=== PATIENT | male | born 1970 | race Caucasian/White ===

== ENCOUNTER 2016-05-04 06:59 | Emergency (ER) | payer OTHER ==
[~2016-05-04] VITALS: Ht 170.2 cm; Wt 70.0 kg
[2016-05-04 07:03] VITALS: BP 131/83; PULSE 78; RESP 15; TEMP 98.3; O2SAT 99
[2016-05-04 07:04] VITALS: BP_SYST 113; BP_DIAS 71; BP_DIAS 75; PULSE 76; RESP 16; O2SAT 99
--- NOTE | 2016-05-04 07:11 | PD ---
HPI Chief Complaint: Chest Pain Time Seen by Provider: 07:02 Travel History International Travel<30 days: No Contact w/Intl Traveler<30days: No Traveled to known affect area: No History of Present Illness HPI Patient is a 45-year-old male presents the emergency department with complaint of chest pain. 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 This was not associated with any chest pain, shortness of breath or palpitations. Patient thought that this was just exertional, and it went away quickly and he has been asymptomatic since. This morning he has had now 3 episodes of substernal chest pain. Describes this as pressure and sharp that lasts for approximately 3-5 seconds and resolves. It does not radiate. He does not have any shortness of breath with this, but does feel slightly lightheaded. Patient denies any history of cardiac disease himself or family. He is a pack per day smoker, but does not have any other cardiac risk factors per patient. He has never had any provocative testing. He does note a history of anxiety. Patient called EMS. Twelve-lead unremarkable. Given 162 mg aspirin en route. Patient is pain-free at this time. [facility] Past Medical History Anxiety: Yes Past Surgical History Surgical History: No Previous Surgery Social History Alcohol Use: No Tobacco Use: Yes (one pack per day) Substance Use: No Allergies-Medications (Allergen,Severity, Reaction): Coded Allergies: No Known Allergies (Unverified , 05/04/16) Reported Meds & Prescriptions Reported Meds & Active Scripts Active No Active Prescriptions or Reported Medications Review of Systems Except as stated in HPI: all other systems reviewed are Neg Physical Exam Narrative GENERAL: Well-appearing male in no acute distress SKIN: Warm and dry. HEAD: Normocephalic. EYES: No scleral icterus. No injection or drainage. ENT: Mucous membranes pink and moist. NECK: Supple CARDIOVASCULAR: Regular rate and rhythm. No murmur appreciated. No reproducible tenderness palpation of the chest wall RESPIRATORY: No accessory muscle use. Clear to auscultation. Breath sounds equal bilaterally. GASTROINTESTINAL: Abdomen soft, non-tender, nondistended. MUSCULOSKELETAL: No obvious deformities. No edema. NEUROLOGICAL: Awake and alert. Normal speech. PSYCHIATRIC: Appropriate mood and affect; insight and judgment normal. Data Data Last Documented VS Vital Signs Date Time Temp Pulse Resp B/P Pulse Ox O2 Delivery O2 Flow Rate FiO2 05/04/16 09:00 68 14 116/64 98 05/04/16 07:04 Room Air 05/04/16 07:03 98.3 Orders Electrocardiogram (05/04/16 07:06) Basic Metabolic Panel (Bmp) (05/04/16 07:06) Ckmb (Isoenzyme) Profile (05/04/16 07:06) Complete Blood Count With Diff (05/04/16 07:06) Magnesium (Mg) (05/04/16 07:06) Prothrombin Time / Inr (Pt) (05/04/16 07:06) Act Partial Throm Time (Ptt) (05/04/16 07:06) Troponin I (05/04/16 07:06) Chest, Single Ap (05/04/16 07:06) Ecg Monitoring (05/04/16 07:06) Bilateral Bp Monitoring (05/04/16 07:06) Iv Access Insert/Monitor (05/04/16 07:06) Oximetry (05/04/16 07:06) Sodium Chloride 0.9% Flush (Ns Flush) (05/04/16 07:15) CKMB (05/04/16 07:10) CKMB% (05/04/16 07:10) Troponin I (05/04/16 09:10) Labs Laboratory Tests Test 05/04/16 05/04/16 07:10 09:15 White Blood Count 7.3 TH/MM3 Red Blood Count 4.97 MIL/MM3 Hemoglobin 13.5 GM/DL Hematocrit 39.6 % Mean Corpuscular Volume 79.6 FL Mean Corpuscular Hemoglobin 27.2 PG Mean Corpuscular Hemoglobin 34.2 % Concent Red Cell Distribution Width 13.5 % Platelet Count 151 TH/MM3 Mean Platelet Volume 8.8 FL Neutrophils (%) (Auto) 62.9 % Lymphocytes (%) (Auto) 21.3 % Monocytes (%) (Auto) 10.0 % Eosinophils (%) (Auto) 5.3 % Basophils (%) (Auto) 0.5 % Neutrophils # (Auto) 4.6 TH/MM3 Lymphocytes # (Auto) 1.5 TH/MM3 Monocytes # (Auto) 0.7 TH/MM3 Eosinophils # (Auto) 0.4 TH/MM3 Basophils # (Auto) 0.0 TH/MM3 CBC Comment DIFF FINAL Differential Comment Prothrombin Time 11.1 SEC Prothromb Time International 1.0 RATIO Ratio Activated Partial 27.3 SEC Thromboplast Time Sodium Level 140 MEQ/L Potassium Level 4.0 MEQ/L Chloride Level 106 MEQ/L Carbon Dioxide Level 27.7 MEQ/L Anion Gap 6 MEQ/L Blood Urea Nitrogen 11 MG/DL Creatinine 1.18 MG/DL Estimat Glomerular Filtration 67 ML/MIN Rate Random Glucose 87 MG/DL Calcium Level 8.3 MG/DL Magnesium Level 2.5 MG/DL Total Creatine Kinase 105 U/L Creatine Kinase MB LESS THAN 0.5 NG/ML Troponin I LESS THAN 0.02 LESS THAN 0.02 NG/ML NG/ML MDM Medical Decision Making Medical Screen Exam Complete: Yes Emergency Medical Condition: Yes Medical Record Reviewed: Yes Differential Diagnosis 45-year-old smoker here with complaint of 3 episodes of sharp/pressure chest pain lasting for seconds this morning. Differential includes ACS, atypical chest pain, anxiety, musculoskeletal, GERD, and less likely PE or dissection. Narrative Course Patient placed on monitor, IV established and blood obtained. Aspirin had been administered prior to arrival and patient is pain-free at this time. Twelve- lead EKG showed sinus rhythm without notable ST abnormalities, normal intervals. CBC, BMP, magnesium, CK-MB, troponin, coags unremarkable. A portable chest x-ray obtained and by my read shows no abnormalities. Given his overall low risk and atypical symptoms and the troponin was repeated in 2 hours without any interval change and remains undetectable. Patient was reassured and instructed to follow-up with PCP as an outpatient to establish care. Diagnosis Primary Impression: Atypical chest pain Referrals: Jennifer Valdez MD call for appointment Patient Assistance Program call for appointment Primary Care Physician call for appointment Additional Instructions: Follow-up with primary care provider to establish care as discussed. Call patient assistance program to see if you qualify. Med/Other Pt SpecificInfo: No Change to Meds Scripts No Active Prescriptions or Reported Meds Disposition: 01 DISCHARGE HOME Condition: Stable Krystina Waldron MD May 04, 2016 07:11
[2016-05-04] MEDS ORDERED: SODIUM CHLORIDE 0.9% FLUSH 5 ML FLUSH IVF PRN (07:15)
[2016-05-04 07:27] LABS: AUTOMATED NEUTROPHIL # 4.6 TH/MM3 (1.8-7.7); BASOPHIL % 0.5 % (0.0-2.0); EOSINOPHIL # 0.4 TH/MM3 (0-0.4); EOSINOPHIL % 5.3 % (0.0-4.0); HEMATOCRIT 39.6 % (39.0-51.0); HEMO FLAGS DIFF FINAL; LYMPH % 21.3 % (9.0-44.0); LYMPHOCYTE # 1.5 TH/MM3 (1.0-4.8); MEAN CELL VOLUME 79.6 FL (80.0-100.0); MEAN CORPUSCULAR HEMOGLOBIN 27.2 PG (27.0-34.0); MEAN CORPUSCULAR HGB CONC 34.2 % (32.0-36.0); NEUT % 62.9 % (16.0-70.0); PLATELET COUNT 151 TH/MM3 (150-450); RED BLOOD COUNT 4.97 MIL/MM3 (4.50-5.90); RED CELL DISTRIBUTION WIDTH 13.5 % (11.6-17.2); WHITE BLOOD COUNT 7.3 TH/MM3 (4.0-11.0)
[2016-05-04 07:37] LABS: APTT (PATIENT) 27.3 SEC (24.3-30.1); PROTHROMBIN TIME - PATIENT 11.1 SEC (9.8-11.6)
--- NOTE | 2016-05-04 07:43 | RADRPT ---
EXAM DATE/TIME: 05/04/2016 07:19 [facility] COMPARISON: No previous studies available for comparison. INDICATIONS : Chest pain. MEDICAL HISTORY : None. SURGICAL HISTORY : None. ENCOUNTER: Initial ACUITY: 1 day PAIN SCORE: 8/10 LOCATION: center chest FINDINGS: A single view of the chest demonstrates the lungs to be symmetrically aerated without evidence of mas s, infiltrate or effusion. The cardiomediastinal contours are unremarkable. Osseous structures are intact. CONCLUSION: No acute disease. Alejo Rowell MD on May 04, 2016 at 7:41 Board Certified Radiologist. This report was verified electronically.
[2016-05-04 07:53] LABS: ANION GAP 6 MEQ/L (5-15); BICARBONATE 27.7 MEQ/L (21.0-32.0); BLOOD UREA NITROGEN 11 MG/DL (7-18); CHLORIDE 106 MEQ/L (98-107); GLOMERULAR FILTRATION RATE 67 ML/MIN (>89); SODIUM (NA) 140 MEQ/L (136-145)
[2016-05-04 07:56] LABS: CREATINE KINASE 105 U/L (39-308); MAGNESIUM 2.5 MG/DL (1.5-2.5)
[2016-05-04 08:08] LABS: CKMB LESS THAN 0.5 NG/ML (0.5-3.6)
[2016-05-04 09:00] VITALS: BP 116/64; PULSE 68; RESP 14; O2SAT 98
[2016-05-04 10:50] VITALS: BP 118/72
--- NOTE | 2016-05-05 08:35 | EKG ---
Date Performed: 05/04/2016 Time Performed: 07:08:31 PTAGE: 45 years EKG: Sinus rhythm NORMAL ECG Compared to prior tracing no significant change DOCTOR: Horace Metz Interpretating Date/Time 05/05/2016 08:34:05
== END 2016-05-04 11:10 | disposition home or self-care (01) ==
LOC: NEPE 06:59
DX: R07.89 Other chest pain (principal); R42 Dizziness and giddiness; F17.210 Nicotine dependence, cigarettes, uncomplicated; X58.XXXA Exposure to other specified factors, initial encounter; Y93.89 Activity, other specified; Y99.0 Civilian activity done for income or pay
CPT/HCPCS: 71010; 80048; 82550; 82552; 83735; 84484; 85025; 85610; 85730; 93005

== ENCOUNTER 2016-07-22 15:59 | Observation (INO) | payer OTHER ==
[~2016-07-22] VITALS: Ht 172.7 cm; Wt 67.5 kg
[2016-07-22 16:08] VITALS: BP 130/80; PULSE 105; RESP 18; TEMP 101; O2SAT 98
[2016-07-22 16:42] VITALS: BP 126/77; PULSE 95; RESP 16; O2SAT 98
[2016-07-22 16:44] VITALS: RESP 16; O2SAT 99
--- NOTE | 2016-07-22 17:07 | PD ---
HPI Chief Complaint: GI Complaint Time Seen by Provider: 16:45 Travel History International Travel<30 days: No Contact w/Intl Traveler<30days: No Traveled to known affect area: No History of Present Illness HPI Patient comes in for evaluation of dark stool and bright red blood on toilet paper ongoing intermittently for 2 months. Patient states that he saw Dr. Galvan approximately 2-3 weeks ago and was told he had a mass in his rectum and colonoscopy is recommended. Patient states he's not had this done yet and was told that if he had symptoms again come back to the emergency department. Patient states he had a dark stool and bright red blood again today and came to the emergency department. Denies any nausea, vomiting, shortness of breath, chest pain, weight loss, fevers, being on any blood thinners, or headaches. Patient had associated difficulty urinating intermittently which is new. Patient reports pressure-like pain in the suprapubic and burning sensation in his rectum. Denies anything making it better. Pain is worse with extended length of sitting. Denies any radiation of the pain. Patient does not want anything for pain at this time. [facility] Past Medical History Anxiety: Yes Medical other: Yes (gi bleed) Social History Alcohol Use: No Tobacco Use: Yes (one pack per day) Substance Use: No Allergies-Medications (Allergen,Severity, Reaction): Coded Allergies: No Known Allergies (Unverified , 07/22/16) Reported Meds & Prescriptions Reported Meds & Active Scripts Active No Active Prescriptions or Reported Medications Review of Systems Except as stated in HPI: all other systems reviewed are Neg Physical Exam Narrative GENERAL: Well-developed, well nourished, in no acute distress, and non-ill appearing. SKIN: Focused skin assessment warm and dry. HEAD: Atraumatic. Normocephalic. EYES: Pupils equal and round. EOMI. No scleral icterus. No injection or drainage. ENT: No nasal bleeding or discharge. Mucous membranes pink and moist. NECK: Trachea midline. Supple. No nuclear rigidity. CARDIOVASCULAR: Regular rate and rhythm. No murmur appreciated. RESPIRATORY: No accessory muscle use. No respiratory distress. Clear to auscultation. Breath sounds equal bilaterally. GASTROINTESTINAL: Abdomen soft, non-tender, nondistended. Hepatic and splenic margins not palpable. Normal bowel sounds 4. No pulsatile mass. RECTAL: Patient refused. MUSCULOSKELETAL: No obvious deformities. No clubbing. No cyanosis. No edema. Full range of motion. NEUROLOGICAL: Awake and alert. No obvious cranial nerve deficits. Motor grossly within normal limits. Normal speech. PSYCHIATRIC: Appropriate mood and affect; insight and judgment normal. Data Data Last Documented VS Vital Signs Date Time Temp Pulse Resp B/P Pulse Ox O2 Delivery O2 Flow Rate FiO2 07/22/16 16:44 16 99 Room Air 07/22/16 16:42 95 126/77 07/22/16 16:08 101.0 Orders Complete Blood Count With Diff (07/22/16 16:27) Comprehensive Metabolic Panel (07/22/16 16:27) Lipase (07/22/16 16:27) Lactic Acid (07/22/16 16:27) Prothrombin Time / Inr (Pt) (07/22/16 16:27) Act Partial Throm Time (Ptt) (07/22/16 16:27) Urinalysis - C+S If Indicated (07/22/16 16:27) Iv Access Insert/Monitor (07/22/16 16:27) Ecg Monitoring (07/22/16 16:27) Oximetry (07/22/16 16:27) Type And Screen (07/22/16 16:27) Ct Abd/Pel W Iv Contrast(Rout) (07/22/16 16:58) Electrocardiogram (07/22/16 16:58) Ct Thorax/ Chest W Iv Contrast (07/22/16 ) (Hub Use Only)Inp Phy Cons/Ref (07/22/16 17:37) Sodium Chlorid 0.9% 500 Ml Inj (Ns 500 M (07/22/16 18:00) Sodium Chlor 0.9% 1000 Ml Inj (Ns 1000 M (07/22/16 18:30) Iohexol 350 Inj (Omnipaque 350 Inj) (07/22/16 18:18) Bladder Scan PRN (07/22/16 18:47) Admit Order (Ed Use Only) (07/22/16 18:49) Labs Laboratory Tests Test 07/22/16 16:50 White Blood Count 8.2 TH/MM3 Red Blood Count 5.00 MIL/MM3 Hemoglobin 13.7 GM/DL Hematocrit 39.1 % Mean Corpuscular Volume 78.2 FL Mean Corpuscular Hemoglobin 27.3 PG Mean Corpuscular Hemoglobin 34.9 % Concent Red Cell Distribution Width 14.9 % Platelet Count 187 TH/MM3 Mean Platelet Volume 8.7 FL Neutrophils (%) (Auto) 63.9 % Lymphocytes (%) (Auto) 22.6 % Monocytes (%) (Auto) 8.1 % Eosinophils (%) (Auto) 5.0 % Basophils (%) (Auto) 0.4 % Neutrophils # (Auto) 5.3 TH/MM3 Lymphocytes # (Auto) 1.9 TH/MM3 Monocytes # (Auto) 0.7 TH/MM3 Eosinophils # (Auto) 0.4 TH/MM3 Basophils # (Auto) 0.0 TH/MM3 CBC Comment DIFF FINAL Differential Comment Prothrombin Time 10.7 SEC Prothromb Time International 1.0 RATIO Ratio Activated Partial 25.6 SEC Thromboplast Time Sodium Level 144 MEQ/L Potassium Level 3.7 MEQ/L Chloride Level 109 MEQ/L Carbon Dioxide Level 28.1 MEQ/L Anion Gap 7 MEQ/L Blood Urea Nitrogen 14 MG/DL Creatinine 0.96 MG/DL Estimat Glomerular Filtration 85 ML/MIN Rate Random Glucose 91 MG/DL Lactic Acid Level 1.4 mmol/L Calcium Level 8.6 MG/DL Total Bilirubin 0.3 MG/DL Aspartate Amino Transf 26 U/L (AST/SGOT) Alanine Aminotransferase 33 U/L (ALT/SGPT) Alkaline Phosphatase 59 U/L Total Protein 6.8 GM/DL Albumin 3.3 GM/DL Lipase 170 U/L Blood Type A POSITIVE Antibody Screen NEGATIVE MDM Medical Decision Making Medical Screen Exam Complete: Yes Emergency Medical Condition: Yes Interpretation(s) EKG reviewed by Dr. Morocho shows sinus rhythm ventricular rate of 81. No STEMI. Differential Diagnosis Anemia, GI bleed, rectal cancer, rectal mass, metastatic disease, other Narrative Course Postvoid bladder scan performed by RN showing 138 cc. Patient was seen and examined. Initial laboratory radiologic studies were obtained and reviewed. I believe the initial temperature that was documented was is mechanical or human air as patient receiving no medication and temperature was rechecked 98.3. Discussed patient with Dr. Galvan, who is agreeable to admit patient. Discussed patient with Dr. Morocho, who is in agreement with plan of care and disposition. Discussed all findings and plan of care with patient, who is agreeable for admission. All questions were answered. Patient remained stable throughout ER course. Physician Communication Physician Communication [phone] Galvan recommends placing the patient observation for bowel prep and colonoscopy tomorrow performed by him. Diagnosis Primary Impression: Rectal mass Admitting Information Admitting Physician Requests: Observation Scripts No Active Prescriptions or Reported Meds Condition: Stable Michael Crawford July 22, 2016 17:07
[2016-07-22 17:13] LABS: AUTOMATED NEUTROPHIL # 5.3 TH/MM3 (1.8-7.7); BASOPHIL % 0.4 % (0.0-2.0); EOSINOPHIL # 0.4 TH/MM3 (0-0.4); HEMATOCRIT 39.1 % (39.0-51.0); HEMO FLAGS DIFF FINAL; LYMPH % 22.6 % (9.0-44.0); LYMPHOCYTE # 1.9 TH/MM3 (1.0-4.8); MEAN CELL VOLUME 78.2 FL (80.0-100.0); MEAN CORPUSCULAR HEMOGLOBIN 27.3 PG (27.0-34.0); MEAN CORPUSCULAR HGB CONC 34.9 % (32.0-36.0); MONO % 8.1 % (0.0-8.0); NEUT % 63.9 % (16.0-70.0); PLATELET COUNT 187 TH/MM3 (150-450); RED CELL DISTRIBUTION WIDTH 14.9 % (11.6-17.2); WHITE BLOOD COUNT 8.2 TH/MM3 (4.0-11.0)
[2016-07-22 17:21] LABS: APTT (PATIENT) 25.6 SEC (24.3-30.1); PROTHROMBIN TIME - PATIENT 10.7 SEC (9.8-11.6)
[2016-07-22 17:36] LABS: ALT (GPT) 33 U/L (12-78); ANION GAP 7 MEQ/L (5-15); AST (GOT) 26 U/L (15-37); BICARBONATE 28.1 MEQ/L (21.0-32.0); BLOOD UREA NITROGEN 14 MG/DL (7-18); CHLORIDE 109 MEQ/L (98-107); GLOMERULAR FILTRATION RATE 85 ML/MIN (>89); POTASSIUM 3.7 MEQ/L (3.5-5.1); SODIUM (NA) 144 MEQ/L (136-145)
[2016-07-22 17:39] LABS: ALKALINE PHOSPHATASE 59 U/L (45-117); TOTAL BILIRUBIN ADULT 0.3 MG/DL (0.2-1.0)
[2016-07-22] MEDS ORDERED: SODIUM CHLORID 0.9% 500 ML INJ 500 ML IV ONE (18:00)
[2016-07-22] MEDS ORDERED: IOHEXOL 350 MG/ML 10 ML VIAL (for RAD DIAG) IV ONE (18:18)
--- NOTE | 2016-07-22 18:29 | RADRPT ---
EXAM DATE/TIME: 07/22/2016 18:08 [facility] COMPARISON: CT ABDOMEN & PELVIS W CONTRAST, February 17, 2016, 21:49. INDICATIONS : Abdomen pain with rectal bleeding. IV CONTRAST: 100 cc Omnipaque 350 (iohexol) IV ; Cumulative dose for multiple exams. ORAL CONTRAST: No oral contrast ingested. RADIATION DOSE: 7.68 CTDIvol (mGy) ; Combined studies - Thorax/Abdomen/Pelvis MEDICAL HISTORY : None SURGICAL HISTORY : None. ENCOUNTER: Initial ACUITY: 1 day PAIN SCALE: 5/10 LOCATION: Bilateral abdomen TECHNIQUE: Volumetric scanning of the abdomen and pelvis was performed. Using automated exposure control and ad justment of the mA and/or kV according to patient size, radiation dose was kept as low as reasonably achievable to obtain optimal diagnostic quality images. FINDINGS: LOWER LUNGS: The visualized lower lungs are clear. LIVER: Homogeneous density without lesion. There is no dilation of the biliary tree. No calcified gallston es. There is mild hepatic steatosis. SPLEEN: Normal size without lesion. PANCREAS: Within normal limits. KIDNEYS: Normal in size and shape. There is no mass, stone or hydronephrosis. ADRENAL GLANDS: Within normal limits. VASCULAR: There is no aortic aneurysm. BOWEL/MESENTERY: The stomach, small bowel, and colon demonstrate no acute abnormality. There is no free intraperitone al air or fluid. ABDOMINAL WALL: Within normal limits. RETROPERITONEUM: There is no lymphadenopathy. BLADDER: No wall thickening or mass. REPRODUCTIVE: Within normal limits. INGUINAL: There is no lymphadenopathy or hernia. MUSCULOSKELETAL: Within normal limits for patient age. CONCLUSION: 1. Unremarkable bowel gas pattern. 2. Mild hepatic steatosis. Giuliano Damian MD on July 22, 2016 at 18:24 Board Certified Radiologist. This report was verified electronically.
[2016-07-22] MEDS ORDERED: SODIUM CHLOR 0.9% 1000 ML INJ 1,000 ML IV ONE (18:30)
--- NOTE | 2016-07-22 18:30 | RADRPT ---
EXAM DATE/TIME: 07/22/2016 18:08 [facility] COMPARISON: CHEST SINGLE AP, May 04, 2016, 7:19. INDICATIONS : Chest pain. Abdominal pain and rectal bleeding. IV CONTRAST: 100 cc Omnipaque 350 (iohexol) IV ; Cumulative dose for multiple exams. RADIATION DOSE: 7.68 CTDIvol (mGy) ; Combined studies - Thorax/Abdomen/Pelvis MEDICAL HISTORY : None SURGICAL HISTORY : None. ENCOUNTER: Initial ACUITY: 1 day PAIN SCALE: 5/10 LOCATION: Bilateral cranial TECHNIQUE: Volumetric scanning of the chest was performed. Using automated exposure control and adjustment of t he mA and/or kV according to patient size, radiation dose was kept as low as reasonably achievable to obtain optimal diagnostic quality images. FINDINGS: LUNGS: There is no consolidation or pneumothorax. No concerning pulmonary nodule is visualized. There is mi ld atelectasis in the dependent portions of the lung bases. PLEURA: There is no pleural thickening or pleural effusion. MEDIASTINUM: The heart and great vessels demonstrate no acute abnormality. There is no mediastinal or hilar lymph adenopathy. AXILLAE: Within normal limits. No lymphadenopathy. SKELETAL: Within normal limits for patient age. MISCELLANEOUS: The visualized upper abdominal organs demonstrate no acute abnormality. CONCLUSION: Unremarkable exam. Giuliano Damian MD on July 22, 2016 at 18:27 Board Certified Radiologist. This report was verified electronically.
[2016-07-22 19:26] LABS: BLOOD, URINE NEG (NEG); COMMENT (UR) CULT NOT INDICATED; CULTURE IF INDICATED CULT NOT INDICATED; GLUCOSE,URINE NEG (NEG); KETONE, URINE NEG (NEG); MUCUS URINE FEW /lpf (OCC); NITRITE,URINE NEG (NEG); URINE COLOR YELLOW (YELLW/STRAW)
[2016-07-22] MEDS ORDERED: SODIUM CHLORIDE 0.9% FLUSH 10 ML FLUSH IVF PRN (21:00)
[2016-07-22] MEDS ORDERED: MAGNESIUM CITRATE SOLN 300 ML BTL PO ONE (21:15)
[2016-07-22] MEDS ORDERED: SODIUM CHLOR 0.9% 1000 ML INJ 1,000 ML IV SCH (21:15)
[2016-07-22] MEDS: SODIUM CHLORIDE 0.9% FLUSH 10 ML FLUSH IV FLUSH SCH (22:14)
[2016-07-22] MEDS: NS + KCL 20 MEQ INJ 1,000 ML IV SCH (22:14)
[2016-07-22 22:15] VITALS: BP 122/86; PULSE 81; RESP 14; O2SAT 98
[2016-07-23] VITALS: BP 132/96; PULSE 92; RESP 20; TEMP 97.1; O2SAT 100
[2016-07-23] MEDS ORDERED: POVIDONE IODINE 5% (ANTISEPSIS KIT) 4 APPLICATIONS EACH NARE PRN (05:00)
[2016-07-23] MEDS ORDERED: INSULIN HUMAN REGULAR 1,000 UNITS/10 ML VIAL SQ PRN (05:00)
[2016-07-23] MEDS ORDERED: METOPROLOL TARTRATE 25 MG TAB PO PRN (05:00)
[2016-07-23] MEDS ORDERED: LACTATED RINGER'S 1000 ML IV PRN (05:00)
[2016-07-23] MEDS ORDERED: CHLORHEXIDINE GLUCONATE 2 % 1 PACK (2 CLOTHS) TOPICAL PRN (05:00)
[2016-07-23 08:00] VITALS: BP 124/89; PULSE 109; RESP 17; TEMP 96.6; O2SAT 100
[2016-07-23] MEDS: SODIUM CHLORIDE 0.9% FLUSH 10 ML FLUSH IV FLUSH SCH ×2 (09:00→20:58)
[2016-07-23] MEDS: NS + KCL 20 MEQ INJ 1,000 ML IV SCH ×2 (09:13→20:58)
--- NOTE | 2016-07-23 09:34 | MB ---
cc: ANDRADE ESTRADA M.D. DATE OF 1970 DATE OF SERVICE 07/23/[address] Andrade Estrada CHIEF COMPLAINT [address]. Estrada requests consultation for Mr. West regarding rectal mass. HISTORY OF PRESENT ILLNESS Mr. West is a 45-year-old man with no significant past history. He notes hemorrhoidal bleeding for several months. He has had increasing difficulty with pain in his rectum as well as tenesmus. He was seen by Dr. Estrada in clinic. He was advised to go into the emergency room with worsening symptoms which he had. He presented to the emergency room on 07/22/2016 and was seen by Errol Crawford PA-C. He was discussed with Dr. Estrada and subsequently admitted. He was seen by Dr. Estrada earlier this morning. His rectal mass was confirmed through rectal examination. He is pending colonoscopy today by Dr. Estrada. He declined a rectal exam as he has already had one earlier. He complains of feeling fatigued. 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 He denies any weight loss and reports fluctuating 5 or 10 pounds. Denies any headaches. No urinary complaints. He has no other medical problems. PAST MEDICAL HISTORY Anxiety. Hemorrhoidal bleeding. PAST SURGICAL HISTORY None. SOCIAL HISTORY Drinks alcohol rarely. He smokes a pack a day and tends to quit. Denies any illicit drug use. ALLERGIES No known drug allergies. MEDICATIONS No medications from home. FAMILY HISTORY Mother was diagnosed with breast cancer in her 60s. Father of liver disease in his 40s. PHYSICAL EXAMINATION VITAL SIGNS: Temperature 96.6, heart rate 109, respiratory rate 17, blood pressure 124/89, saturation 100%. GENERAL: Mr. West is a 45-year-old man who looks his stated age. His pupils are round and reactive to light and accommodation. Oropharynx is clear. NECK: Supple with no adenopathy. LUNGS: Clear. CARDIOVASCULAR: Exam reveals a normal rate and rhythm. ABDOMEN: Benign. LOWER EXTREMITIES: With no edema. RECTAL EXAM: Declined by the patient. LABORATORY DATA Hemoglobin of 13.7, MCV 78.2. Chemistry - BUN and creatinine are normal. Albumin is decreased at 3.3. IMAGING STUDIES CT scan of the chest was unremarkable. CT scan abdomen and pelvis shows mild steatohepatosis. ASSESSMENT AND PLAN Ms. West is a 45-year-old man with history of anxiety, hemorrhoidal bleeding. He has evidence of fatty liver by imaging study. He presents with tenesmus, rectal bleeding and pain. He is confirmed to have a rectal mass by Dr. Estrada. He is pending diagnostic biopsy, colonoscopy today. I had a lengthy discussion with Mr. West in general terms for treatment of a presumed rectal cancer. We await obviously the final biopsy confirming the diagnosis. We discussed staging CT scan of the chest, abdomen and pelvis did not show any evidence of metastatic disease. He may benefit from endoscopic ultrasound to determine the extent of the disease in the rectum and for evaluation of any other lymph nodes locally. In general, rectal cancer is treated with concurrent chemotherapy and radiation. The presence of lymph node or more extensive disease would suggest that adjuvant systemic chemotherapy would be necessary. Dr. Estrada is assessing him for the type of surgery that can be offered pending his extent of disease. Given his age of diagnosis and mother's history of breast cancer, he may benefit from genetic counseling. He will be offered consultation with genetic counselor. He will require followup on an outpatient basis as well as radiation oncology when the diagnosis of rectal cancer is confirmed. He has microcytosis suspicious for iron deficiency. He has symptoms consistent with iron deficiency as well as his rectal bleeding. Iron studies are performed. If iron deficiency is confirmed, an upper endoscopy may also be necessary to rule out a higher source of GI bleeding than in the rectum. His questions were answered to his satisfaction. Vielka Harrell MD RAD/SSB /8:56 AM /9:09 AM
--- NOTE | 2016-07-23 09:42 | MB ---
cc: MIKAEL CAICEDO M.D., ANDREW H. M.D. DATE OF CONSULTATION 07/23/2016 DATE OF 1970 CHIEF COMPLAINT Rectal mass, presumed rectal cancer, pathology pending, not yet biopsied. BRIEF HISTORY This is a 45-year-old gentleman who gives a history of having had a changing pattern of bowel function. He has had alternating constipation and diarrhea associated with blood in his stool. This has progressed to the onset of tenesmus, pain when sitting and painful bowel motions. He was apparently seen in the past by Dr. Galvan who recommended biopsies, but this had not been accomplished. He subsequently came to the emergency room last evening because of progressive symptoms associated with pain and was admitted to the hospital for further workup and assessment. He has gone on to have a CT scan of the abdomen and pelvis. This reported unremarkable bowel gas pattern, mild hepatic stenosis and no evidence of disease and specifically no evidence of metastases. Additionally, he has had a CT scan of his chest performed which was considered unremarkable. He has had blood work revealing a white count of 8200, hemoglobin 13.7 and a platelet count of 187. His electrolytes were within normal limits. His CEA was 1.3. PAST MEDICAL HISTORY His past medical history is unremarkable. He denies diabetes or heart disease. He denies previous illnesses and he has had no previous surgery. FAMILY HISTORY AND SOCIAL HISTORY He is with four children. He denies alcohol use, although he does use tobacco. He denies substance abuse. He has had a family member with colorectal cancer. He grew up in the [facility] and went to [employer]. He previously worked in [employer], but in the recent past has been unemployed. ALLERGIES None known. MEDICATIONS On no medications. REVIEW OF SYSTEMS CONSTITUTIONAL: Denies fever, sweats or weight loss. ALLERGIES: None known. HEAD, EYES, EARS, NOSE, AND THROAT: No visual problems. No difficulty hearing. No problem swallowing. No altered taste. NECK: No pain or masses. RESPIRATORY: Denies shortness of breath, cough, sputum or hemoptysis. CARDIOVASCULAR: Denies chest pains, palpitations or ankle swelling. GI: Has erectile dysfunction with symptoms as noted above. Denies nausea or vomiting. : Denies dysuria, hematuria or urgency. MUSCULOSKELETAL: Denies significant musculoskeletal complaints. NEUROLOGIC: Denies seizure, stroke, weakness or memory loss. ENDOCRINE: Denies diabetes or thyroid disease. SKIN: No skin cancers or rashes. HEMATOLOGIC: Rectal bleeding. PHYSICAL EXAM Today on exam, this gentleman is alert and oriented. VITAL SIGNS: His vital signs as documented in the chart reveal that he is afebrile with a pulse of 92 and regular, respiratory rate of 17, a blood pressure of 124/89 and a pulse oximetry on room air of 100%. HEAD, EYES, EARS, NOSE, AND THROAT: There was no jaundice. His conjunctive and eyelids are normal. She had full EOMs. Inspection of his oral cavity and oropharynx was normal. There is no evidence of adenopathy in the head and neck or supraclavicular regions. LUNGS: His lung bases were resonant on percussion clear with auscultation and there is no effusion or bronchial breathing. CARDIAC: He had a normal first and second heart sound without murmurs, rubs or bruits and his rate and rhythm was normal. There was no clubbing or axillary adenopathy. ABDOMEN: There are no abdominal masses, tenderness or splenomegaly. There is no inguinal femoral adenopathy. RECTAL: Exam revealed normal sphincter tone and perineum anteriorly. At this at the level of the prostate apex and extending further into the rectum was an elevated ulcerating mass. It did not appear to be circumferential. It extended for 4-5 cm. This was a painful lesion for him. There were no other findings on my rectal exam. EXTREMITIES: There is no ankle edema. NEUROLOGIC: Power, tone and gait were normal. REVIEW OF DATA Today, I have pulled up this gentleman's imaging and reviewed this on the monitor. I have shared the results with this gentleman and made him aware that there appears to be no evidence of metastases. This would be supported by his normal level CEA although that is not absolute. I agree with Dr. Galvan that this appears to be a rectal cancer. A biopsy course is necessary, but in this setting I would recommend preoperative radiation treatment and chemotherapy when pathology is confirmed followed by surgery in 6-8 weeks as determined by Dr. Galvan. I have reviewed how radiation is delivered, as well as the potential acute side effects. We have discussed principally diarrhea which can be controlled with medications like Imodium, fatigue and urinary bladder sensitivity. This gentleman was in agreement. I told him that while we wait for biopsy and pathology, I would like to coordinate his simulation so that we are ready to start treatment as soon as his diagnosis is confirmed. Thank you again for asking us to see this gentleman. MD TOBIN Sanchez/SHELBY /9:10 AM /9:32 AM
[2016-07-23 11:24] LABS: FERRITIN 12 NG/ML (26-388); TRANSFERRIN IRON PROFILE 221 MG/DL (200-360)
[2016-07-23 12:00] VITALS: BP 121/82; PULSE 89; RESP 16; TEMP 97.5; O2SAT 97
[2016-07-23 16:00] VITALS: BP 110/79; PULSE 75; RESP 16; TEMP 96.9; O2SAT 100
[2016-07-23] MEDS ORDERED: PROPOFOL 200 MG/20 ML AMP IV ONE (17:38)
--- NOTE | 2016-07-23 18:23 | EKG ---
Date Performed: 07/22/2016 Time Performed: 19:02:35 PTAGE: 45 years EKG: Sinus rhythm NORMAL ECG Compared to prior tracing no significant change. PREVIOUS TRACING : 05/04/2016 07.08 DOCTOR: Horace Metz Interpretating Date/Time 07/23/2016 18:21:52
[2016-07-23 20:00] VITALS: BP 152/96; PULSE 91; RESP 20; TEMP 96.7; O2SAT 100
[2016-07-24] VITALS: BP 120/80; PULSE 84; RESP 20; TEMP 97.5; O2SAT 97
--- NOTE | 2016-07-24 06:11 | MR ---
cc: ANDRADE ESTRADA M.D. DATE July 23, 2016 PREOPERATIVE DIAGNOSIS Rectal mass. PROCEDURE Limited colonoscopy with biopsies. POSTOPERATIVE DIAGNOSES 1. Very poor prep. 2. Large rectal mass with ulceration, friability and partial obstruction. SURGEON Dr. Estrada PROCEDURE The patient was placed in the left lateral decubitus position. After anesthesia sedation, rectal exam confirmed a very irregular, hard mass in the rectal vault starting just above the levators and extending mostly anteriorly, but encompassing at least half or more of the circumference of the bowel wall. Olympus colonoscope was then introduced into the rectum and advanced under direct vision through the rectum and rectosigmoid noting a very poor prep with quite a bit of solid and liquid stool present. The power retail pharmacy technician was used to irrigate quite a bit of the intraluminal fecal material but as we progressed proximally the prep became even worse with more solid stool. At point in the transverse colon it appeared that the prep was becoming more unsuitable for visualization and proximal advancement and even with irrigation the procedure was felt best to be terminated. The colonoscope was therefore gradually withdrawn visualizing the mucosal surface throughout the distal colon. No obvious obstructions no luminal inflammation was seen until the rectal vault was reached at which point a very ulcerated, friable mass was noted in the vault extending for quite a few cm. Random biopsies of the mass were obtained in several areas; it was quite hard. The lumen was easily passable but it was definitely compromised. The patient tolerated the procedure quite well and was brought to the recovery room in stable condition. MD LOLA Powell/GARY /11:14 PM /6:01 AM
[2016-07-24 08:00] VITALS: BP 101/58; PULSE 76; RESP 14; TEMP 97.3; O2SAT 97
[2016-07-24] MEDS: SODIUM CHLORIDE 0.9% FLUSH 10 ML FLUSH IV FLUSH SCH (09:00)
--- NOTE | 2016-07-24 09:47 | MH ---
cc: ANDRADE ESTRADA M.D. DATE OF ADMISSION: 07/22/2016 ADMITTING DIAGNOSIS Rectal bleeding, rectal pain, probable rectal cancer. CHIEF COMPLAINT Mr. West is a 45-year-old male who complains of severe rectal pain and bleeding. HISTORY OF PRESENT ILLNESS Mr. West is in relatively good health, seen in the emergency room back in December 2015 for rectal bleeding, presumed to be hemorrhoid in origin. Evaluation at that time made him aware of a mass in the rectum which was suspicious for a growth, possibly a cancer. Unfortunately, the patient has not had follow-up care since that visit, presenting recently to my office complaining of increasing pain, tenesmus and rectal bleeding. He denies any abdominal distension but has had increased frequency of stools, urgency and quite a bit of pelvic pressure, and also some difficulty with voiding. He says his appetite has been fair and he thinks he may have lost about 10 pounds over the last six months. Denies any nausea or vomiting. No melena. Evaluation in the office did confirm a rather significant rectal mass consistent with a carcinoma. The patient was to undergo evaluation by patient assistance for his pending colonoscopy, x-ray studies and oncologic work-up. Today he presented to the emergency room with increasing amounts of bleeding, rectal pain and difficulty urinating. He was seen in the ER and found to have a fever of 101 and was admitted for additional work-up and more rapid evaluation. PAST MEDICAL HISTORY Anxiety disorder. No abdominal surgery. 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 Drinks alcohol socially. Does smoke about a pack a day of cigarettes. ALLERGIES No known allergies. FAMILY HISTORY Mother did have breast cancer. Father of liver disease, probably from alcohol. No history of colon or rectal cancer. PHYSICAL EXAMINATION GENERAL: A very pleasant, anxious young male in no acute distress. HEENT: Remarkable for somewhat pale dry membranes, non-icteric sclera. NECK: Supple without gross adenopathy. CHEST: Relatively clear, symmetrically expanding. HEART: Regular rhythm. ABDOMEN: Soft, slightly rounded but not distended. Some tympany. No rebound or guarding or masses noted. RECTAL: Anal inspection reveals some benign external hemorrhoidal tags, not much prolapse. Digital exam reveals a mass palpable almost circumferential starting in the distal rectal vault extending almost to the dentate line, very friable and bleeding on the finger. EXTREMITIES: No cyanosis or clubbing, and minimal trace pedal edema. IMPRESSION AND PLAN Probable rectal cancer. Lengthy discussion with the patient and his family. The patient will be admitted for gentle bowel prep and colonoscopy with biopsy of the mass. Appears at office visit to be a rectal cancer but potential for a squamous cell cancer is always possible. CT scan of the chest, abdomen and pelvis has been ordered for additional metastatic work-up. Will get an oncologist and radiation therapist to see him in preparation for pre-op treatment unless it is a squamous cell carcinoma. Hopefully, the patient can have pre-op treatment without a diverting colostomy and then will have to reassess the tumor size and location for resectability and possible preservation of the anorectal sphincter with a low pelvic anastomosis versus abdominoperineal resection. Will get a routine CEA level and have him undergo the bowel prep as soon as possible. MD LOLA Powell/ROMELIA /11:23 AM /9:38 AM
[2016-07-24 12:00] VITALS: BP 108/62; PULSE 77; RESP 14; TEMP 97.1; O2SAT 96
[2016-07-24 16:00] VITALS: BP 120/69; PULSE 77; RESP 16; TEMP 97.7; O2SAT 97
--- NOTE | 2016-07-24 16:55 | HHI.PR ---
Subjective Remarks C/R Surg afebrile, VSS UO good isadora PO no BRB Objective - Vital Signs Date Time Temp Pulse Resp B/P Pulse Ox O2 Delivery O2 Flow Rate FiO2 07/24/16 16:00 97.7 77 16 120/69 97 07/23/16 18:21 21 07/22/16 22:15 Room Air Result Diagram: 07/22/16 1650 07/22/16 1650 Objective Remarks PE alert Abd - soft, min tympany, non-tender A/P Assessment and Plan Imp: path pending simulated for RT OK for DC home - RTO 1 week RT/Oncology fu next week Daniel Galvan MD July 24, 2016 16:55
== END 2016-07-24 16:49 | disposition home or self-care (01) ==
LOC: NEPC 15:59 → NEDA 18:50 → N07B 22:54
PROVIDERS: ADMIT Colon & Rectal Surgery; ATTEND Colon & Rectal Surgery
DX: C20 Malignant neoplasm of rectum (principal); F17.210 Nicotine dependence, cigarettes, uncomplicated
CPT/HCPCS: 45380; 71260; 74177; 80053; 81001; 82378; 82728; 83540; 83550; 83605; 83690; 85025; 85610; 85730; 86850; 86900; 86901; 88305; 93005; 96374; 99285; G0378; J3480; J7030; Q9967; 99222

== ENCOUNTER 2016-11-15 07:07 | Inpatient (IN) | payer OTHER ==
[2016-11-15] VITALS (35 sets, daily range): BP systolic 107–154; BP diastolic 60–87; PULSE 125–146; RESP 16–51; TEMP 98–101.4; O2SAT 84–100
[~2016-11-15] VITALS: Ht 172.7 cm; Wt 60.2 kg
[2016-11-15] MEDS ORDERED: [UNRECOGNIZED DRUG - OTHER] (07:19)
[2016-11-15] MEDS ORDERED: PERC5TAB12 PO (07:19)
[2016-11-15] MEDS ORDERED: SODIUM CHLOR 0.9% 1000 ML INJ 100 ML IV ONE (07:24)
[2016-11-15] MEDS ORDERED: SODIUM CHLOR 0.9% 1000 ML INJ 1,000 ML IV ONE ×3 (07:24→13:00)
[2016-11-15] MEDS ORDERED: ONDANSETRON HCL 4 MG/2 ML VIAL IV ONE (07:30)
[2016-11-15] MEDS ORDERED: ACETAMINOPHEN 325 MG TAB PO ONE (07:30)
--- NOTE | 2016-11-15 07:36 | PD ---
HPI Chief Complaint: Respiratory Distress Time Seen by Provider: 07:16 Travel History International Travel<30 days: No Contact w/Intl Traveler<30days: No Traveled to known affect area: No History of Present Illness HPI A 45 year old male presents to the emergency department with shortness of breath and fever. This began about 24 hours ago while at home and it has become worse so he wanted to get evaluated. The patient also developed a productive cough and feels "achy" throughout his body. He is unaware of any alleviating or aggravating factors. He denies any throat pain, congestion, or dysuria. The patient has a hx of rectal cancer which is currently being treated with radiation. The patient's symptoms are moderate, there are no current alleviating or exacerbating factors. The patient's oncologist is, Dr. Harrell and his colorectal surgeon is Dr. Galvan. The patient does not have a primary physician. History Past Medical History Tetanus Vaccination: Unknown Influenza Vaccination: No Past Surgical History Surgical History: No Previous Surgery Social History Alcohol Use: No Tobacco Use: Yes (one pack per day) Allergies-Medications (Allergen,Severity, Reaction): Coded Allergies: No Known Allergies (Unverified , 11/15/16) Reported Meds & Prescriptions Reported Meds & Active Scripts Active Reported [nausea medication] Percocet (Oxycodone-Acetaminophen) 5-325 mg Tab 1 Tab PO Q4H PRN Review of Systems Except as stated in HPI: all other systems reviewed are Neg General / Constitutional: Positive: Fever, No: Chills Respiratory: Positive: Cough, Shortness of Breath, No: Sneezing Gastrointestinal: Positive: Nausea, Vomiting, Abdominal Pain Musculoskeletal: Positive: Myalgias Physical Exam Narrative GENERAL: Well-nourished, well-developed patient who appears in mild respiratory distress. SKIN: Warm and dry. HEAD: Normocephalic. Atraumatic. EYES: No scleral icterus. No injection or drainage. ENT: Dry mucous membranes. NECK: Supple, trachea midline. No JVD or lymphadenopathy. CARDIOVASCULAR: Regular, tachycardic with a heart rate of 130. RESPIRATORY: Diminished breath sounds in the left lung base. No crackles or wheezing. No accessory muscle use. GASTROINTESTINAL: Abdomen soft, vague midline tenderness, nondistended. EXTREMITIES: No cyanosis, or edema. NEUROLOGICAL: Awake, alert, and oriented x 3. Non-focal. Data Data Last Documented VS Vital Signs Date Time Temp Pulse Resp B/P (MAP) Pulse Ox O2 Delivery O2 Flow Rate FiO2 11/15/16 09:00 128 17 132/71 (91) 100 Nasal Cannula 11/15/16 08:45 98.5 2.00 Orders Orders Complete Blood Count With Diff (11/15/16 07:24) Comprehensive Metabolic Panel (11/15/16 07:24) Prothrombin Time / Inr (Pt) (11/15/16 07:24) Act Partial Throm Time (Ptt) (11/15/16 07:24) Lactic Acid Sepsis Protocol (11/15/16 07:24) Magnesium (Mg) (11/15/16 07:24) Lipase (11/15/16 07:24) Ckmb (Isoenzyme) Profile (11/15/16 07:24) Troponin I (11/15/16 07:24) Urinalysis - C+S If Indicated (11/15/16 07:24) Influenzae A/B Antigen (11/15/16 07:24) Blood Culture (11/15/16 07:24) Chest, Single Ap (11/15/16 07:24) Blood Glucose (11/15/16 07:24) Ecg Monitoring (11/15/16 07:24) Iv Access Insert/Monitor (11/15/16 07:24) Oximetry (11/15/16 07:24) Oxygen Administration (11/15/16 07:24) Acetaminophen (Tylenol) (11/15/16 07:30) Ondansetron Inj (Zofran Inj) (11/15/16 07:30) Sodium Chlor 0.9% 1000 Ml Inj (Ns 1000 M (11/15/16 07:24) Sodium Chlor 0.9% 1000 Ml Inj (Ns 1000 M (11/15/16 07:24) Sodium Chlor 0.9% 1000 Ml Inj (Ns 1000 M (11/15/16 07:24) Cefepime Inj (Maxipime Inj) (11/15/16 07:45) Azithromycin Inj (Zithromax Inj) (11/15/16 07:45) Albuterol-Ipratropium Neb (Duoneb Neb) (11/15/16 08:00) Potassium Chloride (Kcl) (11/15/16 08:30) Potassium Chlor 20 Meq Premix (Kcl 20 Me (11/15/16 08:30) Morphine Inj (Morphine Inj) (11/15/16 08:45) Urine Culture (11/15/16 08:20) Ct Thorax/ Chest Wo Iv Contras (11/15/16 ) Admit Order (Ed Use Only) (11/15/16 08:59) Labs Laboratory Tests Test 11/15/16 07:30 11/15/16 08:20 White Blood Count 9.2 TH/MM3 Red Blood Count 3.76 MIL/MM3 Hemoglobin 9.8 GM/DL Hematocrit 28.8 % Mean Corpuscular Volume 76.4 FL Mean Corpuscular Hemoglobin 26.2 PG Mean Corpuscular Hemoglobin Concent 34.2 % Red Cell Distribution Width 15.4 % Platelet Count 55 TH/MM3 Mean Platelet Volume 9.3 FL Neutrophils (%) (Auto) 90.3 % Lymphocytes (%) (Auto) 1.7 % Monocytes (%) (Auto) 7.8 % Eosinophils (%) (Auto) 0.1 % Basophils (%) (Auto) 0.1 % Neutrophils # (Auto) 8.3 TH/MM3 Lymphocytes # (Auto) 0.2 TH/MM3 Monocytes # (Auto) 0.7 TH/MM3 Eosinophils # (Auto) 0.0 TH/MM3 Basophils # (Auto) 0.0 TH/MM3 CBC Comment AUTO DIFF Differential Comment AUTO DIFF CONFIRMED Platelet Estimate LOW Platelet Morphology Comment ENLARGED Prothrombin Time 13.3 SEC Prothromb Time International Ratio 1.2 RATIO Activated Partial Thromboplast Time 32.5 SEC Blood Urea Nitrogen 44 MG/DL Creatinine 2.29 MG/DL Random Glucose 118 MG/DL Total Protein 6.5 GM/DL Albumin 2.0 GM/DL Calcium Level 7.5 MG/DL Magnesium Level 1.8 MG/DL Alkaline Phosphatase 141 U/L Aspartate Amino Transf (AST/SGOT) 31 U/L Alanine Aminotransferase (ALT/SGPT) 26 U/L Total Bilirubin 1.9 MG/DL Sodium Level 130 MEQ/L Potassium Level 2.8 MEQ/L Chloride Level 94 MEQ/L Carbon Dioxide Level 24.6 MEQ/L Anion Gap 11 MEQ/L Estimat Glomerular Filtration Rate 31 ML/MIN Lactic Acid Level 1.2 mmol/L Total Creatine Kinase 20 U/L Troponin I LESS THAN 0.02 NG/ML Lipase 107 U/L Urine Color YELLOW Urine Turbidity CLOUDY Urine pH 6.0 Urine Specific Malcolm 1.015 Urine Protein 30 mg/dL Urine Glucose (UA) NEG mg/dL Urine Ketones NEG mg/dL Urine Occult Blood SMALL Urine Nitrite NEG Urine Bilirubin NEG Urine Urobilinogen 4.0 MG/DL Urine Leukocyte Esterase LARGE Urine RBC 5 /hpf Urine WBC 113 /hpf Urine WBC Clumps FEW Urine Squamous Epithelial Cells <1 /hpf Urine Amorphous Sediment MOD Urine Bacteria FEW /hpf Urine Mucus FEW /lpf Microscopic Urinalysis Comment CATH-CULTURE IND MDM Medical Decision Making Medical Screen Exam Complete: Yes Emergency Medical Condition: Yes Medical Record Reviewed: Yes Interpretation(s) EKG reveals sinus tachycardia with a heart rate of 135. Laboratory Tests Test 11/15/16 07:30 11/15/16 08:20 White Blood Count 9.2 TH/MM3 Red Blood Count 3.76 MIL/MM3 Hemoglobin 9.8 GM/DL Hematocrit 28.8 % Mean Corpuscular Volume 76.4 FL Mean Corpuscular Hemoglobin 26.2 PG Mean Corpuscular Hemoglobin Concent 34.2 % Red Cell Distribution Width 15.4 % Platelet Count 55 TH/MM3 Mean Platelet Volume 9.3 FL Neutrophils (%) (Auto) 90.3 % Lymphocytes (%) (Auto) 1.7 % Monocytes (%) (Auto) 7.8 % Eosinophils (%) (Auto) 0.1 % Basophils (%) (Auto) 0.1 % Neutrophils # (Auto) 8.3 TH/MM3 Lymphocytes # (Auto) 0.2 TH/MM3 Monocytes # (Auto) 0.7 TH/MM3 Eosinophils # (Auto) 0.0 TH/MM3 Basophils # (Auto) 0.0 TH/MM3 CBC Comment AUTO DIFF Differential Comment AUTO DIFF CONFIRMED Platelet Estimate LOW Platelet Morphology Comment ENLARGED Prothrombin Time 13.3 SEC Prothromb Time International Ratio 1.2 RATIO Activated Partial Thromboplast Time 32.5 SEC Blood Urea Nitrogen 44 MG/DL Creatinine 2.29 MG/DL Random Glucose 118 MG/DL Total Protein 6.5 GM/DL Albumin 2.0 GM/DL Calcium Level 7.5 MG/DL Magnesium Level 1.8 MG/DL Alkaline Phosphatase 141 U/L Aspartate Amino Transf (AST/SGOT) 31 U/L Alanine Aminotransferase (ALT/SGPT) 26 U/L Total Bilirubin 1.9 MG/DL Sodium Level 130 MEQ/L Potassium Level 2.8 MEQ/L Chloride Level 94 MEQ/L Carbon Dioxide Level 24.6 MEQ/L Anion Gap 11 MEQ/L Estimat Glomerular Filtration Rate 31 ML/MIN Lactic Acid Level 1.2 mmol/L Total Creatine Kinase 20 U/L Troponin I LESS THAN 0.02 NG/ML Lipase 107 U/L Urine Color YELLOW Urine Turbidity CLOUDY Urine pH 6.0 Urine Specific Malcolm 1.015 Urine Protein 30 mg/dL Urine Glucose (UA) NEG mg/dL Urine Ketones NEG mg/dL Urine Occult Blood SMALL Urine Nitrite NEG Urine Bilirubin NEG Urine Urobilinogen 4.0 MG/DL Urine Leukocyte Esterase LARGE Urine RBC 5 /hpf Urine WBC 113 /hpf Urine WBC Clumps FEW Urine Squamous Epithelial Cells <1 /hpf Urine Amorphous Sediment MOD Urine Bacteria FEW /hpf Urine Mucus FEW /lpf Microscopic Urinalysis Comment CATH-CULTURE IND Last Impressions Chest X-Ray 11/15/16 0724 Signed Impressions: Service Date/Time: Tuesday, November 15, 2016 07:37 - CONCLUSION: New bilateral mild basilar air space opacities which may represent subsegmental atelectasis versus evolving airspace consolidation. Katie Nevarez MD Chest CT 11/15/16 0000 Signed Impressions: Service Date/Time: Tuesday, November 15, 2016 09:10 - CONCLUSION: Multiple new solid and cavitary irregular nodules seen throughout the lungs bilaterally. These may represent foci of metastatic disease, however, given that these are new as compared to the prior exam of July 2016 concern is for possible septic emboli given the cavitary lesions. Small right-sided pleural effusion also favors possible infectious source. Katie Nevarez MD Differential Diagnosis Differential diagnosis includes pneumonia, influenza, pulmonary embolism, pleural effusion, sepsis, immunocompromise. Narrative Course IV was established, blood was drawn and labs were sent. The patient was placed on cardiac telemetry and continuous pulse oximetry monitoring. A chest x-ray was obtained. Chest x-ray reveals bibasilar opacities consistent with pneumonia. The patient has been in the hospital recently for radiation therapy and is currently on oral chemotherapy, is immunocompromised. Therefore, patient was treated with cefepime and Zithromax. The patient was administered 3 L of IV fluids and duo nebs 2. Patient also received Tylenol 650 mg orally for fever. The patient's creatinine is elevated at 2.29, last creatinine was 1.0. Lactic acid is unremarkable. The patient's UA is positive with 113 wbc' s. However, the patient did continue be tachycardic with a heart rate in the 120. He does meet severe sepsis criteria, is immunocompromised, may benefit from ICU admission overnight. Therefore, the on-call optical glass inspector was paged for admission. Critical Care Narrative Aggregate critical care time was 35 minutes. Time to perform other separately billable procedures was not included in the critical care time. My time did not include minutes spent treating any other patients simultaneously or on activities that did not directly contribute to the patient's treatment. The services I provided to this patient were to treat and/or prevent clinically significant deterioration that could result in: Anoxia, hypoxia, septic shock. I provided critical care services requiring my management, as noted below: Chart data review, documentation time, medication orders and management, vital sign assessments/reviewing monitor data, ordering and reviewing lab tests, ordering and interpreting/reviewing x-rays and diagnostic studies, care of the patient and discussion of the patient with the admitting physicians. Sepsis Criteria SIRS Criteria (2 or more): Temp > 100.9 or < 96.8, Heart rate over 90, RR > 20 or PaCO2 < 32 Sepsis Criteria (SIRS+source): Infect source susp/known Severe Sepsis (+one): Acute Oliguria/Renal Failure Criteria Outcome: Meets severe sepsis criteria Physician Communication Physician Communication The on-call optical glass inspector was paged for admission. I discussed the patient with Dr. Mccullough who agrees with admission. Diagnosis Primary Impression: Bilateral pneumonia Qualified Codes: J18.9 - Pneumonia, unspecified organism Additional Impressions: Severe sepsis UTI (urinary tract infection) Qualified Codes: N39.0 - Urinary tract infection, site not specified Admitting Information Admitting Physician Requests: Admit Condition: Stable Gilmer Bay MD Nov 15, 2016 07:36
[2016-11-15] MEDS ORDERED: CEFEPIME INJ 2,000 MG in SODIUM CHLORIDE 0.9% INJ 100 ML IV ONE (07:45)
[2016-11-15] MEDS ORDERED: AZITHROMYCIN INJ 500 MG in SODIUM CHLOR 0.9% 250 ML INJ 250 ML IV ONE (07:45)
--- NOTE | 2016-11-15 07:47 | RADRPT ---
EXAM DATE/TIME: 11/15/2016 07:37 [facility] COMPARISON: CHEST SINGLE AP, May 04, 2016, 7:19. INDICATIONS : Short of breath MEDICAL HISTORY : None. SURGICAL HISTORY : None. ENCOUNTER: Initial ACUITY: 2 days PAIN SCORE: 0/10 LOCATION: chest FINDINGS: Upright portable view of the chest demonstrates mild hypoinflation and subtle bilateral basilar airsp josue opacities which are new as compared to the prior exam. The lungs are otherwise clear. No evidence of pneumothorax. Heart size is normal. Vasculature is normal. CONCLUSION: New bilateral mild basilar air space opacities which may represent subsegmental atelectasis versus ev olving airspace consolidation. Katie Nevarez MD on November 15, 2016 at 7:44 Board Certified Radiologist. This report was verified electronically.
[2016-11-15 07:56] LABS: APTT (PATIENT) 32.5 SEC (24.3-30.1); INTERNATIONAL NORMALIZED RATIO 1.2 RATIO; PROTHROMBIN TIME - PATIENT 13.3 SEC (9.8-11.6)
[2016-11-15] MEDS ORDERED: RESP: ALBUTEROL 2.5 MG/IPRATROPIUM 0.5 MG NEB (SCH) NEB ONE (08:00)
[2016-11-15 08:16] LABS: ALKALINE PHOSPHATASE 141 U/L (45-117); ALT (GPT) 26 U/L (12-78); ANION GAP 11 MEQ/L (5-15); AST (GOT) 31 U/L (15-37); BICARBONATE 24.6 MEQ/L (21.0-32.0); BLOOD UREA NITROGEN 44 MG/DL (7-18); CHLORIDE 94 MEQ/L (98-107); GLOMERULAR FILTRATION RATE 31 ML/MIN (>89); MAGNESIUM 1.8 MG/DL (1.5-2.5); SODIUM (NA) 130 MEQ/L (136-145); TOTAL BILIRUBIN ADULT 1.9 MG/DL (0.2-1.0)
[2016-11-15 08:17] LABS: AUTOMATED NEUTROPHIL # 8.3 TH/MM3 (1.8-7.7); BASOPHIL % 0.1 % (0.0-2.0); EOSINOPHIL % 0.1 % (0.0-4.0); HEMATOCRIT 28.8 % (39.0-51.0); LYMPH % 1.7 % (9.0-44.0); LYMPHOCYTE # 0.2 TH/MM3 (1.0-4.8); MEAN CELL VOLUME 76.4 FL (80.0-100.0); MEAN CORPUSCULAR HEMOGLOBIN 26.2 PG (27.0-34.0); MEAN CORPUSCULAR HGB CONC 34.2 % (32.0-36.0); MONO % 7.8 % (0.0-8.0); NEUT % 90.3 % (16.0-70.0); PLATELET COUNT 55 TH/MM3 (150-450); RED BLOOD COUNT 3.76 MIL/MM3 (4.50-5.90); RED CELL DISTRIBUTION WIDTH 15.4 % (11.6-17.2); WHITE BLOOD COUNT 9.2 TH/MM3 (4.0-11.0)
[2016-11-15 08:18] LABS: CREATINE KINASE 20 U/L (39-308)
[2016-11-15 08:19] LABS: HEMO FLAGS AUTO DIFF; POTASSIUM 2.8 MEQ/L (3.5-5.1)
[2016-11-15] MEDS ORDERED: POTASSIUM CHLORIDE 20 MEQ CONTROLLED RELEASE TAB PO ONE (08:30)
[2016-11-15 08:42] LABS: PLATELET ESTIMATE SMEAR LOW (NORMAL); PLATELET MORPHOLOGY ENLARGED (NORMAL); SCAN/DIFF AUTO DIFF CONFIRMED
[2016-11-15 08:44] LABS: BACTERIA, URINE FEW /hpf; BLOOD, URINE SMALL (NEG); GLUCOSE,URINE NEG (NEG); KETONE, URINE NEG (NEG); MUCUS URINE FEW /lpf (OCC); NITRITE,URINE NEG (NEG); SQUAMOUS EPITHELIAL CELL URINE <1 /hpf (0-5); URINE COLOR YELLOW (YELLW/STRAW)
[2016-11-15] MEDS ORDERED: MORPHINE SULFATE 4 MG/ML INJ IV PUSH ONE (08:45)
[2016-11-15 08:47] LABS: COMMENT (UR) CATH-CULTURE IND; CULTURE IF INDICATED CATH CULTURE IND
[2016-11-15] MEDS: POTASSIUM CHLOR 20 MEQ PREMIX 100 ML IV SCH ×2 (08:52→17:03)
[2016-11-15] MEDS ORDERED: RESP: IPRATROPIUM 0.5 MG/2.5 ML NEB INH PRN (09:00)
[2016-11-15] MEDS ORDERED: MISCELLANEOUS NURSING INFORMATION XX SCH (09:00)
[2016-11-15] MEDS ORDERED: CHLORHEXIDINE GLUCONATE 2 % 1 PACK (2 CLOTHS) TOP PRN (09:00)
[2016-11-15] MEDS ORDERED: SENNOSIDES 8.6 MG TAB PO PRN (09:00)
[2016-11-15] MEDS ORDERED: MAGNESIUM HYDROXIDE SUSP 30 ML CUP PO PRN (09:00)
[2016-11-15] MEDS ORDERED: BISACODYL 10 MG SUPP RECTAL PRN (09:00)
[2016-11-15] MEDS ORDERED: LACTULOSE SYRUP 20 GM/30 ML CUP PO PRN (09:00)
--- NOTE | 2016-11-15 09:27 | RADRPT ---
EXAM DATE/TIME: 11/15/2016 09:10 [facility] COMPARISON: CHEST SINGLE AP, November 15, 2016, 7:37. CT THORAX W CONTRAST, July 22, 2016, 18:08. INDICATIONS : Pneumonia.History colon cancer.Chest pain. Shortness of Breath.Cough. RADIATION DOSE: 3.33 CTDIvol (mGy) MEDICAL HISTORY : Carcinoma, colon. Radiation. SURGICAL HISTORY : None. ENCOUNTER: Initial ACUITY: 2 days PAIN SCALE: 8/10 LOCATION: Bilateral chest TECHNIQUE: Volumetric scanning of the chest was performed. Using automated exposure control and adjustment of t he mA and/or kV according to patient size, radiation dose was kept as low as reasonably achievable to obtain optimal diagnostic quality images. DICOM format image data is available electronically for r eview and comparison. Follow-up recommendations for detected pulmonary nodules are based at a minimum on nodule size and pa tient risk factors according to Fleischner Society Guidelines. FINDINGS: LUNGS: The lungs are significant for multiple rounded solid and cavitary irregular nodules seen throughout t he lungs bilaterally as well as a small right-sided pleural effusion. These findings are new as jeannie red to the prior exam of July 2016. PLEURAE: Small right-sided pleural effusion. MEDIASTINUM: The heart and great vessels demonstrate no acute abnormality. There is no mediastinal or hilar lymph adenopathy. AXILLAE: Within normal limits. No lymphadenopathy. MUSCULOSKELETAL: Within normal limits for patient age. MISCELLANEOUS: The liver and spleen appear mildly enlarged but are incompletely imaged on this exam. CONCLUSION: Multiple new solid and cavitary irregular nodules seen throughout the lungs bilaterally. These may re present foci of metastatic disease, however, given that these are new as compared to the prior exam o f July 2016 concern is for possible septic emboli given the cavitary lesions. Small right-sided pleura l effusion also favors possible infectious source. Katie Nevarez MD on November 15, 2016 at 9:19 Board Certified Radiologist. This report was verified electronically.
[2016-11-15] MEDS ORDERED: DEXTROSE 50% IN WATER 50 ML VIAL(D50) IV PRN (09:45)
[2016-11-15] MEDS ORDERED: GLUCAGON 1 MG/ML VIAL OTHER PRN (09:45)
[2016-11-15] MEDS: RESP: ALBUTEROL 2.5 MG/IPRATROPIUM 0.5 MG NEB (SCH) INH ×3 (09:59→21:04)
[2016-11-15] MEDS ORDERED: VANCOMYCIN INJ 1,000 MG in SODIUM CHLOR 0.9% 250 ML INJ 250 ML IV ONE (10:00)
[2016-11-15] MEDS ORDERED: Vancomycin Consult Pharmacy 1 EA OTHER SCH (10:00)
[2016-11-15] MEDS: PANTOPRAZOLE SODIUM 40 MG VIAL IV SCH (10:27)
[2016-11-15] MEDS: SODIUM CHLOR 0.9% 1000 ML INJ 1,000 ML IV SCH ×3 (10:27→23:59)
--- NOTE | 2016-11-15 10:46 | RADRPT ---
EXAM DATE/TIME: 11/15/2016 10:26 [facility] COMPARISON: No previous studies available for comparison. INDICATIONS : Increased Bun and Creatinine. MEDICAL HISTORY : Carcinoma, colon. SURGICAL HISTORY : None. ENCOUNTER: Initial ACUITY: 1 day PAIN SCORE: 10/10 LOCATION: Bilateral flank MEASUREMENTS: RIGHT KIDNEY: 11.2 x 6.4 x 4.7 cm LEFT KIDNEY: 12.5 x 6.3 x 5.7 cm FINDINGS: RIGHT KIDNEY: Renal cortex is normal in thickness and echotexture. No hydronephrosis, stone, or mass. LEFT KIDNEY: Renal cortex is normal in thickness and echotexture. No hydronephrosis, stone, or mass. BLADDER: Within normal limits given the degree of distension. CONCLUSION: Normal examination. Katie Nevarez MD on November 15, 2016 at 10:44 Board Certified Radiologist. This report was verified electronically.
[2016-11-15] MEDS: INSULIN NovoLIN REGULAR SUPPLEMENTAL SCALE SQ SCH ×3 (11:00→23:00)
[2016-11-15] MEDS: DOCUSATE SODIUM 50 MG/SENNA 8.6 MG TAB PO SCH ×2 (11:00→20:20)
--- NOTE | 2016-11-15 11:00 | PD.ID.CON ---
History of Present Illness Service ID Consult Requested By Reason for Consult Evaluation and Mment of Sepsis in an Immune compromised patient. Primary Care Physician Jennifer Valdez MD Diagnoses: History of Present Illness is a 45 y/o CM with history of Rectal Cancer (Invasive moderately differentiated Adenocarcinoma with no prior lung or distant mets), and has no port or PICC line and has been receiving oral chemotherapy. Patient is followed by Dr. Vielka Harrell. Patient also sees colorectal surgeon and has undergone colonoscopy but no definite surgery. Patient also has been seeing Dr. Santana radiation oncologist and has been undergoing radiation therapy. Reportedly, the patient's last radiation therapy was on Wednesday before admission. PMHx: Patient initially presented with lower abdominal pain in January 2016. Next patient presented in April 2016 with lower abdominal pain brought in by [facility] with rectal bleeding from a [facility]. Patient was referred to Dr. Galvan colorectal surgeon. Patient was again seen in July 2016 for ongoing rectal bleeding for several months and underwent a colonoscopy which showed invasive moderately differentiated adenocarcinoma. Multiple consultants were involved and the determination was made that he did not have any lung or any other distant metastasis. Patient was eventually placed on chemotherapy and radiation therapy. Patient's mother reports that he has not been compliant with his oral chemotherapy regimen. It appears that he does comply with radiation therapy. With this background patient presents to [facility] emergency department accompanied with his mother. Patient's temperature on admission was 100 and later increased to 101.4, heart rate was 142, blood pressure 107/63 63 on presentation and currently is 157/77. Lactic acid normal. His white count on admission was 9.2 H&H 9.8/28, platelets 55, sodium 1:30, potassium 2.8, creatinine 2.29. Sepsis workup was initiated on admission and blood cultures are pending. Urine and other studies are pending. UA appears to be abnormal. Patient underwent chest x-ray which was suggestive of bilateral pneumonia. Given his history of being immune compromised patient underwent a CT of the chest which shows bilateral cavitary lesions which is suggestive of possible septic emboli. In the emergency department patient received 1 dose of cefepime as well as azithromycin and was subsequently switched to Zosyn, azithromycin and vancomycin IV. Infectious disease was consulted for the management of sepsis, pneumonia in an immune compromised patient. Review of Systems ROS Limitations: Poor Historian Constitutional: COMPLAINS OF: Diaphoretic episodes, Fatigue, Fever, Weight loss , Chills, Change in appetite, DENIES: Weight gain, Dizziness, Night Sweats Endocrine: DENIES: Heat/cold intolerance, Polydipsia, Polyuria, Polyphagia Eyes: DENIES: Blurred vision, Diplopia, Eye inflammation, Eye pain, Vision loss , Photosensitivity, Double Vision Ears, nose, mouth, throat: DENIES: Tinnitus, Hearing loss, Vertigo, Nasal discharge, Oral lesions, Throat pain, Hoarseness, Ear Pain, Running Nose, Epistaxis, Sinus Pain, Toothache, Odynophagia Respiratory: COMPLAINS OF: Cough, Sputum production (white small amounts) Cardiovascular: COMPLAINS OF: Chest pain (pleuritic-type.), DENIES: Palpitations, Syncope, Dyspnea on Exertion, PND, Lower Extremity Edema, Orthopnea, Claudication Gastrointestinal: COMPLAINS OF: Abdominal pain, Constipation, Nausea, Vomiting , Anorexia, DENIES: Black stools, Bloody stools, Diarrhea, Difficulty Swallowing Genitourinary: DENIES: Sexual dysfunction, Urinary frequency, Urinary incontinence, Urgency, Hematuria, Dysuria, Nocturia, Penile Discharge, Testicular Pain, Testicular Swelling Musculoskeletal: DENIES: Joint pain, Muscle aches, Stiffness, Joint Swelling, Back pain, Neck pain Integumentary: DENIES: Abnormal pigmentation, Nail changes, Pruritus, Rash Hematologic/lymphatic: DENIES: Bruising, Lymphadenopathy Immunologic/allergic: COMPLAINS OF: Eczema, Urticaria Neurologic: DENIES: Abnormal gait, Headache, Localized weakness, Paresthesias, Seizures, Speech Problems, Tremor, Poor Balance Psychiatric: DENIES: Anxiety, Confusion, Mood changes, Depression, Hallucinations, Agitation, Suicidal Ideation, Homicidal Ideation, Delusions Except as stated in HPI: all other systems reviewed are Neg Past Family Social History Allergies: Coded Allergies: No Known Allergies (Unverified , 11/15/16) Past Medical History Colon Cancer IVDA Past Surgical History None Reported Medications Reported Meds & Active Scripts Active Reported [nausea medication] Percocet (Oxycodone-Acetaminophen) 5-325 mg Tab 1 Tab PO Q4H PRN Active Ordered Medications Current Medications Medications (Trade) Dose Ordered Sig/Osvaldo Route Start Time Stop Time Status Last Admin (Protonix Inj) 40 mg DAILY IV 11/15/16 10:00 11/15/16 10:27 (Duoneb Neb) 1 ampule Q6HR NEB INH 11/15/16 10:00 11/15/16 09:59 (Atrovent Neb) 0.5 mg Q2HR NEB PRN INH 11/15/16 09:00 Miscellaneous Information 1 Q361D XX 11/15/16 09:00 (Chlorhexidine 2% Cloth) 3 pack Taper DAILY@04 TOP 11/16/16 04:00 11/12/17 03:59 (Chlorhexidine 2% Cloth) 3 pack UNSCH PRN TOP 11/15/16 09:00 (Marina-Colace) 1 tab BID PO 11/15/16 11:00 (Milk Of Magnesia Liq) 30 ml Q12H PRN PO 11/15/16 09:00 (Senokot) 17.2 mg Q12H PRN PO 11/15/16 09:00 (Dulcolax Supp) 10 mg DAILY PRN RECTAL 11/15/16 09:00 (Lactulose Liq) 30 ml DAILY PRN PO 11/15/16 09:00 (D50w (Vial) Inj) 50 ml UNSCH PRN IV 11/15/16 09:45 (Glucagon Inj) 1 mg UNSCH PRN OTHER 11/15/16 09:45 (NovoLIN R SUPPLEMENTAL SCALE) 1 Q6H SQ 11/15/16 11:00 Sodium Chloride 1,000 ml @ 125 mls/hr Q8H IV 11/15/16 09:45 11/15/16 10:27 Piperacillin Sod/ Tazobactam Sod 50 ml @ 100 mls/hr Q6H IV 11/15/16 12:00 Azithromycin 500 mg/Sodium Chloride 250 ml @ 250 mls/hr Q24H IV 11/16/16 08:00 Pharmacy Profile Note 0 ml @ 0 mls/hr UNSCH OTHER 11/15/16 10:00 Sodium Chloride 1,000 ml @ 999 mls/hr BOLUS ONCE IV 11/15/16 12:15 11/15/16 13:15 UNV (Percocet 5-325 Mg) 1 tab Q6H PRN PO 11/15/16 12:15 UNV Family History Mother had breast cancer, father had liver disease Multiple family members with colon cancer. Social History Intravenous drug abuse, denies any alcohol or smoking. Lives with his mother. Physical Exam Vital Signs Vital Signs Date Time Temp Pulse Resp B/P (MAP) Pulse Ox O2 Delivery O2 Flow Rate FiO2 11/15/16 10:43 131 19 151/77 (101) 99 Nasal Cannula 2.00 11/15/16 10:00 125 20 154/75 (101) 98 Nasal Cannula 2.00 11/15/16 09:00 128 17 132/71 (91) 100 Nasal Cannula 11/15/16 08:45 98.5 129 18 130/69 (89) 99 Nasal Cannula 2.00 11/15/16 08:15 130 19 127/72 (90) 98 Nasal Cannula 2.00 11/15/16 07:45 138 17 115/60 (78) 99 Nasal Cannula 2.00 11/15/16 07:30 Nasal Cannula 2.00 11/15/16 07:26 101.4 138 20 115/60 (78) 97 Nasal Cannula 2.00 11/15/16 07:20 92 Room Air 11/15/16 07:20 Nasal Cannula 2.00 11/15/16 07:11 100.0 142 36 107/63 (78) 94 Room Air Physical Exam GENERAL: This is a well-nourished, well-developed patient, in no apparent distress. SKIN: No rashes, ecchymoses or lesions. Cool and dry. HEAD: Atraumatic. Normocephalic. No temporal or scalp tenderness. EYES: Pupils equal round and reactive. Extraocular motions intact. No scleral icterus. No injection or drainage. ENT: Nose without bleeding, purulent drainage or septal hematoma. Throat without erythema, tonsillar hypertrophy or exudate. Uvula midline. Airway patent. NECK: Trachea midline. Supple, nontender, no meningeal signs. CARDIOVASCULAR: Regular rate and rhythm without murmurs, gallops, or rubs. RESPIRATORY: Clear to auscultation. Breath sounds equal bilaterally. No wheezes , rales, or rhonchi. GASTROINTESTINAL: Abdomen soft, non-tender, nondistended. MUSCULOSKELETAL: Extremities without clubbing, cyanosis, or edema. No joint tenderness, effusion, or edema noted. No calf tenderness. Negative Homans sign bilaterally. NEUROLOGICAL: Awake and alert. Grossly nonfocal. Rectal deferred. Psych cooperative, flat affect. IV line sites with no evidence of infection. Laboratory Laboratory Tests Test 11/15/16 07:30 11/15/16 08:20 White Blood Count 9.2 Red Blood Count 3.76 Hemoglobin 9.8 Hematocrit 28.8 Mean Corpuscular Volume 76.4 Mean Corpuscular Hemoglobin 26.2 Mean Corpuscular Hemoglobin Concent 34.2 Red Cell Distribution Width 15.4 Platelet Count 55 Mean Platelet Volume 9.3 Neutrophils (%) (Auto) 90.3 Lymphocytes (%) (Auto) 1.7 Monocytes (%) (Auto) 7.8 Eosinophils (%) (Auto) 0.1 Basophils (%) (Auto) 0.1 Neutrophils # (Auto) 8.3 Lymphocytes # (Auto) 0.2 Monocytes # (Auto) 0.7 Eosinophils # (Auto) 0.0 Basophils # (Auto) 0.0 CBC Comment AUTO DIFF Differential Comment AUTO DIFF CONFIRMED Platelet Estimate LOW Platelet Morphology Comment ENLARGED Prothrombin Time 13.3 Prothromb Time International Ratio 1.2 Activated Partial Thromboplast Time 32.5 Blood Urea Nitrogen 44 Creatinine 2.29 Random Glucose 118 Total Protein 6.5 Albumin 2.0 Calcium Level 7.5 Magnesium Level 1.8 Alkaline Phosphatase 141 Aspartate Amino Transf (AST/SGOT) 31 Alanine Aminotransferase (ALT/SGPT) 26 Total Bilirubin 1.9 Sodium Level 130 Potassium Level 2.8 Chloride Level 94 Carbon Dioxide Level 24.6 Anion Gap 11 Estimat Glomerular Filtration Rate 31 Lactic Acid Level 1.2 Total Creatine Kinase 20 Troponin I LESS THAN 0.02 Lipase 107 Urine Color YELLOW Urine Turbidity CLOUDY Urine pH 6.0 Urine Specific [place] 1.015 Urine Protein 30 Urine Glucose (UA) NEG Urine Ketones NEG Urine Occult Blood SMALL Urine Nitrite NEG Urine Bilirubin NEG Urine Urobilinogen 4.0 Urine Leukocyte Esterase LARGE Urine RBC 5 Urine WBC 113 Urine WBC Clumps FEW Urine Squamous Epithelial Cells <1 Urine Amorphous Sediment MOD Urine Bacteria FEW Urine Mucus FEW Microscopic Urinalysis Comment CATH-CULTURE IND Date/Time Source Procedure Growth Status 11/15/16 07:35 Blood Peripheral Aerobic Blood Culture Pending Received 11/15/16 07:35 Blood Peripheral Anaerobic Blood Culture Pending Received 11/15/16 07:30 Nasal Aspirate Influenza Types A,B Antigen (MAHOGANY) - Final NEGATIVE FOR FLU A AND B ANTIGEN.... Complete 11/15/16 08:20 Urine Catheterized Urine Urine Culture Pending Received Result Diagram: 11/15/16 0730 11/15/16 0730 Imaging Last Impressions Chest X-Ray 11/15/16 0724 Signed Impressions: Service Date/Time: Tuesday, November 15, 2016 07:37 - CONCLUSION: New bilateral mild basilar air space opacities which may represent subsegmental atelectasis versus evolving airspace consolidation. Katie Nevarez MD Renal Ultrasound 11/15/16 0000 Signed Impressions: Service Date/Time: Tuesday, November 15, 2016 10:26 - CONCLUSION: Normal examination. Katie Nevarez MD Chest CT 11/15/16 0000 Signed Impressions: Service Date/Time: Tuesday, November 15, 2016 09:10 - CONCLUSION: Multiple new solid and cavitary irregular nodules seen throughout the lungs bilaterally. These may represent foci of metastatic disease, however, given that these are new as compared to the prior exam of July 2016 concern is for possible septic emboli given the cavitary lesions. Small right-sided pleural effusion also favors possible infectious source. Katie Nevarez MD Assessment and Plan Assessment and Plan Severe Sepsis (fever, tachy, low BP, bandemia, source: lung, endocarditis) Probable Endocarditis/bacteremia Lung lesions: septic emboli most likely. Other differentials include cancer related mets. Very less likely to be fungal or TB. Acute renal failure: prerenal, sepsis. Acute metabolic encephalopathy: sepsis, less likely to be meningitis. Hyponatremia: Infection, metabolic, meningitis Recommendations: Continue Zosyn IV Continue Vanco IV (target trough 15-20) DC Azithro IV cannot give tobramycin as in [facility]. Follow cultures Follow clinically. Check 2 D ECHO. Patient admitted to doing drugs multiple times 3-4 weeks back. Check Hepatitis Profile Check HIV Check urine legionella and Pneumo Ag. Will need CT A/P and Brain once Cr improves. Will assess in am Plan d/w Mom and patient. Case d.w , [facility]. Time spent in excess of 80 mins total. Critical thinking, decision making, reviewed MAR. d/w Multiple health care team members. Lucille Lizama MD Nov 15, 2016 10:59
--- NOTE | 2016-11-15 11:21 | MH ---
cc: WILL SPRINGER M.D. DATE OF : 1970 DATE OF ADMISSION: 11/15/2016 ADMITTING DIAGNOSIS: Critical care admission HISTORY OF PRESENT ILLNESS: The patient is a 45-year-old male with past medical history of colon cancer on radiation treatment last session on Wednesday and has been on radiation for the past 2-3 months being followed by Dr. Harrell, his oncologist, and Dr. Galvan. He presented to [facility] emergency department with a couple of days history of shortness of breath, pleuritic chest pain with deep inspiration, dry cough and feeling nauseous. The patient denies any exposure to sick contacts. In addition, he denies any prior history of pneumonia or flu. He was found to have a temperature of 101.4 orally in the ER. In addition he was tachycardiac with heart rate of 120s to 130s. Chest x-ray in the ER showed new bilateral mild air space opacities. The patient subsequently had CT scan of the chest which showed multiple new solid and cavitary irregular nodules seen throughout the lungs bilaterally, and small right-sided pleural effusion. His laboratory data is significant for renal failure with a creatinine level of 2.29 and hypokalemia with a potassium level of 2.8. His lactic acid level measured at 1.2. The patient also is thrombocytopenic with a platelet count of 55, however, his INR is 1.2. In the ED he was given three liters of Crystalloid in addition to cefepime, azithromycin, Tylenol and DuoNeb. When seen in the ER he was on room air oxygen with saturation 96%. However, tachycardiac with heart rate of 123 and blood pressure 154/75. He denies any vomiting, abdominal pain. PAST MEDICAL HISTORY: Significant for colon cancer. PAST SURGICAL HISTORY Unremarkable. ALLERGIES NO KNOWN DRUG ALLERGIES. SOCIAL HISTORY Occasional smoker and drinker. MEDICATIONS AT HOME Percocet p.r.n. FAMILY HISTORY Reviewed and noncontributory. REVIEW OF SYSTEMS As per HPI. The rest of the review of systems is unremarkable. PHYSICAL EXAMINATION: The patient is a 45 year-old male lying in bed in mild distress. VITAL SIGNS: Temperature 101.4, pulse of 123, blood pressure 1545, saturation 96% on room air. HEENT: Atraumatic, normocephalic, pupils equal round reactive to light and accommodation, extraocular muscles intact. Conjunctivae pink. Nonicteric sclerae. Oral mucosa within normal. Neck: Supple. No JVD, adenopathy, thyromegaly. Trachea midline Cardiovascular: Exam tachycardiac, normal S1-S2. No murmurs, rubs or gallops noted. Pulmonary exam: Bilateral equal air entry with a few coarse breath sounds. Abdomen: Soft, nontender, no distension. Positive bowel sounds. Extremities: No cyanosis, clubbing or edema. Neuro: No focal sensory deficit. LABORATORY DATA Sodium of 130, potassium 2.8, chloride 94, CO2 24, BUN 44, creatinine 2.29, glucose 180, lactic acid 1.2. Total bilirubin 1.9, AST 31, ALT 26, ALK phos 141, total CK 20. Troponin less than 0.02. WBC 9.2, hemoglobin 9.8, hematocrit 28, platelet count 55, INR 1.2, PT 13.3, PTT 32. Urinalysis showed large leukocyte esterase 113, WBC 5, RBC few bacteria. RADIOGRAPHY CT chest showed multiple new solid and cavitary irregular nodules. IMPRESSION 1. Respiratory insufficiency. Solid and cavitary nodules bilaterally. Differential diagnosis, Metastatic disease versus septic emboli. 2. Accumulated acquired pneumonia. 3. Urinary tract infection. 4. Acute renal failure. 5. Hypokalemia. 6. Anemia and thrombocytopenia. 7. Colon cancer on radiation treatment. RECOMMENDATIONS 1. Monitor neuro status and avoid any sedatives. 2. Oxygen p.r.n. to maintain sats above 92%. 3. Bronchodilator in the form of DuoNeb q6 plus q2 p.r.n. for shortness of breath. 4. CT scan of the chest reviewed which showed cavitary and irregular nodules throughout the lungs bilaterally. Differential diagnosis septic emboli versus metastatic disease. 5. Monitor heart rate and blood pressure closely and maintain MAP greater than 65 mmHg. 6. Will obtain 2-D echocardiogram to rule out vegetations. 7. He was given 3 liters of Crystalloid in the ED. Will continue with maintenance fluids in the form of NS at 125 mL an hour. 8. Monitor renal function I&O and avoid nephrotoxins. Insert the Ricketts, continue with IV fluids as stated above. The patient is receiving potassium replacement for K of 2.9. Will obtain renal ultrasound to rule out hydronephrosis. 9. Keep n.p.o. for now. Place on Protonix 40 milligrams IV daily for GI prophylaxis. 10. Continue with broad-spectrum antibiotic. Will continue with Zosyn, azithromycin and vancomycin. 11. Nasal aspirate in the ED is negative for influenzae. Follow up on the blood and urine culture. In addition will check strep pneumoniae, Legionella, urinary antigen. 12. Will consult Infectious Disease service. The case discussed with Dr. Miley Lizama. 13. Monitor CBC. Check fibrinogen level. 14. Will consult Dr. Harrell from oncology regarding his colon cancer as the patient is known to her. 15. Place on sliding scale insulin with Accu-Cheks for glycemic control. 16. GI prophylaxis with Protonix 40 milligrams daily and DVT prophylaxis with SCDs. Will hold off on chemical anticoagulation prophylaxis for now given the underlying thrombocytopenia. Further recommendations will be based on the hospital course. MD CHLOE Donaldson/BLAINE /10:09 AM /10:51 AM
[2016-11-15 11:44] LABS: BLOOD GAS BASE EXCESS -5.6 mmol/L (-2-2); BLOOD GAS CARBOXYHEMOGLOBIN 1.7 % (0-4); BLOOD GAS HCO3 18 mmol/L (22-26); BLOOD GAS METHEMOGLOBIN 1.1 % (0-2); BLOOD GAS O2 HGB SATURATION 92 % (90-100); BLOOD GAS OXYGEN CONTENT 12.4 Vol % (12.0-20.0); BLOOD GAS PCO2 26 mmHg (38-42); BLOOD GAS PO2 77 mmHg (61-120); BLOOD GAS TOTAL HGB 9.5 G/DL (12.0-16.0); TEMP CORR TO 98.6
[2016-11-15 11:45] LABS: CRITICAL VALUE YES; FIO2 21 %
[2016-11-15 11:46] LABS: DRAW SITE LT BRACHIAL; NUMBER OF ARTERIAL PUNCTURES 1; STAT NO
[2016-11-15] MEDS ORDERED: oxyCODONE/ACETAMINOPHEN 5 MG/325 MG TAB PO PRN (12:15)
[2016-11-15] MEDS: oxyCODONE/ACETAMINOPHEN 5 MG/325 MG TAB PO PRN ×2 (13:15→21:51)
[2016-11-15 14:13] LABS: BICARBONATE 17.2 MEQ/L (21.0-32.0)
[2016-11-15 14:20] LABS: POTASSIUM 3.9 MEQ/L (3.5-5.1)
[2016-11-15 14:36] LABS: CALCIUM-PROTEIN CORRECTED 7.4 MG/DL (8.5-10.1)
--- NOTE | 2016-11-15 14:49 | MB ---
cc: ISAIAS DAMON DATE OF CONSULTATION: 11/15/2016. REASON FOR CONSULTATION: Patient with a history of rectal cancer admitted to the hospital with multiple cavitary lung lesions. PATIENT PROFILE: The patient is a 55-year-old male. He is single. He lives with his mother. He has no children. 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 He had smoked a pack of cigarettes per day but he is not smoking presently. Alcohol intake has been minimal in the past. HISTORY OF PRESENT ILLNESS: The patient is a 45-year-old male who had a history of rectal bleeding and pain in the rectum. He was seen by Dr. Galvan, who is a colorectal surgeon, and on examination had a mass. He underwent limited colonoscopy with biopsies on July 23, 2016 and he was found to have a large rectal mass with ulceration, friability and partial obstruction. The biopsy revealed invasive moderately differentiated adenocarcinoma. He had imaging studies on 07/22/2016, which included a CT of the thorax which was unremarkable and specifically no evidence of metastatic disease. On 07/22/2016, he had a CT scan of the abdomen and pelvis with contrast and this was unremarkable except for mild hepatic steatosis. The patient received preoperative radiation therapy administered by Dr. Santana completed on 11/10/2016. He took what I believe is Xeloda. He was not able to complete the last two weeks of Xeloda due to the fact that he felt ill. He was not always consistent with follow up. He was having pain in the pelvic area when he was receiving radiation. Between two and three weeks ago, he injected himself on three occasions with IV Dilaudid. During the past week, he has felt increasingly painful. He has had severe pain in the chest when he takes a deep breath. He has recently developed fevers and went to the emergency room. He was found to be febrile. Temperature on 11/15 was 101.4. Imaging studies include on 11/15/[address] scan of the thorax showing multiple cavitary and solid nodules throughout the lungs bilaterally. These are new when compared to the study of Jul, 2016 and most of these are peripheral. A renal ultrasound is unremarkable. CBC and platelet count from 11/15: Hemoglobin 9.8, white count 9200 and platelets are 55,000. Other laboratory tests include: BUN of 44, creatinine of 2.29, potassium 2.8, bilirubin is 1.9, AST 31, ALT is 26, alkaline phosphatase is 141. The most recent CEA is 1.4 on 08/26/2016. PAST SURGICAL HISTORY: Rectal biopsy 07/24/2016 revealing adenocarcinoma. 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 MEDICATIONS PRIOR TO ADMISSION: Oxycodone 5/325 one every four hours PRN pain. ALLERGIES: NO KNOWN ALLERGIES. REVIEW OF SYSTEMS: No change in vision or hearing. He has severe pain in the chest especially when he takes a deep breath. He has mild abdominal pain. He has slight soreness around the rectal area but it is not extreme. He has urinary frequency. He does not have bone pain, although he has back pain which he attributes to the lungs. Neurologic: No focal weakness. PHYSICAL EXAMINATION: GENERAL: The physical exam reveals a gentleman who is in distress. He is in pain. VITAL SIGNS: Blood pressure 150/70, respiratory rate 18, pulse 130, temperature 98. HEAD, EYES, EARS, NOSE, THROAT: Head is normocephalic. The sclerae and conjunctivae are normal. Oropharynx unremarkable. LYMPHATIC: There is no cervical, supraclavicular, axillary or inguinal adenopathy. HEART: Regular rhythm. No murmur. LUNGS: Clear. No wheezes, rales or rhonchi. ABDOMEN: Abdomen soft. Slight diffuse tenderness. EXTREMITIES: No edema. MUSCULOSKELETAL: No bone pain. NEUROLOGIC: No focal weakness. ADDITIONAL INFORMATION: A bladder scan was done and there was no evidence of urinary retention. ASSESSMENT and PLAN The patient is a 45-year-old male who has an adenocarcinoma of the rectum without metastatic disease who completed radiation therapy and limited chemotherapy 1 week ago. He now presents with fever, diffuse peripheral cavitary lung lesions and a hx of injecting himself with IV Dilaudid. The time course and presentation are most consistent with bacterial endocarditis and not metastatic rectal cancer to the lungs. I will order a repeat CEA which has been normal in the past. Hopefully the infection will resolve in 4-6 weeks and he will then be able to go on to surgery. He has significant chest pain. I have adjusted his pain medicines MD CASANDRA Willard/MIGUEL /1:03 PM /2:34 PM KOREY
--- NOTE | 2016-11-15 15:02 | ECHRPT ---
Indication: R/o vegetation CONCLUSIONS The left ventricular systolic function is low normal with an estimated ejection fraction in the rang e of 50- 55%. Normal left ventricular size. Wall thickness is normal. No regional wall motion abnormalities are present. Findings consistent with vegetation on the anterior leaflet of the tricuspid valve. There is severe tricuspid regurgitation. The estimated pulmonary arterial pressure is 45 mmHg. The pulmonary valve is not well visualized. BP: 129 / 66 HR: 87 Rhythm: Other MEASUREMENTS (Male / Female) Normal Values Technical Quality:Good 2D ECHO LV Diastolic Diameter PLAX 3.8 cm 4.2 - 5.9 / 3.9 - 5.3 cm LV Systolic Diameter PLAX 3.1 cm IVS Diastolic Thickness 1.2 cm 0.6 - 1.0 / 0.6 - 0.9 cm LVPW Diastolic Thickness 1.2 cm 0.6 - 1.0 / 0.6 - 0.9 cm LV Relative Wall Thickness 0.6 RV Internal Dim ED PLAX 2.5 cm LVOT Diameter 2.0 cm LA Systolic Diameter LX 3.6 cm 3.0 - 4.0 / 2.7 - 3.8 cm LV Ejection Fraction MOD 4C 54.4 % LV Cardiac Index MOD 4C 2364.7 cm/minm LV Ejection Fraction 4C AL 55.6 % LV Cardiac Index 4C AL 2481.8 cm/minm M-MODE Aortic Root Diameter MM 2.3 cm AV Cusp Separation MM 1.6 cm DOPPLER AV Peak Velocity 133.0 cm/s AV Peak Gradient 7.1 mmHg LVOT Peak Velocity 123.0 cm/s LVOT Peak Gradient 6.1 mmHg AV Area Cont Eq pk 2.9 cm TR Peak Velocity 296.0 cm/s TR Peak Gradient 35.0 mmHg PV Peak Velocity 119.0 cm/s PV Peak Gradient 5.7 mmHg FINDINGS LEFT VENTRICLE The left ventricular systolic function is low normal with an estimated ejection fraction in the rang e of 50- 55%. Normal left ventricular size. Wall thickness is normal. No regional wall motion abnormalities are present. RIGHT VENTRICLE Normal right ventricular size and systolic function. LEFT ATRIUM The left atrial size is normal. RIGHT ATRIUM The right atrial size is normal. ATRIAL SEPTUM Normal atrial septal thickness without atrial level shunting by limited color doppler interrogation. AORTA The aortic root and proximal ascending aorta are normal in size on limited imaging. MITRAL VALVE Structurally normal mitral valve. No mitral valve stenosis or regurgitation. AORTIC VALVE Trileaflet aortic valve. No aortic valve stenosis or regurgitation. TRICUSPID VALVE Findings consistent with vegetation on the anterior leaflet of the tricuspid valve. There is severe tricuspid regurgitation. The estimated pulmonary arterial pressure is 45 mmHg. PULMONARY VALVE The pulmonary valve is not well visualized. VESSELS The inferior vena cava is normal in size. PERICARDIUM No pericardial effusion. Darrell Farnsworth MD (Electronically Signed) Final Date:15 November 2016 15:01
[2016-11-15] MEDS: HYDROmorphone HCL PF 1 MG/ML VIAL IV PUSH PRN ×3 (15:15→23:55)
[2016-11-15] MEDS: PIPERACIL-TAZO 2.25 GM PREMIX 50 ML IV SCH ×3 (17:00→23:58)
[2016-11-15] MEDS: ONDANSETRON HCL 4 MG/2 ML VIAL IV PUSH PRN (20:37)
[2016-11-16] VITALS (49 sets, daily range): BP systolic 97–151; BP diastolic 52–85; PULSE 118–145; RESP 19–45; TEMP 97.7–100; O2SAT 80–100
[2016-11-16] MEDS: oxyCODONE/ACETAMINOPHEN 5 MG/325 MG TAB PO PRN ×5 (01:58→21:40)
[2016-11-16] MEDS: RESP: ALBUTEROL 2.5 MG/IPRATROPIUM 0.5 MG NEB (SCH) INH ×4 (03:33→19:42)
[2016-11-16] MEDS: HYDROmorphone HCL PF 1 MG/ML VIAL IV PUSH PRN ×6 (03:40→21:41)
[2016-11-16] MEDS: CHLORHEXIDINE GLUCONATE 2 % 1 PACK (2 CLOTHS) TOP SCH (04:00)
[2016-11-16 04:15] LABS: AUTOMATED NEUTROPHIL # 7.1 TH/MM3 (1.8-7.7); BASOPHIL % 0.1 % (0.0-2.0); EOSINOPHIL % 0.6 % (0.0-4.0); HEMATOCRIT 25.4 % (39.0-51.0); LYMPH % 1.6 % (9.0-44.0); LYMPHOCYTE # 0.1 TH/MM3 (1.0-4.8); MEAN CELL VOLUME 76.5 FL (80.0-100.0); MEAN CORPUSCULAR HEMOGLOBIN 26.3 PG (27.0-34.0); MEAN CORPUSCULAR HGB CONC 34.4 % (32.0-36.0); NEUT % 90.7 % (16.0-70.0); PLATELET COUNT 37 TH/MM3 (150-450); RED BLOOD COUNT 3.32 MIL/MM3 (4.50-5.90); RED CELL DISTRIBUTION WIDTH 15.8 % (11.6-17.2); WHITE BLOOD COUNT 7.8 TH/MM3 (4.0-11.0)
[2016-11-16 04:20] LABS: HEMO FLAGS AUTO DIFF
[2016-11-16 04:43] LABS: BICARBONATE 20.8 MEQ/L (21.0-32.0); CALCIUM-PROTEIN CORRECTED 8.2 MG/DL (8.5-10.1); POTASSIUM 3.6 MEQ/L (3.5-5.1); TOTAL BILIRUBIN ADULT 2.2 MG/DL (0.2-1.0)
[2016-11-16 04:51] LABS: BANDS 9 % (0-6); NEUTROPHIL # MANUAL DIFF 7.7 TH/MM3 (1.8-7.7); POLYS (SEG NEUTROPHILS) 90 % (16-70); WBC DIFF SAMPLE 100
[2016-11-16 04:52] LABS: OVALOCYTES 1+ (NORMAL); PLATELET ESTIMATE SMEAR LOW (NORMAL); PLATELET MORPHOLOGY NORMAL (NORMAL); SCAN/DIFF FINAL DIFF MANUAL
[2016-11-16] MEDS: INSULIN NovoLIN REGULAR SUPPLEMENTAL SCALE SQ SCH ×4 (05:00→23:00)
[2016-11-16] MEDS: PIPERACIL-TAZO 2.25 GM PREMIX 50 ML IV SCH ×2 (06:43→11:37)
--- NOTE | 2016-11-16 07:46 | HHI.CCPN ---
Subjective Remarks/Hospital Course The patient is a 45-year-old male with past medical history of colon cancer on radiation treatment last session on Wednesday and has been on radiation for the past 2-3 months being followed by Dr. Harrell, his oncologist, and Dr. Galvan. He presented to [facility] emergency department with a couple of days history of shortness of breath, pleuritic chest pain with deep inspiration , dry cough and feeling nauseous. The patient denies any exposure to sick contacts. In addition, he denies any prior history of pneumonia or flu. He was found to have a temperature of 101.4 orally in the ER. In addition hewas tachycardiac with heart rate of 120s to 130s. Chest x-ray in the ER showed new bilateral mild air space opacities. The patient subsequently had CT scan of the chest which showed multiple new solid and cavitary irregular nodules seen throughout the lungs bilaterally, and small right-sided pleural effusion. His laboratory data is significant for renal failure with a creatinine level of 2.29 and hypokalemia with a potassium level of 2.8. His lactic acid level measured at 1.2. The patient also is thrombocytopenic with a platelet count of 55, however, his INR is 1.2. In the ED he was given three liters of Crystalloid in addition to cefepime, azithromycin, Tylenol and DuoNeb. When seen in the ER he was on room air oxygen with saturation 96%. However, tachycardiac with heart rate of 123 and blood pressure 154/75. He denies any vomiting, abdominal pain. 11/16 No events overnight. Patient is lying in bed in NAD. Afebrile. renal function is improving with Cr: 1.54 from 2.0. Echo from yesterday showed vegetation on TV, EF 50-55%. Objective Vital Signs Date Time Temp Pulse Resp B/P (MAP) Pulse Ox O2 Delivery O2 Flow Rate FiO2 11/16/16 06:45 135 38 98 11/16/16 06:00 127/82 (97) 11/16/16 04:00 98.2 11/16/16 00:30 Nasal Cannula 4.00 Intake and Output 11/16/16 11/16/16 11/17/16 08:00 16:00 00:00 Intake Total 1828 ml Output Total 450 ml Balance 1378 ml Result Diagram: 11/16/16 0400 11/16/16 0400 Other Results Laboratory Tests Test 11/15/16 08:20 11/15/16 11:00 11/15/16 11:38 11/15/16 13:00 Urine Color YELLOW Urine Turbidity CLOUDY Urine pH 6.0 Urine Specific [place] 1.015 Urine Protein 30 mg/dL Urine Glucose (UA) NEG mg/dL Urine Ketones NEG mg/dL Urine Occult Blood SMALL Urine Nitrite NEG Urine Bilirubin NEG Urine Urobilinogen 4.0 MG/DL Urine Leukocyte Esterase LARGE Urine RBC 5 /hpf Urine WBC 113 /hpf Urine WBC Clumps FEW Urine Squamous Epithelial Cells <1 /hpf Urine Amorphous Sediment MOD Urine Bacteria FEW /hpf Urine Mucus FEW /lpf Microscopic Urinalysis Comment CATH-CULTURE IND Nasal Screen MRSA (PCR) MRSA DETECTED Blood Gas Puncture Site LT BRACHIAL Blood Gas Patient Temperature 98.6 Blood Gas HCO3 18 mmol/L Blood Gas Base Excess -5.6 mmol/L Blood Gas Oxygen Saturation 92 % Arterial Blood pH 7.44 Arterial Blood Partial Pressure CO2 26 mmHg Arterial Blood Partial Pressure O2 77 mmHg Arterial Blood Oxygen Content 12.4 Vol % Arterial Blood Carboxyhemoglobin 1.7 % Arterial Blood Methemoglobin 1.1 % Blood Gas Hemoglobin 9.5 G/DL Blood Gas Inspired Oxygen 21 % Urine Opiates Screen POS Urine Barbiturates Screen NEG Urine Amphetamines Screen NEG Urine Benzodiazepines Screen NEG Urine Cocaine Screen POS Urine Cannabinoids Screen NEG Test 11/15/16 13:17 11/15/16 19:41 11/16/16 04:00 Blood Urea Nitrogen 40 MG/DL 30 MG/DL Creatinine 2.04 MG/DL 1.54 MG/DL Random Glucose 98 MG/DL 100 MG/DL Total Protein 5.9 GM/DL 5.1 GM/DL Calcium Level 6.8 MG/DL 7.1 MG/DL Sodium Level 133 MEQ/L 140 MEQ/L Potassium Level 3.9 MEQ/L 3.6 MEQ/L Chloride Level 103 MEQ/L 110 MEQ/L Carbon Dioxide Level 17.2 MEQ/L 20.8 MEQ/L Anion Gap 13 MEQ/L 9 MEQ/L Estimat Glomerular Filtration Rate 36 ML/MIN 50 ML/MIN Protein Corrected Calcium 7.4 MG/DL 8.2 MG/DL Fibrinogen 413 mg/dL White Blood Count 7.8 TH/MM3 Red Blood Count 3.32 MIL/MM3 Hemoglobin 8.7 GM/DL Hematocrit 25.4 % Mean Corpuscular Volume 76.5 FL Mean Corpuscular Hemoglobin 26.3 PG Mean Corpuscular Hemoglobin Concent 34.4 % Red Cell Distribution Width 15.8 % Platelet Count 37 TH/MM3 Mean Platelet Volume 9.1 FL Neutrophils (%) (Auto) 90.7 % Lymphocytes (%) (Auto) 1.6 % Monocytes (%) (Auto) 7.0 % Eosinophils (%) (Auto) 0.6 % Basophils (%) (Auto) 0.1 % Neutrophils # (Auto) 7.1 TH/MM3 Lymphocytes # (Auto) 0.1 TH/MM3 Monocytes # (Auto) 0.5 TH/MM3 Eosinophils # (Auto) 0.0 TH/MM3 Basophils # (Auto) 0.0 TH/MM3 CBC Comment AUTO DIFF Differential Total Cells Counted 100 Neutrophils % (Manual) 90 % Band Neutrophils % 9 % Monocytes % 1 % Neutrophils # (Manual) 7.7 TH/MM3 Differential Comment FINAL DIFF MANUAL Platelet Estimate LOW Platelet Morphology Comment NORMAL Ovalocytes 1+ Albumin 1.5 GM/DL Alkaline Phosphatase 97 U/L Aspartate Amino Transf (AST/SGOT) 25 U/L Alanine Aminotransferase (ALT/SGPT) 19 U/L Total Bilirubin 2.2 MG/DL Carcinoembryonic Antigen 1.7 NG/ML Imaging Last Impressions Chest X-Ray 11/15/16 0724 Signed Impressions: Service Date/Time: Tuesday, November 15, 2016 07:37 - CONCLUSION: New bilateral mild basilar air space opacities which may represent subsegmental atelectasis versus evolving airspace consolidation. Katie Nevarez MD Renal Ultrasound 11/15/16 0000 Signed Impressions: Service Date/Time: Tuesday, November 15, 2016 10:26 - CONCLUSION: Normal examination. Katie Nevarez MD Chest CT 11/15/16 0000 Signed Impressions: Service Date/Time: Tuesday, November 15, 2016 09:10 - CONCLUSION: Multiple new solid and cavitary irregular nodules seen throughout the lungs bilaterally. These may represent foci of metastatic disease, however, given that these are new as compared to the prior exam of July 2016 concern is for possible septic emboli given the cavitary lesions. Small right-sided pleural effusion also favors possible infectious source. Katie Nevarez MD Objective Remarks GENERAL: PAtient is lying in bed in NAD SKIN: Warm and dry. HEAD: Normocephalic. EYES: No scleral icterus. No injection or drainage. NECK: Supple, trachea midline. No JVD or lymphadenopathy. CARDIOVASCULAR: Tachycardic without murmurs, gallops, or rubs. RESPIRATORY: Breath sounds equal bilaterally. No accessory muscle use. GASTROINTESTINAL: Abdomen soft, non-tender, nondistended. MUSCULOSKELETAL: No cyanosis, or edema. Neuro: Awake and alert. A/P Assessment and Plan 1. Respiratory insufficiency. Solid and cavitary nodules bilaterally 2nd septic emboli. 2. Infective endocarditis 3. Urinary tract infection. 4. Acute renal failure. 5. Thrombocytopenia likely 2nd sepsis 6. Anemia 7. Colon cancer on radiation treatment. Plan Neuro: Monitor neuro status and avoid any sedatives. UDS: + Cocaine, Opiates Pulm: Oxygen p.r.n. to maintain sats above 92%. Bronchodilator CT brain showed cavitary and irregular nodules throughout the lungs bilaterally. CV: Place on Cardizem 60mg Q6-Monitor HR and BP and maintain MAP >65 mmHg. Echo showed EF 50-55%, +Vegetations on TV : Monitor renal function I&O and avoid nephrotoxins. Renal function Cr: 1.54 from 2.0. IVF NS@75ml/hr GI: On Protonix 40 milligrams IV daily for GI prophylaxis. Start PO diet ID: Continue abx per ID ( Zosyn and vancomycin) monitor for signs of infections( Fever, WBC) Nasal aspirate negative for influenzae. Follow up on blood and urine culture. Strep pneumonia and Legionella urinary Ag pending Echo showed vegetations on TV. Heme: Monitor CBC ,oncology is following- Dr. Santos Endo: SSI with Accu-Cheks for glycemic control. GI prophylaxis with Protonix 40 milligrams daily and DVT prophylaxis with SCDs. Not on chemical anticoagulation prophylaxis due to thrombocytopenia. Level 3 Efrain Ortiz MD Nov 16, 2016 07:46
[2016-11-16] MEDS ORDERED: AZITHROMYCIN INJ 500 MG in SODIUM CHLOR 0.9% 250 ML INJ 250 ML IV SCH (08:00)
[2016-11-16] MEDS: DOCUSATE SODIUM 50 MG/SENNA 8.6 MG TAB PO SCH ×2 (08:23→21:00)
[2016-11-16] MEDS: PANTOPRAZOLE SODIUM 40 MG VIAL IV SCH (08:23)
[2016-11-16] MEDS: DILTIAZEM HCL 60 MG TAB PO SCH ×4 (08:30→23:31)
[2016-11-16] MEDS: SODIUM CHLOR 0.9% 1000 ML INJ 1,000 ML IV SCH (11:37)
[2016-11-16] MEDS: VANCOMYCIN INJ 1,250 MG in SODIUM CHLOR 0.9% 250 ML INJ 250 ML IV SCH (14:50)
--- NOTE | 2016-11-16 15:32 | EKG ---
Date Performed: 11/15/2016 Time Performed: 07:23:29 PTAGE: 45 years EKG: SINUS TACHYCARDIA When compared to previous tracing, sinus rate has increased. ABNORMAL RHY THM ECG PREVIOUS TRACING : 11/13/2016 06.45 DOCTOR: Puma Hooper Interpretating Date/Time 11/16/2016 15:31:23
--- NOTE | 2016-11-16 18:29 | PD.ONC.PN ---
Subjective Subjective Remarks August 31, 2016 was only dose of Injectafer for iron deficiency Last visit September 03, 2016, before completion of Chemo XRT tx for rectal cancer. His fu w/ [employer] in 2 weeks to monitor end of tx toxicity- he missed. [facility] September 23- no show Documented numerous calls made by genetic counselor without pt's call back. Radiation oncology notes that pt completed all treatment but controlled his own schedule and missed many days. 4,500cCy tx and 540cGY 05/22 Admits to doing something he should not. He took his oral Dilaudid and "made it liquid" for intravenous use, "it didn't work" He seems contrite in never doing that again. Would like to keep this event from his mother. Feels like a "million bucks" after the abx. Objective Data Date Time Temp Pulse Resp B/P (MAP) Pulse Ox O2 Delivery O2 Flow Rate FiO2 11/16/16 18:00 124 11/16/16 18:00 123 35 126/64 (84) 96 11/16/16 17:00 118 29 114/67 (83) 96 11/16/16 16:00 124 11/16/16 16:00 99.9 124 19 115/65 (82) 94 11/16/16 15:00 128 34 133/81 (98) 93 11/16/16 14:00 120 33 103/61 (75) 95 11/16/16 14:00 120 11/16/16 13:00 127 38 130/77 (94) 95 11/16/16 12:00 127 11/16/16 12:00 98.6 129 42 151/81 (104) 92 11/16/16 11:16 93 Nasal Cannula 4.00 11/16/16 11:00 125 33 115/70 (85) 90 11/16/16 10:00 129 28 125/66 (85) 93 11/16/16 10:00 129 11/16/16 09:00 130 39 121/71 (88) 94 11/16/16 08:00 100.0 129 39 114/75 (88) 97 11/16/16 08:00 129 11/16/16 07:00 133 28 121/71 (88) 100 11/16/16 06:45 135 38 98 11/16/16 06:30 135 45 98 11/16/16 06:15 130 40 97 11/16/16 06:00 134 29 127/82 (97) 95 11/16/16 06:00 134 11/16/16 05:45 126 11/16/16 05:45 126 35 99 11/16/16 05:30 130 11/16/16 05:30 130 41 98 11/16/16 05:15 138 11/16/16 05:15 138 43 95 11/16/16 05:04 135 11/16/16 05:04 135 43 125/76 (92) 95 11/16/16 05:03 138 39 127/80 (96) 94 11/16/16 05:03 138 11/16/16 05:00 145 11/16/16 05:00 145 41 11/16/16 04:45 145 35 11/16/16 04:45 145 11/16/16 04:30 126 33 96 11/16/16 04:30 126 11/16/16 04:15 129 33 95 11/16/16 04:15 129 11/16/16 04:00 130 11/16/16 04:00 130 27 107/67 (80) 95 11/16/16 04:00 98.2 11/16/16 03:45 128 37 98 11/16/16 03:45 128 11/16/16 03:30 127 35 92 11/16/16 03:30 127 11/16/16 03:15 128 11/16/16 03:15 128 34 93 11/16/16 03:00 125 31 97/52 (67) 93 11/16/16 03:00 125 11/16/16 02:45 127 11/16/16 02:45 127 31 94 11/16/16 02:30 133 35 94 11/16/16 02:15 138 43 94 11/16/16 02:00 140 42 142/84 (103) 89 11/16/16 01:45 128 42 95 11/16/16 01:30 137 44 89 11/16/16 01:30 137 11/16/16 01:15 130 22 93 11/16/16 01:15 130 11/16/16 01:00 129 11/16/16 01:00 129 39 115/61 (79) 95 11/16/16 00:45 131 11/16/16 00:45 131 33 96 8/28/17 00:30 144 11/16/16 00:30 144 45 80 11/16/16 00:30 95 Nasal Cannula 4.00 11/16/16 00:15 140 11/16/16 00:15 140 43 85 11/16/16 00:00 138 45 119/76 (90) 86 11/16/16 00:00 138 11/16/16 00:00 98.4 11/15/16 23:45 146 45 84 11/15/16 23:45 146 11/15/16 23:30 140 45 87 11/15/16 23:30 140 11/15/16 23:15 141 44 89 11/15/16 23:15 141 11/15/16 23:00 135 11/15/16 23:00 135 39 114/63 (80) 91 11/15/16 22:45 135 36 92 11/15/16 22:45 135 11/15/16 22:30 135 40 93 11/15/16 22:30 135 11/15/16 22:15 135 40 96 11/15/16 22:15 135 11/15/16 22:00 144 49 136/79 (98) 94 11/15/16 22:00 144 11/15/16 21:45 137 11/15/16 21:45 137 40 96 11/15/16 21:30 138 36 96 11/15/16 21:30 138 11/15/16 21:15 140 11/15/16 21:15 140 37 96 11/15/16 21:04 97 Nasal Cannula 2.00 11/15/16 21:00 135 50 132/80 (97) 98 11/15/16 21:00 135 11/15/16 20:45 144 43 93 11/15/16 20:30 137 51 94 11/15/16 20:15 138 34 94 11/15/16 20:00 137 11/15/16 20:00 137 48 132/87 (102) 96 11/15/16 20:00 98.6 22 11/15/16 19:45 135 34 96 11/15/16 19:30 138 34 98 11/15/16 19:15 137 48 95 11/15/16 19:00 132 24 127/87 (100) 96 11/16/16 11/16/16 11/16/16 07:00 15:00 23:00 Intake Total 1828 ml 110 ml 3452.5 ml Output Total 450 ml 1100 ml Balance 1378 ml 110 ml 2352.5 ml Result Diagram: 11/16/16 0400 11/16/16 0400 Laboratory Results Laboratory Tests Test 11/15/16 19:41 11/16/16 04:00 11/16/16 11:48 11/16/16 12:00 Fibrinogen 413 mg/dL White Blood Count 7.8 TH/MM3 Red Blood Count 3.32 MIL/MM3 Hemoglobin 8.7 GM/DL Hematocrit 25.4 % Mean Corpuscular Volume 76.5 FL Mean Corpuscular Hemoglobin 26.3 PG Mean Corpuscular Hemoglobin Concent 34.4 % Red Cell Distribution Width 15.8 % Platelet Count 37 TH/MM3 Mean Platelet Volume 9.1 FL Neutrophils (%) (Auto) 90.7 % Lymphocytes (%) (Auto) 1.6 % Monocytes (%) (Auto) 7.0 % Eosinophils (%) (Auto) 0.6 % Basophils (%) (Auto) 0.1 % Neutrophils # (Auto) 7.1 TH/MM3 Lymphocytes # (Auto) 0.1 TH/MM3 Monocytes # (Auto) 0.5 TH/MM3 Eosinophils # (Auto) 0.0 TH/MM3 Basophils # (Auto) 0.0 TH/MM3 CBC Comment AUTO DIFF Differential Total Cells Counted 100 Neutrophils % (Manual) 90 % Band Neutrophils % 9 % Monocytes % 1 % Neutrophils # (Manual) 7.7 TH/MM3 Differential Comment FINAL DIFF MANUAL Platelet Estimate LOW Platelet Morphology Comment NORMAL Ovalocytes 1+ Blood Urea Nitrogen 30 MG/DL Creatinine 1.54 MG/DL Random Glucose 100 MG/DL Total Protein 5.1 GM/DL Albumin 1.5 GM/DL Calcium Level 7.1 MG/DL Alkaline Phosphatase 97 U/L Aspartate Amino Transf (AST/SGOT) 25 U/L Alanine Aminotransferase (ALT/SGPT) 19 U/L Total Bilirubin 2.2 MG/DL Sodium Level 140 MEQ/L Potassium Level 3.6 MEQ/L Chloride Level 110 MEQ/L Carbon Dioxide Level 20.8 MEQ/L Anion Gap 9 MEQ/L Estimat Glomerular Filtration Rate 50 ML/MIN Protein Corrected Calcium 8.2 MG/DL Carcinoembryonic Antigen 1.7 NG/ML Random Vancomycin Level 4.5 COMMENT Hepatitis A IgM Antibody NEGATIVE Hepatitis B Surface Antigen NEGATIVE Hepatitis B Core IgM Antibody NEGATIVE Hepatitis C Antibody REACTIVE HIV (1&2) Antibody NEGATIVE Culture Results Microbiology Date/Time Source Procedure Growth Status 11/16/16 14:35 Blood Peripheral Aerobic Blood Culture Pending Received 11/16/16 14:35 Blood Peripheral Anaerobic Blood Culture Pending Received 11/16/16 14:30 Blood Peripheral Aerobic Blood Culture Pending Received 11/16/16 14:30 Blood Peripheral Anaerobic Blood Culture Pending Received 11/15/16 07:35 Blood Peripheral Aerobic Blood Culture - Preliminary Gram Positive Cocci Resulted 11/15/16 07:35 Anaerobic Blood Culture - Preliminary Gram Positive Cocci Resulted 11/15/16 07:30 Blood Peripheral Aerobic Blood Culture - Preliminary S. Aureus Mrsa Resulted 11/15/16 07:30 Anaerobic Blood Culture - Preliminary Gram Positive Cocci Resulted 11/15/16 07:30 Nasal Aspirate Influenza Types A,B Antigen (MAHOGANY) - Final NEGATIVE FOR FLU A AND B ANTIGEN.... Complete 11/15/16 13:00 Urine Catheterized Urine Legionella Antigen - Final PRESUMPTIVE NEGATIVE FOR LEGIONELLA P... Complete 11/15/16 13:00 Urine Catheterized Urine Streptococcus pneumoniae Antigen (M - Final PRESUMPTIVE NEGATIVE FOR STREPTOCOCCU... Complete 11/15/16 08:20 Urine Catheterized Urine Urine Culture - Preliminary S. Aureus Mrsa Resulted Administered Medications Medications (Trade) Dose Ordered Sig/Osvaldo Route PRN Reason Start Time Stop Time Status Last Admin Dose Admin Pantoprazole Sodium (Protonix Inj) 40 mg DAILY IV 11/15/16 10:00 11/16/16 08:23 Albuterol/ Ipratropium (Duoneb Neb) 1 ampule Q6HR NEB INH 11/15/16 10:00 11/16/16 03:33 Sodium Chloride 1,000 ml @ 75 mls/hr [id number] IV 11/15/16 09:45 11/16/16 11:37 Hydromorphone HCl (Dilaudid Pf Inj) 1 mg Q3H PRN IV PUSH PAIN 1 TO 10 AND/OR AGITATION 11/15/16 13:00 11/16/16 12:49 Oxycodone/ Acetaminophen (Percocet 5-325 Mg) 1 tab Q4H PRN PO PAIN 1-10 11/15/16 13:00 11/16/16 16:22 Ondansetron HCl (Zofran Inj) 4 mg Q8H PRN IV PUSH NAUSEA OR VOMITING 11/15/16 13:15 11/15/16 20:37 Diltiazem HCl (Cardizem) 60 mg Q6HR PO 11/16/16 08:15 11/16/16 18:09 Vancomycin HCl 1250 mg/Sodium Chloride 262.5 ml @ 262.5 mls/ hr Q18H IV 11/16/16 14:00 11/16/16 14:50 Objective Remarks GENERAL: Well-nourished, anxious appearing man, well-developed patient. SKIN: Warm and dry. HEAD: Normocephalic. EYES: No scleral icterus. No injection or drainage. NECK: Supple, trachea midline. No JVD or lymphadenopathy. LYMPHATIC: No adenopathy. CARDIOVASCULAR: Tachycardic. RESPIRATORY: Breath sounds equal bilaterally. Mildly SOB with talking. GASTROINTESTINAL: Abdomen soft, non-tender, nondistended. EXTREMITIES: No cyanosis, or edema. MUSCULOSKELETAL: Adequate muscle tone. NEUROLOGICAL: No obvious focal deficit. Awake, alert, and oriented x3. PSYCHIATRIC: Anxious. Assessment/Plan Problem List: (1) Rectal cancer ICD Codes: C20 - Malignant neoplasm of rectum Status: Acute Plan: Completed XRT in his time, unlikely with Xeloda. Lost to follow up since August. State he had alot of personal problem he could not complete his therapy as scheduled. Treatment less than ideal which is concerning as the efficacy of treatment and cure is greatly diminished. Reports Dr. Galvan happy with his response but sounds like he was residual disease evident. He will need definitive surgery after infection resolved. No nodules present at time of dx, nodules appear with clinical picture of bacterial endocarditis. No additional tx from Oncology now. 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 ID following. Abx continue, pt very optimistic/unrealistic that he will go home on abx in a few days. Advised that he is still critically ill state clearly he does not want to be in hospital. Discussed the importance of detox to never engage in this activity again as important aspect of treatment. Do not want help from mother- he wants to keep his IVDA from her. Assessment 45 y/o man with localized rectal cancer, less than ideal treatment for curative intent due to pt's poor compliance and personal problems. Course complicated by MRSA bacteremia from IVDA. Plan 1. ABx per ID 2. Restaging when DC 3. FU w/Dr. Galvan for definitive resection. Vielka Harrell MD Nov 16, 2016 18:29
[2016-11-16] MEDS: PIPERACIL-TAZO 3.375 GM PREMIX 50 ML IV SCH (21:39)
[2016-11-17] VITALS (28 sets, daily range): BP systolic 100–155; BP diastolic 56–98; PULSE 112–125; RESP 21–44; TEMP 97.9–100; O2SAT 80–99
[2016-11-17] MEDS: HYDROmorphone HCL PF 1 MG/ML VIAL IV PUSH PRN ×6 (01:30→20:51)
[2016-11-17] MEDS: oxyCODONE/ACETAMINOPHEN 5 MG/325 MG TAB PO PRN ×6 (01:30→20:51)
[2016-11-17] MEDS: RESP: ALBUTEROL 2.5 MG/IPRATROPIUM 0.5 MG NEB (SCH) INH ×4 (03:51→20:45)
[2016-11-17] MEDS: CHLORHEXIDINE GLUCONATE 2 % 1 PACK (2 CLOTHS) TOP SCH (04:00)
[2016-11-17] MEDS: INSULIN NovoLIN REGULAR SUPPLEMENTAL SCALE SQ SCH ×4 (05:00→23:00)
[2016-11-17] MEDS: DILTIAZEM HCL 60 MG TAB PO SCH ×4 (05:05→23:39)
[2016-11-17] MEDS: PIPERACIL-TAZO 3.375 GM PREMIX 50 ML IV SCH (05:06)
[2016-11-17 07:39] LABS: BICARBONATE 21.5 MEQ/L (21.0-32.0); POTASSIUM 3.4 MEQ/L (3.5-5.1)
--- NOTE | 2016-11-17 07:39 | HHI.CCPN ---
Subjective Remarks/Hospital Course The patient is a 45-year-old male with past medical history of colon cancer on radiation treatment last session on Wednesday and has been on radiation for the past 2-3 months being followed by Dr. Harrell, his oncologist, and Dr. Galvan. He presented to [facility] emergency department with a couple of days history of shortness of breath, pleuritic chest pain with deep inspiration , dry cough and feeling nauseous. The patient denies any exposure to sick contacts. In addition, he denies any prior history of pneumonia or flu. He was found to have a temperature of 101.4 orally in the ER. In addition hewas tachycardiac with heart rate of 120s to 130s. Chest x-ray in the ER showed new bilateral mild air space opacities. The patient subsequently had CT scan of the chest which showed multiple new solid and cavitary irregular nodules seen throughout the lungs bilaterally, and small right-sided pleural effusion. His laboratory data is significant for renal failure with a creatinine level of 2.29 and hypokalemia with a potassium level of 2.8. His lactic acid level measured at 1.2. The patient also is thrombocytopenic with a platelet count of 55, however, his INR is 1.2. In the ED he was given three liters of Crystalloid in addition to cefepime, azithromycin, Tylenol and DuoNeb. When seen in the ER he was on room air oxygen with saturation 96%. However, tachycardiac with heart rate of 123 and blood pressure 154/75. He denies any vomiting, abdominal pain. 11/16 No events overnight. Patient is lying in bed in NAD. Afebrile. renal function is improving with Cr: 1.54 from 2.0. Echo from yesterday showed vegetation on TV, EF 50-55%. 11/17 Patient is lying in bed in NAD. Afebrile. Objective Vital Signs Date Time Temp Pulse Resp B/P (MAP) Pulse Ox O2 Delivery O2 Flow Rate FiO2 11/17/16 06:00 120 11/17/16 06:00 42 136/79 (98) 92 11/17/16 04:00 97.9 11/17/16 03:57 Nasal Cannula 6.00 Intake and Output 11/17/16 11/17/16 11/18/16 08:00 16:00 00:00 Intake Total 720 ml Output Total 850 ml Balance -130 ml Result Diagram: 11/16/16 0400 11/16/16 0400 Other Results Laboratory Tests Test 11/16/16 11:48 11/16/16 12:00 11/17/16 04:46 Hepatitis A IgM Antibody NEGATIVE Hepatitis B Surface Antigen NEGATIVE Hepatitis B Core IgM Antibody NEGATIVE Hepatitis C Antibody REACTIVE HIV (1&2) Antibody NEGATIVE Imaging Last Impressions Chest X-Ray 11/15/16 0724 Signed Impressions: Service Date/Time: Tuesday, November 15, 2016 07:37 - CONCLUSION: New bilateral mild basilar air space opacities which may represent subsegmental atelectasis versus evolving airspace consolidation. Katie Nevarez MD Renal Ultrasound 11/15/16 0000 Signed Impressions: Service Date/Time: Tuesday, November 15, 2016 10:26 - CONCLUSION: Normal examination. Katie Nevarez MD Chest CT 11/15/16 0000 Signed Impressions: Service Date/Time: Tuesday, November 15, 2016 09:10 - CONCLUSION: Multiple new solid and cavitary irregular nodules seen throughout the lungs bilaterally. These may represent foci of metastatic disease, however, given that these are new as compared to the prior exam of July 2016 concern is for possible septic emboli given the cavitary lesions. Small right-sided pleural effusion also favors possible infectious source. Katie Nevarez MD Objective Remarks GENERAL: PAtient is lying in bed in NAD SKIN: Warm and dry. HEAD: Normocephalic. EYES: No scleral icterus. No injection or drainage. NECK: Supple, trachea midline. No JVD or lymphadenopathy. CARDIOVASCULAR: Tachycardic without murmurs, gallops, or rubs. RESPIRATORY: Breath sounds equal bilaterally. No accessory muscle use. GASTROINTESTINAL: Abdomen soft, non-tender, nondistended. MUSCULOSKELETAL: No cyanosis, or edema. Neuro: Awake and alert. A/P Assessment and Plan 1. Respiratory insufficiency. Solid and cavitary nodules bilaterally 2nd septic emboli. 2. Infective endocarditis 3. Urinary tract infection. 4. Acute renal failure. 5. Thrombocytopenia likely 2nd sepsis 6. Anemia 7. Colon cancer on radiation treatment. 8 Hep C Plan Neuro: Monitor neuro status and avoid any sedatives. UDS: + Cocaine, Opiates Pulm: Continue with Oxygen maintain sats >92%. Bronchodilator, CXR today showed diffuse pulm infiltrates/ consolidation LLL. d/c IVF and diurese with Bumex 1mg x1 11/15 CT chest showed cavitary and irregular nodules throughout the lungs bilaterally. CV: On Cardizem 60mg Q6-Monitor HR and BP and maintain MAP >65 mmHg. Echo showed EF 50-55%, +Vegetations on TV, severe TR Cards eval : Monitor renal function I&O and avoid nephrotoxins. Follow up on BMP, IVF NS@75ml/hr GI: On Protonix 40 milligrams IV daily for GI prophylaxis. On PO diet ID: Continue abx per ID ( Zosyn and vancomycin) monitor for signs of infections( Fever, WBC) Nasal aspirate negative for influenzae. Strep pneumonia and Legionella urinary Ag negative Echo showed vegetations on TV. 11/15 BC: MRSA, GPC, 11/16 BC: NGTD 11/15 Urine cx: MRSA Heme: Monitor CBC ,oncology is following- Dr. Harrell Endo: SSI with Accu-Cheks for glycemic control. GI prophylaxis with Protonix 40 milligrams daily and DVT prophylaxis with SCDs. Not on chemical anticoagulation prophylaxis due to thrombocytopenia. Follow up on labs today Level 3 Efrain Ortiz MD Nov 17, 2016 07:39
[2016-11-17 08:00] LABS: MEAN CELL VOLUME 77.8 FL (80.0-100.0); MEAN CORPUSCULAR HEMOGLOBIN 25.5 PG (27.0-34.0); MEAN CORPUSCULAR HGB CONC 32.7 % (32.0-36.0); PLATELET COUNT 71 TH/MM3 (150-450); RED BLOOD COUNT 3.86 MIL/MM3 (4.50-5.90); RED CELL DISTRIBUTION WIDTH 16.1 % (11.6-17.2); WHITE BLOOD COUNT 11.9 TH/MM3 (4.0-11.0)
[2016-11-17] MEDS: VANCOMYCIN INJ 1,250 MG in SODIUM CHLOR 0.9% 250 ML INJ 250 ML IV SCH (08:01)
[2016-11-17] MEDS: DOCUSATE SODIUM 50 MG/SENNA 8.6 MG TAB PO SCH ×2 (08:01→20:52)
[2016-11-17] MEDS: PANTOPRAZOLE SODIUM 40 MG VIAL IV SCH (08:01)
[2016-11-17 08:04] LABS: HEMO FLAGS AUTO DIFF
[2016-11-17 08:53] LABS: BANDS 16 % (0-6); CORRECTED NUCLEATED RBC 1 /100 WBC (0-0); EOSINOPHILS 1 % (0-4); NEUTROPHIL # MANUAL DIFF 10.9 TH/MM3 (1.8-7.7); POLYS (SEG NEUTROPHILS) 76 % (16-70); WBC DIFF SAMPLE 100
[2016-11-17 08:54] LABS: DOHLE BODIES PRESENT (NONE SEEN); PLATELET ESTIMATE SMEAR LOW (NORMAL); PLATELET MORPHOLOGY NORMAL (NORMAL); TOXIC GRANULATION 1+ (NORMAL)
[2016-11-17 08:55] LABS: OVALOCYTES 1+ (NORMAL); SCAN/DIFF FINAL DIFF MANUAL; TOXIC VACUOLATION PRESENT (NONE SEEN)
[2016-11-17] MEDS ORDERED: POTASSIUM PHOSPHATE INJ 30 MMOL in SODIUM CHLOR 0.9% 250 ML INJ 250 ML IV PRN (10:15)
[2016-11-17] MEDS ORDERED: POTASSIUM CHLOR 20 MEQ PREMIX 100 ML IV PRN (10:15)
[2016-11-17] MEDS ORDERED: MAGNESIUM SULFATE INJ 2 GM in SODIUM CHLORIDE 0.9% INJ 96 ML IV PRN (10:15)
[2016-11-17] MEDS ORDERED: MAGNESIUM SULFATE INJ 4 GM in SODIUM CHLORIDE 0.9% INJ 92 ML IV PRN (10:15)
[2016-11-17] MEDS ORDERED: SODIUM PHOSPHATE INJ 30 MMOL in SODIUM CHLOR 0.9% 250 ML INJ 240 ML IV PRN (10:15)
[2016-11-17] MEDS ORDERED: POTASSIUM CHLOR 40 MEQ PREMIX 100 ML IV PRN ×2 (10:15)
[2016-11-17] MEDS ORDERED: POTASSIUM PHOSPHATE MONOBASIC 500 MG TAB PO/TUBE PRN (10:15)
[2016-11-17] MEDS ORDERED: BUMETANIDE INJ 1 MG/4 ML VIAL IV PUSH ONE (10:15)
[2016-11-17] MEDS ORDERED: POTASSIUM CHLORIDE 25 MEQ EFFERVESCENT TAB PO PRN (10:15)
[2016-11-17] MEDS ORDERED: MAGNESIUM OXIDE 400 MG TAB PO PRN (10:15)
[2016-11-17] MEDS ORDERED: POTASSIUM PHOSPHATE MONOBASIC 500 MG TAB PO PRN (10:15)
--- NOTE | 2016-11-17 11:10 | HHI.IDPN ---
Subjective Subjective Remarks is a 45 y/o CM with history of Rectal Cancer (Invasive moderately differentiated Adenocarcinoma with no prior lung or distant mets), and has no port or PICC line and has been receiving oral chemotherapy. Patient is followed by Dr. Vielka Harrell. Patient also sees colorectal surgeon and has undergone colonoscopy but no definite surgery. Patient also has been seeing Dr. Santana radiation oncologist and has been undergoing radiation therapy. Reportedly, the patient's last radiation therapy was on Wednesday before admission. PMHx: Patient initially presented with lower abdominal pain in January 2016. Next patient presented in April 2016 with lower abdominal pain brought in by [facility] with rectal bleeding from a [facility]. Patient was referred to Dr. Galvan colorectal surgeon. Patient was again seen in July 2016 for ongoing rectal bleeding for several months and underwent a colonoscopy which showed invasive moderately differentiated adenocarcinoma. Multiple consultants were involved and the determination was made that he did not have any lung or any other distant metastasis. Patient was eventually placed on chemotherapy and radiation therapy. Patient's mother reports that he has not been compliant with his oral chemotherapy regimen. It appears that he does comply with radiation therapy. With this background patient presents to [facility] emergency department accompanied with his mother. Patient's temperature on admission was 100 and later increased to 101.4, heart rate was 142, blood pressure 107/63 63 on presentation and currently is 157/77. Lactic acid normal. His white count on admission was 9.2 H&H 9.8/28, platelets 55, sodium 1:30, potassium 2.8, creatinine 2.29. Sepsis workup was initiated on admission and blood cultures are pending. Urine and other studies are pending. UA appears to be abnormal. Patient underwent chest x-ray which was suggestive of bilateral pneumonia. Given his history of being immune compromised patient underwent a CT of the chest which shows bilateral cavitary lesions which is suggestive of possible septic emboli. In the emergency department patient received 1 dose of cefepime as well as azithromycin and was subsequently switched to Zosyn, azithromycin and vancomycin IV. Infectious disease was consulted for the management of sepsis, pneumonia in an immune compromised patient. Overnight events reviewed. Appears more short of breath and increased work of breathing. D.w [employer] . I/O positive several liters in setting of Severe TR. Patient is being diuresed. Patient able to complete sentences and promises to not do drugs. Asked about Hep C treatment and I mentioned that endocarditis is a priority at present time. Next he needs to focus on Cancer treatment once infection clears up. He informs me he was in a relation and has children. he also informs me his Mom is his best friend. UO good. No rash No diarrhea Antibiotics Vanco IV Zosyn IV Lines Line sites with no e.o infection. Past Medical History reviewed. Allergies: Coded Allergies: No Known Allergies (Unverified , 11/15/16) Objective . Vital Signs Date Time Temp Pulse Resp B/P (MAP) Pulse Ox O2 Delivery O2 Flow Rate FiO2 11/17/16 08:30 92 Nasal Cannula 6.00 11/17/16 06:00 120 11/17/16 06:00 120 42 136/79 (98) 92 11/17/16 05:00 115 32 117/72 (87) 96 11/17/16 04:00 112 11/17/16 04:00 97.9 112 36 112/72 (85) 99 11/17/16 03:57 94 Nasal Cannula 6.00 11/17/16 03:00 114 30 109/69 (82) 95 11/17/16 02:00 124 11/17/16 02:00 124 42 131/77 (95) 93 11/17/16 01:15 124 28 134/82 (99) 91 11/17/16 01:15 124 28 134/82 (99) 91 11/17/16 01:00 121 40 129/80 (96) 93 11/17/16 01:00 121 40 129/80 (96) 93 11/17/16 00:00 98.2 122 40 126/73 (90) 93 11/17/16 00:00 122 40 126/73 (90) 93 11/17/16 00:00 122 11/16/16 23:30 125 26 93 11/16/16 23:00 130 43 140/85 (103) 90 11/16/16 22:00 137 11/16/16 22:00 137 38 131/79 (96) 87 11/16/16 21:00 135 11/16/16 21:00 135 44 134/75 (94) 87 11/16/16 20:00 97.7 129 38 129/73 (91) 92 11/16/16 20:00 129 11/16/16 19:00 128 39 141/69 (93) 95 11/16/16 19:00 128 11/16/16 18:00 124 11/16/16 18:00 123 35 126/64 (84) 96 11/16/16 17:00 118 29 114/67 (83) 96 11/16/16 16:00 124 11/16/16 16:00 99.9 124 19 115/65 (82) 94 11/16/16 15:00 128 34 133/81 (98) 93 11/16/16 14:00 120 33 103/61 (75) 95 11/16/16 14:00 120 11/16/16 13:00 127 38 130/77 (94) 95 11/16/16 12:00 127 11/16/16 12:00 98.6 129 42 151/81 (104) 92 11/16/16 11:16 93 Nasal Cannula 4.00 11/17/16 11/17/16 11/18/16 15:00 23:00 07:00 Intake Total 1332.5 ml Balance 1332.5 ml IV Total 1332.5 ml . Laboratory Tests Test 11/16/16 04:00 11/17/16 04:46 White Blood Count 7.8 TH/MM3 11.9 TH/MM3 Red Blood Count 3.32 MIL/MM3 3.86 MIL/MM3 Hemoglobin 8.7 GM/DL 9.8 GM/DL Hematocrit 25.4 % 30.0 % Mean Corpuscular Volume 76.5 FL 77.8 FL Mean Corpuscular Hemoglobin 26.3 PG 25.5 PG Mean Corpuscular Hemoglobin Concent 34.4 % 32.7 % Red Cell Distribution Width 15.8 % 16.1 % Platelet Count 37 TH/MM3 71 TH/MM3 Mean Platelet Volume 9.1 FL 8.9 FL Neutrophils (%) (Auto) 90.7 % Lymphocytes (%) (Auto) 1.6 % Monocytes (%) (Auto) 7.0 % Eosinophils (%) (Auto) 0.6 % Basophils (%) (Auto) 0.1 % Neutrophils # (Auto) 7.1 TH/MM3 Lymphocytes # (Auto) 0.1 TH/MM3 Monocytes # (Auto) 0.5 TH/MM3 Eosinophils # (Auto) 0.0 TH/MM3 Basophils # (Auto) 0.0 TH/MM3 CBC Comment AUTO DIFF AUTO DIFF Differential Total Cells Counted 100 100 Neutrophils % (Manual) 90 % 76 % Band Neutrophils % 9 % 16 % Monocytes % 1 % 4 % Neutrophils # (Manual) 7.7 TH/MM3 10.9 TH/MM3 Differential Comment FINAL DIFF MANUAL FINAL DIFF MANUAL Platelet Estimate LOW LOW Platelet Morphology Comment NORMAL NORMAL Ovalocytes 1+ 1+ Lymphocytes % 3 % Eosinophils % 1 % Nucleated Red Blood Cells 1 /100 WBC Toxic Granulation 1+ Toxic Vacuolation PRESENT Dohle Bodies PRESENT Laboratory Tests Test 11/15/16 13:17 11/16/16 04:00 11/17/16 04:46 Blood Urea Nitrogen 40 MG/DL 30 MG/DL 25 MG/DL Creatinine 2.04 MG/DL 1.54 MG/DL 1.24 MG/DL Random Glucose 98 MG/DL 100 MG/DL 85 MG/DL Total Protein 5.9 GM/DL 5.1 GM/DL Calcium Level 6.8 MG/DL 7.1 MG/DL 7.6 MG/DL Sodium Level 133 MEQ/L 140 MEQ/L 142 MEQ/L Potassium Level 3.9 MEQ/L 3.6 MEQ/L 3.4 MEQ/L Chloride Level 103 MEQ/L 110 MEQ/L 110 MEQ/L Carbon Dioxide Level 17.2 MEQ/L 20.8 MEQ/L 21.5 MEQ/L Anion Gap 13 MEQ/L 9 MEQ/L 11 MEQ/L Estimat Glomerular Filtration Rate 36 ML/MIN 50 ML/MIN 64 ML/MIN Protein Corrected Calcium 7.4 MG/DL 8.2 MG/DL Albumin 1.5 GM/DL Alkaline Phosphatase 97 U/L Aspartate Amino Transf (AST/SGOT) 25 U/L Alanine Aminotransferase (ALT/SGPT) 19 U/L Total Bilirubin 2.2 MG/DL Carcinoembryonic Antigen 1.7 NG/ML Phosphorus Level 2.8 MG/DL Microbiology Date/Time Source Procedure Growth Status 11/16/16 14:35 Blood Peripheral Aerobic Blood Culture - Preliminary Gram Positive Cocci Resulted 11/16/16 14:35 Blood Peripheral Anaerobic Blood Culture Pending Resulted 11/16/16 14:30 Blood Peripheral Aerobic Blood Culture - Preliminary Gram Positive Cocci Resulted 11/16/16 14:30 Blood Peripheral Anaerobic Blood Culture Pending Resulted 11/15/16 07:35 Blood Peripheral Aerobic Blood Culture - Preliminary Gram Positive Cocci Resulted 11/15/16 07:35 Anaerobic Blood Culture - Preliminary Gram Positive Cocci Resulted 11/15/16 07:30 Blood Peripheral Aerobic Blood Culture - Preliminary S. Aureus Mrsa Resulted 11/15/16 07:30 Anaerobic Blood Culture - Preliminary Gram Positive Cocci Resulted 11/15/16 07:30 Nasal Aspirate Influenza Types A,B Antigen (MAHOGANY) - Final NEGATIVE FOR FLU A AND B ANTIGEN.... Complete 11/15/16 13:00 Urine Catheterized Urine Legionella Antigen - Final PRESUMPTIVE NEGATIVE FOR LEGIONELLA P... Complete 11/15/16 13:00 Urine Catheterized Urine Streptococcus pneumoniae Antigen (M - Final PRESUMPTIVE NEGATIVE FOR STREPTOCOCCU... Complete 11/15/16 08:20 Urine Catheterized Urine Urine Culture - Final S. Aureus Mrsa Complete Imaging Last Impressions Chest X-Ray 11/17/16 0000 Signed Impressions: Service Date/Time: Thursday, November 17, 2016 11:07 - CONCLUSION: Development of diffuse pulmonary infiltrates with consolidation additionally in the left lower lobe. Chencho Chaparro MD Renal Ultrasound 11/15/16 0000 Signed Impressions: Service Date/Time: Tuesday, November 15, 2016 10:26 - CONCLUSION: Normal examination. Katie Nevarez MD Chest CT 11/15/16 0000 Signed Impressions: Service Date/Time: Tuesday, November 15, 2016 09:10 - CONCLUSION: Multiple new solid and cavitary irregular nodules seen throughout the lungs bilaterally. These may represent foci of metastatic disease, however, given that these are new as compared to the prior exam of July 2016 concern is for possible septic emboli given the cavitary lesions. Small right-sided pleural effusion also favors possible infectious source. Katie Nevarez MD Physical Exam GENERAL: This is a well-nourished, well-developed patient, in mild resp distress. SKIN: No rashes, ecchymoses or lesions. Cool and dry. HEAD: Atraumatic. Normocephalic. No temporal or scalp tenderness. EYES: Pupils equal round and reactive. Extraocular motions intact. No scleral icterus. No injection or drainage. ENT: Nose without bleeding, purulent drainage or septal hematoma. NECK: Trachea midline. Supple, nontender, no meningeal signs. CARDIOVASCULAR: HS audible.Systolic murmur. RESPIRATORY:Anteriorly Left basilar crackles. Posteriorly bibasilar crackles. GASTROINTESTINAL: Abdomen soft, non-tender, nondistended. MUSCULOSKELETAL: Extremities without clubbing, cyanosis, or edema. No joint tenderness, effusion, or edema noted. No calf tenderness. Negative Homans sign bilaterally. NEUROLOGICAL: Awake and alert. Grossly nonfocal. Psych cooperative, flat affect. IV line sites with no evidence of infection. Assessment & Plan Remarks Severe Sepsis (fever, tachy, low BP, bandemia, source: lung, endocarditis) TV endocarditis with severe TR. Lung lesions: septic emboli most likely. Other differentials include cancer related mets. Very less likely to be fungal or TB. Acute renal failure: prerenal, sepsis. Acute metabolic encephalopathy: sepsis, less likely to be meningitis. Hyponatremia: Infection, metabolic, meningitis Hepatitis C positive. Recommendations: DC Zosyn IV DC Vanco IV Start Daptomycin IV (Re: Worsening clinically, resp distress, back pain, neck pain ? further dissemination) Start Rifampin oral. Repeat blood cultures today. Myra.w CTS consult re: Severe TR. Will get imaging of spine if back pain and neck pain continue. Follow cultures Follow clinically. Will need CT A/P and Brain once Cr improves. Will assess in am Plan d/w patient. Case d.w and . Time in excess of 40 mins. Critical thinking decision making. mary Clinical pharmacist. Lucille Lizama MD Nov 17, 2016 11:10
--- NOTE | 2016-11-17 11:22 | RADRPT ---
EXAM DATE/TIME: 11/17/2016 11:07 [facility] COMPARISON: CHEST SINGLE AP, November 15, 2016, 7:37. INDICATIONS : Pneumonia, short of breath, chest pain MEDICAL HISTORY : Carcinoma, colon. SURGICAL HISTORY : None. ENCOUNTER: Initial ACUITY: 2 days PAIN SCORE: 8/10 LOCATION: Bilateral chest FINDINGS: Marked deterioration of pulmonary status now with a dense consolidated infiltrate in the left lower l obe retrocardiac region and diffuse patchy infiltrates more prominent in the right lung than the left . CONCLUSION: Development of diffuse pulmonary infiltrates with consolidation additionally in the left lower lobe. Chencho Chaparro MD on November 17, 2016 at 11:19 Board Certified Radiologist. This report was verified electronically.
[2016-11-17] MEDS: SODIUM CHLORIDE 0.9% IV SCH (13:02)
[2016-11-17] MEDS: DAPTOMYCIN IV SCH (13:02)
[2016-11-17] MEDS: POTASSIUM CHLOR 20 MEQ PREMIX 100 ML IV PRN ×2 (13:41→17:30)
--- NOTE | 2016-11-17 15:13 | MB ---
cc: BRENDAN BABIN M.D. DATE OF CONSULTATION: 11/17/2016 REASON FOR CONSULTATION: Evaluation of tricuspid valve endocarditis. HISTORY: Sree West is a 45-year-old man admitted to the hospital with sepsis and found to have vegetations on his tricuspid valve and blood cultures growing methicillin-resistant staph aureus. The patient has a prior history of drug use has been using he says for the past couple months. His tox screen was positive for cocaine. He has been febrile and chest x-ray showing cavitary lesions consistent with septic emboli. The 2-D echo Doppler study I reviewed and it shows classic vegetation signs with at least moderate to severe tricuspid regurgitation. The patient is in process of receiving antibiotics. He notices some pain when he takes a deep breath. He denies any previous cardiac history. PAST MEDICAL HISTORY: Notable for colon cancer for which he is followed by oncology he has had radiation therapy before. PAST SURGICAL HISTORY Unremarkable. ALLERGIES None. SOCIAL HISTORY Smoking and alcohol use. MEDICATIONS Charted FAMILY HISTORY: family history is noncontributory. PHYSICAL EXAMINATION: There is a 45-year-old man supine in bed and does not appear to be in acute distress. But he is tachycardiac and intermittently febrile. VITAL SIGNS: Vital signs: Charted. HEAD, EYES, EARS, NOSE, AND THROAT: Exam unremarkable. NECK: Neck I do not see any gross neck vein distension. CHEST: The chest shows a few crepitant rales anteriorly. CARDIAC EXAMINATION: Shows a normal S1, S2 with a loud S4. There may be a 1/6 at most systolic murmur. ABDOMEN: Soft. EXTREMITIES: Reveal no Janeway lesions or Osler's nodes: No clubbing, cyanosis or edema. Peripheral pulses are intact. RADIOLOGIC: EKG shows sinus tachycardia. No other pertinent abnormalities. LABORATORY FINDINGS: The labs are charted. Blood cultures are positive for methicillin-resistant staph aureus. Chest CT shows multiple solid and cavitary regular nodules seen throughout the lungs bilaterally, new compared to CT from July. 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 RECOMMENDATIONS The 2-D echocardiogram I think is fully diagnostic and does not require any more echocardiographic imaging studies at this time he is receiving appropriate antibiotic therapy. I will be available at this point on as-needed basis. If he gets acutely worse he may need a surgical consult but the usual strategy is to try and sterilize the infections with antibiotics. I will be available as needed. Please call if there are any questions. MD LAI Holman/ivone /2:30 PM /2:57 PM
[2016-11-17] MEDS: RIFAMPIN 150 MG CAP PO SCH (20:51)
[2016-11-18] VITALS (35 sets, daily range): BP systolic 90–139; BP diastolic 54–92; PULSE 90–127; RESP 10–42; TEMP 97.3–98.1; O2SAT 82–100
[2016-11-18] MEDS: HYDROmorphone HCL PF 1 MG/ML VIAL IV PUSH PRN (00:54)
[2016-11-18] MEDS: oxyCODONE/ACETAMINOPHEN 5 MG/325 MG TAB PO PRN (00:54)
[2016-11-18] MEDS ORDERED: methylPREDNISolone SOD SUCC 125 MG/2 ML VIAL IM ONE (01:30)
[2016-11-18] MEDS ORDERED: SUCCINYLCHOLINE CHLORIDE 200 MG/10 ML VIAL IV PUSH ONE (01:30)
[2016-11-18] MEDS ORDERED: ETOMIDATE 20 MG/10 ML VIAL ONE (01:30)
[2016-11-18] MEDS ORDERED: BUMETANIDE INJ 1 MG/4 ML VIAL IV PUSH ONE ×2 (01:30→10:00)
[2016-11-18] MEDS ORDERED: ETOMIDATE 20 MG/10 ML VIAL IV PUSH ONE (01:30)
[2016-11-18] MEDS ORDERED: PROPOFOL 1000 MG/100 ML INJ 100 ML ONE (01:32)
[2016-11-18] MEDS: NOREPINEPHRINE INJ 4 MG in SODIUM CHLOR 0.9% 250 ML INJ 246 ML IV PRN ×2 (01:55→03:00)
[2016-11-18] MEDS: PROPOFOL 1000 MG/100 ML INJ 100 ML IV PRN ×3 (01:55→18:18)
[2016-11-18] MEDS: MIDAZOLAM 100 MG/100 ML INJ 100 ML IV PRN ×2 (01:55→05:13)
[2016-11-18] MEDS: fentaNYL DRIP 250 ML IV PRN ×2 (01:57→21:16)
[2016-11-18] MEDS ORDERED: MAGNESIUM OXIDE 400 MG TAB PO PRN ×2 (02:15→06:00)
[2016-11-18] MEDS ORDERED: POTASSIUM CHLORIDE 25 MEQ EFFERVESCENT TAB PO PRN (02:15)
[2016-11-18] MEDS ORDERED: POTASSIUM CHLOR 40 MEQ PREMIX 100 ML IV PRN ×4 (02:15→06:00)
[2016-11-18] MEDS ORDERED: SODIUM PHOSPHATE INJ 30 MMOL in SODIUM CHLOR 0.9% 250 ML INJ 240 ML IV PRN ×2 (02:15→06:00)
[2016-11-18] MEDS ORDERED: POTASSIUM PHOSPHATE INJ 30 MMOL in SODIUM CHLOR 0.9% 250 ML INJ 250 ML IV PRN ×2 (02:15→06:00)
[2016-11-18] MEDS ORDERED: MAGNESIUM SULFATE INJ 2 GM in SODIUM CHLORIDE 0.9% INJ 96 ML IV PRN ×2 (02:15→06:00)
[2016-11-18] MEDS ORDERED: POTASSIUM PHOSPHATE MONOBASIC 500 MG TAB PO/TUBE PRN ×2 (02:15→06:00)
[2016-11-18] MEDS ORDERED: POTASSIUM PHOSPHATE MONOBASIC 500 MG TAB PO PRN ×2 (02:15→06:00)
[2016-11-18] MEDS ORDERED: MAGNESIUM SULFATE INJ 4 GM in SODIUM CHLORIDE 0.9% INJ 92 ML IV PRN ×2 (02:15→06:00)
[2016-11-18] MEDS ORDERED: POTASSIUM CHLOR 20 MEQ PREMIX 100 ML IV PRN ×4 (02:15→06:00)
--- NOTE | 2016-11-18 02:18 | RADRPT ---
EXAM DATE/TIME: 11/18/2016 01:44 [facility] COMPARISON: CT THORAX W/O CONTRAST, November 15, 2016, 9:10. CHEST SINGLE AP, November 17, 2016, 11:07. INDICATIONS : Post intubation. MEDICAL HISTORY : Carcinoma, colon. SURGICAL HISTORY : None. ENCOUNTER: Subsequent ACUITY: 2 days PAIN SCORE: Non-responsive. LOCATION: Bilateral chest FINDINGS: Portable AP view of the chest demonstrates a normal-sized cardiac silhouette. Endotracheal tube dista l tip is at the aortic knob level measuring 3.9 cm from the xavier. NG tube distal tip is just beyond the GE junction was abnormal the distal esophagus. Right subclavian central line tip is in the SVC. There is left lower lobe airspace consolidation with patchy nodular consolidation bilaterally. This h as increased from the study from yesterday. There is blunting of the right costophrenic sulcus. No pn eumothorax is identified. CONCLUSION: 1. Endotracheal tube and right subclavian central line in appropriate position. Nasogastric tube coul d be advanced. 2. Severe bilateral nodular airspace consolidation, increased from yesterday's examination. There is a small right pleural effusion. Manolo Bernal MD on November 18, 2016 at 2:14 Board Certified Radiologist. This report was verified electronically.
[2016-11-18 03:16] LABS: BLOOD GAS BASE EXCESS -7.9 mmol/L (-2-2); BLOOD GAS CARBOXYHEMOGLOBIN 1.2 % (0-4); BLOOD GAS HCO3 18 mmol/L (22-26); BLOOD GAS METHEMOGLOBIN 1.3 % (0-2); BLOOD GAS O2 HGB SATURATION 90 % (90-100); BLOOD GAS OXYGEN CONTENT 11.4 Vol % (12.0-20.0); BLOOD GAS PCO2 40 mmHg (38-42); BLOOD GAS PO2 78 mmHg (61-120); BLOOD GAS TOTAL HGB 8.9 G/DL (12.0-16.0); TEMP CORR TO 98.6
[2016-11-18 03:18] LABS: CRITICAL VALUE YES; DRAW SITE RT RADIAL; FIO2 100 %; NUMBER OF ARTERIAL PUNCTURES 1; OXYGEN DEVICE VENTILATOR; STAT NO; ULNAR PULSE PRESENT
[2016-11-18 03:25] LABS: VENT SETTINGS APRV/BIPHASI
[2016-11-18] MEDS ORDERED: SODIUM BICARBONATE 8.4% INJ 150 MEQ in DEXTROSE 5% IN WATE 1000ML INJ 1,000 ML IV SCH ×2 (03:45)
[2016-11-18] MEDS ORDERED: TERBUTALINE INJ 1 MG/ML AMP SQ PRN (03:45)
[2016-11-18] MEDS ORDERED: SODIUM CHLOR 0.9% 1000 ML INJ 1,000 ML IV ONE (03:45)
[2016-11-18] MEDS: RESP: ALBUTEROL 2.5 MG/IPRATROPIUM 0.5 MG NEB (SCH) INH ×4 (03:49→19:49)
[2016-11-18] MEDS: CHLORHEXIDINE GLUCONATE 2 % 1 PACK (2 CLOTHS) TOP SCH (04:00)
[2016-11-18] MEDS ORDERED: SODIUM CHLOR 0.9% 1000 ML INJ 1,000 ML IV SCH ×2 (04:30→10:00)
[2016-11-18] MEDS: INSULIN NovoLIN REGULAR SUPPLEMENTAL SCALE SQ SCH ×4 (04:31→23:00)
--- NOTE | 2016-11-18 05:22 | PD.PROCEDR ---
Procedure Note Procedure Centerline placement A time-out was completed verifying correct patient, procedure, site, positioning , and special equipment if applicable. The patient was placed in a dependent position appropriate for central line placement based on the vein to be cannulated. The patients right shoulder was prepped and draped in sterile fashion. 1% Lidocaine was used to anesthetize the surrounding skin area. A triple lumen 9-Mauritian Cordis catheter was introduced into the the right subclavian vein using the Seldinger technique. The catheter was threaded smoothly over the guide wire and appropriate blood return was obtained. Each lumen of the catheter was evacuated of air and flushed with sterile saline. The catheter was then sutured in place to the skin and a sterile dressing applied. Perfusion to the extremity distal to the point of catheter insertion was checked and found to be adequate. Estimated Blood Loss: 1ml The patient tolerated the procedure well and there were no complications. Jose Logan MD Nov 18, 2016 05:22
--- NOTE | 2016-11-18 05:23 | PD.PROCEDR ---
Procedure Note Procedure Endotracheal Intubation A time-out was completed verifying correct patient, procedure, site, positioning , and special equipment if applicable. The patient was placed in a flat position. Sedation was obtained using Etomidate 20mg. The patient was easily ventilated using an ambu bag. The [employer]/ MAC 4 BLADE was used and inserted into the oropharynx at which time there was a Grade 1 view of the vocal cords. A 8-irish endotracheal tube was inserted and visualized going through the vocal cords. The stylette was removed. Colorimetric change was visualized on the CO2 meter. Breath sounds were heard in both lung thomas equally. The endotracheal tube was placed at 23 cm, measured at the teeth. A chest x-ray was ordered to assess for pneumothorax and verify endotrachealtube placement. Estimated Blood Loss: 0 The patient tolerated the procedure well and there were no complications. Jose Logan MD Nov 18, 2016 05:23
[2016-11-18] MEDS ORDERED: VASOPRESSIN INJ 40 UNITS in DEXTROSE 5% IN WATER 100ML INJ 98 ML IV SCH ×2 (05:25)
[2016-11-18] MEDS ORDERED: NOREPINEPHRINE INJ 4 MG in SODIUM CHLOR 0.9% 250 ML INJ 246 ML IV PRN (05:30)
--- NOTE | 2016-11-18 05:59 | HHI.CCPN ---
Subjective Remarks/Hospital Course The patient is a 45-year-old male with past medical history of colon cancer on radiation treatment last session on Wednesday and has been on radiation for the past 2-3 months being followed by Dr. Harrell, his oncologist, and Dr. Galvan. He presented to [facility] emergency department with a couple of days history of shortness of breath, pleuritic chest pain with deep inspiration , dry cough and feeling nauseous. The patient denies any exposure to sick contacts. In addition, he denies any prior history of pneumonia or flu. He was found to have a temperature of 101.4 orally in the ER. In addition hewas tachycardiac with heart rate of 120s to 130s. Chest x-ray in the ER showed new bilateral mild air space opacities. The patient subsequently had CT scan of the chest which showed multiple new solid and cavitary irregular nodules seen throughout the lungs bilaterally, and small right-sided pleural effusion. His laboratory data is significant for renal failure with a creatinine level of 2.29 and hypokalemia with a potassium level of 2.8. His lactic acid level measured at 1.2. The patient also is thrombocytopenic with a platelet count of 55, however, his INR is 1.2. In the ED he was given three liters of Crystalloid in addition to cefepime, azithromycin, Tylenol and DuoNeb. When seen in the ER he was on room air oxygen with saturation 96%. However, tachycardiac with heart rate of 123 and blood pressure 154/75. He denies any vomiting, abdominal pain. 11/16 No events overnight. Patient is lying in bed in NAD. Afebrile. renal function is improving with Cr: 1.54 from 2.0. Echo from yesterday showed vegetation on TV, EF 50-55%. 11/17 Patient is lying in bed in NAD. Afebrile. 11/18: decompensated overnight. now intubated, on vasopressors, on 100% fio2 APRV with paO2 72. severe ARDS likely combination of pulmonary septic emboli combined with CHF from severe TR, however also now in septic shock. Objective Vital Signs Date Time Temp Pulse Resp B/P (MAP) Pulse Ox O2 Delivery O2 Flow Rate FiO2 11/18/16 04:09 100 100 11/18/16 04:00 98.1 108 20 90/54 (66) 11/17/16 20:45 Non-Rebreather 15.00 Intake and Output 11/18/16 11/18/16 11/19/16 08:00 16:00 00:00 Intake Total 1820 ml Output Total 50 ml Balance 1770 ml Result Diagram: 11/17/16 0446 11/17/16 0446 Other Results Microbiology Date/Time Source Procedure Growth Status 11/15/16 07:30 Nasal Aspirate Influenza Types A,B Antigen (MAHOGANY) - Final NEGATIVE FOR FLU A AND B ANTIGEN.... Complete 11/15/16 13:00 Urine Catheterized Urine Legionella Antigen - Final PRESUMPTIVE NEGATIVE FOR LEGIONELLA P... Complete 11/15/16 13:00 Urine Catheterized Urine Streptococcus pneumoniae Antigen (M - Final PRESUMPTIVE NEGATIVE FOR STREPTOCOCCU... Complete 11/15/16 08:20 Urine Catheterized Urine Urine Culture - Final S. Aureus Mrsa Complete Laboratory Tests Test 11/18/16 03:00 Blood Gas Puncture Site RT RADIAL Blood Gas Patient Temperature 98.6 Blood Gas HCO3 18 mmol/L (22-26) Blood Gas Base Excess -7.9 mmol/L (-2-2) Blood Gas Oxygen Saturation 90 % (90-100) Arterial Blood pH 7.27 (7.380-7.420) Arterial Blood Partial Pressure CO2 40 mmHg (38-42) Arterial Blood Partial Pressure O2 78 mmHg (61-120) Arterial Blood Oxygen Content 11.4 Vol % (12.0-20.0) Arterial Blood Carboxyhemoglobin 1.2 % (0-4) Arterial Blood Methemoglobin 1.3 % (0-2) Blood Gas Hemoglobin 8.9 G/DL (12.0-16.0) Oxygen Delivery Device VENTILATOR Blood Gas Ventilator Setting APRV/BIPHASI Blood Gas Inspired Oxygen 100 % Imaging Last Impressions Chest X-Ray 11/15/16 0724 Signed Impressions: Service Date/Time: Tuesday, November 15, 2016 07:37 - CONCLUSION: New bilateral mild basilar air space opacities which may represent subsegmental atelectasis versus evolving airspace consolidation. Katie Nevarez MD Renal Ultrasound 11/15/16 0000 Signed Impressions: Service Date/Time: Tuesday, November 15, 2016 10:26 - CONCLUSION: Normal examination. Katie Nevarez MD Chest CT 11/15/16 0000 Signed Impressions: Service Date/Time: Tuesday, November 15, 2016 09:10 - CONCLUSION: Multiple new solid and cavitary irregular nodules seen throughout the lungs bilaterally. These may represent foci of metastatic disease, however, given that these are new as compared to the prior exam of July 2016 concern is for possible septic emboli given the cavitary lesions. Small right-sided pleural effusion also favors possible infectious source. Ktaie Nevarez MD Objective Remarks GENERAL: middle-aged male, lying in bed, intubated, sedated, critically ill. SKIN: cool, poorly perfused HEAD: Normocephalic. EYES: No scleral icterus. No injection or drainage. NECK: trachea midline. +JVD CARDIOVASCULAR: Tachycardic, regular rhythm. sinus by tele. Bedside critical care ultrasound: hyperdynamic LV function, RV dilated, preserved function, flattening of the intraventricular septum throughout the cardiac cycle suggestive of RV volume overload. dilated IVC without respiratory variation. RESPIRATORY: bilateral coarse breath sounds in all lung thomas. intubated. PRVC 100% fio2, 30/0 I:E 5.5:1 GASTROINTESTINAL: Abdomen soft, non-tender, nondistended. MUSCULOSKELETAL: No cyanosis, or edema. Neuro: RASS -3, sedated. w/d x 4. 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 very critically ill today and clinically declining. will be forced to diurese patient given severe TR, but remains in septic shock on vasopressors. poor prognosis. Plan Neuro: Metabolic encephalopathy - propofol, versed, fentanyl for goal RASS -3. will need to keep deeply sedated to improve vent synchrony and prevent worsening hypoxemia. - no sedation vacation today Pulm: Acute hypoxic and hypercarbic respiratory failure Septic pulmonary emboli Pulmonary Edema Severe ARDS - intubated 11/18 for worsening hypoxemia - no sbt today given instability - continue APRV - wean fio2 for spo2 > 90% - nebs - vent bundle - will be forced to diurese despite ongoing shock. - 11/15 CT chest showed cavitary and irregular nodules throughout the lungs bilaterally. CV: Septic Shock Congestive Heart Failure Exacerbation secondary to valvulopathy Severe tricuspid regurgitation Pulmonary Edema - hold cardizem - quad concentrate levo - start vasopressin - diurese despite shock to preserve pulmonary function and optimize cardiac function. - Echo showed EF 50-55%, +Vegetations on TV, severe TR : Oliguric Acute kidney injury Intravascular volume overload - renal injury secondary to shock and CHF - will be forced to diurese despite shock - bumex 1mg iv q6h - strict i/os - stop mivf. FEN/GI: Acute protein calorie malnutrition- moderate Anion-gap metabolic acidosis Intravascular volume overload Colon cancer on radiation treatment Hepatitis C - hold TF and NPO while in shock - ICU electrolyte protocol - diuresis as above. ID: MRSA Tricuspid Valve infective endocarditis Septic Shock - ID on board - continue daptomycin - Echo showed vegetations on TV. - 11/15 BC: MRSA, GPC, 11/16 BC: NGTD - 11/15 Urine cx: MRSA Heme: Anemia secondary to chronic illness Thrombocytopenia secondary to hepatic dysfunction - daily cbc - low probability HIT - no indication for transfusion at this time. Endo: Hyperglycemia of critical illness - SSI with Accu-Cheks for glycemic control. GI prophylaxis with Protonix 40 milligrams daily and DVT prophylaxis with SCDs. Not on chemical anticoagulation prophylaxis due to thrombocytopenia. Dispo: remain in ICU. very critically ill. This patient remains critically ill with one or more organ systems which are or may become a threat to life. I have spent in excess of 77 minutes discontinuously in the care and management of this patient. This time is exclusive of procedures, and includes, but is not limited to, evaluation of the patient, review of the medical record, discussions with family, consultants, nursing staff, or respiratory therapy, and documentation in the medical record. Omer Justin MD Nov 18, 2016 05:59
[2016-11-18] MEDS: BUMETANIDE INJ 1 MG/4 ML VIAL IV PUSH SCH ×3 (06:31→17:18)
[2016-11-18] MEDS ORDERED: NOREPINEPHRINE INJ 16 MG in SODIUM CHLOR 0.9% 250 ML INJ 234 ML IV PRN (06:45)
[2016-11-18 07:39] LABS: AUTOMATED NEUTROPHIL # 16.8 TH/MM3 (1.8-7.7); BASOPHIL % 0.1 % (0.0-2.0); EOSINOPHIL % 0.1 % (0.0-4.0); HEMATOCRIT 25.2 % (39.0-51.0); LYMPH % 1.2 % (9.0-44.0); LYMPHOCYTE # 0.2 TH/MM3 (1.0-4.8); MEAN CELL VOLUME 78.3 FL (80.0-100.0); MEAN CORPUSCULAR HEMOGLOBIN 25.9 PG (27.0-34.0); MONO % 3.1 % (0.0-8.0); NEUT % 95.5 % (16.0-70.0); PLATELET COUNT 58 TH/MM3 (150-450); RED BLOOD COUNT 3.22 MIL/MM3 (4.50-5.90); RED CELL DISTRIBUTION WIDTH 16.1 % (11.6-17.2); WHITE BLOOD COUNT 17.6 TH/MM3 (4.0-11.0)
[2016-11-18 07:43] LABS: HEMO FLAGS AUTO DIFF
[2016-11-18] MEDS: VASOPRESSIN INJ 40 UNITS in DEXTROSE 5% IN WATER 100ML INJ 98 ML IV SCH ×4 (07:45→23:06)
[2016-11-18 07:50] LABS: BICARBONATE 20.3 MEQ/L (21.0-32.0)
[2016-11-18 08:01] LABS: BLOOD GAS HCO3 17 mmol/L (22-26); BLOOD GAS METHEMOGLOBIN 1.3 % (0-2); BLOOD GAS O2 HGB SATURATION 84 % (90-100); BLOOD GAS PCO2 33 mmHg (38-42); BLOOD GAS PO2 57 mmHg (61-120); BLOOD GAS TOTAL HGB 9.3 G/DL (12.0-16.0); TEMP CORR TO 98.6
[2016-11-18 08:02] LABS: CRITICAL VALUE YES; OXYGEN DEVICE VENTILATOR
[2016-11-18 08:03] LABS: DRAW SITE RT RADIAL; FIO2 80 %; NUMBER OF ARTERIAL PUNCTURES 1; STAT NO; ULNAR PULSE PRESENT; VENT SETTINGS APRV
[2016-11-18 08:04] LABS: CALCIUM-PROTEIN CORRECTED 7.9 MG/DL (8.5-10.1)
--- NOTE | 2016-11-18 08:27 | HHI.PYPN ---
Subjective Remarks Attempted to see patient today. Patient intubated unable to do full consult. Chart reviewed. Discussed with staff. At this time unable to do further assessment. Please reconsult psychiatry patient extubated and conversant Review of Systems ROS Limitations: Clinical Condition, Altered Mental Status Objective Alert: No (patient intubated unable to do further mental status exam) [place]: Situation (patient intubated) Mood: Other (patient intubated) Affect: Other (patient intubated) Memory Intact: Comment (patient intubated) Hallucinations: Other (he should intubated) Delusions: No (patient intubated) Delusion Type: Other ( intubated) Suicidal: Ideation (he should intubated) Homicidal: Ideation (patient intubated) Insight/Judgment Patient intubated Labs Test 11/18/16 03:00 11/18/16 06:00 11/18/16 07:47 Blood Gas Puncture Site RT RADIAL RT RADIAL Blood Gas Patient Temperature 98.6 98.6 Blood Gas HCO3 18 mmol/L 17 mmol/L Blood Gas Base Excess -7.9 mmol/L -8.0 mmol/L Blood Gas Oxygen Saturation 90 % 84 % Arterial Blood pH 7.27 7.33 Arterial Blood Partial Pressure CO2 40 mmHg 33 mmHg Arterial Blood Partial Pressure O2 78 mmHg 57 mmHg Arterial Blood Oxygen Content 11.4 Vol % 11.0 Vol % Arterial Blood Carboxyhemoglobin 1.2 % 1.0 % Arterial Blood Methemoglobin 1.3 % 1.3 % Blood Gas Hemoglobin 8.9 G/DL 9.3 G/DL Oxygen Delivery Device VENTILATOR VENTILATOR Blood Gas Ventilator Setting APRV/BIPHASI APRV Blood Gas Inspired Oxygen 100 % 80 % White Blood Count 17.6 TH/MM3 Red Blood Count 3.22 MIL/MM3 Hemoglobin 8.3 GM/DL Hematocrit 25.2 % Mean Corpuscular Volume 78.3 FL Mean Corpuscular Hemoglobin 25.9 PG Mean Corpuscular Hemoglobin Concent 33.0 % Red Cell Distribution Width 16.1 % Platelet Count 58 TH/MM3 Mean Platelet Volume 8.9 FL Neutrophils (%) (Auto) 95.5 % Lymphocytes (%) (Auto) 1.2 % Monocytes (%) (Auto) 3.1 % Eosinophils (%) (Auto) 0.1 % Basophils (%) (Auto) 0.1 % Neutrophils # (Auto) 16.8 TH/MM3 Lymphocytes # (Auto) 0.2 TH/MM3 Monocytes # (Auto) 0.6 TH/MM3 Eosinophils # (Auto) 0.0 TH/MM3 Basophils # (Auto) 0.0 TH/MM3 CBC Comment AUTO DIFF Blood Urea Nitrogen 35 MG/DL Creatinine 1.83 MG/DL Random Glucose 114 MG/DL Total Protein 5.2 GM/DL Calcium Level 6.9 MG/DL Phosphorus Level 4.9 MG/DL Sodium Level 140 MEQ/L Potassium Level 4.0 MEQ/L Chloride Level 108 MEQ/L Carbon Dioxide Level 20.3 MEQ/L Anion Gap 12 MEQ/L Estimat Glomerular Filtration Rate 41 ML/MIN Protein Corrected Calcium 7.9 MG/DL Date/Time Source Procedure Growth Status 11/17/16 12:07 Blood Peripheral Aerobic Blood Culture Pending Received 11/17/16 12:07 Blood Peripheral Anaerobic Blood Culture Pending Received 11/18/16 02:20 Sputum Endotracheal Gram Stain Pending Received 11/18/16 02:20 Sputum Endotracheal Sputum Culture Pending Received 11/15/16 13:00 Urine Catheterized Urine Legionella Antigen - Final PRESUMPTIVE NEGATIVE FOR LEGIONELLA P... Complete 11/15/16 13:00 Urine Catheterized Urine Streptococcus pneumoniae Antigen (M - Final PRESUMPTIVE NEGATIVE FOR STREPTOCOCCU... Complete Vitals/IOs Vital Signs Date Time Temp Pulse Resp B/P (MAP) Pulse Ox O2 Delivery O2 Flow Rate FiO2 11/18/16 07:59 98 90 11/18/16 06:00 107 11/18/16 04:00 98.1 20 90/54 (66) 11/17/16 20:45 Non-Rebreather 15.00 Intake and Output 11/18/16 11/18/16 11/19/16 08:00 16:00 00:00 Intake Total 1820 ml Output Total 50 ml Balance 1770 ml Assessment & Plan Problem List: (1) Severe sepsis ICD Codes: A41.9 - Sepsis, unspecified organism; R65.20 - Severe sepsis without septic shock Status: Acute (2) Bilateral pneumonia ICD Codes: J18.9 - Pneumonia, unspecified organism Status: Acute Assessment & Plan Estimated LOS: days patient intubated unable to assess Justification for Cont. Inpt. Patient intubated Problem Qualifiers (1) Bilateral pneumonia: Qualified Codes: J18.9 - Pneumonia, unspecified organism Manolo Cardoso MD Nov 18, 2016 08:27
[2016-11-18 09:12] LABS: OVALOCYTES 1+ (NORMAL); PLATELET ESTIMATE SMEAR LOW (NORMAL); PLATELET MORPHOLOGY NORMAL (NORMAL); SCAN/DIFF AUTO DIFF CONFIRMED
[2016-11-18] MEDS: PIPERACIL-TAZO 4.5 GM PREMIX 100 ML IV SCH ×3 (09:15→23:12)
[2016-11-18] MEDS: NOREPINEPHRINE INJ 16 MG in SODIUM CHLOR 0.9% 250 ML INJ 234 ML IV PRN ×2 (09:37→09:47)
[2016-11-18] MEDS: PANTOPRAZOLE SODIUM 40 MG VIAL IV SCH (09:57)
[2016-11-18] MEDS: CEFTAROLINE INJ 600 MG in SODIUM CHLORIDE 0.9% INJ 100 ML IV SCH ×3 (09:57→23:10)
[2016-11-18] MEDS: DOCUSATE SODIUM 50 MG/SENNA 8.6 MG TAB PO SCH ×2 (10:06→21:14)
[2016-11-18] MEDS: RIFAMPIN 150 MG CAP PO SCH ×2 (10:06→21:14)
[2016-11-18 10:39] LABS: BLOOD GAS BASE EXCESS -10.5 mmol/L (-2-2); BLOOD GAS CARBOXYHEMOGLOBIN 0.7 % (0-4); BLOOD GAS HCO3 15 mmol/L (22-26); BLOOD GAS METHEMOGLOBIN 1.4 % (0-2); BLOOD GAS O2 HGB SATURATION 97 % (90-100); BLOOD GAS OXYGEN CONTENT 14.4 Vol % (12.0-20.0); BLOOD GAS PCO2 32 mmHg (38-42); BLOOD GAS PO2 322 mmHg (61-120); BLOOD GAS TOTAL HGB 9.9 G/DL (12.0-16.0); TEMP CORR TO 98.6
[2016-11-18 10:40] LABS: CRITICAL VALUE YES; OXYGEN DEVICE VENTILATOR
[2016-11-18 10:43] LABS: DRAW SITE LT RADIAL; NUMBER OF ARTERIAL PUNCTURES 1; STAT NO; ULNAR PULSE PRESENT
[2016-11-18] MEDS: SODIUM CHLORIDE 0.9% IV SCH (11:17)
[2016-11-18] MEDS: DAPTOMYCIN IV SCH (11:17)
--- NOTE | 2016-11-18 12:28 | MB ---
cc: BEAU OCAMPO MD DATE OF CONSULTATION 11/18/2016 DATE OF ADMISSION 11/15/2016 REASON FOR CONSULTATION This is a 45-year-old male with a history of rectal cancer who underwent colonoscopy and biopsies July 2016 and was found to have a large rectal mass, ulceration, friability and partial obstruction revealed invasive moderately differentiated adenocarcinoma. Also had a CT of the chest which showed no evidence of metastatic disease. CT of the abdomen and pelvis showed some mild hepatic steatosis. He has undergone radiation therapy. His last session was Wednesday prior to admission with Oncologist, Dr. Harrell. Apparently presented to the emergency room with a history of shortness of breath, pleuritic chest discomfort, dry cough and nausea. Most of the information was obtained from the chart. He was found to have a temperature of 101 orally, also tachypneic. Chest x-ray showed bilateral air space opacity. CT of the chest showed a new solid cavitary irregular nodules seen throughout the lungs bilaterally and a small right effusion. LABORATORY DATA Lab work showed an initial creatinine of 2.29 with acute renal failure, hypokalemia with a potassium 2.8, acute thrombocytopenia with platelet count of 55 and INR of 1.2. He received 3 liters of crystalloids in the emergency department including IV antibiotics. He was initially on room air, however he remained tachypneic and hypertensive. On the , they did a 2-D echo in the office which showed an EF of 50-55% severe tricuspid regurgitation with vegetation on the anterior leaflet of the tricuspid valve, pulmonary artery pressures of 45 mmHg, normal left atrial, normal right atrial size. No aortic valve stenosis or regurgitation. No mitral valve stenosis or regurgitation. We were consulted because of positive blood cultures and tricuspid valve endocarditis. Per the note from Dr. Santos who evaluated the patient on admission, the patient did admit to injecting himself on three occasions with IV Dilaudid. PAST MEDICAL HISTORY The past medical history notable for rectal cancer which she is followed with by Dr. Harrell for radiation therapy. SURGERIES He has had colon biopsy. ALLERGIES No known allergies MEDICATIONS Home meds include Percocet. SOCIAL HISTORY Apparently he lives with his mother. He has no children. 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 He smoked a pack per day, but not presently, minimal alcohol. Positive IV drug use per the medical chart. REVIEW OF SYSTEMS Unobtainable, the patient is intubated. PHYSICAL EXAM On exam, a somewhat ill-appearing male. VITAL SIGNS: Blood pressure 120/80, heart rate of 92, temperature max 98.1, O2 sat 100% on 90% FIO2. The patient is sedated, orally intubated on multiple IV pressors for blood pressure. HEAD, EYES, EARS, NOSE, AND THROAT: Pupils are approximately 2 mm midline, sluggish. Orally intubated. NECK: Supple. No JVD. HEART: S1-S2 slightly tachycardiac. No rubs, murmurs, gallops. LUNGS: A few coarse breath sounds equal bilaterally. No use of a sensory muscles. ABDOMEN: Slightly distended. Positive bowel sounds. EXTREMITIES: Reveal no cyanosis or clubbing. He has some mild generalized edema, questionable track bliss to the left forearm and he has multiple IV sticks to both antecubital areas. No [place] lesions noted. LABORATORY FINDINGS Shows hemoglobin 8.3, hematocrit 25, white cell count 17, platelet count of 58 down from 71. Sodium 140, potassium 4.0, BUN 35, creatinine 1.83, INR 1.2. Toxicology screen showed positive cocaine, positive opiates. Urinalysis showed large leukoesterase. MRSA screen detected. HIV test negative. Hep-C reactive. Hep-B and A negative. Latest blood gas showed a pH 7.29, CO2 of 32, pO2 of 322 with a base excess of -10 and a bicarb of 15. He is on A PRB mode. Microbiology shows blood cultures staph MRSA positive on the , Staph MRSA in the urine. On the blood cultures remained positive with gram-positive cocci. MEDICATIONS Current medications include: 1. Ceftaroline 2. Zosyn 3. Multiple pressors 4. Daptomycin IMPRESSION This is a 45-year-old male with active drug use, infective tricuspid valve endocarditis, now in septic shock, thrombocytopenia, critically ill. The echo has been evaluated by Dr. Beau Ocampo. The patient is not a candidate for surgery at this time. He needs to complete his full course of antibiotics and he has a recent IV drug use. Continue supportive care at this time. Dictated by Nishi Luciano, HARISH Beau BAHENA/DJL /11:57 AM /2:16 PM
[2016-11-18 14:07] LABS: BACTERIA, URINE OCC /hpf; BLOOD, URINE MOD (NEG); GLUCOSE,URINE NEG (NEG); GRANULAR CAST, URINE 6 /lpf; HYALINE CAST, URINE 4 /lpf (RARE); KETONE, URINE TRACE mg/dL (NEG); MUCUS URINE FEW /lpf (OCC); NITRITE,URINE NEG (NEG); PH, URINE 5.5 (5.0-8.5); SQUAMOUS EPITHELIAL CELL URINE <1 /hpf (0-5)
[2016-11-18 14:08] LABS: URINE COLOR AMBER (YELLW/STRAW)
[2016-11-18 14:09] LABS: COMMENT (UR) CATH-CULTURE IND; CULTURE IF INDICATED CATH CULTURE IND
--- NOTE | 2016-11-18 15:32 | PD.ONC.PN ---
Subjective Subjective Remarks On pressors Pt sedated and intubated Per RN he may be placed on a prone bed, as it appears he has gone into ARDS. Objective Data Date Time Temp Pulse Resp B/P (MAP) Pulse Ox O2 Delivery O2 Flow Rate FiO2 11/18/16 13:04 99 75 11/18/16 12:30 96 104/68 11/18/16 12:00 95 103/67 11/18/16 11:45 93 100/64 11/18/16 11:20 91 110/71 11/18/16 11:16 92 109/76 11/18/16 10:31 92 119/83 11/18/16 10:15 94 118/82 11/18/16 10:00 97 126/85 11/18/16 09:47 94 94/63 11/18/16 08:00 105 90/57 11/18/16 07:59 98 90 11/18/16 07:46 108 89/55 11/18/16 07:45 97 87/55 11/18/16 06:00 107 11/18/16 04:09 100 100 11/18/16 04:00 98.1 108 20 90/54 (66) 97 11/18/16 04:00 108 11/18/16 04:00 98.1 108 20 90/54 (66) 82 11/18/16 02:00 100 11/18/16 02:00 126 11/18/16 01:45 96 100 11/18/16 01:00 127 38 139/86 (103) 85 11/18/16 00:00 123 11/18/16 00:00 97.9 123 42 133/87 (102) 89 11/17/16 23:00 125 43 155/83 (107) 80 11/17/16 22:00 115 11/17/16 22:00 115 44 125/66 (85) 94 11/17/16 21:00 122 40 146/82 (103) 92 11/17/16 21:00 122 11/17/16 20:45 94 Non-Rebreather 15.00 11/17/16 20:00 119 11/17/16 20:00 97.9 119 27 136/85 (102) 93 11/17/16 19:00 121 21 142/83 (102) 94 11/17/16 18:00 124 38 144/82 (102) 95 11/17/16 18:00 124 11/17/16 17:00 118 35 128/81 (97) 87 11/17/16 16:00 121 11/17/16 16:00 99.6 121 37 119/88 (98) 87 11/18/16 11/18/16 11/18/16 07:00 15:00 23:00 Intake Total 1820 ml 234 ml Output Total 50 ml Balance 1770 ml 234 ml Result Diagram: 11/18/16 0600 11/18/16 0600 Laboratory Results Laboratory Tests Test 11/18/16 03:00 11/18/16 06:00 11/18/16 07:47 11/18/16 10:20 Urine Color CYNTHIA Urine Turbidity HAZY Urine pH 5.5 Urine Specific [place] 1.016 Urine Protein 30 mg/dL Urine Glucose (UA) NEG mg/dL Urine Ketones TRACE mg/dL Urine Occult Blood MOD Urine Nitrite NEG Urine Bilirubin SMALL Urine Urobilinogen 2.0 MG/DL Urine Leukocyte Esterase SMALL Urine RBC 50 /hpf Urine WBC 23 /hpf Urine Squamous Epithelial Cells <1 /hpf Urine Amorphous Sediment FEW Urine Bacteria OCC /hpf Urine Hyaline Casts 4 /lpf Urine Granular Casts 6 /lpf Urine Mucus FEW /lpf Microscopic Urinalysis Comment CATH-CULTURE IND Blood Gas Puncture Site RT RADIAL RT RADIAL LT RADIAL Blood Gas Patient Temperature 98.6 98.6 98.6 Blood Gas HCO3 18 mmol/L 17 mmol/L 15 mmol/L Blood Gas Base Excess -7.9 mmol/L -8.0 mmol/L -10.5 mmol/L Blood Gas Oxygen Saturation 90 % 84 % 97 % Arterial Blood pH 7.27 7.33 7.29 Arterial Blood Partial Pressure CO2 40 mmHg 33 mmHg 32 mmHg Arterial Blood Partial Pressure O2 78 mmHg 57 mmHg 322 mmHg Arterial Blood Oxygen Content 11.4 Vol % 11.0 Vol % 14.4 Vol % Arterial Blood Carboxyhemoglobin 1.2 % 1.0 % 0.7 % Arterial Blood Methemoglobin 1.3 % 1.3 % 1.4 % Blood Gas Hemoglobin 8.9 G/DL 9.3 G/DL 9.9 G/DL Oxygen Delivery Device VENTILATOR VENTILATOR VENTILATOR Blood Gas Ventilator Setting APRV/BIPHASI APRV Blood Gas Inspired Oxygen 100 % 80 % White Blood Count 17.6 TH/MM3 Red Blood Count 3.22 MIL/MM3 Hemoglobin 8.3 GM/DL Hematocrit 25.2 % Mean Corpuscular Volume 78.3 FL Mean Corpuscular Hemoglobin 25.9 PG Mean Corpuscular Hemoglobin Concent 33.0 % Red Cell Distribution Width 16.1 % Platelet Count 58 TH/MM3 Mean Platelet Volume 8.9 FL Neutrophils (%) (Auto) 95.5 % Lymphocytes (%) (Auto) 1.2 % Monocytes (%) (Auto) 3.1 % Eosinophils (%) (Auto) 0.1 % Basophils (%) (Auto) 0.1 % Neutrophils # (Auto) 16.8 TH/MM3 Lymphocytes # (Auto) 0.2 TH/MM3 Monocytes # (Auto) 0.6 TH/MM3 Eosinophils # (Auto) 0.0 TH/MM3 Basophils # (Auto) 0.0 TH/MM3 CBC Comment AUTO DIFF Differential Comment AUTO DIFF CONFIRMED Platelet Estimate LOW Platelet Morphology Comment NORMAL Ovalocytes 1+ Blood Urea Nitrogen 35 MG/DL Creatinine 1.83 MG/DL Random Glucose 114 MG/DL Total Protein 5.2 GM/DL Calcium Level 6.9 MG/DL Phosphorus Level 4.9 MG/DL Sodium Level 140 MEQ/L Potassium Level 4.0 MEQ/L Chloride Level 108 MEQ/L Carbon Dioxide Level 20.3 MEQ/L Anion Gap 12 MEQ/L Estimat Glomerular Filtration Rate 41 ML/MIN Protein Corrected Calcium 7.9 MG/DL Culture Results Microbiology Date/Time Source Procedure Growth Status 11/17/16 12:07 Blood Peripheral Aerobic Blood Culture - Preliminary Gram Positive Cocci Resulted 11/17/16 12:07 Blood Peripheral Anaerobic Blood Culture - Preliminary NO GROWTH IN 1 DAY Resulted 11/17/16 12:00 Blood Peripheral Aerobic Blood Culture - Preliminary Gram Positive Cocci Resulted 11/17/16 12:00 Blood Peripheral Anaerobic Blood Culture - Preliminary NO GROWTH IN 1 DAY Resulted 11/16/16 14:35 Blood Peripheral Aerobic Blood Culture - Final S. Aureus Mrsa Complete 11/16/16 14:35 Anaerobic Blood Culture - Final S. Aureus Mrsa Complete 11/16/16 14:30 Blood Peripheral Aerobic Blood Culture - Final S. Aureus Mrsa Complete 11/16/16 14:30 Anaerobic Blood Culture - Final S. Aureus Mrsa Complete 11/18/16 02:20 Sputum Endotracheal Gram Stain - Final Resulted 11/18/16 02:20 Sputum Endotracheal Sputum Culture Pending Resulted 11/18/16 03:00 Urine Catheterized Urine Urine Culture Pending Received Imaging Studies Last 24 hours Impressions Chest X-Ray 11/18/16 0000 Signed Impressions: Service Date/Time: Friday, November 18, 2016 01:44 - CONCLUSION: 1. Endotracheal tube and right subclavian central line in appropriate position. Nasogastric tube could be advanced. 2. Severe bilateral nodular airspace consolidation, increased from yesterday's examination. There is a small right pleural effusion. Manolo Bernal MD Administered Medications Medications (Trade) Dose Ordered Sig/Osvaldo Route PRN Reason Start Time Stop Time Status Last Admin Dose Admin Pantoprazole Sodium (Protonix Inj) 40 mg DAILY IV 11/15/16 10:00 11/18/16 09:57 Albuterol/ Ipratropium (Duoneb Neb) 1 ampule Q6HR NEB INH 11/15/16 10:00 11/18/16 08:11 Ipratropium Warner (Atrovent Neb) 0.5 mg Q2HR NEB PRN INH WHEEZING 11/15/16 09:00 11/18/16 01:12 Chlorhexidine Gluconate (Chlorhexidine 2% Cloth) 3 pack Taper DAILY@04 TOP 11/16/16 04:00 11/12/17 03:59 11/18/16 04:00 Senna/Docusate Sodium (Marina-Colace) 1 tab BID PO 11/15/16 11:00 11/18/16 10:06 Ondansetron HCl (Zofran Inj) 4 mg Q8H PRN IV PUSH NAUSEA OR VOMITING 11/15/16 13:15 11/15/16 20:37 Daptomycin 590 mg/ Sodium Chloride 100 ml @ 200 mls/hr Q24H IV 11/17/16 12:00 11/18/16 11:17 Rifampin (Rifampin) 150 mg Q12HR PO 11/17/16 21:00 11/18/16 10:06 Propofol 100 ml @ 2.193 mls/ hr Q24H PRN IV SEDATION 11/18/16 01:27 11/18/16 11:16 Fentanyl Citrate 250 ml @ 5 mls/hr Q24H PRN IV SEDATION 11/18/16 01:27 11/18/16 01:57 Midazolam HCl 100 ml @ 2 mls/hr Q24H PRN IV SEDATION 11/18/16 01:27 11/18/16 01:55 Bumetanide (Bumex Inj) 1 mg Q6H IV PUSH 11/18/16 06:00 11/18/16 11:17 Vasopressin 40 units/Dextrose 100 ml @ 1.5 mls/hr Q24H IV 11/18/16 05:54 11/18/16 07:45 Norepinephrine Bitartrate 16 mg/ Sodium Chloride 250 ml @ 1.87 mls/hr TITRATE PRN IV Maintain MAP > 65 mmHg 11/18/16 06:45 11/18/16 09:47 Piperacillin Sod/ Tazobactam Sod 100 ml @ 200 mls/hr Q8H IV 11/18/16 08:00 11/18/16 09:15 Ceftaroline Fosamil 600 mg/ Sodium Chloride 100 ml @ 100 mls/hr Q8H IV 11/18/16 09:00 11/18/16 09:57 Sodium Chloride 1,000 ml @ 100 mls/hr Q10H IV 11/18/16 10:00 11/18/16 08:00 Objective Remarks GENERAL: Young male resting in bed mechanically ventilated. SKIN: Warm and dry. HEAD: Normocephalic. EYES: No injection or drainage. NECK: Supple, trachea midline. CARDIOVASCULAR: +S1/S2. CM shows ST. RESPIRATORY: Mechanically ventilated. Clear anteriorly. GASTROINTESTINAL: Abdomen nondistended, mildly firm. EXTREMITIES: No cyanosis, or edema. MUSCULOSKELETAL: Adequate muscle tone. NEUROLOGICAL: No obvious focal deficit. Awake, alert, and oriented x3. Assessment/Plan Problem List: (1) Rectal cancer ICD Codes: C20 - Malignant neoplasm of rectum Status: Acute Plan: Completed XRT in his time, unlikely with Xeloda. Lost to follow up since August. States he had alot of personal problem he could not complete his therapy as scheduled. Treatment less than ideal which is concerning as the efficacy of treatment and cure is greatly diminished. Reports Dr. Galvan happy with his response but sounds like he was residual disease evident. He will need definitive surgery after infection resolved. No nodules present at time of dx, nodules appear with clinical picture of bacterial endocarditis. No additional tx from Oncology now. 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 ID following. Pt sedated and mechanically ventilated; thought going into ARDS. Assessment 45 y/o man with localized rectal cancer, less than ideal treatment for curative intent due to pt's poor compliance and personal problems. Course complicated by MRSA bacteremia from IVDA. Plan 1. No oncologic treatment until infection cleared. 2. IV abx per ID. 3. Infective tricuspid valve endocarditis; cardiothoracics have seen pt and are awaiting infection to clear prior to any intervention. Attending Statement The exam, history, and the medical decision-making described in the above note were completed with the assistance of the mid-level provider. I reviewed and agree with the findings presented. I attest that I had a [id number] encounter with the patient on the same day, and personally performed and documented my assessment and findings in the medical record. Pt seen and examined. Events noted, intubation early AM, MOF. Bacterial endocarditis/heart valve vegetation confirmed. Unlikely metastatic rectal cancer with lung mets, when liver is clear. Follow peripherally. Shameka Grimes Nov 18, 2016 15:32 Vielka Harrell MD Nov 18, 2016 20:38
--- NOTE | 2016-11-18 15:37 | HHI.IDPN ---
Subjective Subjective Remarks is a 45 y/o CM with history of Rectal Cancer (Invasive moderately differentiated Adenocarcinoma with no prior lung or distant mets), and has no port or PICC line and has been receiving oral chemotherapy. Patient is followed by Dr. Vielka Harrell. Patient also sees colorectal surgeon and has undergone colonoscopy but no definite surgery. Patient also has been seeing Dr. Santana radiation oncologist and has been undergoing radiation therapy. Reportedly, the patient's last radiation therapy was on Wednesday before admission. PMHx: Patient initially presented with lower abdominal pain in January 2016. Next patient presented in April 2016 with lower abdominal pain brought in by [facility] with rectal bleeding from a [facility]. Patient was referred to Dr. Galvan colorectal surgeon. Patient was again seen in July 2016 for ongoing rectal bleeding for several months and underwent a colonoscopy which showed invasive moderately differentiated adenocarcinoma. Multiple consultants were involved and the determination was made that he did not have any lung or any other distant metastasis. Patient was eventually placed on chemotherapy and radiation therapy. Patient's mother reports that he has not been compliant with his oral chemotherapy regimen. It appears that he does comply with radiation therapy. With this background patient presents to [facility] emergency department accompanied with his mother. Patient's temperature on admission was 100 and later increased to 101.4, heart rate was 142, blood pressure 107/63 63 on presentation and currently is 157/77. Lactic acid normal. His white count on admission was 9.2 H&H 9.8/28, platelets 55, sodium 1:30, potassium 2.8, creatinine 2.29. Sepsis workup was initiated on admission and blood cultures are pending. Urine and other studies are pending. UA appears to be abnormal. Patient underwent chest x-ray which was suggestive of bilateral pneumonia. Given his history of being immune compromised patient underwent a CT of the chest which shows bilateral cavitary lesions which is suggestive of possible septic emboli. In the emergency department patient received 1 dose of cefepime as well as azithromycin and was subsequently switched to Zosyn, azithromycin and vancomycin IV. Infectious disease was consulted for the management of sepsis, pneumonia in an immune compromised patient. Overnight events reviewed. Intubated overnight. On Levophed and Vasopressin. UO 2000 plus overnight. Secretions small, white to jacobs. No rash No diarrhea Moves all 4 extremities. Antibiotics Dapto IV Rifampin Lines Line sites with no e.o infection. Past Medical History reviewed. Allergies: Coded Allergies: No Known Allergies (Unverified , 11/15/16) Objective . Vital Signs Date Time Temp Pulse Resp B/P (MAP) Pulse Ox O2 Delivery O2 Flow Rate FiO2 11/18/16 13:04 99 75 11/18/16 12:30 96 104/68 11/18/16 12:00 95 103/67 11/18/16 11:45 93 100/64 11/18/16 11:20 91 110/71 11/18/16 11:16 92 109/76 11/18/16 10:31 92 119/83 11/18/16 10:15 94 118/82 11/18/16 10:00 97 126/85 11/18/16 09:47 94 94/63 11/18/16 08:00 105 90/57 11/18/16 07:59 98 90 11/18/16 07:46 108 89/55 11/18/16 07:45 97 87/55 11/18/16 06:00 107 11/18/16 04:09 100 100 11/18/16 04:00 98.1 108 20 90/54 (66) 97 11/18/16 04:00 108 11/18/16 04:00 98.1 108 20 90/54 (66) 82 11/18/16 02:00 100 11/18/16 02:00 126 11/18/16 01:45 96 100 11/18/16 01:00 127 38 139/86 (103) 85 11/18/16 00:00 123 11/18/16 00:00 97.9 123 42 133/87 (102) 89 11/17/16 23:00 125 43 155/83 (107) 80 11/17/16 22:00 115 11/17/16 22:00 115 44 125/66 (85) 94 11/17/16 21:00 122 40 146/82 (103) 92 11/17/16 21:00 122 11/17/16 20:45 94 Non-Rebreather 15.00 11/17/16 20:00 119 11/17/16 20:00 97.9 119 27 136/85 (102) 93 11/17/16 19:00 121 21 142/83 (102) 94 11/17/16 18:00 124 38 144/82 (102) 95 11/17/16 18:00 124 11/17/16 17:00 118 35 128/81 (97) 87 11/17/16 16:00 121 11/17/16 16:00 99.6 121 37 119/88 (98) 87 11/18/16 11/18/16 11/19/16 14:59 22:59 06:59 Intake Total 234 ml Balance 234 ml IV Total 234 ml . Laboratory Tests Test 11/17/16 04:46 11/18/16 06:00 White Blood Count 11.9 TH/MM3 17.6 TH/MM3 Red Blood Count 3.86 MIL/MM3 3.22 MIL/MM3 Hemoglobin 9.8 GM/DL 8.3 GM/DL Hematocrit 30.0 % 25.2 % Mean Corpuscular Volume 77.8 FL 78.3 FL Mean Corpuscular Hemoglobin 25.5 PG 25.9 PG Mean Corpuscular Hemoglobin Concent 32.7 % 33.0 % Red Cell Distribution Width 16.1 % 16.1 % Platelet Count 71 TH/MM3 58 TH/MM3 Mean Platelet Volume 8.9 FL 8.9 FL CBC Comment AUTO DIFF AUTO DIFF Differential Total Cells Counted 100 Neutrophils % (Manual) 76 % Band Neutrophils % 16 % Lymphocytes % 3 % Monocytes % 4 % Eosinophils % 1 % Neutrophils # (Manual) 10.9 TH/MM3 Nucleated Red Blood Cells 1 /100 WBC Differential Comment FINAL DIFF MANUAL AUTO DIFF CONFIRMED Toxic Granulation 1+ Toxic Vacuolation PRESENT Dohle Bodies PRESENT Platelet Estimate LOW LOW Platelet Morphology Comment NORMAL NORMAL Ovalocytes 1+ 1+ Neutrophils (%) (Auto) 95.5 % Lymphocytes (%) (Auto) 1.2 % Monocytes (%) (Auto) 3.1 % Eosinophils (%) (Auto) 0.1 % Basophils (%) (Auto) 0.1 % Neutrophils # (Auto) 16.8 TH/MM3 Lymphocytes # (Auto) 0.2 TH/MM3 Monocytes # (Auto) 0.6 TH/MM3 Eosinophils # (Auto) 0.0 TH/MM3 Basophils # (Auto) 0.0 TH/MM3 Laboratory Tests Test 11/17/16 04:46 11/18/16 06:00 Blood Urea Nitrogen 25 MG/DL 35 MG/DL Creatinine 1.24 MG/DL 1.83 MG/DL Random Glucose 85 MG/DL 114 MG/DL Calcium Level 7.6 MG/DL 6.9 MG/DL Sodium Level 142 MEQ/L 140 MEQ/L Potassium Level 3.4 MEQ/L 4.0 MEQ/L Chloride Level 110 MEQ/L 108 MEQ/L Carbon Dioxide Level 21.5 MEQ/L 20.3 MEQ/L Anion Gap 11 MEQ/L 12 MEQ/L Estimat Glomerular Filtration Rate 64 ML/MIN 41 ML/MIN Phosphorus Level 2.8 MG/DL 4.9 MG/DL Total Protein 5.2 GM/DL Protein Corrected Calcium 7.9 MG/DL Microbiology Date/Time Source Procedure Growth Status 11/17/16 12:07 Blood Peripheral Aerobic Blood Culture - Preliminary Gram Positive Cocci Resulted 11/17/16 12:07 Blood Peripheral Anaerobic Blood Culture - Preliminary NO GROWTH IN 1 DAY Resulted 11/17/16 12:00 Blood Peripheral Aerobic Blood Culture - Preliminary Gram Positive Cocci Resulted 11/17/16 12:00 Blood Peripheral Anaerobic Blood Culture - Preliminary NO GROWTH IN 1 DAY Resulted 11/16/16 14:35 Blood Peripheral Aerobic Blood Culture - Final S. Aureus Mrsa Complete 11/16/16 14:35 Anaerobic Blood Culture - Final S. Aureus Mrsa Complete 11/16/16 14:30 Blood Peripheral Aerobic Blood Culture - Final S. Aureus Mrsa Complete 11/16/16 14:30 Anaerobic Blood Culture - Final S. Aureus Mrsa Complete 11/18/16 02:20 Sputum Endotracheal Gram Stain - Final Resulted 11/18/16 02:20 Sputum Endotracheal Sputum Culture Pending Resulted 11/18/16 03:00 Urine Catheterized Urine Urine Culture Pending Received Imaging Last Impressions Chest X-Ray 11/17/16 0000 Signed Impressions: Service Date/Time: Thursday, November 17, 2016 11:07 - CONCLUSION: Development of diffuse pulmonary infiltrates with consolidation additionally in the left lower lobe. Chencho Chaparro MD Renal Ultrasound 11/15/16 0000 Signed Impressions: Service Date/Time: Tuesday, November 15, 2016 10:26 - CONCLUSION: Normal examination. Katie Nevarez MD Chest CT 11/15/16 0000 Signed Impressions: Service Date/Time: Tuesday, November 15, 2016 09:10 - CONCLUSION: Multiple new solid and cavitary irregular nodules seen throughout the lungs bilaterally. These may represent foci of metastatic disease, however, given that these are new as compared to the prior exam of July 2016 concern is for possible septic emboli given the cavitary lesions. Small right-sided pleural effusion also favors possible infectious source. Katie Nevarez MD Physical Exam GENERAL: This is a well-nourished, well-developed patient, in mild resp distress. SKIN: No rashes, ecchymoses or lesions. Cool and dry. HEAD: Atraumatic. Normocephalic. No temporal or scalp tenderness. EYES: Pupils equal round and reactive. Extraocular motions intact. No scleral icterus. No injection or drainage. ENT: Nose without bleeding, purulent drainage or septal hematoma. NECK: Trachea midline. Supple, nontender, no meningeal signs. CARDIOVASCULAR: HS audible.? Systolic murmur. RESPIRATORY:Decreased AE in bases. GASTROINTESTINAL: Abdomen soft, non-tender, nondistended. MUSCULOSKELETAL: Extremities without clubbing, cyanosis, or edema. No joint tenderness, effusion, or edema noted. No calf tenderness. Negative Homans sign bilaterally. NEUROLOGICAL: Sedated but opens eyes and moves extremities. Psych could not be assessed. IV line sites with no evidence of infection. Assessment & Plan Remarks Septic Shock with MODS (fever, tachy, low BP, bandemia, source: lung, endocarditis) MRSA bacteremia, TV endocarditis with severe TR. Lung lesions: septic emboli most likely. Other differentials include cancer related mets. Very less likely to be fungal or TB. Acute renal failure: prerenal, sepsis. Now on HD. Acute metabolic encephalopathy: sepsis, less likely to be meningitis. Hyponatremia: Infection, metabolic, meningitis Hepatitis C positive. Recommendations: Continue Daptomycin IV (Re: Worsening clinically, resp distress, back pain, neck pain ? further dissemination). Does not cover Pneumonia. Continue Rifampin oral (cannot use Genta due to ARF) Start Teflaro (MRSA bacteremia, Cannot use Nephrotoxins plus Vanco MAHOGANY 2 and clinically failing) Start Zosyn IV (for possible HCAP) Repeat blood cultures today. Repeat sputum cultures Repeat UA with reflex to culture. CTS consult re: Severe TR. Follow cultures Follow clinically. Will need CT A/P and Brain once Cr improves. Will need Spine imaging if sepsis or new neuro deficit. Will assess clinical status. Currently resp status not stable. Plan d/w patient. Case d.w Dr. Evangelista in am, in afternoon. Time in excess of 40 mins. Critical thinking decision making. mary Clinical pharmacist. Lucille Lizama MD Nov 18, 2016 15:37
[2016-11-18] MEDS ORDERED: BUMETANIDE INJ 100 ML IV SCH (18:13)
[2016-11-18] MEDS ORDERED: PHARMACY ORDERED LAB ONE (19:45)
[2016-11-18 19:46] LABS: BICARBONATE 19.9 MEQ/L (21.0-32.0); CALCIUM-PROTEIN CORRECTED 7.7 MG/DL (8.5-10.1); POTASSIUM 4.3 MEQ/L (3.5-5.1)
[2016-11-18] MEDS: BUMETANIDE 25 MG/100 ML CONTINOUS DRIP IV SCH (21:15)
[2016-11-19] VITALS (57 sets, daily range): BP systolic 82–117; BP diastolic 53–77; PULSE 93–102; RESP 7–22; TEMP 97.6–98.8; O2SAT 95–100
[2016-11-19] MEDS: PROPOFOL 1000 MG/100 ML INJ 100 ML IV PRN ×3 (01:47→12:10)
[2016-11-19] MEDS: RESP: ALBUTEROL 2.5 MG/IPRATROPIUM 0.5 MG NEB (SCH) INH ×4 (03:16→20:48)
[2016-11-19 04:00] LABS: HEMATOCRIT 28.2 % (39.0-51.0); MEAN CELL VOLUME 78.1 FL (80.0-100.0); PLATELET COUNT 75 TH/MM3 (150-450); RED BLOOD COUNT 3.61 MIL/MM3 (4.50-5.90); RED CELL DISTRIBUTION WIDTH 16.4 % (11.6-17.2); WHITE BLOOD COUNT 18.8 TH/MM3 (4.0-11.0)
[2016-11-19] MEDS: CHLORHEXIDINE GLUCONATE 2 % 1 PACK (2 CLOTHS) TOP SCH (04:00)
[2016-11-19 04:01] LABS: REVIEW FLAG FINAL
[2016-11-19 04:40] LABS: BICARBONATE 19.5 MEQ/L (21.0-32.0); POTASSIUM 4.4 MEQ/L (3.5-5.1)
[2016-11-19] MEDS: INSULIN NovoLIN REGULAR SUPPLEMENTAL SCALE SQ SCH ×4 (05:00→23:00)
[2016-11-19 05:08] LABS: CALCIUM-PROTEIN CORRECTED 7.4 MG/DL (8.5-10.1)
[2016-11-19] MEDS: BUMETANIDE INJ 1 MG/4 ML VIAL IV PUSH SCH ×5 (06:00→23:17)
[2016-11-19] MEDS: NOREPINEPHRINE INJ 16 MG in SODIUM CHLOR 0.9% 250 ML INJ 234 ML IV PRN (07:52)
[2016-11-19] MEDS: PIPERACIL-TAZO 4.5 GM PREMIX 100 ML IV SCH ×3 (07:52→23:17)
[2016-11-19] MEDS: DOCUSATE SODIUM 50 MG/SENNA 8.6 MG TAB PO SCH ×2 (07:53→20:28)
[2016-11-19] MEDS: PANTOPRAZOLE SODIUM 40 MG VIAL IV SCH (07:53)
[2016-11-19] MEDS: RIFAMPIN 150 MG CAP PO SCH ×2 (07:53→20:28)
--- NOTE | 2016-11-19 08:13 | HHI.CCPN ---
Subjective Remarks/Hospital Course The patient is a 45-year-old male with past medical history of colon cancer on radiation treatment last session on Wednesday and has been on radiation for the past 2-3 months being followed by Dr. Harrell, his oncologist, and Dr. Galvan. He presented to [facility] emergency department with a couple of days history of shortness of breath, pleuritic chest pain with deep inspiration , dry cough and feeling nauseous. The patient denies any exposure to sick contacts. In addition, he denies any prior history of pneumonia or flu. He was found to have a temperature of 101.4 orally in the ER. In addition hewas tachycardiac with heart rate of 120s to 130s. Chest x-ray in the ER showed new bilateral mild air space opacities. The patient subsequently had CT scan of the chest which showed multiple new solid and cavitary irregular nodules seen throughout the lungs bilaterally, and small right-sided pleural effusion. His laboratory data is significant for renal failure with a creatinine level of 2.29 and hypokalemia with a potassium level of 2.8. His lactic acid level measured at 1.2. The patient also is thrombocytopenic with a platelet count of 55, however, his INR is 1.2. In the ED he was given three liters of Crystalloid in addition to cefepime, azithromycin, Tylenol and DuoNeb. When seen in the ER he was on room air oxygen with saturation 96%. However, tachycardiac with heart rate of 123 and blood pressure 154/75. He denies any vomiting, abdominal pain. 11/16 No events overnight. Patient is lying in bed in NAD. Afebrile. renal function is improving with Cr: 1.54 from 2.0. Echo from yesterday showed vegetation on TV, EF 50-55%. 11/17 Patient is lying in bed in NAD. Afebrile. 11/18: decompensated overnight. now intubated, on vasopressors, on 100% fio2 APRV with paO2 72. severe ARDS likely combination of pulmonary septic emboli combined with CHF from severe TR, however also now in septic shock. 11/19: persistently hypoxic on APRV. fio2 weaned but still requiring high Phigh in order to remain oxygenated. Cr continues to rise with minimal uop (~300cc/24h ) despite bumex drip. vasopressors continue and remains in shock. Objective Vital Signs Date Time Temp Pulse Resp B/P (MAP) Pulse Ox O2 Delivery O2 Flow Rate FiO2 11/19/16 07:52 99 108/78 11/19/16 05:15 13 97 11/19/16 04:00 40 11/19/16 04:00 97.7 11/17/16 20:45 Non-Rebreather 15.00 Intake and Output 11/19/16 11/19/16 11/20/16 08:00 16:00 00:00 Intake Total 437.5 ml Output Total 150 ml Balance 287.5 ml Result Diagram: 11/19/16 0338 11/19/16 0338 Other Results Microbiology Date/Time Source Procedure Growth Status 11/16/16 14:35 Blood Peripheral Aerobic Blood Culture - Final S. Aureus Mrsa Complete 11/16/16 14:35 Anaerobic Blood Culture - Final S. Aureus Mrsa Complete 11/16/16 14:30 Blood Peripheral Aerobic Blood Culture - Final S. Aureus Mrsa Complete 11/16/16 14:30 Anaerobic Blood Culture - Final S. Aureus Mrsa Complete Laboratory Tests Test 11/18/16 10:20 Blood Gas Puncture Site LT RADIAL Blood Gas Patient Temperature 98.6 Blood Gas HCO3 15 mmol/L (22-26) Blood Gas Base Excess -10.5 mmol/L (-2-2) Blood Gas Oxygen Saturation 97 % (90-100) Arterial Blood pH 7.29 (7.380-7.420) Arterial Blood Partial Pressure CO2 32 mmHg (38-42) Arterial Blood Partial Pressure O2 322 mmHg (61-120) Arterial Blood Oxygen Content 14.4 Vol % (12.0-20.0) Arterial Blood Carboxyhemoglobin 0.7 % (0-4) Arterial Blood Methemoglobin 1.4 % (0-2) Blood Gas Hemoglobin 9.9 G/DL (12.0-16.0) Oxygen Delivery Device VENTILATOR Blood Gas Ventilator Setting Imaging Last Impressions Chest X-Ray 11/15/16 0724 Signed Impressions: Service Date/Time: Tuesday, November 15, 2016 07:37 - CONCLUSION: New bilateral mild basilar air space opacities which may represent subsegmental atelectasis versus evolving airspace consolidation. Katie Nevarez MD Renal Ultrasound 11/15/16 0000 Signed Impressions: Service Date/Time: Tuesday, November 15, 2016 10:26 - CONCLUSION: Normal examination. Katie Nevarez MD Chest CT 11/15/16 0000 Signed Impressions: Service Date/Time: Tuesday, November 15, 2016 09:10 - CONCLUSION: Multiple new solid and cavitary irregular nodules seen throughout the lungs bilaterally. These may represent foci of metastatic disease, however, given that these are new as compared to the prior exam of July 2016 concern is for possible septic emboli given the cavitary lesions. Small right-sided pleural effusion also favors possible infectious source. Katie Nevarez MD Objective Remarks GENERAL: middle-aged male, lying in bed, intubated, sedated, critically ill. SKIN: cool, poorly perfused HEAD: Normocephalic. EYES: No scleral icterus. No injection or drainage. NECK: trachea midline. +JVD CARDIOVASCULAR: Tachycardic, regular rhythm. sinus by tele. Bedside critical care ultrasound: hyperdynamic LV function, RV dilated, preserved function, flattening of the intraventricular septum throughout the cardiac cycle suggestive of RV volume overload. dilated IVC without respiratory variation. RESPIRATORY: bilateral coarse breath sounds in all lung thomas. intubated. APRV 40% fio2, 28/0 I:E 8:1 GASTROINTESTINAL: Abdomen soft, non-tender, nondistended. MUSCULOSKELETAL: No cyanosis, or edema. Neuro: RASS -2, sedated. follows commands. 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 continues to be critically ill, off pathway. will increase forced diuresis despite ongoing shock, and if no significant uop, may be forced to pursue renal replacement therapy. poor prognosis. Plan Neuro: Metabolic encephalopathy - propofol, fentanyl for goal RASS -2. will need to keep deeply sedated to improve vent synchrony and prevent worsening hypoxemia. - no sedation vacation today Pulm: Acute hypoxic and hypercarbic respiratory failure Septic pulmonary emboli Pulmonary Edema Severe ARDS - intubated 11/18 for worsening hypoxemia - no sbt today given instability - continue APRV, drop and stretch today to 28/0 and 8:1 - wean fio2 for spo2 > 90% - nebs - vent bundle - will be forced to diurese despite ongoing shock. - 11/15 CT chest showed cavitary and irregular nodules throughout the lungs bilaterally. CV: Septic Shock Congestive Heart Failure Exacerbation secondary to valvulopathy Severe tricuspid regurgitation Pulmonary Edema - hold cardizem - quad concentrate levo - continue vasopressin - diurese despite shock to preserve pulmonary function and optimize cardiac function. - Echo showed EF 50-55%, +Vegetations on TV, severe TR : Oliguric Acute kidney injury- worsening Intravascular volume overload - renal injury secondary to shock and CHF - will be forced to diurese despite shock - bumex drip: increase to 2mg/hr - add iv diuril, diamox, spironolactone - strict i/os FEN/GI: Acute protein calorie malnutrition- moderate Anion-gap metabolic acidosis Intravascular volume overload Colon cancer on radiation treatment Hepatitis C - hold TF and NPO while in shock - ICU electrolyte protocol - diuresis as above. ID: MRSA Tricuspid Valve infective endocarditis Septic Shock - ID on board - continue daptomycin - Echo showed vegetations on TV. - 11/15 BC: MRSA, GPC, 11/16 BC: NGTD - 11/15 Urine cx: MRSA Heme: Anemia secondary to chronic illness Thrombocytopenia secondary to hepatic dysfunction - daily cbc - low probability HIT - no indication for transfusion at this time. Endo: Hyperglycemia of critical illness - SSI with Accu-Cheks for glycemic control. GI prophylaxis with Protonix 40 milligrams daily and DVT prophylaxis with SCDs. Not on chemical anticoagulation prophylaxis due to thrombocytopenia. Dispo: remain in ICU. very critically ill. This patient remains critically ill with one or more organ systems which are or may become a threat to life. I have spent in excess of 56 minutes discontinuously in the care and management of this patient. This time is exclusive of procedures, and includes, but is not limited to, evaluation of the patient, review of the medical record, discussions with family, consultants, nursing staff, or respiratory therapy, and documentation in the medical record. Omer Justin MD Nov 19, 2016 08:13
[2016-11-19] MEDS ORDERED: SPIRONOLACTONE 25 MG TAB PO ONE (09:00)
[2016-11-19] MEDS: CEFTAROLINE INJ 600 MG in SODIUM CHLORIDE 0.9% INJ 100 ML IV SCH (09:02)
[2016-11-19] MEDS ORDERED: CHLOROTHIAZIDE SOD 500 MG VIAL IV ONE (09:15)
--- NOTE | 2016-11-19 10:33 | HHI.IDPN ---
Subjective Subjective Remarks is a 45 y/o CM with history of Rectal Cancer (Invasive moderately differentiated Adenocarcinoma with no prior lung or distant mets), and has no port or PICC line and has been receiving oral chemotherapy. Patient is followed by Dr. Vielka Harrell. Patient also sees colorectal surgeon and has undergone colonoscopy but no definite surgery. Patient also has been seeing Dr. Santana radiation oncologist and has been undergoing radiation therapy. Reportedly, the patient's last radiation therapy was on Wednesday before admission. PMHx: Patient initially presented with lower abdominal pain in January 2016. Next patient presented in April 2016 with lower abdominal pain brought in by [facility] with rectal bleeding from a [facility]. Patient was referred to Dr. Galvan colorectal surgeon. Patient was again seen in July 2016 for ongoing rectal bleeding for several months and underwent a colonoscopy which showed invasive moderately differentiated adenocarcinoma. Multiple consultants were involved and the determination was made that he did not have any lung or any other distant metastasis. Patient was eventually placed on chemotherapy and radiation therapy. Patient's mother reports that he has not been compliant with his oral chemotherapy regimen. It appears that he does comply with radiation therapy. With this background patient presents to [facility] emergency department accompanied with his mother. Patient's temperature on admission was 100 and later increased to 101.4, heart rate was 142, blood pressure 107/63 63 on presentation and currently is 157/77. Lactic acid normal. His white count on admission was 9.2 H&H 9.8/28, platelets 55, sodium 1:30, potassium 2.8, creatinine 2.29. Sepsis workup was initiated on admission and blood cultures are pending. Urine and other studies are pending. UA appears to be abnormal. Patient underwent chest x-ray which was suggestive of bilateral pneumonia. Given his history of being immune compromised patient underwent a CT of the chest which shows bilateral cavitary lesions which is suggestive of possible septic emboli. In the emergency department patient received 1 dose of cefepime as well as azithromycin and was subsequently switched to Zosyn, azithromycin and vancomycin IV. Infectious disease was consulted for the management of sepsis, pneumonia in an immune compromised patient. Overnight events reviewed. Intubated overnight. On Levophed and Vasopressin reduced requirements today. FiO2 reduced to 40%, On Biphasic mode. UO not much. On diuretics. Possible need for HD later today if no improvement in urine output. Secretions small, white to jacobs. No rash No diarrhea Moves all 4 extremities. Antibiotics Dapto IV Teflaro IV Zosyn IV Rifampin Lines Line sites with no e.o infection. Past Medical History reviewed. Allergies: Coded Allergies: No Known Allergies (Unverified , 11/15/16) Objective . Vital Signs Date Time Temp Pulse Resp B/P (MAP) Pulse Ox O2 Delivery O2 Flow Rate FiO2 11/19/16 08:14 99 40 11/19/16 08:00 102 11/19/16 07:52 99 108/78 11/19/16 06:00 98 11/19/16 05:15 98 13 104/71 (82) 97 11/19/16 05:00 99 13 103/71 (82) 97 11/19/16 04:45 99 14 100/69 (79) 97 11/19/16 04:31 98 11 100/67 (78) 97 11/19/16 04:15 98 13 94/67 (76) 97 11/19/16 04:02 101 15 92/61 (71) 98 11/19/16 04:00 40 11/19/16 04:00 101 11/19/16 04:00 97.7 101 13 96 11/19/16 03:45 100 11 109/69 (82) 98 11/19/16 03:30 98 10 105/68 (80) 97 11/19/16 03:17 98 50 11/19/16 03:15 97 10 107/71 (83) 98 11/19/16 03:00 97 10 100/67 (78) 98 11/19/16 02:45 97 13 105/72 (83) 98 11/19/16 02:30 98 13 109/71 (84) 98 11/19/16 02:15 98 12 107/70 (82) 98 11/19/16 02:00 97 13 103/66 (78) 98 11/19/16 02:00 97 11/19/16 01:45 98 21 110/67 (81) 100 11/19/16 01:30 98 13 117/77 (90) 100 11/19/16 01:15 95 14 103/76 (85) 100 11/19/16 01:00 96 10 101/76 (84) 100 11/19/16 00:45 93 10 104/76 (85) 99 11/19/16 00:44 99 60 11/19/16 00:30 95 10 97/69 (78) 98 11/19/16 00:15 94 10 102/72 (82) 98 11/19/16 00:00 50 11/19/16 00:00 97.7 94 10 103/72 (82) 99 11/19/16 00:00 94 11/18/16 23:45 94 10 103/68 (80) 98 11/18/16 23:30 95 10 108/65 (79) 98 11/18/16 23:15 96 10 112/74 (87) 98 11/18/16 23:06 97 118/74 11/18/16 23:00 97 10 118/74 (89) 98 11/18/16 22:45 98 10 113/71 (85) 98 11/18/16 22:30 97 10 109/79 (89) 99 11/18/16 22:15 96 22 126/90 (102) 100 11/18/16 22:00 94 11/18/16 22:00 94 21 122/90 (101) 100 11/18/16 21:53 98 60 11/18/16 21:45 93 10 122/82 (95) 99 11/18/16 21:30 92 14 121/85 (97) 100 11/18/16 21:15 95 10 106/80 (89) 98 11/18/16 21:00 96 10 112/78 (89) 98 11/18/16 20:45 99 10 109/75 (86) 98 11/18/16 20:30 98 12 104/75 (85) 98 11/18/16 20:15 100 10 114/75 (88) 98 11/18/16 20:00 97.7 101 14 110/71 (84) 100 11/18/16 20:00 101 11/18/16 20:00 60 11/18/16 19:46 100 60 11/18/16 19:45 96 19 131/92 (105) 100 11/18/16 19:30 93 20 120/90 (100) 100 11/18/16 19:15 94 20 118/83 (95) 100 11/18/16 19:00 90 112/73 11/18/16 19:00 90 10 112/73 (86) 100 11/18/16 18:18 90 109/73 11/18/16 18:00 92 109/73 11/18/16 17:18 101 105/68 11/18/16 17:00 101 105/68 11/18/16 16:00 97.6 98 10 104/71 (82) 99 11/18/16 16:00 98 104/71 11/18/16 16:00 75 11/18/16 15:57 99 75 11/18/16 15:00 100 94/63 11/18/16 14:00 97 97/69 11/18/16 13:04 99 75 11/18/16 13:00 96 92/65 11/18/16 12:30 96 104/68 11/18/16 12:00 90 11/18/16 12:00 95 103/67 11/18/16 12:00 95 103/67 11/18/16 12:00 97.3 95 10 103/67 (79) 99 11/18/16 11:45 93 100/64 11/18/16 11:20 91 110/71 11/18/16 11:16 92 109/76 11/18/16 11:00 92 109/76 11/18/16 10:31 92 119/83 11/19/16 11/19/16 11/20/16 14:59 22:59 06:59 Intake Total 255 ml Output Total 50 ml Balance 205 ml IV Total 255 ml Output Urine Total 50 ml . Laboratory Tests Test 11/18/16 06:00 11/19/16 03:38 White Blood Count 17.6 TH/MM3 18.8 TH/MM3 Red Blood Count 3.22 MIL/MM3 3.61 MIL/MM3 Hemoglobin 8.3 GM/DL 9.0 GM/DL Hematocrit 25.2 % 28.2 % Mean Corpuscular Volume 78.3 FL 78.1 FL Mean Corpuscular Hemoglobin 25.9 PG 25.0 PG Mean Corpuscular Hemoglobin Concent 33.0 % 32.0 % Red Cell Distribution Width 16.1 % 16.4 % Platelet Count 58 TH/MM3 75 TH/MM3 Mean Platelet Volume 8.9 FL 8.9 FL Neutrophils (%) (Auto) 95.5 % Lymphocytes (%) (Auto) 1.2 % Monocytes (%) (Auto) 3.1 % Eosinophils (%) (Auto) 0.1 % Basophils (%) (Auto) 0.1 % Neutrophils # (Auto) 16.8 TH/MM3 Lymphocytes # (Auto) 0.2 TH/MM3 Monocytes # (Auto) 0.6 TH/MM3 Eosinophils # (Auto) 0.0 TH/MM3 Basophils # (Auto) 0.0 TH/MM3 CBC Comment AUTO DIFF Differential Comment AUTO DIFF CONFIRMED Platelet Estimate LOW Platelet Morphology Comment NORMAL Ovalocytes 1+ Laboratory Tests Test 11/18/16 06:00 11/18/16 18:35 11/19/16 03:38 Blood Urea Nitrogen 35 MG/DL 51 MG/DL 62 MG/DL Creatinine 1.83 MG/DL 2.65 MG/DL 3.00 MG/DL Random Glucose 114 MG/DL 184 MG/DL 193 MG/DL Total Protein 5.2 GM/DL 5.9 GM/DL 6.3 GM/DL Calcium Level 6.9 MG/DL 7.1 MG/DL 7.0 MG/DL Phosphorus Level 4.9 MG/DL Sodium Level 140 MEQ/L 139 MEQ/L 139 MEQ/L Potassium Level 4.0 MEQ/L 4.3 MEQ/L 4.4 MEQ/L Chloride Level 108 MEQ/L 107 MEQ/L 106 MEQ/L Carbon Dioxide Level 20.3 MEQ/L 19.9 MEQ/L 19.5 MEQ/L Anion Gap 12 MEQ/L 12 MEQ/L 14 MEQ/L Estimat Glomerular Filtration Rate 41 ML/MIN 26 ML/MIN 23 ML/MIN Protein Corrected Calcium 7.9 MG/DL 7.7 MG/DL 7.4 MG/DL Albumin 1.4 GM/DL Alkaline Phosphatase 133 U/L Aspartate Amino Transf (AST/SGOT) 26 U/L Alanine Aminotransferase (ALT/SGPT) 16 U/L Total Bilirubin 3.0 MG/DL Microbiology Date/Time Source Procedure Growth Status 11/18/16 16:45 Blood Peripheral Aerobic Blood Culture Pending Received 11/18/16 16:45 Blood Peripheral Anaerobic Blood Culture Pending Received 11/18/16 16:30 Blood Peripheral Aerobic Blood Culture Pending Received 11/18/16 16:30 Blood Peripheral Anaerobic Blood Culture Pending Received 11/17/16 12:07 Blood Peripheral Aerobic Blood Culture - Preliminary Gram Positive Cocci Resulted 11/17/16 12:07 Blood Peripheral Anaerobic Blood Culture - Preliminary NO GROWTH IN 1 DAY Resulted 11/17/16 12:00 Blood Peripheral Aerobic Blood Culture - Preliminary Gram Positive Cocci Resulted 11/17/16 12:00 Blood Peripheral Anaerobic Blood Culture - Preliminary NO GROWTH IN 1 DAY Resulted 11/16/16 14:35 Blood Peripheral Aerobic Blood Culture - Final S. Aureus Mrsa Complete 11/16/16 14:35 Anaerobic Blood Culture - Final S. Aureus Mrsa Complete 11/16/16 14:30 Blood Peripheral Aerobic Blood Culture - Final S. Aureus Mrsa Complete 11/16/16 14:30 Anaerobic Blood Culture - Final S. Aureus Mrsa Complete 11/18/16 02:20 Sputum Endotracheal Gram Stain - Final Resulted 11/18/16 02:20 Sputum Endotracheal Sputum Culture Pending Resulted 11/18/16 03:00 Urine Catheterized Urine Urine Culture Pending Received Imaging Last Impressions Chest X-Ray 11/17/16 0000 Signed Impressions: Service Date/Time: Thursday, November 17, 2016 11:07 - CONCLUSION: Development of diffuse pulmonary infiltrates with consolidation additionally in the left lower lobe. Chencho Chaparro MD Renal Ultrasound 11/15/16 0000 Signed Impressions: Service Date/Time: Tuesday, November 15, 2016 10:26 - CONCLUSION: Normal examination. Katie Nevarez MD Chest CT 11/15/16 0000 Signed Impressions: Service Date/Time: Tuesday, November 15, 2016 09:10 - CONCLUSION: Multiple new solid and cavitary irregular nodules seen throughout the lungs bilaterally. These may represent foci of metastatic disease, however, given that these are new as compared to the prior exam of July 2016 concern is for possible septic emboli given the cavitary lesions. Small right-sided pleural effusion also favors possible infectious source. Katie Nevarez MD Physical Exam GENERAL: This is a well-nourished, well-developed patient, in mild resp distress. SKIN: No rashes, ecchymoses or lesions. Cool and dry. HEAD: Atraumatic. Normocephalic. No temporal or scalp tenderness. EYES: Pupils equal round and reactive. Extraocular motions intact. No scleral icterus. No injection or drainage. ENT: Nose without bleeding, purulent drainage or septal hematoma. NECK: Trachea midline. Supple, nontender, no meningeal signs. CARDIOVASCULAR: HS audible.? Systolic murmur. RESPIRATORY: Decreased AE in bases. GASTROINTESTINAL: Abdomen soft, non-tender, nondistended. MUSCULOSKELETAL: Extremities without clubbing, cyanosis, or edema. No joint tenderness, effusion, or edema noted. No calf tenderness. Negative Homans sign bilaterally. NEUROLOGICAL: Sedated but opens eyes and moves extremities. Psych could not be assessed. IV line sites with no evidence of infection. Assessment & Plan Remarks Septic Shock with MODS (fever, tachy, low BP, bandemia, source: lung, endocarditis) MRSA bacteremia, TV endocarditis with severe TR. Lung lesions: septic emboli most likely. Other differentials include cancer related mets. Very less likely to be fungal or TB. Acute renal failure: prerenal, sepsis. Now on HD. Acute metabolic encephalopathy: sepsis, less likely to be meningitis. Hyponatremia: Infection, metabolic, meningitis Hepatitis C positive. Recommendations: Continue Daptomycin IV (Re: Worsening clinically, resp distress, back pain, neck pain ? further dissemination). Does not cover Pneumonia. Continue Rifampin oral (cannot use Genta due to ARF) Continue Teflaro IV (MRSA bacteremia, Cannot use Nephrotoxins plus Vanco MAHOGANY 2 and clinically failing) Continue Zosyn IV (for possible HCAP) Follow cultures Follow clinically. Will need CT A/P and Brain at some point. Will d.w Nephrology if he gets placed on HD. Will hold off on spine imaging for now as no neurological change at present time due to acute renal failure and possible placement on HD. Plan d/w RN Time in excess of 40 mins. Critical thinking decision making. d.w Clinical pharmacist about renal dose adjustment for Teflaro. d/w patients mother about ID issues. She tells me patient indirectly told her about relapse to IVDA. She is aware of diagnosis of endocarditis, septic pulm emboli and Severe TR. Lucille Lizama MD Nov 19, 2016 10:33
[2016-11-19] MEDS: VASOPRESSIN INJ 40 UNITS in DEXTROSE 5% IN WATER 100ML INJ 98 ML IV SCH ×2 (12:03)
[2016-11-19] MEDS: BUMETANIDE 25 MG/100 ML CONTINOUS DRIP IV SCH ×2 (12:03→23:17)
[2016-11-19] MEDS: SODIUM CHLORIDE 0.9% IV SCH (12:04)
[2016-11-19] MEDS: DAPTOMYCIN IV SCH (12:04)
[2016-11-19] MEDS: CEFTAROLINE INJ 400 MG in SODIUM CHLORIDE 0.9% INJ 100 ML IV SCH ×2 (17:34→23:18)
[2016-11-19] MEDS: fentaNYL 2,500 MCG/NS 250 ML IV PRN (19:30)
[2016-11-19] MEDS: PROPOFOL 1000 MG/100 ML IV PRN (21:09)
[2016-11-20] VITALS (35 sets, daily range): BP systolic 79–126; BP diastolic 42–69; PULSE 100–117; RESP 7–29; TEMP 97.9–98.4; O2SAT 91–100
[2016-11-20] MEDS: PROPOFOL 1000 MG/100 ML IV PRN ×5 (02:04→23:22)
[2016-11-20] MEDS: RESP: ALBUTEROL 2.5 MG/IPRATROPIUM 0.5 MG NEB (SCH) INH ×4 (03:48→20:58)
[2016-11-20] MEDS: CHLORHEXIDINE GLUCONATE 2 % 1 PACK (2 CLOTHS) TOP SCH (04:00)
[2016-11-20 04:07] LABS: HEMATOCRIT 28.1 % (39.0-51.0); MEAN CELL VOLUME 79.6 FL (80.0-100.0); MEAN CORPUSCULAR HEMOGLOBIN 25.8 PG (27.0-34.0); MEAN CORPUSCULAR HGB CONC 32.4 % (32.0-36.0); PLATELET COUNT 121 TH/MM3 (150-450); RED BLOOD COUNT 3.53 MIL/MM3 (4.50-5.90); RED CELL DISTRIBUTION WIDTH 16.9 % (11.6-17.2); REVIEW FLAG FINAL; WHITE BLOOD COUNT 21.4 TH/MM3 (4.0-11.0)
[2016-11-20 04:17] LABS: APTT (PATIENT) 33.4 SEC (24.3-30.1); INTERNATIONAL NORMALIZED RATIO 1.1 RATIO; PROTHROMBIN TIME - PATIENT 12.6 SEC (9.8-11.6)
[2016-11-20] MEDS: INSULIN NovoLIN REGULAR SUPPLEMENTAL SCALE SQ SCH ×4 (04:25→23:00)
[2016-11-20] MEDS: BUMETANIDE INJ 1 MG/4 ML VIAL IV PUSH SCH (04:25)
[2016-11-20 04:42] LABS: BICARBONATE 18.7 MEQ/L (21.0-32.0); POTASSIUM 4.9 MEQ/L (3.5-5.1)
[2016-11-20 04:44] LABS: INDIRECT BILIRUBIN 0.4 MG/DL (0.0-0.8); TOTAL BILIRUBIN ADULT 2.6 MG/DL (0.2-1.0)
[2016-11-20 05:08] LABS: CALCIUM-PROTEIN CORRECTED 6.8 MG/DL (8.5-10.1)
[2016-11-20] MEDS ORDERED: CHLOROTHIAZIDE SOD 500 MG VIAL IV ONE (06:30)
[2016-11-20] MEDS ORDERED: ALBUMIN HUMAN 25% 25 GM/100 ML BAGP IV ONE (06:30)
[2016-11-20] MEDS: fentaNYL 2,500 MCG/NS 250 ML IV PRN ×2 (07:18→18:26)
--- NOTE | 2016-11-20 08:22 | HHI.CCPN ---
Subjective Remarks/Hospital Course The patient is a 45-year-old male with past medical history of colon cancer on radiation treatment last session on Wednesday and has been on radiation for the past 2-3 months being followed by Dr. Harrell, his oncologist, and Dr. Galvan. He presented to [facility] emergency department with a couple of days history of shortness of breath, pleuritic chest pain with deep inspiration , dry cough and feeling nauseous. The patient denies any exposure to sick contacts. In addition, he denies any prior history of pneumonia or flu. He was found to have a temperature of 101.4 orally in the ER. In addition hewas tachycardiac with heart rate of 120s to 130s. Chest x-ray in the ER showed new bilateral mild air space opacities. The patient subsequently had CT scan of the chest which showed multiple new solid and cavitary irregular nodules seen throughout the lungs bilaterally, and small right-sided pleural effusion. His laboratory data is significant for renal failure with a creatinine level of 2.29 and hypokalemia with a potassium level of 2.8. His lactic acid level measured at 1.2. The patient also is thrombocytopenic with a platelet count of 55, however, his INR is 1.2. In the ED he was given three liters of Crystalloid in addition to cefepime, azithromycin, Tylenol and DuoNeb. When seen in the ER he was on room air oxygen with saturation 96%. However, tachycardiac with heart rate of 123 and blood pressure 154/75. He denies any vomiting, abdominal pain. 11/16 No events overnight. Patient is lying in bed in NAD. Afebrile. renal function is improving with Cr: 1.54 from 2.0. Echo from yesterday showed vegetation on TV, EF 50-55%. 11/17 Patient is lying in bed in NAD. Afebrile. 11/18: decompensated overnight. now intubated, on vasopressors, on 100% fio2 APRV with paO2 72. severe ARDS likely combination of pulmonary septic emboli combined with CHF from severe TR, however also now in septic shock. 11/19: persistently hypoxic on APRV. fio2 weaned but still requiring high Phigh in order to remain oxygenated. Cr continues to rise with minimal uop (~300cc/24h ) despite bumex drip. vasopressors continue and remains in shock. 11/20 Patient is sedated with Diprivan, Fentanyl and intubated. On Levophed 8 mics and Vasopressin 0.04 mics. Afebrile. On Bumex drip. Objective Vital Signs Date Time Temp Pulse Resp B/P (MAP) Pulse Ox O2 Delivery O2 Flow Rate FiO2 11/20/16 06:00 104 11/20/16 04:16 94 40 11/20/16 04:15 8 96/59 (71) 11/20/16 04:00 98.0 11/17/16 20:45 Non-Rebreather 15.00 Intake and Output 11/20/16 11/20/16 11/21/16 08:00 16:00 00:00 Intake Total 637.4 ml Output Total 351 ml Balance 286.4 ml Result Diagram: 11/20/16 0343 11/20/16 0343 Other Results Laboratory Tests Test 11/20/16 03:43 White Blood Count 21.4 TH/MM3 Red Blood Count 3.53 MIL/MM3 Hemoglobin 9.1 GM/DL Hematocrit 28.1 % Mean Corpuscular Volume 79.6 FL Mean Corpuscular Hemoglobin 25.8 PG Mean Corpuscular Hemoglobin Concent 32.4 % Red Cell Distribution Width 16.9 % Platelet Count 121 TH/MM3 Mean Platelet Volume 9.0 FL Prothrombin Time 12.6 SEC Prothromb Time International Ratio 1.1 RATIO Activated Partial Thromboplast Time 33.4 SEC Blood Urea Nitrogen 83 MG/DL Creatinine 3.81 MG/DL Random Glucose 98 MG/DL Total Protein 6.8 GM/DL Calcium Level 6.6 MG/DL Sodium Level 137 MEQ/L Potassium Level 4.9 MEQ/L Chloride Level 105 MEQ/L Carbon Dioxide Level 18.7 MEQ/L Anion Gap 13 MEQ/L Estimat Glomerular Filtration Rate 17 ML/MIN Protein Corrected Calcium 6.8 MG/DL Total Bilirubin 2.6 MG/DL Direct Bilirubin 2.2 MG/DL Indirect Bilirubin 0.4 MG/DL Aspartate Amino Transf (AST/SGOT) 122 U/L Alanine Aminotransferase (ALT/SGPT) 47 U/L Alkaline Phosphatase 119 U/L Albumin 1.6 GM/DL Imaging Last Impressions Chest X-Ray 11/18/16 0000 Signed Impressions: Service Date/Time: Friday, November 18, 2016 01:44 - CONCLUSION: 1. Endotracheal tube and right subclavian central line in appropriate position. Nasogastric tube could be advanced. 2. Severe bilateral nodular airspace consolidation, increased from yesterday's examination. There is a small right pleural effusion. Manolo Bernal MD Renal Ultrasound 11/15/16 0000 Signed Impressions: Service Date/Time: Tuesday, November 15, 2016 10:26 - CONCLUSION: Normal examination. Katie Nevarez MD Chest CT 11/15/16 0000 Signed Impressions: Service Date/Time: Tuesday, November 15, 2016 09:10 - CONCLUSION: Multiple new solid and cavitary irregular nodules seen throughout the lungs bilaterally. These may represent foci of metastatic disease, however, given that these are new as compared to the prior exam of July 2016 concern is for possible septic emboli given the cavitary lesions. Small right-sided pleural effusion also favors possible infectious source. Katie Nevarez MD Objective Remarks GENERAL: middle-aged male, lying in bed, intubated, sedated, critically ill. SKIN: cool, poorly perfused HEAD: Normocephalic. EYES: No scleral icterus. No injection or drainage. NECK: trachea midline. +JVD CARDIOVASCULAR: Tachycardic, regular rhythm. sinus by tele. Bedside critical care ultrasound: hyperdynamic LV function, RV dilated, preserved function, flattening of the intraventricular septum throughout the cardiac cycle suggestive of RV volume overload. dilated IVC without respiratory variation. RESPIRATORY: bilateral coarse breath sounds in all lung thomas. intubated. APRV 40% fio2, 28/0 I:E 8:1 GASTROINTESTINAL: Abdomen soft, non-tender, nondistended. MUSCULOSKELETAL: No cyanosis, or edema. Neuro: RASS -2, sedated. follows commands. 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 continues to be critically ill, ongoing shock and renal failure. poor prognosis. Plan Neuro: Metabolic encephalopathy - propofol, fentanyl for goal RASS -2. -Sedation vacation when appropriate -UDS: Opiates, Cocaine -Check CT brain Pulm: Acute hypoxic and hypercarbic respiratory failure Septic pulmonary emboli Pulmonary Edema Severe ARDS - intubated 11/18 for worsening hypoxemia - Continue with vent support keep sat >92%. Change vent ACV with RR 14, TV 500, PEEP: 5 and FIO2 40% -Check ABG/CXR -Bronchodilators, ICU vent bundle. - 11/15 CT chest showed cavitary and irregular nodules throughout the lungs bilaterally. CV: Septic Shock Congestive Heart Failure Exacerbation secondary to valvulopathy Severe tricuspid regurgitation Pulmonary Edema - Wean off pressors as isadora ( Levophed, Vasopressin) keep MAP>65mmHg - Echo showed EF 50-55%, +Vegetations on TV, severe TR : RACHEL Intravascular volume overload - Monitor renal function, I/O's, avoid nephrotoxins -Renal function is worsening today with Cr: 3.8 from 3.0, UOP: 1800ml in 24 hrs , decrease Bumex 1mg/hr -Renal eval. Renal US 11/15: Unremarkable. FEN/GI: Acute protein calorie malnutrition- moderate Anion-gap metabolic acidosis Intravascular volume overload Colon cancer on radiation treatment Hepatitis C Start tube feeds- Nepro with goal rate 40ml/hr Protonix 40mg IV daily for GI prophylaxis ID: MRSA Tricuspid Valve infective endocarditis Septic Shock - ID on board - Continue abx per ID ( On daptomycin, Rifampin, Zosyn, Teflaro) check CK. - Echo showed vegetations on TV. - 11/15, 11/16, 09/17 BC: MRSA, 11/18 BC: NGTD - 11/15 Urine cx: MRSA, 11/18 sputum: MRSA: -Will recheck CT chest and get CT abd/pelvis- discussed with ID Heme: Anemia secondary to chronic illness Thrombocytopenia secondary to hepatic dysfunction - Monitor CBC - no indication for transfusion at this time. Endo: Hyperglycemia of critical illness - SSI with Accu-Cheks for glycemic control. GI prophylaxis with Protonix 40 milligrams daily and DVT prophylaxis with SCDs. Not on chemical anticoagulation prophylaxis due to thrombocytopenia. Dispo: remain in ICU. very critically ill. Lines: Right subclavian CVP placed 11/18 CCT 30 mins Efrain Ortiz MD Nov 20, 2016 08:22
--- NOTE | 2016-11-20 08:39 | HHI.IDPN ---
Subjective Subjective Remarks is a 45 y/o CM with history of Rectal Cancer (Invasive moderately differentiated Adenocarcinoma with no prior lung or distant mets), and has no port or PICC line and has been receiving oral chemotherapy. Patient is followed by Dr. Vielka Harrell. Patient also sees colorectal surgeon and has undergone colonoscopy but no definite surgery. Patient also has been seeing Dr. Santana radiation oncologist and has been undergoing radiation therapy. Reportedly, the patient's last radiation therapy was on Wednesday before admission. PMHx: Patient initially presented with lower abdominal pain in January 2016. Next patient presented in April 2016 with lower abdominal pain brought in by [facility] with rectal bleeding from a [facility]. Patient was referred to Dr. Galvan colorectal surgeon. Patient was again seen in July 2016 for ongoing rectal bleeding for several months and underwent a colonoscopy which showed invasive moderately differentiated adenocarcinoma. Multiple consultants were involved and the determination was made that he did not have any lung or any other distant metastasis. Patient was eventually placed on chemotherapy and radiation therapy. Patient's mother reports that he has not been compliant with his oral chemotherapy regimen. It appears that he does comply with radiation therapy. With this background patient presents to [facility] emergency department accompanied with his mother. Patient's temperature on admission was 100 and later increased to 101.4, heart rate was 142, blood pressure 107/63 63 on presentation and currently is 157/77. Lactic acid normal. His white count on admission was 9.2 H&H 9.8/28, platelets 55, sodium 1:30, potassium 2.8, creatinine 2.29. Sepsis workup was initiated on admission and blood cultures are pending. Urine and other studies are pending. UA appears to be abnormal. Patient underwent chest x-ray which was suggestive of bilateral pneumonia. Given his history of being immune compromised patient underwent a CT of the chest which shows bilateral cavitary lesions which is suggestive of possible septic emboli. In the emergency department patient received 1 dose of cefepime as well as azithromycin and was subsequently switched to Zosyn, azithromycin and vancomycin IV. Infectious disease was consulted for the management of sepsis, pneumonia in an immune compromised patient. Overnight events reviewed. On Levophed 8 mics, Vasopressin 0.04. CCM Plan to reduce requirements and taper off today. FiO2 reduced to 40%, PEEP 5. UO not much. On diuretics. Cr increased further. Secretions small, white to jacobs. No rash No diarrhea. Had 1 BM. Sedated. d.w [facility] to try sedation vacation to assess for neuro deficit. Antibiotics Dapto IV Teflaro IV Zosyn IV Rifampin Lines Line sites with no e.o infection. Past Medical History reviewed. Allergies: Coded Allergies: No Known Allergies (Unverified , 11/15/16) Objective . Vital Signs Date Time Temp Pulse Resp B/P (MAP) Pulse Ox O2 Delivery O2 Flow Rate FiO2 11/20/16 08:02 94 40 11/20/16 07:53 91 40 11/20/16 06:00 104 11/20/16 04:16 94 40 11/20/16 04:15 106 8 96/59 (71) 94 11/20/16 04:00 40 11/20/16 04:00 104 11/20/16 04:00 98.0 104 7 96/58 (71) 94 11/20/16 03:45 104 8 93/55 (68) 94 11/20/16 03:30 103 8 92/55 (67) 94 11/20/16 03:15 101 11 88/53 (65) 94 11/20/16 03:00 101 8 92/55 (67) 95 11/20/16 02:45 101 8 93/53 (66) 95 11/20/16 02:30 101 8 87/52 (64) 96 11/20/16 02:15 102 8 86/53 (64) 96 11/20/16 02:00 101 8 92/53 (66) 95 11/20/16 02:00 101 11/20/16 01:45 100 8 89/52 (64) 95 11/20/16 01:30 100 11 89/53 (65) 96 11/20/16 01:19 95 40 11/20/16 01:15 101 8 88/51 (63) 95 11/20/16 01:00 101 8 92/52 (65) 94 11/20/16 00:45 101 8 84/52 (63) 95 11/20/16 00:30 101 8 85/53 (64) 96 11/20/16 00:15 101 8 86/50 (62) 95 11/20/16 00:00 97.9 101 8 84/53 (63) 95 11/20/16 00:00 40 11/20/16 00:00 101 11/19/16 23:46 101 8 88/53 (65) 95 11/19/16 23:45 101 8 82/53 (63) 96 11/19/16 23:30 96 40 11/19/16 23:30 101 8 88/57 (67) 96 11/19/16 23:15 101 8 87/57 (67) 95 11/19/16 23:00 101 8 95/55 (68) 96 11/19/16 22:45 101 8 108/61 (77) 95 11/19/16 22:30 100 9 97/54 (68) 96 11/19/16 22:15 101 7 100/57 (71) 96 11/19/16 22:00 101 9 89/57 (68) 95 11/19/16 22:00 101 11/19/16 21:45 101 8 94/56 (69) 96 11/19/16 21:30 101 8 98/59 (72) 96 11/19/16 21:15 100 8 98/61 (73) 96 11/19/16 21:00 99 8 98/60 (73) 95 11/19/16 20:51 96 40 11/19/16 20:45 99 8 88/54 (65) 96 11/19/16 20:30 99 7 92/60 (71) 96 11/19/16 20:15 100 8 89/57 (68) 95 11/19/16 20:00 100 11/19/16 20:00 97.6 100 9 89/56 (67) 96 11/19/16 20:00 40 11/19/16 19:45 99 9 90/58 (69) 96 11/19/16 19:30 100 8 88/57 (67) 96 11/19/16 19:15 100 8 89/57 (68) 95 11/19/16 19:00 100 8 92/58 (69) 96 11/19/16 18:00 100 11/19/16 17:11 100 92/64 11/19/16 16:00 40 11/19/16 16:00 98 11/19/16 16:00 98.8 98 13 97/60 (72) 96 11/19/16 15:37 96 40 11/19/16 14:00 97 11/19/16 12:03 101 105/62 11/19/16 12:00 40 11/19/16 12:00 101 11/19/16 12:00 98.4 101 20 93/66 (75) 96 11/19/16 10:50 107 136/71 11/19/16 10:46 98 40 11/19/16 10:00 101 11/19/16 09:02 98 128/80 11/20/16 11/20/16 11/21/16 14:59 22:59 06:59 Intake Total 239 ml Balance 239 ml IV Total 239 ml . Laboratory Tests Test 11/19/16 03:38 11/20/16 03:43 White Blood Count 18.8 TH/MM3 21.4 TH/MM3 Red Blood Count 3.61 MIL/MM3 3.53 MIL/MM3 Hemoglobin 9.0 GM/DL 9.1 GM/DL Hematocrit 28.2 % 28.1 % Mean Corpuscular Volume 78.1 FL 79.6 FL Mean Corpuscular Hemoglobin 25.0 PG 25.8 PG Mean Corpuscular Hemoglobin Concent 32.0 % 32.4 % Red Cell Distribution Width 16.4 % 16.9 % Platelet Count 75 TH/MM3 121 TH/MM3 Mean Platelet Volume 8.9 FL 9.0 FL Laboratory Tests Test 11/18/16 18:35 11/19/16 03:38 11/20/16 03:43 Blood Urea Nitrogen 51 MG/DL 62 MG/DL 83 MG/DL Creatinine 2.65 MG/DL 3.00 MG/DL 3.81 MG/DL Random Glucose 184 MG/DL 193 MG/DL 98 MG/DL Total Protein 5.9 GM/DL 6.3 GM/DL 6.8 GM/DL Albumin 1.4 GM/DL 1.6 GM/DL Calcium Level 7.1 MG/DL 7.0 MG/DL 6.6 MG/DL Alkaline Phosphatase 133 U/L 119 U/L Aspartate Amino Transf (AST/SGOT) 26 U/L 122 U/L Alanine Aminotransferase (ALT/SGPT) 16 U/L 47 U/L Total Bilirubin 3.0 MG/DL 2.6 MG/DL Sodium Level 139 MEQ/L 139 MEQ/L 137 MEQ/L Potassium Level 4.3 MEQ/L 4.4 MEQ/L 4.9 MEQ/L Chloride Level 107 MEQ/L 106 MEQ/L 105 MEQ/L Carbon Dioxide Level 19.9 MEQ/L 19.5 MEQ/L 18.7 MEQ/L Anion Gap 12 MEQ/L 14 MEQ/L 13 MEQ/L Estimat Glomerular Filtration Rate 26 ML/MIN 23 ML/MIN 17 ML/MIN Protein Corrected Calcium 7.7 MG/DL 7.4 MG/DL 6.8 MG/DL Direct Bilirubin 2.2 MG/DL Indirect Bilirubin 0.4 MG/DL Microbiology Date/Time Source Procedure Growth Status 11/18/16 16:45 Blood Peripheral Aerobic Blood Culture - Preliminary NO GROWTH IN 1 DAY Resulted 11/18/16 16:45 Blood Peripheral Anaerobic Blood Culture - Preliminary NO GROWTH IN 1 DAY Resulted 11/18/16 16:30 Blood Peripheral Aerobic Blood Culture - Preliminary NO GROWTH IN 1 DAY Resulted 11/18/16 16:30 Blood Peripheral Anaerobic Blood Culture - Preliminary NO GROWTH IN 1 DAY Resulted 11/17/16 12:07 Blood Peripheral Aerobic Blood Culture - Final S. Aureus Mrsa Resulted 11/17/16 12:07 Blood Peripheral Anaerobic Blood Culture - Preliminary NO GROWTH IN 2 DAYS Resulted 11/17/16 12:00 Blood Peripheral Aerobic Blood Culture - Final S. Aureus Mrsa Resulted 11/17/16 12:00 Blood Peripheral Anaerobic Blood Culture - Preliminary NO GROWTH IN 2 DAYS Resulted 11/18/16 02:20 Sputum Endotracheal Gram Stain - Final Resulted 11/18/16 02:20 Sputum Culture - Preliminary S. Aureus Mrsa Resulted 11/18/16 03:00 Urine Catheterized Urine Urine Culture - Preliminary NO GROWTH IN 24 HOURS. Resulted Imaging Last Impressions Chest X-Ray 11/17/16 0000 Signed Impressions: Service Date/Time: Thursday, November 17, 2016 11:07 - CONCLUSION: Development of diffuse pulmonary infiltrates with consolidation additionally in the left lower lobe. Chencho Chaparro MD Renal Ultrasound 11/15/16 0000 Signed Impressions: Service Date/Time: Tuesday, November 15, 2016 10:26 - CONCLUSION: Normal examination. Katie Nevarez MD Chest CT 11/15/16 0000 Signed Impressions: Service Date/Time: Tuesday, November 15, 2016 09:10 - CONCLUSION: Multiple new solid and cavitary irregular nodules seen throughout the lungs bilaterally. These may represent foci of metastatic disease, however, given that these are new as compared to the prior exam of July 2016 concern is for possible septic emboli given the cavitary lesions. Small right-sided pleural effusion also favors possible infectious source. Katie Nevarez MD Physical Exam GENERAL: This is a well-nourished, well-developed patient, in mild resp distress. SKIN: No rashes, ecchymoses or lesions. Cool and dry. HEAD: Atraumatic. Normocephalic. No temporal or scalp tenderness. EYES: Pupils equal round and reactive. Extraocular motions intact. No scleral icterus. No injection or drainage. ENT: Intubated. Nose without bleeding, purulent drainage or septal hematoma. NECK: Trachea midline. Supple, nontender, no meningeal signs. CARDIOVASCULAR: HS audible.? Systolic murmur. RESPIRATORY: Decreased AE in bases. GASTROINTESTINAL: Abdomen soft, non-tender, nondistended. MUSCULOSKELETAL: Extremities without clubbing, cyanosis, or edema. No joint tenderness, effusion, or edema noted. No calf tenderness. Negative Homans sign bilaterally. NEUROLOGICAL: Sedated. Psych could not be assessed. IV line sites with no evidence of infection. Assessment & Plan Remarks Septic Shock with MODS (fever, tachy, low BP, bandemia, source: lung, endocarditis) MRSA bacteremia, TV endocarditis with severe TR. Lung lesions: septic emboli most likely. Other differentials include cancer related mets. Very less likely to be fungal or TB. Acute renal failure: prerenal, sepsis. Acute metabolic encephalopathy: sepsis, less likely to be meningitis. Hyponatremia: Infection, metabolic, meningitis Hepatitis C positive. Recommendations: Continue Daptomycin IV (Re: Worsening clinically, resp distress, back pain, neck pain ? further dissemination). Does not cover Pneumonia. Continue Rifampin oral (cannot use Genta due to ARF). Follow LFTs if increases further consider stopping. If BCX remain negative at 48 hrs ok to stop Rifampin. Continue Teflaro IV (MRSA bacteremia, Cannot use Nephrotoxins plus Vanco MAHOGANY 2 and clinically failing) Continue Zosyn IV (for possible HCAP). follow Sputum if no gram negatives ok to Stop Zosyn IV. Follow cultures Follow clinically. Follow CT C/A/P and Brain non contrast r/o dissemination, drainable abscesses or empyema. Nephrology consult. d/w and : Will get MRI entire spine non contrast to r.o epidural abscess/osteomyelitis. Plan d/w RN Time in excess of 40 mins. Critical thinking decision making. d.w plan for the day. to cover for me this weekend. Lucille Lizama MD Nov 20, 2016 08:39
[2016-11-20] MEDS: VASOPRESSIN INJ 40 UNITS in DEXTROSE 5% IN WATER 100ML INJ 98 ML IV SCH ×2 (08:47)
[2016-11-20] MEDS: PIPERACIL-TAZO 4.5 GM PREMIX 100 ML IV SCH ×3 (08:47→23:23)
[2016-11-20] MEDS: PANTOPRAZOLE SODIUM 40 MG VIAL IV SCH (08:48)
[2016-11-20] MEDS: DOCUSATE SODIUM 50 MG/SENNA 8.6 MG TAB PO SCH ×2 (08:48→20:08)
[2016-11-20] MEDS: RIFAMPIN 150 MG CAP PO SCH ×2 (08:48→20:08)
--- NOTE | 2016-11-20 08:58 | RADRPT ---
EXAM DATE/TIME: 11/20/2016 08:15 [place] COMPARISON: CHEST SINGLE AP, November 18, 2016, 1:44. INDICATIONS : Short of breath. MEDICAL HISTORY : Carcinoma, colon. SURGICAL HISTORY : None. ENCOUNTER: Subsequent ACUITY: 4 - 6 days PAIN SCORE: Non-responsive. LOCATION: Bilateral chest FINDINGS: A single portable frontal view of the chest shows the tip of the endotracheal tube 3 cm proximal to t he xavier. Nasogastric tube courses off the inferior margin of the film. Right subclavian central brian e. No pneumothorax. Bilateral pulmonary infiltrates are shown significant improvement relative to the prior study and heart is normal in size. The effusions are smaller. CONCLUSION: 1. Considerable improvement in the pulmonary infiltrates. 2. Smaller effusions. Luis Antonio Evangelista Jr., MD on November 20, 2016 at 8:55 Board Certified Radiologist. This report was verified electronically.
[2016-11-20] MEDS: CEFTAROLINE INJ 400 MG in SODIUM CHLORIDE 0.9% INJ 100 ML IV SCH ×2 (09:00→16:12)
[2016-11-20] MEDS ORDERED: SODIUM BICARBONATE 8.4% INJ 50 MEQ/50 ML SYR IV PUSH ONE (09:45)
[2016-11-20 09:51] LABS: BLOOD GAS CARBOXYHEMOGLOBIN 0.6 % (0-4); BLOOD GAS HCO3 17 mmol/L (22-26); BLOOD GAS METHEMOGLOBIN 1.7 % (0-2); BLOOD GAS O2 HGB SATURATION 88 % (90-100); BLOOD GAS OXYGEN CONTENT 11.4 Vol % (12.0-20.0); BLOOD GAS PCO2 43 mmHg (38-42); BLOOD GAS PO2 75 mmHg (61-120); BLOOD GAS TOTAL HGB 9.2 G/DL (12.0-16.0); CRITICAL VALUE YES; DRAW SITE RT RADIAL; FIO2 40 %; NUMBER OF ARTERIAL PUNCTURES 1; OXYGEN DEVICE VENTILATOR; TEMP CORR TO 98.6; VENT SETTINGS AC/RR14/VT500/PEEP5
[2016-11-20 09:52] LABS: STAT NO; ULNAR PULSE PRESENT
[2016-11-20 10:49] LABS: CKMB 2.6 NG/ML (0.5-3.6)
--- NOTE | 2016-11-20 11:12 | PD.CONS ---
[facility] Service Nephrology Consult Requested By Patrice Reason for Consult Acute Renal Failure Primary Care Physician Daniel Galvan MD History of Present Illness This is a 45 y/o male admitted on 11/15 for fever and Shortness of breath, Brought in by his mother. His only hx of Hep C, IVDA, and colorectal cancer for which he had radiation therapy last week. He was septic on arrival, hypotensive and febrile. He did require intubation for respiratory failure, continues on ventilator. 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 He is on Teflaro, Zosyn, and daptomycin. ID is followign. His renal function was normal in the past. In August his creatinine was 1.0. On admission it was 2.29, then improved to 1.24, but has increased to 3.8 today. He is demonstrating fluid overload, and was started on Bumex gtt which is at 1 mg/hr. He is making urine. He is unable to give any information. We were consulted for renal management. (Tess Alas) Review of Systems ROS Limitations: Intubated, Unresponsive (Tess Alas) Past Family Social History Allergies: Coded Allergies: No Known Allergies (Unverified , 11/15/16) Past Medical History IVDA Hep C colon cancer Past Surgical History None Reported Medications [nausea medication] Percocet (Oxycodone-Acetaminophen) 5-325 mg Tab 1 Tab PO Q4H PRN Active Ordered Medications Current Medications Medications (Trade) Dose Ordered Sig/Osvaldo Route Start Time Stop Time Status Last Admin (Protonix Inj) 40 mg DAILY IV 11/15/16 10:00 11/20/16 08:48 (Atrovent Neb) 0.5 mg Q2HR NEB PRN INH 11/15/16 09:00 11/18/16 01:12 Miscellaneous Information 1 Q361D XX 11/15/16 09:00 (Chlorhexidine 2% Cloth) 3 pack Taper DAILY@04 TOP 11/16/16 04:00 11/12/17 03:59 11/20/16 04:00 (Chlorhexidine 2% Cloth) 3 pack UNSCH PRN TOP 11/15/16 09:00 (Marina-Colace) 1 tab BID PO 11/15/16 11:00 11/20/16 08:48 (Milk Of Magnesia Liq) 30 ml Q12H PRN PO 11/15/16 09:00 (Senokot) 17.2 mg Q12H PRN PO 11/15/16 09:00 (Dulcolax Supp) 10 mg DAILY PRN RECTAL 11/15/16 09:00 (Lactulose Liq) 30 ml DAILY PRN PO 11/15/16 09:00 (D50w (Vial) Inj) 50 ml UNSCH PRN IV 11/15/16 09:45 (Glucagon Inj) 1 mg UNSCH PRN OTHER 11/15/16 09:45 (NovoLIN R SUPPLEMENTAL SCALE) 1 Q6H SQ 11/15/16 11:00 11/19/16 05:00 (Zofran Inj) 4 mg Q8H PRN IV PUSH 11/15/16 13:15 11/15/16 20:37 Daptomycin 590 mg/ Sodium Chloride 100 ml @ 200 mls/hr Q24H IV 11/17/16 12:00 11/19/16 12:04 (Rifampin) 150 mg Q12HR PO 11/17/16 21:00 11/20/16 08:48 Midazolam HCl 100 ml @ 2 mls/hr Q24H PRN IV 11/18/16 01:27 11/18/16 01:55 (Brethine Inj) 1 mg UNSCH PRN SQ 11/18/16 03:45 Vasopressin 40 units/Dextrose 100 ml @ 1.5 mls/hr Q24H IV 11/18/16 05:54 11/20/16 08:47 Norepinephrine Bitartrate 16 mg/ Sodium Chloride 250 ml @ 1.87 mls/hr TITRATE PRN IV 11/18/16 06:45 11/19/16 07:52 Piperacillin Sod/ Tazobactam Sod 100 ml @ 200 mls/hr Q8H IV 11/18/16 08:00 11/20/16 08:47 Bumetanide 100 ml @ 4 mls/hr Q24H IV 11/18/16 19:00 11/19/16 23:17 (Duoneb Neb) 1 ampule Q6HR NEB INH 11/19/16 10:00 11/20/16 08:01 Ceftaroline Fosamil 400 mg/ Sodium Chloride 100 ml @ 100 mls/hr Q8H IV 11/19/16 17:00 11/20/16 09:00 Fentanyl Citrate 250 ml @ 5 mls/hr TITRATE PRN IV 11/19/16 17:00 11/20/16 07:18 Propofol 100 ml @ 2.427 mls/ hr TITRATE PRN IV 11/19/16 17:00 11/20/16 08:59 Family History unable to obtain Social History information pulled from medical record former smoker tested positive for cocaine and opiates, hx IVDA apparently lives with mother (Tess Alas) Physical Exam Vital Signs Vital Signs Date Time Temp Pulse Resp B/P (MAP) Pulse Ox O2 Delivery O2 Flow Rate FiO2 11/20/16 08:47 116 126/73 11/20/16 08:02 94 40 11/20/16 07:53 91 40 11/20/16 06:00 104 11/20/16 04:16 94 40 11/20/16 04:15 106 8 96/59 (71) 94 11/20/16 04:00 40 11/20/16 04:00 104 11/20/16 04:00 98.0 104 7 96/58 (71) 94 11/20/16 03:45 104 8 93/55 (68) 94 11/20/16 03:30 103 8 92/55 (67) 94 11/20/16 03:15 101 11 88/53 (65) 94 11/20/16 03:00 101 8 92/55 (67) 95 11/20/16 02:45 101 8 93/53 (66) 95 11/20/16 02:30 101 8 87/52 (64) 96 11/20/16 02:15 102 8 86/53 (64) 96 11/20/16 02:00 101 8 92/53 (66) 95 11/20/16 02:00 101 11/20/16 01:45 100 8 89/52 (64) 95 11/20/16 01:30 100 11 89/53 (65) 96 11/20/16 01:19 95 40 11/20/16 01:15 101 8 88/51 (63) 95 11/20/16 01:00 101 8 92/52 (65) 94 11/20/16 00:45 101 8 84/52 (63) 95 11/20/16 00:30 101 8 85/53 (64) 96 11/20/16 00:15 101 8 86/50 (62) 95 11/20/16 00:00 97.9 101 8 84/53 (63) 95 11/20/16 00:00 40 11/20/16 00:00 101 11/19/16 23:46 101 8 88/53 (65) 95 11/19/16 23:45 101 8 82/53 (63) 96 11/19/16 23:30 96 40 11/19/16 23:30 101 8 88/57 (67) 96 11/19/16 23:15 101 8 87/57 (67) 95 11/19/16 23:00 101 8 95/55 (68) 96 11/19/16 22:45 101 8 108/61 (77) 95 11/19/16 22:30 100 9 97/54 (68) 96 11/19/16 22:15 101 7 100/57 (71) 96 11/19/16 22:00 101 9 89/57 (68) 95 11/19/16 22:00 101 11/19/16 21:45 101 8 94/56 (69) 96 11/19/16 21:30 101 8 98/59 (72) 96 11/19/16 21:15 100 8 98/61 (73) 96 11/19/16 21:00 99 8 98/60 (73) 95 11/19/16 20:51 96 40 11/19/16 20:45 99 8 88/54 (65) 96 11/19/16 20:30 99 7 92/60 (71) 96 11/19/16 20:15 100 8 89/57 (68) 95 11/19/16 20:00 100 11/19/16 20:00 97.6 100 9 89/56 (67) 96 11/19/16 20:00 40 11/19/16 19:45 99 9 90/58 (69) 96 11/19/16 19:30 100 8 88/57 (67) 96 11/19/16 19:15 100 8 89/57 (68) 95 11/19/16 19:00 100 8 92/58 (69) 96 11/19/16 18:00 100 11/19/16 17:11 100 92/64 11/19/16 16:00 40 8/31/17 16:00 98 11/19/16 16:00 98.8 98 13 97/60 (72) 96 11/19/16 15:37 96 40 11/19/16 14:00 97 11/19/16 12:03 101 105/62 11/19/16 12:00 40 11/19/16 12:00 101 11/19/16 12:00 98.4 101 20 93/66 (75) 96 Physical Exam Middle aged male intubated, eyes open but does not respond S1/S2, RRR no murmur or rubs lungs with scattered rales, vented lung sounds abdomen soft, non tender ext: 3+ edema SKin: intact Lines: TLC right IJ, fishman, OG tube Gtts: Bumex, propofol, fentanyl, (Levophed and vasopressin on hold) Laboratory Laboratory Tests Test 11/20/16 03:43 11/20/16 09:16 11/20/16 09:48 White Blood Count 21.4 Red Blood Count 3.53 Hemoglobin 9.1 Hematocrit 28.1 Mean Corpuscular Volume 79.6 Mean Corpuscular Hemoglobin 25.8 Mean Corpuscular Hemoglobin Concent 32.4 Red Cell Distribution Width 16.9 Platelet Count 121 Mean Platelet Volume 9.0 Prothrombin Time 12.6 Prothromb Time International Ratio 1.1 Activated Partial Thromboplast Time 33.4 Blood Urea Nitrogen 83 Creatinine 3.81 Random Glucose 98 Total Protein 6.8 Calcium Level 6.6 Sodium Level 137 Potassium Level 4.9 Chloride Level 105 Carbon Dioxide Level 18.7 Anion Gap 13 Estimat Glomerular Filtration Rate 17 Protein Corrected Calcium 6.8 Total Bilirubin 2.6 Direct Bilirubin 2.2 Indirect Bilirubin 0.4 Aspartate Amino Transf (AST/SGOT) 122 Alanine Aminotransferase (ALT/SGPT) 47 Alkaline Phosphatase 119 Albumin 1.6 Blood Gas Puncture Site RT RADIAL Blood Gas Patient Temperature 98.6 Blood Gas HCO3 17 Blood Gas Base Excess -10.0 Blood Gas Oxygen Saturation 88 Arterial Blood pH 7.21 Arterial Blood Partial Pressure CO2 43 Arterial Blood Partial Pressure O2 75 Arterial Blood Oxygen Content 11.4 Arterial Blood Carboxyhemoglobin 0.6 Arterial Blood Methemoglobin 1.7 Blood Gas Hemoglobin 9.2 Oxygen Delivery Device VENTILATOR Blood Gas Ventilator Setting AC/RR14/VT500/PEEP5 Blood Gas Inspired Oxygen 40 Lactic Acid Level 0.9 Total Creatine Kinase 356 Creatine Kinase MB 2.6 Creatine Kinase MB % 0.7 Date/Time Source Procedure Growth Status 11/18/16 16:45 Blood Peripheral Aerobic Blood Culture - Preliminary Gram Positive Cocci Resulted 11/18/16 16:45 Blood Peripheral Anaerobic Blood Culture - Preliminary NO GROWTH IN 1 DAY Resulted 11/18/16 02:20 Sputum Endotracheal Gram Stain - Final Resulted 11/18/16 02:20 Sputum Culture - Preliminary S. Aureus Mrsa Resulted 11/18/16 03:00 Urine Catheterized Urine Urine Culture - Final NO GROWTH IN 48 HOURS. Complete (Tess Alas) Result Diagram: 11/20/16 0343 11/20/16 0343 Imaging Last Impressions Chest X-Ray 11/20/16 0000 Signed Impressions: Service Date/Time: Sunday, November 20, 2016 08:15 - CONCLUSION: 1. Considerable improvement in the pulmonary infiltrates. 2. Smaller effusions. Luis Antonio Evangelista Jr., MD Renal Ultrasound 11/15/16 0000 Signed Impressions: Service Date/Time: Tuesday, November 15, 2016 10:26 - CONCLUSION: Normal examination. Katie Nevarez MD Chest CT 11/15/16 0000 Signed Impressions: Service Date/Time: Tuesday, November 15, 2016 09:10 - CONCLUSION: Multiple new solid and cavitary irregular nodules seen throughout the lungs bilaterally. These may represent foci of metastatic disease, however, given that these are new as compared to the prior exam of July 2016 concern is for possible septic emboli given the cavitary lesions. Small right-sided pleural effusion also favors possible infectious source. Katie Nevarez MD (Tess Alas) Assessment and Plan Problem List: (1) Acute renal failure ICD Codes: N17.9 - Acute kidney failure, unspecified Plan: He has normal renal function at baseline, in August his creatinine was 1 RACHEL likely from sepsis syndrome, hypotension, decreased renal perfusion; possible progression to ATN he has been hypotensive overnight but as of now he is off pressor support ; resume if needed to maintain MAP > 65mmHg also has septic embolic, check complement levels renal US negative for obstruction UA with infection, culture in process he has fluid overload, weight up 12 kg; currently on Bumex gtt at 1 mg/hr, good response; titrate as needed he is non oliguric follow renal function avoid IVF, nephrotoxins, renally dose medications when appropriate daily renal panel (2) Severe sepsis ICD Codes: A41.9 - Sepsis, unspecified organism; R65.20 - Severe sepsis without septic shock Status: Acute Plan: with MRSA bacteremia ID following + TV endocarditis, septic emboli continue antibiotic therapy, he is on Teflaro, Zosyn and daptomycin (3) Rectal cancer ICD Codes: C20 - Malignant neoplasm of rectum Status: Acute Plan: has had radiation as recent as last week (Tess Alas) Assessment and Plan patient was seen and examined. RACHEL could be due to sepsis and ATN or septic emboli, post-infectious GN. Patient is on Bumex drip. Avoid nephrotoxic agents. No immediate need for dialysis. (Leonidas Gillis MD) Tess Alas Nov 20, 2016 11:12 Leonidas Gillis MD Nov 20, 2016 15:17
[2016-11-20] MEDS: SODIUM CHLORIDE 0.9% IV SCH (12:26)
[2016-11-20] MEDS: DAPTOMYCIN IV SCH (12:26)
--- NOTE | 2016-11-20 12:51 | RADRPT ---
EXAM DATE/TIME: 11/20/2016 11:30 [facility] COMPARISON: CT THORAX W/O CONTRAST, November 15, 2016, 9:10. INDICATIONS : Possible pneumonia RADIATION DOSE: 6.03 CTDIvol (mGy) ; Combined studies - Thorax/Abdomen/Pelvis MEDICAL HISTORY : Carcinoma, rectal. SURGICAL HISTORY : None. ENCOUNTER: Initial ACUITY: 1 day PAIN SCALE: Non-responsive LOCATION: chest TECHNIQUE: Volumetric scanning of the chest was performed. Using automated exposure control and adjustment of t he mA and/or kV according to patient size, radiation dose was kept as low as reasonably achievable to obtain optimal diagnostic quality images. DICOM format image data is available electronically for r eview and comparison. Follow-up recommendations for detected pulmonary nodules are based at a minimum on nodule size and pa tient risk factors according to Fleischner Society Guidelines. FINDINGS: LUNGS: Multiple cavitating lung nodules are present in both lungs increasing in both size and distribution. There is increasing bibasilar consolidative changes. PLEURAE: Trace effusion is now noted. MEDIASTINUM: Minimal nonspecific mediastinal adenopathy is evident. AXILLAE: Within normal limits. No lymphadenopathy. MUSCULOSKELETAL: Within normal limits for patient age. MISCELLANEOUS: The visualized upper abdominal organs demonstrate no acute abnormality. CONCLUSION: Deterioration in the appearance of the chest with increasing size of nodules and cons olidation. Worsening of an inflammatory process is suspected. Michael Youssef MD FACR on November 20, 2016 at 12:48 Board Certified Radiologist. This report was verified electronically.
--- NOTE | 2016-11-20 12:53 | RADRPT ---
EXAM DATE/TIME: 11/20/2016 11:30 [facility] COMPARISON: No previous studies available for comparison. INDICATIONS : Possible abscess ORAL CONTRAST: No oral contrast ingested. RADIATION DOSE: 6.03 CTDIvol (mGy) ; Combined studies - Thorax/Abdomen/Pelvis MEDICAL HISTORY : Carcinoma, rectal. SURGICAL HISTORY : None. ENCOUNTER: Initial ACUITY: 3 days PAIN SCALE: Non-responsive LOCATION: Abdomen TECHNIQUE: Volumetric scanning of the abdomen and pelvis was performed. Using automated exposure control and ad justment of the mA and/or kV according to patient size, radiation dose was kept as low as reasonably achievable to obtain optimal diagnostic quality images. DICOM format image data is available electro nically for review and comparison. FINDINGS: Again seen are the cavitating nodules in both lung spaces. The liver, spleen, pancreas and adrenals are unremarkable Nasogastric tube in second portion of the duodenum There is no free air Right and left kidneys are unremarkable There is no ascites Generalized anasarca is evident Pelvic contents appear normal. CONCLUSION: Significant aeration appearance of the lungs. Generalized anasarca, negative for abscess. Adults abdominal abscess. Michael Youssef MD FACR on November 20, 2016 at 12:50 Board Certified Radiologist. This report was verified electronically.
[2016-11-20 14:44] LABS: BLOOD GAS BASE EXCESS -6.3 mmol/L (-2-2); BLOOD GAS CARBOXYHEMOGLOBIN 0.8 % (0-4); BLOOD GAS HCO3 20 mmol/L (22-26); BLOOD GAS METHEMOGLOBIN 1.6 % (0-2); BLOOD GAS O2 HGB SATURATION 93 % (90-100); BLOOD GAS OXYGEN CONTENT 12.3 Vol % (12.0-20.0); BLOOD GAS PCO2 47 mmHg (38-42); BLOOD GAS PO2 99 mmHg (61-120); BLOOD GAS TOTAL HGB 9.3 G/DL (12.0-16.0); TEMP CORR TO 98.6
[2016-11-20 14:46] LABS: CRITICAL VALUE YES; FIO2 100 %; OXYGEN DEVICE VENTILATOR
[2016-11-20 14:47] LABS: DRAW SITE LT RADIAL; NUMBER OF ARTERIAL PUNCTURES 1; STAT NO; ULNAR PULSE PRESENT
[2016-11-20] MEDS: BUMETANIDE INJ 100 ML IV SCH (18:00)
--- NOTE | 2016-11-20 23:17 | RADRPT ---
EXAM DATE/TIME: 11/20/2016 21:36 [place] Corrected on: November 20, 2016; [facility] COMPARISON: No previous studies available for comparison. INDICATIONS : Abscess. MEDICAL HISTORY : Colon Cancer. Endocarditis SURGICAL HISTORY : None. ENCOUNTER: ACUITY: 4-6 days PAIN SCORE: Nonresponsive. LOCATION: Cervical TECHNIQUE: Multiplanar, multisequence MRI examination of the cervical spine was performed. FINDINGS: VERTEBRAE: Normal vertebral body height. Homogeneous marrow signal. There is a focal 0.7 cm lesion at the poste rior superior C7 vertebral body seen as bright signal on the T2-weighted images. This likely represen ts a hemangioma. ALIGNMENT: No evidence of subluxation. CORD: Normal configuration and signal. POST FOSSA: The cerebellar tonsils are normal in position. OTHER: There is a vague area of edema seen in the soft tissues to the left of the C7 and T1 spinous processe s. This measures approximately 2.4 x 1.4 cm on the sagittal scan. The spinous processes demonstrate n ormal signal. There is an ET tube and NG tube in place. Fluid is seen in the nasopharynx, oropharynx and hypopharynx. C2-C3: The thecal sac has a normal configuration. There is no evidence of disc herniation or spinal canal s tenosis. The neural foramina are patent bilaterally. C3-C4: The thecal sac has a normal configuration. There is no evidence of disc herniation or spinal canal s tenosis. The neural foramina are patent bilaterally. C4-C5: The thecal sac has a normal configuration. There is no evidence of disc herniation or spinal canal s tenosis. The neural foramina are patent bilaterally. C5-C6: The thecal sac has a normal configuration. There is no evidence of disc herniation or spinal canal s tenosis. The neural foramina are patent bilaterally. C6-C7: The thecal sac has a normal configuration. There is no evidence of disc herniation or spinal canal s tenosis. The neural foramina are patent bilaterally. C7-T1: The thecal sac has a normal configuration. There is no evidence of disc herniation or spinal canal s tenosis. The neural foramina are patent bilaterally. CONCLUSION: 1. 2.4 cm vague area of edema seen to the left of the spinous processes of C7 and T1 concerning for f ocal inflammatory/infectious change. The spinous processes themselves demonstrate normal signal. 2. Suspected hemangioma at the C7 vertebral body. 3. Fluid in the nasopharynx, oropharynx and hypopharynx. There is an NG tube and ET tube in place. Manolo Anne MD on November 20, 2016 at 23:12 Board Certified Radiologist. This report was verified electronically. Manolo Anne MD on November 20, 2016 at 23:23 Board Certified Radiologist. This report was verified electronically.
--- NOTE | 2016-11-20 23:28 | RADRPT ---
EXAM DATE/TIME: 11/20/2016 21:36 [facility] COMPARISON: CT THORAX W/O CONTRAST, November 20, 2016, 11:30. INDICATIONS : Abscess. MEDICAL HISTORY : Colon Cancer. Endocarditis. SURGICAL HISTORY : None. ENCOUNTER: Subsequent ACUITY: 4-6 days PAIN SCORE: Nonresponsive. LOCATION: Thoracic TECHNIQUE: Multiplanar multisequence MRI of the thoracic spine was performed. FINDINGS: VERTEBRA: Normal vertebral body height. Homogeneous marrow signal. There is some increased signal/edema seen i n the soft tissues the left of the C7 and T1 spinous processes better seen on the cervical spine MRI examination. ALIGNMENT: Normal. CORD: Normal position and configuration. OTHER: Numerous cavitary lesions are seen throughout the lungs. T1-T2: Normal. T2-T3: The thecal sac has a normal diameter. No evidence of disc bulge or protrusion. T3-T4: The thecal sac has a normal diameter. No evidence of disc bulge or protrusion. T4-T5: The thecal sac has a normal diameter. No evidence of disc bulge or protrusion. T5-T6: The thecal sac has a normal diameter. No evidence of disc bulge or protrusion. T6-T7: The thecal sac has a normal diameter. No evidence of disc bulge or protrusion. T7-T8: The thecal sac has a normal diameter. No evidence of disc bulge or protrusion. T8-T9: The thecal sac has a normal diameter. No evidence of disc bulge or protrusion. T9-T10: The thecal sac has a normal diameter. No evidence of disc bulge or protrusion. T10-T11: The thecal sac has a normal diameter. No evidence of disc bulge or protrusion. T11-T12: The thecal sac has a normal diameter. No evidence of disc bulge or protrusion. T12-L1: The thecal sac has a normal diameter. No evidence of disc bulge or protrusion. CONCLUSION: 1. No focal abnormality within the thoracic spine. 2. There is edema/inflammatory change seen in the soft tissues to the left of the C7 and T1 spinous p rocesses better seen on the cervical spine MRI examination. 3. Cavitary lesions in the lungs. Manolo Anne MD on November 20, 2016 at 23:24 Board Certified Radiologist. This report was verified electronically.
--- NOTE | 2016-11-20 23:33 | RADRPT ---
EXAM DATE/TIME: 11/20/2016 21:36 [facility] COMPARISON: No previous studies available for comparison. INDICATIONS : Abscess. MEDICAL HISTORY : Colon Cancer. Endocarditis. SURGICAL HISTORY : None. ENCOUNTER: Subsequent ACUITY: 4-6 days PAIN SCORE: Nonresponsive. LOCATION: Lumbar TECHNIQUE: Multiplanar multisequence MRI of the lumbar spine was performed without contrast. FINDINGS: The most caudal appearing lumbar vertebra is numbered as L5. VERTEBRAE: The lumbar vertebral bodies demonstrate normal signal. They are normally aligned. There is nonspecifi c edema seen in the paraspinous soft tissues adjacent to the spinous processes throughout the lumbar spine.. CONUS: Normal level and configuration. OTHER: There is ascites seen in the pelvis. T12-L1: The thecal sac has a normal diameter. No evidence of disc bulge or protrusion. The neural foramina are patent bilaterally. L1-L2: The thecal sac has a normal diameter. No evidence of disc bulge or protrusion. The neural foramina are patent bilaterally. L2-L3: The thecal sac has a normal diameter. No evidence of disc bulge or protrusion. The neural foramina are patent bilaterally. L3-L4: The thecal sac has a normal diameter. No evidence of disc bulge or protrusion. The neural foramina are patent bilaterally. There is mild facet hypertrophy. L4-L5: The thecal sac has a normal diameter. No evidence of disc bulge or protrusion. The neural foramina are patent bilaterally. There is mild facet hypertrophy. L5-S1: The thecal sac has a normal diameter. No evidence of disc bulge or protrusion. The neural foramina are patent bilaterally. CONCLUSION: 1. No areas of significant stenosis. The disc spaces are preserved. 2. Mild facet hypertrophy at the L3-L4 and L4-L5 old. 3. Nonspecific areas of edema within the soft tissues adjacent to the spinous processes throughout th e lumbar spine. This can be seen secondary to some dependent edema. Inflammatory change cannot be exc luded. It does appear fairly symmetric when comparing right to left. 4. Ascites. Manolo Anne MD on November 20, 2016 at 23:27 Board Certified Radiologist. This report was verified electronically.
--- NOTE | 2016-11-20 23:40 | RADRPT ---
EXAM DATE/TIME: 11/20/2016 21:36 [facility] COMPARISON: No previous studies available for comparison. INDICATIONS : Abscess. MEDICAL HISTORY : Colon Cancer. Endocarditis. SURGICAL HISTORY : None. ENCOUNTER: Subsequent ACUITY: 4-6 days PAIN SCORE: Nonresponsive. LOCATION: cranial TECHNIQUE: Multiplanar, multisequence MRI of the brain was performed without contrast. FINDINGS: One the flair images there is abnormal somewhat linear and gyriform signal abnormality in the left fr ontal and parietal region. There is some minimally associated increased signal on the diffusion weigh frank images. There is no mass effect or midline shift. No hydrocephalus. No abnormal extra-axial fluid collections. CONCLUSION: 1. Abnormal gyriform signal abnormality in the left frontal and parietal regions associated with some minimally increased signal on the diffusion weighted images. Findings are nonspecific. Differential diagnosis includes an area of meningitis or leptomeningeal spread of tumor given history of malignanc y. Infarction less likely. No associated mass effect. Recommend further evaluation with MRI brain wit h contrast to assess for abnormal meningeal enhancement. Bruno Cleaning MD on November 20, 2016 at 23:31 Board Certified Radiologist. This report was verified electronically.
[2016-11-21] VITALS (19 sets, daily range): BP systolic 91–143; BP diastolic 52–81; PULSE 112–126; RESP 20–31; TEMP 97.8–99.4; O2SAT 93–100
[2016-11-21] MEDS: CEFTAROLINE INJ 400 MG in SODIUM CHLORIDE 0.9% INJ 100 ML IV SCH ×3 (00:51→18:13)
[2016-11-21] MEDS: PROPOFOL 1000 MG/100 ML IV PRN ×4 (01:41→22:02)
[2016-11-21] MEDS: RESP: ALBUTEROL 2.5 MG/IPRATROPIUM 0.5 MG NEB (SCH) INH ×4 (03:39→21:05)
[2016-11-21] MEDS: CHLORHEXIDINE GLUCONATE 2 % 1 PACK (2 CLOTHS) TOP SCH (04:00)
[2016-11-21 04:23] LABS: AUTOMATED NEUTROPHIL # 11.2 TH/MM3 (1.8-7.7); BASOPHIL % 0.2 % (0.0-2.0); EOSINOPHIL % 0.1 % (0.0-4.0); HEMATOCRIT 27.4 % (39.0-51.0); LYMPHOCYTE # 0.2 TH/MM3 (1.0-4.8); MEAN CELL VOLUME 76.6 FL (80.0-100.0); MEAN CORPUSCULAR HEMOGLOBIN 24.6 PG (27.0-34.0); MEAN CORPUSCULAR HGB CONC 32.1 % (32.0-36.0); MONO % 1.7 % (0.0-8.0); PLATELET COUNT 88 TH/MM3 (150-450); RED BLOOD COUNT 3.57 MIL/MM3 (4.50-5.90); RED CELL DISTRIBUTION WIDTH 16.2 % (11.6-17.2); WHITE BLOOD COUNT 11.7 TH/MM3 (4.0-11.0)
[2016-11-21 04:24] LABS: HEMO FLAGS AUTO DIFF
[2016-11-21 04:32] LABS: APTT (PATIENT) 30.3 SEC (24.3-30.1); INTERNATIONAL NORMALIZED RATIO 1.1 RATIO
[2016-11-21] MEDS: INSULIN NovoLIN REGULAR SUPPLEMENTAL SCALE SQ SCH ×4 (05:00→22:24)
[2016-11-21 05:07] LABS: BICARBONATE 26.5 MEQ/L (21.0-32.0); POTASSIUM 3.4 MEQ/L (3.5-5.1); TOTAL BILIRUBIN ADULT 2.9 MG/DL (0.2-1.0)
[2016-11-21 05:11] LABS: CALCIUM-PROTEIN CORRECTED 7.3 MG/DL (8.5-10.1)
[2016-11-21 05:34] LABS: PLATELET ESTIMATE SMEAR LOW (NORMAL); PLATELET MORPHOLOGY NORMAL (NORMAL); SCAN/DIFF AUTO DIFF CONFIRMED
[2016-11-21] MEDS: fentaNYL 2,500 MCG/NS 250 ML IV PRN (06:47)
[2016-11-21] MEDS: PIPERACIL-TAZO 4.5 GM PREMIX 100 ML IV SCH (08:50)
[2016-11-21] MEDS: RIFAMPIN 150 MG CAP PO SCH ×2 (08:50→22:03)
[2016-11-21] MEDS: DOCUSATE SODIUM 50 MG/SENNA 8.6 MG TAB PO SCH ×2 (08:50→22:03)
[2016-11-21] MEDS: PANTOPRAZOLE SODIUM 40 MG VIAL IV SCH (08:50)
--- NOTE | 2016-11-21 09:21 | HHI.CCPN ---
Subjective Remarks/Hospital Course The patient is a 45-year-old male with past medical history of colon cancer on radiation treatment last session on Wednesday and has been on radiation for the past 2-3 months being followed by Dr. Harrell, his oncologist, and Dr. Galvan. He presented to [facility] emergency department with a couple of days history of shortness of breath, pleuritic chest pain with deep inspiration , dry cough and feeling nauseous. The patient denies any exposure to sick contacts. In addition, he denies any prior history of pneumonia or flu. He was found to have a temperature of 101.4 orally in the ER. In addition hewas tachycardiac with heart rate of 120s to 130s. Chest x-ray in the ER showed new bilateral mild air space opacities. The patient subsequently had CT scan of the chest which showed multiple new solid and cavitary irregular nodules seen throughout the lungs bilaterally, and small right-sided pleural effusion. His laboratory data is significant for renal failure with a creatinine level of 2.29 and hypokalemia with a potassium level of 2.8. His lactic acid level measured at 1.2. The patient also is thrombocytopenic with a platelet count of 55, however, his INR is 1.2. In the ED he was given three liters of Crystalloid in addition to cefepime, azithromycin, Tylenol and DuoNeb. When seen in the ER he was on room air oxygen with saturation 96%. However, tachycardiac with heart rate of 123 and blood pressure 154/75. He denies any vomiting, abdominal pain. 11/16 No events overnight. Patient is lying in bed in NAD. Afebrile. renal function is improving with Cr: 1.54 from 2.0. Echo from yesterday showed vegetation on TV, EF 50-55%. 11/17 Patient is lying in bed in NAD. Afebrile. 11/18: decompensated overnight. now intubated, on vasopressors, on 100% fio2 APRV with paO2 72. severe ARDS likely combination of pulmonary septic emboli combined with CHF from severe TR, however also now in septic shock. 11/19: persistently hypoxic on APRV. fio2 weaned but still requiring high Phigh in order to remain oxygenated. Cr continues to rise with minimal uop (~300cc/24h ) despite bumex drip. vasopressors continue and remains in shock. 11/20 Patient is sedated with Diprivan, Fentanyl and intubated. On Levophed 8 mics and Vasopressin 0.04 mics. Afebrile. On Bumex drip. 11/21 Patient remains intubated and sedated with Diprivan and Fentanyl. Afebrile. On Bumex drip 0.5mg/hr. Renal function is improving with Cr: 3.21 from 3.81 with UOP: 9424ml in 24 hrs Off all pressors. Objective Vital Signs Date Time Temp Pulse Resp B/P (MAP) Pulse Ox O2 Delivery O2 Flow Rate FiO2 11/21/16 08:16 99 50 11/21/16 06:00 123 11/21/16 04:00 97.8 23 99/56 (70) 11/17/16 20:45 Non-Rebreather 15.00 Intake and Output 11/21/16 11/21/16 11/21/16 07:59 15:59 23:59 Intake Total 1162 ml Output Total 6350 ml Balance -5188 ml Result Diagram: 11/21/16 0400 11/21/16 0400 Other Results Laboratory Tests Test 11/20/16 09:16 11/20/16 09:48 11/20/16 14:26 11/21/16 04:00 Blood Gas Puncture Site RT RADIAL LT RADIAL Blood Gas Patient Temperature 98.6 98.6 Blood Gas HCO3 17 mmol/L 20 mmol/L Blood Gas Base Excess -10.0 mmol/L -6.3 mmol/L Blood Gas Oxygen Saturation 88 % 93 % Arterial Blood pH 7.21 7.25 Arterial Blood Partial Pressure CO2 43 mmHg 47 mmHg Arterial Blood Partial Pressure O2 75 mmHg 99 mmHg Arterial Blood Oxygen Content 11.4 Vol % 12.3 Vol % Arterial Blood Carboxyhemoglobin 0.6 % 0.8 % Arterial Blood Methemoglobin 1.7 % 1.6 % Blood Gas Hemoglobin 9.2 G/DL 9.3 G/DL Oxygen Delivery Device VENTILATOR VENTILATOR Blood Gas Ventilator Setting AC/RR14/VT500/PEEP5 SEE COMMENT Blood Gas Inspired Oxygen 40 % 100 % Lactic Acid Level 0.9 mmol/L Total Creatine Kinase 356 U/L Creatine Kinase MB 2.6 NG/ML Creatine Kinase MB % 0.7 % Complement C3 78 MG/DL Complement C4 19 MG/DL White Blood Count 11.7 TH/MM3 Red Blood Count 3.57 MIL/MM3 Hemoglobin 8.8 GM/DL Hematocrit 27.4 % Mean Corpuscular Volume 76.6 FL Mean Corpuscular Hemoglobin 24.6 PG Mean Corpuscular Hemoglobin Concent 32.1 % Red Cell Distribution Width 16.2 % Platelet Count 88 TH/MM3 Mean Platelet Volume 8.1 FL Neutrophils (%) (Auto) 96.0 % Lymphocytes (%) (Auto) 2.0 % Monocytes (%) (Auto) 1.7 % Eosinophils (%) (Auto) 0.1 % Basophils (%) (Auto) 0.2 % Neutrophils # (Auto) 11.2 TH/MM3 Lymphocytes # (Auto) 0.2 TH/MM3 Monocytes # (Auto) 0.2 TH/MM3 Eosinophils # (Auto) 0.0 TH/MM3 Basophils # (Auto) 0.0 TH/MM3 CBC Comment AUTO DIFF Differential Comment AUTO DIFF CONFIRMED Platelet Estimate LOW Platelet Morphology Comment NORMAL Prothrombin Time 12.0 SEC Prothromb Time International Ratio 1.1 RATIO Activated Partial Thromboplast Time 30.3 SEC Blood Urea Nitrogen 80 MG/DL Creatinine 3.21 MG/DL Random Glucose 147 MG/DL Total Protein 6.7 GM/DL Albumin 1.4 GM/DL Calcium Level 7.1 MG/DL Alkaline Phosphatase 132 U/L Aspartate Amino Transf (AST/SGOT) 64 U/L Alanine Aminotransferase (ALT/SGPT) 38 U/L Total Bilirubin 2.9 MG/DL Sodium Level 145 MEQ/L Potassium Level 3.4 MEQ/L Chloride Level 108 MEQ/L Carbon Dioxide Level 26.5 MEQ/L Anion Gap 11 MEQ/L Estimat Glomerular Filtration Rate 21 ML/MIN Protein Corrected Calcium 7.3 MG/DL Imaging Last Impressions Thoracic Spine MRI 11/20/16 Signed Impressions: Service Date/Time: Sunday, November 20, 2016 21:36 - CONCLUSION: 1. No focal abnormality within the thoracic spine. 2. There is edema/inflammatory change seen in the soft tissues to the left of the C7 and T1 spinous processes better seen on the cervical spine MRI examination. 3. Cavitary lesions in the lungs. Manolo Anne MD Lumbar Spine MRI 11/20/16 Signed Impressions: Service Date/Time: Sunday, November 20, 2016 21:36 - CONCLUSION: 1. No areas of significant stenosis. The disc spaces are preserved. 2. Mild facet hypertrophy at the L3-L4 and L4-L5 old. 3. Nonspecific areas of edema within the soft tissues adjacent to the spinous processes throughout the lumbar spine. This can be seen secondary to some dependent edema. Inflammatory change cannot be excluded. It does appear fairly symmetric when comparing right to left. 4. Ascites. Manolo Anne MD Chest X-Ray 11/20/16 Signed Impressions: Service Date/Time: Sunday, November 20, 2016 08:15 - CONCLUSION: 1. Considerable improvement in the pulmonary infiltrates. 2. Smaller effusions. Luis Antonio Evangelista Jr., MD Chest CT 11/20/16 Signed Impressions: Service Date/Time: Sunday, November 20, 2016 11:30 - CONCLUSION: Deterioration in the appearance of the chest with increasing size of nodules and consolidation. Worsening of an inflammatory process is suspected. Michael Youssef MD FACR Cervical Spine MRI 11/20/16 Signed Impressions: Service Date/Time: Sunday, November 20, 2016 21:36 - CONCLUSION: 1. 2.4 cm vague area of edema seen to the left of the spinous processes of C7 and T1 concerning for focal inflammatory/infectious change. The spinous processes themselves demonstrate normal signal. 2. Suspected hemangioma at the C7 vertebral body. 3. Fluid in the nasopharynx, oropharynx and hypopharynx. There is an NG tube and ET tube in place. Manolo Anne MD Brain MRI 11/20/16 Signed Impressions: Service Date/Time: Sunday, November 20, 2016 21:36 - CONCLUSION: 1. Abnormal gyriform signal abnormality in the left frontal and parietal regions associated with some minimally increased signal on the diffusion weighted images. Findings are nonspecific. Differential diagnosis includes an area of meningitis or leptomeningeal spread of tumor given history of malignancy. Infarction less likely. No associated mass effect. Recommend further evaluation with MRI brain with contrast to assess for abnormal meningeal enhancement. Bruno Cleaning MD Abdomen/Pelvis CT 11/20/16 Signed Impressions: Service Date/Time: Sunday, November 20, 2016 11:30 - CONCLUSION: Significant aeration appearance of the lungs. Generalized anasarca, negative for abscess. Adults abdominal abscess. Michael Youssef MD FACR Renal Ultrasound 11/15/16 Signed Impressions: Service Date/Time: Tuesday, November 15, 2016 10:26 - CONCLUSION: Normal examination. Katie Nevarez MD Objective Remarks GENERAL: middle-aged male, lying in bed, intubated, sedated, critically ill. SKIN: cool, poorly perfused HEAD: Normocephalic. EYES: No scleral icterus. No injection or drainage. NECK: trachea midline. +JVD CARDIOVASCULAR: Tachycardic, regular rhythm. sinus by tele. Bedside critical care ultrasound: hyperdynamic LV function, RV dilated, preserved function, flattening of the intraventricular septum throughout the cardiac cycle suggestive of RV volume overload. dilated IVC without respiratory variation. RESPIRATORY: bilateral coarse breath sounds in all lung thomas. intubated. APRV 40% fio2, 28/0 I:E 8:1 GASTROINTESTINAL: Abdomen soft, non-tender, nondistended. MUSCULOSKELETAL: No cyanosis, or edema. Neuro: RASS -2, sedated. follows commands. 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 continues to be critically ill, ongoing shock and renal failure. poor prognosis. Plan Neuro: Metabolic encephalopathy - propofol, fentanyl for goal RASS -2. -Sedation vacation when appropriate -UDS: Opiates, Cocaine 11/20: MRI brain: Abnormal gyriform signal abnormality in the left frontal and parietal regions associated with some minimally increased signal on the diffusion weighted images.ddx meningitis or leptomeningeal spread of tumor given history of malignancy. Neuro eval. 11/20: Cervical CT: 2.4 cm vague area of edema seen to the left of the spinous processes of C7 and T1 concerning for focal inflammatory/infectious change. The spinous processes themselves demonstrate normal signal.. Suspected hemangioma at the C7 vertebral body Pulm: Acute hypoxic and hypercarbic respiratory failure Septic pulmonary emboli Pulmonary Edema Severe ARDS - intubated 11/18 for worsening hypoxemia - Continue with vent support keep sat >92%. On PC/AC RR 20, IP: 24, IT: 1.0, PEEP:5 and FIO2 50%. Decrease FIO2 40% -Bronchodilators, ICU vent bundle. -repeat CT chest 11/20: increasing size of nodules and consolidation. - 11/15 CT chest showed cavitary and irregular nodules throughout the lungs bilaterally. CV: Septic Shock Congestive Heart Failure Exacerbation secondary to valvulopathy Severe tricuspid regurgitation Pulmonary Edema - Off pressors keep MAP>65mmHg - Echo showed EF 50-55%, +Vegetations on TV, severe TR : RACHEL Intravascular volume overload - Monitor renal function, I/O's, avoid nephrotoxins -Renal function is improving today with Cr: 3.2 from: 3.8, UOP: 9425 ml in 24 hrs, Bumex 0.5mg/hr - Renal US 11/15: Unremarkable. Renal is following- Dr. young FEN/GI: Acute protein calorie malnutrition- moderate Anion-gap metabolic acidosis Intravascular volume overload Colon cancer on radiation treatment Hepatitis C Start tube feeds- Nepro with goal rate 40ml/hr Protonix 40mg IV daily for GI prophylaxis ID: MRSA Tricuspid Valve infective endocarditis Septic Shock - ID on board - Continue abx per ID ( On daptomycin, Rifampin, Zosyn, Teflaro) monitor CK's. - Echo showed vegetations on TV. - 11/15, 11/16, 09/17 BC: MRSA, 11/18 BC: NGTD - 11/15 Urine cx: MRSA, 11/18 sputum: MRSA Heme: Anemia secondary to chronic illness Thrombocytopenia secondary to hepatic dysfunction - Monitor CBC - no indication for transfusion at this time. Endo: Hyperglycemia of critical illness - SSI with Accu-Cheks for glycemic control. GI prophylaxis with Protonix 40 milligrams daily and DVT prophylaxis with SCDs. Not on chemical anticoagulation prophylaxis due to thrombocytopenia. Dispo: remain in ICU. very critically ill. Lines: Right subclavian CVP placed 11/18 CCT 30 mins Efrain Ortiz MD Nov 21, 2016 09:21
[2016-11-21 10:27] LABS: BLOOD GAS BASE EXCESS 1.7 mmol/L (-2-2); BLOOD GAS CARBOXYHEMOGLOBIN 1.1 % (0-4); BLOOD GAS HCO3 26 mmol/L (22-26); BLOOD GAS METHEMOGLOBIN 1.6 % (0-2); BLOOD GAS O2 HGB SATURATION 94 % (90-100); BLOOD GAS OXYGEN CONTENT 11.6 Vol % (12.0-20.0); BLOOD GAS PCO2 38 mmHg (38-42); BLOOD GAS PO2 97 mmHg (61-120); BLOOD GAS TOTAL HGB 8.7 G/DL (12.0-16.0); CRITICAL VALUE NO; DRAW SITE RT RADIAL; FIO2 40 %; NUMBER OF ARTERIAL PUNCTURES 1; OXYGEN DEVICE VENTILATOR; STAT NO; TEMP CORR TO 98.6; ULNAR PULSE PRESENT; VENT SETTINGS PC/AC RATE 20
--- NOTE | 2016-11-21 10:27 | HHI.IDPN ---
Subjective Subjective Remarks ID COVERAGE is a 45 y/o CM with history of Rectal Cancer (Invasive moderately differentiated Adenocarcinoma with no prior lung or distant mets), and has no port or PICC line and has been receiving oral chemotherapy. Patient is followed by Dr. Vielka Harrell. Patient also sees colorectal surgeon and has undergone colonoscopy but no definite surgery. Patient also has been seeing Dr. Santana radiation oncologist and has been undergoing radiation therapy. Reportedly, the patient's last radiation therapy was on Wednesday before admission. Admitted with sepsis. Intubated. BC with MRSA. Sputum with MRSA, TTE with TV vegetatuin and severe TR. CTA with findings of pulmonary septic emboli. MRI cervical abnormal finidngs of inflammatory changes to the left of C7-T1 Infectious disease was consulted for the management of sepsis, pneumonia in an immune compromised patient. Notes reviewed Sedated on the vent Temps ok Off pressors All BC with MRSA, up to 11/18 Creatinine elevated, has high UO WBC lower Antibiotics Dapto IV Teflaro IV Zosyn IV Rifampin Lines Line sites with no e.o infection. Past Medical History reviewed. Allergies: Coded Allergies: No Known Allergies (Unverified , 11/15/16) Objective . Vital Signs Date Time Temp Pulse Resp B/P (MAP) Pulse Ox O2 Delivery O2 Flow Rate FiO2 11/21/16 08:16 99 50 11/21/16 06:00 123 11/21/16 04:00 97.8 115 23 99/56 (70) 100 11/21/16 04:00 115 11/21/16 04:00 60 11/21/16 03:39 100 60 11/21/16 02:00 116 11/21/16 00:27 100 70 11/21/16 00:00 98.3 124 31 143/81 (101) 100 11/21/16 00:00 124 11/21/16 00:00 100 11/20/16 21:05 100 100 11/20/16 20:54 95 100 11/20/16 20:00 98.2 114 28 113/69 (84) 95 11/20/16 20:00 100 11/20/16 20:00 114 11/20/16 18:00 112 11/20/16 18:00 112 24 111/63 (79) 95 11/20/16 17:06 95 100 11/20/16 16:00 109 11/20/16 16:00 98.2 109 21 79/42 (54) 93 11/20/16 16:00 100 11/20/16 14:00 106 11/20/16 12:13 91 100 11/20/16 12:00 40 11/20/16 12:00 117 11/20/16 12:00 98.3 117 29 126/69 (88) 93 11/20/16 11:30 97 100 . Laboratory Tests Test 11/20/16 03:43 11/21/16 04:00 White Blood Count 21.4 TH/MM3 11.7 TH/MM3 Red Blood Count 3.53 MIL/MM3 3.57 MIL/MM3 Hemoglobin 9.1 GM/DL 8.8 GM/DL Hematocrit 28.1 % 27.4 % Mean Corpuscular Volume 79.6 FL 76.6 FL Mean Corpuscular Hemoglobin 25.8 PG 24.6 PG Mean Corpuscular Hemoglobin Concent 32.4 % 32.1 % Red Cell Distribution Width 16.9 % 16.2 % Platelet Count 121 TH/MM3 88 TH/MM3 Mean Platelet Volume 9.0 FL 8.1 FL Neutrophils (%) (Auto) 96.0 % Lymphocytes (%) (Auto) 2.0 % Monocytes (%) (Auto) 1.7 % Eosinophils (%) (Auto) 0.1 % Basophils (%) (Auto) 0.2 % Neutrophils # (Auto) 11.2 TH/MM3 Lymphocytes # (Auto) 0.2 TH/MM3 Monocytes # (Auto) 0.2 TH/MM3 Eosinophils # (Auto) 0.0 TH/MM3 Basophils # (Auto) 0.0 TH/MM3 CBC Comment AUTO DIFF Differential Comment AUTO DIFF CONFIRMED Platelet Estimate LOW Platelet Morphology Comment NORMAL Laboratory Tests Test 11/20/16 03:43 11/20/16 09:48 11/21/16 04:00 Blood Urea Nitrogen 83 MG/DL 80 MG/DL Creatinine 3.81 MG/DL 3.21 MG/DL Random Glucose 98 MG/DL 147 MG/DL Total Protein 6.8 GM/DL 6.7 GM/DL Calcium Level 6.6 MG/DL 7.1 MG/DL Sodium Level 137 MEQ/L 145 MEQ/L Potassium Level 4.9 MEQ/L 3.4 MEQ/L Chloride Level 105 MEQ/L 108 MEQ/L Carbon Dioxide Level 18.7 MEQ/L 26.5 MEQ/L Anion Gap 13 MEQ/L 11 MEQ/L Estimat Glomerular Filtration Rate 17 ML/MIN 21 ML/MIN Protein Corrected Calcium 6.8 MG/DL 7.3 MG/DL Total Bilirubin 2.6 MG/DL 2.9 MG/DL Direct Bilirubin 2.2 MG/DL Indirect Bilirubin 0.4 MG/DL Aspartate Amino Transf (AST/SGOT) 122 U/L 64 U/L Alanine Aminotransferase (ALT/SGPT) 47 U/L 38 U/L Alkaline Phosphatase 119 U/L 132 U/L Albumin 1.6 GM/DL 1.4 GM/DL Lactic Acid Level 0.9 mmol/L Total Creatine Kinase 356 U/L Creatine Kinase MB 2.6 NG/ML Creatine Kinase MB % 0.7 % Microbiology Date/Time Source Procedure Growth Status 11/20/16 13:42 Blood Peripheral Aerobic Blood Culture Pending Received 11/20/16 13:42 Blood Peripheral Anaerobic Blood Culture Pending Received 11/20/16 13:35 Blood Peripheral Aerobic Blood Culture Pending Received 11/20/16 13:35 Blood Peripheral Anaerobic Blood Culture Pending Received 11/18/16 16:45 Blood Peripheral Aerobic Blood Culture - Final S. Aureus Mrsa Resulted 11/18/16 16:45 Blood Peripheral Anaerobic Blood Culture - Preliminary NO GROWTH IN 2 DAYS Resulted 11/18/16 16:30 Blood Peripheral Aerobic Blood Culture - Preliminary NO GROWTH IN 2 DAYS Resulted 11/18/16 16:30 Blood Peripheral Anaerobic Blood Culture - Preliminary NO GROWTH IN 2 DAYS Resulted Imaging Last Impressions Chest X-Ray 11/17/16 0000 Signed Impressions: Service Date/Time: Thursday, November 17, 2016 11:07 - CONCLUSION: Development of diffuse pulmonary infiltrates with consolidation additionally in the left lower lobe. Chencho Chaparro MD Renal Ultrasound 11/15/16 0000 Signed Impressions: Service Date/Time: Tuesday, November 15, 2016 10:26 - CONCLUSION: Normal examination. Katie Nevarez MD Chest CT 11/15/16 0000 Signed Impressions: Service Date/Time: Tuesday, November 15, 2016 09:10 - CONCLUSION: Multiple new solid and cavitary irregular nodules seen throughout the lungs bilaterally. These may represent foci of metastatic disease, however, given that these are new as compared to the prior exam of July 2016 concern is for possible septic emboli given the cavitary lesions. Small right-sided pleural effusion also favors possible infectious source. Katie Nevarez MD Physical Exam GENERAL: Sedated on the vent, looks comfortable SKIN: No rashes, ecchymoses or lesions. Cool and dry. HEAD: Atraumatic. Normocephalic. No temporal or scalp tenderness. EYES: Pupils equal round and reactive. Extraocular motions intact. No scleral icterus. No injection or drainage. ENT: Intubated. Nose without bleeding, purulent drainage or septal hematoma. NECK: Trachea midline. Supple, nontender, no meningeal signs. CARDIOVASCULAR: Tachycardic, no rub RESPIRATORY: Decreased AE in bases. GASTROINTESTINAL: Abdomen soft, non-tender, nondistended. MUSCULOSKELETAL: Extremities without clubbing, cyanosis, or edema. NEUROLOGICAL: Sedated. Psych could not be assessed. IV line sites with no evidence of infection. Assessment & Plan Remarks Septic Shock with MODS (fever, tachy, low BP, bandemia, source: lung, endocarditis) MRSA bacteremia, TV endocarditis with severe TR. Lung lesions: septic emboli most likely. Other differentials include cancer related mets. Very less likely to be fungal or TB. Acute renal failure: prerenal, sepsis. Acute metabolic encephalopathy: sepsis, less likely to be meningitis. Hyponatremia: Infection, metabolic, meningitis Hepatitis C positive. Recommendations: Continue Daptomycin IV (Re: Worsening clinically, resp distress, back pain, neck pain ? further dissemination). Does not cover Pneumonia. Continue Rifampin oral (cannot use Genta due to ARF). Follow LFTs if increases further consider stopping. If BCX remain negative at 48 hrs ok to stop Rifampin. Continue Teflaro IV (MRSA bacteremia, Cannot use Nephrotoxins plus Vanco MAHOGANY 2 and clinically failing) Stop Zosyn Follow cultures Follow clinically. Repeat BC to document clearing Anna Meier MD Nov 21, 2016 10:27
[2016-11-21] MEDS: DAPTOMYCIN IV SCH (12:53)
[2016-11-21] MEDS: SODIUM CHLORIDE 0.9% IV SCH ×3 (12:53→22:03)
--- NOTE | 2016-11-21 13:31 | HHI.NPPN ---
Subjective History of Present Illness 45 y/o male admitted on 11/15 for fever and Shortness of breath, Brought in by his mother. His only hx of Hep C, IVDA, and colorectal cancer for which he had radiation therapy last week. He was septic on arrival, hypotensive and febrile. He did require intubation for respiratory failure, continues on ventilator. 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 Additional Remarks Patient remain intubated and sedated. Objective Data Data 11/21/16 11/22/16 19:00 07:00 Intake Total 200 ml Balance 200 ml IV Total 200 ml Vital Signs Date Time Temp Pulse Resp B/P (MAP) Pulse Ox O2 Delivery O2 Flow Rate FiO2 11/21/16 12:00 40 11/21/16 11:59 99 40 11/21/16 10:00 119 11/21/16 08:16 99 50 11/21/16 08:00 99.4 114 21 91/52 (65) 95 11/21/16 08:00 50 11/21/16 08:00 123 11/21/16 08:00 114 11/21/16 06:00 123 11/21/16 04:00 97.8 115 23 99/56 (70) 100 11/21/16 04:00 115 11/21/16 04:00 60 11/21/16 03:39 100 60 11/21/16 02:00 116 11/21/16 00:27 100 70 11/21/16 00:00 98.3 124 31 143/81 (101) 100 11/21/16 00:00 124 11/21/16 00:00 100 11/20/16 21:05 100 100 11/20/16 20:54 95 100 11/20/16 20:00 98.2 114 28 113/69 (84) 95 11/20/16 20:00 100 11/20/16 20:00 114 11/20/16 18:00 112 11/20/16 18:00 112 24 111/63 (79) 95 11/20/16 17:06 95 100 11/20/16 16:00 109 11/20/16 16:00 98.2 109 21 79/42 (54) 93 11/20/16 16:00 100 11/20/16 14:00 106 -: 11/21/16 0400 11/21/16 0400 Microbiology 11/20/16 Aerobic Blood Culture - Preliminary, Resulted NO GROWTH IN 1 DAY 11/20/16 Anaerobic Blood Culture - Preliminary, Resulted NO GROWTH IN 1 DAY 11/20/16 Aerobic Blood Culture - Preliminary, Resulted NO GROWTH IN 1 DAY 11/20/16 Anaerobic Blood Culture - Preliminary, Resulted NO GROWTH IN 1 DAY Physical Exam General Appearance Remarks Intubated and sedated. Eyes Eye Exam: Pupils Equal Throat Throat Exam: Oral Mucosa Poplar & Moist Neck Neck Exam: Neck Supple Pulmonary Resp Exam: Breath Sounds Equal, Rhonchi, Decreased Bases, Diminished Breath Sounds, Poor Inspiratory Effort Cardiology CV Exam: Regular, Normal Sinus Rhythm Gastrointestinal/Abdomen GI Exam: Soft, Non-Tender, Bowel Sounds Present, Non-Distended Extremeties Extremities Exam: Trace Edema Neurologic Neuro Exam: Sedated Assessment/Plan Problem List: (1) Acute renal failure ICD Codes: N17.9 - Acute kidney failure, unspecified Plan: He has normal renal function at baseline, in August his creatinine was 1 RACHEL likely from sepsis syndrome, hypotension, decreased renal perfusion; possible progression to ATN he has been hypotensive overnight but as of now he is off pressor support ; resume if needed to maintain MAP > 65mmHg also has septic embolic, check complement levels renal US negative for obstruction UA with infection, culture in process he is non oliguric follow renal function avoid IVF, nephrotoxins, renally dose medications when appropriate Continue Bumex, urine out put is good. Creatinine decreased. (2) Severe sepsis ICD Codes: A41.9 - Sepsis, unspecified organism; R65.20 - Severe sepsis without septic shock Status: Acute Plan: with MRSA bacteremia ID following + TV endocarditis, septic emboli continue antibiotic therapy, he is on Teflaro, Zosyn and daptomycin (3) Rectal cancer ICD Codes: C20 - Malignant neoplasm of rectum Status: Acute Plan: has had radiation as recent as last week Laura Hutton MD Nov 21, 2016 13:31
[2016-11-21] MEDS: ACYCLOVIR IV SCH ×2 (14:43→22:03)
[2016-11-21] MEDS ORDERED: MIDAZOLAM HCL 2 MG/2 ML VIAL IV PUSH ONE (16:30)
--- NOTE | 2016-11-21 16:40 | MB ---
cc: DARYL RUSSO MD DATE OF : 74 DATE OF CONSULTATION 11/21/16 REASON FOR CONSULTATION Abnormal MRI and encephalopathy. HISTORY OF PRESENT ILLNESS This is a 44-year-old man with a history of colon cancer on radiation treatment last a week ago for the past couple months followed also by Dr. Harrell, her oncologist, and Dr. Galvan who presented to the hospital with a couple days of shortness of breath, pleuritic chest pain, nausea. He was found with a temperature of 101.4 in the emergency room, heart rate in the 120s to 130s. Chest x-ray showed bilateral mid air space opacities. CT chest showed multiple new solid cavitary irregular nodules in the lungs and right side pleural effusion. Neurology is asked to evaluate him for ongoing encephalopathy and abnormal MRI. PAST MEDICAL HISTORY As stated has colon cancer. ALLERGIES None reported. SOCIAL HISTORY Occasionally smokes and drinks. MEDICATIONS Home medicines, please refer them MAR. FAMILY HISTORY Noncontributory. PHYSICAL EXAMINATION VITAL SIGNS: Temperature 99.4, heart rate 119, respiratory rate 21, satting at 99% FIO2 50%, blood pressure is 91/52. HEENT: Eyes are open. He looks towards examiner but does not track, does not follow commands. His pupils are reactive. Tone is intact. Withdraws to painful stimuli. Gait and cerebellar cannot be assessed. He is still sedated with fentanyl and Diprivan as well as on a Bumex drip. CARDIOLOGY STUDIES He had an echo that showed vegetations on his tricuspid valve and EF of 50-55%. He was intubated on the 18 of November. He developed septic shock. Renal function decompensated. IMAGING STUDIES He has an MRI yesterday of the brain that showed no abnormal gyriform abnormality of the left frontal and parietal regions associated with minimally increased signal on the diffusion weighted imaging, meningitis versus leptomeningeal spread of a tumor is the differential. He had a CT of the cervical spine that showed a 2.4 cm vague area of edema to the left of the spinous process of C7-T1 concerning for inflammatory infectious change. He also was found with besides the vegetations of the tricuspid valve, severe tricuspid regurgitation. His MRI of the brain was done without contrast however. LABORATORY DATA Labs are reviewed. IMPRESSION Abnormal MRI of the brain as described with signal abnormality left frontal parietal region with minimally increased signal and BWI certainly concerning for a meningitic versus leptomeningeal spread of a tumor. He is encephalopathic, most likely from sepsis. RECOMMENDATION I would consult his oncologist, but also would have him undergo a spinal tap for routine studies plus cytology. I will get an EEG as well and, if his renal function has improved to the point where it is feasible, at some point an MRI with contrast of the brain would be indicated. Continue current care. Further recommendations will be made. MD GRZEGORZ Suero/ /11:42 AM /4:28 PM
[2016-11-21] MEDS: BUMETANIDE INJ 100 ML IV SCH (17:46)
--- NOTE | 2016-11-21 20:18 | MG ---
cc: DARYL RUSSO M.D. Lab No: [id number] Date:11/21/16 Age: 45 Sex: M Race: DATE OF 1970 ROOM 504 Intubated with photic done, sedated, Diprivan 50 micrograms, fentanyl at 250 micrograms. Cannot do the study without sedation, too restless. A 45-year-old man with ___, abnormal MRI, history of ___ cancer. Antibiotics medication as well as sedating medicine. DESCRIPTION OF RECORD The patient exhibits 1-2 Hz background rhythm. ____. that he had EKG looks like a sinus tachycardia Photic stimulation does not elicit any significant driving response. IMPRESSION Abnormal EEG due to moderately severe slowing consistent with an encephalopathic process such as a combination of medicine effect. No evidence of any epileptiform features. MD GRZEGORZ Suero/BERT /6:52 PM /8:08 PM
[2016-11-22] VITALS (24 sets, daily range): BP systolic 84–149; BP diastolic 48–81; PULSE 108–213; RESP 19–26; TEMP 99–102.1; O2SAT 90–100
[2016-11-22] MEDS: fentaNYL 2,500 MCG/NS 250 ML IV PRN ×3 (02:16→21:54)
[2016-11-22] MEDS: PROPOFOL 1000 MG/100 ML IV PRN ×5 (02:22→23:12)
[2016-11-22] MEDS: RESP: ALBUTEROL 2.5 MG/IPRATROPIUM 0.5 MG NEB (SCH) INH ×4 (03:38→20:32)
[2016-11-22 05:00] LABS: AUTOMATED NEUTROPHIL # 7.9 TH/MM3 (1.8-7.7); BASOPHIL % 0.1 % (0.0-2.0); EOSINOPHIL % 0.5 % (0.0-4.0); HEMATOCRIT 21.1 % (39.0-51.0); HEMO FLAGS DIFF FINAL; LYMPH % 6.5 % (9.0-44.0); LYMPHOCYTE # 0.6 TH/MM3 (1.0-4.8); MEAN CELL VOLUME 77.3 FL (80.0-100.0); MEAN CORPUSCULAR HEMOGLOBIN 26.8 PG (27.0-34.0); MEAN CORPUSCULAR HGB CONC 34.7 % (32.0-36.0); MONO % 2.4 % (0.0-8.0); NEUT % 90.5 % (16.0-70.0); PLATELET COUNT 105 TH/MM3 (150-450); RED BLOOD COUNT 2.73 MIL/MM3 (4.50-5.90); RED CELL DISTRIBUTION WIDTH 15.9 % (11.6-17.2); WHITE BLOOD COUNT 8.8 TH/MM3 (4.0-11.0)
[2016-11-22] MEDS: INSULIN NovoLIN REGULAR SUPPLEMENTAL SCALE SQ SCH ×4 (05:00→23:00)
[2016-11-22 05:17] LABS: BICARBONATE 31.8 MEQ/L (21.0-32.0); INDIRECT BILIRUBIN 0.3 MG/DL (0.0-0.8)
[2016-11-22 05:19] LABS: POTASSIUM 2.7 MEQ/L (3.5-5.1)
[2016-11-22 05:37] LABS: CKMB 1.1 NG/ML (0.5-3.6)
[2016-11-22 05:46] LABS: APTT (PATIENT) 28.3 SEC (24.3-30.1); INTERNATIONAL NORMALIZED RATIO 1.1 RATIO
[2016-11-22] MEDS: VASOPRESSIN INJ 40 UNITS in DEXTROSE 5% IN WATER 100ML INJ 98 ML IV SCH ×2 (05:54)
[2016-11-22] MEDS: CEFTAROLINE INJ 400 MG in SODIUM CHLORIDE 0.9% INJ 100 ML IV SCH ×3 (05:58→18:02)
[2016-11-22] MEDS: ACYCLOVIR IV SCH ×3 (06:24→21:52)
[2016-11-22] MEDS: SODIUM CHLORIDE 0.9% IV SCH ×4 (06:24→21:52)
--- NOTE | 2016-11-22 07:24 | HHI.CCPN ---
Subjective Remarks/Hospital Course The patient is a 45-year-old male with past medical history of colon cancer on radiation treatment last session on Wednesday and has been on radiation for the past 2-3 months being followed by Dr. Harrell, his oncologist, and Dr. Galvan. He presented to [facility] emergency department with a couple of days history of shortness of breath, pleuritic chest pain with deep inspiration , dry cough and feeling nauseous. The patient denies any exposure to sick contacts. In addition, he denies any prior history of pneumonia or flu. He was found to have a temperature of 101.4 orally in the ER. In addition hewas tachycardiac with heart rate of 120s to 130s. Chest x-ray in the ER showed new bilateral mild air space opacities. The patient subsequently had CT scan of the chest which showed multiple new solid and cavitary irregular nodules seen throughout the lungs bilaterally, and small right-sided pleural effusion. His laboratory data is significant for renal failure with a creatinine level of 2.29 and hypokalemia with a potassium level of 2.8. His lactic acid level measured at 1.2. The patient also is thrombocytopenic with a platelet count of 55, however, his INR is 1.2. In the ED he was given three liters of Crystalloid in addition to cefepime, azithromycin, Tylenol and DuoNeb. When seen in the ER he was on room air oxygen with saturation 96%. However, tachycardiac with heart rate of 123 and blood pressure 154/75. He denies any vomiting, abdominal pain. 11/16 No events overnight. Patient is lying in bed in NAD. Afebrile. renal function is improving with Cr: 1.54 from 2.0. Echo from yesterday showed vegetation on TV, EF 50-55%. 11/17 Patient is lying in bed in NAD. Afebrile. 11/18: decompensated overnight. now intubated, on vasopressors, on 100% fio2 APRV with paO2 72. severe ARDS likely combination of pulmonary septic emboli combined with CHF from severe TR, however also now in septic shock. 11/19: persistently hypoxic on APRV. fio2 weaned but still requiring high Phigh in order to remain oxygenated. Cr continues to rise with minimal uop (~300cc/24h ) despite bumex drip. vasopressors continue and remains in shock. 11/20 Patient is sedated with Diprivan, Fentanyl and intubated. On Levophed 8 mics and Vasopressin 0.04 mics. Afebrile. On Bumex drip. 11/21 Patient remains intubated and sedated with Diprivan and Fentanyl. Afebrile. On Bumex drip 0.5mg/hr. Renal function is improving with Cr: 3.21 from 3.81 with UOP: 9424ml in 24 hrs Off all pressors. 11/22 Patient remains sedated with Diprivan, Fentanyl and intubated. T:100.4 at 4 am. WBC is trending down. Renal function is imprvong with Cr: 2.59 today from 3.21 on Bumex drip 0.5mg/hr. Objective Vital Signs Date Time Temp Pulse Resp B/P (MAP) Pulse Ox O2 Delivery O2 Flow Rate FiO2 11/22/16 06:00 117 11/22/16 04:40 95 50 11/22/16 04:00 100.4 20 100/57 (71) Intake and Output 11/22/16 11/22/16 11/22/16 07:59 15:59 23:59 Intake Total 1723 ml Output Total 2700 ml Balance -977 ml Result Diagram: 11/22/16 04111/22/16 0410 Other Results Laboratory Tests Test 11/21/16 10:20 11/22/16 04:10 Blood Gas Puncture Site RT RADIAL Blood Gas Patient Temperature 98.6 Blood Gas HCO3 26 mmol/L Blood Gas Base Excess 1.7 mmol/L Blood Gas Oxygen Saturation 94 % Arterial Blood pH 7.44 Arterial Blood Partial Pressure CO2 38 mmHg Arterial Blood Partial Pressure O2 97 mmHg Arterial Blood Oxygen Content 11.6 Vol % Arterial Blood Carboxyhemoglobin 1.1 % Arterial Blood Methemoglobin 1.6 % Blood Gas Hemoglobin 8.7 G/DL Oxygen Delivery Device VENTILATOR Blood Gas Ventilator Setting PC/AC RATE 20 Blood Gas Inspired Oxygen 40 % White Blood Count 8.8 TH/MM3 Red Blood Count 2.73 MIL/MM3 Hemoglobin 7.3 GM/DL Hematocrit 21.1 % Mean Corpuscular Volume 77.3 FL Mean Corpuscular Hemoglobin 26.8 PG Mean Corpuscular Hemoglobin Concent 34.7 % Red Cell Distribution Width 15.9 % Platelet Count 105 TH/MM3 Mean Platelet Volume 8.7 FL Neutrophils (%) (Auto) 90.5 % Lymphocytes (%) (Auto) 6.5 % Monocytes (%) (Auto) 2.4 % Eosinophils (%) (Auto) 0.5 % Basophils (%) (Auto) 0.1 % Neutrophils # (Auto) 7.9 TH/MM3 Lymphocytes # (Auto) 0.6 TH/MM3 Monocytes # (Auto) 0.2 TH/MM3 Eosinophils # (Auto) 0.0 TH/MM3 Basophils # (Auto) 0.0 TH/MM3 CBC Comment DIFF FINAL Differential Comment Prothrombin Time 12.0 SEC Prothromb Time International Ratio 1.1 RATIO Activated Partial Thromboplast Time 28.3 SEC Blood Urea Nitrogen 70 MG/DL Creatinine 2.59 MG/DL Random Glucose 135 MG/DL Total Protein 6.9 GM/DL Albumin 1.3 GM/DL Calcium Level 7.6 MG/DL Alkaline Phosphatase 308 U/L Aspartate Amino Transf (AST/SGOT) 60 U/L Alanine Aminotransferase (ALT/SGPT) 34 U/L Total Bilirubin 2.0 MG/DL Direct Bilirubin 1.7 MG/DL Sodium Level 155 MEQ/L Potassium Level 2.7 MEQ/L Chloride Level 114 MEQ/L Carbon Dioxide Level 31.8 MEQ/L Anion Gap 9 MEQ/L Estimat Glomerular Filtration Rate 27 ML/MIN Indirect Bilirubin 0.3 MG/DL Total Creatine Kinase 523 U/L Creatine Kinase MB 1.1 NG/ML Creatine Kinase MB % 0.2 % Imaging Last Impressions Thoracic Spine MRI 11/20/16 Signed Impressions: Service Date/Time: Sunday, November 20, 2016 21:36 - CONCLUSION: 1. No focal abnormality within the thoracic spine. 2. There is edema/inflammatory change seen in the soft tissues to the left of the C7 and T1 spinous processes better seen on the cervical spine MRI examination. 3. Cavitary lesions in the lungs. Manolo Anne MD Lumbar Spine MRI 11/20/16 Signed Impressions: Service Date/Time: Sunday, November 20, 2016 21:36 - CONCLUSION: 1. No areas of significant stenosis. The disc spaces are preserved. 2. Mild facet hypertrophy at the L3-L4 and L4-L5 old. 3. Nonspecific areas of edema within the soft tissues adjacent to the spinous processes throughout the lumbar spine. This can be seen secondary to some dependent edema. Inflammatory change cannot be excluded. It does appear fairly symmetric when comparing right to left. 4. Ascites. Manolo Anne MD Chest X-Ray 11/20/16 Signed Impressions: Service Date/Time: Sunday, November 20, 2016 08:15 - CONCLUSION: 1. Considerable improvement in the pulmonary infiltrates. 2. Smaller effusions. Luis Antonio Evangelista Jr., MD Chest CT 11/20/16 Signed Impressions: Service Date/Time: Sunday, November 20, 2016 11:30 - CONCLUSION: Deterioration in the appearance of the chest with increasing size of nodules and consolidation. Worsening of an inflammatory process is suspected. Michael Youssef MD FACR Cervical Spine MRI 11/20/16 Signed Impressions: Service Date/Time: Sunday, November 20, 2016 21:36 - CONCLUSION: 1. 2.4 cm vague area of edema seen to the left of the spinous processes of C7 and T1 concerning for focal inflammatory/infectious change. The spinous processes themselves demonstrate normal signal. 2. Suspected hemangioma at the C7 vertebral body. 3. Fluid in the nasopharynx, oropharynx and hypopharynx. There is an NG tube and ET tube in place. Manolo Anne MD Brain MRI 11/20/16 Signed Impressions: Service Date/Time: Sunday, November 20, 2016 21:36 - CONCLUSION: 1. Abnormal gyriform signal abnormality in the left frontal and parietal regions associated with some minimally increased signal on the diffusion weighted images. Findings are nonspecific. Differential diagnosis includes an area of meningitis or leptomeningeal spread of tumor given history of malignancy. Infarction less likely. No associated mass effect. Recommend further evaluation with MRI brain with contrast to assess for abnormal meningeal enhancement. Bruno Cleaning MD Abdomen/Pelvis CT 11/20/16 Signed Impressions: Service Date/Time: Sunday, November 20, 2016 11:30 - CONCLUSION: Significant aeration appearance of the lungs. Generalized anasarca, negative for abscess. Adults abdominal abscess. Michael Youssef MD FACR Renal Ultrasound 11/15/16 Signed Impressions: Service Date/Time: Tuesday, November 15, 2016 10:26 - CONCLUSION: Normal examination. Katie Nevarez MD Objective Remarks GENERAL: middle-aged male, lying in bed, intubated, sedated, critically ill. SKIN: cool, poorly perfused HEAD: Normocephalic. EYES: No scleral icterus. No injection or drainage. NECK: trachea midline. +JVD CARDIOVASCULAR: Tachycardic, regular rhythm. sinus by tele. Bedside critical care ultrasound: hyperdynamic LV function, RV dilated, preserved function, flattening of the intraventricular septum throughout the cardiac cycle suggestive of RV volume overload. dilated IVC without respiratory variation. RESPIRATORY: bilateral coarse breath sounds in all lung thomas. intubated. APRV 40% fio2, 28/0 I:E 8:1 GASTROINTESTINAL: Abdomen soft, non-tender, nondistended. MUSCULOSKELETAL: No cyanosis, or edema. Neuro: RASS -2, sedated. follows commands. 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 continues to be critically ill, ongoing shock and renal failure. poor prognosis. Plan Neuro: Metabolic encephalopathy - propofol, fentanyl for goal RASS -2. -Sedation vacation when appropriate -UDS: Opiates, Cocaine 11/20: MRI brain: Abnormal gyriform signal abnormality in the left frontal and parietal regions associated with some minimally increased signal on the diffusion weighted images.ddx meningitis or leptomeningeal spread of tumor given history of malignancy. Neuro is following 11/20: Cervical CT: 2.4 cm vague area of edema seen to the left of the spinous processes of C7 and T1 concerning for focal inflammatory/infectious change. The spinous processes themselves demonstrate normal signal.. Suspected hemangioma at the C7 vertebral body 11/21 EEG: Encephalopathy, no epileptiform features. Pulm: Acute hypoxic and hypercarbic respiratory failure Septic pulmonary emboli Pulmonary Edema Severe ARDS - intubated 11/18 for worsening hypoxemia - Continue with vent support keep sat >92%. On PC/AC RR 20, IP: 24, IT: 1.0, PEEP:5 and FIO2 50%. Decrease FIO2 40% -Bronchodilators, ICU vent bundle. -repeat CT chest 11/20: increasing size of nodules and consolidation. - 11/15 CT chest showed cavitary and irregular nodules throughout the lungs bilaterally. CV: Septic Shock Congestive Heart Failure Exacerbation secondary to valvulopathy Severe tricuspid regurgitation Pulmonary Edema - Off pressors keep MAP>65mmHg - Echo showed EF 50-55%, +Vegetations on TV, severe TR : RACHEL Intravascular volume overload Hypernatremia - Monitor renal function, I/O's, avoid nephrotoxins -Renal function is improving today with Cr: 2.59 today from 3.2 , UOP: 6050 ml in 24 hrs, Place on Free water 300ml Q6 monitor sodium level, d/c Bumex drip. - Renal US 11/15: Unremarkable. Renal is following- Dr. young FEN/GI: Acute protein calorie malnutrition- moderate Anion-gap metabolic acidosis Intravascular volume overload Colon cancer on radiation treatment Hepatitis C On tube feeds- Nepro with goal rate 40ml/hr Protonix 40mg IV daily for GI prophylaxis ID: MRSA Tricuspid Valve infective endocarditis s/p Septic Shock - ID on board - Continue abx per ID ( On daptomycin, Rifampin, Teflaro, Acyclovir) monitor CK' s. -LP ordered by neuro discussed with ID. - Echo showed vegetations on TV. - 11/15, 11/16, 09/17 BC: MRSA, 11/18 BC: MRSA - 11/15 Urine cx: MRSA, 11/18 sputum: MRSA -BC 11/20,11/21,11/22: NGTD Heme: Anemia secondary to chronic illness Thrombocytopenia secondary to hepatic dysfunction - Monitor CBC - no indication for transfusion at this time. Endo: Hyperglycemia of critical illness - SSI with Accu-Cheks for glycemic control. GI prophylaxis with Protonix 40 milligrams daily and DVT prophylaxis with SCDs. Not on chemical anticoagulation prophylaxis due to thrombocytopenia. Dispo: remain in ICU. very critically ill. Lines: Right subclavian CVP placed 11/18 CCT 30 mins Efrain Ortiz MD Nov 22, 2016 07:24
[2016-11-22] MEDS ORDERED: POTASSIUM CHLOR 40 MEQ PREMIX 100 ML IV ONE (08:00)
[2016-11-22] MEDS: FREE WATER G-TUBE SCH ×3 (08:16→17:54)
[2016-11-22] MEDS: DOCUSATE SODIUM 50 MG/SENNA 8.6 MG TAB PO SCH ×2 (08:16→21:52)
[2016-11-22] MEDS: PANTOPRAZOLE SODIUM 40 MG VIAL IV SCH (08:16)
[2016-11-22] MEDS: RIFAMPIN 150 MG CAP PO SCH ×2 (08:16→21:52)
--- NOTE | 2016-11-22 10:01 | HHI.IDPN ---
Subjective Subjective Remarks ID COVERAGE is a 45 y/o CM with history of Rectal Cancer (Invasive moderately differentiated Adenocarcinoma with no prior lung or distant mets), and has no port or PICC line and has been receiving oral chemotherapy. Patient is followed by Dr. Vielka Harrell. Patient also sees colorectal surgeon and has undergone colonoscopy but no definite surgery. Patient also has been seeing Dr. Santana radiation oncologist and has been undergoing radiation therapy. Reportedly, the patient's last radiation therapy was on Wednesday before admission. Admitted with sepsis. Intubated. BC with MRSA. Sputum with MRSA, TTE with TV vegetatuin and severe TR. CTA with findings of pulmonary septic emboli. MRI cervical abnormal finidngs of inflammatory changes to the left of C7-T1 Infectious disease was consulted for the management of sepsis, pneumonia in an immune compromised patient. Notes reviewed Opens eyes when stimulated, did not follow, did not track Temps low grade Not on pressors All BC with MRSA, up to 11/18 Creatinine elevated, decreasing, has good UO WBC lower Antibiotics Dapto IV Teflaro IV Rifampin Lines Line sites with no e.o infection. Past Medical History reviewed. Allergies: Coded Allergies: No Known Allergies (Unverified , 11/15/16) Objective . Vital Signs Date Time Temp Pulse Resp B/P (MAP) Pulse Ox O2 Delivery O2 Flow Rate FiO2 11/22/16 08:06 95 50 11/22/16 08:00 50 11/22/16 06:00 117 11/22/16 04:40 95 50 11/22/16 04:00 50 11/22/16 04:00 100.4 121 20 100/57 (71) 94 11/22/16 04:00 121 11/22/16 02:00 116 11/22/16 01:03 94 50 11/22/16 00:00 99.0 116 20 84/48 (60) 94 11/22/16 00:00 116 11/22/16 00:00 50 11/21/16 22:30 94 50 11/21/16 22:00 119 11/21/16 21:00 94 50 11/21/16 20:00 119 11/21/16 20:00 99.4 119 20 102/58 (73) 93 11/21/16 20:00 50 11/21/16 18:00 126 11/21/16 16:00 99.4 122 24 109/56 (73) 94 11/21/16 16:00 126 11/21/16 16:00 99.1 126 21 100/59 (73) 93 11/21/16 16:00 50 11/21/16 15:57 93 50 11/21/16 14:00 112 11/21/16 12:00 122 11/21/16 12:00 40 11/21/16 12:00 99.4 122 24 109/56 (73) 94 11/21/16 11:59 99 40 11/21/16 10:00 119 11/22/16 11/22/16 11/23/16 15:00 23:00 07:00 Intake Total 155 ml Balance 155 ml IV Total 155 ml . Laboratory Tests Test 11/21/16 04:00 11/22/16 04:10 White Blood Count 11.7 TH/MM3 8.8 TH/MM3 Red Blood Count 3.57 MIL/MM3 2.73 MIL/MM3 Hemoglobin 8.8 GM/DL 7.3 GM/DL Hematocrit 27.4 % 21.1 % Mean Corpuscular Volume 76.6 FL 77.3 FL Mean Corpuscular Hemoglobin 24.6 PG 26.8 PG Mean Corpuscular Hemoglobin Concent 32.1 % 34.7 % Red Cell Distribution Width 16.2 % 15.9 % Platelet Count 88 TH/MM3 105 TH/MM3 Mean Platelet Volume 8.1 FL 8.7 FL Neutrophils (%) (Auto) 96.0 % 90.5 % Lymphocytes (%) (Auto) 2.0 % 6.5 % Monocytes (%) (Auto) 1.7 % 2.4 % Eosinophils (%) (Auto) 0.1 % 0.5 % Basophils (%) (Auto) 0.2 % 0.1 % Neutrophils # (Auto) 11.2 TH/MM3 7.9 TH/MM3 Lymphocytes # (Auto) 0.2 TH/MM3 0.6 TH/MM3 Monocytes # (Auto) 0.2 TH/MM3 0.2 TH/MM3 Eosinophils # (Auto) 0.0 TH/MM3 0.0 TH/MM3 Basophils # (Auto) 0.0 TH/MM3 0.0 TH/MM3 CBC Comment AUTO DIFF DIFF FINAL Differential Comment AUTO DIFF CONFIRMED Platelet Estimate LOW Platelet Morphology Comment NORMAL Laboratory Tests Test 11/21/16 04:00 11/22/16 04:10 Blood Urea Nitrogen 80 MG/DL 70 MG/DL Creatinine 3.21 MG/DL 2.59 MG/DL Random Glucose 147 MG/DL 135 MG/DL Total Protein 6.7 GM/DL 6.9 GM/DL Albumin 1.4 GM/DL 1.3 GM/DL Calcium Level 7.1 MG/DL 7.6 MG/DL Alkaline Phosphatase 132 U/L 308 U/L Aspartate Amino Transf (AST/SGOT) 64 U/L 60 U/L Alanine Aminotransferase (ALT/SGPT) 38 U/L 34 U/L Total Bilirubin 2.9 MG/DL 2.0 MG/DL Sodium Level 145 MEQ/L 155 MEQ/L Potassium Level 3.4 MEQ/L 2.7 MEQ/L Chloride Level 108 MEQ/L 114 MEQ/L Carbon Dioxide Level 26.5 MEQ/L 31.8 MEQ/L Anion Gap 11 MEQ/L 9 MEQ/L Estimat Glomerular Filtration Rate 21 ML/MIN 27 ML/MIN Protein Corrected Calcium 7.3 MG/DL Direct Bilirubin 1.7 MG/DL Indirect Bilirubin 0.3 MG/DL Total Creatine Kinase 523 U/L Creatine Kinase MB 1.1 NG/ML Creatine Kinase MB % 0.2 % Microbiology Date/Time Source Procedure Growth Status 11/22/16 03:58 Blood Peripheral Aerobic Blood Culture Pending Received 11/22/16 03:58 Blood Peripheral Anaerobic Blood Culture Pending Received 11/21/16 14:00 Blood Peripheral Aerobic Blood Culture Pending Received 11/21/16 14:00 Blood Peripheral Anaerobic Blood Culture Pending Received 11/20/16 13:42 Blood Peripheral Aerobic Blood Culture - Preliminary NO GROWTH IN 1 DAY Resulted 11/20/16 13:42 Blood Peripheral Anaerobic Blood Culture - Preliminary NO GROWTH IN 1 DAY Resulted 11/20/16 13:35 Blood Peripheral Aerobic Blood Culture - Preliminary NO GROWTH IN 1 DAY Resulted 11/20/16 13:35 Blood Peripheral Anaerobic Blood Culture - Preliminary NO GROWTH IN 1 DAY Resulted Imaging Last Impressions Chest X-Ray 11/17/16 0000 Signed Impressions: Service Date/Time: Thursday, November 17, 2016 11:07 - CONCLUSION: Development of diffuse pulmonary infiltrates with consolidation additionally in the left lower lobe. Chencho Chaparro MD Renal Ultrasound 11/15/16 0000 Signed Impressions: Service Date/Time: Tuesday, November 15, 2016 10:26 - CONCLUSION: Normal examination. Katie Nevarez MD Chest CT 11/15/16 0000 Signed Impressions: Service Date/Time: Tuesday, November 15, 2016 09:10 - CONCLUSION: Multiple new solid and cavitary irregular nodules seen throughout the lungs bilaterally. These may represent foci of metastatic disease, however, given that these are new as compared to the prior exam of July 2016 concern is for possible septic emboli given the cavitary lesions. Small right-sided pleural effusion also favors possible infectious source. Katie Nevarez MD Physical Exam GENERAL: Opens eyes when stimulated, on the vent, looks comfortable SKIN: No rashes, ecchymoses or lesions. Cool and dry. HEAD: Atraumatic. Normocephalic. No temporal or scalp tenderness. EYES: Pupils equal round and reactive. Extraocular motions intact. No scleral icterus. No injection or drainage. ENT: Intubated. Nose without bleeding, purulent drainage or septal hematoma. NECK: Trachea midline. Supple, nontender, no meningeal signs. CARDIOVASCULAR: Tachycardic, no rub RESPIRATORY: Decreased AE in bases. GASTROINTESTINAL: Abdomen soft, non-tender, nondistended. MUSCULOSKELETAL: Extremities without clubbing, cyanosis, or edema. NEUROLOGICAL: Opens eyes, did not focus, not following Psych could not be assessed. IV line sites with no evidence of infection. Assessment & Plan Remarks Septic Shock with MODS (fever, tachy, low BP, bandemia, source: lung, endocarditis) MRSA bacteremia, TV endocarditis with severe TR. Abnormal MRI brain, ?septic emboli Lung lesions: septic emboli most likely. Other differentials include cancer related mets. Very less likely to be fungal or TB. Acute renal failure: prerenal, sepsis. Acute metabolic encephalopathy: sepsis, less likely to be meningitis. Hyponatremia: Infection, metabolic, meningitis Hepatitis C positive. Recommendations: Continue Daptomycin IV (Re: Worsening clinically, resp distress, back pain, neck pain ? further dissemination). Does not cover Pneumonia. Continue Rifampin oral (cannot use Genta due to ARF). Follow LFTs if increases further consider stopping. If BCX remain negative at 48 hrs ok to stop Rifampin. Continue Teflaro IV (MRSA bacteremia, Cannot use Nephrotoxins plus Vanco MAHOGANY 2 and clinically failing) Follow cultures Follow clinically. Repeat BC to document clearing Dimayuga,Nana G MD Nov 22, 2016 10:01
[2016-11-22] MEDS: DAPTOMYCIN IV SCH (11:07)
--- NOTE | 2016-11-22 11:36 | RADRPT ---
EXAM DATE/TIME: 11/22/2016 11:08 [facility] COMPARISON: CHEST SINGLE AP, November 20, 2016, 8:15. INDICATIONS : Shortness of breath. MEDICAL HISTORY : Carcinoma, colon. SURGICAL HISTORY : None. ENCOUNTER: Initial ACUITY: 1 day PAIN SCORE: Non-responsive. LOCATION: Bilateral chest FINDINGS: Patchy bilateral air space disease. Endotracheal tube tip at the superior margin of the clavicles. NG tube courses beneath the diaphragm. Cardiomegaly. CONCLUSION: No significant change has occurred. Yung Browning MD on November 22, 2016 at 11:34 Board Certified Radiologist. This report was verified electronically.
[2016-11-22] MEDS: ACETAMINOPHEN 325 MG TAB PO PRN (12:41)
[2016-11-22 14:08] LABS: REVIEW FLAG FINAL
[2016-11-22 14:09] LABS: HEMATOCRIT 19.7 % (39.0-51.0)
[2016-11-22] MEDS ORDERED: POTASSIUM CHLOR 20 MEQ PREMIX 100 ML IV ONE (15:00)
--- NOTE | 2016-11-22 15:23 | HHI.NPPN ---
Subjective History of Present Illness 45 y/o male admitted on 11/15 for fever and Shortness of breath, Brought in by his mother. His only hx of Hep C, IVDA, and colorectal cancer for which he had radiation therapy last week. He was septic on arrival, hypotensive and febrile. He did require intubation for respiratory failure, continues on ventilator. 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 Additional Remarks Patient remain intubated and sedated, clinically same, open eyes. Objective Data Data 11/22/16 11/23/16 19:00 07:00 Intake Total 455 ml Balance 455 ml IV Total 455 ml Vital Signs Date Time Temp Pulse Resp B/P (MAP) Pulse Ox O2 Delivery O2 Flow Rate FiO2 11/22/16 14:00 108 11/22/16 13:41 20 11/22/16 12:34 95 50 11/22/16 12:00 123 11/22/16 12:00 55 11/22/16 12:00 101.5 123 20 95/55 (68) 90 11/22/16 10:00 122 11/22/16 08:06 95 50 11/22/16 08:00 116 11/22/16 08:00 50 11/22/16 08:00 100.5 116 20 89/50 (63) 95 11/22/16 06:00 117 11/22/16 04:40 95 50 11/22/16 04:00 50 11/22/16 04:00 100.4 121 20 100/57 (71) 94 11/22/16 04:00 121 11/22/16 02:00 116 11/22/16 01:03 94 50 11/22/16 00:00 99.0 116 20 84/48 (60) 94 11/22/16 00:00 116 11/22/16 00:00 50 11/21/16 22:30 94 50 11/21/16 22:00 119 11/21/16 21:00 94 50 11/21/16 20:00 119 11/21/16 20:00 99.4 119 20 102/58 (73) 93 11/21/16 20:00 50 11/21/16 18:00 126 11/21/16 16:00 99.4 122 24 109/56 (73) 94 11/21/16 16:00 126 11/21/16 16:00 99.1 126 21 100/59 (73) 93 11/21/16 16:00 50 11/21/16 15:57 93 50 -: 11/22/16 1245 11/22/16 1245 Microbiology 11/22/16 Aerobic Blood Culture, Received Pending 11/22/16 Anaerobic Blood Culture, Received Pending Physical Exam General Appearance Remarks Intubated and sedated. Eyes Eye Exam: Pupils Equal Throat Throat Exam: Oral Mucosa [employer] & Moist Neck Neck Exam: Neck Supple Pulmonary Resp Exam: Breath Sounds Equal, Rhonchi, Decreased Bases, Diminished Breath Sounds, Poor Inspiratory Effort Cardiology CV Exam: Regular, Normal Sinus Rhythm Gastrointestinal/Abdomen GI Exam: Soft, Non-Tender, Bowel Sounds Present, Non-Distended Extremeties Extremities Exam: Trace Edema Neurologic Neuro Exam: Sedated Assessment/Plan Problem List: (1) Acute renal failure ICD Codes: N17.9 - Acute kidney failure, unspecified Plan: He has normal renal function at baseline, in August his creatinine was 1 RACHEL likely from sepsis syndrome, hypotension, decreased renal perfusion; possible progression to ATN he has been hypotensive overnight but as of now he is off pressor support ; resume if needed to maintain MAP > 65mmHg also has septic embolic, check complement levels renal US negative for obstruction UA with infection, culture in process he is non oliguric follow renal function avoid IVF, nephrotoxins, renally dose medications when appropriate Bumex was stopped, urine out put is good. Creatinine decreased to 2.5, K was low and replaced. (2) Severe sepsis ICD Codes: A41.9 - Sepsis, unspecified organism; R65.20 - Severe sepsis without septic shock Status: Acute Plan: with MRSA bacteremia ID following + TV endocarditis, septic emboli continue antibiotic therapy, he is on Teflaro, Zosyn and daptomycin (3) Rectal cancer ICD Codes: C20 - Malignant neoplasm of rectum Status: Acute Plan: has had radiation as recent as last week Laura Hutton MD Nov 22, 2016 15:23
[2016-11-22 19:41] LABS: C. DIFF EPI 027 PRESUMPTIVE NEGATIVE (NEGATIVE)
[2016-11-22 22:42] LABS: REVIEW FLAG FINAL
[2016-11-22 22:44] LABS: HEMATOCRIT 20.8 % (39.0-51.0)
[2016-11-22] MEDS ORDERED: SODIUM CHLOR 0.9% 250 ML INJ 250 ML IV ONE (23:15)
[2016-11-22] MEDS: POTASSIUM CHLOR 40 MEQ PREMIX 100 ML IV SCH (23:25)
[2016-11-22 23:37] LABS: RETIC % 1.5 % (0.4-3.0)
[2016-11-22 23:40] LABS: REVIEW FLAG FINAL
[2016-11-22 23:44] LABS: TRANSFERRIN IRON PROFILE 109 MG/DL (200-360)
[2016-11-23] VITALS (28 sets, daily range): BP systolic 101–130; BP diastolic 50–83; PULSE 83–125; RESP 16–29; TEMP 98.7–101.3; O2SAT 92–96
[2016-11-23] MEDS: POTASSIUM CHLOR 40 MEQ PREMIX 100 ML IV SCH (01:36)
[2016-11-23] MEDS: RESP: ALBUTEROL 2.5 MG/IPRATROPIUM 0.5 MG NEB (SCH) INH ×2 (03:12→08:16)
[2016-11-23] MEDS: CEFTAROLINE INJ 400 MG in SODIUM CHLORIDE 0.9% INJ 100 ML IV SCH ×3 (05:13→18:03)
[2016-11-23] MEDS: PROPOFOL 1000 MG/100 ML IV PRN (05:14)
[2016-11-23 06:21] LABS: HEMATOCRIT 28.1 % (39.0-51.0); MEAN CELL VOLUME 79.1 FL (80.0-100.0); MEAN CORPUSCULAR HEMOGLOBIN 26.3 PG (27.0-34.0); MEAN CORPUSCULAR HGB CONC 33.3 % (32.0-36.0); PLATELET COUNT 107 TH/MM3 (150-450); RED BLOOD COUNT 3.55 MIL/MM3 (4.50-5.90); RED CELL DISTRIBUTION WIDTH 15.8 % (11.6-17.2); REVIEW FLAG FINAL; WHITE BLOOD COUNT 7.8 TH/MM3 (4.0-11.0)
[2016-11-23 06:29] LABS: APTT (PATIENT) 27.8 SEC (24.3-30.1); INTERNATIONAL NORMALIZED RATIO 1.1 RATIO
[2016-11-23 06:50] LABS: BICARBONATE 30.4 MEQ/L (21.0-32.0); INDIRECT BILIRUBIN 0.4 MG/DL (0.0-0.8); POTASSIUM 3.8 MEQ/L (3.5-5.1); TOTAL BILIRUBIN ADULT 1.9 MG/DL (0.2-1.0)
--- NOTE | 2016-11-23 07:22 | HHI.CCPN ---
Subjective Remarks/Hospital Course The patient is a 45-year-old male with past medical history of colon cancer on radiation treatment last session on Wednesday and has been on radiation for the past 2-3 months being followed by Dr. Harrell, his oncologist, and Dr. Galvan. He presented to [facility] emergency department with a couple of days history of shortness of breath, pleuritic chest pain with deep inspiration , dry cough and feeling nauseous. The patient denies any exposure to sick contacts. In addition, he denies any prior history of pneumonia or flu. He was found to have a temperature of 101.4 orally in the ER. In addition hewas tachycardiac with heart rate of 120s to 130s. Chest x-ray in the ER showed new bilateral mild air space opacities. The patient subsequently had CT scan of the chest which showed multiple new solid and cavitary irregular nodules seen throughout the lungs bilaterally, and small right-sided pleural effusion. His laboratory data is significant for renal failure with a creatinine level of 2.29 and hypokalemia with a potassium level of 2.8. His lactic acid level measured at 1.2. The patient also is thrombocytopenic with a platelet count of 55, however, his INR is 1.2. In the ED he was given three liters of Crystalloid in addition to cefepime, azithromycin, Tylenol and DuoNeb. When seen in the ER he was on room air oxygen with saturation 96%. However, tachycardiac with heart rate of 123 and blood pressure 154/75. He denies any vomiting, abdominal pain. 11/16 No events overnight. Patient is lying in bed in NAD. Afebrile. renal function is improving with Cr: 1.54 from 2.0. Echo from yesterday showed vegetation on TV, EF 50-55%. 11/17 Patient is lying in bed in NAD. Afebrile. 11/18: decompensated overnight. now intubated, on vasopressors, on 100% fio2 APRV with paO2 72. severe ARDS likely combination of pulmonary septic emboli combined with CHF from severe TR, however also now in septic shock. 11/19: persistently hypoxic on APRV. fio2 weaned but still requiring high Phigh in order to remain oxygenated. Cr continues to rise with minimal uop (~300cc/24h ) despite bumex drip. vasopressors continue and remains in shock. 11/20 Patient is sedated with Diprivan, Fentanyl and intubated. On Levophed 8 mics and Vasopressin 0.04 mics. Afebrile. On Bumex drip. 11/21 Patient remains intubated and sedated with Diprivan and Fentanyl. Afebrile. On Bumex drip 0.5mg/hr. Renal function is improving with Cr: 3.21 from 3.81 with UOP: 9424ml in 24 hrs Off all pressors. 11/22 Patient remains sedated with Diprivan, Fentanyl and intubated. T:100.4 at 4 am. WBC is trending down. Renal function is improving with Cr: 2.59 today from 3.21 on Bumex drip 0.5mg/hr. 11/23 Patient is off Diprivan was on Feminal drip overnight however he is awake and follows simple commands. T:100.7. Off Bumex drip. Patient was given additional 2units PRBC ( 3 total) overnight Hgb 9.3 from 6.9. Objective Vital Signs Date Time Temp Pulse Resp B/P (MAP) Pulse Ox O2 Delivery O2 Flow Rate FiO2 11/23/16 04:10 92 45 11/23/16 02:43 100.6 109 17 110/67 Intake and Output 11/23/16 11/23/16 11/24/16 08:00 16:00 00:00 Intake Total 850 ml Balance 850 ml Result Diagram: 11/23/16 0550 11/22/16 7215 Other Results Laboratory Tests Test 11/22/16 12:45 11/22/16 18:00 11/22/16 19:15 11/22/16 21:30 Hemoglobin 6.6 GM/DL 6.9 GM/DL Hematocrit 19.7 % 20.8 % Potassium Level 3.0 MEQ/L 3.0 MEQ/L Stool C. difficile Toxin (PCR) NEGATIVE Stl C. difficile Toxin Epiderm 027 PRESUMPTIVE NEGATIVE Haptoglobin 300 MG/DL Iron Level 16 MCG/DL Total Iron Binding Capacity 153 MCG/DL Percent Iron Saturation 10.5 % Reticulocyte Count 1.5 % Absolute Reticulocyte Count 39.3 MIL/L Test 11/23/16 05:50 White Blood Count 7.8 TH/MM3 Red Blood Count 3.55 MIL/MM3 Hemoglobin 9.3 GM/DL Hematocrit 28.1 % Mean Corpuscular Volume 79.1 FL Mean Corpuscular Hemoglobin 26.3 PG Mean Corpuscular Hemoglobin Concent 33.3 % Red Cell Distribution Width 15.8 % Platelet Count 107 TH/MM3 Mean Platelet Volume 8.1 FL Prothrombin Time 12.0 SEC Prothromb Time International Ratio 1.1 RATIO Activated Partial Thromboplast Time 27.8 SEC Imaging Last Impressions Chest X-Ray 11/22/16 Signed Impressions: Service Date/Time: Tuesday, November 22, 2016 11:08 - CONCLUSION: No significant change has occurred. Yung Browning MD Thoracic Spine MRI 11/20/16 Signed Impressions: Service Date/Time: Sunday, November 20, 2016 21:36 - CONCLUSION: 1. No focal abnormality within the thoracic spine. 2. There is edema/inflammatory change seen in the soft tissues to the left of the C7 and T1 spinous processes better seen on the cervical spine MRI examination. 3. Cavitary lesions in the lungs. Manolo Anne MD Lumbar Spine MRI 11/20/16 Signed Impressions: Service Date/Time: Sunday, November 20, 2016 21:36 - CONCLUSION: 1. No areas of significant stenosis. The disc spaces are preserved. 2. Mild facet hypertrophy at the L3-L4 and L4-L5 old. 3. Nonspecific areas of edema within the soft tissues adjacent to the spinous processes throughout the lumbar spine. This can be seen secondary to some dependent edema. Inflammatory change cannot be excluded. It does appear fairly symmetric when comparing right to left. 4. Ascites. Manolo Anne MD Chest CT 11/20/16 Signed Impressions: Service Date/Time: Sunday, November 20, 2016 11:30 - CONCLUSION: Deterioration in the appearance of the chest with increasing size of nodules and consolidation. Worsening of an inflammatory process is suspected. Michael Youssef MD FACR Cervical Spine MRI 11/20/16 Signed Impressions: Service Date/Time: Sunday, November 20, 2016 21:36 - CONCLUSION: 1. 2.4 cm vague area of edema seen to the left of the spinous processes of C7 and T1 concerning for focal inflammatory/infectious change. The spinous processes themselves demonstrate normal signal. 2. Suspected hemangioma at the C7 vertebral body. 3. Fluid in the nasopharynx, oropharynx and hypopharynx. There is an NG tube and ET tube in place. Manolo Anne MD Brain MRI 11/20/16 0000 Signed Impressions: Service Date/Time: Sunday, November 20, 2016 21:36 - CONCLUSION: 1. Abnormal gyriform signal abnormality in the left frontal and parietal regions associated with some minimally increased signal on the diffusion weighted images. Findings are nonspecific. Differential diagnosis includes an area of meningitis or leptomeningeal spread of tumor given history of malignancy. Infarction less likely. No associated mass effect. Recommend further evaluation with MRI brain with contrast to assess for abnormal meningeal enhancement. Bruno Cleaning MD Abdomen/Pelvis CT 11/20/16 0000 Signed Impressions: Service Date/Time: Sunday, November 20, 2016 11:30 - CONCLUSION: Significant aeration appearance of the lungs. Generalized anasarca, negative for abscess. Adults abdominal abscess. Michael Youssef MD FACR Renal Ultrasound 11/15/16 0000 Signed Impressions: Service Date/Time: Tuesday, November 15, 2016 10:26 - CONCLUSION: Normal examination. Katie Nevarez MD Objective Remarks GENERAL: middle-aged male, lying in bed, intubated, sedated, critically ill. SKIN: cool, poorly perfused HEAD: Normocephalic. EYES: No scleral icterus. No injection or drainage. NECK: trachea midline. +JVD CARDIOVASCULAR: Tachycardic, regular rhythm. sinus by tele. Bedside critical care ultrasound: hyperdynamic LV function, RV dilated, preserved function, flattening of the intraventricular septum throughout the cardiac cycle suggestive of RV volume overload. dilated IVC without respiratory variation. RESPIRATORY: bilateral coarse breath sounds in all lung thomas. intubated. APRV 40% fio2, 28/0 I:E 8:1 GASTROINTESTINAL: Abdomen soft, non-tender, nondistended. MUSCULOSKELETAL: No cyanosis, or edema. Neuro: RASS -2, sedated. follows commands. 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 continues to be critically ill, ongoing shock and renal failure. poor prognosis. Plan Neuro: Metabolic encephalopathy - On Fentanyl infusion for sedation. Daily sedation vacation. -UDS: Opiates, Cocaine 11/20: MRI brain: Abnormal gyriform signal abnormality in the left frontal and parietal regions associated with some minimally increased signal on the diffusion weighted images.ddx meningitis or leptomeningeal spread of tumor given history of malignancy. Neuro is following 11/20: Cervical CT: 2.4 cm vague area of edema seen to the left of the spinous processes of C7 and T1 concerning for focal inflammatory/infectious change. The spinous processes themselves demonstrate normal signal.. Suspected hemangioma at the C7 vertebral body 11/21 EEG: Encephalopathy, no epileptiform features. Pulm: Acute hypoxic and hypercarbic respiratory failure Septic pulmonary emboli Pulmonary Edema Severe ARDS - intubated 11/18 for worsening hypoxemia - Continue with vent support keep sat >92%. OnPRVC RR 16, TV 550, IT;1.0, PEEP:5, FIO2 45% -Bronchodilators, ICU vent bundle. -CXR yesterday patchy b/l airspace disease ( unchanged) -repeat CT chest 11/20: increasing size of nodules and consolidation. - 11/15 CT chest showed cavitary and irregular nodules throughout the lungs bilaterally. CV: Septic Shock Congestive Heart Failure Exacerbation secondary to valvulopathy Severe tricuspid regurgitation Pulmonary Edema -Monitor HR and BP keep MAP>65mmHg - Echo showed EF 50-55%, +Vegetations on TV, severe TR : RACHEL Intravascular volume overload Hypernatremia - Monitor renal function, I/O's, avoid nephrotoxins -Change Free water 300ml Q4, add D5W@84ml/hr, monitor sodium level, UOP: 1650ml in 24 hrs, Cr: 1.69 today from 2.59 - Renal US 11/15: Unremarkable. Renal is following- Dr. young FEN/GI: Acute protein calorie malnutrition- moderate Anion-gap metabolic acidosis Intravascular volume overload Colon cancer on radiation treatment Hepatitis C On tube feeds- Nepro with goal rate 40ml/hr Protonix 40mg IV daily for GI prophylaxis ID: MRSA Tricuspid Valve infective endocarditis s/p Septic Shock - ID on board - Continue abx per ID ( On daptomycin, Rifampin, Teflaro, Acyclovir) monitor CK' s. -LP ordered by neuro discussed with ID. - Echo showed vegetations on TV. - 11/15, 11/16, 09/17 BC: MRSA, 11/18 BC: MRSA - 11/15 Urine cx: MRSA, 11/18 sputum: MRSA -BC 11/20,11/21,11/22: NGTD Heme: Anemia secondary to chronic illness Thrombocytopenia secondary to hepatic dysfunction - Monitor CBC - no indication for transfusion at this time. Endo: Hyperglycemia of critical illness - SSI with Accu-Cheks for glycemic control. GI prophylaxis with Protonix 40 milligrams daily and DVT prophylaxis with SCDs. Not on chemical anticoagulation prophylaxis due to thrombocytopenia. Dispo: remain in ICU. very critically ill. Lines: Right subclavian CVP placed 11/18 CCT 30 mins Efrain Ortiz MD Nov 23, 2016 07:22
[2016-11-23] MEDS: FREE WATER G-TUBE SCH ×6 (08:00→22:51)
[2016-11-23] MEDS: PANTOPRAZOLE SODIUM 40 MG VIAL IV SCH (08:26)
[2016-11-23] MEDS: RIFAMPIN 150 MG CAP PO SCH ×2 (08:26→20:17)
[2016-11-23] MEDS: DOCUSATE SODIUM 50 MG/SENNA 8.6 MG TAB PO SCH (08:28)
[2016-11-23] MEDS: DEXTROSE 5% IN WATE 1000ML INJ 1,000 ML IV SCH ×2 (08:28→19:55)
[2016-11-23] MEDS: INSULIN NovoLIN REGULAR SUPPLEMENTAL SCALE SQ SCH ×3 (11:00→22:51)
--- NOTE | 2016-11-23 11:07 | HHI.NPPN ---
Subjective Interval History patient is sedated on the ventilator. He has excellent urine output. Bumex drip stopped yesterday. Frequent bowel movements. Renal function is better. Objective Data Data Vital Signs Date Time Temp Pulse Resp B/P (MAP) Pulse Ox O2 Delivery O2 Flow Rate FiO2 11/23/16 10:34 95 45 11/23/16 08:09 94 Ventilator 45 11/23/16 08:09 94 45 11/23/16 08:00 99.8 111 27 130/83 (99) 94 11/23/16 07:00 45 11/23/16 06:00 107 11/23/16 04:10 92 45 11/23/16 04:00 109 11/23/16 04:00 45 11/23/16 04:00 110 11/23/16 04:00 100.7 109 19 119/75 (90) 96 11/23/16 02:43 100.6 109 17 110/67 94 11/23/16 02:21 100.7 106 16 105/50 96 11/23/16 02:00 125 11/23/16 01:50 98.8 105 17 106/61 94 11/23/16 01:00 99.1 107 17 106/65 94 11/23/16 00:26 98.8 110 18 101/61 94 11/23/16 00:05 98.8 110 20 106/62 94 11/23/16 00:02 92 45 11/23/16 00:00 98.8 110 18 108/62 (77) 96 11/23/16 00:00 45 11/23/16 00:00 125 11/22/16 22:00 125 11/22/16 20:27 94 45 11/22/16 20:00 45 11/22/16 20:00 100.8 109 19 101/56 (71) 95 11/22/16 20:00 125 11/22/16 20:00 100.8 125 26 149/70 (96) 98 11/22/16 19:30 100.8 125 26 149/81 (103) 98 11/22/16 18:02 101.2 124 25 136/78 99 11/22/16 18:00 125 11/22/16 17:48 102.1 122 23 136/76 99 11/22/16 17:28 101.7 124 21 126/74 100 11/22/16 17:12 101.7 120 22 126/74 100 11/22/16 17:00 98 45 11/22/16 16:00 101.7 121 22 126/74 (91) 99 11/22/16 16:00 45 11/22/16 16:00 117 11/22/16 15:40 98 55 11/22/16 14:00 108 11/22/16 13:41 20 11/22/16 12:34 95 50 11/22/16 12:00 123 11/22/16 12:00 55 11/22/16 12:00 101.5 123 20 95/55 (68) 90 -: 11/23/16 0550 11/23/16 0550 Microbiology 11/22/16 Stool Occult Blood (MAHOGANY) - Final, Complete HEMOCCULT NEGATIVE Physical Exam General Appearance: Malnourished Eyes Eye Exam: Pupils Equal Throat Throat Exam: Oral Mucosa [employer] & Moist Neck Neck Exam: Neck Supple Pulmonary Resp Exam: Clear Bilaterally, Breath Sounds Equal, Decreased Bases Cardiology CV Exam: Regular, Normal Sinus Rhythm Gastrointestinal/Abdomen GI Exam: Soft, Non-Tender, Bowel Sounds Present, Non-Distended Extremeties Extremities Exam: No Edema Neurologic Neuro Exam: Sedated Assessment/Plan Problem List: (1) Acute renal failure ICD Codes: N17.9 - Acute kidney failure, unspecified Plan: Renal function has improved. Continue supportive care. Avoid nephrotoxins. He is on Acyclovir IV: consider stopping it if not necessary. (2) Hyperosmolality and hypernatremia ICD Codes: E87.0 - Hyperosmolality and hypernatremia Plan: Bumex drip stopped. On D5W and free water with TF (300 ml Q4 hours.) (3) Severe sepsis ICD Codes: A41.9 - Sepsis, unspecified organism; R65.20 - Severe sepsis without septic shock Status: Acute Plan: with MRSA bacteremia ID following + TV endocarditis, septic emboli He is currently on Rifampin, Ceftaroline, and Daptomycin. (4) Rectal cancer ICD Codes: C20 - Malignant neoplasm of rectum Status: Acute Plan: has had radiation as recent as last week patient was seen by his oncologist. Leonidas Gillis MD Nov 23, 2016 11:07
--- NOTE | 2016-11-23 11:48 | HHI.PR ---
Subjective Remarks LP today follows per staff had lge BM nursing with pt Objective Vital Signs Date Time Temp Pulse Resp B/P (MAP) Pulse Ox O2 Delivery O2 Flow Rate FiO2 11/23/16 10:34 95 45 11/23/16 08:09 94 Ventilator 45 11/23/16 08:09 94 45 11/23/16 08:00 99.8 111 27 130/83 (99) 94 11/23/16 07:00 45 11/23/16 06:00 107 11/23/16 04:10 92 45 11/23/16 04:00 109 11/23/16 04:00 45 11/23/16 04:00 110 11/23/16 04:00 100.7 109 19 119/75 (90) 96 11/23/16 02:43 100.6 109 17 110/67 94 11/23/16 02:21 100.7 106 16 105/50 96 11/23/16 02:00 125 11/23/16 01:50 98.8 105 17 106/61 94 11/23/16 01:00 99.1 107 17 106/65 94 11/23/16 00:26 98.8 110 18 101/61 94 11/23/16 00:05 98.8 110 20 106/62 94 11/23/16 00:02 92 45 11/23/16 00:00 98.8 110 18 108/62 (77) 96 11/23/16 00:00 45 11/23/16 00:00 125 11/22/16 22:00 125 11/22/16 20:27 94 45 11/22/16 20:00 45 11/22/16 20:00 100.8 109 19 101/56 (71) 95 11/22/16 20:00 125 11/22/16 20:00 100.8 125 26 149/70 (96) 98 11/22/16 19:30 100.8 125 26 149/81 (103) 98 11/22/16 18:02 101.2 124 25 136/78 99 11/22/16 18:00 125 11/22/16 17:48 102.1 122 23 136/76 99 11/22/16 17:28 101.7 124 21 126/74 100 11/22/16 17:12 101.7 120 22 126/74 100 11/22/16 17:00 98 45 11/22/16 16:00 101.7 121 22 126/74 (91) 99 11/22/16 16:00 45 11/22/16 16:00 117 11/22/16 15:40 98 55 11/22/16 14:00 108 11/22/16 13:41 20 11/22/16 12:34 95 50 11/22/16 12:00 123 11/22/16 12:00 55 11/22/16 12:00 101.5 123 20 95/55 (68) 90 I/O 11/22/16 11/22/16 11/22/16 11/23/16 11/23/16 11/23/16 07:00 15:00 23:00 07:00 15:00 23:00 Intake Total 1973 ml 455 ml 2327 ml 2958 ml Output Total 2700 ml 1650 ml 1650 ml Balance -727 ml 455 ml 677 ml 1308 ml IV Total 1540 ml 455 ml 758 ml 1089 ml Tube Feeding 433 ml 409 ml 400 ml Packed Cells 315 ml 1219 ml Blood Product IV Normal Saline Flush 125 ml 250 ml Other 720 ml Output Urine Total 2700 ml 1650 ml 1650 ml # Bowel Movements 1 3 3 Result Diagram: 11/23/16 0550 11/23/16 0550 Objective Remarks awake eyes open extubated moves all 4 extremities. Assessment and Plan Assessment and Plan encephalopathy abnl mri r/o infection vs tumor -lp today w/cytology -abx per ID.eeg neg for sz's. Iadlia Lama MD Nov 23, 2016 11:48
[2016-11-23] MEDS: RESP: ALBUTEROL 2.5 MG/IPRATROPIUM 0.5 MG NEB (SCH) NEB ×3 (12:00→21:58)
[2016-11-23] MEDS: DAPTOMYCIN IV SCH (12:02)
[2016-11-23] MEDS: SODIUM CHLORIDE 0.9% IV SCH ×3 (12:02→22:50)
[2016-11-23] MEDS: ONDANSETRON HCL 4 MG/2 ML VIAL IV PUSH PRN (12:09)
[2016-11-23] MEDS: ACETAMINOPHEN 325 MG TAB PO PRN (12:09)
--- NOTE | 2016-11-23 15:32 | PD.RAD ---
Post Procedure Progress Note Pre Procedure Diagnosis: (1) Severe sepsis Post Procedure Diagnosis: (1) Severe sepsis Procedure Date: Nov 23, 2016 Supervising Radiologist: Horace Kirkland Proceduralist/Assist: Ozzie Zamarripa, RT(R), Angela Gates RT(R)() Anesthesia: Local Plan of Activity Patient to Unit: Critical Care Patient Condition: Critical See PACS Report for procedural detail/treatment Spinal Procedure Lumbar Puncture L3-L4 Fluid Removal (CCs): 10 (opening pressure 22) Fluid Description: Horace Duggan MD Nov 23, 2016 15:31
[2016-11-23] MEDS: ACYCLOVIR IV SCH ×2 (17:14→22:50)
--- NOTE | 2016-11-23 17:18 | HHI.IDPN ---
Subjective Subjective Remarks ID COVERAGE is a 45 y/o CM with history of Rectal Cancer (Invasive moderately differentiated Adenocarcinoma with no prior lung or distant mets), and has no port or PICC line and has been receiving oral chemotherapy. Patient is followed by Dr. Vielka Harrell. Patient also sees colorectal surgeon and has undergone colonoscopy but no definite surgery. Patient also has been seeing Dr. Santana radiation oncologist and has been undergoing radiation therapy. Reportedly, the patient's last radiation therapy was on Wednesday before admission. Admitted with sepsis. Intubated. BC with MRSA. Sputum with MRSA, TTE with TV vegetatuin and severe TR. CTA with findings of pulmonary septic emboli. MRI cervical abnormal finidngs of inflammatory changes to the left of C7-T1 Infectious disease was consulted for the management of sepsis, pneumonia in an immune compromised patient. Notes reviewed Opens eyes when stimulated, did not follow, did not track Tmax 101.2 F Not on pressors All BC with MRSA, up to 11/18 Creatinine elevated but decreasing, has good UO No rash No diarrhea Antibiotics Dapto IV Teflaro IV Rifampin Lines Line sites with no e.o infection. Past Medical History reviewed. Allergies: Coded Allergies: No Known Allergies (Unverified , 11/15/16) Objective . Vital Signs Date Time Temp Pulse Resp B/P (MAP) Pulse Ox O2 Delivery O2 Flow Rate FiO2 11/23/16 16:05 92 45 11/23/16 16:00 101.2 89 23 114/73 (87) 92 11/23/16 16:00 45 11/23/16 13:40 95 45 11/23/16 12:00 45 11/23/16 12:00 101.3 97 29 125/73 (90) 94 11/23/16 10:34 95 45 11/23/16 08:09 94 Ventilator 45 11/23/16 08:09 94 45 11/23/16 08:00 45 11/23/16 08:00 99.8 111 27 130/83 (99) 94 11/23/16 07:00 45 11/23/16 06:00 107 11/23/16 04:10 92 45 11/23/16 04:00 109 11/23/16 04:00 45 11/23/16 04:00 110 11/23/16 04:00 100.7 109 19 119/75 (90) 96 11/23/16 02:43 100.6 109 17 110/67 94 11/23/16 02:21 100.7 106 16 105/50 96 11/23/16 02:00 125 11/23/16 01:50 98.8 105 17 106/61 94 11/23/16 01:00 99.1 107 17 106/65 94 11/23/16 00:26 98.8 110 18 101/61 94 11/23/16 00:05 98.8 110 20 106/62 94 11/23/16 00:02 92 45 11/23/16 00:00 98.8 110 18 108/62 (77) 96 11/23/16 00:00 45 11/23/16 00:00 125 11/22/16 22:00 125 11/22/16 20:27 94 45 11/22/16 20:00 45 11/22/16 20:00 100.8 109 19 101/56 (71) 95 11/22/16 20:00 125 11/22/16 20:00 100.8 125 26 149/70 (96) 98 11/22/16 19:30 100.8 125 26 149/81 (103) 98 11/22/16 18:02 101.2 124 25 136/78 99 11/22/16 18:00 125 11/22/16 17:48 102.1 122 23 136/76 99 11/22/16 17:28 101.7 124 21 126/74 100 11/23/16 11/23/16 11/24/16 15:00 23:00 07:00 Intake Total 200 ml Balance 200 ml IV Total 200 ml . Laboratory Tests Test 11/22/16 04:10 11/22/16 12:45 11/22/16 19:15 11/22/16 21:30 White Blood Count 8.8 TH/MM3 Red Blood Count 2.73 MIL/MM3 Hemoglobin 7.3 GM/DL 6.6 GM/DL 6.9 GM/DL Hematocrit 21.1 % 19.7 % 20.8 % Mean Corpuscular Volume 77.3 FL Mean Corpuscular Hemoglobin 26.8 PG Mean Corpuscular Hemoglobin Concent 34.7 % Red Cell Distribution Width 15.9 % Platelet Count 105 TH/MM3 Mean Platelet Volume 8.7 FL Neutrophils (%) (Auto) 90.5 % Lymphocytes (%) (Auto) 6.5 % Monocytes (%) (Auto) 2.4 % Eosinophils (%) (Auto) 0.5 % Basophils (%) (Auto) 0.1 % Neutrophils # (Auto) 7.9 TH/MM3 Lymphocytes # (Auto) 0.6 TH/MM3 Monocytes # (Auto) 0.2 TH/MM3 Eosinophils # (Auto) 0.0 TH/MM3 Basophils # (Auto) 0.0 TH/MM3 CBC Comment DIFF FINAL Differential Comment Haptoglobin 300 MG/DL Reticulocyte Count 1.5 % Absolute Reticulocyte Count 39.3 MIL/L Test 11/23/16 05:50 White Blood Count 7.8 TH/MM3 Red Blood Count 3.55 MIL/MM3 Hemoglobin 9.3 GM/DL Hematocrit 28.1 % Mean Corpuscular Volume 79.1 FL Mean Corpuscular Hemoglobin 26.3 PG Mean Corpuscular Hemoglobin Concent 33.3 % Red Cell Distribution Width 15.8 % Platelet Count 107 TH/MM3 Mean Platelet Volume 8.1 FL Laboratory Tests Test 11/22/16 04:10 11/22/16 12:45 11/22/16 19:15 11/23/16 05:50 Blood Urea Nitrogen 70 MG/DL 51 MG/DL Creatinine 2.59 MG/DL 1.69 MG/DL Random Glucose 135 MG/DL 119 MG/DL Total Protein 6.9 GM/DL 6.9 GM/DL Albumin 1.3 GM/DL 1.4 GM/DL Calcium Level 7.6 MG/DL 7.7 MG/DL Alkaline Phosphatase 308 U/L 265 U/L Aspartate Amino Transf (AST/SGOT) 60 U/L 65 U/L Alanine Aminotransferase (ALT/SGPT) 34 U/L 34 U/L Total Bilirubin 2.0 MG/DL 1.9 MG/DL Direct Bilirubin 1.7 MG/DL 1.5 MG/DL Sodium Level 155 MEQ/L 158 MEQ/L Potassium Level 2.7 MEQ/L 3.0 MEQ/L 3.0 MEQ/L 3.8 MEQ/L Chloride Level 114 MEQ/L 122 MEQ/L Carbon Dioxide Level 31.8 MEQ/L 30.4 MEQ/L Anion Gap 9 MEQ/L 6 MEQ/L Estimat Glomerular Filtration Rate 27 ML/MIN 45 ML/MIN Indirect Bilirubin 0.3 MG/DL 0.4 MG/DL Total Creatine Kinase 523 U/L Creatine Kinase MB 1.1 NG/ML Creatine Kinase MB % 0.2 % Iron Level 16 MCG/DL Total Iron Binding Capacity 153 MCG/DL Percent Iron Saturation 10.5 % Microbiology Date/Time Source Procedure Growth Status 11/22/16 03:58 Blood Peripheral Aerobic Blood Culture - Preliminary NO GROWTH IN 1 DAY Resulted 11/22/16 03:58 Blood Peripheral Anaerobic Blood Culture - Preliminary NO GROWTH IN 1 DAY Resulted 11/21/16 14:00 Blood Peripheral Aerobic Blood Culture - Preliminary NO GROWTH IN 2 DAYS Resulted 11/21/16 14:00 Blood Peripheral Anaerobic Blood Culture - Preliminary NO GROWTH IN 2 DAYS Resulted 11/23/16 15:18 Cerebral Spinal Fluid Lumbar Puncture Acid Fast Stain Pending Received 11/23/16 15:18 Cerebral Spinal Fluid Lumbar Puncture Mycobacterial Culture Pending Received 11/23/16 15:18 Cerebral Spinal Fluid Lumbar Puncture Gram Stain - Final Resulted 11/23/16 15:18 Cerebral Spinal Fluid Lumbar Puncture CSF Culture Pending Resulted 11/22/16 18:00 Stool Stool Stool Occult Blood (MAHOGANY) - Final HEMOCCULT NEGATIVE Complete Imaging Last Impressions Chest X-Ray 11/17/16 0000 Signed Impressions: Service Date/Time: Thursday, November 17, 2016 11:07 - CONCLUSION: Development of diffuse pulmonary infiltrates with consolidation additionally in the left lower lobe. Chencho Chaparro MD Renal Ultrasound 11/15/16 0000 Signed Impressions: Service Date/Time: Tuesday, November 15, 2016 10:26 - CONCLUSION: Normal examination. Katie Nevarez MD Chest CT 11/15/16 0000 Signed Impressions: Service Date/Time: Tuesday, November 15, 2016 09:10 - CONCLUSION: Multiple new solid and cavitary irregular nodules seen throughout the lungs bilaterally. These may represent foci of metastatic disease, however, given that these are new as compared to the prior exam of July 2016 concern is for possible septic emboli given the cavitary lesions. Small right-sided pleural effusion also favors possible infectious source. Katie Nevarez MD Physical Exam GENERAL: Opens eyes when stimulated, on the vent, looks comfortable SKIN: No rashes, ecchymoses or lesions. Cool and dry. HEAD: Atraumatic. Normocephalic. No temporal or scalp tenderness. EYES: Pupils equal round and reactive. Extraocular motions intact. No scleral icterus. No injection or drainage. ENT: Intubated. Nose without bleeding, purulent drainage or septal hematoma. NECK: Trachea midline. Supple, nontender, no meningeal signs. CARDIOVASCULAR: Tachycardic, no rub RESPIRATORY: Decreased AE in bases. GASTROINTESTINAL: Abdomen soft, non-tender, nondistended. MUSCULOSKELETAL: Extremities without clubbing, cyanosis, or edema. NEUROLOGICAL: Sedated Psych could not be assessed. IV line sites with no evidence of infection. Assessment & Plan Remarks Septic Shock with MODS (fever, tachy, low BP, bandemia, source: lung, endocarditis) MRSA bacteremia, TV endocarditis with severe TR. Possible CL infection new vs ongoing seeding due to line being placed in middle of bacteremia. Abnormal MRI brain, ?septic emboli likely meningitis (partially treated at this point) Lung lesions: septic emboli most likely. Other differentials include cancer related mets. Very less likely to be fungal or TB. Acute renal failure: prerenal, sepsis. Acute metabolic encephalopathy: sepsis, less likely to be meningitis. Hyponatremia: Infection, metabolic, meningitis Hepatitis C positive. Recommendations: Continue Daptomycin IV (Re: Worsening clinically, resp distress, back pain, neck pain ? further dissemination). Does not cover Pneumonia. Continue Rifampin oral (cannot use Genta due to ARF). Follow LFTs if increases further consider stopping. If BCX remain negative at 48 hrs ok to stop Rifampin. Continue Teflaro IV (MRSA bacteremia, Cannot use Nephrotoxins plus Vanco MAHOGANY 2 and clinically failing) If overnight any change in clinical condition start Micafungin IV. At risk for fungemia. CSF studies from LP today negative. Follow cultures Follow clinically. BCX 1 from line and 1 from periphery. Possible CL infection. Lucille Lizama MD Nov 23, 2016 17:18
[2016-11-23 17:22] LABS: GROSS BLOOD TUBE #1 TRACE (0); SUPERNATE COLOR TUBE #1 CLEAR (CLEAR); VOLUME TUBE # 1 2.9 ML
[2016-11-23 17:23] LABS: CSF LYMPHOCYTES 37 %; CSF MONOCYTES 27 %; CSF NEUTROPHILS 36 %; GROSS BLOOD TUBE #2 TRACE (0); GROSS BLOOD TUBE #3 TRACE (0); SUPERNATE COLOR TUBE #2 CLEAR (CLEAR); SUPERNATE COLOR TUBE #3 CLEAR (CLEAR); SUPERNATE COLOR TUBE #4 CLEAR (CLEAR); VOLUME TUBE # 3 2.1 ML; WBC TUBE #4 10 /MM3 (0-10)
[2016-11-23] MEDS: fentaNYL 2,500 MCG/NS 250 ML IV PRN (18:03)
[2016-11-24] VITALS (21 sets, daily range): BP systolic 112–138; BP diastolic 68–87; PULSE 77–101; RESP 14–30; TEMP 98.7–99.8; O2SAT 93–95
[2016-11-24] MEDS: PROPOFOL 1000 MG/100 ML IV PRN ×2 (02:39→04:33)
[2016-11-24] MEDS: CEFTAROLINE INJ 400 MG in SODIUM CHLORIDE 0.9% INJ 100 ML IV SCH ×3 (03:51→21:03)
[2016-11-24] MEDS: FREE WATER G-TUBE SCH ×3 (03:51→21:08)
[2016-11-24] MEDS: CHLORHEXIDINE GLUCONATE 2 % 1 PACK (2 CLOTHS) TOP SCH (03:52)
[2016-11-24] MEDS: RESP: ALBUTEROL 2.5 MG/IPRATROPIUM 0.5 MG NEB (SCH) NEB ×5 (04:10→23:35)
[2016-11-24] MEDS: ACYCLOVIR IV SCH (04:50)
[2016-11-24] MEDS: SODIUM CHLORIDE 0.9% IV SCH ×2 (04:50→14:18)
[2016-11-24] MEDS: INSULIN NovoLIN REGULAR SUPPLEMENTAL SCALE SQ SCH ×2 (05:00→22:22)
[2016-11-24 05:53] LABS: AUTOMATED NEUTROPHIL # 6.7 TH/MM3 (1.8-7.7); BASOPHIL % 0.2 % (0.0-2.0); EOSINOPHIL # 0.1 TH/MM3 (0-0.4); EOSINOPHIL % 1.1 % (0.0-4.0); LYMPH % 6.2 % (9.0-44.0); LYMPHOCYTE # 0.5 TH/MM3 (1.0-4.8); MEAN CELL VOLUME 80.4 FL (80.0-100.0); MEAN CORPUSCULAR HEMOGLOBIN 26.6 PG (27.0-34.0); MEAN CORPUSCULAR HGB CONC 33.1 % (32.0-36.0); MONO % 3.6 % (0.0-8.0); NEUT % 88.9 % (16.0-70.0); PLATELET COUNT 98 TH/MM3 (150-450); RED BLOOD COUNT 3.36 MIL/MM3 (4.50-5.90); RED CELL DISTRIBUTION WIDTH 15.8 % (11.6-17.2); WHITE BLOOD COUNT 7.6 TH/MM3 (4.0-11.0)
[2016-11-24 05:57] LABS: HEMO FLAGS AUTO DIFF
[2016-11-24 06:03] LABS: APTT (PATIENT) 27.6 SEC (24.3-30.1); PROTHROMBIN TIME - PATIENT 11.6 SEC (9.8-11.6)
[2016-11-24 06:19] LABS: BICARBONATE 28.6 MEQ/L (21.0-32.0); INDIRECT BILIRUBIN 0.2 MG/DL (0.0-0.8); MAGNESIUM 2.5 MG/DL (1.5-2.5)
[2016-11-24 06:24] LABS: CALCIUM-PROTEIN CORRECTED 7.5 MG/DL (8.5-10.1)
[2016-11-24] MEDS: fentaNYL 2,500 MCG/NS 250 ML IV PRN (06:41)
[2016-11-24] MEDS: DEXTROSE 5% IN WATE 1000ML INJ 1,000 ML IV SCH (06:42)
[2016-11-24 07:13] LABS: BANDS 22 % (0-6); EOSINOPHILS 2 % (0-4); MYELOCYTES 1 % (0-0); POLYS (SEG NEUTROPHILS) 69 % (16-70); WBC DIFF SAMPLE 100
[2016-11-24 07:14] LABS: PLATELET ESTIMATE SMEAR LOW (NORMAL); PLATELET MORPHOLOGY NORMAL (NORMAL); SCAN/DIFF FINAL DIFF MANUAL
[2016-11-24] MEDS ORDERED: MAGNESIUM OXIDE 400 MG TAB PO PRN (07:30)
[2016-11-24] MEDS ORDERED: MAGNESIUM SULFATE INJ 2 GM in SODIUM CHLORIDE 0.9% INJ 96 ML IV PRN (07:30)
[2016-11-24] MEDS ORDERED: POTASSIUM CHLORIDE 25 MEQ EFFERVESCENT TAB PO PRN (07:30)
[2016-11-24] MEDS ORDERED: SODIUM PHOSPHATE INJ 30 MMOL in SODIUM CHLOR 0.9% 250 ML INJ 240 ML IV PRN (07:30)
[2016-11-24] MEDS ORDERED: MAGNESIUM SULFATE INJ 4 GM in SODIUM CHLORIDE 0.9% INJ 92 ML IV PRN (07:30)
[2016-11-24] MEDS ORDERED: POTASSIUM CHLOR 20 MEQ PREMIX 100 ML IV PRN (07:30)
[2016-11-24] MEDS ORDERED: POTASSIUM CHLOR 40 MEQ PREMIX 100 ML IV PRN (07:30)
[2016-11-24] MEDS ORDERED: POTASSIUM PHOSPHATE MONOBASIC 500 MG TAB PO PRN (07:30)
[2016-11-24] MEDS ORDERED: POTASSIUM PHOSPHATE INJ 30 MMOL in SODIUM CHLOR 0.9% 250 ML INJ 250 ML IV PRN (07:30)
[2016-11-24] MEDS ORDERED: POTASSIUM PHOSPHATE MONOBASIC 500 MG TAB PO/TUBE PRN (07:30)
--- NOTE | 2016-11-24 07:33 | HHI.CCPN ---
Subjective Remarks/Hospital Course The patient is a 45-year-old male with past medical history of colon cancer on radiation treatment last session on Wednesday and has been on radiation for the past 2-3 months being followed by Dr. Harrell, his oncologist, and Dr. Galvan. He presented to [facility] emergency department with a couple of days history of shortness of breath, pleuritic chest pain with deep inspiration , dry cough and feeling nauseous. The patient denies any exposure to sick contacts. In addition, he denies any prior history of pneumonia or flu. He was found to have a temperature of 101.4 orally in the ER. In addition hewas tachycardiac with heart rate of 120s to 130s. Chest x-ray in the ER showed new bilateral mild air space opacities. The patient subsequently had CT scan of the chest which showed multiple new solid and cavitary irregular nodules seen throughout the lungs bilaterally, and small right-sided pleural effusion. His laboratory data is significant for renal failure with a creatinine level of 2.29 and hypokalemia with a potassium level of 2.8. His lactic acid level measured at 1.2. The patient also is thrombocytopenic with a platelet count of 55, however, his INR is 1.2. In the ED he was given three liters of Crystalloid in addition to cefepime, azithromycin, Tylenol and DuoNeb. When seen in the ER he was on room air oxygen with saturation 96%. However, tachycardiac with heart rate of 123 and blood pressure 154/75. He denies any vomiting, abdominal pain. 11/16 No events overnight. Patient is lying in bed in NAD. Afebrile. renal function is improving with Cr: 1.54 from 2.0. Echo from yesterday showed vegetation on TV, EF 50-55%. 11/17 Patient is lying in bed in NAD. Afebrile. 11/18: decompensated overnight. now intubated, on vasopressors, on 100% fio2 APRV with paO2 72. severe ARDS likely combination of pulmonary septic emboli combined with CHF from severe TR, however also now in septic shock. 11/19: persistently hypoxic on APRV. fio2 weaned but still requiring high Phigh in order to remain oxygenated. Cr continues to rise with minimal uop (~300cc/24h ) despite bumex drip. vasopressors continue and remains in shock. 11/20 Patient is sedated with Diprivan, Fentanyl and intubated. On Levophed 8 mics and Vasopressin 0.04 mics. Afebrile. On Bumex drip. 11/21 Patient remains intubated and sedated with Diprivan and Fentanyl. Afebrile. On Bumex drip 0.5mg/hr. Renal function is improving with Cr: 3.21 from 3.81 with UOP: 9424ml in 24 hrs Off all pressors. 11/22 Patient remains sedated with Diprivan, Fentanyl and intubated. T:100.4 at 4 am. WBC is trending down. Renal function is improving with Cr: 2.59 today from 3.21 on Bumex drip 0.5mg/hr. 11/23 Patient is off Diprivan was on Feminal drip overnight however he is awake and follows simple commands. T:100.7. Off Bumex drip. Patient was given additional 2units PRBC ( 3 total) overnight Hgb 9.3 from 6.9. 11/24 No events overnight. Tolerated CPAP for several hrs yesterday now sedated with Diprivan and Fentanyl drips. s/p LP yesterday clear CSF normal protein and glc.. Renal function continue to improve with Cr: 1.29 today from 1.69. Tmax 101.3 Objective Vital Signs Date Time Temp Pulse Resp B/P (MAP) Pulse Ox O2 Delivery O2 Flow Rate FiO2 11/24/16 05:00 91 17 116/70 (85) 93 11/24/16 04:00 45 11/24/16 04:00 99.8 11/23/16 08:09 Ventilator Intake and Output 11/24/16 11/24/16 11/25/16 08:00 16:00 00:00 Intake Total 3219.9 ml Output Total 900 ml Balance 2319.9 ml Result Diagram: 11/24/16 04311/24/16 043 Other Results Laboratory Tests Test 11/23/16 15:18 11/24/16 04:30 CSF Volume (Tube 1) 2.9 ML CSF Supernatant Color (tube 1) CLEAR CSF Gross Blood (Tube 1) TRACE CSF Volume (Tube 2) 3.0 ML CSF Supernatant Color (tube 2) CLEAR CSF Gross Blood (Tube 2) TRACE CSF Volume (Tube 3) 2.1 ML CSF Supernatant Color (tube 3) CLEAR CSF Gross Blood (Tube 3) TRACE CSF Volume (Tube 4) 2.0 ML CSF Supernatant Color (tube 4) CLEAR CSF WBC (Tube 4) 10 /MM3 CSF RBC (Tube 4) 297 /MM3 CSF Neutrophils 36 % CSF Lymphocytes 37 % CSF Monocytes 27 % CSF Glucose 77 MG/DL CSF Total Protein 22.5 MG/DL White Blood Count 7.6 TH/MM3 Red Blood Count 3.36 MIL/MM3 Hemoglobin 9.0 GM/DL Hematocrit 27.0 % Mean Corpuscular Volume 80.4 FL Mean Corpuscular Hemoglobin 26.6 PG Mean Corpuscular Hemoglobin Concent 33.1 % Red Cell Distribution Width 15.8 % Platelet Count 98 TH/MM3 Mean Platelet Volume 7.9 FL Neutrophils (%) (Auto) 88.9 % Lymphocytes (%) (Auto) 6.2 % Monocytes (%) (Auto) 3.6 % Eosinophils (%) (Auto) 1.1 % Basophils (%) (Auto) 0.2 % Neutrophils # (Auto) 6.7 TH/MM3 Lymphocytes # (Auto) 0.5 TH/MM3 Monocytes # (Auto) 0.3 TH/MM3 Eosinophils # (Auto) 0.1 TH/MM3 Basophils # (Auto) 0.0 TH/MM3 CBC Comment AUTO DIFF Differential Total Cells Counted 100 Neutrophils % (Manual) 69 % Band Neutrophils % 22 % Lymphocytes % 3 % Monocytes % 3 % Eosinophils % 2 % Neutrophils # (Manual) 7.0 TH/MM3 Myelocytes 1 % Differential Comment FINAL DIFF MANUAL Platelet Estimate LOW Platelet Morphology Comment NORMAL Prothrombin Time 11.6 SEC Prothromb Time International Ratio 1.0 RATIO Activated Partial Thromboplast Time 27.6 SEC Blood Urea Nitrogen 42 MG/DL Creatinine 1.29 MG/DL Random Glucose 125 MG/DL Total Protein 6.7 GM/DL Albumin 1.4 GM/DL Calcium Level 7.3 MG/DL Phosphorus Level 2.6 MG/DL Magnesium Level 2.5 MG/DL Alkaline Phosphatase 215 U/L Aspartate Amino Transf (AST/SGOT) 45 U/L Alanine Aminotransferase (ALT/SGPT) 37 U/L Total Bilirubin 1.0 MG/DL Direct Bilirubin 0.8 MG/DL Sodium Level 151 MEQ/L Potassium Level 3.0 MEQ/L Chloride Level 118 MEQ/L Carbon Dioxide Level 28.6 MEQ/L Anion Gap 4 MEQ/L Estimat Glomerular Filtration Rate 61 ML/MIN Protein Corrected Calcium 7.5 MG/DL Indirect Bilirubin 0.2 MG/DL Imaging Last Impressions Chest X-Ray 11/22/16 Signed Impressions: Service Date/Time: Tuesday, November 22, 2016 11:08 - CONCLUSION: No significant change has occurred. Yung Browning MD Thoracic Spine MRI 11/20/16 Signed Impressions: Service Date/Time: Sunday, November 20, 2016 21:36 - CONCLUSION: 1. No focal abnormality within the thoracic spine. 2. There is edema/inflammatory change seen in the soft tissues to the left of the C7 and T1 spinous processes better seen on the cervical spine MRI examination. 3. Cavitary lesions in the lungs. Manolo Anne MD Lumbar Spine MRI 11/20/16 Signed Impressions: Service Date/Time: Sunday, November 20, 2016 21:36 - CONCLUSION: 1. No areas of significant stenosis. The disc spaces are preserved. 2. Mild facet hypertrophy at the L3-L4 and L4-L5 old. 3. Nonspecific areas of edema within the soft tissues adjacent to the spinous processes throughout the lumbar spine. This can be seen secondary to some dependent edema. Inflammatory change cannot be excluded. It does appear fairly symmetric when comparing right to left. 4. Ascites. Manolo Anne MD Chest CT 11/20/16 Signed Impressions: Service Date/Time: Sunday, November 20, 2016 11:30 - CONCLUSION: Deterioration in the appearance of the chest with increasing size of nodules and consolidation. Worsening of an inflammatory process is suspected. Michael Youssef MD FACR Cervical Spine MRI 11/20/16 Signed Impressions: Service Date/Time: Sunday, November 20, 2016 21:36 - CONCLUSION: 1. 2.4 cm vague area of edema seen to the left of the spinous processes of C7 and T1 concerning for focal inflammatory/infectious change. The spinous processes themselves demonstrate normal signal. 2. Suspected hemangioma at the C7 vertebral body. 3. Fluid in the nasopharynx, oropharynx and hypopharynx. There is an NG tube and ET tube in place. Manolo Anne MD Brain MRI 11/20/16 Signed Impressions: Service Date/Time: Sunday, November 20, 2016 21:36 - CONCLUSION: 1. Abnormal gyriform signal abnormality in the left frontal and parietal regions associated with some minimally increased signal on the diffusion weighted images. Findings are nonspecific. Differential diagnosis includes an area of meningitis or leptomeningeal spread of tumor given history of malignancy. Infarction less likely. No associated mass effect. Recommend further evaluation with MRI brain with contrast to assess for abnormal meningeal enhancement. Bruno Cleaning MD Abdomen/Pelvis CT 11/20/16 0000 Signed Impressions: Service Date/Time: Sunday, November 20, 2016 11:30 - CONCLUSION: Significant aeration appearance of the lungs. Generalized anasarca, negative for abscess. Adults abdominal abscess. Michael Youssef MD FACR Renal Ultrasound 11/15/16 0000 Signed Impressions: Service Date/Time: Tuesday, November 15, 2016 10:26 - CONCLUSION: Normal examination. Katie Nevarez MD Objective Remarks GENERAL: Patient is 45 yo critically ill intubated and sedated SKIN: Warm and dry. HEAD: Normocephalic. EYES: No scleral icterus. No injection or drainage. NECK: Supple, trachea midline. No JVD or lymphadenopathy. CARDIOVASCULAR: Tachycardic without murmurs, gallops, or rubs. RESPIRATORY: Breath sounds equal bilaterally. No accessory muscle use. GASTROINTESTINAL: Abdomen soft, non-tender, nondistended. MUSCULOSKELETAL: No cyanosis, or edema. Neuro: Sedated, intubated A/P Assessment and Plan Assessment: 45yM with 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 continues to be critically ill, ongoing shock and renal failure. poor prognosis. Plan Neuro: Metabolic encephalopathy - On Fentanyl/Diprivan infusion for sedation. Daily sedation vacation. -UDS: Opiates, Cocaine 11/23 s/p LP showed clear CSF, normal protein and glc, 10 WBC. Follow up on CSF cx and Cytology. 11/20: MRI brain: Abnormal gyriform signal abnormality in the left frontal and parietal regions associated with some minimally increased signal on the diffusion weighted images.ddx meningitis or leptomeningeal spread of tumor given history of malignancy. Neuro is following 11/20: Cervical CT: 2.4 cm vague area of edema seen to the left of the spinous processes of C7 and T1 concerning for focal inflammatory/infectious change. The spinous processes themselves demonstrate normal signal.. Suspected hemangioma at the C7 vertebral body 11/21 EEG: Encephalopathy, no epileptiform features. Pulm: Acute hypoxic and hypercarbic respiratory failure Septic pulmonary emboli Pulmonary Edema Severe ARDS - intubated 11/18 for worsening hypoxemia - Continue with vent support keep sat >92%. On PRVC RR 16, TV 550, IT;1.0, PEEP:5, FIO2 45% -Bronchodilators, ICU vent bundle. -CXR 11/22: patchy b/l airspace disease ( unchanged) repeat CXR today -repeat CT chest 11/20: increasing size of nodules and consolidation. - 11/15 CT chest showed cavitary and irregular nodules throughout the lungs bilaterally. CV: Septic Shock Congestive Heart Failure Exacerbation secondary to valvulopathy Severe tricuspid regurgitation Pulmonary Edema -Monitor HR and BP keep MAP>65mmHg - Echo showed EF 50-55%, +Vegetations on TV, severe TR : RACHEL Intravascular volume overload Hypernatremia..improving - Monitor renal function, I/O's, avoid nephrotoxins, place on electrolytes replacement protocol. Will need K replacement today. -Change Free water 250ml Q8,, d/c IVF monitor sodium level, Renal function improving with Cr: 1.29 today from 1.69 - Renal US 11/15: Unremarkable. Renal is following- Dr. young FEN/GI: Acute protein calorie malnutrition- moderate Anion-gap metabolic acidosis Intravascular volume overload Colon cancer on radiation treatment Hepatitis C On tube feeds-change to Glucerna 1.5 with goal rate 45ml/hr Protonix 40mg IV daily for GI prophylaxis ID: MRSA Tricuspid Valve infective endocarditis s/p Septic Shock - ID on board - Continue abx per ID ( On daptomycin, Rifampin, Teflaro, Acyclovir) monitor CK' s. -s/p LP 11/23: Clear CSF, 10 WBC, normal protein and glc. Follow up on CSF cx and Cytology - Echo showed vegetations on TV. - 11/15, 11/16, 09/17 BC: MRSA, 11/18 BC: MRSA - 11/15 Urine cx: MRSA, 11/18 sputum: MRSA -BC 11/20,11/21,11/22, 11/23: NGTD Heme: Anemia secondary to chronic illness Thrombocytopenia secondary to hepatic dysfunction - Monitor CBC - Patient s/p transfusion 3units PRBC total on 11/22, stool Hemoccult negative Endo: Hyperglycemia of critical illness - SSI with Accu-Cheks for glycemic control. GI prophylaxis with Protonix 40 milligrams daily and DVT prophylaxis with SCDs. Not on chemical anticoagulation prophylaxis due to thrombocytopenia. Lines: Right subclavian CVP placed 11/18, will d/c CVP line and place peripheral IV's. Level 3 Efrain Ortiz MD Nov 24, 2016 07:33
[2016-11-24 08:21] LABS: CKMB 0.6 NG/ML (0.5-3.6)
[2016-11-24] MEDS: RIFAMPIN 150 MG CAP PO SCH ×2 (09:08→21:03)
[2016-11-24] MEDS: POTASSIUM CHLOR 40 MEQ PREMIX 100 ML IV PRN ×2 (09:08→12:17)
[2016-11-24] MEDS: PANTOPRAZOLE SODIUM 40 MG VIAL IV SCH (09:09)
--- NOTE | 2016-11-24 09:09 | RADRPT ---
EXAM DATE/TIME: 11/23/2016 15:08 [facility] COMPARISON: No previous studies available for comparison. INDICATIONS : Patient is in need of a lumbar puncture due to altered mental status. MEDICAL HISTORY : History of colorectal cancer, acute renal failure, anemia, thrombocytopenia, right sided pleural effu brandon, pneumonia, SURGICAL HISTORY : N/A ENCOUNTER: Initial ACUITY: 1 week PAIN SCORE: 0/10 LOCATION: Patient is vented. LUMBAR PUNCTURE TIME: 1518 hours FLUORO TIME: 1.2 minutes 0 CONTRAST: ACCESS LEVEL: L2-3 OPENING PRESSURE: 22 cm of water CLOSING PRESSURE: Not requested. FLUID: 10 cc of clear CSF was collected and sent to the laboratory for analysis. PROCEDURE : 1. Fluoroscopic guided lumbar puncture. 2. Recording of opening pressure. The risks, benefits and alternatives to the procedure were explained and verbal and written consent w as obtained. The site was prepped in sterile fashion. Full sterile technique was used, including ca p, mask, sterile gloves and gown and a large sterile sheet. Hand hygiene and 2% chlorhexidine and/or betadine/alcohol prep was utilized per protocol for cutaneous antisepsis. The skin and subcutaneous tissues were infiltrated with local anesthetic solution. With fluoroscopic guidance the lumbar thecal sac was punctured at the above level described above and the opening pressure was recorded. The above described fluid was removed without difficulty. The patient tolerated the procedure well and there were no complications. CONCLUSION: Uncomplicated fluoroscopically guided lumbar puncture with pressures as above. Horace Kirkland MD on November 24, 2016 at 9:08 Board Certified Radiologist. This report was verified electronically.
--- NOTE | 2016-11-24 09:10 | RADRPT ---
EXAM DATE/TIME: 11/24/2016 07:41 [facility] COMPARISON: CHEST SINGLE AP, November 22, 2016, 11:08. INDICATIONS : Short of breath. MEDICAL HISTORY : Carcinoma, colon. SURGICAL HISTORY : None. ENCOUNTER: Subsequent ACUITY: 2 weeks PAIN SCORE: 0/10 LOCATION: Bilateral chest FINDINGS: The cardiac silhouette is normal in transverse diameter. Support lines and tubes are in satisfactory position. There is patchy alveolar disease bilaterally compatible with edema or pneumonia. The findin gs are improved when compared with the prior exam. A small right sided effusion is present. CONCLUSION: 1. Patchy alveolar disease characteristic of edema or pneumonia. The findings are improved when comp ared with the prior exam. Horace Kirkland MD on November 24, 2016 at 9:08 Board Certified Radiologist. This report was verified electronically.
--- NOTE | 2016-11-24 09:14 | HHI.NPPN ---
Subjective Interval History awake, alert, possible extubation today. Renal function and hypernatremia have improved. Objective Data Data Vital Signs Date Time Temp Pulse Resp B/P (MAP) Pulse Ox O2 Delivery O2 Flow Rate FiO2 11/24/16 08:15 93 45 11/24/16 06:00 101 11/24/16 05:00 91 17 116/70 (85) 93 11/24/16 04:00 45 11/24/16 04:00 93 45 11/24/16 04:00 93 11/24/16 04:00 99.8 93 18 119/72 (88) 93 11/24/16 03:00 100 27 123/83 (96) 94 11/24/16 02:00 100 22 118/74 (89) 93 11/24/16 02:00 100 11/24/16 01:20 93 45 11/24/16 01:00 88 17 112/68 (83) 93 11/24/16 00:00 99.1 94 18 122/74 (90) 93 11/24/16 00:00 94 11/24/16 00:00 45 11/23/16 23:00 94 20 118/77 (91) 93 11/23/16 22:00 87 11/23/16 22:00 87 17 117/72 (87) 94 11/23/16 21:58 94 45 11/23/16 21:00 84 18 118/75 (89) 94 11/23/16 20:00 98.7 86 17 113/70 (84) 94 11/23/16 20:00 45 11/23/16 20:00 86 11/23/16 19:00 87 17 116/72 (87) 93 11/23/16 18:00 86 11/23/16 16:05 92 45 11/23/16 16:00 89 11/23/16 16:00 101.2 89 23 114/73 (87) 92 11/23/16 16:00 45 11/23/16 14:00 83 11/23/16 13:40 95 45 11/23/16 12:00 45 11/23/16 12:00 101.3 97 29 125/73 (90) 94 11/23/16 12:00 97 11/23/16 10:34 95 45 11/23/16 10:00 101 -: 11/24/16 0430 11/24/16 0430 Microbiology 11/23/16 Aerobic Blood Culture, Received Pending 11/23/16 Anaerobic Blood Culture, Received Pending 11/23/16 Aerobic Blood Culture, Received Pending 11/23/16 Anaerobic Blood Culture, Received Pending 11/23/16 Acid Fast Stain, Received Pending 11/23/16 Mycobacterial Culture, Received Pending 11/23/16 Gram Stain - Final, Resulted 11/23/16 CSF Culture - Preliminary, Resulted NO GROWTH IN 24 HOURS. Physical Exam General Appearance: Malnourished Eyes Eye Exam: Pupils Equal Throat Throat Exam: Oral Mucosa [place] & Moist Neck Neck Exam: Neck Supple Pulmonary Resp Exam: Clear Bilaterally, Breath Sounds Equal, Decreased Bases Cardiology CV Exam: Regular, Normal Sinus Rhythm Gastrointestinal/Abdomen GI Exam: Soft, Non-Tender, Bowel Sounds Present, Non-Distended Extremeties Extremities Exam: No Edema Neurologic Neuro Exam: Alert, Awake, Moving All Extremities Assessment/Plan Problem List: (1) Acute renal failure ICD Codes: N17.9 - Acute kidney failure, unspecified Plan: Renal function has improved. Continue supportive care. Avoid nephrotoxins. He is on Acyclovir IV: consider stopping it if not necessary. (2) Hypokalemia ICD Codes: E87.6 - Hypokalemia Plan: replacement ordered. (3) Hyperosmolality and hypernatremia ICD Codes: E87.0 - Hyperosmolality and hypernatremia Plan: Bumex drip stopped. Improved, D5W stopped by Dr. Rose. Continue free water. (4) Severe sepsis ICD Codes: A41.9 - Sepsis, unspecified organism; R65.20 - Severe sepsis without septic shock Status: Acute Plan: with MRSA bacteremia ID following + TV endocarditis, septic emboli He is currently on Rifampin, Ceftaroline, and Daptomycin. (5) Rectal cancer ICD Codes: C20 - Malignant neoplasm of rectum Status: Acute Plan: has had radiation as recent as last week patient was seen by his oncologist. Leonidas Gillis MD Nov 24, 2016 09:14
--- NOTE | 2016-11-24 10:03 | PD.ONC.PN ---
Subjective Subjective Remarks Tmax 101.2 yesterday afternoon. Patient intubated, but per nurse plans to extubate this afternoon. No overnight events. Underwent LP yesterday. Objective Data Date Time Temp Pulse Resp B/P (MAP) Pulse Ox O2 Delivery O2 Flow Rate FiO2 11/24/16 09:42 95 45 11/24/16 08:15 93 45 11/24/16 06:00 101 11/24/16 05:00 91 17 116/70 (85) 93 11/24/16 04:00 45 11/24/16 04:00 93 45 11/24/16 04:00 93 11/24/16 04:00 99.8 93 18 119/72 (88) 93 11/24/16 03:00 100 27 123/83 (96) 94 11/24/16 02:00 100 22 118/74 (89) 93 11/24/16 02:00 100 11/24/16 01:20 93 45 11/24/16 01:00 88 17 112/68 (83) 93 11/24/16 00:00 99.1 94 18 122/74 (90) 93 11/24/16 00:00 94 11/24/16 00:00 45 11/23/16 23:00 94 20 118/77 (91) 93 11/23/16 22:00 87 11/23/16 22:00 87 17 117/72 (87) 94 11/23/16 21:58 94 45 11/23/16 21:00 84 18 118/75 (89) 94 11/23/16 20:00 98.7 86 17 113/70 (84) 94 11/23/16 20:00 45 11/23/16 20:00 86 11/23/16 19:00 87 17 116/72 (87) 93 11/23/16 18:00 86 11/23/16 16:05 92 45 11/23/16 16:00 89 11/23/16 16:00 101.2 89 23 114/73 (87) 92 11/23/16 16:00 45 11/23/16 14:00 83 11/23/16 13:40 95 45 11/23/16 12:00 45 11/23/16 12:00 101.3 97 29 125/73 (90) 94 11/23/16 12:00 97 11/23/16 10:34 95 45 11/23/16 10:00 101 11/24/16 11/24/16 11/24/16 07:00 15:00 23:00 Intake Total 3219.9 ml Output Total 900 ml Balance 2319.9 ml Result Diagram: 11/24/16 0430 11/24/16 0430 Laboratory Results Laboratory Tests Test 11/23/16 15:18 11/24/16 04:30 CSF Volume (Tube 1) 2.9 ML CSF Supernatant Color (tube 1) CLEAR CSF Gross Blood (Tube 1) TRACE CSF Volume (Tube 2) 3.0 ML CSF Supernatant Color (tube 2) CLEAR CSF Gross Blood (Tube 2) TRACE CSF Volume (Tube 3) 2.1 ML CSF Supernatant Color (tube 3) CLEAR CSF Gross Blood (Tube 3) TRACE CSF Volume (Tube 4) 2.0 ML CSF Supernatant Color (tube 4) CLEAR CSF WBC (Tube 4) 10 /MM3 CSF RBC (Tube 4) 297 /MM3 CSF Neutrophils 36 % CSF Lymphocytes 37 % CSF Monocytes 27 % CSF Glucose 77 MG/DL CSF Total Protein 22.5 MG/DL White Blood Count 7.6 TH/MM3 Red Blood Count 3.36 MIL/MM3 Hemoglobin 9.0 GM/DL Hematocrit 27.0 % Mean Corpuscular Volume 80.4 FL Mean Corpuscular Hemoglobin 26.6 PG Mean Corpuscular Hemoglobin Concent 33.1 % Red Cell Distribution Width 15.8 % Platelet Count 98 TH/MM3 Mean Platelet Volume 7.9 FL Neutrophils (%) (Auto) 88.9 % Lymphocytes (%) (Auto) 6.2 % Monocytes (%) (Auto) 3.6 % Eosinophils (%) (Auto) 1.1 % Basophils (%) (Auto) 0.2 % Neutrophils # (Auto) 6.7 TH/MM3 Lymphocytes # (Auto) 0.5 TH/MM3 Monocytes # (Auto) 0.3 TH/MM3 Eosinophils # (Auto) 0.1 TH/MM3 Basophils # (Auto) 0.0 TH/MM3 CBC Comment AUTO DIFF Differential Total Cells Counted 100 Neutrophils % (Manual) 69 % Band Neutrophils % 22 % Lymphocytes % 3 % Monocytes % 3 % Eosinophils % 2 % Neutrophils # (Manual) 7.0 TH/MM3 Myelocytes 1 % Differential Comment FINAL DIFF MANUAL Platelet Estimate LOW Platelet Morphology Comment NORMAL Prothrombin Time 11.6 SEC Prothromb Time International Ratio 1.0 RATIO Activated Partial Thromboplast Time 27.6 SEC Blood Urea Nitrogen 42 MG/DL Creatinine 1.29 MG/DL Random Glucose 125 MG/DL Total Protein 6.7 GM/DL Albumin 1.4 GM/DL Calcium Level 7.3 MG/DL Phosphorus Level 2.6 MG/DL Magnesium Level 2.5 MG/DL Alkaline Phosphatase 215 U/L Aspartate Amino Transf (AST/SGOT) 45 U/L Alanine Aminotransferase (ALT/SGPT) 37 U/L Total Bilirubin 1.0 MG/DL Direct Bilirubin 0.8 MG/DL Sodium Level 151 MEQ/L Potassium Level 3.0 MEQ/L Chloride Level 118 MEQ/L Carbon Dioxide Level 28.6 MEQ/L Anion Gap 4 MEQ/L Estimat Glomerular Filtration Rate 61 ML/MIN Protein Corrected Calcium 7.5 MG/DL Indirect Bilirubin 0.2 MG/DL Total Creatine Kinase 325 U/L Creatine Kinase MB 0.6 NG/ML Creatine Kinase MB % 0.2 % Culture Results Microbiology Date/Time Source Procedure Growth Status 11/23/16 20:42 Blood Peripheral Aerobic Blood Culture Pending Received 11/23/16 20:42 Blood Peripheral Anaerobic Blood Culture Pending Received 11/23/16 17:30 Blood Line Aerobic Blood Culture Pending Received 11/23/16 17:30 Blood Line Anaerobic Blood Culture Pending Received 11/22/16 03:58 Blood Peripheral Aerobic Blood Culture - Preliminary NO GROWTH IN 1 DAY Resulted 11/22/16 03:58 Blood Peripheral Anaerobic Blood Culture - Preliminary NO GROWTH IN 1 DAY Resulted 11/21/16 14:00 Blood Peripheral Aerobic Blood Culture - Preliminary NO GROWTH IN 2 DAYS Resulted 11/21/16 14:00 Blood Peripheral Anaerobic Blood Culture - Preliminary NO GROWTH IN 2 DAYS Resulted 11/23/16 15:18 Cerebral Spinal Fluid Lumbar Puncture Acid Fast Stain Pending Received 11/23/16 15:18 Cerebral Spinal Fluid Lumbar Puncture Mycobacterial Culture Pending Received 11/23/16 15:18 Cerebral Spinal Fluid Lumbar Puncture Gram Stain - Final Resulted 11/23/16 15:18 Cerebral Spinal Fluid Lumbar Puncture CSF Culture - Preliminary NO GROWTH IN 24 HOURS. Resulted 11/22/16 18:00 Stool Stool Stool Occult Blood (MAHOGANY) - Final HEMOCCULT NEGATIVE Complete Imaging Studies Last 24 hours Impressions Chest X-Ray 11/24/16 0000 Signed Impressions: Service Date/Time: Thursday, November 24, 2016 07:41 - CONCLUSION: 1. Patchy alveolar disease characteristic of edema or pneumonia. The findings are improved when compared with the prior exam. Horace Kirkland MD Administered Medications Medications (Trade) Dose Ordered Sig/Osvaldo Route PRN Reason Start Time Stop Time Status Last Admin Dose Admin Pantoprazole Sodium (Protonix Inj) 40 mg DAILY IV 11/15/16 10:00 11/24/16 09:09 Ipratropium [place] (Atrovent Neb) 0.5 mg Q2HR NEB PRN INH WHEEZING 11/15/16 09:00 11/18/16 01:12 Chlorhexidine Gluconate (Chlorhexidine 2% Cloth) Taper DAILY@04 TOP 11/16/16 04:00 11/12/17 03:59 11/21/16 04:00 Insulin Human Regular (NovoLIN R SUPPLEMENTAL SCALE) 1 Q6H SQ 11/15/16 11:00 11/21/16 22:24 Ondansetron HCl (Zofran Inj) 4 mg Q8H PRN IV PUSH NAUSEA OR VOMITING 11/15/16 13:15 11/23/16 12:09 Daptomycin 590 mg/ Sodium Chloride 100 ml @ 200 mls/hr Q24H IV 11/17/16 12:00 11/23/16 12:02 Rifampin (Rifampin) 150 mg Q12HR PO 11/17/16 21:00 11/24/16 09:08 Norepinephrine Bitartrate 16 mg/ Sodium Chloride 250 ml @ 1.87 mls/hr TITRATE PRN IV Maintain MAP > 65 mmHg 11/18/16 06:45 11/19/16 07:52 Fentanyl Citrate 250 ml @ 5 mls/hr TITRATE PRN IV Sedation 11/19/16 17:00 11/24/16 06:41 Ceftaroline Fosamil 400 mg/ Sodium Chloride 100 ml @ 100 mls/hr Q8H IV 11/21/16 11:00 11/24/16 03:51 Propofol 100 ml @ 2.19 mls/hr TITRATE PRN IV SEDATION 11/21/16 12:15 11/24/16 04:33 Acyclovir Sodium 730 mg/Sodium Chloride 150 ml @ 150 mls/hr Q8H IV 11/21/16 14:00 11/24/16 04:50 Acetaminophen (Tylenol) 650 mg Q6H PRN PO fever 11/22/16 11:45 11/23/16 12:09 Water (Free Water) 300 ml Q4HR G-TUBE 11/23/16 08:00 11/24/16 03:51 Dextrose 1,000 ml @ 84 mls/hr [id number] IV 11/23/16 08:00 11/24/16 06:42 Albuterol/ Ipratropium (Duoneb Neb) 1 ampule Q6HR NEB NEB 11/23/16 12:00 11/24/16 08:09 Potassium Chloride 100 ml @ 50 mls/hr Q2H PRN IV For Potassium 2.8 - 3.2 mEq/L 11/24/16 07:30 11/24/16 09:08 Objective Remarks GENERAL: Intubated male upright in bed SKIN: Warm and dry. HEAD: Normocephalic. EYES: No injection or drainage. NECK: Supple, trachea midline. CARDIOVASCULAR: +S1/S2, tachy RESPIRATORY: anterior thomas clear. on mechanical ventilation GASTROINTESTINAL: Abdomen soft, non-tender, nondistended. EXTREMITIES: No cyanosis NEUROLOGICAL: awake and alert. follows commands. Assessment/Plan Problem List: (1) Rectal cancer ICD Codes: C20 - Malignant neoplasm of rectum Status: Acute Plan: Completed XRT in his time, unlikely with Xeloda. Lost to follow up since August. States he had alot of personal problem he could not complete his therapy as scheduled. Treatment less than ideal which is concerning as the efficacy of treatment and cure is greatly diminished. Reports Dr. Galvan happy with his response but sounds like he was residual disease evident. He will need definitive surgery after infection resolved. No nodules present at time of dx, nodules appear with clinical picture of bacterial endocarditis. 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 ID following. 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 Course complicated by MRSA bacteremia from IVDA. Plan 1. will await cytology from LP 2. continue antibiotics per infectious disease 3. supportive care. Attending Statement The exam, history, and the medical decision-making described in the above note were completed with the assistance of the mid-level provider. I reviewed and agree with the findings presented. I attest that I had a [id number] encounter with the patient on the same day, and personally performed and documented my assessment and findings in the medical record. Pt tolerated extubation, denies SKINNER or vision changes. Noted MRI findings, rectal cancer do not typically present with meningeal carcinomatosis, consider that pt was immunosuppressed vs second primary. Await cytology. No neurologic symptoms attributed to meningeal carcinomatosis. Need to follow pt clinical course, if true finding pt's prognosis is extremely poor from days to several weeks with neurologic decline. So far pt appear to recall events during his sedation vacation, cooperated with weaning, moves all 4 extremities. We will follow. Sherrill Caba Nov 24, 2016 10:03 Vielka Harrell MD Nov 24, 2016 19:05
--- NOTE | 2016-11-24 10:52 | HHI.IDPN ---
Subjective Subjective Remarks is a 45 y/o CM with history of Rectal Cancer (Invasive moderately differentiated Adenocarcinoma with no prior lung or distant mets), and has no port or PICC line and has been receiving oral chemotherapy. Patient is followed by Dr. Vielka Harrell. Patient also sees colorectal surgeon and has undergone colonoscopy but no definite surgery. Patient also has been seeing Dr. Santana radiation oncologist and has been undergoing radiation therapy. Reportedly, the patient's last radiation therapy was on Wednesday before admission. Admitted with sepsis. Intubated. BC with MRSA. Sputum with MRSA, TTE with TV vegetatuin and severe TR. CTA with findings of pulmonary septic emboli. MRI cervical abnormal finidngs of inflammatory changes to the left of C7-T1 Infectious disease was consulted for the management of sepsis, pneumonia in an immune compromised patient. Notes reviewed Opens eyes spontaneously. Moves all 4 extremities on command. Smiles. Nodes yes to questions appropriately. Tmax 101.2 F Not on pressors All BC with MRSA, up to 11/18 Creatinine elevated but decreasing, has good UO No rash No diarrhea CL and peripheral placed in midst of bacteremia. Likely source of ongoing bacteremia. Antibiotics Dapto IV Teflaro IV Rifampin Lines Line sites with no e.o infection. Past Medical History reviewed. Allergies: Coded Allergies: No Known Allergies (Unverified , 11/15/16) Objective . Vital Signs Date Time Temp Pulse Resp B/P (MAP) Pulse Ox O2 Delivery O2 Flow Rate FiO2 11/24/16 09:42 95 45 11/24/16 08:15 93 45 11/24/16 06:00 101 11/24/16 05:00 91 17 116/70 (85) 93 11/24/16 04:00 45 11/24/16 04:00 93 45 11/24/16 04:00 93 11/24/16 04:00 99.8 93 18 119/72 (88) 93 11/24/16 03:00 100 27 123/83 (96) 94 11/24/16 02:00 100 22 118/74 (89) 93 11/24/16 02:00 100 11/24/16 01:20 93 45 11/24/16 01:00 88 17 112/68 (83) 93 11/24/16 00:00 99.1 94 18 122/74 (90) 93 11/24/16 00:00 94 11/24/16 00:00 45 11/23/16 23:00 94 20 118/77 (91) 93 11/23/16 22:00 87 11/23/16 22:00 87 17 117/72 (87) 94 11/23/16 21:58 94 45 11/23/16 21:00 84 18 118/75 (89) 94 11/23/16 20:00 98.7 86 17 113/70 (84) 94 11/23/16 20:00 45 11/23/16 20:00 86 11/23/16 19:00 87 17 116/72 (87) 93 11/23/16 18:00 86 11/23/16 16:05 92 45 11/23/16 16:00 89 11/23/16 16:00 101.2 89 23 114/73 (87) 92 11/23/16 16:00 45 11/23/16 14:00 83 11/23/16 13:40 95 45 11/23/16 12:00 45 11/23/16 12:00 101.3 97 29 125/73 (90) 94 11/23/16 12:00 97 . Laboratory Tests Test 11/22/16 12:45 11/22/16 19:15 11/22/16 21:30 11/23/16 05:50 Hemoglobin 6.6 GM/DL 6.9 GM/DL 9.3 GM/DL Hematocrit 19.7 % 20.8 % 28.1 % Haptoglobin 300 MG/DL Reticulocyte Count 1.5 % Absolute Reticulocyte Count 39.3 MIL/L White Blood Count 7.8 TH/MM3 Red Blood Count 3.55 MIL/MM3 Mean Corpuscular Volume 79.1 FL Mean Corpuscular Hemoglobin 26.3 PG Mean Corpuscular Hemoglobin Concent 33.3 % Red Cell Distribution Width 15.8 % Platelet Count 107 TH/MM3 Mean Platelet Volume 8.1 FL Test 11/24/16 04:30 White Blood Count 7.6 TH/MM3 Red Blood Count 3.36 MIL/MM3 Hemoglobin 9.0 GM/DL Hematocrit 27.0 % Mean Corpuscular Volume 80.4 FL Mean Corpuscular Hemoglobin 26.6 PG Mean Corpuscular Hemoglobin Concent 33.1 % Red Cell Distribution Width 15.8 % Platelet Count 98 TH/MM3 Mean Platelet Volume 7.9 FL Neutrophils (%) (Auto) 88.9 % Lymphocytes (%) (Auto) 6.2 % Monocytes (%) (Auto) 3.6 % Eosinophils (%) (Auto) 1.1 % Basophils (%) (Auto) 0.2 % Neutrophils # (Auto) 6.7 TH/MM3 Lymphocytes # (Auto) 0.5 TH/MM3 Monocytes # (Auto) 0.3 TH/MM3 Eosinophils # (Auto) 0.1 TH/MM3 Basophils # (Auto) 0.0 TH/MM3 CBC Comment AUTO DIFF Differential Total Cells Counted 100 Neutrophils % (Manual) 69 % Band Neutrophils % 22 % Lymphocytes % 3 % Monocytes % 3 % Eosinophils % 2 % Neutrophils # (Manual) 7.0 TH/MM3 Myelocytes 1 % Differential Comment FINAL DIFF MANUAL Platelet Estimate LOW Platelet Morphology Comment NORMAL Laboratory Tests Test 11/22/16 12:45 11/22/16 19:15 11/23/16 05:50 11/24/16 04:30 Potassium Level 3.0 MEQ/L 3.0 MEQ/L 3.8 MEQ/L 3.0 MEQ/L Iron Level 16 MCG/DL Total Iron Binding Capacity 153 MCG/DL Percent Iron Saturation 10.5 % Blood Urea Nitrogen 51 MG/DL 42 MG/DL Creatinine 1.69 MG/DL 1.29 MG/DL Random Glucose 119 MG/DL 125 MG/DL Total Protein 6.9 GM/DL 6.7 GM/DL Albumin 1.4 GM/DL 1.4 GM/DL Calcium Level 7.7 MG/DL 7.3 MG/DL Alkaline Phosphatase 265 U/L 215 U/L Aspartate Amino Transf (AST/SGOT) 65 U/L 45 U/L Alanine Aminotransferase (ALT/SGPT) 34 U/L 37 U/L Total Bilirubin 1.9 MG/DL 1.0 MG/DL Direct Bilirubin 1.5 MG/DL 0.8 MG/DL Sodium Level 158 MEQ/L 151 MEQ/L Chloride Level 122 MEQ/L 118 MEQ/L Carbon Dioxide Level 30.4 MEQ/L 28.6 MEQ/L Anion Gap 6 MEQ/L 4 MEQ/L Estimat Glomerular Filtration Rate 45 ML/MIN 61 ML/MIN Indirect Bilirubin 0.4 MG/DL 0.2 MG/DL Phosphorus Level 2.6 MG/DL Magnesium Level 2.5 MG/DL Protein Corrected Calcium 7.5 MG/DL Total Creatine Kinase 325 U/L Creatine Kinase MB 0.6 NG/ML Creatine Kinase MB % 0.2 % Microbiology Date/Time Source Procedure Growth Status 11/23/16 20:42 Blood Peripheral Aerobic Blood Culture Pending Received 11/23/16 20:42 Blood Peripheral Anaerobic Blood Culture Pending Received 11/23/16 17:30 Blood Line Aerobic Blood Culture Pending Received 11/23/16 17:30 Blood Line Anaerobic Blood Culture Pending Received 11/22/16 03:58 Blood Peripheral Aerobic Blood Culture - Preliminary NO GROWTH IN 1 DAY Resulted 11/22/16 03:58 Blood Peripheral Anaerobic Blood Culture - Preliminary NO GROWTH IN 1 DAY Resulted 11/21/16 14:00 Blood Peripheral Aerobic Blood Culture - Preliminary NO GROWTH IN 2 DAYS Resulted 11/21/16 14:00 Blood Peripheral Anaerobic Blood Culture - Preliminary NO GROWTH IN 2 DAYS Resulted 11/23/16 15:18 Cerebral Spinal Fluid Lumbar Puncture Acid Fast Stain Pending Received 11/23/16 15:18 Cerebral Spinal Fluid Lumbar Puncture Mycobacterial Culture Pending Received 11/23/16 15:18 Cerebral Spinal Fluid Lumbar Puncture Gram Stain - Final Resulted 11/23/16 15:18 Cerebral Spinal Fluid Lumbar Puncture CSF Culture - Preliminary NO GROWTH IN 24 HOURS. Resulted 11/22/16 18:00 Stool Stool Stool Occult Blood (MAHOGANY) - Final HEMOCCULT NEGATIVE Complete Imaging Last Impressions Chest X-Ray 11/17/16 0000 Signed Impressions: Service Date/Time: Thursday, November 17, 2016 11:07 - CONCLUSION: Development of diffuse pulmonary infiltrates with consolidation additionally in the left lower lobe. Chencho Chaparro MD Renal Ultrasound 11/15/16 0000 Signed Impressions: Service Date/Time: Tuesday, November 15, 2016 10:26 - CONCLUSION: Normal examination. Katie Nevarez MD Chest CT 11/15/16 0000 Signed Impressions: Service Date/Time: Tuesday, November 15, 2016 09:10 - CONCLUSION: Multiple new solid and cavitary irregular nodules seen throughout the lungs bilaterally. These may represent foci of metastatic disease, however, given that these are new as compared to the prior exam of July 2016 concern is for possible septic emboli given the cavitary lesions. Small right-sided pleural effusion also favors possible infectious source. Katie Nevarez MD Physical Exam GENERAL: Opens eyes spontaneously, on the vent, looks comfortable SKIN: No rashes, ecchymoses or lesions. Cool and dry. HEAD: Atraumatic. Normocephalic. No temporal or scalp tenderness. EYES: Pupils equal round and reactive. Extraocular motions intact. No scleral icterus. No injection or drainage. ENT: Intubated. Nose without bleeding, purulent drainage or septal hematoma. NECK: Trachea midline. Supple, nontender, no meningeal signs. CARDIOVASCULAR: Tachycardic, no rub RESPIRATORY: Decreased AE in bases. GASTROINTESTINAL: Abdomen soft, non-tender, nondistended. MUSCULOSKELETAL: Extremities without clubbing, cyanosis, or edema. NEUROLOGICAL: Sedated Psych could not be assessed. IV line sites with no evidence of infection. Assessment & Plan Remarks Septic Shock with MODS (fever, tachy, low BP, bandemia, source: lung, endocarditis) MRSA bacteremia, TV endocarditis with severe TR. Possible CL infection new vs ongoing seeding due to line being placed in middle of bacteremia. Abnormal MRI brain, ?septic emboli likely meningitis (partially treated at this point) Lung lesions: septic emboli most likely. Other differentials include cancer related mets. Very less likely to be fungal or TB. Acute renal failure: prerenal, sepsis. Acute metabolic encephalopathy: sepsis, less likely to be meningitis. Hyponatremia: Infection, metabolic, meningitis Hepatitis C positive. Recommendations: Continue Daptomycin IV (Re: Worsening clinically, resp distress, back pain, neck pain ? further dissemination). Does not cover Pneumonia. Continue Rifampin oral (cannot use Genta due to ARF). Follow LFTs if increases further consider stopping. If BCX remain negative at 48 hrs ok to stop Rifampin. Continue Teflaro IV (MRSA bacteremia, Cannot use Nephrotoxins plus Vanco MAHOGANY 2 and clinically failing) If overnight any change in clinical condition start Micafungin IV. At risk for fungemia. CSF studies from LP today not suggestive of bacterial infection but MRI concerning for possible cerebritis. Follow cultures Follow clinically. CL removal today. Peripheral IV lines to be swapped as well. Follow repeat blood cultures from line and periphery. Lucille Lizama MD Nov 24, 2016 10:52
[2016-11-24 11:45] LABS: BLOOD GAS BASE EXCESS 1.4 mmol/L (-2-2); BLOOD GAS CARBOXYHEMOGLOBIN 1.2 % (0-4); BLOOD GAS HCO3 25 mmol/L (22-26); BLOOD GAS O2 HGB SATURATION 97 % (90-100); BLOOD GAS OXYGEN CONTENT 14.1 Vol % (12.0-20.0); BLOOD GAS PCO2 33 mmHg (38-42); BLOOD GAS PO2 145 mmHg (61-120); BLOOD GAS TOTAL HGB 10.2 G/DL (12.0-16.0); CRITICAL VALUE NO; DRAW SITE RT RADIAL; NUMBER OF ARTERIAL PUNCTURES 1; OXYGEN DEVICE VENTILATOR; STAT NO; TEMP CORR TO 98.6; VENT SETTINGS CPAPPEEP5/PS10
[2016-11-24 11:47] LABS: FIO2 45 %
[2016-11-24] MEDS ORDERED: RESP: ALBUTEROL 2.5 MG/IPRATROPIUM 0.5 MG NEB (PRN) NEB (12:00)
[2016-11-24] MEDS: ONDANSETRON HCL 4 MG/2 ML VIAL IV PUSH PRN (13:07)
[2016-11-24] MEDS: DAPTOMYCIN IV SCH (14:18)
[2016-11-25] VITALS (16 sets, daily range): BP systolic 126–143; BP diastolic 74–81; PULSE 79–101; RESP 20–35; TEMP 98.9–99.8; O2SAT 91–95
[2016-11-25] MEDS: CEFTAROLINE INJ 400 MG in SODIUM CHLORIDE 0.9% INJ 100 ML IV SCH ×3 (01:14→20:21)
[2016-11-25] MEDS: CHLORHEXIDINE GLUCONATE 2 % 1 PACK (2 CLOTHS) TOP SCH (01:14)
[2016-11-25] MEDS: FREE WATER G-TUBE SCH (01:14)
[2016-11-25] MEDS: ZOLPIDEM TARTRATE 10 MG TAB PO PRN ×2 (02:54→22:59)
[2016-11-25 03:28] LABS: AUTOMATED NEUTROPHIL # 8.2 TH/MM3 (1.8-7.7); BASOPHIL % 0.2 % (0.0-2.0); EOSINOPHIL % 0.5 % (0.0-4.0); HEMATOCRIT 27.8 % (39.0-51.0); LYMPH % 3.5 % (9.0-44.0); LYMPHOCYTE # 0.3 TH/MM3 (1.0-4.8); MEAN CORPUSCULAR HEMOGLOBIN 26.2 PG (27.0-34.0); MEAN CORPUSCULAR HGB CONC 32.8 % (32.0-36.0); MONO % 3.4 % (0.0-8.0); NEUT % 92.4 % (16.0-70.0); PLATELET COUNT 101 TH/MM3 (150-450); RED BLOOD COUNT 3.48 MIL/MM3 (4.50-5.90); WHITE BLOOD COUNT 8.8 TH/MM3 (4.0-11.0)
[2016-11-25 03:29] LABS: HEMO FLAGS AUTO DIFF
[2016-11-25 03:50] LABS: INDIRECT BILIRUBIN 0.4 MG/DL (0.0-0.8); POTASSIUM 3.3 MEQ/L (3.5-5.1); TOTAL BILIRUBIN ADULT 1.3 MG/DL (0.2-1.0)
[2016-11-25] MEDS: POTASSIUM CHLOR 20 MEQ PREMIX 100 ML IV PRN ×2 (03:59→07:00)
[2016-11-25] MEDS: INSULIN NovoLIN REGULAR SUPPLEMENTAL SCALE SQ SCH ×4 (04:00→23:00)
[2016-11-25] MEDS: RESP: ALBUTEROL 2.5 MG/IPRATROPIUM 0.5 MG NEB (SCH) NEB ×6 (04:14→23:30)
[2016-11-25 04:50] LABS: BANDS 2 % (0-6); CORRECTED NUCLEATED RBC 1 /100 WBC (0-0); NEUTROPHIL # MANUAL DIFF 8.4 TH/MM3 (1.8-7.7); POLYS (SEG NEUTROPHILS) 93 % (16-70); PROMYELOCYTES 1 % (0-0); SCAN/DIFF FINAL DIFF MANUAL; WBC DIFF SAMPLE 100
[2016-11-25 04:51] LABS: PLATELET ESTIMATE SMEAR LOW (NORMAL); PLATELET MORPHOLOGY NORMAL (NORMAL)
--- NOTE | 2016-11-25 05:31 | RADRPT ---
EXAM DATE/TIME: 11/25/2016 02:53 [facility] COMPARISON: CHEST SINGLE AP, November 24, 2016, 7:41. INDICATIONS : Short of breath. MEDICAL HISTORY : Carcinoma, colon. SURGICAL HISTORY : None. ENCOUNTER: Subsequent ACUITY: 1 week PAIN SCORE: 0/10 LOCATION: Bilateral chest FINDINGS: Patient has been extubated with NG tube removed. Right subclavian central line has also been removed. There is stable bilateral patchy airspace disease and slight interstitial prominence. Mild blunting of the right costophrenic angle consistent with small effusion. Cardiomedial contours are stable. Rem ainder of the exam is unchanged. CONCLUSION: 1. Stable patchy airspace disease and slight interstitial prominence consistent with atypical infecti on or edema pattern. 2. Stable small right pleural effusion. 1. Checo Leon MD on November 25, 2016 at 5:28 Board Certified Radiologist. This report was verified electronically.
[2016-11-25 06:29] LABS: CALCIUM-PROTEIN CORRECTED 7.5 MG/DL (8.5-10.1)
[2016-11-25] MEDS: PANTOPRAZOLE SODIUM 40 MG VIAL IV SCH (09:00)
[2016-11-25 09:47] LABS: HSV 1,PCR Negative (Negative)
--- NOTE | 2016-11-25 10:01 | HHI.CCPN ---
Subjective Remarks/Hospital Course The patient is a 45-year-old male with past medical history of colon cancer on radiation treatment last session on Wednesday and has been on radiation for the past 2-3 months being followed by Dr. Harrell, his oncologist, and Dr. Galvan. He presented to [facility] emergency department with a couple of days history of shortness of breath, pleuritic chest pain with deep inspiration , dry cough and feeling nauseous. The patient denies any exposure to sick contacts. In addition, he denies any prior history of pneumonia or flu. He was found to have a temperature of 101.4 orally in the ER. In addition hewas tachycardiac with heart rate of 120s to 130s. Chest x-ray in the ER showed new bilateral mild air space opacities. The patient subsequently had CT scan of the chest which showed multiple new solid and cavitary irregular nodules seen throughout the lungs bilaterally, and small right-sided pleural effusion. His laboratory data is significant for renal failure with a creatinine level of 2.29 and hypokalemia with a potassium level of 2.8. His lactic acid level measured at 1.2. The patient also is thrombocytopenic with a platelet count of 55, however, his INR is 1.2. In the ED he was given three liters of Crystalloid in addition to cefepime, azithromycin, Tylenol and DuoNeb. When seen in the ER he was on room air oxygen with saturation 96%. However, tachycardiac with heart rate of 123 and blood pressure 154/75. He denies any vomiting, abdominal pain. 11/16 No events overnight. Patient is lying in bed in NAD. Afebrile. renal function is improving with Cr: 1.54 from 2.0. Echo from yesterday showed vegetation on TV, EF 50-55%. 11/17 Patient is lying in bed in NAD. Afebrile. 11/18: decompensated overnight. now intubated, on vasopressors, on 100% fio2 APRV with paO2 72. severe ARDS likely combination of pulmonary septic emboli combined with CHF from severe TR, however also now in septic shock. 11/19: persistently hypoxic on APRV. fio2 weaned but still requiring high Phigh in order to remain oxygenated. Cr continues to rise with minimal uop (~300cc/24h ) despite bumex drip. vasopressors continue and remains in shock. 11/20 Patient is sedated with Diprivan, Fentanyl and intubated. On Levophed 8 mics and Vasopressin 0.04 mics. Afebrile. On Bumex drip. 11/21 Patient remains intubated and sedated with Diprivan and Fentanyl. Afebrile. On Bumex drip 0.5mg/hr. Renal function is improving with Cr: 3.21 from 3.81 with UOP: 9424ml in 24 hrs Off all pressors. 11/22 Patient remains sedated with Diprivan, Fentanyl and intubated. T:100.4 at 4 am. WBC is trending down. Renal function is improving with Cr: 2.59 today from 3.21 on Bumex drip 0.5mg/hr. 11/23 Patient is off Diprivan was on Feminal drip overnight however he is awake and follows simple commands. T:100.7. Off Bumex drip. Patient was given additional 2units PRBC ( 3 total) overnight Hgb 9.3 from 6.9. 11/24 No events overnight. Tolerated CPAP for several hrs yesterday now sedated with Diprivan and Fentanyl drips. s/p LP yesterday clear CSF normal protein and glc.. Renal function continue to improve with Cr: 1.29 today from 1.69. Tmax 101.3 11/25: TMax 99.8. Patient has been extubated alert and oriented, conversant appropriately. No acute events overnight. Patient is maintaining O2 saturation via nasal cannula 5 L/m Sodium level improving, renal function also improving. Objective Vital Signs Date Time Temp Pulse Resp B/P (MAP) Pulse Ox O2 Delivery O2 Flow Rate FiO2 11/25/16 07:43 92 Nasal Cannula 5.00 11/25/16 06:00 90 35 143/77 (99) 11/25/16 04:00 99.8 11/24/16 09:42 45 Intake and Output 11/25/16 11/25/16 11/26/16 08:00 16:00 00:00 Intake Total 1300 ml Output Total 775 ml Balance 525 ml Result Diagram: 11/25/16 0321 11/25/16 0321 Other Results Microbiology Date/Time Source Procedure Growth Status 11/22/16 18:00 Stool Stool Stool Occult Blood (MAHOGANY) - Final HEMOCCULT NEGATIVE Complete Laboratory Tests Test 11/24/16 11:34 Blood Gas Puncture Site RT RADIAL Blood Gas Patient Temperature 98.6 Blood Gas HCO3 25 mmol/L (22-26) Blood Gas Base Excess 1.4 mmol/L (-2-2) Blood Gas Oxygen Saturation 97 % (90-100) Arterial Blood pH 7.49 (7.380-7.420) Arterial Blood Partial Pressure CO2 33 mmHg (38-42) Arterial Blood Partial Pressure O2 145 mmHg (61-120) Arterial Blood Oxygen Content 14.1 Vol % (12.0-20.0) Arterial Blood Carboxyhemoglobin 1.2 % (0-4) Arterial Blood Methemoglobin 1.0 % (0-2) Blood Gas Hemoglobin 10.2 G/DL (12.0-16.0) Oxygen Delivery Device VENTILATOR Blood Gas Ventilator Setting [id number]/PS10 Blood Gas Inspired Oxygen 45 % Imaging Last Impressions Chest X-Ray 11/25/16 0600 Signed Impressions: Service Date/Time: Friday, November 25, 2016 02:53 - CONCLUSION: 1. Stable patchy airspace disease and slight interstitial prominence consistent with atypical infection or edema pattern. 2. Stable small right pleural effusion. 1. Checo Leon MD Lumbar Puncture Fluoroscopy 11/21/16 0000 Signed Impressions: Service Date/Time: Wednesday, November 23, 2016 15:08 - CONCLUSION: Uncomplicated fluoroscopically guided lumbar puncture with pressures as above. Horace Kirkland MD Thoracic Spine MRI 11/20/16 0000 Signed Impressions: Service Date/Time: Sunday, November 20, 2016 21:36 - CONCLUSION: 1. No focal abnormality within the thoracic spine. 2. There is edema/inflammatory change seen in the soft tissues to the left of the C7 and T1 spinous processes better seen on the cervical spine MRI examination. 3. Cavitary lesions in the lungs. Manolo Anne MD Lumbar Spine MRI 11/20/16 0000 Signed Impressions: Service Date/Time: Sunday, November 20, 2016 21:36 - CONCLUSION: 1. No areas of significant stenosis. The disc spaces are preserved. 2. Mild facet hypertrophy at the L3-L4 and L4-L5 old. 3. Nonspecific areas of edema within the soft tissues adjacent to the spinous processes throughout the lumbar spine. This can be seen secondary to some dependent edema. Inflammatory change cannot be excluded. It does appear fairly symmetric when comparing right to left. 4. Ascites. Manolo Anne MD Chest CT 11/20/16 Signed Impressions: Service Date/Time: Sunday, November 20, 2016 11:30 - CONCLUSION: Deterioration in the appearance of the chest with increasing size of nodules and consolidation. Worsening of an inflammatory process is suspected. Michael Youssef MD FACR Cervical Spine MRI 11/20/16 Signed Impressions: Service Date/Time: Sunday, November 20, 2016 21:36 - CONCLUSION: 1. 2.4 cm vague area of edema seen to the left of the spinous processes of C7 and T1 concerning for focal inflammatory/infectious change. The spinous processes themselves demonstrate normal signal. 2. Suspected hemangioma at the C7 vertebral body. 3. Fluid in the nasopharynx, oropharynx and hypopharynx. There is an NG tube and ET tube in place. Manolo Anne MD Brain MRI 11/20/16 Signed Impressions: Service Date/Time: Sunday, November 20, 2016 21:36 - CONCLUSION: 1. Abnormal gyriform signal abnormality in the left frontal and parietal regions associated with some minimally increased signal on the diffusion weighted images. Findings are nonspecific. Differential diagnosis includes an area of meningitis or leptomeningeal spread of tumor given history of malignancy. Infarction less likely. No associated mass effect. Recommend further evaluation with MRI brain with contrast to assess for abnormal meningeal enhancement. Bruno Cleaning MD Abdomen/Pelvis CT 11/20/16 Signed Impressions: Service Date/Time: Sunday, November 20, 2016 11:30 - CONCLUSION: Significant aeration appearance of the lungs. Generalized anasarca, negative for abscess. Adults abdominal abscess. Michael Youssef MD FACR Renal Ultrasound 11/15/16 0000 Signed Impressions: Service Date/Time: Tuesday, November 15, 2016 10:26 - CONCLUSION: Normal examination. Katie Nevarez MD Last Impressions Chest X-Ray 11/22/16 Signed Impressions: Service Date/Time: Tuesday, November 22, 2016 11:08 - CONCLUSION: No significant change has occurred. Yung Browning MD Thoracic Spine MRI 11/20/16 Signed Impressions: Service Date/Time: Sunday, November 20, 2016 21:36 - CONCLUSION: 1. No focal abnormality within the thoracic spine. 2. There is edema/inflammatory change seen in the soft tissues to the left of the C7 and T1 spinous processes better seen on the cervical spine MRI examination. 3. Cavitary lesions in the lungs. Manolo Anne MD Lumbar Spine MRI 11/20/16 Signed Impressions: Service Date/Time: Sunday, November 20, 2016 21:36 - CONCLUSION: 1. No areas of significant stenosis. The disc spaces are preserved. 2. Mild facet hypertrophy at the L3-L4 and L4-L5 old. 3. Nonspecific areas of edema within the soft tissues adjacent to the spinous processes throughout the lumbar spine. This can be seen secondary to some dependent edema. Inflammatory change cannot be excluded. It does appear fairly symmetric when comparing right to left. 4. Ascites. Manolo Anne MD Chest CT 11/20/16 Signed Impressions: Service Date/Time: Sunday, November 20, 2016 11:30 - CONCLUSION: Deterioration in the appearance of the chest with increasing size of nodules and consolidation. Worsening of an inflammatory process is suspected. Michael Youssef MD FACR Cervical Spine MRI 11/20/16 Signed Impressions: Service Date/Time: Sunday, November 20, 2016 21:36 - CONCLUSION: 1. 2.4 cm vague area of edema seen to the left of the spinous processes of C7 and T1 concerning for focal inflammatory/infectious change. The spinous processes themselves demonstrate normal signal. 2. Suspected hemangioma at the C7 vertebral body. 3. Fluid in the nasopharynx, oropharynx and hypopharynx. There is an NG tube and ET tube in place. Manolo Anne MD Brain MRI 11/20/16 Signed Impressions: Service Date/Time: Sunday, November 20, 2016 21:36 - CONCLUSION: 1. Abnormal gyriform signal abnormality in the left frontal and parietal regions associated with some minimally increased signal on the diffusion weighted images. Findings are nonspecific. Differential diagnosis includes an area of meningitis or leptomeningeal spread of tumor given history of malignancy. Infarction less likely. No associated mass effect. Recommend further evaluation with MRI brain with contrast to assess for abnormal meningeal enhancement. Bruno Cleaning MD Abdomen/Pelvis CT 11/20/16 Signed Impressions: Service Date/Time: Sunday, November 20, 2016 11:30 - CONCLUSION: Significant aeration appearance of the lungs. Generalized anasarca, negative for abscess. Adults abdominal abscess. Michael Youssef MD FACR Renal Ultrasound 11/15/16 0000 Signed Impressions: Service Date/Time: Tuesday, November 15, 2016 10:26 - CONCLUSION: Normal examination. Katie Nevarez MD Objective Remarks GENERAL: Well-developed well-nourished male sitting semi-recumbent in bed on nasal cannula in no acute distress SKIN: Warm and dry. HEAD: Normocephalic. EYES: No scleral icterus. No injection or drainage. NECK: Supple, trachea midline. No JVD or lymphadenopathy. CARDIOVASCULAR: Regular rate , normal rhythm . No murmurs, gallops, or rubs. RESPIRATORY: Breath sounds equal bilaterally. No accessory muscle use. Nasal cannula 5 L/m GASTROINTESTINAL: Abdomen soft, non-tender, nondistended. MUSCULOSKELETAL: No cyanosis, or edema. Neuro: GCS 15. Movement of extremities 4. 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 continues to be critically ill, ongoing shock and renal failure. Recently extubated 11/24. Pending evaluation cerebritis versus meningeal carcinomatosis. Prognosis guarded Plan Neuro: Metabolic encephalopathy-resolved - GCS 15 -UDS: Opiates, Cocaine 11/23 s/p LP showed clear CSF, normal protein and glc, 10 WBC. Follow up on CSF cx and Cytology. 11/20: MRI brain: Abnormal gyriform signal abnormality in the left frontal and parietal regions associated with some minimally increased signal on the diffusion weighted images.ddx meningitis or leptomeningeal spread of tumor given history of malignancy. Neuro is following 11/20: Cervical CT: 2.4 cm vague area of edema seen to the left of the spinous processes of C7 and T1 concerning for focal inflammatory/infectious change. The spinous processes themselves demonstrate normal signal.. Suspected hemangioma at the C7 vertebral body 11/21 EEG: Encephalopathy, no epileptiform features. Pulm: Acute hypoxic and hypercarbic respiratory failure Septic pulmonary emboli Pulmonary Edema Severe ARDS - intubated 11/18 for worsening hypoxemia. Extubated 11/24 - Continue with vent support keep sat >92%. On PRVC RR 16, TV 550, IT;1.0, PEEP:5, FIO2 45% -Bronchodilators every 4 hours when necessary -CXR 11/25: Improving, small right bilateral pleural effusion -repeat CT chest 11/20: increasing size of nodules and consolidation. - 11/15 CT chest showed cavitary and irregular nodules throughout the lungs bilaterally. CV: Septic Shock Congestive Heart Failure Exacerbation secondary to valvulopathy Severe tricuspid regurgitation Pulmonary Edema -Monitor HR and BP keep MAP>65mmHg - Echo showed EF 50-55%, +Vegetations on TV, severe TR : RACHEL Intravascular volume overload Hypernatremia..improving - Monitor renal function, I/O's, avoid nephrotoxins, place on electrolytes replacement protocol. Will need K replacement today. -Monitor sodium level, encourage free water intake Renal function improving with Cr: 0.9 today from 04.19 - Renal US 11/15: Unremarkable. Renal signed off 11/24- Dr. Gillis FEN/GI: Acute protein calorie malnutrition- moderate Anion-gap metabolic acidosis Intravascular volume overload Colon cancer on radiation treatment Hepatitis C Speech evaluation- Mechanical soft with thin liquids Protonix 40mg IV daily for GI prophylaxis ID: MRSA Tricuspid Valve infective endocarditis s/p Septic Shock - ID on board - Continue abx per ID ( On daptomycin, Rifampin, Teflaro, Acyclovir) monitor CK' s. -s/p LP 11/23: Clear CSF, 10 WBC, normal protein and glc. Follow up on CSF cx and Cytology - Echo showed vegetations on TV. - 11/15, 11/16, 09/17 BC: MRSA, 11/18 BC: MRSA - 11/15 Urine cx: MRSA, 11/18 sputum: MRSA -BC 11/20,11/21,11/22, 11/23: NGTD Heme: Anemia secondary to chronic illness Thrombocytopenia secondary to hepatic dysfunction - Monitor CBC - Patient s/p transfusion 3 units PRBC total on 11/22, stool Hemoccult negative -Continue to monitor LFTs Endo: Hyperglycemia of critical illness - SSI with Accu-Cheks for glycemic control. GI prophylaxis with Protonix 40 milligrams daily and DVT prophylaxis with SCDs. Not on chemical anticoagulation prophylaxis due to thrombocytopenia. Lines: Right subclavian CVP placed 11/18- 11/24, peripheral IV's. Level 2 Physician Allegra Atkins MD Nov 25, 2016 10:01
--- NOTE | 2016-11-25 11:10 | HHI.IDPN ---
Subjective Subjective Remarks is a 45 y/o CM with history of Rectal Cancer (Invasive moderately differentiated Adenocarcinoma with no prior lung or distant mets), and has no port or PICC line and has been receiving oral chemotherapy. Patient is followed by Dr. Vielka Harrell. Patient also sees colorectal surgeon and has undergone colonoscopy but no definite surgery. Patient also has been seeing Dr. Santana radiation oncologist and has been undergoing radiation therapy. Reportedly, the patient's last radiation therapy was on Wednesday before admission. Admitted with sepsis. Intubated. BC with MRSA. Sputum with MRSA, TTE with TV vegetatuin and severe TR. CTA with findings of pulmonary septic emboli. MRI cervical abnormal finidngs of inflammatory changes to the left of C7-T1 Infectious disease was consulted for the management of sepsis, pneumonia in an immune compromised patient. Notes reviewed Extubated and following commands. Low grade temps 99.8 F All BC with MRSA, up to 11/18 Creatinine elevated but decreasing, has good UO No rash No diarrhea CL DCed yday Ricketts DCed yday Antibiotics Dapto IV Teflaro IV Rifampin Lines Line sites with no e.o infection. Past Medical History reviewed. Allergies: Coded Allergies: No Known Allergies (Unverified , 11/15/16) Objective . Vital Signs Date Time Temp Pulse Resp B/P (MAP) Pulse Ox O2 Delivery O2 Flow Rate FiO2 11/25/16 07:43 92 Nasal Cannula 5.00 11/25/16 06:00 90 35 143/77 (99) 92 11/25/16 06:00 90 11/25/16 05:00 93 24 128/75 (92) 91 11/25/16 04:00 99.8 85 27 131/76 (94) 91 11/25/16 04:00 85 11/25/16 03:00 79 28 126/74 (91) 93 11/25/16 02:00 80 35 128/77 (94) 92 11/25/16 02:00 80 11/25/16 01:00 83 21 138/77 (97) 94 11/25/16 00:00 99.0 87 25 133/80 (97) 93 11/25/16 00:00 87 11/24/16 23:00 77 16 126/77 (93) 93 11/24/16 22:00 77 11/24/16 22:00 77 30 121/75 (90) 94 11/24/16 21:00 84 14 137/86 (103) 93 11/24/16 20:00 98.7 81 26 130/75 (93) 93 11/24/16 20:00 81 11/24/16 19:37 94 Nasal Cannula 5.00 11/24/16 19:00 95 21 138/73 (94) 93 11/24/16 16:00 79 18 122/78 (93) 93 11/24/16 12:00 93 14 133/87 (102) 93 11/24/16 11:59 93 Nasal Cannula 5 . Laboratory Tests Test 11/24/16 04:30 11/25/16 03:21 White Blood Count 7.6 TH/MM3 8.8 TH/MM3 Red Blood Count 3.36 MIL/MM3 3.48 MIL/MM3 Hemoglobin 9.0 GM/DL 9.1 GM/DL Hematocrit 27.0 % 27.8 % Mean Corpuscular Volume 80.4 FL 80.0 FL Mean Corpuscular Hemoglobin 26.6 PG 26.2 PG Mean Corpuscular Hemoglobin Concent 33.1 % 32.8 % Red Cell Distribution Width 15.8 % 16.0 % Platelet Count 98 TH/MM3 101 TH/MM3 Mean Platelet Volume 7.9 FL 8.2 FL Neutrophils (%) (Auto) 88.9 % 92.4 % Lymphocytes (%) (Auto) 6.2 % 3.5 % Monocytes (%) (Auto) 3.6 % 3.4 % Eosinophils (%) (Auto) 1.1 % 0.5 % Basophils (%) (Auto) 0.2 % 0.2 % Neutrophils # (Auto) 6.7 TH/MM3 8.2 TH/MM3 Lymphocytes # (Auto) 0.5 TH/MM3 0.3 TH/MM3 Monocytes # (Auto) 0.3 TH/MM3 0.3 TH/MM3 Eosinophils # (Auto) 0.1 TH/MM3 0.0 TH/MM3 Basophils # (Auto) 0.0 TH/MM3 0.0 TH/MM3 CBC Comment AUTO DIFF AUTO DIFF Differential Total Cells Counted 100 100 Neutrophils % (Manual) 69 % 93 % Band Neutrophils % 22 % 2 % Lymphocytes % 3 % 4 % Monocytes % 3 % Eosinophils % 2 % Neutrophils # (Manual) 7.0 TH/MM3 8.4 TH/MM3 Myelocytes 1 % Differential Comment FINAL DIFF MANUAL FINAL DIFF MANUAL Platelet Estimate LOW LOW Platelet Morphology Comment NORMAL NORMAL Promyelocytes 1 % Nucleated Red Blood Cells 1 /100 WBC Red Cell Morphology Comment NORMAL Laboratory Tests Test 11/24/16 04:30 11/24/16 17:55 11/25/16 03:21 Blood Urea Nitrogen 42 MG/DL 30 MG/DL Creatinine 1.29 MG/DL 0.93 MG/DL Random Glucose 125 MG/DL 90 MG/DL Total Protein 6.7 GM/DL 6.4 GM/DL Albumin 1.4 GM/DL 1.4 GM/DL Calcium Level 7.3 MG/DL 7.1 MG/DL Phosphorus Level 2.6 MG/DL Magnesium Level 2.5 MG/DL Alkaline Phosphatase 215 U/L 176 U/L Aspartate Amino Transf (AST/SGOT) 45 U/L 37 U/L Alanine Aminotransferase (ALT/SGPT) 37 U/L 33 U/L Total Bilirubin 1.0 MG/DL 1.3 MG/DL Direct Bilirubin 0.8 MG/DL 0.9 MG/DL Sodium Level 151 MEQ/L 148 MEQ/L Potassium Level 3.0 MEQ/L 3.5 MEQ/L 3.3 MEQ/L Chloride Level 118 MEQ/L 117 MEQ/L Carbon Dioxide Level 28.6 MEQ/L 24.0 MEQ/L Anion Gap 4 MEQ/L 7 MEQ/L Estimat Glomerular Filtration Rate 61 ML/MIN 89 ML/MIN Protein Corrected Calcium 7.5 MG/DL 7.5 MG/DL Indirect Bilirubin 0.2 MG/DL 0.4 MG/DL Total Creatine Kinase 325 U/L Creatine Kinase MB 0.6 NG/ML Creatine Kinase MB % 0.2 % Microbiology Date/Time Source Procedure Growth Status 11/23/16 20:42 Blood Peripheral Aerobic Blood Culture - Preliminary NO GROWTH IN 1 DAY Resulted 11/23/16 20:42 Blood Peripheral Anaerobic Blood Culture - Preliminary NO GROWTH IN 1 DAY Resulted 11/23/16 17:30 Blood Line Aerobic Blood Culture - Preliminary NO GROWTH IN 1 DAY Resulted 11/23/16 17:30 Blood Line Anaerobic Blood Culture - Preliminary NO GROWTH IN 1 DAY Resulted 11/23/16 15:18 Cerebral Spinal Fluid Lumbar Puncture Acid Fast Stain - Final NO ACID FAST BACILLI SEEN Resulted 11/23/16 15:18 Cerebral Spinal Fluid Lumbar Puncture Mycobacterial Culture Pending Resulted 11/23/16 15:18 Cerebral Spinal Fluid Lumbar Puncture Gram Stain - Final Resulted 11/23/16 15:18 Cerebral Spinal Fluid Lumbar Puncture CSF Culture - Preliminary NO GROWTH IN 48 HOURS. Resulted 11/22/16 18:00 Stool Stool Stool Occult Blood (MAHOGANY) - Final HEMOCCULT NEGATIVE Complete Imaging Last Impressions Chest X-Ray 11/17/16 0000 Signed Impressions: Service Date/Time: Thursday, November 17, 2016 11:07 - CONCLUSION: Development of diffuse pulmonary infiltrates with consolidation additionally in the left lower lobe. Chencho Chaparro MD Renal Ultrasound 11/15/16 0000 Signed Impressions: Service Date/Time: Tuesday, November 15, 2016 10:26 - CONCLUSION: Normal examination. Katie Nevarez MD Chest CT 11/15/16 0000 Signed Impressions: Service Date/Time: Tuesday, November 15, 2016 09:10 - CONCLUSION: Multiple new solid and cavitary irregular nodules seen throughout the lungs bilaterally. These may represent foci of metastatic disease, however, given that these are new as compared to the prior exam of July 2016 concern is for possible septic emboli given the cavitary lesions. Small right-sided pleural effusion also favors possible infectious source. Katie Nevarez MD Physical Exam GENERAL: Opens eyes spontaneously, on the vent, looks comfortable SKIN: No rashes, ecchymoses or lesions. Cool and dry. HEAD: Atraumatic. Normocephalic. No temporal or scalp tenderness. EYES: Pupils equal round and reactive. Extraocular motions intact. No scleral icterus. No injection or drainage. ENT: Intubated. Nose without bleeding, purulent drainage or septal hematoma. NECK: Trachea midline. Supple, nontender, no meningeal signs. CARDIOVASCULAR: Tachycardic, no rub RESPIRATORY: Decreased AE in bases. GASTROINTESTINAL: Abdomen soft, non-tender, nondistended. MUSCULOSKELETAL: Extremities without clubbing, cyanosis, or edema. NEUROLOGICAL: Sedated Psych could not be assessed. IV line sites with no evidence of infection. Assessment & Plan Remarks Septic Shock with MODS (fever, tachy, low BP, bandemia, source: lung, endocarditis) MRSA bacteremia, TV endocarditis with severe TR. Possible CL infection new vs ongoing seeding due to line being placed in middle of bacteremia. Abnormal MRI brain, ?septic emboli likely meningitis (partially treated at this point) Lung lesions: septic emboli most likely. Other differentials include cancer related mets. Very less likely to be fungal or TB. Acute renal failure: prerenal, sepsis. Acute metabolic encephalopathy: sepsis, less likely to be meningitis. Hyponatremia: Infection, metabolic, meningitis Hepatitis C positive. Recommendations: Continue Daptomycin IV (Re: Worsening clinically, resp distress, back pain, neck pain ? further dissemination). Does not cover Pneumonia. DC Rifampin oral Continue Teflaro IV (MRSA bacteremia, Cannot use Nephrotoxins plus Vanco MAHOGANY 2 and clinically failing) If overnight any change in clinical condition start Micafungin IV. At risk for fungemia. CSF studies from LP today not suggestive of bacterial infection but MRI concerning for possible cerebritis. Follow cultures Follow clinically. CL removal y. Cdiff sent by [facility]. fevers defervesced likely line as ongoing source of infection , WBC normal. Diarrhea present. Follow repeat blood cultures from line and periphery. Lucille Lizama MD Nov 25, 2016 11:10
[2016-11-25] MEDS: DAPTOMYCIN IV SCH (12:00)
[2016-11-25] MEDS: SODIUM CHLORIDE 0.9% IV SCH (12:00)
--- NOTE | 2016-11-25 13:09 | HHI.NPPN ---
Subjective Renal Failure: Acute Interval History He has been extubated. Is awake, tolerating po fluids. Renal function is better. (Tess Alas) Objective Data Data Vital Signs Date Time Temp Pulse Resp B/P (MAP) Pulse Ox O2 Delivery O2 Flow Rate FiO2 11/25/16 07:43 92 Nasal Cannula 5.00 11/25/16 06:00 90 35 143/77 (99) 92 11/25/16 06:00 90 11/25/16 05:00 93 24 128/75 (92) 91 11/25/16 04:00 99.8 85 27 131/76 (94) 91 11/25/16 04:00 85 11/25/16 03:00 79 28 126/74 (91) 93 11/25/16 02:00 80 35 128/77 (94) 92 11/25/16 02:00 80 11/25/16 01:00 83 21 138/77 (97) 94 11/25/16 00:00 99.0 87 25 133/80 (97) 93 11/25/16 00:00 87 11/24/16 23:00 77 16 126/77 (93) 93 11/24/16 22:00 77 11/24/16 22:00 77 30 121/75 (90) 94 11/24/16 21:00 84 14 137/86 (103) 93 11/24/16 20:00 98.7 81 26 130/75 (93) 93 11/24/16 20:00 81 11/24/16 19:37 94 Nasal Cannula 5.00 11/24/16 19:00 95 21 138/73 (94) 93 11/24/16 16:00 79 18 122/78 (93) 93 (Tess Alas) -: 11/25/16 0321 11/25/16 0321 Imaging Last 72 hours Impressions Chest X-Ray 11/25/16 0600 Signed Impressions: Service Date/Time: Friday, November 25, 2016 02:53 - CONCLUSION: 1. Stable patchy airspace disease and slight interstitial prominence consistent with atypical infection or edema pattern. 2. Stable small right pleural effusion. 1. Checo Leon MD Chest X-Ray 11/24/16 0000 Signed Impressions: Service Date/Time: Thursday, November 24, 2016 07:41 - CONCLUSION: 1. Patchy alveolar disease characteristic of edema or pneumonia. The findings are improved when compared with the prior exam. Horace Kirkland MD Tubes & Lines: Ricketts (Bishop,Tess B. TANK WAGON OPERATOR) Physical Exam General Appearance: Well Developed, No Acute Distress, Comfortable, Malnourished (Bishop,Tess B. TANK WAGON OPERATOR) Eyes Eye Exam: Pupils Equal (Bishop,Tess B. TANK WAGON OPERATOR) Throat Throat Exam: Oral Mucosa [place] & Moist (Bishop,Tess B. TANK WAGON OPERATOR) Neck Neck Exam: Neck Supple (Bishop,Tess B. TANK WAGON OPERATOR) Pulmonary Resp Exam: Clear Bilaterally, Breath Sounds Equal, No Distress, Decreased Bases (Bishop,Tess B. TANK WAGON OPERATOR) Cardiology CV Exam: Regular, Normal Sinus Rhythm, Good Perfusion (Bishop,Tess B. TANK WAGON OPERATOR) Gastrointestinal/Abdomen GI Exam: Soft, Non-Tender, Bowel Sounds Present, Non-Distended (Bishop,Tess B. TANK WAGON OPERATOR) Musculoskeletal MS Exam: Joints Intact, Normal Tone (Bishop,Tess B. TANK WAGON OPERATOR) Integumentary Skin Exam: Warm, Dry, Intact (Bishop,Tess B. T[employer] WAGON OPERATOR) Extremeties Extremities Exam: No Edema, Pedal Pulses Palpable (Bishop,Tess B. TANK WAGON OPERATOR) Neurologic Neuro Exam: Alert, Awake, Oriented, Speech Clear, Moving All Extremities (Bishop,Tess B. T[employer] WAG[employer] OPERATOR) Assessment/Plan Discussed Condition With: Patient Assessment Summary: RACHEL/Acute Renal Failure Problem List: (1) Acute renal failure ICD Codes: N17.9 - Acute kidney failure, unspecified Plan: RACHEL due to sepsis, hypotension. Renal function has improved. He is non oliguric.Ricketts was removed Potassium is being replaced. tolerating oral fluids, sodium should improve Continue supportive care. Avoid nephrotoxins. IV Acyclovir IV was stopped. (2) Hypokalemia ICD Codes: E87.6 - Hypokalemia Plan: replacement ordered. (3) Hyperosmolality and hypernatremia ICD Codes: E87.0 - Hyperosmolality and hypernatremia Plan: Continue oral water intake (4) Severe sepsis ICD Codes: A41.9 - Sepsis, unspecified organism; R65.20 - Severe sepsis without septic shock Status: Acute Plan: with MRSA bacteremia ID following + TV endocarditis, septic emboli He is currently on Daptomycin. Rifampin, Ceftaroline, were stopped (5) Rectal cancer ICD Codes: C20 - Malignant neoplasm of rectum Status: Acute Plan: has had radiation the week prior to admission patient was seen by his oncologist. Plan we will sign off at this time. Please call us if needed (Tess Alas) Plan patient was seen and examined. Renal function has improved. Patient was advised to drink plenty of fluids. I will sign off at this time. (Leonidas Gillis MD) Tess Alas Nov 25, 2016 13:09 Leonidas Gillis MD Nov 25, 2016 22:18
--- NOTE | 2016-11-25 13:26 | PD.ONC.PN ---
Subjective Subjective Remarks Tmax 99.8 overnight. Patient extubated yesterday. Resting comfortably in room. Objective Data Date Time Temp Pulse Resp B/P (MAP) Pulse Ox O2 Delivery O2 Flow Rate FiO2 11/25/16 07:43 92 Nasal Cannula 5.00 11/25/16 06:00 90 35 143/77 (99) 92 11/25/16 06:00 90 11/25/16 05:00 93 24 128/75 (92) 91 11/25/16 04:00 99.8 85 27 131/76 (94) 91 11/25/16 04:00 85 11/25/16 03:00 79 28 126/74 (91) 93 11/25/16 02:00 80 35 128/77 (94) 92 11/25/16 02:00 80 11/25/16 01:00 83 21 138/77 (97) 94 11/25/16 00:00 99.0 87 25 133/80 (97) 93 11/25/16 00:00 87 11/24/16 23:00 77 16 126/77 (93) 93 11/24/16 22:00 77 11/24/16 22:00 77 30 121/75 (90) 94 11/24/16 21:00 84 14 137/86 (103) 93 11/24/16 20:00 98.7 81 26 130/75 (93) 93 11/24/16 20:00 81 11/24/16 19:37 94 Nasal Cannula 5.00 11/24/16 19:00 95 21 138/73 (94) 93 11/24/16 16:00 79 18 122/78 (93) 93 11/25/16 11/25/16 11/25/16 07:00 15:00 23:00 Intake Total 1300 ml Output Total 775 ml Balance 525 ml Result Diagram: 11/25/16 0321 11/25/16 0321 Laboratory Results Laboratory Tests Test 11/24/16 17:55 11/25/16 03:21 Potassium Level 3.5 MEQ/L 3.3 MEQ/L White Blood Count 8.8 TH/MM3 Red Blood Count 3.48 MIL/MM3 Hemoglobin 9.1 GM/DL Hematocrit 27.8 % Mean Corpuscular Volume 80.0 FL Mean Corpuscular Hemoglobin 26.2 PG Mean Corpuscular Hemoglobin Concent 32.8 % Red Cell Distribution Width 16.0 % Platelet Count 101 TH/MM3 Mean Platelet Volume 8.2 FL Neutrophils (%) (Auto) 92.4 % Lymphocytes (%) (Auto) 3.5 % Monocytes (%) (Auto) 3.4 % Eosinophils (%) (Auto) 0.5 % Basophils (%) (Auto) 0.2 % Neutrophils # (Auto) 8.2 TH/MM3 Lymphocytes # (Auto) 0.3 TH/MM3 Monocytes # (Auto) 0.3 TH/MM3 Eosinophils # (Auto) 0.0 TH/MM3 Basophils # (Auto) 0.0 TH/MM3 CBC Comment AUTO DIFF Differential Total Cells Counted 100 Neutrophils % (Manual) 93 % Band Neutrophils % 2 % Lymphocytes % 4 % Neutrophils # (Manual) 8.4 TH/MM3 Promyelocytes 1 % Nucleated Red Blood Cells 1 /100 WBC Differential Comment FINAL DIFF MANUAL Platelet Estimate LOW Platelet Morphology Comment NORMAL Red Cell Morphology Comment NORMAL Blood Urea Nitrogen 30 MG/DL Creatinine 0.93 MG/DL Random Glucose 90 MG/DL Total Protein 6.4 GM/DL Albumin 1.4 GM/DL Calcium Level 7.1 MG/DL Alkaline Phosphatase 176 U/L Aspartate Amino Transf (AST/SGOT) 37 U/L Alanine Aminotransferase (ALT/SGPT) 33 U/L Total Bilirubin 1.3 MG/DL Direct Bilirubin 0.9 MG/DL Sodium Level 148 MEQ/L Chloride Level 117 MEQ/L Carbon Dioxide Level 24.0 MEQ/L Anion Gap 7 MEQ/L Estimat Glomerular Filtration Rate 89 ML/MIN Protein Corrected Calcium 7.5 MG/DL Indirect Bilirubin 0.4 MG/DL Culture Results Microbiology Date/Time Source Procedure Growth Status 11/23/16 20:42 Blood Peripheral Aerobic Blood Culture - Preliminary NO GROWTH IN 2 DAYS Resulted 11/23/16 20:42 Blood Peripheral Anaerobic Blood Culture - Preliminary NO GROWTH IN 2 DAYS Resulted 11/23/16 17:30 Blood Line Aerobic Blood Culture - Preliminary NO GROWTH IN 2 DAYS Resulted 11/23/16 17:30 Blood Line Anaerobic Blood Culture - Preliminary NO GROWTH IN 2 DAYS Resulted 11/23/16 15:18 Cerebral Spinal Fluid Lumbar Puncture Acid Fast Stain - Final NO ACID FAST BACILLI SEEN Resulted 11/23/16 15:18 Cerebral Spinal Fluid Lumbar Puncture Mycobacterial Culture Pending Resulted 11/23/16 15:18 Cerebral Spinal Fluid Lumbar Puncture Gram Stain - Final Resulted 11/23/16 15:18 Cerebral Spinal Fluid Lumbar Puncture CSF Culture - Preliminary NO GROWTH IN 48 HOURS. Resulted 11/22/16 18:00 Stool Stool Stool Occult Blood (MAHOGANY) - Final HEMOCCULT NEGATIVE Complete Imaging Studies Last 24 hours Impressions Chest X-Ray 11/25/16 0600 Signed Impressions: Service Date/Time: Friday, November 25, 2016 02:53 - CONCLUSION: 1. Stable patchy airspace disease and slight interstitial prominence consistent with atypical infection or edema pattern. 2. Stable small right pleural effusion. 1. Checo Leon MD Administered Medications Medications (Trade) Dose Ordered Sig/Osvaldo Route PRN Reason Start Time Stop Time Status Last Admin Dose Admin Pantoprazole Sodium (Protonix Inj) 40 mg DAILY IV 11/15/16 10:00 11/24/16 09:09 Chlorhexidine Gluconate (Chlorhexidine 2% Cloth) Taper DAILY@04 TOP 11/16/16 04:00 11/12/17 03:59 11/25/16 01:14 Insulin Human Regular (NovoLIN R SUPPLEMENTAL SCALE) 1 Q6H SQ 11/15/16 11:00 11/21/16 22:24 Ondansetron HCl (Zofran Inj) 4 mg Q8H PRN IV PUSH NAUSEA OR VOMITING 11/15/16 13:15 11/24/16 13:07 Daptomycin 590 mg/ Sodium Chloride 100 ml @ 200 mls/hr Q24H IV 11/17/16 12:00 11/24/16 14:18 Ceftaroline Fosamil 400 mg/ Sodium Chloride 100 ml @ 100 mls/hr Q8H IV 11/21/16 11:00 11/25/16 01:14 Acetaminophen (Tylenol) 650 mg Q6H PRN PO fever 11/22/16 11:45 11/23/16 12:09 Potassium Chloride 100 ml @ 50 mls/hr Q2H PRN IV For Potassium 2.8 - 3.2 mEq/L 11/24/16 07:30 11/24/16 12:17 Potassium Chloride 100 ml @ 50 mls/hr Q2H PRN IV For Potassium 3.3 - 3.5 mEq/L 11/24/16 07:30 11/25/16 03:59 Albuterol/ Ipratropium (Duoneb Neb) 1 ampule Q4HR NEB NEB 11/24/16 12:00 11/25/16 12:38 Zolpidem Tartrate (Ambien) 10 mg HS PRN PO insomnia 11/25/16 02:45 11/25/16 02:54 Objective Remarks GENERAL: chronically ill appearing male supine in bed in nad SKIN: Warm and dry. HEAD: Normocephalic. EYES: No injection or drainage. NECK: Supple, trachea midline. CARDIOVASCULAR: +S1/S2 RESPIRATORY: anterior thomas with occasional rhonchi. on 5L O2 via NC GASTROINTESTINAL: Abdomen soft, non-tender, nondistended. EXTREMITIES: No cyanosis NEUROLOGICAL: awake and alert, normal speech. Assessment/Plan Problem List: (1) Rectal cancer ICD Codes: C20 - Malignant neoplasm of rectum Status: Acute Plan: Completed XRT in his time, unlikely with Xeloda. Lost to follow up since August. States he had alot of personal problem he could not complete his therapy as scheduled. Treatment less than ideal which is concerning as the efficacy of treatment and cure is greatly diminished. Reports Dr. Galvan happy with his response but sounds like he was residual disease evident. He will need definitive surgery after infection resolved. No nodules present at time of dx, nodules appear with clinical picture of bacterial endocarditis. 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 ID following. 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 Course complicated by MRSA bacteremia from IVDA. Plan 1. cytology remains pending 2. supportive care 3. antibiotics per ID Attending Statement The exam, history, and the medical decision-making described in the above note were completed with the assistance of the mid-level provider. I reviewed and agree with the findings presented. I attest that I had a [id number] encounter with the patient on the same day, and personally performed and documented my assessment and findings in the medical record. PT seen and examined, mother at bedside with a young girl. Appt for oncology follow up was today. Discussed MRI finding, clinically doing well, moves all 4 extremities, no headaches, no confusion. 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 leptomeningeal disease, not typical pattern of spread specially after just completing local therapy. Discussed with ID attribute findings to infection. Sherrill Caba Nov 25, 2016 13:26 Vielka Harrell MD Nov 25, 2016 19:28
[2016-11-25 15:20] LABS: C. DIFF EPI 027 PRESUMPTIVE NEGATIVE (NEGATIVE)
--- NOTE | 2016-11-25 20:37 | MB ---
cc: JOSE L BAIN DATE OF CONSULTATION 11/25/[address] Allegra Basilio REASON FOR CONSULTATION Pulmonary management. HISTORY OF THE PRESENT ILLNESS Mr. West is a 45-year-old male with history of rectosigmoid cancer. He received radiation therapy by Dr. Santana and chemotherapy with Xeloda. He has a history of pelvic pain. He was taking pain medication and he also has IV drug abuse. He said his last use was a few weeks ago. He uses Dilaudid. The patient came to the hospital with pleuritic type of chest pain. He was found to have multiple cavitary lesions in the lung. He became septic and was on ventilator, successfully extubated. 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 Currently he is on antibiotic. He is weaned down to nasal cannula. No fever or chills now. PAST MEDICAL HISTORY 1. Rectosigmoid cancer. 2. History of IV drug abuse. MEDICATIONS He is currently takin. Hydrocodone for pain. 2. Ambien 10 mg at nighttime. 3. Albuterol/Atrovent nebulizer treatment. 4. Ceftaroline 400 mg q. 8-hour. 5. Daptomycin 590 mg q. 24-hour. ALLERGIES NO KNOWN DRUG ALLERGIES. SOCIAL HISTORY He is single. He has history of IV drug abuse. History of smoking one pack a day. Drinks socially. 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 FAMILY HISTORY He has a total of four children and the patient lives with these . REVIEW OF SYSTEMS Normally he is up, around and active. No seizure, stroke or epilepsy. No DVT or pulmonary embolism. PHYSICAL EXAMINATION GENERAL: Well built, well-nourished male, mild short of breath. VITAL SIGNS: Blood pressure 142/77, heart rate 90, respirations 20. Temperature 99. HEENT: Pupils are equal and reactive to light. Oral mucosa, nasal mucosa normal. NECK: Supple. JVP not raised. CHEST: Air entry equal bilaterally. He has basilar rales. CARDIOVASCULAR: S1-S2 normal. ABDOMEN: Benign. EXTREMITIES: No edema. LABORATORY DATA His WBC count is 8.8, hemoglobin 9.1, hematocrit 27.8, MCV 80, platelet count 101. sodium 140, potassium 3.3, chloride 117, BUN 30, creatinine 0.93. His blood cultures positive for MRSA. IMPRESSION 1. MRSA pneumonia. 2. Tricuspid valve endocarditis. 3. Multiple lung lesions, likely septic emboli. 4. History of rectosigmoid cancer. 5. History of nicotine use. 6. History of IV drug abuse. PLAN Will continue antibiotics ceftaroline and daptomycin per ID recommendation. He is on supplement his oxygen. Continue aerosol treatment. Monitor his cultures. Further treatment will depend on the course in the hospital. Thank you Dr. Basilio for this consultation. MD ABIMAEL Siddiqui/DESTINY /5:01 PM /8:12 PM KOREY
[2016-11-26] VITALS (9 sets, daily range): BP systolic 122–147; BP diastolic 76–83; PULSE 82–102; RESP 20–37; TEMP 98.1–98.9; O2SAT 92–99
[2016-11-26] MEDS: RESP: ALBUTEROL 2.5 MG/IPRATROPIUM 0.5 MG NEB (SCH) NEB ×5 (03:11→19:09)
[2016-11-26] MEDS: CEFTAROLINE INJ 400 MG in SODIUM CHLORIDE 0.9% INJ 100 ML IV SCH ×2 (03:13→11:59)
[2016-11-26] MEDS: CHLORHEXIDINE GLUCONATE 2 % 1 PACK (2 CLOTHS) TOP SCH (03:13)
[2016-11-26] MEDS: INSULIN NovoLIN REGULAR SUPPLEMENTAL SCALE SQ SCH ×4 (05:00→23:00)
[2016-11-26 05:19] LABS: MEAN CELL VOLUME 80.8 FL (80.0-100.0); MEAN CORPUSCULAR HEMOGLOBIN 26.9 PG (27.0-34.0); MEAN CORPUSCULAR HGB CONC 33.3 % (32.0-36.0); PLATELET COUNT 109 TH/MM3 (150-450); RED BLOOD COUNT 3.34 MIL/MM3 (4.50-5.90); RED CELL DISTRIBUTION WIDTH 15.9 % (11.6-17.2); REVIEW FLAG FINAL; WHITE BLOOD COUNT 9.1 TH/MM3 (4.0-11.0)
[2016-11-26 05:49] LABS: INDIRECT BILIRUBIN 0.4 MG/DL (0.0-0.8); MAGNESIUM 2.2 MG/DL (1.5-2.5); POTASSIUM 3.5 MEQ/L (3.5-5.1); TOTAL BILIRUBIN ADULT 1.2 MG/DL (0.2-1.0)
[2016-11-26 06:46] LABS: CALCIUM-PROTEIN CORRECTED 7.4 MG/DL (8.5-10.1)
[2016-11-26] MEDS: PANTOPRAZOLE SODIUM 40 MG VIAL IV SCH (08:30)
--- NOTE | 2016-11-26 08:35 | HHI.PR ---
Subjective Remarks The patient is a 45-year-old male with past medical history of colon cancer on radiation treatment last session on Wednesday and has been on radiation for the past 2-3 months being followed by Dr. Harrell, his oncologist, and Dr. Galvan. He presented to [facility] emergency department with a couple of days history of shortness of breath, pleuritic chest pain with deep inspiration , dry cough and feeling nauseous. The patient denies any exposure to sick contacts. In addition, he denies any prior history of pneumonia or flu. He was found to have a temperature of 101.4 orally in the ER. In addition hewas tachycardiac with heart rate of 120s to 130s. Chest x-ray in the ER showed new bilateral mild air space opacities. The patient subsequently had CT scan of the chest which showed multiple new solid and cavitary irregular nodules seen throughout the lungs bilaterally, and small right-sided pleural effusion. His laboratory data is significant for renal failure with a creatinine level of 2.29 and hypokalemia with a potassium level of 2.8. His lactic acid level measured at 1.2. The patient also is thrombocytopenic with a platelet count of 55, however, his INR is 1.2. In the ED he was given three liters of Crystalloid in addition to cefepime, azithromycin, Tylenol and DuoNeb. When seen in the ER he was on room air oxygen with saturation 96%. However, tachycardiac with heart rate of 123 and blood pressure 154/75. He denies any vomiting, abdominal pain. 11/16 No events overnight. Patient is lying in bed in NAD. Afebrile. renal function is improving with Cr: 1.54 from 2.0. Echo from yesterday showed vegetation on TV, EF 50-55%. 11/17 Patient is lying in bed in NAD. Afebrile. 11/18: decompensated overnight. now intubated, on vasopressors, on 100% fio2 APRV with paO2 72. severe ARDS likely combination of pulmonary septic emboli combined with CHF from severe TR, however also now in septic shock. 11/19: persistently hypoxic on APRV. fio2 weaned but still requiring high Phigh in order to remain oxygenated. Cr continues to rise with minimal uop (~300cc/24h ) despite bumex drip. vasopressors continue and remains in shock. 11/20 Patient is sedated with Diprivan, Fentanyl and intubated. On Levophed 8 mics and Vasopressin 0.04 mics. Afebrile. On Bumex drip. 11/21 Patient remains intubated and sedated with Diprivan and Fentanyl. Afebrile. On Bumex drip 0.5mg/hr. Renal function is improving with Cr: 3.21 from 3.81 with UOP: 9424ml in 24 hrs Off all pressors. 11/22 Patient remains sedated with Diprivan, Fentanyl and intubated. T:100.4 at 4 am. WBC is trending down. Renal function is improving with Cr: 2.59 today from 3.21 on Bumex drip 0.5mg/hr. 11/23 Patient is off Diprivan was on Feminal drip overnight however he is awake and follows simple commands. T:100.7. Off Bumex drip. Patient was given additional 2units PRBC ( 3 total) overnight Hgb 9.3 from 6.9. 11/24 No events overnight. Tolerated CPAP for several hrs yesterday now sedated with Diprivan and Fentanyl drips. s/p LP yesterday clear CSF normal protein and glc.. Renal function continue to improve with Cr: 1.29 today from 1.69. Tmax 101.3 11/25: TMax 99.8. Patient has been extubated alert and oriented, conversant appropriately. No acute events overnight. Patient is maintaining O2 saturation via nasal cannula 5 L/m Sodium level improving, renal function also improving. 11/26 PATIENT REMAINS IN ISOLATION COMPLAINS OF DIARRHEA REMAINS AFEBRILE TRANSFER OUT OF ICU CAN MORE TO FLOOR Objective Vitals Vital Signs Date Time Temp Pulse Resp B/P (MAP) Pulse Ox O2 Delivery O2 Flow Rate FiO2 11/26/16 06:00 92 11/26/16 04:00 85 11/26/16 04:00 98.9 83 20 147/83 (104) 92 11/26/16 02:00 90 11/26/16 00:00 96 11/26/16 00:00 98.9 89 20 140/76 (97) 93 11/25/16 20:11 95 Nasal Cannula 4.00 11/25/16 20:00 98.9 84 20 136/81 (99) 93 11/25/16 20:00 90 11/25/16 18:00 89 11/25/16 16:00 82 11/25/16 16:00 99.1 82 20 136/80 (98) 92 11/25/16 14:00 101 11/25/16 12:00 84 11/25/16 12:00 99.0 84 20 139/78 (98) 92 11/25/16 10:00 98 I/O 11/25/16 11/25/16 11/25/16 11/26/16 11/26/16 11/26/16 07:00 15:00 23:00 07:00 15:00 23:00 Intake Total 1300 ml 300 ml 800 ml 1540 ml Output Total 775 ml 1500 ml 800 ml Balance 525 ml 300 ml -700 ml 740 ml Intake Oral 1200 ml 800 ml 1200 ml IV Total 100 ml 300 ml 340 ml Output Urine Total 775 ml 1000 ml 800 ml Stool Total 500 ml # Bowel Movements 5 8 8 Result Diagram: 11/26/16 0412 11/26/16 0412 Other Results Laboratory Tests Test 11/23/16 15:18 11/24/16 04:30 11/24/16 11:34 11/24/16 17:55 CSF Volume (Tube 1) 2.9 ML CSF Supernatant Color (tube 1) CLEAR CSF Gross Blood (Tube 1) TRACE CSF Volume (Tube 2) 3.0 ML CSF Supernatant Color (tube 2) CLEAR CSF Gross Blood (Tube 2) TRACE CSF Volume (Tube 3) 2.1 ML CSF Supernatant Color (tube 3) CLEAR CSF Gross Blood (Tube 3) TRACE CSF Volume (Tube 4) 2.0 ML CSF Supernatant Color (tube 4) CLEAR CSF WBC (Tube 4) 10 /MM3 CSF RBC (Tube 4) 297 /MM3 CSF Neutrophils 36 % CSF Lymphocytes 37 % CSF Monocytes 27 % CSF Glucose 77 MG/DL CSF Total Protein 22.5 MG/DL Herpes Simplex Virus I DNA (PCR) Negative Herpes Simplex Virus II DNA (PCR) Negative White Blood Count 7.6 TH/MM3 Red Blood Count 3.36 MIL/MM3 Hemoglobin 9.0 GM/DL Hematocrit 27.0 % Mean Corpuscular Volume 80.4 FL Mean Corpuscular Hemoglobin 26.6 PG Mean Corpuscular Hemoglobin Concent 33.1 % Red Cell Distribution Width 15.8 % Platelet Count 98 TH/MM3 Mean Platelet Volume 7.9 FL Neutrophils (%) (Auto) 88.9 % Lymphocytes (%) (Auto) 6.2 % Monocytes (%) (Auto) 3.6 % Eosinophils (%) (Auto) 1.1 % Basophils (%) (Auto) 0.2 % Neutrophils # (Auto) 6.7 TH/MM3 Lymphocytes # (Auto) 0.5 TH/MM3 Monocytes # (Auto) 0.3 TH/MM3 Eosinophils # (Auto) 0.1 TH/MM3 Basophils # (Auto) 0.0 TH/MM3 CBC Comment AUTO DIFF Differential Total Cells Counted 100 Neutrophils % (Manual) 69 % Band Neutrophils % 22 % Lymphocytes % 3 % Monocytes % 3 % Eosinophils % 2 % Neutrophils # (Manual) 7.0 TH/MM3 Myelocytes 1 % Differential Comment FINAL DIFF MANUAL Platelet Estimate LOW Platelet Morphology Comment NORMAL Prothrombin Time 11.6 SEC Prothromb Time International Ratio 1.0 RATIO Activated Partial Thromboplast Time 27.6 SEC Blood Urea Nitrogen 42 MG/DL Creatinine 1.29 MG/DL Random Glucose 125 MG/DL Total Protein 6.7 GM/DL Albumin 1.4 GM/DL Calcium Level 7.3 MG/DL Phosphorus Level 2.6 MG/DL Magnesium Level 2.5 MG/DL Alkaline Phosphatase 215 U/L Aspartate Amino Transf (AST/SGOT) 45 U/L Alanine Aminotransferase (ALT/SGPT) 37 U/L Total Bilirubin 1.0 MG/DL Direct Bilirubin 0.8 MG/DL Sodium Level 151 MEQ/L Potassium Level 3.0 MEQ/L 3.5 MEQ/L Chloride Level 118 MEQ/L Carbon Dioxide Level 28.6 MEQ/L Anion Gap 4 MEQ/L Estimat Glomerular Filtration Rate 61 ML/MIN Protein Corrected Calcium 7.5 MG/DL Indirect Bilirubin 0.2 MG/DL Total Creatine Kinase 325 U/L Creatine Kinase MB 0.6 NG/ML Creatine Kinase MB % 0.2 % Blood Gas Puncture Site RT RADIAL Blood Gas Patient Temperature 98.6 Blood Gas HCO3 25 mmol/L Blood Gas Base Excess 1.4 mmol/L Blood Gas Oxygen Saturation 97 % Arterial Blood pH 7.49 Arterial Blood Partial Pressure CO2 33 mmHg Arterial Blood Partial Pressure O2 145 mmHg Arterial Blood Oxygen Content 14.1 Vol % Arterial Blood Carboxyhemoglobin 1.2 % Arterial Blood Methemoglobin 1.0 % Blood Gas Hemoglobin 10.2 G/DL Oxygen Delivery Device VENTILATOR Blood Gas Ventilator Setting [id number] Blood Gas Inspired Oxygen 45 % Test 11/25/16 03:21 11/25/16 09:05 11/26/16 04:12 White Blood Count 8.8 TH/MM3 9.1 TH/MM3 Red Blood Count 3.48 MIL/MM3 3.34 MIL/MM3 Hemoglobin 9.1 GM/DL 9.0 GM/DL Hematocrit 27.8 % 27.0 % Mean Corpuscular Volume 80.0 FL 80.8 FL Mean Corpuscular Hemoglobin 26.2 PG 26.9 PG Mean Corpuscular Hemoglobin Concent 32.8 % 33.3 % Red Cell Distribution Width 16.0 % 15.9 % Platelet Count 101 TH/MM3 109 TH/MM3 Mean Platelet Volume 8.2 FL 8.4 FL Neutrophils (%) (Auto) 92.4 % Lymphocytes (%) (Auto) 3.5 % Monocytes (%) (Auto) 3.4 % Eosinophils (%) (Auto) 0.5 % Basophils (%) (Auto) 0.2 % Neutrophils # (Auto) 8.2 TH/MM3 Lymphocytes # (Auto) 0.3 TH/MM3 Monocytes # (Auto) 0.3 TH/MM3 Eosinophils # (Auto) 0.0 TH/MM3 Basophils # (Auto) 0.0 TH/MM3 CBC Comment AUTO DIFF Differential Total Cells Counted 100 Neutrophils % (Manual) 93 % Band Neutrophils % 2 % Lymphocytes % 4 % Neutrophils # (Manual) 8.4 TH/MM3 Promyelocytes 1 % Nucleated Red Blood Cells 1 /100 WBC Differential Comment FINAL DIFF MANUAL Platelet Estimate LOW Platelet Morphology Comment NORMAL Red Cell Morphology Comment NORMAL Blood Urea Nitrogen 30 MG/DL 24 MG/DL Creatinine 0.93 MG/DL 0.94 MG/DL Random Glucose 90 MG/DL 87 MG/DL Total Protein 6.4 GM/DL 6.4 GM/DL Albumin 1.4 GM/DL 1.5 GM/DL Calcium Level 7.1 MG/DL 7.0 MG/DL Alkaline Phosphatase 176 U/L 150 U/L Aspartate Amino Transf (AST/SGOT) 37 U/L 26 U/L Alanine Aminotransferase (ALT/SGPT) 33 U/L 32 U/L Total Bilirubin 1.3 MG/DL 1.2 MG/DL Direct Bilirubin 0.9 MG/DL 0.8 MG/DL Sodium Level 148 MEQ/L 144 MEQ/L Potassium Level 3.3 MEQ/L 3.5 MEQ/L Chloride Level 117 MEQ/L 117 MEQ/L Carbon Dioxide Level 24.0 MEQ/L 19.0 MEQ/L Anion Gap 7 MEQ/L 8 MEQ/L Estimat Glomerular Filtration Rate 89 ML/MIN 88 ML/MIN Protein Corrected Calcium 7.5 MG/DL 7.4 MG/DL Indirect Bilirubin 0.4 MG/DL 0.4 MG/DL Stool C. difficile Toxin (PCR) NEGATIVE Stl C. difficile Toxin Epiderm 027 PRESUMPTIVE NEGATIVE Phosphorus Level 2.1 MG/DL Magnesium Level 2.2 MG/DL Imaging Last Impressions Chest X-Ray 11/25/16 0600 Signed Impressions: Service Date/Time: Friday, November 25, 2016 02:53 - CONCLUSION: 1. Stable patchy airspace disease and slight interstitial prominence consistent with atypical infection or edema pattern. 2. Stable small right pleural effusion. 1. Checo Leon MD Lumbar Puncture Fluoroscopy 11/21/16 0000 Signed Impressions: Service Date/Time: Wednesday, November 23, 2016 15:08 - CONCLUSION: Uncomplicated fluoroscopically guided lumbar puncture with pressures as above. Horace Kirkland MD Thoracic Spine MRI 11/20/16 0000 Signed Impressions: Service Date/Time: Sunday, November 20, 2016 21:36 - CONCLUSION: 1. No focal abnormality within the thoracic spine. 2. There is edema/inflammatory change seen in the soft tissues to the left of the C7 and T1 spinous processes better seen on the cervical spine MRI examination. 3. Cavitary lesions in the lungs. Manolo nAne MD Lumbar Spine MRI 11/20/16 0000 Signed Impressions: Service Date/Time: Sunday, November 20, 2016 21:36 - CONCLUSION: 1. No areas of significant stenosis. The disc spaces are preserved. 2. Mild facet hypertrophy at the L3-L4 and L4-L5 old. 3. Nonspecific areas of edema within the soft tissues adjacent to the spinous processes throughout the lumbar spine. This can be seen secondary to some dependent edema. Inflammatory change cannot be excluded. It does appear fairly symmetric when comparing right to left. 4. Ascites. Manolo Anne MD Chest CT 11/20/16 0000 Signed Impressions: Service Date/Time: Sunday, November 20, 2016 11:30 - CONCLUSION: Deterioration in the appearance of the chest with increasing size of nodules and consolidation. Worsening of an inflammatory process is suspected. Michael Youssef MD FACR Cervical Spine MRI 11/20/16 0000 Signed Impressions: Service Date/Time: Sunday, November 20, 2016 21:36 - CONCLUSION: 1. 2.4 cm vague area of edema seen to the left of the spinous processes of C7 and T1 concerning for focal inflammatory/infectious change. The spinous processes themselves demonstrate normal signal. 2. Suspected hemangioma at the C7 vertebral body. 3. Fluid in the nasopharynx, oropharynx and hypopharynx. There is an NG tube and ET tube in place. Manolo Anne MD Brain MRI 11/20/16 Signed Impressions: Service Date/Time: Sunday, November 20, 2016 21:36 - CONCLUSION: 1. Abnormal gyriform signal abnormality in the left frontal and parietal regions associated with some minimally increased signal on the diffusion weighted images. Findings are nonspecific. Differential diagnosis includes an area of meningitis or leptomeningeal spread of tumor given history of malignancy. Infarction less likely. No associated mass effect. Recommend further evaluation with MRI brain with contrast to assess for abnormal meningeal enhancement. Bruno Cleaning MD Abdomen/Pelvis CT 11/20/16 Signed Impressions: Service Date/Time: Sunday, November 20, 2016 11:30 - CONCLUSION: Significant aeration appearance of the lungs. Generalized anasarca, negative for abscess. Adults abdominal abscess. Michael Youssef MD FACR Renal Ultrasound 11/15/16 0000 Signed Impressions: Service Date/Time: Tuesday, November 15, 2016 10:26 - CONCLUSION: Normal examination. Katie Nevarez MD Objective Remarks GENERAL: AWAKE ALERT AND ORIENTED X3 SKIN: Warm and dry.TATTOOS HEAD: Atraumatic. Normocephalic. EYES: Pupils equal and round. No scleral icterus. No injection or drainage. EOMI ENT: No nasal bleeding or discharge. Mucous membranes pink and moist. TONGUE IS MIDLINE NECK: Trachea midline. No JVD. SUPPLE CARDIOVASCULAR: Regular rate and rhythm. S1, S2 NO S3 OR S4 POSITIVE MURMUR RESPIRATORY: No accessory muscle use. COARSE BREATH SOUNDS BL. Breath sounds equal bilaterally. GASTROINTESTINAL: Abdomen soft, non-tender, nondistended. Hepatic and splenic margins not palpable. MUSCULOSKELETAL: Extremities without clubbing, cyanosis, or edema. No obvious deformities. NEUROLOGICAL: Awake and alert. No obvious cranial nerve deficits. Motor grossly within normal limits. Five out of 5 muscle strength in the arms and legs. Normal speech. PSYCHIATRIC: SLIGHTLY INAppropriate mood and affect; insight and judgment ABnormal. Procedures SP VDRF SP LP Medications and IVs Current Medications Acetaminophen (Tylenol) 650 mg ONCE ONCE PO Last administered on 11/15/16 07: 40; Start 11/15/16 at 07:30; Stop 11/15/16 at 07:31; Status DC Ondansetron HCl (Zofran Inj) 4 mg ONCE ONCE IV Last administered on 11/15/16 07:40; Start 11/15/16 at 07:30; Stop 11/15/16 at 07:31; Status DC Sodium Chloride 1,000 ml @ 1,000 mls/hr Q1H ONCE IV Last administered on 07:40; Start 11/15/16 at 07:24; Stop 11/15/16 at 08:23; Status DC Sodium Chloride 1,000 ml @ 1,000 mls/hr Q1H ONCE IV Last administered on 07:40; Start 11/15/16 at 07:24; Stop 11/15/16 at 08:23; Status DC Sodium Chloride 100 ml @ 1,000 mls/hr Q6M ONCE IV Last administered on 07:40; Start 11/15/16 at 07:24; Stop 11/15/16 at 07:29; Status DC Cefepime HCl 2000 mg/Sodium Chloride 100 ml @ 200 mls/hr ONCE ONCE IV Last administered on 11/15/16 08:53; Start 11/15/16 at 07:45; Stop 11/15/16 at 08:14 ; Status DC Azithromycin 500 mg/Sodium Chloride 250 ml @ 250 mls/hr ONCE ONCE IV Last administered on 11/15/16 07:48; Start 11/15/16 at 07:45; Stop 11/15/16 at 08:44 ; Status DC Albuterol/ Ipratropium (Duoneb Neb) 2 ampule ONCE ONCE NEB Last administered on 11/15/16 07:58; Start 11/15/16 at 08:00; Stop 11/15/16 at 08:01; Status DC Potassium Chloride (KCl) 20 meq ONCE ONCE PO ; Start 11/15/16 at 08:30; Stop at 08:31; Status DC Potassium Chloride 100 ml @ 50 mls/hr Q2H IV Last administered on 11/15/16 17 :03; Start 11/15/16 at 08:30; Stop 11/15/16 at 12:29; Status DC Morphine Sulfate (Morphine Inj) 2 mg ONCE ONCE IV PUSH Last administered on 08:53; Start 11/15/16 at 08:45; Stop 11/15/16 at 08:46; Status DC Pantoprazole Sodium (Protonix Inj) 40 mg DAILY IV Last administered on 09:00; Start 11/15/16 at 10:00 Albuterol/ Ipratropium (Duoneb Neb) 1 ampule Q6HR NEB INH Last administered on 11/19/16 03:16; Start 11/15/16 at 10:00; Stop 11/19/16 at 07:58; Status DC Ipratropium Athena (Atrovent Neb) 0.5 mg Q2HR NEB PRN INH WHEEZING Last administered on 11/18/16 01:12; Start 11/15/16 at 09:00; Stop 11/24/16 at 14:44 ; Status DC Miscellaneous Information 1 [id number] ; Start 11/15/16 at 09:00 Chlorhexidine Gluconate (Chlorhexidine 2% Cloth) Taper DAILY@04 TOP Last administered on 11/26/16 03:13; Start 11/16/16 at 04:00; Stop 11/12/17 at 03:59 Chlorhexidine Gluconate (Chlorhexidine 2% Cloth) 3 pack UNSCH PRN TOP HYGIENIC CARE; Start 11/15/16 at 09:00 Senna/Docusate Sodium (Marina-Colace) 1 tab BID PO Last administered on 11/22/16 21:52; Start 11/15/16 at 11:00; Stop 11/23/16 at 11:41; Status DC Magnesium Hydroxide (Milk Of Magnesia Liq) 30 ml Q12H PRN PO MILD - MODERATE CONSTIPATION; Start 11/15/16 at 09:00 Sennosides (Senokot) 17.2 mg Q12H PRN PO MODERATE - SEVERE CONSTIPATION; Start 11/15/16 at 09:00 Bisacodyl (Dulcolax Supp) 10 mg DAILY PRN RECTAL SEVERE CONSITIPATION; Start at 09:00 Lactulose (Lactulose Liq) 30 ml DAILY PRN PO SEVERE CONSITIPATION; Start at 09:00 Dextrose (D50w (Vial) Inj) 50 ml UNSCH PRN IV HYPOGLYCEMIA-SEE COMMENTS; Start 11/15/16 at 09:45 Glucagon (Glucagon Inj) 1 mg UNSCH PRN OTHER HYPOGLYCEMIA-SEE COMMENTS; Start 11/15/16 at 09:45 Insulin Human Regular (NovoLIN R SUPPLEMENTAL SCALE) 1 Q6H SQ Last administered on 11/21/16 22:24; Start 11/15/16 at 11:00 Sodium Chloride 1,000 ml @ 75 mls/hr [id number] IV Last administered on 11:37; Start 11/15/16 at 09:45; Stop 11/17/16 at 10:14; Status DC Vancomycin HCl 1000 mg/Sodium Chloride 250 ml @ 250 mls/hr ONCE ONCE IV Last administered on 11/15/16 10:27; Start 11/15/16 at 10:00; Stop 11/15/16 at 10:59 ; Status DC Piperacillin Sod/ Tazobactam Sod 50 ml @ 100 mls/hr Q6H IV Last administered on 11/16/16 11:37; Start 11/15/16 at 12:00; Stop 11/16/16 at 13:33; Status DC Azithromycin 500 mg/Sodium Chloride 250 ml @ 250 mls/hr Q24H IV ; Start at 08:00; Stop 11/16/16 at 08:00; Status DC Pharmacy Profile Note 0 ml @ 0 mls/hr UNSCH OTHER ; Start 11/15/16 at 10:00; Stop 11/17/16 at 11:03; Status DC Sodium Chloride 1,000 ml @ 999 mls/hr BOLUS ONCE IV Last administered on 11/15 15:16; Start 11/15/16 at 13:00; Stop 11/15/16 at 14:00; Status DC Oxycodone/ Acetaminophen (Percocet 5-325 Mg) 1 tab Q6H PRN PO pain; Start at 12:15; Stop 11/15/16 at 13:02; Status DC Hydromorphone HCl (Dilaudid Pf Inj) 1 mg Q3H PRN IV PUSH PAIN 1 TO 10 AND/OR AGITATION Last administered on 11/18/16 00:54; Start 11/15/16 at 13:00; Stop at 05:48; Status DC Oxycodone/ Acetaminophen (Percocet 5-325 Mg) 1 tab Q4H PRN PO PAIN 1-10 Last administered on 11/18/16 00:54; Start 11/15/16 at 13:00; Stop 11/18/16 at 05:48 ; Status DC Ondansetron HCl (Zofran Inj) 4 mg Q8H PRN IV PUSH NAUSEA OR VOMITING Last administered on 11/24/16 13:07; Start 11/15/16 at 13:15 Diltiazem HCl (Cardizem) 60 mg Q6HR PO Last administered on 11/17/16 23:39; Start 11/16/16 at 08:15; Stop 11/18/16 at 05:48; Status DC Vancomycin HCl 1250 mg/Sodium Chloride 262.5 ml @ 262.5 mls/ hr Q18H IV Last administered on 11/17/16 08:01; Start 11/16/16 at 14:00; Stop 11/17/16 at 11:03 ; Status DC Miscellaneous Information SPECIFIC LAB TO BE CONSTANTINO... ONCE ONCE .XX ; Start 11/18 at 19:45; Stop 11/18/16 at 19:46; Status Cancel Piperacillin Sod/ Tazobactam Sod 50 ml @ 100 mls/hr Q8H IV Last administered on 11/17/16 05:06; Start 11/16/16 at 20:00; Stop 11/17/16 at 07:33; Status DC Potassium Chloride 100 ml @ 50 mls/hr Q2H PRN IV For Potassium 2.8 - 3.2 mEq/L ; Start 11/17/16 at 10:15; Stop 11/18/16 at 06:12; Status DC Potassium Chloride 100 ml @ 50 mls/hr Q2H PRN IV For Potassium 2.8 - 3.2 mEq/ L Last administered on 11/17/16t 15:13; Start 11/17/16 at 10:15; Stop 11/18/16 at 06:12; Status DC Potassium Bicarb/ Potassium Chloride (K-Lyte Cl Eff) 50 meq UNSCH PRN PO For Potassium 3.3 - 3.5 mEq/L; Start 11/17/16 at 10:15; Stop 11/18/16 at 06:12; Status DC Potassium Chloride 100 ml @ 25 mls/hr UNSCH PRN IV For Potassium 3.3 - 3.5 mEq /L; Start 11/17/16 at 10:15; Stop 11/18/16 at 06:12; Status DC Potassium Chloride 100 ml @ 50 mls/hr Q2H PRN IV For Potassium 3.3 - 3.5 mEq/ L Last administered on 11/17/16t 17:30; Start 11/17/16 at 10:15; Stop 11/18/16 at 06:12; Status DC Magnesium Sulfate 4 gm/Sodium Chloride 100 ml @ 50 mls/hr UNSCH PRN IV For Magnesium 0.9 - 1.1 mg/dL; Start 11/17/16 at 10:15; Stop 11/18/16 at 06:12; Status DC Magnesium Oxide (Mag-Ox) 800 mg UNSCH PRN PO For Magnesium 1.2 - 1.6 mg/dL; Start 11/17/16 at 10:15; Stop 11/18/16 at 06:12; Status DC Magnesium Sulfate 2 gm/Sodium Chloride 100 ml @ 50 mls/hr UNSCH PRN IV For Magnesium 1.2 - 1.6 mg/dL; Start 11/17/16 at 10:15; Stop 11/18/16 at 06:12; Status DC Potassium Phosphate (K-Phos) 2,000 mg Q4H PRN PO For Phosphorus < 2.5 mg/dL; Start 11/17/16 at 10:15; Stop 11/18/16 at 06:12; Status DC Sodium Phosphate 30 mmol/Sodium Chloride 250 ml @ 42 mls/hr UNSCH PRN IV For Phosphorus < 2.5 mg/dL; Start 11/17/16 at 10:15; Stop 11/18/16 at 06:12; Status DC Potassium Phosphate (K-Phos) 2,000 mg UNSCH PRN PO/TUBE SEE LABEL COMMENTS; Start 11/17/16 at 10:15; Stop 11/18/16 at 06:12; Status DC Potassium Phosphate 30 mmol/ Sodium Chloride 260 ml @ 42 mls/hr UNSCH PRN IV SEE LABEL COMMENTS; Start 11/17/16 at 10:15; Stop 11/18/16 at 06:12; Status DC Bumetanide (Bumex Inj) 1 mg ONCE ONCE IV PUSH Last administered on 11/17/16 11:13; Start 11/17/16 at 10:15; Stop 11/18/16 at 01:32; Status DC Daptomycin 590 mg/ Sodium Chloride 100 ml @ 200 mls/hr Q24H IV Last administered on 11/25/16 12:00; Start 11/17/16 at 12:00 Rifampin (Rifampin) 150 mg Q12HR PO Last administered on 11/24/16 21:03; Start 11/17/16 at 21:00; Stop 11/25/16 at 11:11; Status DC Bumetanide (Bumex Inj) 1 mg ONCE ONCE IV PUSH ; Start 11/18/16 at 01:30; Stop 11/18/16 at 01:32; Status DC Methylprednisolone Sodium Succinate (SoluMEDROL INJ) 80 mg ONCE ONCE IM Last administered on 11/18/16 04:17; Start 11/18/16 at 01:30; Stop 11/18/16 at 01:31 ; Status DC Etomidate (Amidate Inj) 20 mg ONCE ONCE IV PUSH Last administered on 01:54; Start 11/18/16 at 01:30; Stop 11/18/16 at 01:31; Status DC Succinylcholine Chloride (Quelicin Inj) 100 mg ONCE ONCE IV PUSH Last administered on 11/18/16 01:54; Start 11/18/16 at 01:30; Stop 11/18/16 at 01:32 ; Status DC Propofol 100 ml @ 2.193 mls/ hr Q24H PRN IV SEDATION Last administered on 12:10; Start 11/18/16 at 01:27; Stop 11/19/16 at 16:48; Status DC Fentanyl Citrate 250 ml @ 5 mls/hr Q24H PRN IV SEDATION Last administered on 8/ 30/17at 21:16; Start 11/18/16 at 01:27; Stop 11/19/16 at 16:41; Status DC Midazolam HCl 100 ml @ 2 mls/hr Q24H PRN IV SEDATION Last administered on 01:55; Start 11/18/16 at 01:27; Stop 11/23/16 at 11:41; Status DC Etomidate (Amidate Inj) 20 mg STK-MED ONCE .ROUTE ; Start 11/18/16 at 01:30; Stop 11/18/16 at 01:31; Status DC Propofol 100 ml @ As Directed STK-MED ONCE .ROUTE ; Start 11/18/16 at 01:32; Stop 11/18/16 at 01:33; Status DC Potassium Chloride 100 ml @ 50 mls/hr Q2H PRN IV For Potassium 2.8 - 3.2 mEq/L ; Start 11/18/16 at 02:15; Stop 11/18/16 at 06:12; Status DC Potassium Chloride 100 ml @ 50 mls/hr Q2H PRN IV For Potassium 2.8 - 3.2 mEq/L ; Start 11/18/16 at 02:15; Stop 11/18/16 at 06:12; Status DC Potassium Bicarb/ Potassium Chloride (K-Lyte Cl Eff) 50 meq UNSCH PRN PO For Potassium 3.3 - 3.5 mEq/L; Start 11/18/16 at 02:15; Stop 11/18/16 at 06:12; Status DC Potassium Chloride 100 ml @ 25 mls/hr UNSCH PRN IV For Potassium 3.3 - 3.5 mEq /L; Start 11/18/16 at 02:15; Stop 11/18/16 at 06:12; Status DC Potassium Chloride 100 ml @ 50 mls/hr Q2H PRN IV For Potassium 3.3 - 3.5 mEq/L ; Start 11/18/16 at 02:15; Stop 11/18/16 at 06:12; Status DC Magnesium Sulfate 4 gm/Sodium Chloride 100 ml @ 50 mls/hr UNSCH PRN IV For Magnesium 0.9 - 1.1 mg/dL; Start 11/18/16 at 02:15; Stop 11/18/16 at 06:12; Status DC Magnesium Oxide (Mag-Ox) 800 mg UNSCH PRN PO For Magnesium 1.2 - 1.6 mg/dL; Start 11/18/16 at 02:15; Stop 11/18/16 at 06:12; Status DC Magnesium Sulfate 2 gm/Sodium Chloride 100 ml @ 50 mls/hr UNSCH PRN IV For Magnesium 1.2 - 1.6 mg/dL; Start 11/18/16 at 02:15; Stop 11/18/16 at 06:12; Status DC Potassium Phosphate (K-Phos) 2,000 mg Q4H PRN PO For Phosphorus < 2.5 mg/dL; Start 11/18/16 at 02:15; Stop 11/18/16 at 06:12; Status DC Sodium Phosphate 30 mmol/Sodium Chloride 250 ml @ 42 mls/hr UNSCH PRN IV For Phosphorus < 2.5 mg/dL; Start 11/18/16 at 02:15; Stop 11/18/16 at 06:12; Status DC Potassium Phosphate (K-Phos) 2,000 mg UNSCH PRN PO/TUBE SEE LABEL COMMENTS; Start 11/18/16 at 02:15; Stop 11/18/16 at 06:12; Status DC Potassium Phosphate 30 mmol/ Sodium Chloride 260 ml @ 42 mls/hr UNSCH PRN IV SEE LABEL COMMENTS; Start 11/18/16 at 02:15; Stop 11/18/16 at 06:12; Status DC Sodium Bicarbonate 150 meq/Dextrose 1,150 ml @ 75 mls/hr [id number] IV Last administered on 11/18/16 04:17; Start 11/18/16 at 03:45; Stop 11/18/16 at 05:48 ; Status DC Sodium Chloride 1,000 ml @ 999 mls/hr BOLUS ONCE IV Last administered on 11/18 04:18; Start 11/18/16 at 03:45; Stop 11/18/16 at 04:45; Status DC Norepinephrine Bitartrate 4 mg/ Sodium Chloride 250 ml @ 7.5 mls/hr TITRATE PRN IV Blood pressure management Last administered on 11/18/16 01:55; Start at 03:45; Stop 11/18/16 at 07:51; Status DC Terbutaline Sulfate (Brethine Inj) 1 mg UNSCH PRN SQ For Extravasation; Start 11/18/16 at 03:45 Sodium Chloride 1,000 ml @ 100 mls/hr Q10H IV Last administered on 11/18/16 04:31; Start 11/18/16 at 04:30; Stop 11/18/16 at 05:48; Status DC Norepinephrine Bitartrate 4 mg/ Sodium Chloride 250 ml @ 7.5 mls/hr TITRATE PRN IV Blood pressure management; Start 11/18/16 at 05:30; Stop 11/18/16 at 06: 30; Status DC Vasopressin 40 units/Dextrose 100 ml @ 6 mls/hr [id number] IV ; Start 11/18/16 at 05:25; Stop 11/18/16 at 06:14; Status DC Bumetanide (Bumex Inj) 1 mg Q6H IV PUSH Last administered on 11/18/16 17:18; Start 11/18/16 at 06:00; Stop 11/20/16 at 08:02; Status DC Magnesium Oxide (Mag-Ox) 800 mg UNSCH PRN PO For Magnesium 1.2 - 1.6 mg/dL; Start 11/18/16 at 06:00; Stop 11/19/16 at 14:59; Status DC Magnesium Sulfate 4 gm/Sodium Chloride 100 ml @ 50 mls/hr UNSCH PRN IV For Magnesium 0.9 - 1.1 mg/dL; Start 11/18/16 at 06:00; Stop 11/19/16 at 14:59; Status DC Magnesium Sulfate 2 gm/Sodium Chloride 100 ml @ 50 mls/hr UNSCH PRN IV For Magnesium 1.2 - 1.6 mg/dL; Start 11/18/16 at 06:00; Stop 11/19/16 at 14:59; Status DC Potassium Chloride 100 ml @ 50 mls/hr Q2H PRN IV For Potassium 2.8 - 3.2 mEq/L ; Start 11/18/16 at 06:00; Stop 11/19/16 at 14:59; Status DC Potassium Chloride 100 ml @ 50 mls/hr Q2H PRN IV For Potassium 3.3 - 3.5 mEq/L ; Start 11/18/16 at 06:00; Stop 11/19/16 at 14:59; Status DC Potassium Chloride 100 ml @ 50 mls/hr Q2H PRN IV For Potassium 2.8 - 3.2 mEq/L ; Start 11/18/16 at 06:00; Stop 11/19/16 at 14:59; Status DC Potassium Chloride 100 ml @ 25 mls/hr UNSCH PRN IV For Potassium 3.3 - 3.5 mEq /L; Start 11/18/16 at 06:00; Stop 11/19/16 at 14:59; Status DC Potassium Phosphate (K-Phos) 2,000 mg Q4H PRN PO For Phosphorus < 2.5 mg/dL; Start 11/18/16 at 06:00; Stop 11/19/16 at 14:59; Status DC Potassium Phosphate (K-Phos) 2,000 mg UNSCH PRN PO/TUBE SEE LABEL COMMENTS; Start 11/18/16 at 06:00; Stop 11/19/16 at 14:59; Status DC Potassium Phosphate 30 mmol/ Sodium Chloride 260 ml @ 42 mls/hr UNSCH PRN IV SEE LABEL COMMENTS; Start 11/18/16 at 06:00; Stop 11/19/16 at 14:59; Status DC Sodium Phosphate 30 mmol/Sodium Chloride 250 ml @ 42 mls/hr UNSCH PRN IV For Phosphorus < 2.5 mg/dL; Start 11/18/16 at 06:00; Stop 11/19/16 at 14:59; Status DC Vasopressin 40 units/Dextrose 100 ml @ 1.5 mls/hr Q24H IV Last administered on 11/20/16 08:47; Start 11/18/16 at 05:54; Stop 11/23/16 at 11:41; Status DC Norepinephrine Bitartrate 16 mg/ Sodium Chloride 250 ml @ 7.5 mls/hr TITRATE PRN IV Blood pressure management; Start 11/18/16 at 06:45; Status Cancel Norepinephrine Bitartrate 16 mg/ Sodium Chloride 250 ml @ 1.87 mls/hr TITRATE PRN IV Maintain MAP > 65 mmHg Last administered on 11/19/16 07:52; Start at 06:45; Stop 11/25/16 at 09:52; Status DC Piperacillin Sod/ Tazobactam Sod 100 ml @ 200 mls/hr Q8H IV Last administered on 11/21/16 08:50; Start 11/18/16 at 08:00; Stop 11/21/16 at 10:28; Status DC Ceftaroline Fosamil 600 mg/ Sodium Chloride 100 ml @ 100 mls/hr Q8H IV Last administered on 11/19/16 09:02; Start 11/18/16 at 09:00; Stop 11/19/16 at 11:03 ; Status DC Bumetanide (Bumex Inj) 1 mg ONCE ONCE IV PUSH Last administered on 11/18/16 10:06; Start 11/18/16 at 10:00; Stop 11/18/16 at 10:01; Status DC Sodium Chloride 1,000 ml @ 100 mls/hr Q10H IV Last administered on 11/18/16 08:00; Start 11/18/16 at 10:00; Stop 11/18/16 at 19:31; Status DC Bumetanide 100 ml @ 4 mls/hr Q24H IV ; Start 11/18/16 at 18:13; Status Cancel Bumetanide 100 ml @ 4 mls/hr Q24H IV Last administered on 11/19/16 23:17; Start 11/18/16 at 19:00; Stop 11/20/16 at 17:02; Status DC Albuterol/ Ipratropium (Duoneb Neb) 1 ampule Q6HR NEB INH Last administered on 11/23/16 08:16; Start 11/19/16 at 10:00; Stop 11/23/16 at 09:59; Status DC Chlorothiazide Sodium (Diuril Inj) 500 mg ONCE ONCE IV Last administered on 10:03; Start 11/19/16 at 09:15; Stop 11/19/16 at 09:16; Status DC Acetazolamide Sodium (Diamox Inj) 500 mg ONCE ONCE IV PUSH Last administered on 11/19/16 10:03; Start 11/19/16 at 09:15; Stop 11/19/16 at 09:16; Status DC Spironolactone (Aldactone) 25 mg ONCE ONCE PO Last administered on 11/19/16 10:03; Start 11/19/16 at 09:00; Stop 11/19/16 at 09:02; Status DC Ceftaroline Fosamil 400 mg/ Sodium Chloride 100 ml @ 100 mls/hr Q8H IV Last administered on 11/21/16 00:51; Start 11/19/16 at 17:00; Stop 11/21/16 at 10:53; Status DC Fentanyl Citrate 250 ml @ 5 mls/hr TITRATE PRN IV Sedation Last administered on 11/24/16 06:41; Start 11/19/16 at 17:00; Stop 11/24/16 at 11:53; Status DC Propofol 100 ml @ 2.427 mls/ hr TITRATE PRN IV SEDATION Last administered on 08:50; Start 11/19/16 at 17:00; Stop 11/21/16 at 12:09; Status DC Chlorothiazide Sodium (Diuril Inj) 500 mg ONCE ONCE IV ; Start 11/20/16 at 06:30 ; Stop 11/20/16 at 08:23; Status DC Albumin Human (Albumin 25% Inj) 25 gm ONCE ONCE IV ; Start 11/20/16 at 06:30; Stop 11/20/16 at 06:31; Status DC Sodium Bicarbonate (Sodium Bicarbonate 8.4% Inj) 100 meq ONCE ONCE IV PUSH Last administered on 11/20/16 09:46; Start 11/20/16 at 09:45; Stop 11/20/16 at 09: 46; Status DC Bumetanide 100 ml @ 2 mls/hr Q24H IV Last administered on 11/20/16 18:00; Start 11/20/16 at 18:00; Stop 11/22/16 at 07:24; Status DC Ceftaroline Fosamil 400 mg/ Sodium Chloride 100 ml @ 100 mls/hr Q8H IV Last administered on 11/26/16 03:13; Start 11/21/16 at 11:00 Propofol 100 ml @ 2.19 mls/hr TITRATE PRN IV SEDATION Last administered on 11/24 04:33; Start 11/21/16 at 12:15; Stop 11/24/16 at 11:53; Status DC Acyclovir Sodium 730 mg/Sodium Chloride 150 ml @ 150 mls/hr Q8H IV Last administered on 11/24/16 04:50; Start 11/21/16 at 14:00; Stop 11/24/16 at 11:32; Status DC Midazolam HCl (Versed Inj) 2 mg ONCE ONCE IV PUSH Last administered on 16:39; Start 11/21/16 at 16:30; Stop 11/21/16 at 16:31; Status DC Water (Free Water) 300 ml Q6HR G-TUBE Last administered on 11/23/16 00:00; Start 11/22/16 at 07:30; Stop 11/23/16 at 07:23; Status DC Potassium Chloride 100 ml @ 25 mls/hr BOLUS ONCE IV Last administered on 08:16; Start 11/22/16 at 08:00; Stop 11/22/16 at 11:59; Status DC Acetaminophen (Tylenol) 650 mg Q6H PRN PO fever Last administered on 11/23/16 12:09; Start 11/22/16 at 11:45 Potassium Chloride 100 ml @ 50 mls/hr BOLUS ONCE IV Last administered on 14:40; Start 11/22/16 at 15:00; Stop 11/22/16 at 16:59; Status DC Potassium Chloride 100 ml @ 25 mls/hr Q4H IV Last administered on 11/23/16 01: 36; Start 11/22/16 at 23:15; Stop 11/23/16 at 07:14; Status DC Sodium Chloride 250 ml @ 15 mls/hr ONCE ONCE IV ; Start 11/22/16 at 23:15; Stop 11/23/16 at 15:54; Status DC Water (Free Water) 300 ml Q4HR G-TUBE Last administered on 11/24/16 03:51; Start 11/23/16 at 08:00; Stop 11/25/16 at 09:52; Status DC Dextrose 1,000 ml @ 84 mls/hr [id number] IV Last administered on 11/24/16 06:42; Start 11/23/16 at 08:00; Stop 11/24/16 at 11:53; Status DC Albuterol/ Ipratropium (Duoneb Neb) 1 ampule Q6HR NEB NEB Last administered on 11/24/16 08:09; Start 11/23/16 at 12:00; Stop 11/24/16 at 14:44; Status DC Potassium Chloride 100 ml @ 50 mls/hr Q2H PRN IV For Potassium 2.8 - 3.2 mEq/ L Last administered on 11/24/16 12:17; Start 11/24/16 at 07:30 Potassium Chloride 100 ml @ 50 mls/hr Q2H PRN IV For Potassium 2.8 - 3.2 mEq/L ; Start 11/24/16 at 07:30 Potassium Bicarb/ Potassium Chloride (K-Lyte Cl Eff) 50 meq UNSCH PRN PO For Potassium 3.3 - 3.5 mEq/L; Start 11/24/16 at 07:30 Potassium Chloride 100 ml @ 25 mls/hr UNSCH PRN IV For Potassium 3.3 - 3.5 mEq /L; Start 11/24/16 at 07:30 Potassium Chloride 100 ml @ 50 mls/hr Q2H PRN IV For Potassium 3.3 - 3.5 mEq/ L Last administered on 11/25/16 07:00; Start 11/24/16 at 07:30 Magnesium Sulfate 4 gm/Sodium Chloride 100 ml @ 50 mls/hr UNSCH PRN IV For Magnesium 0.9 - 1.1 mg/dL; Start 11/24/16 at 07:30 Magnesium Oxide (Mag-Ox) 800 mg UNSCH PRN PO For Magnesium 1.2 - 1.6 mg/dL; Start 11/24/16 at 07:30 Magnesium Sulfate 2 gm/Sodium Chloride 100 ml @ 50 mls/hr UNSCH PRN IV For Magnesium 1.2 - 1.6 mg/dL; Start 11/24/16 at 07:30 Potassium Phosphate (K-Phos) 2,000 mg Q4H PRN PO For Phosphorus < 2.5 mg/dL; Start 11/24/16 at 07:30 Sodium Phosphate 30 mmol/Sodium Chloride 250 ml @ 42 mls/hr UNSCH PRN IV For Phosphorus < 2.5 mg/dL; Start 11/24/16 at 07:30 Potassium Phosphate (K-Phos) 2,000 mg UNSCH PRN PO/TUBE SEE LABEL COMMENTS; Start 11/24/16 at 07:30 Potassium Phosphate 30 mmol/ Sodium Chloride 260 ml @ 42 mls/hr UNSCH PRN IV SEE LABEL COMMENTS; Start 11/24/16 at 07:30 Albuterol/ Ipratropium (Duoneb Neb) 1 ampule Q4HR NEB NEB Last administered on 11/25/16 20:11; Start 11/24/16 at 12:00 Albuterol/ Ipratropium (Duoneb Neb) 1 ampule Q2HR NEB PRN NEB SHORTNESS OF BREATH; Start 11/24/16 at 12:00 Acetaminophen/ Hydrocodone Bitart ([place] 10-325 Mg) 1 tab Q4H PRN PO PAIN SCALE 4 TO 10; Start 11/25/16 at 02:45 Zolpidem Tartrate (Ambien) 10 mg HS PRN PO insomnia Last administered on t 22:59; Start 11/25/16 at 02:45 A/P Assessment and Plan Assessment and Plan Assessment: 45yM with 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 continues to be critically ill, ongoing shock and renal failure. Recently extubated 11/24. Pending evaluation cerebritis versus meningeal carcinomatosis. Prognosis guarded NO LONGER IN SHOCK Plan Neuro: Metabolic encephalopathy-resolved - GCS 15 -UDS: Opiates, Cocaine 11/23 s/p LP showed clear CSF, normal protein and glc, 10 WBC. Follow up on CSF cx and Cytology. 11/20: MRI brain: Abnormal gyriform signal abnormality in the left frontal and parietal regions associated with some minimally increased signal on the diffusion weighted images.ddx meningitis or leptomeningeal spread of tumor given history of malignancy. Neuro is following 11/20: Cervical CT: 2.4 cm vague area of edema seen to the left of the spinous processes of C7 and T1 concerning for focal inflammatory/infectious change. The spinous processes themselves demonstrate normal signal.. Suspected hemangioma at the C7 vertebral body 11/21 EEG: Encephalopathy, no epileptiform features. Pulm: Acute hypoxic and hypercarbic respiratory failure Septic pulmonary emboli Pulmonary Edema Severe ARDS - intubated 11/18 for worsening hypoxemia. Extubated 11/24 - Continue with vent support keep sat >92%. On PRVC RR 16, TV 550, IT;1.0, PEEP:5, FIO2 45% -Bronchodilators every 4 hours when necessary -CXR 11/25: Improving, small right bilateral pleural effusion -repeat CT chest 11/20: increasing size of nodules and consolidation. - 11/15 CT chest showed cavitary and irregular nodules throughout the lungs bilaterally. CV: Septic Shock Congestive Heart Failure Exacerbation secondary to valvulopathy Severe tricuspid regurgitation Pulmonary Edema -Monitor HR and BP keep MAP>65mmHg - Echo showed EF 50-55%, +Vegetations on TV, severe TR : RACHEL Intravascular volume overload Hypernatremia..improving - Monitor renal function, I/O's, avoid nephrotoxins, place on electrolytes replacement protocol. Will need K replacement today. -Monitor sodium level, encourage free water intake Renal function improving with Cr: 0.9 today from 1.29 - Renal US 11/15: Unremarkable. Renal signed off 11/24- Dr. Gillis FEN/GI: Acute protein calorie malnutrition- moderate Anion-gap metabolic acidosis Intravascular volume overload Colon cancer on radiation treatment Hepatitis C THROMBOCYTOPENIA CHRONIC Speech evaluation- Mechanical soft with thin liquids Protonix 40mg IV daily for GI prophylaxis ID: MRSA Tricuspid Valve infective endocarditis s/p Septic Shock - ID on board - Continue abx per ID ( On daptomycin, Rifampin, Teflaro) monitor CK's. -s/p LP 11/23: Clear CSF, 10 WBC, normal protein and glc. Follow up on CSF cx and Cytology - Echo showed vegetations on TV. - 11/15, 11/16, 09/17 BC: MRSA, 11/18 BC: MRSA - 11/15 Urine cx: MRSA, 11/18 sputum: MRSA -BC 11/20,11/21,11/22, 11/23: NGTD Heme: Anemia secondary to chronic illness Thrombocytopenia secondary to hepatic dysfunction THROMBOCYTOPENIA - Monitor CBC - Patient s/p transfusion 3 units PRBC total on 11/22, stool Hemoccult negative -Continue to monitor LFTs Endo: Hyperglycemia of critical illness - SSI with Accu-Cheks for glycemic control. GI prophylaxis with Protonix 40 milligrams daily and DVT prophylaxis with SCDs. Not on chemical anticoagulation prophylaxis due to thrombocytopenia. Lines: Right subclavian CVP placed 11/18- 11/24, peripheral IV's. AM LABS TRANSFER OUT OF ICU PT AND OT CASE MANAGEMENT FOR DC PLANNING Michael Hayden DO Nov 26, 2016 08:35
[2016-11-26] MEDS: guaiFENesin E.R. 600 MG TAB PO SCH ×2 (09:36→23:12)
[2016-11-26] MEDS ORDERED: CALCIUM CHLORIDE INJ 1 GM in SODIUM CHLORIDE 0.9% INJ 90 ML IV ONE (10:45)
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
[2016-11-26] MEDS: DAPTOMYCIN IV SCH (14:57)
[2016-11-26] MEDS: SODIUM CHLORIDE 0.9% IV SCH (14:57)
[2016-11-26] MEDS: CALCIUM CARBONATE 1.25 GM (CA 500 MG) TAB PO SCH ×2 (14:57→23:13)
[2016-11-26 16:01] LABS: CSF CRYPTOCOCCUS AG CONF ND (NOT DETECTD)
--- NOTE | 2016-11-26 16:47 | HHI.PR ---
Subjective Remarks 45 YOWM with TV Endocarditis,Lung cavities likly septic emboli has diarrhoea No Fever no Abd pain Mother at BS Objective Vital Signs Vital Signs Date Time Temp Pulse Resp B/P (MAP) Pulse Ox O2 Delivery O2 Flow Rate FiO2 11/26/16 15:52 93 Nasal Cannula 4.00 11/26/16 12:20 98.1 92 22 139/82 (101) 93 11/26/16 08:00 82 11/26/16 08:00 98.8 82 37 133/77 (95) 94 11/26/16 06:00 92 11/26/16 04:00 85 11/26/16 04:00 98.9 83 20 147/83 (104) 92 11/26/16 02:00 90 11/26/16 00:00 96 11/26/16 00:00 98.9 89 20 140/76 (97) 93 11/25/16 20:11 95 Nasal Cannula 4.00 11/25/16 20:00 98.9 84 20 136/81 (99) 93 11/25/16 20:00 90 11/25/16 18:00 89 I/O 11/25/16 11/25/16 11/25/16 11/26/16 11/26/16 11/26/16 06:59 14:59 22:59 06:59 14:59 22:59 Intake Total 1300 ml 300 ml 800 ml 1540 ml 200 ml Output Total 775 ml 1500 ml 800 ml 250 ml Balance 525 ml 300 ml -700 ml 740 ml -250 ml 200 ml Intake Oral 1200 ml 800 ml 1200 ml IV Total 100 ml 300 ml 340 ml 200 ml Output Urine Total 775 ml 1000 ml 800 ml 250 ml Stool Total 500 ml # Bowel Movements 5 8 8 3 Result Diagram: 11/26/1641111/26/16411 Objective Remarks GENERAL: MBMN WM, NAD SKIN: Warm and dry. HEAD: Normocephalic. EYES: No scleral icterus. No injection or drainage. NECK: Supple, trachea midline. No JVD or lymphadenopathy. CARDIOVASCULAR: Regular rate and rhythm without murmurs, gallops, or rubs. RESPIRATORY: Breath sounds equal bilaterally. No accessory muscle use. GASTROINTESTINAL: Abdomen soft, non-tender, nondistended. MUSCULOSKELETAL: No cyanosis, or edema. BACK: Nontender without obvious deformity. No CVA tenderness. A/P Assessment and Plan Pneumonia Septic emboli TV Endocarditis IV drug use Diarrhoea PLAN Cont Abx per ID Aerosol nebs Stool for C.diff Dw pt and his mother Agustin Marc MD Nov 26, 2016 16:47
[2016-11-26 17:28] LABS: CMV PCR SPECIMEN SOURCE csf; LYME IGG IMMUNOBLOT CSF None Detected bands (None Detected); LYME IGM IMMUNOBLOT CSF None Detected bands (None Detected)
[2016-11-26 19:54] LABS: VDRL CSF NON-REACTIVE (NON-REACTVE)
[2016-11-26] MEDS: ACETAMINOPHEN/HYDROcodone 325 MG/10 MG TAB PO PRN (23:14)
[2016-11-26] MEDS: ZOLPIDEM TARTRATE 10 MG TAB PO PRN (23:14)
[2016-11-27] VITALS (10 sets, daily range): BP systolic 123–142; BP diastolic 75–83; PULSE 78–91; RESP 16–20; TEMP 97.5–98.6; O2SAT 93–97
[2016-11-27] MEDS: RESP: ALBUTEROL 2.5 MG/IPRATROPIUM 0.5 MG NEB (SCH) NEB ×6 (03:58→20:00)
[2016-11-27] MEDS: CHLORHEXIDINE GLUCONATE 2 % 1 PACK (2 CLOTHS) TOP SCH (04:00)
[2016-11-27] MEDS: INSULIN NovoLIN REGULAR SUPPLEMENTAL SCALE SQ SCH ×4 (05:00→23:00)
[2016-11-27 07:49] LABS: AUTOMATED NEUTROPHIL # 8.1 TH/MM3 (1.8-7.7); BASOPHIL % 0.3 % (0.0-2.0); EOSINOPHIL # 0.1 TH/MM3 (0-0.4); EOSINOPHIL % 0.7 % (0.0-4.0); HEMATOCRIT 26.6 % (39.0-51.0); HEMO FLAGS DIFF FINAL; LYMPH % 4.9 % (9.0-44.0); LYMPHOCYTE # 0.4 TH/MM3 (1.0-4.8); MEAN CELL VOLUME 80.6 FL (80.0-100.0); MEAN CORPUSCULAR HEMOGLOBIN 27.3 PG (27.0-34.0); MEAN CORPUSCULAR HGB CONC 33.8 % (32.0-36.0); MONO % 4.5 % (0.0-8.0); NEUT % 89.6 % (16.0-70.0); PLATELET COUNT 115 TH/MM3 (150-450); RED CELL DISTRIBUTION WIDTH 15.9 % (11.6-17.2)
[2016-11-27 08:28] LABS: ALKALINE PHOSPHATASE 134 U/L (45-117); ALT (GPT) 36 U/L (12-78); ANION GAP 10 MEQ/L (5-15); AST (GOT) 34 U/L (15-37); BICARBONATE 17.6 MEQ/L (21.0-32.0); BLOOD UREA NITROGEN 22 MG/DL (7-18); CALCIUM-PROTEIN CORRECTED 7.8 MG/DL (8.5-10.1); CHLORIDE 116 MEQ/L (98-107); FREE T4 0.97 NG/DL (0.76-1.46); GLOMERULAR FILTRATION RATE 84 ML/MIN (>89); MAGNESIUM 2.2 MG/DL (1.5-2.5); POTASSIUM 3.2 MEQ/L (3.5-5.1); SODIUM (NA) 144 MEQ/L (136-145); TOTAL BILIRUBIN ADULT 1.3 MG/DL (0.2-1.0)
[2016-11-27] MEDS: PANTOPRAZOLE SODIUM 40 MG VIAL IV SCH (09:12)
[2016-11-27] MEDS: ACETAMINOPHEN/HYDROcodone 325 MG/10 MG TAB PO PRN ×3 (09:12→20:47)
[2016-11-27] MEDS: CALCIUM CARBONATE 1.25 GM (CA 500 MG) TAB PO SCH ×2 (09:12→20:45)
[2016-11-27] MEDS: guaiFENesin E.R. 600 MG TAB PO SCH ×2 (09:12→20:45)
--- NOTE | 2016-11-27 10:31 | HHI.PR ---
Subjective Remarks 45 YOWM with TV Endocarditis,Lung cavities likly septic emboli No diarrhoea No Fever no Abd pain Feels better Objective Vital Signs Vital Signs Date Time Temp Pulse Resp B/P (MAP) Pulse Ox O2 Delivery O2 Flow Rate FiO2 11/27/16 09:46 94 21 11/27/16 09:24 98.6 89 20 129/82 (98) 93 11/27/16 04:00 98.1 90 20 142/83 (102) 93 11/27/16 00:38 96 Nasal Cannula 4.00 11/27/16 00:00 98.2 88 20 136/75 (95) 96 11/26/16 20:00 Nasal Cannula 4.00 11/26/16 20:00 95 11/26/16 20:00 98.7 95 20 141/81 (101) 99 11/26/16 16:10 98.2 102 21 122/81 (95) 95 11/26/16 15:52 93 Nasal Cannula 4.00 11/26/16 12:20 98.1 92 22 139/82 (101) 93 I/O 11/26/16 11/26/16 11/26/16 11/27/16 11/27/16 11/27/16 07:00 15:00 23:00 07:00 15:00 23:00 Intake Total 1540 ml 560 ml 580 ml Output Total 800 ml 250 ml 550 ml Balance 740 ml -250 ml 560 ml 30 ml Intake Oral 1200 ml 360 ml 580 ml IV Total 340 ml 200 ml Output Urine Total 800 ml 250 ml 550 ml # Voids 6 # Bowel Movements 8 3 6 Result Diagram: 11/27/1648 11/27/16 0648 Objective Remarks GENERAL: MBMN WM, NAD SKIN: Warm and dry. HEAD: Normocephalic. EYES: No scleral icterus. No injection or drainage. NECK: Supple, trachea midline. No JVD or lymphadenopathy. CARDIOVASCULAR: Regular rate and rhythm without murmurs, gallops, or rubs. RESPIRATORY: Breath sounds equal bilaterally. No accessory muscle use. GASTROINTESTINAL: Abdomen soft, non-tender, nondistended. MUSCULOSKELETAL: No cyanosis, or edema. BACK: Nontender without obvious deformity. No CVA tenderness. A/P Assessment and Plan Pneumonia Septic emboli TV Endocarditis IV drug use Diarrhoea PLAN Cont Abx per ID Aerosol nebs Stable from pulm standpoint Coverage Available prn Agustin Marc MD Nov 27, 2016 10:31
--- NOTE | 2016-11-27 12:14 | HHI.PR ---
Subjective Remarks The patient is a 45-year-old male with past medical history of colon cancer on radiation treatment last session on Wednesday and has been on radiation for the past 2-3 months being followed by Dr. Harrell, his oncologist, and Dr. Galvan. He presented to [facility] emergency department with a couple of days history of shortness of breath, pleuritic chest pain with deep inspiration , dry cough and feeling nauseous. The patient denies any exposure to sick contacts. In addition, he denies any prior history of pneumonia or flu. He was found to have a temperature of 101.4 orally in the ER. In addition hewas tachycardiac with heart rate of 120s to 130s. Chest x-ray in the ER showed new bilateral mild air space opacities. The patient subsequently had CT scan of the chest which showed multiple new solid and cavitary irregular nodules seen throughout the lungs bilaterally, and small right-sided pleural effusion. His laboratory data is significant for renal failure with a creatinine level of 2.29 and hypokalemia with a potassium level of 2.8. His lactic acid level measured at 1.2. The patient also is thrombocytopenic with a platelet count of 55, however, his INR is 1.2. In the ED he was given three liters of Crystalloid in addition to cefepime, azithromycin, Tylenol and DuoNeb. When seen in the ER he was on room air oxygen with saturation 96%. However, tachycardiac with heart rate of 123 and blood pressure 154/75. He denies any vomiting, abdominal pain. 11/16 No events overnight. Patient is lying in bed in NAD. Afebrile. renal function is improving with Cr: 1.54 from 2.0. Echo from yesterday showed vegetation on TV, EF 50-55%. 11/17 Patient is lying in bed in NAD. Afebrile. 11/18: decompensated overnight. now intubated, on vasopressors, on 100% fio2 APRV with paO2 72. severe ARDS likely combination of pulmonary septic emboli combined with CHF from severe TR, however also now in septic shock. 11/19: persistently hypoxic on APRV. fio2 weaned but still requiring high Phigh in order to remain oxygenated. Cr continues to rise with minimal uop (~300cc/24h ) despite bumex drip. vasopressors continue and remains in shock. 11/20 Patient is sedated with Diprivan, Fentanyl and intubated. On Levophed 8 mics and Vasopressin 0.04 mics. Afebrile. On Bumex drip. 11/21 Patient remains intubated and sedated with Diprivan and Fentanyl. Afebrile. On Bumex drip 0.5mg/hr. Renal function is improving with Cr: 3.21 from 3.81 with UOP: 9424ml in 24 hrs Off all pressors. 11/22 Patient remains sedated with Diprivan, Fentanyl and intubated. T:100.4 at 4 am. WBC is trending down. Renal function is improving with Cr: 2.59 today from 3.21 on Bumex drip 0.5mg/hr. 11/23 Patient is off Diprivan was on Feminal drip overnight however he is awake and follows simple commands. T:100.7. Off Bumex drip. Patient was given additional 2units PRBC ( 3 total) overnight Hgb 9.3 from 6.9. 11/24 No events overnight. Tolerated CPAP for several hrs yesterday now sedated with Diprivan and Fentanyl drips. s/p LP yesterday clear CSF normal protein and glc.. Renal function continue to improve with Cr: 1.29 today from 1.69. Tmax 101.3 11/25: TMax 99.8. Patient has been extubated alert and oriented, conversant appropriately. No acute events overnight. Patient is maintaining O2 saturation via nasal cannula 5 L/m Sodium level improving, renal function also improving. 11/26 PATIENT REMAINS IN ISOLATION COMPLAINS OF DIARRHEA REMAINS AFEBRILE TRANSFER OUT OF ICU CAN MORE TO FLOOR - OUT OF ICU -ON THE FLOOR NOW NEEDS PT AND OT DW RN AND PT CONTINUE RETIREMENT ANTIBIOTICS VERY WEAK STILL Objective Vitals Vital Signs Date Time Temp Pulse Resp B/P (MAP) Pulse Ox O2 Delivery O2 Flow Rate FiO2 11/27/16 09:46 94 21 11/27/16 09:24 98.6 89 20 129/82 (98) 93 11/27/16 08:30 Nasal Cannula 2.00 11/27/16 08:30 84 11/27/16 04:00 98.1 90 20 142/83 (102) 93 11/27/16 00:38 96 Nasal Cannula 4.00 11/27/16 00:00 98.2 88 20 136/75 (95) 96 11/26/16 20:00 Nasal Cannula 4.00 11/26/16 20:00 95 11/26/16 20:00 98.7 95 20 141/81 (101) 99 11/26/16 16:10 98.2 102 21 122/81 (95) 95 11/26/16 15:52 93 Nasal Cannula 4.00 11/26/16 12:20 98.1 92 22 139/82 (101) 93 I/O 11/26/16 11/26/16 11/26/16 11/27/16 11/27/16 11/27/16 07:00 15:00 23:00 07:00 15:00 23:00 Intake Total 1540 ml 560 ml 580 ml Output Total 800 ml 250 ml 550 ml Balance 740 ml -250 ml 560 ml 30 ml Intake Oral 1200 ml 360 ml 580 ml IV Total 340 ml 200 ml Output Urine Total 800 ml 250 ml 550 ml # Voids 6 # Bowel Movements 8 3 6 Result Diagram: 11/27/16 0648 11/27/16 0648 Other Results Laboratory Tests Test 11/24/16 17:55 11/25/16 03:21 11/25/16 09:05 11/26/16 04:12 Potassium Level 3.5 MEQ/L 3.3 MEQ/L 3.5 MEQ/L White Blood Count 8.8 TH/MM3 9.1 TH/MM3 Red Blood Count 3.48 MIL/MM3 3.34 MIL/MM3 Hemoglobin 9.1 GM/DL 9.0 GM/DL Hematocrit 27.8 % 27.0 % Mean Corpuscular Volume 80.0 FL 80.8 FL Mean Corpuscular Hemoglobin 26.2 PG 26.9 PG Mean Corpuscular Hemoglobin Concent 32.8 % 33.3 % Red Cell Distribution Width 16.0 % 15.9 % Platelet Count 101 TH/MM3 109 TH/MM3 Mean Platelet Volume 8.2 FL 8.4 FL Neutrophils (%) (Auto) 92.4 % Lymphocytes (%) (Auto) 3.5 % Monocytes (%) (Auto) 3.4 % Eosinophils (%) (Auto) 0.5 % Basophils (%) (Auto) 0.2 % Neutrophils # (Auto) 8.2 TH/MM3 Lymphocytes # (Auto) 0.3 TH/MM3 Monocytes # (Auto) 0.3 TH/MM3 Eosinophils # (Auto) 0.0 TH/MM3 Basophils # (Auto) 0.0 TH/MM3 CBC Comment AUTO DIFF Differential Total Cells Counted 100 Neutrophils % (Manual) 93 % Band Neutrophils % 2 % Lymphocytes % 4 % Neutrophils # (Manual) 8.4 TH/MM3 Promyelocytes 1 % Nucleated Red Blood Cells 1 /100 WBC Differential Comment FINAL DIFF MANUAL Platelet Estimate LOW Platelet Morphology Comment NORMAL Red Cell Morphology Comment NORMAL Blood Urea Nitrogen 30 MG/DL 24 MG/DL Creatinine 0.93 MG/DL 0.94 MG/DL Random Glucose 90 MG/DL 87 MG/DL Total Protein 6.4 GM/DL 6.4 GM/DL Albumin 1.4 GM/DL 1.5 GM/DL Calcium Level 7.1 MG/DL 7.0 MG/DL Alkaline Phosphatase 176 U/L 150 U/L Aspartate Amino Transf (AST/SGOT) 37 U/L 26 U/L Alanine Aminotransferase (ALT/SGPT) 33 U/L 32 U/L Total Bilirubin 1.3 MG/DL 1.2 MG/DL Direct Bilirubin 0.9 MG/DL 0.8 MG/DL Sodium Level 148 MEQ/L 144 MEQ/L Chloride Level 117 MEQ/L 117 MEQ/L Carbon Dioxide Level 24.0 MEQ/L 19.0 MEQ/L Anion Gap 7 MEQ/L 8 MEQ/L Estimat Glomerular Filtration Rate 89 ML/MIN 88 ML/MIN Protein Corrected Calcium 7.5 MG/DL 7.4 MG/DL Indirect Bilirubin 0.4 MG/DL 0.4 MG/DL Stool C. difficile Toxin (PCR) NEGATIVE Stl C. difficile Toxin Epiderm 027 PRESUMPTIVE NEGATIVE Phosphorus Level 2.1 MG/DL Magnesium Level 2.2 MG/DL Test 11/27/16 06:48 White Blood Count 9.0 TH/MM3 Red Blood Count 3.30 MIL/MM3 Hemoglobin 9.0 GM/DL Hematocrit 26.6 % Mean Corpuscular Volume 80.6 FL Mean Corpuscular Hemoglobin 27.3 PG Mean Corpuscular Hemoglobin Concent 33.8 % Red Cell Distribution Width 15.9 % Platelet Count 115 TH/MM3 Mean Platelet Volume 8.8 FL Neutrophils (%) (Auto) 89.6 % Lymphocytes (%) (Auto) 4.9 % Monocytes (%) (Auto) 4.5 % Eosinophils (%) (Auto) 0.7 % Basophils (%) (Auto) 0.3 % Neutrophils # (Auto) 8.1 TH/MM3 Lymphocytes # (Auto) 0.4 TH/MM3 Monocytes # (Auto) 0.4 TH/MM3 Eosinophils # (Auto) 0.1 TH/MM3 Basophils # (Auto) 0.0 TH/MM3 CBC Comment DIFF FINAL Differential Comment Blood Urea Nitrogen 22 MG/DL Creatinine 0.97 MG/DL Random Glucose 86 MG/DL Total Protein 6.1 GM/DL Albumin 1.4 GM/DL Calcium Level 7.3 MG/DL Phosphorus Level 3.5 MG/DL Magnesium Level 2.2 MG/DL Alkaline Phosphatase 134 U/L Aspartate Amino Transf (AST/SGOT) 34 U/L Alanine Aminotransferase (ALT/SGPT) 36 U/L Total Bilirubin 1.3 MG/DL Sodium Level 144 MEQ/L Potassium Level 3.2 MEQ/L Chloride Level 116 MEQ/L Carbon Dioxide Level 17.6 MEQ/L Anion Gap 10 MEQ/L Estimat Glomerular Filtration Rate 84 ML/MIN Protein Corrected Calcium 7.8 MG/DL Free Thyroxine 0.97 NG/DL Thyroid Stimulating Hormone 3rd Gen 2.010 uIU/ML Imaging Last Impressions Chest X-Ray 11/25/16 0600 Signed Impressions: Service Date/Time: Friday, November 25, 2016 02:53 - CONCLUSION: 1. Stable patchy airspace disease and slight interstitial prominence consistent with atypical infection or edema pattern. 2. Stable small right pleural effusion. 1. Checo Leon MD Lumbar Puncture Fluoroscopy 11/21/16 0000 Signed Impressions: Service Date/Time: Wednesday, November 23, 2016 15:08 - CONCLUSION: Uncomplicated fluoroscopically guided lumbar puncture with pressures as above. Horace Kirkland MD Thoracic Spine MRI 11/20/16 0000 Signed Impressions: Service Date/Time: Sunday, November 20, 2016 21:36 - CONCLUSION: 1. No focal abnormality within the thoracic spine. 2. There is edema/inflammatory change seen in the soft tissues to the left of the C7 and T1 spinous processes better seen on the cervical spine MRI examination. 3. Cavitary lesions in the lungs. Manolo Anne MD Lumbar Spine MRI 11/20/16 0000 Signed Impressions: Service Date/Time: Sunday, November 20, 2016 21:36 - CONCLUSION: 1. No areas of significant stenosis. The disc spaces are preserved. 2. Mild facet hypertrophy at the L3-L4 and L4-L5 old. 3. Nonspecific areas of edema within the soft tissues adjacent to the spinous processes throughout the lumbar spine. This can be seen secondary to some dependent edema. Inflammatory change cannot be excluded. It does appear fairly symmetric when comparing right to left. 4. Ascites. Manolo Anne MD Chest CT 11/20/16 Signed Impressions: Service Date/Time: Sunday, November 20, 2016 11:30 - CONCLUSION: Deterioration in the appearance of the chest with increasing size of nodules and consolidation. Worsening of an inflammatory process is suspected. Michael Youssef MD FACR Cervical Spine MRI 11/20/16 Signed Impressions: Service Date/Time: Sunday, November 20, 2016 21:36 - CONCLUSION: 1. 2.4 cm vague area of edema seen to the left of the spinous processes of C7 and T1 concerning for focal inflammatory/infectious change. The spinous processes themselves demonstrate normal signal. 2. Suspected hemangioma at the C7 vertebral body. 3. Fluid in the nasopharynx, oropharynx and hypopharynx. There is an NG tube and ET tube in place. Manolo Anne MD Brain MRI 11/20/16 Signed Impressions: Service Date/Time: Sunday, November 20, 2016 21:36 - CONCLUSION: 1. Abnormal gyriform signal abnormality in the left frontal and parietal regions associated with some minimally increased signal on the diffusion weighted images. Findings are nonspecific. Differential diagnosis includes an area of meningitis or leptomeningeal spread of tumor given history of malignancy. Infarction less likely. No associated mass effect. Recommend further evaluation with MRI brain with contrast to assess for abnormal meningeal enhancement. Bruno Cleaning MD Abdomen/Pelvis CT 11/20/16 Signed Impressions: Service Date/Time: Sunday, November 20, 2016 11:30 - CONCLUSION: Significant aeration appearance of the lungs. Generalized anasarca, negative for abscess. Adults abdominal abscess. Michael Youssef MD FACR Renal Ultrasound 11/15/16 0000 Signed Impressions: Service Date/Time: Tuesday, November 15, 2016 10:26 - CONCLUSION: Normal examination. Katie Nevarez MD Objective Remarks GENERAL: AWAKE ALERT AND ORIENTED X3 SKIN: Warm and dry.TATTOOS HEAD: Atraumatic. Normocephalic. EYES: Pupils equal and round. No scleral icterus. No injection or drainage. EOMI ENT: No nasal bleeding or discharge. Mucous membranes pink and moist. TONGUE IS MIDLINE NECK: Trachea midline. No JVD. SUPPLE CARDIOVASCULAR: Regular rate and rhythm. S1, S2 NO S3 OR S4 POSITIVE MURMUR RESPIRATORY: No accessory muscle use. COARSE BREATH SOUNDS BL. Breath sounds equal bilaterally. GASTROINTESTINAL: Abdomen soft, non-tender, nondistended. Hepatic and splenic margins not palpable. MUSCULOSKELETAL: Extremities without clubbing, cyanosis, or edema. No obvious deformities. NEUROLOGICAL: Awake and alert. No obvious cranial nerve deficits. Motor grossly within normal limits. 4 out of 5 muscle strength in the arms and legs. Normal speech. PSYCHIATRIC: SLIGHTLY INAppropriate mood and affect; insight and judgment ABnormal. Procedures SP VDRF SP LP Medications and IVs Current Medications Acetaminophen (Tylenol) 650 mg ONCE ONCE PO Last administered on 11/15/16 07: 40; Start 11/15/16 at 07:30; Stop 11/15/16 at 07:31; Status DC Ondansetron HCl (Zofran Inj) 4 mg ONCE ONCE IV Last administered on 11/15/16 07:40; Start 11/15/16 at 07:30; Stop 11/15/16 at 07:31; Status DC Sodium Chloride 1,000 ml @ 1,000 mls/hr Q1H ONCE IV Last administered on 07:40; Start 11/15/16 at 07:24; Stop 11/15/16 at 08:23; Status DC Sodium Chloride 1,000 ml @ 1,000 mls/hr Q1H ONCE IV Last administered on 07:40; Start 11/15/16 at 07:24; Stop 11/15/16 at 08:23; Status DC Sodium Chloride 100 ml @ 1,000 mls/hr Q6M ONCE IV Last administered on 07:40; Start 11/15/16 at 07:24; Stop 11/15/16 at 07:29; Status DC Cefepime HCl 2000 mg/Sodium Chloride 100 ml @ 200 mls/hr ONCE ONCE IV Last administered on 11/15/16 08:53; Start 11/15/16 at 07:45; Stop 11/15/16 at 08:14 ; Status DC Azithromycin 500 mg/Sodium Chloride 250 ml @ 250 mls/hr ONCE ONCE IV Last administered on 11/15/16 07:48; Start 11/15/16 at 07:45; Stop 11/15/16 at 08:44 ; Status DC Albuterol/ Ipratropium (Duoneb Neb) 2 ampule ONCE ONCE NEB Last administered on 11/15/16 07:58; Start 11/15/16 at 08:00; Stop 11/15/16 at 08:01; Status DC Potassium Chloride (KCl) 20 meq ONCE ONCE PO ; Start 11/15/16 at 08:30; Stop at 08:31; Status DC Potassium Chloride 100 ml @ 50 mls/hr Q2H IV Last administered on 11/15/16 17 :03; Start 11/15/16 at 08:30; Stop 11/15/16 at 12:29; Status DC Morphine Sulfate (Morphine Inj) 2 mg ONCE ONCE IV PUSH Last administered on 08:53; Start 11/15/16 at 08:45; Stop 11/15/16 at 08:46; Status DC Pantoprazole Sodium (Protonix Inj) 40 mg DAILY IV Last administered on 09:12; Start 11/15/16 at 10:00 Albuterol/ Ipratropium (Duoneb Neb) 1 ampule Q6HR NEB INH Last administered on 11/19/16 03:16; Start 11/15/16 at 10:00; Stop 11/19/16 at 07:58; Status DC Ipratropium [place] (Atrovent Neb) 0.5 mg Q2HR NEB PRN INH WHEEZING Last administered on 11/18/16 01:12; Start 11/15/16 at 09:00; Stop 11/24/16 at 14:44 ; Status DC Miscellaneous Information 1 [id number] ; Start 11/15/16 at 09:00 Chlorhexidine Gluconate (Chlorhexidine 2% Cloth) Taper DAILY@04 TOP Last administered on 11/26/16 03:13; Start 11/16/16 at 04:00; Stop 11/12/17 at 03:59 Chlorhexidine Gluconate (Chlorhexidine 2% Cloth) 3 pack UNSCH PRN TOP HYGIENIC CARE; Start 11/15/16 at 09:00 Senna/Docusate Sodium (Marina-Colace) 1 tab BID PO Last administered on 11/22/16 21:52; Start 11/15/16 at 11:00; Stop 11/23/16 at 11:41; Status DC Magnesium Hydroxide (Milk Of Magnesia Liq) 30 ml Q12H PRN PO MILD - MODERATE CONSTIPATION; Start 11/15/16 at 09:00 Sennosides (Senokot) 17.2 mg Q12H PRN PO MODERATE - SEVERE CONSTIPATION; Start 11/15/16 at 09:00 Bisacodyl (Dulcolax Supp) 10 mg DAILY PRN RECTAL SEVERE CONSITIPATION; Start at 09:00 Lactulose (Lactulose Liq) 30 ml DAILY PRN PO SEVERE CONSITIPATION; Start at 09:00 Dextrose (D50w (Vial) Inj) 50 ml UNSCH PRN IV HYPOGLYCEMIA-SEE COMMENTS; Start 11/15/16 at 09:45 Glucagon (Glucagon Inj) 1 mg UNSCH PRN OTHER HYPOGLYCEMIA-SEE COMMENTS; Start 11/15/16 at 09:45 Insulin Human Regular (NovoLIN R SUPPLEMENTAL SCALE) 1 Q6H SQ Last administered on 11/21/16 22:24; Start 11/15/16 at 11:00 Sodium Chloride 1,000 ml @ 75 mls/hr [id number] IV Last administered on 11:37; Start 11/15/16 at 09:45; Stop 11/17/16 at 10:14; Status DC Vancomycin HCl 1000 mg/Sodium Chloride 250 ml @ 250 mls/hr ONCE ONCE IV Last administered on 11/15/16 10:27; Start 11/15/16 at 10:00; Stop 11/15/16 at 10:59 ; Status DC Piperacillin Sod/ Tazobactam Sod 50 ml @ 100 mls/hr Q6H IV Last administered on 11/16/16 11:37; Start 11/15/16 at 12:00; Stop 11/16/16 at 13:33; Status DC Azithromycin 500 mg/Sodium Chloride 250 ml @ 250 mls/hr Q24H IV ; Start at 08:00; Stop 11/16/16 at 08:00; Status DC Pharmacy Profile Note 0 ml @ 0 mls/hr UNSCH OTHER ; Start 11/15/16 at 10:00; Stop 11/17/16 at 11:03; Status DC Sodium Chloride 1,000 ml @ 999 mls/hr BOLUS ONCE IV Last administered on 11/15 15:16; Start 11/15/16 at 13:00; Stop 11/15/16 at 14:00; Status DC Oxycodone/ Acetaminophen (Percocet 5-325 Mg) 1 tab Q6H PRN PO pain; Start at 12:15; Stop 11/15/16 at 13:02; Status DC Hydromorphone HCl (Dilaudid Pf Inj) 1 mg Q3H PRN IV PUSH PAIN 1 TO 10 AND/OR AGITATION Last administered on 11/18/16 00:54; Start 11/15/16 at 13:00; Stop at 05:48; Status DC Oxycodone/ Acetaminophen (Percocet 5-325 Mg) 1 tab Q4H PRN PO PAIN 1-10 Last administered on 11/18/16 00:54; Start 11/15/16 at 13:00; Stop 11/18/16 at 05:48 ; Status DC Ondansetron HCl (Zofran Inj) 4 mg Q8H PRN IV PUSH NAUSEA OR VOMITING Last administered on 11/24/16 13:07; Start 11/15/16 at 13:15 Diltiazem HCl (Cardizem) 60 mg Q6HR PO Last administered on 11/17/16 23:39; Start 11/16/16 at 08:15; Stop 11/18/16 at 05:48; Status DC Vancomycin HCl 1250 mg/Sodium Chloride 262.5 ml @ 262.5 mls/ hr Q18H IV Last administered on 11/17/16 08:01; Start 11/16/16 at 14:00; Stop 11/17/16 at 11:03 ; Status DC Miscellaneous Information SPECIFIC LAB TO BE CONSTANTINO... ONCE ONCE .XX ; Start 11/18 at 19:45; Stop 11/18/16 at 19:46; Status Cancel Piperacillin Sod/ Tazobactam Sod 50 ml @ 100 mls/hr Q8H IV Last administered on 11/17/16 05:06; Start 11/16/16 at 20:00; Stop 11/17/16 at 07:33; Status DC Potassium Chloride 100 ml @ 50 mls/hr Q2H PRN IV For Potassium 2.8 - 3.2 mEq/L ; Start 11/17/16 at 10:15; Stop 11/18/16 at 06:12; Status DC Potassium Chloride 100 ml @ 50 mls/hr Q2H PRN IV For Potassium 2.8 - 3.2 mEq/ L Last administered on 11/17/16 15:13; Start 11/17/16 at 10:15; Stop 11/18/16 at 06:12; Status DC Potassium Bicarb/ Potassium Chloride (K-Lyte Cl Eff) 50 meq UNSCH PRN PO For Potassium 3.3 - 3.5 mEq/L; Start 11/17/16 at 10:15; Stop 11/18/16 at 06:12; Status DC Potassium Chloride 100 ml @ 25 mls/hr UNSCH PRN IV For Potassium 3.3 - 3.5 mEq /L; Start 11/17/16 at 10:15; Stop 11/18/16 at 06:12; Status DC Potassium Chloride 100 ml @ 50 mls/hr Q2H PRN IV For Potassium 3.3 - 3.5 mEq/ L Last administered on 11/17/16 17:30; Start 11/17/16 at 10:15; Stop 11/18/16 at 06:12; Status DC Magnesium Sulfate 4 gm/Sodium Chloride 100 ml @ 50 mls/hr UNSCH PRN IV For Magnesium 0.9 - 1.1 mg/dL; Start 11/17/16 at 10:15; Stop 11/18/16 at 06:12; Status DC Magnesium Oxide (Mag-Ox) 800 mg UNSCH PRN PO For Magnesium 1.2 - 1.6 mg/dL; Start 11/17/16 at 10:15; Stop 11/18/16 at 06:12; Status DC Magnesium Sulfate 2 gm/Sodium Chloride 100 ml @ 50 mls/hr UNSCH PRN IV For Magnesium 1.2 - 1.6 mg/dL; Start 11/17/16 at 10:15; Stop 11/18/16 at 06:12; Status DC Potassium Phosphate (K-Phos) 2,000 mg Q4H PRN PO For Phosphorus < 2.5 mg/dL; Start 11/17/16 at 10:15; Stop 11/18/16 at 06:12; Status DC Sodium Phosphate 30 mmol/Sodium Chloride 250 ml @ 42 mls/hr UNSCH PRN IV For Phosphorus < 2.5 mg/dL; Start 11/17/16 at 10:15; Stop 11/18/16 at 06:12; Status DC Potassium Phosphate (K-Phos) 2,000 mg UNSCH PRN PO/TUBE SEE LABEL COMMENTS; Start 11/17/16 at 10:15; Stop 11/18/16 at 06:12; Status DC Potassium Phosphate 30 mmol/ Sodium Chloride 260 ml @ 42 mls/hr UNSCH PRN IV SEE LABEL COMMENTS; Start 11/17/16 at 10:15; Stop 11/18/16 at 06:12; Status DC Bumetanide (Bumex Inj) 1 mg ONCE ONCE IV PUSH Last administered on 11/17/16 11:13; Start 11/17/16 at 10:15; Stop 11/18/16 at 01:32; Status DC Daptomycin 590 mg/ Sodium Chloride 100 ml @ 200 mls/hr Q24H IV Last administered on 11/26/16 14:57; Start 11/17/16 at 12:00 Rifampin (Rifampin) 150 mg Q12HR PO Last administered on 11/24/16 21:03; Start 11/17/16 at 21:00; Stop 11/25/16 at 11:11; Status DC Bumetanide (Bumex Inj) 1 mg ONCE ONCE IV PUSH ; Start 11/18/16 at 01:30; Stop 11/18/16 at 01:32; Status DC Methylprednisolone Sodium Succinate (SoluMEDROL INJ) 80 mg ONCE ONCE IM Last administered on 11/18/16 04:17; Start 11/18/16 at 01:30; Stop 11/18/16 at 01:31 ; Status DC Etomidate (Amidate Inj) 20 mg ONCE ONCE IV PUSH Last administered on 01:54; Start 11/18/16 at 01:30; Stop 11/18/16 at 01:31; Status DC Succinylcholine Chloride (Quelicin Inj) 100 mg ONCE ONCE IV PUSH Last administered on 11/18/16 01:54; Start 11/18/16 at 01:30; Stop 11/18/16 at 01:32 ; Status DC Propofol 100 ml @ 2.193 mls/ hr Q24H PRN IV SEDATION Last administered on 12:10; Start 11/18/16 at 01:27; Stop 11/19/16 at 16:48; Status DC Fentanyl Citrate 250 ml @ 5 mls/hr Q24H PRN IV SEDATION Last administered on 21:16; Start 11/18/16 at 01:27; Stop 11/19/16 at 16:41; Status DC Midazolam HCl 100 ml @ 2 mls/hr Q24H PRN IV SEDATION Last administered on 01:55; Start 11/18/16 at 01:27; Stop 11/23/16 at 11:41; Status DC Etomidate (Amidate Inj) 20 mg STK-MED ONCE .ROUTE ; Start 11/18/16 at 01:30; Stop 11/18/16 at 01:31; Status DC Propofol 100 ml @ As Directed STK-MED ONCE .ROUTE ; Start 11/18/16 at 01:32; Stop 11/18/16 at 01:33; Status DC Potassium Chloride 100 ml @ 50 mls/hr Q2H PRN IV For Potassium 2.8 - 3.2 mEq/L ; Start 11/18/16 at 02:15; Stop 11/18/16 at 06:12; Status DC Potassium Chloride 100 ml @ 50 mls/hr Q2H PRN IV For Potassium 2.8 - 3.2 mEq/L ; Start 11/18/16 at 02:15; Stop 11/18/16 at 06:12; Status DC Potassium Bicarb/ Potassium Chloride (K-Lyte Cl Eff) 50 meq UNSCH PRN PO For Potassium 3.3 - 3.5 mEq/L; Start 11/18/16 at 02:15; Stop 11/18/16 at 06:12; Status DC Potassium Chloride 100 ml @ 25 mls/hr UNSCH PRN IV For Potassium 3.3 - 3.5 mEq /L; Start 11/18/16 at 02:15; Stop 11/18/16 at 06:12; Status DC Potassium Chloride 100 ml @ 50 mls/hr Q2H PRN IV For Potassium 3.3 - 3.5 mEq/L ; Start 11/18/16 at 02:15; Stop 11/18/16 at 06:12; Status DC Magnesium Sulfate 4 gm/Sodium Chloride 100 ml @ 50 mls/hr UNSCH PRN IV For Magnesium 0.9 - 1.1 mg/dL; Start 11/18/16 at 02:15; Stop 11/18/16 at 06:12; Status DC Magnesium Oxide (Mag-Ox) 800 mg UNSCH PRN PO For Magnesium 1.2 - 1.6 mg/dL; Start 11/18/16 at 02:15; Stop 11/18/16 at 06:12; Status DC Magnesium Sulfate 2 gm/Sodium Chloride 100 ml @ 50 mls/hr UNSCH PRN IV For Magnesium 1.2 - 1.6 mg/dL; Start 11/18/16 at 02:15; Stop 11/18/16 at 06:12; Status DC Potassium Phosphate (K-Phos) 2,000 mg Q4H PRN PO For Phosphorus < 2.5 mg/dL; Start 11/18/16 at 02:15; Stop 11/18/16 at 06:12; Status DC Sodium Phosphate 30 mmol/Sodium Chloride 250 ml @ 42 mls/hr UNSCH PRN IV For Phosphorus < 2.5 mg/dL; Start 11/18/16 at 02:15; Stop 11/18/16 at 06:12; Status DC Potassium Phosphate (K-Phos) 2,000 mg UNSCH PRN PO/TUBE SEE LABEL COMMENTS; Start 11/18/16 at 02:15; Stop 11/18/16 at 06:12; Status DC Potassium Phosphate 30 mmol/ Sodium Chloride 260 ml @ 42 mls/hr UNSCH PRN IV SEE LABEL COMMENTS; Start 11/18/16 at 02:15; Stop 11/18/16 at 06:12; Status DC Sodium Bicarbonate 150 meq/Dextrose 1,150 ml @ 75 mls/hr [id number] IV Last administered on 11/18/16t 04:17; Start 11/18/16 at 03:45; Stop 11/18/16 at 05:48 ; Status DC Sodium Chloride 1,000 ml @ 999 mls/hr BOLUS ONCE IV Last administered on 11/18 04:18; Start 11/18/16 at 03:45; Stop 11/18/16 at 04:45; Status DC Norepinephrine Bitartrate 4 mg/ Sodium Chloride 250 ml @ 7.5 mls/hr TITRATE PRN IV Blood pressure management Last administered on 11/18/16 01:55; Start at 03:45; Stop 11/18/16 at 07:51; Status DC Terbutaline Sulfate (Brethine Inj) 1 mg UNSCH PRN SQ For Extravasation; Start 11/18/16 at 03:45 Sodium Chloride 1,000 ml @ 100 mls/hr Q10H IV Last administered on 11/18/16 04:31; Start 11/18/16 at 04:30; Stop 11/18/16 at 05:48; Status DC Norepinephrine Bitartrate 4 mg/ Sodium Chloride 250 ml @ 7.5 mls/hr TITRATE PRN IV Blood pressure management; Start 11/18/16 at 05:30; Stop 11/18/16 at 06: 30; Status DC Vasopressin 40 units/Dextrose 100 ml @ 6 mls/hr [id number] IV ; Start 11/18/16 at 05:25; Stop 11/18/16 at 06:14; Status DC Bumetanide (Bumex Inj) 1 mg Q6H IV PUSH Last administered on 11/18/16 17:18; Start 11/18/16 at 06:00; Stop 11/20/16 at 08:02; Status DC Magnesium Oxide (Mag-Ox) 800 mg UNSCH PRN PO For Magnesium 1.2 - 1.6 mg/dL; Start 11/18/16 at 06:00; Stop 11/19/16 at 14:59; Status DC Magnesium Sulfate 4 gm/Sodium Chloride 100 ml @ 50 mls/hr UNSCH PRN IV For Magnesium 0.9 - 1.1 mg/dL; Start 11/18/16 at 06:00; Stop 11/19/16 at 14:59; Status DC Magnesium Sulfate 2 gm/Sodium Chloride 100 ml @ 50 mls/hr UNSCH PRN IV For Magnesium 1.2 - 1.6 mg/dL; Start 11/18/16 at 06:00; Stop 11/19/16 at 14:59; Status DC Potassium Chloride 100 ml @ 50 mls/hr Q2H PRN IV For Potassium 2.8 - 3.2 mEq/L ; Start 11/18/16 at 06:00; Stop 11/19/16 at 14:59; Status DC Potassium Chloride 100 ml @ 50 mls/hr Q2H PRN IV For Potassium 3.3 - 3.5 mEq/L ; Start 11/18/16 at 06:00; Stop 11/19/16 at 14:59; Status DC Potassium Chloride 100 ml @ 50 mls/hr Q2H PRN IV For Potassium 2.8 - 3.2 mEq/L ; Start 11/18/16 at 06:00; Stop 11/19/16 at 14:59; Status DC Potassium Chloride 100 ml @ 25 mls/hr UNSCH PRN IV For Potassium 3.3 - 3.5 mEq /L; Start 11/18/16 at 06:00; Stop 11/19/16 at 14:59; Status DC Potassium Phosphate (K-Phos) 2,000 mg Q4H PRN PO For Phosphorus < 2.5 mg/dL; Start 11/18/16 at 06:00; Stop 11/19/16 at 14:59; Status DC Potassium Phosphate (K-Phos) 2,000 mg UNSCH PRN PO/TUBE SEE LABEL COMMENTS; Start 11/18/16 at 06:00; Stop 11/19/16 at 14:59; Status DC Potassium Phosphate 30 mmol/ Sodium Chloride 260 ml @ 42 mls/hr UNSCH PRN IV SEE LABEL COMMENTS; Start 11/18/16 at 06:00; Stop 11/19/16 at 14:59; Status DC Sodium Phosphate 30 mmol/Sodium Chloride 250 ml @ 42 mls/hr UNSCH PRN IV For Phosphorus < 2.5 mg/dL; Start 11/18/16 at 06:00; Stop 11/19/16 at 14:59; Status DC Vasopressin 40 units/Dextrose 100 ml @ 1.5 mls/hr Q24H IV Last administered on 11/20/16t 08:47; Start 11/18/16 at 05:54; Stop 11/23/16 at 11:41; Status DC Norepinephrine Bitartrate 16 mg/ Sodium Chloride 250 ml @ 7.5 mls/hr TITRATE PRN IV Blood pressure management; Start 11/18/16 at 06:45; Status Cancel Norepinephrine Bitartrate 16 mg/ Sodium Chloride 250 ml @ 1.87 mls/hr TITRATE PRN IV Maintain MAP > 65 mmHg Last administered on 11/19/16 07:52; Start at 06:45; Stop 11/25/16 at 09:52; Status DC Piperacillin Sod/ Tazobactam Sod 100 ml @ 200 mls/hr Q8H IV Last administered on 11/21/16 08:50; Start 11/18/16 at 08:00; Stop 11/21/16 at 10:28; Status DC Ceftaroline Fosamil 600 mg/ Sodium Chloride 100 ml @ 100 mls/hr Q8H IV Last administered on 11/19/16 09:02; Start 11/18/16 at 09:00; Stop 11/19/16 at 11:03 ; Status DC Bumetanide (Bumex Inj) 1 mg ONCE ONCE IV PUSH Last administered on 11/18/16 10:06; Start 11/18/16 at 10:00; Stop 11/18/16 at 10:01; Status DC Sodium Chloride 1,000 ml @ 100 mls/hr Q10H IV Last administered on 11/18/16 08:00; Start 11/18/16 at 10:00; Stop 11/18/16 at 19:31; Status DC Bumetanide 100 ml @ 4 mls/hr Q24H IV ; Start 11/18/16 at 18:13; Status Cancel Bumetanide 100 ml @ 4 mls/hr Q24H IV Last administered on 11/19/16 23:17; Start 11/18/16 at 19:00; Stop 11/20/16 at 17:02; Status DC Albuterol/ Ipratropium (Duoneb Neb) 1 ampule Q6HR NEB INH Last administered on 11/23/16 08:16; Start 11/19/16 at 10:00; Stop 11/23/16 at 09:59; Status DC Chlorothiazide Sodium (Diuril Inj) 500 mg ONCE ONCE IV Last administered on 10:03; Start 11/19/16 at 09:15; Stop 11/19/16 at 09:16; Status DC Acetazolamide Sodium (Diamox Inj) 500 mg ONCE ONCE IV PUSH Last administered on 11/19/16 10:03; Start 11/19/16 at 09:15; Stop 11/19/16 at 09:16; Status DC Spironolactone (Aldactone) 25 mg ONCE ONCE PO Last administered on 11/19/16 10:03; Start 11/19/16 at 09:00; Stop 11/19/16 at 09:02; Status DC Ceftaroline Fosamil 400 mg/ Sodium Chloride 100 ml @ 100 mls/hr Q8H IV Last administered on 11/21/16 00:51; Start 11/19/16 at 17:00; Stop 11/21/16 at 10:53; Status DC Fentanyl Citrate 250 ml @ 5 mls/hr TITRATE PRN IV Sedation Last administered on 11/24/16 06:41; Start 11/19/16 at 17:00; Stop 11/24/16 at 11:53; Status DC Propofol 100 ml @ 2.427 mls/ hr TITRATE PRN IV SEDATION Last administered on 08:50; Start 11/19/16 at 17:00; Stop 11/21/16 at 12:09; Status DC Chlorothiazide Sodium (Diuril Inj) 500 mg ONCE ONCE IV ; Start 11/20/16 at 06:30 ; Stop 11/20/16 at 08:23; Status DC Albumin Human (Albumin 25% Inj) 25 gm ONCE ONCE IV ; Start 11/20/16 at 06:30; Stop 11/20/16 at 06:31; Status DC Sodium Bicarbonate (Sodium Bicarbonate 8.4% Inj) 100 meq ONCE ONCE IV PUSH Last administered on 11/20/16 09:46; Start 11/20/16 at 09:45; Stop 11/20/16 at 09: 46; Status DC Bumetanide 100 ml @ 2 mls/hr Q24H IV Last administered on 11/20/16 18:00; Start 11/20/16 at 18:00; Stop 11/22/16 at 07:24; Status DC Ceftaroline Fosamil 400 mg/ Sodium Chloride 100 ml @ 100 mls/hr Q8H IV Last administered on 11/26/16 11:59; Start 11/21/16 at 11:00; Stop 11/26/16 at 13:53; Status DC Propofol 100 ml @ 2.19 mls/hr TITRATE PRN IV SEDATION Last administered on 11/24 04:33; Start 11/21/16 at 12:15; Stop 11/24/16 at 11:53; Status DC Acyclovir Sodium 730 mg/Sodium Chloride 150 ml @ 150 mls/hr Q8H IV Last administered on 11/24/16 04:50; Start 11/21/16 at 14:00; Stop 11/24/16 at 11:32; Status DC Midazolam HCl (Versed Inj) 2 mg ONCE ONCE IV PUSH Last administered on 16:39; Start 11/21/16 at 16:30; Stop 11/21/16 at 16:31; Status DC Water (Free Water) 300 ml Q6HR G-TUBE Last administered on 11/23/16 00:00; Start 11/22/16 at 07:30; Stop 11/23/16 at 07:23; Status DC Potassium Chloride 100 ml @ 25 mls/hr BOLUS ONCE IV Last administered on 08:16; Start 11/22/16 at 08:00; Stop 11/22/16 at 11:59; Status DC Acetaminophen (Tylenol) 650 mg Q6H PRN PO fever Last administered on 11/23/16 12:09; Start 11/22/16 at 11:45 Potassium Chloride 100 ml @ 50 mls/hr BOLUS ONCE IV Last administered on 14:40; Start 11/22/16 at 15:00; Stop 11/22/16 at 16:59; Status DC Potassium Chloride 100 ml @ 25 mls/hr Q4H IV Last administered on 11/23/16 01: 36; Start 11/22/16 at 23:15; Stop 11/23/16 at 07:14; Status DC Sodium Chloride 250 ml @ 15 mls/hr ONCE ONCE IV ; Start 11/22/16 at 23:15; Stop 11/23/16 at 15:54; Status DC Water (Free Water) 300 ml Q4HR G-TUBE Last administered on 11/24/16 03:51; Start 11/23/16 at 08:00; Stop 11/25/16 at 09:52; Status DC Dextrose 1,000 ml @ 84 mls/hr [id number] IV Last administered on 11/24/16 06:42; Start 11/23/16 at 08:00; Stop 11/24/16 at 11:53; Status DC Albuterol/ Ipratropium (Duoneb Neb) 1 ampule Q6HR NEB NEB Last administered on 11/24/16 08:09; Start 11/23/16 at 12:00; Stop 11/24/16 at 14:44; Status DC Potassium Chloride 100 ml @ 50 mls/hr Q2H PRN IV For Potassium 2.8 - 3.2 mEq/ L Last administered on 11/24/16 12:17; Start 11/24/16 at 07:30; Stop 11/26/16 at 10:46; Status DC Potassium Chloride 100 ml @ 50 mls/hr Q2H PRN IV For Potassium 2.8 - 3.2 mEq/L ; Start 11/24/16 at 07:30; Stop 11/26/16 at 10:46; Status DC Potassium Bicarb/ Potassium Chloride (K-Lyte Cl Eff) 50 meq UNSCH PRN PO For Potassium 3.3 - 3.5 mEq/L; Start 11/24/16 at 07:30; Stop 11/26/16 at 10:46; Status DC Potassium Chloride 100 ml @ 25 mls/hr UNSCH PRN IV For Potassium 3.3 - 3.5 mEq /L; Start 11/24/16 at 07:30; Stop 11/26/16 at 10:46; Status DC Potassium Chloride 100 ml @ 50 mls/hr Q2H PRN IV For Potassium 3.3 - 3.5 mEq/ L Last administered on 11/25/16 07:00; Start 11/24/16 at 07:30; Stop 11/26/16 at 10:46; Status DC Magnesium Sulfate 4 gm/Sodium Chloride 100 ml @ 50 mls/hr UNSCH PRN IV For Magnesium 0.9 - 1.1 mg/dL; Start 11/24/16 at 07:30; Stop 11/26/16 at 10:46; Status DC Magnesium Oxide (Mag-Ox) 800 mg UNSCH PRN PO For Magnesium 1.2 - 1.6 mg/dL; Start 11/24/16 at 07:30; Stop 11/26/16 at 10:46; Status DC Magnesium Sulfate 2 gm/Sodium Chloride 100 ml @ 50 mls/hr UNSCH PRN IV For Magnesium 1.2 - 1.6 mg/dL; Start 11/24/16 at 07:30; Stop 11/26/16 at 10:46; Status DC Potassium Phosphate (K-Phos) 2,000 mg Q4H PRN PO For Phosphorus < 2.5 mg/dL Last administered on 11/26/16 09:36; Start 11/24/16 at 07:30; Stop 11/26/16 at 10: 46; Status DC Sodium Phosphate 30 mmol/Sodium Chloride 250 ml @ 42 mls/hr UNSCH PRN IV For Phosphorus < 2.5 mg/dL; Start 11/24/16 at 07:30; Stop 11/26/16 at 10:46; Status DC Potassium Phosphate (K-Phos) 2,000 mg UNSCH PRN PO/TUBE SEE LABEL COMMENTS; Start 11/24/16 at 07:30; Stop 11/26/16 at 10:46; Status DC Potassium Phosphate 30 mmol/ Sodium Chloride 260 ml @ 42 mls/hr UNSCH PRN IV SEE LABEL COMMENTS; Start 11/24/16 at 07:30; Stop 11/26/16 at 10:46; Status DC Albuterol/ Ipratropium (Duoneb Neb) 1 ampule Q4HR NEB NEB Last administered on 11/26/16 19:09; Start 11/24/16 at 12:00 Albuterol/ Ipratropium (Duoneb Neb) 1 ampule Q2HR NEB PRN NEB SHORTNESS OF BREATH; Start 11/24/16 at 12:00 Acetaminophen/ Hydrocodone Bitart ([place] 10-325 Mg) 1 tab Q4H PRN PO PAIN SCALE 4 TO 10 Last administered on 11/27/16 09:12; Start 11/25/16 at 02:45 Zolpidem Tartrate (Ambien) 10 mg HS PRN PO insomnia Last administered on 23:14; Start 11/25/16 at 02:45 Guaifenesin (Mucinex Er) 600 mg BID PO Last administered on 11/27/16 09:12; Start 11/26/16 at 09:00 Calcium Chloride 1 gm/Sodium Chloride 100 ml @ 100 mls/hr ONCE ONCE IV Last administered on 11/26/16 11:59; Start 11/26/16 at 10:45; Stop 11/26/16 at 11:44; Status DC Calcium Carbonate (Oscal) 1,000 mg BID PO Last administered on 11/27/16 09:12; Start 11/26/16 at 11:00 Urinary Catheter: No Vascular Central Line Catheter: Yes A/P Assessment and Plan Assessment and Plan Assessment: 45yM with 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 continues to be critically ill, ongoing shock and renal failure. Recently extubated 11/24. Pending evaluation cerebritis versus meningeal carcinomatosis. Prognosis guarded NO LONGER IN SHOCK Plan Neuro: Metabolic encephalopathy-resolved - GCS 15 -UDS: Opiates, Cocaine 11/23 s/p LP showed clear CSF, normal protein and glc, 10 WBC. Follow up on CSF cx and Cytology. 11/20: MRI brain: Abnormal gyriform signal abnormality in the left frontal and parietal regions associated with some minimally increased signal on the diffusion weighted images.ddx meningitis or leptomeningeal spread of tumor given history of malignancy. Neuro is following 11/20: Cervical CT: 2.4 cm vague area of edema seen to the left of the spinous processes of C7 and T1 concerning for focal inflammatory/infectious change. The spinous processes themselves demonstrate normal signal.. Suspected hemangioma at the C7 vertebral body 11/21 EEG: Encephalopathy, no epileptiform features. Pulm: Acute hypoxic and hypercarbic respiratory failure Septic pulmonary emboli Pulmonary Edema Severe ARDS - intubated 11/18 for worsening hypoxemia. Extubated 11/24 - Continue with vent support keep sat >92%. On PRVC RR 16, TV 550, IT;1.0, PEEP:5, FIO2 45% -Bronchodilators every 4 hours when necessary -CXR 11/25: Improving, small right bilateral pleural effusion -repeat CT chest 11/20: increasing size of nodules and consolidation. - 11/15 CT chest showed cavitary and irregular nodules throughout the lungs bilaterally. CV: Septic Shock Congestive Heart Failure Exacerbation secondary to valvulopathy Severe tricuspid regurgitation Pulmonary Edema -Monitor HR and BP keep MAP>65mmHg - Echo showed EF 50-55%, +Vegetations on TV, severe TR : RACHEL Intravascular volume overload Hypernatremia..improving - Monitor renal function, I/O's, avoid nephrotoxins, place on electrolytes replacement protocol. Will need K replacement today. -Monitor sodium level, encourage free water intake Renal function improving with Cr: 0.9 today from 1. - Renal US 11/15: Unremarkable. Renal signed off 11/24- Dr. Gillis FEN/GI: Acute protein calorie malnutrition- moderate Anion-gap metabolic acidosis Intravascular volume overload Colon cancer on radiation treatment Hepatitis C THROMBOCYTOPENIA CHRONIC Speech evaluation- Mechanical soft with thin liquids Protonix 40mg IV daily for GI prophylaxis ID: MRSA Tricuspid Valve infective endocarditis s/p Septic Shock - ID on board - Continue abx per ID ( On daptomycin, Rifampin, Teflaro) monitor CK's. -s/p LP 11/23: Clear CSF, 10 WBC, normal protein and glc. Follow up on CSF cx and Cytology - Echo showed vegetations on TV. - 11/15, 11/16, 09/17 BC: MRSA, 11/18 BC: MRSA - 11/15 Urine cx: MRSA, 11/18 sputum: MRSA -BC 11/20,11/21,11/22, 11/23: NGTD Heme: Anemia secondary to chronic illness Thrombocytopenia secondary to hepatic dysfunction THROMBOCYTOPENIA - Monitor CBC - Patient s/p transfusion 3 units PRBC total on 11/22, stool Hemoccult negative -Continue to monitor LFTs Endo: Hyperglycemia of critical illness - SSI with Accu-Cheks for glycemic control. GI prophylaxis with Protonix 40 milligrams daily and DVT prophylaxis with SCDs. Not on chemical anticoagulation prophylaxis due to thrombocytopenia. Lines: Right subclavian CVP placed 11/18- 11/24, peripheral IV's. AM LABS TRANSFER OUT OF ICU PT AND OT CASE MANAGEMENT FOR DC PLANNING HYPOKALEMIA REPLACE Discharge Planning WILL NEED IV ANTIBIOTICS AT DC Michael Hayden DO Nov 27, 2016 12:14
[2016-11-27] MEDS: SODIUM CHLORIDE 0.9% IV SCH (12:36)
[2016-11-27] MEDS: DAPTOMYCIN IV SCH (12:36)
[2016-11-27] MEDS: POTASSIUM CHLORIDE 10 MEQ CONTROLLED RELEASE TAB PO SCH ×2 (14:43→20:47)
[2016-11-27 16:00] LABS: HEMOGLOBIN A1a 1.1 %; HEMOGLOBIN A1b 1.6 %; HEMOGLOBIN Ao 85.6 %; HEMOGLOBIN LA1C 1.8 %
[2016-11-28] VITALS (7 sets, daily range): BP systolic 106–152; BP diastolic 80–89; PULSE 84–97; RESP 16–20; TEMP 97.4–99.5; O2SAT 93–100
[2016-11-28] MEDS: ACETAMINOPHEN/HYDROcodone 325 MG/10 MG TAB PO PRN ×5 (01:31→22:19)
[2016-11-28] MEDS: RESP: ALBUTEROL 2.5 MG/IPRATROPIUM 0.5 MG NEB (SCH) NEB ×3 (03:12→08:16)
[2016-11-28] MEDS: CHLORHEXIDINE GLUCONATE 2 % 1 PACK (2 CLOTHS) TOP SCH (04:00)
[2016-11-28] MEDS: INSULIN NovoLIN REGULAR SUPPLEMENTAL SCALE SQ SCH ×2 (05:00→11:00)
[2016-11-28 07:53] LABS: AUTOMATED NEUTROPHIL # 10.7 TH/MM3 (1.8-7.7); BASOPHIL % 0.3 % (0.0-2.0); EOSINOPHIL # 0.1 TH/MM3 (0-0.4); EOSINOPHIL % 0.9 % (0.0-4.0); HEMO FLAGS DIFF FINAL; LYMPH % 3.8 % (9.0-44.0); LYMPHOCYTE # 0.5 TH/MM3 (1.0-4.8); MEAN CELL VOLUME 81.5 FL (80.0-100.0); MEAN CORPUSCULAR HEMOGLOBIN 26.7 PG (27.0-34.0); MEAN CORPUSCULAR HGB CONC 32.8 % (32.0-36.0); MONO % 4.2 % (0.0-8.0); NEUT % 90.8 % (16.0-70.0); PLATELET COUNT 146 TH/MM3 (150-450); RED BLOOD COUNT 3.69 MIL/MM3 (4.50-5.90); WHITE BLOOD COUNT 11.7 TH/MM3 (4.0-11.0)
[2016-11-28 08:22] LABS: CALCIUM-PROTEIN CORRECTED 7.5 MG/DL (8.5-10.1); MAGNESIUM 2.2 MG/DL (1.5-2.5); POTASSIUM 3.9 MEQ/L (3.5-5.1)
[2016-11-28] MEDS: guaiFENesin E.R. 600 MG TAB PO SCH ×2 (08:59→21:00)
[2016-11-28] MEDS: CALCIUM CARBONATE 1.25 GM (CA 500 MG) TAB PO SCH ×2 (09:00→21:00)
[2016-11-28] MEDS: PANTOPRAZOLE SODIUM 40 MG VIAL IV SCH (09:00)
[2016-11-28] MEDS: POTASSIUM CHLORIDE 10 MEQ CONTROLLED RELEASE TAB PO SCH ×2 (11:05→21:00)
--- NOTE | 2016-11-28 11:50 | HHI.PR ---
Subjective Remarks The patient is a 45-year-old male with past medical history of colon cancer on radiation treatment last session on Wednesday and has been on radiation for the past 2-3 months being followed by Dr. Harrell, his oncologist, and Dr. Galvan. He presented to [facility] emergency department with a couple of days history of shortness of breath, pleuritic chest pain with deep inspiration , dry cough and feeling nauseous. The patient denies any exposure to sick contacts. In addition, he denies any prior history of pneumonia or flu. He was found to have a temperature of 101.4 orally in the ER. In addition hewas tachycardiac with heart rate of 120s to 130s. Chest x-ray in the ER showed new bilateral mild air space opacities. The patient subsequently had CT scan of the chest which showed multiple new solid and cavitary irregular nodules seen throughout the lungs bilaterally, and small right-sided pleural effusion. His laboratory data is significant for renal failure with a creatinine level of 2.29 and hypokalemia with a potassium level of 2.8. His lactic acid level measured at 1.2. The patient also is thrombocytopenic with a platelet count of 55, however, his INR is 1.2. In the ED he was given three liters of Crystalloid in addition to cefepime, azithromycin, Tylenol and DuoNeb. When seen in the ER he was on room air oxygen with saturation 96%. However, tachycardiac with heart rate of 123 and blood pressure 154/75. He denies any vomiting, abdominal pain. 11/16 No events overnight. Patient is lying in bed in NAD. Afebrile. renal function is improving with Cr: 1.54 from 2.0. Echo from yesterday showed vegetation on TV, EF 50-55%. 11/17 Patient is lying in bed in NAD. Afebrile. 11/18: decompensated overnight. now intubated, on vasopressors, on 100% fio2 APRV with paO2 72. severe ARDS likely combination of pulmonary septic emboli combined with CHF from severe TR, however also now in septic shock. 11/19: persistently hypoxic on APRV. fio2 weaned but still requiring high Phigh in order to remain oxygenated. Cr continues to rise with minimal uop (~300cc/24h ) despite bumex drip. vasopressors continue and remains in shock. 11/20 Patient is sedated with Diprivan, Fentanyl and intubated. On Levophed 8 mics and Vasopressin 0.04 mics. Afebrile. On Bumex drip. 11/21 Patient remains intubated and sedated with Diprivan and Fentanyl. Afebrile. On Bumex drip 0.5mg/hr. Renal function is improving with Cr: 3.21 from 3.81 with UOP: 9424ml in 24 hrs Off all pressors. 11/22 Patient remains sedated with Diprivan, Fentanyl and intubated. T:100.4 at 4 am. WBC is trending down. Renal function is improving with Cr: 2.59 today from 3.21 on Bumex drip 0.5mg/hr. 11/23 Patient is off Diprivan was on Feminal drip overnight however he is awake and follows simple commands. T:100.7. Off Bumex drip. Patient was given additional 2units PRBC ( 3 total) overnight Hgb 9.3 from 6.9. 11/24 No events overnight. Tolerated CPAP for several hrs yesterday now sedated with Diprivan and Fentanyl drips. s/p LP yesterday clear CSF normal protein and glc.. Renal function continue to improve with Cr: 1.29 today from 1.69. Tmax 101.3 11/25: TMax 99.8. Patient has been extubated alert and oriented, conversant appropriately. No acute events overnight. Patient is maintaining O2 saturation via nasal cannula 5 L/m Sodium level improving, renal function also improving. 11/26 PATIENT REMAINS IN ISOLATION COMPLAINS OF DIARRHEA REMAINS AFEBRILE TRANSFER OUT OF ICU CAN MORE TO FLOOR - OUT OF ICU -ON THE FLOOR NOW NEEDS PT AND OT DW RN AND PT CONTINUE ASSISTED ANTIBIOTICS VERY WEAK STILL 11-28 WANTS BLOOD GLUCOSE TESTING STOPPED ON 3 LITERS OXYGEN NOW NEEDS TO BE MORE ACTIVE Objective Vitals Vital Signs Date Time Temp Pulse Resp B/P (MAP) Pulse Ox O2 Delivery O2 Flow Rate FiO2 11/28/16 04:00 98.6 86 16 143/87 (105) 97 11/28/16 00:00 97.4 86 16 128/80 (96) 98 11/27/16 20:00 Nasal Cannula 4.00 Humidified 11/27/16 20:00 97.9 80 16 133/83 (100) 96 11/27/16 20:00 91 11/27/16 16:52 95 Nasal Cannula 2.00 11/27/16 16:14 98.2 78 20 137/82 (100) 95 11/27/16 12:55 97.5 81 20 123/80 (94) 97 I/O 11/27/16 11/27/16 11/27/16 11/28/16 11/28/16 11/28/16 07:00 15:00 23:00 07:00 15:00 23:00 Intake Total 580 ml 100 ml 120 ml Output Total 550 ml 550 ml 700 ml Balance 30 ml 100 ml -550 ml -580 ml Intake Oral 580 ml 120 ml IV Total 100 ml Output Urine Total 550 ml 550 ml 700 ml # Voids 2 Result Diagram: 11/28/1672111/28/16721 Other Results Laboratory Tests Test 11/26/16 04:12 11/27/16 06:48 11/28/16 07:22 White Blood Count 9.1 TH/MM3 9.0 TH/MM3 11.7 TH/MM3 Red Blood Count 3.34 MIL/MM3 3.30 MIL/MM3 3.69 MIL/MM3 Hemoglobin 9.0 GM/DL 9.0 GM/DL 9.8 GM/DL Hematocrit 27.0 % 26.6 % 30.0 % Mean Corpuscular Volume 80.8 FL 80.6 FL 81.5 FL Mean Corpuscular Hemoglobin 26.9 PG 27.3 PG 26.7 PG Mean Corpuscular Hemoglobin Concent 33.3 % 33.8 % 32.8 % Red Cell Distribution Width 15.9 % 15.9 % 16.0 % Platelet Count 109 TH/MM3 115 TH/MM3 146 TH/MM3 Mean Platelet Volume 8.4 FL 8.8 FL 8.6 FL Blood Urea Nitrogen 24 MG/DL 22 MG/DL 17 MG/DL Creatinine 0.94 MG/DL 0.97 MG/DL 0.97 MG/DL Random Glucose 87 MG/DL 86 MG/DL 86 MG/DL Total Protein 6.4 GM/DL 6.1 GM/DL 6.0 GM/DL Albumin 1.5 GM/DL 1.4 GM/DL 1.5 GM/DL Calcium Level 7.0 MG/DL 7.3 MG/DL 6.9 MG/DL Phosphorus Level 2.1 MG/DL 3.5 MG/DL 3.0 MG/DL Magnesium Level 2.2 MG/DL 2.2 MG/DL 2.2 MG/DL Alkaline Phosphatase 150 U/L 134 U/L 138 U/L Aspartate Amino Transf (AST/SGOT) 26 U/L 34 U/L 21 U/L Alanine Aminotransferase (ALT/SGPT) 32 U/L 36 U/L 33 U/L Total Bilirubin 1.2 MG/DL 1.3 MG/DL 1.0 MG/DL Direct Bilirubin 0.8 MG/DL Sodium Level 144 MEQ/L 144 MEQ/L 141 MEQ/L Potassium Level 3.5 MEQ/L 3.2 MEQ/L 3.9 MEQ/L Chloride Level 117 MEQ/L 116 MEQ/L 113 MEQ/L Carbon Dioxide Level 19.0 MEQ/L 17.6 MEQ/L 19.0 MEQ/L Anion Gap 8 MEQ/L 10 MEQ/L 9 MEQ/L Estimat Glomerular Filtration Rate 88 ML/MIN 84 ML/MIN 84 ML/MIN Protein Corrected Calcium 7.4 MG/DL 7.8 MG/DL 7.5 MG/DL Indirect Bilirubin 0.4 MG/DL Neutrophils (%) (Auto) 89.6 % 90.8 % Lymphocytes (%) (Auto) 4.9 % 3.8 % Monocytes (%) (Auto) 4.5 % 4.2 % Eosinophils (%) (Auto) 0.7 % 0.9 % Basophils (%) (Auto) 0.3 % 0.3 % Neutrophils # (Auto) 8.1 TH/MM3 10.7 TH/MM3 Lymphocytes # (Auto) 0.4 TH/MM3 0.5 TH/MM3 Monocytes # (Auto) 0.4 TH/MM3 0.5 TH/MM3 Eosinophils # (Auto) 0.1 TH/MM3 0.1 TH/MM3 Basophils # (Auto) 0.0 TH/MM3 0.0 TH/MM3 CBC Comment DIFF FINAL DIFF FINAL Differential Comment Hemoglobin A1c 5.5 % Free Thyroxine 0.97 NG/DL Thyroid Stimulating Hormone 3rd Gen 2.010 uIU/ML Imaging Last Impressions Chest X-Ray 11/25/16 0600 Signed Impressions: Service Date/Time: Friday, November 25, 2016 02:53 - CONCLUSION: 1. Stable patchy airspace disease and slight interstitial prominence consistent with atypical infection or edema pattern. 2. Stable small right pleural effusion. 1. Checo Leon MD Lumbar Puncture Fluoroscopy 11/21/16 Signed Impressions: Service Date/Time: Wednesday, November 23, 2016 15:08 - CONCLUSION: Uncomplicated fluoroscopically guided lumbar puncture with pressures as above. Horace Kirkland MD Thoracic Spine MRI 11/20/16 Signed Impressions: Service Date/Time: Sunday, November 20, 2016 21:36 - CONCLUSION: 1. No focal abnormality within the thoracic spine. 2. There is edema/inflammatory change seen in the soft tissues to the left of the C7 and T1 spinous processes better seen on the cervical spine MRI examination. 3. Cavitary lesions in the lungs. Manolo Anne MD Lumbar Spine MRI 11/20/16 Signed Impressions: Service Date/Time: Sunday, November 20, 2016 21:36 - CONCLUSION: 1. No areas of significant stenosis. The disc spaces are preserved. 2. Mild facet hypertrophy at the L3-L4 and L4-L5 old. 3. Nonspecific areas of edema within the soft tissues adjacent to the spinous processes throughout the lumbar spine. This can be seen secondary to some dependent edema. Inflammatory change cannot be excluded. It does appear fairly symmetric when comparing right to left. 4. Ascites. Manolo Anne MD Chest CT 11/20/16 Signed Impressions: Service Date/Time: Sunday, November 20, 2016 11:30 - CONCLUSION: Deterioration in the appearance of the chest with increasing size of nodules and consolidation. Worsening of an inflammatory process is suspected. Michael Youssef MD FACR Cervical Spine MRI 11/20/16 Signed Impressions: Service Date/Time: Sunday, November 20, 2016 21:36 - CONCLUSION: 1. 2.4 cm vague area of edema seen to the left of the spinous processes of C7 and T1 concerning for focal inflammatory/infectious change. The spinous processes themselves demonstrate normal signal. 2. Suspected hemangioma at the C7 vertebral body. 3. Fluid in the nasopharynx, oropharynx and hypopharynx. There is an NG tube and ET tube in place. Manolo Anne MD Brain MRI 11/20/16 Signed Impressions: Service Date/Time: Sunday, November 20, 2016 21:36 - CONCLUSION: 1. Abnormal gyriform signal abnormality in the left frontal and parietal regions associated with some minimally increased signal on the diffusion weighted images. Findings are nonspecific. Differential diagnosis includes an area of meningitis or leptomeningeal spread of tumor given history of malignancy. Infarction less likely. No associated mass effect. Recommend further evaluation with MRI brain with contrast to assess for abnormal meningeal enhancement. Bruno Cleaning MD Abdomen/Pelvis CT 11/20/16 0000 Signed Impressions: Service Date/Time: Sunday, November 20, 2016 11:30 - CONCLUSION: Significant aeration appearance of the lungs. Generalized anasarca, negative for abscess. Adults abdominal abscess. Michael Youssef MD FACR Renal Ultrasound 11/15/16 0000 Signed Impressions: Service Date/Time: Tuesday, November 15, 2016 10:26 - CONCLUSION: Normal examination. Katie Nevarez MD Objective Remarks GENERAL: AWAKE ALERT AND ORIENTED X3 SKIN: Warm and dry.TATTOOS HEAD: Atraumatic. Normocephalic. EYES: Pupils equal and round. No scleral icterus. No injection or drainage. EOMI ENT: No nasal bleeding or discharge. Mucous membranes pink and moist. TONGUE IS MIDLINE NECK: Trachea midline. No JVD. SUPPLE CARDIOVASCULAR: Regular rate and rhythm. S1, S2 NO S3 OR S4 POSITIVE MURMUR RESPIRATORY: No accessory muscle use. COARSE BREATH SOUNDS BL. Breath sounds equal bilaterally. GASTROINTESTINAL: Abdomen soft, non-tender, nondistended. Hepatic and splenic margins not palpable. MUSCULOSKELETAL: Extremities without clubbing, cyanosis, or edema. No obvious deformities. NEUROLOGICAL: Awake and alert. No obvious cranial nerve deficits. Motor grossly within normal limits. 4 out of 5 muscle strength in the arms and legs. Normal speech. PSYCHIATRIC: SLIGHTLY INAppropriate mood and affect; insight and judgment ABnormal. Procedures SP VDRF SP LP Medications and IVs Current Medications Acetaminophen (Tylenol) 650 mg ONCE ONCE PO Last administered on 11/15/16 07: 40; Start 11/15/16 at 07:30; Stop 11/15/16 at 07:31; Status DC Ondansetron HCl (Zofran Inj) 4 mg ONCE ONCE IV Last administered on 11/15/16 07:40; Start 11/15/16 at 07:30; Stop 11/15/16 at 07:31; Status DC Sodium Chloride 1,000 ml @ 1,000 mls/hr Q1H ONCE IV Last administered on 07:40; Start 11/15/16 at 07:24; Stop 11/15/16 at 08:23; Status DC Sodium Chloride 1,000 ml @ 1,000 mls/hr Q1H ONCE IV Last administered on 07:40; Start 11/15/16 at 07:24; Stop 11/15/16 at 08:23; Status DC Sodium Chloride 100 ml @ 1,000 mls/hr Q6M ONCE IV Last administered on 07:40; Start 11/15/16 at 07:24; Stop 11/15/16 at 07:29; Status DC Cefepime HCl 2000 mg/Sodium Chloride 100 ml @ 200 mls/hr ONCE ONCE IV Last administered on 11/15/16 08:53; Start 11/15/16 at 07:45; Stop 11/15/16 at 08:14 ; Status DC Azithromycin 500 mg/Sodium Chloride 250 ml @ 250 mls/hr ONCE ONCE IV Last administered on 11/15/16 07:48; Start 11/15/16 at 07:45; Stop 11/15/16 at 08:44 ; Status DC Albuterol/ Ipratropium (Duoneb Neb) 2 ampule ONCE ONCE NEB Last administered on 11/15/16 07:58; Start 11/15/16 at 08:00; Stop 11/15/16 at 08:01; Status DC Potassium Chloride (KCl) 20 meq ONCE ONCE PO ; Start 11/15/16 at 08:30; Stop at 08:31; Status DC Potassium Chloride 100 ml @ 50 mls/hr Q2H IV Last administered on 11/15/16 17 :03; Start 11/15/16 at 08:30; Stop 11/15/16 at 12:29; Status DC Morphine Sulfate (Morphine Inj) 2 mg ONCE ONCE IV PUSH Last administered on 08:53; Start 11/15/16 at 08:45; Stop 11/15/16 at 08:46; Status DC Pantoprazole Sodium (Protonix Inj) 40 mg DAILY IV Last administered on 09:00; Start 11/15/16 at 10:00 Albuterol/ Ipratropium (Duoneb Neb) 1 ampule Q6HR NEB INH Last administered on 11/19/16 03:16; Start 11/15/16 at 10:00; Stop 11/19/16 at 07:58; Status DC Ipratropium [place] (Atrovent Neb) 0.5 mg Q2HR NEB PRN INH WHEEZING Last administered on 11/18/16 01:12; Start 11/15/16 at 09:00; Stop 11/24/16 at 14:44 ; Status DC Miscellaneous Information 1 [id number] XX ; Start 11/15/16 at 09:00 Chlorhexidine Gluconate (Chlorhexidine 2% Cloth) Taper DAILY@04 TOP Last administered on 11/26/16 03:13; Start 11/16/16 at 04:00; Stop 11/12/17 at 03:59 Chlorhexidine Gluconate (Chlorhexidine 2% Cloth) 3 pack UNSCH PRN TOP HYGIENIC CARE; Start 11/15/16 at 09:00 Senna/Docusate Sodium (Marina-Colace) 1 tab BID PO Last administered on 11/22/16 21:52; Start 11/15/16 at 11:00; Stop 11/23/16 at 11:41; Status DC Magnesium Hydroxide (Milk Of Magnesia Liq) 30 ml Q12H PRN PO MILD - MODERATE CONSTIPATION; Start 11/15/16 at 09:00 Sennosides (Senokot) 17.2 mg Q12H PRN PO MODERATE - SEVERE CONSTIPATION; Start 11/15/16 at 09:00 Bisacodyl (Dulcolax Supp) 10 mg DAILY PRN RECTAL SEVERE CONSITIPATION; Start at 09:00 Lactulose (Lactulose Liq) 30 ml DAILY PRN PO SEVERE CONSITIPATION; Start at 09:00 Dextrose (D50w (Vial) Inj) 50 ml UNSCH PRN IV HYPOGLYCEMIA-SEE COMMENTS; Start 11/15/16 at 09:45 Glucagon (Glucagon Inj) 1 mg UNSCH PRN OTHER HYPOGLYCEMIA-SEE COMMENTS; Start 11/15/16 at 09:45 Insulin Human Regular (NovoLIN R SUPPLEMENTAL SCALE) 1 Q6H SQ Last administered on 11/21/16 22:24; Start 11/15/16 at 11:00 Sodium Chloride 1,000 ml @ 75 mls/hr [id number] IV Last administered on 11:37; Start 11/15/16 at 09:45; Stop 11/17/16 at 10:14; Status DC Vancomycin HCl 1000 mg/Sodium Chloride 250 ml @ 250 mls/hr ONCE ONCE IV Last administered on 11/15/16 10:27; Start 11/15/16 at 10:00; Stop 11/15/16 at 10:59 ; Status DC Piperacillin Sod/ Tazobactam Sod 50 ml @ 100 mls/hr Q6H IV Last administered on 11/16/16 11:37; Start 11/15/16 at 12:00; Stop 11/16/16 at 13:33; Status DC Azithromycin 500 mg/Sodium Chloride 250 ml @ 250 mls/hr Q24H IV ; Start at 08:00; Stop 11/16/16 at 08:00; Status DC Pharmacy Profile Note 0 ml @ 0 mls/hr UNSCH OTHER ; Start 11/15/16 at 10:00; Stop 11/17/16 at 11:03; Status DC Sodium Chloride 1,000 ml @ 999 mls/hr BOLUS ONCE IV Last administered on 11/15 15:16; Start 11/15/16 at 13:00; Stop 11/15/16 at 14:00; Status DC Oxycodone/ Acetaminophen (Percocet 5-325 Mg) 1 tab Q6H PRN PO pain; Start at 12:15; Stop 11/15/16 at 13:02; Status DC Hydromorphone HCl (Dilaudid Pf Inj) 1 mg Q3H PRN IV PUSH PAIN 1 TO 10 AND/OR AGITATION Last administered on 11/18/16 00:54; Start 11/15/16 at 13:00; Stop at 05:48; Status DC Oxycodone/ Acetaminophen (Percocet 5-325 Mg) 1 tab Q4H PRN PO PAIN 1-10 Last administered on 11/18/16 00:54; Start 11/15/16 at 13:00; Stop 11/18/16 at 05:48 ; Status DC Ondansetron HCl (Zofran Inj) 4 mg Q8H PRN IV PUSH NAUSEA OR VOMITING Last administered on 11/24/16 13:07; Start 11/15/16 at 13:15 Diltiazem HCl (Cardizem) 60 mg Q6HR PO Last administered on 11/17/16 23:39; Start 11/16/16 at 08:15; Stop 11/18/16 at 05:48; Status DC Vancomycin HCl 1250 mg/Sodium Chloride 262.5 ml @ 262.5 mls/ hr Q18H IV Last administered on 11/17/16 08:01; Start 11/16/16 at 14:00; Stop 11/17/16 at 11:03 ; Status DC Miscellaneous Information SPECIFIC LAB TO BE CONSTANTINO... ONCE ONCE .XX ; Start 11/18 at 19:45; Stop 11/18/16 at 19:46; Status Cancel Piperacillin Sod/ Tazobactam Sod 50 ml @ 100 mls/hr Q8H IV Last administered on 11/17/16 05:06; Start 11/16/16 at 20:00; Stop 11/17/16 at 07:33; Status DC Potassium Chloride 100 ml @ 50 mls/hr Q2H PRN IV For Potassium 2.8 - 3.2 mEq/L ; Start 11/17/16 at 10:15; Stop 11/18/16 at 06:12; Status DC Potassium Chloride 100 ml @ 50 mls/hr Q2H PRN IV For Potassium 2.8 - 3.2 mEq/ L Last administered on 11/17/16 15:13; Start 11/17/16 at 10:15; Stop 11/18/16 at 06:12; Status DC Potassium Bicarb/ Potassium Chloride (K-Lyte Cl Eff) 50 meq UNSCH PRN PO For Potassium 3.3 - 3.5 mEq/L; Start 11/17/16 at 10:15; Stop 11/18/16 at 06:12; Status DC Potassium Chloride 100 ml @ 25 mls/hr UNSCH PRN IV For Potassium 3.3 - 3.5 mEq /L; Start 11/17/16 at 10:15; Stop 11/18/16 at 06:12; Status DC Potassium Chloride 100 ml @ 50 mls/hr Q2H PRN IV For Potassium 3.3 - 3.5 mEq/ L Last administered on 11/17/16 17:30; Start 11/17/16 at 10:15; Stop 11/18/16 at 06:12; Status DC Magnesium Sulfate 4 gm/Sodium Chloride 100 ml @ 50 mls/hr UNSCH PRN IV For Magnesium 0.9 - 1.1 mg/dL; Start 11/17/16 at 10:15; Stop 11/18/16 at 06:12; Status DC Magnesium Oxide (Mag-Ox) 800 mg UNSCH PRN PO For Magnesium 1.2 - 1.6 mg/dL; Start 11/17/16 at 10:15; Stop 11/18/16 at 06:12; Status DC Magnesium Sulfate 2 gm/Sodium Chloride 100 ml @ 50 mls/hr UNSCH PRN IV For Magnesium 1.2 - 1.6 mg/dL; Start 11/17/16 at 10:15; Stop 11/18/16 at 06:12; Status DC Potassium Phosphate (K-Phos) 2,000 mg Q4H PRN PO For Phosphorus < 2.5 mg/dL; Start 11/17/16 at 10:15; Stop 11/18/16 at 06:12; Status DC Sodium Phosphate 30 mmol/Sodium Chloride 250 ml @ 42 mls/hr UNSCH PRN IV For Phosphorus < 2.5 mg/dL; Start 11/17/16 at 10:15; Stop 11/18/16 at 06:12; Status DC Potassium Phosphate (K-Phos) 2,000 mg UNSCH PRN PO/TUBE SEE LABEL COMMENTS; Start 11/17/16 at 10:15; Stop 11/18/16 at 06:12; Status DC Potassium Phosphate 30 mmol/ Sodium Chloride 260 ml @ 42 mls/hr UNSCH PRN IV SEE LABEL COMMENTS; Start 11/17/16 at 10:15; Stop 11/18/16 at 06:12; Status DC Bumetanide (Bumex Inj) 1 mg ONCE ONCE IV PUSH Last administered on 11/17/16 11:13; Start 11/17/16 at 10:15; Stop 11/18/16 at 01:32; Status DC Daptomycin 590 mg/ Sodium Chloride 100 ml @ 200 mls/hr Q24H IV Last administered on 11/27/16 12:36; Start 11/17/16 at 12:00 Rifampin (Rifampin) 150 mg Q12HR PO Last administered on 11/24/16 21:03; Start 11/17/16 at 21:00; Stop 11/25/16 at 11:11; Status DC Bumetanide (Bumex Inj) 1 mg ONCE ONCE IV PUSH ; Start 11/18/16 at 01:30; Stop 11/18/16 at 01:32; Status DC Methylprednisolone Sodium Succinate (SoluMEDROL INJ) 80 mg ONCE ONCE IM Last administered on 11/18/16 04:17; Start 11/18/16 at 01:30; Stop 11/18/16 at 01:31 ; Status DC Etomidate (Amidate Inj) 20 mg ONCE ONCE IV PUSH Last administered on 01:54; Start 11/18/16 at 01:30; Stop 11/18/16 at 01:31; Status DC Succinylcholine Chloride (Quelicin Inj) 100 mg ONCE ONCE IV PUSH Last administered on 11/18/16 01:54; Start 11/18/16 at 01:30; Stop 11/18/16 at 01:32 ; Status DC Propofol 100 ml @ 2.193 mls/ hr Q24H PRN IV SEDATION Last administered on 12:10; Start 11/18/16 at 01:27; Stop 11/19/16 at 16:48; Status DC Fentanyl Citrate 250 ml @ 5 mls/hr Q24H PRN IV SEDATION Last administered on 21:16; Start 11/18/16 at 01:27; Stop 11/19/16 at 16:41; Status DC Midazolam HCl 100 ml @ 2 mls/hr Q24H PRN IV SEDATION Last administered on 01:55; Start 11/18/16 at 01:27; Stop 11/23/16 at 11:41; Status DC Etomidate (Amidate Inj) 20 mg STK-MED ONCE .ROUTE ; Start 11/18/16 at 01:30; Stop 11/18/16 at 01:31; Status DC Propofol 100 ml @ As Directed STK-MED ONCE .ROUTE ; Start 11/18/16 at 01:32; Stop 11/18/16 at 01:33; Status DC Potassium Chloride 100 ml @ 50 mls/hr Q2H PRN IV For Potassium 2.8 - 3.2 mEq/L ; Start 11/18/16 at 02:15; Stop 11/18/16 at 06:12; Status DC Potassium Chloride 100 ml @ 50 mls/hr Q2H PRN IV For Potassium 2.8 - 3.2 mEq/L ; Start 11/18/16 at 02:15; Stop 11/18/16 at 06:12; Status DC Potassium Bicarb/ Potassium Chloride (K-Lyte Cl Eff) 50 meq UNSCH PRN PO For Potassium 3.3 - 3.5 mEq/L; Start 11/18/16 at 02:15; Stop 11/18/16 at 06:12; Status DC Potassium Chloride 100 ml @ 25 mls/hr UNSCH PRN IV For Potassium 3.3 - 3.5 mEq /L; Start 11/18/16 at 02:15; Stop 11/18/16 at 06:12; Status DC Potassium Chloride 100 ml @ 50 mls/hr Q2H PRN IV For Potassium 3.3 - 3.5 mEq/L ; Start 11/18/16 at 02:15; Stop 11/18/16 at 06:12; Status DC Magnesium Sulfate 4 gm/Sodium Chloride 100 ml @ 50 mls/hr UNSCH PRN IV For Magnesium 0.9 - 1.1 mg/dL; Start 11/18/16 at 02:15; Stop 11/18/16 at 06:12; Status DC Magnesium Oxide (Mag-Ox) 800 mg UNSCH PRN PO For Magnesium 1.2 - 1.6 mg/dL; Start 11/18/16 at 02:15; Stop 11/18/16 at 06:12; Status DC Magnesium Sulfate 2 gm/Sodium Chloride 100 ml @ 50 mls/hr UNSCH PRN IV For Magnesium 1.2 - 1.6 mg/dL; Start 11/18/16 at 02:15; Stop 11/18/16 at 06:12; Status DC Potassium Phosphate (K-Phos) 2,000 mg Q4H PRN PO For Phosphorus < 2.5 mg/dL; Start 11/18/16 at 02:15; Stop 11/18/16 at 06:12; Status DC Sodium Phosphate 30 mmol/Sodium Chloride 250 ml @ 42 mls/hr UNSCH PRN IV For Phosphorus < 2.5 mg/dL; Start 11/18/16 at 02:15; Stop 11/18/16 at 06:12; Status DC Potassium Phosphate (K-Phos) 2,000 mg UNSCH PRN PO/TUBE SEE LABEL COMMENTS; Start 11/18/16 at 02:15; Stop 11/18/16 at 06:12; Status DC Potassium Phosphate 30 mmol/ Sodium Chloride 260 ml @ 42 mls/hr UNSCH PRN IV SEE LABEL COMMENTS; Start 11/18/16 at 02:15; Stop 11/18/16 at 06:12; Status DC Sodium Bicarbonate 150 meq/Dextrose 1,150 ml @ 75 mls/hr [id number] IV Last administered on 11/18/16 04:17; Start 11/18/16 at 03:45; Stop 11/18/16 at 05:48 ; Status DC Sodium Chloride 1,000 ml @ 999 mls/hr BOLUS ONCE IV Last administered on 11/18 04:18; Start 11/18/16 at 03:45; Stop 11/18/16 at 04:45; Status DC Norepinephrine Bitartrate 4 mg/ Sodium Chloride 250 ml @ 7.5 mls/hr TITRATE PRN IV Blood pressure management Last administered on 11/18/16 01:55; Start at 03:45; Stop 11/18/16 at 07:51; Status DC Terbutaline Sulfate (Brethine Inj) 1 mg UNSCH PRN SQ For Extravasation; Start 11/18/16 at 03:45 Sodium Chloride 1,000 ml @ 100 mls/hr Q10H IV Last administered on 11/18/16 04:31; Start 11/18/16 at 04:30; Stop 11/18/16 at 05:48; Status DC Norepinephrine Bitartrate 4 mg/ Sodium Chloride 250 ml @ 7.5 mls/hr TITRATE PRN IV Blood pressure management; Start 11/18/16 at 05:30; Stop 11/18/16 at 06: 30; Status DC Vasopressin 40 units/Dextrose 100 ml @ 6 mls/hr [id number] IV ; Start 11/18/16 at 05:25; Stop 11/18/16 at 06:14; Status DC Bumetanide (Bumex Inj) 1 mg Q6H IV PUSH Last administered on 8/30/17at 17:18; Start 11/18/16 at 06:00; Stop 11/20/16 at 08:02; Status DC Magnesium Oxide (Mag-Ox) 800 mg UNSCH PRN PO For Magnesium 1.2 - 1.6 mg/dL; Start 11/18/16 at 06:00; Stop 11/19/16 at 14:59; Status DC Magnesium Sulfate 4 gm/Sodium Chloride 100 ml @ 50 mls/hr UNSCH PRN IV For Magnesium 0.9 - 1.1 mg/dL; Start 11/18/16 at 06:00; Stop 11/19/16 at 14:59; Status DC Magnesium Sulfate 2 gm/Sodium Chloride 100 ml @ 50 mls/hr UNSCH PRN IV For Magnesium 1.2 - 1.6 mg/dL; Start 11/18/16 at 06:00; Stop 11/19/16 at 14:59; Status DC Potassium Chloride 100 ml @ 50 mls/hr Q2H PRN IV For Potassium 2.8 - 3.2 mEq/L ; Start 11/18/16 at 06:00; Stop 11/19/16 at 14:59; Status DC Potassium Chloride 100 ml @ 50 mls/hr Q2H PRN IV For Potassium 3.3 - 3.5 mEq/L ; Start 11/18/16 at 06:00; Stop 11/19/16 at 14:59; Status DC Potassium Chloride 100 ml @ 50 mls/hr Q2H PRN IV For Potassium 2.8 - 3.2 mEq/L ; Start 11/18/16 at 06:00; Stop 11/19/16 at 14:59; Status DC Potassium Chloride 100 ml @ 25 mls/hr UNSCH PRN IV For Potassium 3.3 - 3.5 mEq /L; Start 11/18/16 at 06:00; Stop 11/19/16 at 14:59; Status DC Potassium Phosphate (K-Phos) 2,000 mg Q4H PRN PO For Phosphorus < 2.5 mg/dL; Start 11/18/16 at 06:00; Stop 11/19/16 at 14:59; Status DC Potassium Phosphate (K-Phos) 2,000 mg UNSCH PRN PO/TUBE SEE LABEL COMMENTS; Start 11/18/16 at 06:00; Stop 11/19/16 at 14:59; Status DC Potassium Phosphate 30 mmol/ Sodium Chloride 260 ml @ 42 mls/hr UNSCH PRN IV SEE LABEL COMMENTS; Start 11/18/16 at 06:00; Stop 11/19/16 at 14:59; Status DC Sodium Phosphate 30 mmol/Sodium Chloride 250 ml @ 42 mls/hr UNSCH PRN IV For Phosphorus < 2.5 mg/dL; Start 11/18/16 at 06:00; Stop 11/19/16 at 14:59; Status DC Vasopressin 40 units/Dextrose 100 ml @ 1.5 mls/hr Q24H IV Last administered on 11/20/16 08:47; Start 11/18/16 at 05:54; Stop 11/23/16 at 11:41; Status DC Norepinephrine Bitartrate 16 mg/ Sodium Chloride 250 ml @ 7.5 mls/hr TITRATE PRN IV Blood pressure management; Start 11/18/16 at 06:45; Status Cancel Norepinephrine Bitartrate 16 mg/ Sodium Chloride 250 ml @ 1.87 mls/hr TITRATE PRN IV Maintain MAP > 65 mmHg Last administered on 11/19/16 07:52; Start at 06:45; Stop 11/25/16 at 09:52; Status DC Piperacillin Sod/ Tazobactam Sod 100 ml @ 200 mls/hr Q8H IV Last administered on 11/21/16 08:50; Start 11/18/16 at 08:00; Stop 11/21/16 at 10:28; Status DC Ceftaroline Fosamil 600 mg/ Sodium Chloride 100 ml @ 100 mls/hr Q8H IV Last administered on 11/19/16 09:02; Start 11/18/16 at 09:00; Stop 11/19/16 at 11:03 ; Status DC Bumetanide (Bumex Inj) 1 mg ONCE ONCE IV PUSH Last administered on 11/18/16 10:06; Start 11/18/16 at 10:00; Stop 11/18/16 at 10:01; Status DC Sodium Chloride 1,000 ml @ 100 mls/hr Q10H IV Last administered on 11/18/16 08:00; Start 11/18/16 at 10:00; Stop 11/18/16 at 19:31; Status DC Bumetanide 100 ml @ 4 mls/hr Q24H IV ; Start 11/18/16 at 18:13; Status Cancel Bumetanide 100 ml @ 4 mls/hr Q24H IV Last administered on 11/19/16 23:17; Start 11/18/16 at 19:00; Stop 11/20/16 at 17:02; Status DC Albuterol/ Ipratropium (Duoneb Neb) 1 ampule Q6HR NEB INH Last administered on 11/23/16 08:16; Start 11/19/16 at 10:00; Stop 11/23/16 at 09:59; Status DC Chlorothiazide Sodium (Diuril Inj) 500 mg ONCE ONCE IV Last administered on 10:03; Start 11/19/16 at 09:15; Stop 11/19/16 at 09:16; Status DC Acetazolamide Sodium (Diamox Inj) 500 mg ONCE ONCE IV PUSH Last administered on 11/19/16 10:03; Start 11/19/16 at 09:15; Stop 11/19/16 at 09:16; Status DC Spironolactone (Aldactone) 25 mg ONCE ONCE PO Last administered on 11/19/16 10:03; Start 11/19/16 at 09:00; Stop 11/19/16 at 09:02; Status DC Ceftaroline Fosamil 400 mg/ Sodium Chloride 100 ml @ 100 mls/hr Q8H IV Last administered on 11/21/16 00:51; Start 11/19/16 at 17:00; Stop 11/21/16 at 10:53; Status DC Fentanyl Citrate 250 ml @ 5 mls/hr TITRATE PRN IV Sedation Last administered on 11/24/16 06:41; Start 11/19/16 at 17:00; Stop 11/24/16 at 11:53; Status DC Propofol 100 ml @ 2.427 mls/ hr TITRATE PRN IV SEDATION Last administered on 08:50; Start 11/19/16 at 17:00; Stop 11/21/16 at 12:09; Status DC Chlorothiazide Sodium (Diuril Inj) 500 mg ONCE ONCE IV ; Start 11/20/16 at 06:30 ; Stop 11/20/16 at 08:23; Status DC Albumin Human (Albumin 25% Inj) 25 gm ONCE ONCE IV ; Start 11/20/16 at 06:30; Stop 11/20/16 at 06:31; Status DC Sodium Bicarbonate (Sodium Bicarbonate 8.4% Inj) 100 meq ONCE ONCE IV PUSH Last administered on 11/20/16 09:46; Start 11/20/16 at 09:45; Stop 11/20/16 at 09: 46; Status DC Bumetanide 100 ml @ 2 mls/hr Q24H IV Last administered on 11/20/16 18:00; Start 11/20/16 at 18:00; Stop 11/22/16 at 07:24; Status DC Ceftaroline Fosamil 400 mg/ Sodium Chloride 100 ml @ 100 mls/hr Q8H IV Last administered on 11/26/16 11:59; Start 11/21/16 at 11:00; Stop 11/26/16 at 13:53; Status DC Propofol 100 ml @ 2.19 mls/hr TITRATE PRN IV SEDATION Last administered on 11/24 04:33; Start 11/21/16 at 12:15; Stop 11/24/16 at 11:53; Status DC Acyclovir Sodium 730 mg/Sodium Chloride 150 ml @ 150 mls/hr Q8H IV Last administered on 11/24/16 04:50; Start 11/21/16 at 14:00; Stop 11/24/16 at 11:32; Status DC Midazolam HCl (Versed Inj) 2 mg ONCE ONCE IV PUSH Last administered on 16:39; Start 11/21/16 at 16:30; Stop 11/21/16 at 16:31; Status DC Water (Free Water) 300 ml Q6HR G-TUBE Last administered on 11/23/16 00:00; Start 11/22/16 at 07:30; Stop 11/23/16 at 07:23; Status DC Potassium Chloride 100 ml @ 25 mls/hr BOLUS ONCE IV Last administered on 08:16; Start 11/22/16 at 08:00; Stop 11/22/16 at 11:59; Status DC Acetaminophen (Tylenol) 650 mg Q6H PRN PO fever Last administered on 11/23/16 12:09; Start 11/22/16 at 11:45 Potassium Chloride 100 ml @ 50 mls/hr BOLUS ONCE IV Last administered on 14:40; Start 11/22/16 at 15:00; Stop 11/22/16 at 16:59; Status DC Potassium Chloride 100 ml @ 25 mls/hr Q4H IV Last administered on 11/23/16 01: 36; Start 11/22/16 at 23:15; Stop 11/23/16 at 07:14; Status DC Sodium Chloride 250 ml @ 15 mls/hr ONCE ONCE IV ; Start 11/22/16 at 23:15; Stop 11/23/16 at 15:54; Status DC Water (Free Water) 300 ml Q4HR G-TUBE Last administered on 11/24/16 03:51; Start 11/23/16 at 08:00; Stop 11/25/16 at 09:52; Status DC Dextrose 1,000 ml @ 84 mls/hr [id number] IV Last administered on 11/24/16 06:42; Start 11/23/16 at 08:00; Stop 11/24/16 at 11:53; Status DC Albuterol/ Ipratropium (Duoneb Neb) 1 ampule Q6HR NEB NEB Last administered on 11/24/16 08:09; Start 11/23/16 at 12:00; Stop 11/24/16 at 14:44; Status DC Potassium Chloride 100 ml @ 50 mls/hr Q2H PRN IV For Potassium 2.8 - 3.2 mEq/ L Last administered on 11/24/16 12:17; Start 11/24/16 at 07:30; Stop 11/26/16 at 10:46; Status DC Potassium Chloride 100 ml @ 50 mls/hr Q2H PRN IV For Potassium 2.8 - 3.2 mEq/L ; Start 11/24/16 at 07:30; Stop 11/26/16 at 10:46; Status DC Potassium Bicarb/ Potassium Chloride (K-Lyte Cl Eff) 50 meq UNSCH PRN PO For Potassium 3.3 - 3.5 mEq/L; Start 11/24/16 at 07:30; Stop 11/26/16 at 10:46; Status DC Potassium Chloride 100 ml @ 25 mls/hr UNSCH PRN IV For Potassium 3.3 - 3.5 mEq /L; Start 11/24/16 at 07:30; Stop 11/26/16 at 10:46; Status DC Potassium Chloride 100 ml @ 50 mls/hr Q2H PRN IV For Potassium 3.3 - 3.5 mEq/ L Last administered on 11/25/16 07:00; Start 11/24/16 at 07:30; Stop 11/26/16 at 10:46; Status DC Magnesium Sulfate 4 gm/Sodium Chloride 100 ml @ 50 mls/hr UNSCH PRN IV For Magnesium 0.9 - 1.1 mg/dL; Start 11/24/16 at 07:30; Stop 11/26/16 at 10:46; Status DC Magnesium Oxide (Mag-Ox) 800 mg UNSCH PRN PO For Magnesium 1.2 - 1.6 mg/dL; Start 11/24/16 at 07:30; Stop 11/26/16 at 10:46; Status DC Magnesium Sulfate 2 gm/Sodium Chloride 100 ml @ 50 mls/hr UNSCH PRN IV For Magnesium 1.2 - 1.6 mg/dL; Start 11/24/16 at 07:30; Stop 11/26/16 at 10:46; Status DC Potassium Phosphate (K-Phos) 2,000 mg Q4H PRN PO For Phosphorus < 2.5 mg/dL Last administered on 11/26/16 09:36; Start 11/24/16 at 07:30; Stop 11/26/16 at 10: 46; Status DC Sodium Phosphate 30 mmol/Sodium Chloride 250 ml @ 42 mls/hr UNSCH PRN IV For Phosphorus < 2.5 mg/dL; Start 11/24/16 at 07:30; Stop 11/26/16 at 10:46; Status DC Potassium Phosphate (K-Phos) 2,000 mg UNSCH PRN PO/TUBE SEE LABEL COMMENTS; Start 11/24/16 at 07:30; Stop 11/26/16 at 10:46; Status DC Potassium Phosphate 30 mmol/ Sodium Chloride 260 ml @ 42 mls/hr UNSCH PRN IV SEE LABEL COMMENTS; Start 11/24/16 at 07:30; Stop 11/26/16 at 10:46; Status DC Albuterol/ Ipratropium (Duoneb Neb) 1 ampule Q4HR NEB NEB Last administered on 11/28/16 08:16; Start 11/24/16 at 12:00 Albuterol/ Ipratropium (Duoneb Neb) 1 ampule Q2HR NEB PRN NEB SHORTNESS OF BREATH; Start 11/24/16 at 12:00 Acetaminophen/ Hydrocodone Bitart ([place] 10-325 Mg) 1 tab Q4H PRN PO PAIN SCALE 4 TO 10 Last administered on 11/28/16 08:58; Start 11/25/16 at 02:45 Zolpidem Tartrate (Ambien) 10 mg HS PRN PO insomnia Last administered on 23:14; Start 11/25/16 at 02:45 Guaifenesin (Mucinex Er) 600 mg BID PO Last administered on 11/28/16 08:59; Start 11/26/16 at 09:00 Calcium Chloride 1 gm/Sodium Chloride 100 ml @ 100 mls/hr ONCE ONCE IV Last administered on 11/26/16 11:59; Start 11/26/16 at 10:45; Stop 11/26/16 at 11:44; Status DC Calcium Carbonate (Oscal) 1,000 mg BID PO Last administered on 11/27/16 20:45; Start 11/26/16 at 11:00 Potassium Chloride (KCl) 40 meq Q12HR PO Last administered on 11/28/16 11:05; Start 11/27/16 at 12:15 Urinary Catheter: No A/P Assessment and Plan Assessment and Plan Assessment: 45yM with 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 continues to be critically ill, ongoing shock and renal failure. Recently extubated 11/24. Pending evaluation cerebritis versus meningeal carcinomatosis. Prognosis guarded NO LONGER IN SHOCK Plan Neuro: Metabolic encephalopathy-resolved - GCS 15 -UDS: Opiates, Cocaine 11/23 s/p LP showed clear CSF, normal protein and glc, 10 WBC. Follow up on CSF cx and Cytology. 11/20: MRI brain: Abnormal gyriform signal abnormality in the left frontal and parietal regions associated with some minimally increased signal on the diffusion weighted images.ddx meningitis or leptomeningeal spread of tumor given history of malignancy. Neuro is following 11/20: Cervical CT: 2.4 cm vague area of edema seen to the left of the spinous processes of C7 and T1 concerning for focal inflammatory/infectious change. The spinous processes themselves demonstrate normal signal.. Suspected hemangioma at the C7 vertebral body 11/21 EEG: Encephalopathy, no epileptiform features. Pulm: Acute hypoxic and hypercarbic respiratory failure Septic pulmonary emboli Pulmonary Edema Severe ARDS - intubated 11/18 for worsening hypoxemia. Extubated 11/24 - Continue with vent support keep sat >92%. On PRVC RR 16, TV 550, IT;1.0, PEEP:5, FIO2 45% -Bronchodilators every 4 hours when necessary -CXR 11/25: Improving, small right bilateral pleural effusion -repeat CT chest 11/20: increasing size of nodules and consolidation. - 11/15 CT chest showed cavitary and irregular nodules throughout the lungs bilaterally. CV: Septic Shock Congestive Heart Failure Exacerbation secondary to valvulopathy Severe tricuspid regurgitation Pulmonary Edema -Monitor HR and BP keep MAP>65mmHg - Echo showed EF 50-55%, +Vegetations on TV, severe TR : RACHEL Intravascular volume overload Hypernatremia..improving - Monitor renal function, I/O's, avoid nephrotoxins, place on electrolytes replacement protocol. Will need K replacement today. -Monitor sodium level, encourage free water intake Renal function improving with Cr: 0.9 today from 1.29 - Renal US 11/15: Unremarkable. Renal signed off 11/24- Dr. Gillis FEN/GI: Acute protein calorie malnutrition- moderate Anion-gap metabolic acidosis Intravascular volume overload Colon cancer on radiation treatment Hepatitis C THROMBOCYTOPENIA CHRONIC Speech evaluation- Mechanical soft with thin liquids Protonix 40mg IV daily for GI prophylaxis ID: MRSA Tricuspid Valve infective endocarditis s/p Septic Shock - ID on board - Continue abx per ID ( On daptomycin, Rifampin, Teflaro) monitor CK's. -s/p LP 11/23: Clear CSF, 10 WBC, normal protein and glc. Follow up on CSF cx and Cytology - Echo showed vegetations on TV. - 11/15, 11/16, 09/17 BC: MRSA, 11/18 BC: MRSA - 11/15 Urine cx: MRSA, 11/18 sputum: MRSA -BC 11/20,11/21,11/22, 11/23: NGTD Heme: Anemia secondary to chronic illness Thrombocytopenia secondary to hepatic dysfunction THROMBOCYTOPENIA - Monitor CBC - Patient s/p transfusion 3 units PRBC total on 11/22, stool Hemoccult negative -Continue to monitor LFTs Endo: Hyperglycemia of critical illness - SSI with Accu-Cheks for glycemic control.- STOP ACCUCHECKS GI prophylaxis with Protonix 40 milligrams daily and DVT prophylaxis with SCDs. Not on chemical anticoagulation prophylaxis due to thrombocytopenia. Lines: Right subclavian CVP placed 11/18- 11/24, peripheral IV's. AM LABS TRANSFER OUT OF ICU PT AND OT CASE MANAGEMENT FOR DC PLANNING HYPOKALEMIA REPLACE Discharge Planning WILL NEED IV ANTIBIOTICS AT DC Michael Hayden DO Nov 28, 2016 11:50
[2016-11-28] MEDS: DAPTOMYCIN IV SCH (12:36)
[2016-11-28] MEDS: SODIUM CHLORIDE 0.9% IV SCH (12:36)
[2016-11-28] MEDS ORDERED: CALCIUM CHLORIDE INJ 1 GM in SODIUM CHLORIDE 0.9% INJ 90 ML IV ONE (14:00)
[2016-11-29] VITALS (9 sets, daily range): BP systolic 128–144; BP diastolic 81–93; PULSE 88–104; RESP 16–20; TEMP 98.3–98.6; O2SAT 94–98
[2016-11-29] MEDS: CHLORHEXIDINE GLUCONATE 2 % 1 PACK (2 CLOTHS) TOP SCH (03:56)
[2016-11-29] MEDS: ACETAMINOPHEN/HYDROcodone 325 MG/10 MG TAB PO PRN ×4 (05:33→21:37)
[2016-11-29] MEDS: PANTOPRAZOLE SODIUM 40 MG VIAL IV SCH (08:16)
[2016-11-29] MEDS: CALCIUM CARBONATE 1.25 GM (CA 500 MG) TAB PO SCH ×2 (08:16→20:41)
[2016-11-29] MEDS: guaiFENesin E.R. 600 MG TAB PO SCH ×2 (08:17→20:42)
[2016-11-29] MEDS: POTASSIUM CHLORIDE 10 MEQ CONTROLLED RELEASE TAB PO SCH ×2 (08:17→20:42)
[2016-11-29 09:32] LABS: BASOPHIL # 0.1 TH/MM3 (0-0.2); BASOPHIL % 0.5 % (0.0-2.0); EOSINOPHIL # 0.1 TH/MM3 (0-0.4); EOSINOPHIL % 0.9 % (0.0-4.0); HEMATOCRIT 30.4 % (39.0-51.0); HEMO FLAGS DIFF FINAL; LYMPH % 4.8 % (9.0-44.0); LYMPHOCYTE # 0.5 TH/MM3 (1.0-4.8); MEAN CELL VOLUME 81.2 FL (80.0-100.0); MEAN CORPUSCULAR HEMOGLOBIN 26.3 PG (27.0-34.0); MEAN CORPUSCULAR HGB CONC 32.4 % (32.0-36.0); MONO % 4.7 % (0.0-8.0); NEUT % 89.1 % (16.0-70.0); PLATELET COUNT 134 TH/MM3 (150-450); RED BLOOD COUNT 3.75 MIL/MM3 (4.50-5.90); RED CELL DISTRIBUTION WIDTH 16.4 % (11.6-17.2); WHITE BLOOD COUNT 10.1 TH/MM3 (4.0-11.0)
[2016-11-29 10:24] LABS: ALKALINE PHOSPHATASE 155 U/L (45-117); ALT (GPT) 39 U/L (12-78); ANION GAP 9 MEQ/L (5-15); AST (GOT) 26 U/L (15-37); BICARBONATE 18.2 MEQ/L (21.0-32.0); BLOOD UREA NITROGEN 14 MG/DL (7-18); CHLORIDE 113 MEQ/L (98-107); GLOMERULAR FILTRATION RATE 100 ML/MIN (>89); MAGNESIUM 1.8 MG/DL (1.5-2.5); SODIUM (NA) 140 MEQ/L (136-145); TOTAL BILIRUBIN ADULT 0.8 MG/DL (0.2-1.0)
[2016-11-29] MEDS: SODIUM CHLORIDE 0.9% IV SCH (11:34)
[2016-11-29] MEDS: DAPTOMYCIN IV SCH (11:34)
--- NOTE | 2016-11-29 13:02 | HHI.PR ---
Subjective Remarks The patient is a 45-year-old male with past medical history of colon cancer on radiation treatment last session on Wednesday and has been on radiation for the past 2-3 months being followed by Dr. Harrell, his oncologist, and Dr. Galvan. He presented to [facility] emergency department with a couple of days history of shortness of breath, pleuritic chest pain with deep inspiration , dry cough and feeling nauseous. The patient denies any exposure to sick contacts. In addition, he denies any prior history of pneumonia or flu. He was found to have a temperature of 101.4 orally in the ER. In addition hewas tachycardiac with heart rate of 120s to 130s. Chest x-ray in the ER showed new bilateral mild air space opacities. The patient subsequently had CT scan of the chest which showed multiple new solid and cavitary irregular nodules seen throughout the lungs bilaterally, and small right-sided pleural effusion. His laboratory data is significant for renal failure with a creatinine level of 2.29 and hypokalemia with a potassium level of 2.8. His lactic acid level measured at 1.2. The patient also is thrombocytopenic with a platelet count of 55, however, his INR is 1.2. In the ED he was given three liters of Crystalloid in addition to cefepime, azithromycin, Tylenol and DuoNeb. When seen in the ER he was on room air oxygen with saturation 96%. However, tachycardiac with heart rate of 123 and blood pressure 154/75. He denies any vomiting, abdominal pain. 11/16 No events overnight. Patient is lying in bed in NAD. Afebrile. renal function is improving with Cr: 1.54 from 2.0. Echo from yesterday showed vegetation on TV, EF 50-55%. 11/17 Patient is lying in bed in NAD. Afebrile. 11/18: decompensated overnight. now intubated, on vasopressors, on 100% fio2 APRV with paO2 72. severe ARDS likely combination of pulmonary septic emboli combined with CHF from severe TR, however also now in septic shock. 11/19: persistently hypoxic on APRV. fio2 weaned but still requiring high Phigh in order to remain oxygenated. Cr continues to rise with minimal uop (~300cc/24h ) despite bumex drip. vasopressors continue and remains in shock. 11/20 Patient is sedated with Diprivan, Fentanyl and intubated. On Levophed 8 mics and Vasopressin 0.04 mics. Afebrile. On Bumex drip. 11/21 Patient remains intubated and sedated with Diprivan and Fentanyl. Afebrile. On Bumex drip 0.5mg/hr. Renal function is improving with Cr: 3.21 from 3.81 with UOP: 9424ml in 24 hrs Off all pressors. 11/22 Patient remains sedated with Diprivan, Fentanyl and intubated. T:100.4 at 4 am. WBC is trending down. Renal function is improving with Cr: 2.59 today from 3.21 on Bumex drip 0.5mg/hr. 11/23 Patient is off Diprivan was on Feminal drip overnight however he is awake and follows simple commands. T:100.7. Off Bumex drip. Patient was given additional 2units PRBC ( 3 total) overnight Hgb 9.3 from 6.9. 11/24 No events overnight. Tolerated CPAP for several hrs yesterday now sedated with Diprivan and Fentanyl drips. s/p LP yesterday clear CSF normal protein and glc.. Renal function continue to improve with Cr: 1.29 today from 1.69. Tmax 101.3 11/25: TMax 99.8. Patient has been extubated alert and oriented, conversant appropriately. No acute events overnight. Patient is maintaining O2 saturation via nasal cannula 5 L/m Sodium level improving, renal function also improving. 11/26 PATIENT REMAINS IN ISOLATION COMPLAINS OF DIARRHEA REMAINS AFEBRILE TRANSFER OUT OF ICU CAN MORE TO FLOOR 9-8 OUT OF ICU -ON THE FLOOR NOW NEEDS PT AND OT DW RN AND PT CONTINUE SHELTER ANTIBIOTICS VERY WEAK STILL 11-28 WANT BLOOD GLUCOSE TESTING STOPPED ON 3 LITERS OXYGEN NOW NEEDS TO BE MORE ACTIVE - DW RN AND PT STILL ON 3 LITERS BY AR Objective Vitals Vital Signs Date Time Temp Pulse Resp B/P (MAP) Pulse Ox O2 Delivery O2 Flow Rate FiO2 11/29/16 08:10 Nasal Cannula 4.00 11/29/16 08:00 98.3 99 16 139/86 (103) 96 11/29/16 00:00 98.4 88 20 144/88 (106) 94 11/28/16 20:56 Nasal Cannula 4.00 11/28/16 20:00 93 11/28/16 20:00 98.1 84 20 135/89 (104) 94 11/28/16 16:00 98.2 88 20 152/82 (105) 95 I/O 11/28/16 11/28/16 11/28/16 11/29/16 11/29/16 11/29/16 06:59 14:59 22:59 06:59 14:59 22:59 Intake Total 120 ml 950 ml 100 ml Output Total 700 ml 425 ml Balance -580 ml 525 ml 100 ml Intake Oral 120 ml 950 ml IV Total 100 ml Output Urine Total 700 ml 425 ml # Bowel Movements 1 Result Diagram: 11/29/16 0811 11/29/16 0811 Other Results Laboratory Tests Test 11/27/16 06:48 11/28/16 07:22 11/29/16 08:11 White Blood Count 9.0 TH/MM3 11.7 TH/MM3 10.1 TH/MM3 Red Blood Count 3.30 MIL/MM3 3.69 MIL/MM3 3.75 MIL/MM3 Hemoglobin 9.0 GM/DL 9.8 GM/DL 9.9 GM/DL Hematocrit 26.6 % 30.0 % 30.4 % Mean Corpuscular Volume 80.6 FL 81.5 FL 81.2 FL Mean Corpuscular Hemoglobin 27.3 PG 26.7 PG 26.3 PG Mean Corpuscular Hemoglobin Concent 33.8 % 32.8 % 32.4 % Red Cell Distribution Width 15.9 % 16.0 % 16.4 % Platelet Count 115 TH/MM3 146 TH/MM3 134 TH/MM3 Mean Platelet Volume 8.8 FL 8.6 FL 8.2 FL Neutrophils (%) (Auto) 89.6 % 90.8 % 89.1 % Lymphocytes (%) (Auto) 4.9 % 3.8 % 4.8 % Monocytes (%) (Auto) 4.5 % 4.2 % 4.7 % Eosinophils (%) (Auto) 0.7 % 0.9 % 0.9 % Basophils (%) (Auto) 0.3 % 0.3 % 0.5 % Neutrophils # (Auto) 8.1 TH/MM3 10.7 TH/MM3 9.0 TH/MM3 Lymphocytes # (Auto) 0.4 TH/MM3 0.5 TH/MM3 0.5 TH/MM3 Monocytes # (Auto) 0.4 TH/MM3 0.5 TH/MM3 0.5 TH/MM3 Eosinophils # (Auto) 0.1 TH/MM3 0.1 TH/MM3 0.1 TH/MM3 Basophils # (Auto) 0.0 TH/MM3 0.0 TH/MM3 0.1 TH/MM3 CBC Comment DIFF FINAL DIFF FINAL DIFF FINAL Differential Comment Blood Urea Nitrogen 22 MG/DL 17 MG/DL 14 MG/DL Creatinine 0.97 MG/DL 0.97 MG/DL 0.84 MG/DL Random Glucose 86 MG/DL 86 MG/DL 76 MG/DL Total Protein 6.1 GM/DL 6.0 GM/DL 5.8 GM/DL Albumin 1.4 GM/DL 1.5 GM/DL 1.6 GM/DL Calcium Level 7.3 MG/DL 6.9 MG/DL 8.0 MG/DL Phosphorus Level 3.5 MG/DL 3.0 MG/DL 2.5 MG/DL Magnesium Level 2.2 MG/DL 2.2 MG/DL 1.8 MG/DL Alkaline Phosphatase 134 U/L 138 U/L 155 U/L Aspartate Amino Transf (AST/SGOT) 34 U/L 21 U/L 26 U/L Alanine Aminotransferase (ALT/SGPT) 36 U/L 33 U/L 39 U/L Total Bilirubin 1.3 MG/DL 1.0 MG/DL 0.8 MG/DL Sodium Level 144 MEQ/L 141 MEQ/L 140 MEQ/L Potassium Level 3.2 MEQ/L 3.9 MEQ/L 4.0 MEQ/L Chloride Level 116 MEQ/L 113 MEQ/L 113 MEQ/L Carbon Dioxide Level 17.6 MEQ/L 19.0 MEQ/L 18.2 MEQ/L Anion Gap 10 MEQ/L 9 MEQ/L 9 MEQ/L Estimat Glomerular Filtration Rate 84 ML/MIN 84 ML/MIN 100 ML/MIN Hemoglobin A1c 5.5 % Protein Corrected Calcium 7.8 MG/DL 7.5 MG/DL Free Thyroxine 0.97 NG/DL Thyroid Stimulating Hormone 3rd Gen 2.010 uIU/ML Imaging Last Impressions Chest X-Ray 11/25/16 0600 Signed Impressions: Service Date/Time: Friday, November 25, 2016 02:53 - CONCLUSION: 1. Stable patchy airspace disease and slight interstitial prominence consistent with atypical infection or edema pattern. 2. Stable small right pleural effusion. 1. Checo Leon MD Lumbar Puncture Fluoroscopy 11/21/16 Signed Impressions: Service Date/Time: Wednesday, November 23, 2016 15:08 - CONCLUSION: Uncomplicated fluoroscopically guided lumbar puncture with pressures as above. Horace Kirkland MD Thoracic Spine MRI 11/20/16 Signed Impressions: Service Date/Time: Sunday, November 20, 2016 21:36 - CONCLUSION: 1. No focal abnormality within the thoracic spine. 2. There is edema/inflammatory change seen in the soft tissues to the left of the C7 and T1 spinous processes better seen on the cervical spine MRI examination. 3. Cavitary lesions in the lungs. Manolo Anne MD Lumbar Spine MRI 11/20/16 Signed Impressions: Service Date/Time: Sunday, November 20, 2016 21:36 - CONCLUSION: 1. No areas of significant stenosis. The disc spaces are preserved. 2. Mild facet hypertrophy at the L3-L4 and L4-L5 old. 3. Nonspecific areas of edema within the soft tissues adjacent to the spinous processes throughout the lumbar spine. This can be seen secondary to some dependent edema. Inflammatory change cannot be excluded. It does appear fairly symmetric when comparing right to left. 4. Ascites. Manolo Anne MD Chest CT 11/20/16 Signed Impressions: Service Date/Time: Sunday, November 20, 2016 11:30 - CONCLUSION: Deterioration in the appearance of the chest with increasing size of nodules and consolidation. Worsening of an inflammatory process is suspected. Michael Youssef MD FACR Cervical Spine MRI 11/20/16 Signed Impressions: Service Date/Time: Sunday, November 20, 2016 21:36 - CONCLUSION: 1. 2.4 cm vague area of edema seen to the left of the spinous processes of C7 and T1 concerning for focal inflammatory/infectious change. The spinous processes themselves demonstrate normal signal. 2. Suspected hemangioma at the C7 vertebral body. 3. Fluid in the nasopharynx, oropharynx and hypopharynx. There is an NG tube and ET tube in place. Manolo Anne MD Brain MRI 11/20/16 Signed Impressions: Service Date/Time: Sunday, November 20, 2016 21:36 - CONCLUSION: 1. Abnormal gyriform signal abnormality in the left frontal and parietal regions associated with some minimally increased signal on the diffusion weighted images. Findings are nonspecific. Differential diagnosis includes an area of meningitis or leptomeningeal spread of tumor given history of malignancy. Infarction less likely. No associated mass effect. Recommend further evaluation with MRI brain with contrast to assess for abnormal meningeal enhancement. Bruno Cleaning MD Abdomen/Pelvis CT 11/20/16 0000 Signed Impressions: Service Date/Time: Sunday, November 20, 2016 11:30 - CONCLUSION: Significant aeration appearance of the lungs. Generalized anasarca, negative for abscess. Adults abdominal abscess. Michael Youssef MD FACR Renal Ultrasound 11/15/16 0000 Signed Impressions: Service Date/Time: Tuesday, November 15, 2016 10:26 - CONCLUSION: Normal examination. Katie Nevarez MD Objective Remarks GENERAL: AWAKE ALERT AND ORIENTED X3 SKIN: Warm and dry.TATTOOS HEAD: Atraumatic. Normocephalic. EYES: Pupils equal and round. No scleral icterus. No injection or drainage. EOMI ENT: No nasal bleeding or discharge. Mucous membranes pink and moist. TONGUE IS MIDLINE NECK: Trachea midline. No JVD. SUPPLE CARDIOVASCULAR: Regular rate and rhythm. S1, S2 NO S3 OR S4 POSITIVE MURMUR RESPIRATORY: No accessory muscle use. COARSE BREATH SOUNDS BL. Breath sounds equal bilaterally. GASTROINTESTINAL: Abdomen soft, non-tender, nondistended. Hepatic and splenic margins not palpable. MUSCULOSKELETAL: Extremities without clubbing, cyanosis, or edema. No obvious deformities. NEUROLOGICAL: Awake and alert. No obvious cranial nerve deficits. Motor grossly within normal limits. 4 out of 5 muscle strength in the arms and legs. Normal speech. PSYCHIATRIC: SLIGHTLY INAppropriate mood and affect; insight and judgment ABnormal. Procedures SP VDRF SP LP Medications and IVs Current Medications Acetaminophen (Tylenol) 650 mg ONCE ONCE PO Last administered on 11/15/16 07: 40; Start 11/15/16 at 07:30; Stop 11/15/16 at 07:31; Status DC Ondansetron HCl (Zofran Inj) 4 mg ONCE ONCE IV Last administered on 11/15/16 07:40; Start 11/15/16 at 07:30; Stop 11/15/16 at 07:31; Status DC Sodium Chloride 1,000 ml @ 1,000 mls/hr Q1H ONCE IV Last administered on 07:40; Start 11/15/16 at 07:24; Stop 11/15/16 at 08:23; Status DC Sodium Chloride 1,000 ml @ 1,000 mls/hr Q1H ONCE IV Last administered on 07:40; Start 11/15/16 at 07:24; Stop 11/15/16 at 08:23; Status DC Sodium Chloride 100 ml @ 1,000 mls/hr Q6M ONCE IV Last administered on 07:40; Start 11/15/16 at 07:24; Stop 11/15/16 at 07:29; Status DC Cefepime HCl 2000 mg/Sodium Chloride 100 ml @ 200 mls/hr ONCE ONCE IV Last administered on 11/15/16 08:53; Start 11/15/16 at 07:45; Stop 11/15/16 at 08:14 ; Status DC Azithromycin 500 mg/Sodium Chloride 250 ml @ 250 mls/hr ONCE ONCE IV Last administered on 11/15/16 07:48; Start 11/15/16 at 07:45; Stop 11/15/16 at 08:44 ; Status DC Albuterol/ Ipratropium (Duoneb Neb) 2 ampule ONCE ONCE NEB Last administered on 11/15/16 07:58; Start 11/15/16 at 08:00; Stop 11/15/16 at 08:01; Status DC Potassium Chloride (KCl) 20 meq ONCE ONCE PO ; Start 11/15/16 at 08:30; Stop at 08:31; Status DC Potassium Chloride 100 ml @ 50 mls/hr Q2H IV Last administered on 11/15/16 17 :03; Start 11/15/16 at 08:30; Stop 11/15/16 at 12:29; Status DC Morphine Sulfate (Morphine Inj) 2 mg ONCE ONCE IV PUSH Last administered on 08:53; Start 11/15/16 at 08:45; Stop 11/15/16 at 08:46; Status DC Pantoprazole Sodium (Protonix Inj) 40 mg DAILY IV Last administered on 08:16; Start 11/15/16 at 10:00 Albuterol/ Ipratropium (Duoneb Neb) 1 ampule Q6HR NEB INH Last administered on 11/19/16 03:16; Start 11/15/16 at 10:00; Stop 11/19/16 at 07:58; Status DC Ipratropium [place] (Atrovent Neb) 0.5 mg Q2HR NEB PRN INH WHEEZING Last administered on 11/18/16 01:12; Start 11/15/16 at 09:00; Stop 11/24/16 at 14:44 ; Status DC Miscellaneous Information 1 [id number] ; Start 11/15/16 at 09:00 Chlorhexidine Gluconate (Chlorhexidine 2% Cloth) Taper DAILY@04 TOP Last administered on 11/26/16 03:13; Start 11/16/16 at 04:00; Stop 11/12/17 at 03:59 Chlorhexidine Gluconate (Chlorhexidine 2% Cloth) 3 pack UNSCH PRN TOP HYGIENIC CARE; Start 11/15/16 at 09:00 Senna/Docusate Sodium (Marina-Colace) 1 tab BID PO Last administered on 11/22/16 21:52; Start 11/15/16 at 11:00; Stop 11/23/16 at 11:41; Status DC Magnesium Hydroxide (Milk Of Magnesia Liq) 30 ml Q12H PRN PO MILD - MODERATE CONSTIPATION; Start 11/15/16 at 09:00 Sennosides (Senokot) 17.2 mg Q12H PRN PO MODERATE - SEVERE CONSTIPATION; Start 11/15/16 at 09:00 Bisacodyl (Dulcolax Supp) 10 mg DAILY PRN RECTAL SEVERE CONSITIPATION; Start at 09:00 Lactulose (Lactulose Liq) 30 ml DAILY PRN PO SEVERE CONSITIPATION; Start at 09:00 Dextrose (D50w (Vial) Inj) 50 ml UNSCH PRN IV HYPOGLYCEMIA-SEE COMMENTS; Start 11/15/16 at 09:45 Glucagon (Glucagon Inj) 1 mg UNSCH PRN OTHER HYPOGLYCEMIA-SEE COMMENTS; Start 11/15/16 at 09:45 Insulin Human Regular (NovoLIN R SUPPLEMENTAL SCALE) 1 Q6H SQ Last administered on 11/21/16 22:24; Start 11/15/16 at 11:00; Stop 11/28/16 at 11:46; Status DC Sodium Chloride 1,000 ml @ 75 mls/hr [id number] IV Last administered on 11:37; Start 11/15/16 at 09:45; Stop 11/17/16 at 10:14; Status DC Vancomycin HCl 1000 mg/Sodium Chloride 250 ml @ 250 mls/hr ONCE ONCE IV Last administered on 11/15/16 10:27; Start 11/15/16 at 10:00; Stop 11/15/16 at 10:59 ; Status DC Piperacillin Sod/ Tazobactam Sod 50 ml @ 100 mls/hr Q6H IV Last administered on 11/16/16 11:37; Start 11/15/16 at 12:00; Stop 11/16/16 at 13:33; Status DC Azithromycin 500 mg/Sodium Chloride 250 ml @ 250 mls/hr Q24H IV ; Start at 08:00; Stop 11/16/16 at 08:00; Status DC Pharmacy Profile Note 0 ml @ 0 mls/hr UNSCH OTHER ; Start 11/15/16 at 10:00; Stop 11/17/16 at 11:03; Status DC Sodium Chloride 1,000 ml @ 999 mls/hr BOLUS ONCE IV Last administered on 11/15 15:16; Start 11/15/16 at 13:00; Stop 11/15/16 at 14:00; Status DC Oxycodone/ Acetaminophen (Percocet 5-325 Mg) 1 tab Q6H PRN PO pain; Start at 12:15; Stop 11/15/16 at 13:02; Status DC Hydromorphone HCl (Dilaudid Pf Inj) 1 mg Q3H PRN IV PUSH PAIN 1 TO 10 AND/OR AGITATION Last administered on 11/18/16 00:54; Start 11/15/16 at 13:00; Stop at 05:48; Status DC Oxycodone/ Acetaminophen (Percocet 5-325 Mg) 1 tab Q4H PRN PO PAIN 1-10 Last administered on 11/18/16 00:54; Start 11/15/16 at 13:00; Stop 11/18/16 at 05:48 ; Status DC Ondansetron HCl (Zofran Inj) 4 mg Q8H PRN IV PUSH NAUSEA OR VOMITING Last administered on 11/24/16 13:07; Start 11/15/16 at 13:15 Diltiazem HCl (Cardizem) 60 mg Q6HR PO Last administered on 11/17/16 23:39; Start 11/16/16 at 08:15; Stop 11/18/16 at 05:48; Status DC Vancomycin HCl 1250 mg/Sodium Chloride 262.5 ml @ 262.5 mls/ hr Q18H IV Last administered on 11/17/16 08:01; Start 11/16/16 at 14:00; Stop 11/17/16 at 11:03 ; Status DC Miscellaneous Information SPECIFIC LAB TO BE CONSTANTINO... ONCE ONCE .XX ; Start 11/18 at 19:45; Stop 11/18/16 at 19:46; Status Cancel Piperacillin Sod/ Tazobactam Sod 50 ml @ 100 mls/hr Q8H IV Last administered on 11/17/16 05:06; Start 11/16/16 at 20:00; Stop 11/17/16 at 07:33; Status DC Potassium Chloride 100 ml @ 50 mls/hr Q2H PRN IV For Potassium 2.8 - 3.2 mEq/L ; Start 11/17/16 at 10:15; Stop 11/18/16 at 06:12; Status DC Potassium Chloride 100 ml @ 50 mls/hr Q2H PRN IV For Potassium 2.8 - 3.2 mEq/ L Last administered on 11/17/16 15:13; Start 11/17/16 at 10:15; Stop 11/18/16 at 06:12; Status DC Potassium Bicarb/ Potassium Chloride (K-Lyte Cl Eff) 50 meq UNSCH PRN PO For Potassium 3.3 - 3.5 mEq/L; Start 11/17/16 at 10:15; Stop 11/18/16 at 06:12; Status DC Potassium Chloride 100 ml @ 25 mls/hr UNSCH PRN IV For Potassium 3.3 - 3.5 mEq /L; Start 11/17/16 at 10:15; Stop 11/18/16 at 06:12; Status DC Potassium Chloride 100 ml @ 50 mls/hr Q2H PRN IV For Potassium 3.3 - 3.5 mEq/ L Last administered on 11/17/16t 17:30; Start 11/17/16 at 10:15; Stop 11/18/16 at 06:12; Status DC Magnesium Sulfate 4 gm/Sodium Chloride 100 ml @ 50 mls/hr UNSCH PRN IV For Magnesium 0.9 - 1.1 mg/dL; Start 11/17/16 at 10:15; Stop 11/18/16 at 06:12; Status DC Magnesium Oxide (Mag-Ox) 800 mg UNSCH PRN PO For Magnesium 1.2 - 1.6 mg/dL; Start 11/17/16 at 10:15; Stop 11/18/16 at 06:12; Status DC Magnesium Sulfate 2 gm/Sodium Chloride 100 ml @ 50 mls/hr UNSCH PRN IV For Magnesium 1.2 - 1.6 mg/dL; Start 11/17/16 at 10:15; Stop 11/18/16 at 06:12; Status DC Potassium Phosphate (K-Phos) 2,000 mg Q4H PRN PO For Phosphorus < 2.5 mg/dL; Start 11/17/16 at 10:15; Stop 11/18/16 at 06:12; Status DC Sodium Phosphate 30 mmol/Sodium Chloride 250 ml @ 42 mls/hr UNSCH PRN IV For Phosphorus < 2.5 mg/dL; Start 11/17/16 at 10:15; Stop 11/18/16 at 06:12; Status DC Potassium Phosphate (K-Phos) 2,000 mg UNSCH PRN PO/TUBE SEE LABEL COMMENTS; Start 11/17/16 at 10:15; Stop 11/18/16 at 06:12; Status DC Potassium Phosphate 30 mmol/ Sodium Chloride 260 ml @ 42 mls/hr UNSCH PRN IV SEE LABEL COMMENTS; Start 11/17/16 at 10:15; Stop 11/18/16 at 06:12; Status DC Bumetanide (Bumex Inj) 1 mg ONCE ONCE IV PUSH Last administered on 11/17/16t 11:13; Start 11/17/16 at 10:15; Stop 11/18/16 at 01:32; Status DC Daptomycin 590 mg/ Sodium Chloride 100 ml @ 200 mls/hr Q24H IV Last administered on 11/29/16 11:34; Start 11/17/16 at 12:00 Rifampin (Rifampin) 150 mg Q12HR PO Last administered on 11/24/16 21:03; Start 11/17/16 at 21:00; Stop 11/25/16 at 11:11; Status DC Bumetanide (Bumex Inj) 1 mg ONCE ONCE IV PUSH ; Start 11/18/16 at 01:30; Stop 11/18/16 at 01:32; Status DC Methylprednisolone Sodium Succinate (SoluMEDROL INJ) 80 mg ONCE ONCE IM Last administered on 11/18/16 04:17; Start 11/18/16 at 01:30; Stop 11/18/16 at 01:31 ; Status DC Etomidate (Amidate Inj) 20 mg ONCE ONCE IV PUSH Last administered on 01:54; Start 11/18/16 at 01:30; Stop 11/18/16 at 01:31; Status DC Succinylcholine Chloride (Quelicin Inj) 100 mg ONCE ONCE IV PUSH Last administered on 11/18/16 01:54; Start 11/18/16 at 01:30; Stop 11/18/16 at 01:32 ; Status DC Propofol 100 ml @ 2.193 mls/ hr Q24H PRN IV SEDATION Last administered on 12:10; Start 11/18/16 at 01:27; Stop 11/19/16 at 16:48; Status DC Fentanyl Citrate 250 ml @ 5 mls/hr Q24H PRN IV SEDATION Last administered on 21:16; Start 11/18/16 at 01:27; Stop 11/19/16 at 16:41; Status DC Midazolam HCl 100 ml @ 2 mls/hr Q24H PRN IV SEDATION Last administered on 01:55; Start 11/18/16 at 01:27; Stop 11/23/16 at 11:41; Status DC Etomidate (Amidate Inj) 20 mg STK-MED ONCE .ROUTE ; Start 11/18/16 at 01:30; Stop 11/18/16 at 01:31; Status DC Propofol 100 ml @ As Directed STK-MED ONCE .ROUTE ; Start 11/18/16 at 01:32; Stop 11/18/16 at 01:33; Status DC Potassium Chloride 100 ml @ 50 mls/hr Q2H PRN IV For Potassium 2.8 - 3.2 mEq/L ; Start 11/18/16 at 02:15; Stop 11/18/16 at 06:12; Status DC Potassium Chloride 100 ml @ 50 mls/hr Q2H PRN IV For Potassium 2.8 - 3.2 mEq/L ; Start 11/18/16 at 02:15; Stop 11/18/16 at 06:12; Status DC Potassium Bicarb/ Potassium Chloride (K-Lyte Cl Eff) 50 meq UNSCH PRN PO For Potassium 3.3 - 3.5 mEq/L; Start 11/18/16 at 02:15; Stop 11/18/16 at 06:12; Status DC Potassium Chloride 100 ml @ 25 mls/hr UNSCH PRN IV For Potassium 3.3 - 3.5 mEq /L; Start 11/18/16 at 02:15; Stop 11/18/16 at 06:12; Status DC Potassium Chloride 100 ml @ 50 mls/hr Q2H PRN IV For Potassium 3.3 - 3.5 mEq/L ; Start 11/18/16 at 02:15; Stop 11/18/16 at 06:12; Status DC Magnesium Sulfate 4 gm/Sodium Chloride 100 ml @ 50 mls/hr UNSCH PRN IV For Magnesium 0.9 - 1.1 mg/dL; Start 11/18/16 at 02:15; Stop 11/18/16 at 06:12; Status DC Magnesium Oxide (Mag-Ox) 800 mg UNSCH PRN PO For Magnesium 1.2 - 1.6 mg/dL; Start 11/18/16 at 02:15; Stop 11/18/16 at 06:12; Status DC Magnesium Sulfate 2 gm/Sodium Chloride 100 ml @ 50 mls/hr UNSCH PRN IV For Magnesium 1.2 - 1.6 mg/dL; Start 11/18/16 at 02:15; Stop 11/18/16 at 06:12; Status DC Potassium Phosphate (K-Phos) 2,000 mg Q4H PRN PO For Phosphorus < 2.5 mg/dL; Start 11/18/16 at 02:15; Stop 11/18/16 at 06:12; Status DC Sodium Phosphate 30 mmol/Sodium Chloride 250 ml @ 42 mls/hr UNSCH PRN IV For Phosphorus < 2.5 mg/dL; Start 11/18/16 at 02:15; Stop 11/18/16 at 06:12; Status DC Potassium Phosphate (K-Phos) 2,000 mg UNSCH PRN PO/TUBE SEE LABEL COMMENTS; Start 11/18/16 at 02:15; Stop 11/18/16 at 06:12; Status DC Potassium Phosphate 30 mmol/ Sodium Chloride 260 ml @ 42 mls/hr UNSCH PRN IV SEE LABEL COMMENTS; Start 11/18/16 at 02:15; Stop 11/18/16 at 06:12; Status DC Sodium Bicarbonate 150 meq/Dextrose 1,150 ml @ 75 mls/hr [id number] IV Last administered on 11/18/16 04:17; Start 11/18/16 at 03:45; Stop 11/18/16 at 05:48 ; Status DC Sodium Chloride 1,000 ml @ 999 mls/hr BOLUS ONCE IV Last administered on 11/18 04:18; Start 11/18/16 at 03:45; Stop 11/18/16 at 04:45; Status DC Norepinephrine Bitartrate 4 mg/ Sodium Chloride 250 ml @ 7.5 mls/hr TITRATE PRN IV Blood pressure management Last administered on 11/18/16 01:55; Start at 03:45; Stop 11/18/16 at 07:51; Status DC Terbutaline Sulfate (Brethine Inj) 1 mg UNSCH PRN SQ For Extravasation; Start 11/18/16 at 03:45 Sodium Chloride 1,000 ml @ 100 mls/hr Q10H IV Last administered on 11/18/16 04:31; Start 11/18/16 at 04:30; Stop 11/18/16 at 05:48; Status DC Norepinephrine Bitartrate 4 mg/ Sodium Chloride 250 ml @ 7.5 mls/hr TITRATE PRN IV Blood pressure management; Start 11/18/16 at 05:30; Stop 11/18/16 at 06: 30; Status DC Vasopressin 40 units/Dextrose 100 ml @ 6 mls/hr [id number] IV ; Start 11/18/16 at 05:25; Stop 11/18/16 at 06:14; Status DC Bumetanide (Bumex Inj) 1 mg Q6H IV PUSH Last administered on 11/18/16t 17:18; Start 11/18/16 at 06:00; Stop 11/20/16 at 08:02; Status DC Magnesium Oxide (Mag-Ox) 800 mg UNSCH PRN PO For Magnesium 1.2 - 1.6 mg/dL; Start 11/18/16 at 06:00; Stop 11/19/16 at 14:59; Status DC Magnesium Sulfate 4 gm/Sodium Chloride 100 ml @ 50 mls/hr UNSCH PRN IV For Magnesium 0.9 - 1.1 mg/dL; Start 11/18/16 at 06:00; Stop 11/19/16 at 14:59; Status DC Magnesium Sulfate 2 gm/Sodium Chloride 100 ml @ 50 mls/hr UNSCH PRN IV For Magnesium 1.2 - 1.6 mg/dL; Start 11/18/16 at 06:00; Stop 11/19/16 at 14:59; Status DC Potassium Chloride 100 ml @ 50 mls/hr Q2H PRN IV For Potassium 2.8 - 3.2 mEq/L ; Start 11/18/16 at 06:00; Stop 11/19/16 at 14:59; Status DC Potassium Chloride 100 ml @ 50 mls/hr Q2H PRN IV For Potassium 3.3 - 3.5 mEq/L ; Start 11/18/16 at 06:00; Stop 11/19/16 at 14:59; Status DC Potassium Chloride 100 ml @ 50 mls/hr Q2H PRN IV For Potassium 2.8 - 3.2 mEq/L ; Start 11/18/16 at 06:00; Stop 11/19/16 at 14:59; Status DC Potassium Chloride 100 ml @ 25 mls/hr UNSCH PRN IV For Potassium 3.3 - 3.5 mEq /L; Start 11/18/16 at 06:00; Stop 11/19/16 at 14:59; Status DC Potassium Phosphate (K-Phos) 2,000 mg Q4H PRN PO For Phosphorus < 2.5 mg/dL; Start 11/18/16 at 06:00; Stop 11/19/16 at 14:59; Status DC Potassium Phosphate (K-Phos) 2,000 mg UNSCH PRN PO/TUBE SEE LABEL COMMENTS; Start 11/18/16 at 06:00; Stop 11/19/16 at 14:59; Status DC Potassium Phosphate 30 mmol/ Sodium Chloride 260 ml @ 42 mls/hr UNSCH PRN IV SEE LABEL COMMENTS; Start 11/18/16 at 06:00; Stop 11/19/16 at 14:59; Status DC Sodium Phosphate 30 mmol/Sodium Chloride 250 ml @ 42 mls/hr UNSCH PRN IV For Phosphorus < 2.5 mg/dL; Start 11/18/16 at 06:00; Stop 11/19/16 at 14:59; Status DC Vasopressin 40 units/Dextrose 100 ml @ 1.5 mls/hr Q24H IV Last administered on 11/20/16 08:47; Start 11/18/16 at 05:54; Stop 11/23/16 at 11:41; Status DC Norepinephrine Bitartrate 16 mg/ Sodium Chloride 250 ml @ 7.5 mls/hr TITRATE PRN IV Blood pressure management; Start 11/18/16 at 06:45; Status Cancel Norepinephrine Bitartrate 16 mg/ Sodium Chloride 250 ml @ 1.87 mls/hr TITRATE PRN IV Maintain MAP > 65 mmHg Last administered on 11/19/16 07:52; Start at 06:45; Stop 11/25/16 at 09:52; Status DC Piperacillin Sod/ Tazobactam Sod 100 ml @ 200 mls/hr Q8H IV Last administered on 11/21/16 08:50; Start 11/18/16 at 08:00; Stop 11/21/16 at 10:28; Status DC Ceftaroline Fosamil 600 mg/ Sodium Chloride 100 ml @ 100 mls/hr Q8H IV Last administered on 11/19/16 09:02; Start 11/18/16 at 09:00; Stop 11/19/16 at 11:03 ; Status DC Bumetanide (Bumex Inj) 1 mg ONCE ONCE IV PUSH Last administered on 11/18/16 10:06; Start 11/18/16 at 10:00; Stop 11/18/16 at 10:01; Status DC Sodium Chloride 1,000 ml @ 100 mls/hr Q10H IV Last administered on 11/18/16 08:00; Start 11/18/16 at 10:00; Stop 11/18/16 at 19:31; Status DC Bumetanide 100 ml @ 4 mls/hr Q24H IV ; Start 11/18/16 at 18:13; Status Cancel Bumetanide 100 ml @ 4 mls/hr Q24H IV Last administered on 11/19/16 23:17; Start 11/18/16 at 19:00; Stop 11/20/16 at 17:02; Status DC Albuterol/ Ipratropium (Duoneb Neb) 1 ampule Q6HR NEB INH Last administered on 11/23/16 08:16; Start 11/19/16 at 10:00; Stop 11/23/16 at 09:59; Status DC Chlorothiazide Sodium (Diuril Inj) 500 mg ONCE ONCE IV Last administered on 10:03; Start 11/19/16 at 09:15; Stop 11/19/16 at 09:16; Status DC Acetazolamide Sodium (Diamox Inj) 500 mg ONCE ONCE IV PUSH Last administered on 11/19/16 10:03; Start 11/19/16 at 09:15; Stop 11/19/16 at 09:16; Status DC Spironolactone (Aldactone) 25 mg ONCE ONCE PO Last administered on 11/19/16 10:03; Start 11/19/16 at 09:00; Stop 11/19/16 at 09:02; Status DC Ceftaroline Fosamil 400 mg/ Sodium Chloride 100 ml @ 100 mls/hr Q8H IV Last administered on 11/21/16 00:51; Start 11/19/16 at 17:00; Stop 11/21/16 at 10:53; Status DC Fentanyl Citrate 250 ml @ 5 mls/hr TITRATE PRN IV Sedation Last administered on 11/24/16 06:41; Start 11/19/16 at 17:00; Stop 11/24/16 at 11:53; Status DC Propofol 100 ml @ 2.427 mls/ hr TITRATE PRN IV SEDATION Last administered on 08:50; Start 11/19/16 at 17:00; Stop 11/21/16 at 12:09; Status DC Chlorothiazide Sodium (Diuril Inj) 500 mg ONCE ONCE IV ; Start 11/20/16 at 06:30 ; Stop 11/20/16 at 08:23; Status DC Albumin Human (Albumin 25% Inj) 25 gm ONCE ONCE IV ; Start 11/20/16 at 06:30; Stop 11/20/16 at 06:31; Status DC Sodium Bicarbonate (Sodium Bicarbonate 8.4% Inj) 100 meq ONCE ONCE IV PUSH Last administered on 11/20/16 09:46; Start 11/20/16 at 09:45; Stop 11/20/16 at 09: 46; Status DC Bumetanide 100 ml @ 2 mls/hr Q24H IV Last administered on 11/20/16 18:00; Start 11/20/16 at 18:00; Stop 11/22/16 at 07:24; Status DC Ceftaroline Fosamil 400 mg/ Sodium Chloride 100 ml @ 100 mls/hr Q8H IV Last administered on 11/26/16 11:59; Start 11/21/16 at 11:00; Stop 11/26/16 at 13:53; Status DC Propofol 100 ml @ 2.19 mls/hr TITRATE PRN IV SEDATION Last administered on 11/24 04:33; Start 11/21/16 at 12:15; Stop 11/24/16 at 11:53; Status DC Acyclovir Sodium 730 mg/Sodium Chloride 150 ml @ 150 mls/hr Q8H IV Last administered on 11/24/16 04:50; Start 11/21/16 at 14:00; Stop 11/24/16 at 11:32; Status DC Midazolam HCl (Versed Inj) 2 mg ONCE ONCE IV PUSH Last administered on 16:39; Start 11/21/16 at 16:30; Stop 11/21/16 at 16:31; Status DC Water (Free Water) 300 ml Q6HR G-TUBE Last administered on 11/23/16 00:00; Start 11/22/16 at 07:30; Stop 11/23/16 at 07:23; Status DC Potassium Chloride 100 ml @ 25 mls/hr BOLUS ONCE IV Last administered on 08:16; Start 11/22/16 at 08:00; Stop 11/22/16 at 11:59; Status DC Acetaminophen (Tylenol) 650 mg Q6H PRN PO fever Last administered on 11/23/16 12:09; Start 11/22/16 at 11:45 Potassium Chloride 100 ml @ 50 mls/hr BOLUS ONCE IV Last administered on 14:40; Start 11/22/16 at 15:00; Stop 11/22/16 at 16:59; Status DC Potassium Chloride 100 ml @ 25 mls/hr Q4H IV Last administered on 11/23/16 01: 36; Start 11/22/16 at 23:15; Stop 11/23/16 at 07:14; Status DC Sodium Chloride 250 ml @ 15 mls/hr ONCE ONCE IV ; Start 11/22/16 at 23:15; Stop 11/23/16 at 15:54; Status DC Water (Free Water) 300 ml Q4HR G-TUBE Last administered on 11/24/16 03:51; Start 11/23/16 at 08:00; Stop 11/25/16 at 09:52; Status DC Dextrose 1,000 ml @ 84 mls/hr [id number] IV Last administered on 11/24/16 06:42; Start 11/23/16 at 08:00; Stop 11/24/16 at 11:53; Status DC Albuterol/ Ipratropium (Duoneb Neb) 1 ampule Q6HR NEB NEB Last administered on 11/24/16 08:09; Start 11/23/16 at 12:00; Stop 11/24/16 at 14:44; Status DC Potassium Chloride 100 ml @ 50 mls/hr Q2H PRN IV For Potassium 2.8 - 3.2 mEq/ L Last administered on 11/24/16 12:17; Start 11/24/16 at 07:30; Stop 11/26/16 at 10:46; Status DC Potassium Chloride 100 ml @ 50 mls/hr Q2H PRN IV For Potassium 2.8 - 3.2 mEq/L ; Start 11/24/16 at 07:30; Stop 11/26/16 at 10:46; Status DC Potassium Bicarb/ Potassium Chloride (K-Lyte Cl Eff) 50 meq UNSCH PRN PO For Potassium 3.3 - 3.5 mEq/L; Start 11/24/16 at 07:30; Stop 11/26/16 at 10:46; Status DC Potassium Chloride 100 ml @ 25 mls/hr UNSCH PRN IV For Potassium 3.3 - 3.5 mEq /L; Start 11/24/16 at 07:30; Stop 11/26/16 at 10:46; Status DC Potassium Chloride 100 ml @ 50 mls/hr Q2H PRN IV For Potassium 3.3 - 3.5 mEq/ L Last administered on 11/25/16 07:00; Start 11/24/16 at 07:30; Stop 11/26/16 at 10:46; Status DC Magnesium Sulfate 4 gm/Sodium Chloride 100 ml @ 50 mls/hr UNSCH PRN IV For Magnesium 0.9 - 1.1 mg/dL; Start 11/24/16 at 07:30; Stop 11/26/16 at 10:46; Status DC Magnesium Oxide (Mag-Ox) 800 mg UNSCH PRN PO For Magnesium 1.2 - 1.6 mg/dL; Start 11/24/16 at 07:30; Stop 11/26/16 at 10:46; Status DC Magnesium Sulfate 2 gm/Sodium Chloride 100 ml @ 50 mls/hr UNSCH PRN IV For Magnesium 1.2 - 1.6 mg/dL; Start 11/24/16 at 07:30; Stop 11/26/16 at 10:46; Status DC Potassium Phosphate (K-Phos) 2,000 mg Q4H PRN PO For Phosphorus < 2.5 mg/dL Last administered on 11/26/16 09:36; Start 11/24/16 at 07:30; Stop 11/26/16 at 10: 46; Status DC Sodium Phosphate 30 mmol/Sodium Chloride 250 ml @ 42 mls/hr UNSCH PRN IV For Phosphorus < 2.5 mg/dL; Start 11/24/16 at 07:30; Stop 11/26/16 at 10:46; Status DC Potassium Phosphate (K-Phos) 2,000 mg UNSCH PRN PO/TUBE SEE LABEL COMMENTS; Start 11/24/16 at 07:30; Stop 11/26/16 at 10:46; Status DC Potassium Phosphate 30 mmol/ Sodium Chloride 260 ml @ 42 mls/hr UNSCH PRN IV SEE LABEL COMMENTS; Start 11/24/16 at 07:30; Stop 11/26/16 at 10:46; Status DC Albuterol/ Ipratropium (Duoneb Neb) 1 ampule Q4HR NEB NEB Last administered on 11/28/16 08:16; Start 11/24/16 at 12:00; Stop 11/28/16 at 11:59; Status DC Albuterol/ Ipratropium (Duoneb Neb) 1 ampule Q2HR NEB PRN NEB SHORTNESS OF BREATH; Start 11/24/16 at 12:00 Acetaminophen/ Hydrocodone Bitart ([place] 10-325 Mg) 1 tab Q4H PRN PO PAIN SCALE 4 TO 10 Last administered on 11/29/16 11:34; Start 11/25/16 at 02:45 Zolpidem Tartrate (Ambien) 10 mg HS PRN PO insomnia Last administered on 23:14; Start 11/25/16 at 02:45 Guaifenesin (Mucinex Er) 600 mg BID PO Last administered on 11/29/16 08:17; Start 11/26/16 at 09:00 Calcium Chloride 1 gm/Sodium Chloride 100 ml @ 100 mls/hr ONCE ONCE IV Last administered on 11/26/16 11:59; Start 11/26/16 at 10:45; Stop 11/26/16 at 11:44; Status DC Calcium Carbonate (Oscal) 1,000 mg BID PO Last administered on 11/29/16 08:16 ; Start 11/26/16 at 11:00 Potassium Chloride (KCl) 40 meq Q12HR PO Last administered on 11/29/16 08:17; Start 11/27/16 at 12:15 Calcium Chloride 1 gm/Sodium Chloride 100 ml @ 100 mls/hr ONCE ONCE IV Last administered on 11/28/16 15:13; Start 11/28/16 at 14:00; Stop 11/28/16 at 14:59; Status DC Urinary Catheter: No Vascular Central Line Catheter: No A/P Assessment and Plan Assessment and Plan Assessment: 45yM with 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 continues to be critically ill, ongoing shock and renal failure. Recently extubated 11/24. Pending evaluation cerebritis versus meningeal carcinomatosis. Prognosis guarded NO LONGER IN SHOCK Plan Neuro: Metabolic encephalopathy-resolved - GCS 15 -UDS: Opiates, Cocaine 11/23 s/p LP showed clear CSF, normal protein and glc, 10 WBC. Follow up on CSF cx and Cytology. 11/20: MRI brain: Abnormal gyriform signal abnormality in the left frontal and parietal regions associated with some minimally increased signal on the diffusion weighted images.ddx meningitis or leptomeningeal spread of tumor given history of malignancy. Neuro is following 11/20: Cervical CT: 2.4 cm vague area of edema seen to the left of the spinous processes of C7 and T1 concerning for focal inflammatory/infectious change. The spinous processes themselves demonstrate normal signal.. Suspected hemangioma at the C7 vertebral body 11/21 EEG: Encephalopathy, no epileptiform features. Pulm: Acute hypoxic and hypercarbic respiratory failure Septic pulmonary emboli Pulmonary Edema Severe ARDS BETTER - intubated 11/18 for worsening hypoxemia. Extubated 11/24 - Continue with vent support keep sat >92%. On PRVC RR 16, TV 550, IT;1.0, PEEP:5, FIO2 45% -Bronchodilators every 4 hours when necessary -CXR 11/25: Improving, small right bilateral pleural effusion -repeat CT chest 11/20: increasing size of nodules and consolidation. - 11/15 CT chest showed cavitary and irregular nodules throughout the lungs bilaterally. CV: Septic Shock Congestive Heart Failure Exacerbation secondary to valvulopathy Severe tricuspid regurgitation Pulmonary Edema -Monitor HR and BP keep MAP>65mmHg - Echo showed EF 50-55%, +Vegetations on TV, severe TR : RACHEL Intravascular volume overload Hypernatremia..improving - Monitor renal function, I/O's, avoid nephrotoxins, place on electrolytes replacement protocol. Will need K replacement today. -Monitor sodium level, encourage free water intake Renal function improving with Cr: 0.9 today from 1.29 - Renal US 11/15: Unremarkable. Renal signed off 11/24- Dr. Gillis FEN/GI: Acute protein calorie malnutrition- moderate Anion-gap metabolic acidosis Intravascular volume overload Colon cancer on radiation treatment Hepatitis C THROMBOCYTOPENIA CHRONIC Speech evaluation- Mechanical soft with thin liquids Protonix 40mg IV daily for GI prophylaxis ID: MRSA Tricuspid Valve infective endocarditis s/p Septic Shock - ID on board - Continue abx per ID ( On daptomycin, Rifampin, Teflaro) monitor CK's. -s/p LP 11/23: Clear CSF, 10 WBC, normal protein and glc. Follow up on CSF cx and Cytology - Echo showed vegetations on TV. - 11/15, 11/16, 09/17 BC: MRSA, 11/18 BC: MRSA - 11/15 Urine cx: MRSA, 11/18 sputum: MRSA -BC 11/20,11/21,11/22, 11/23: NGTD Heme: Anemia secondary to chronic illness Thrombocytopenia secondary to hepatic dysfunction THROMBOCYTOPENIA - Monitor CBC - Patient s/p transfusion 3 units PRBC total on 11/22, stool Hemoccult negative -Continue to monitor LFTs Endo: Hyperglycemia of critical illness - SSI with Accu-Cheks for glycemic control.- STOP ACCUCHECKS GI prophylaxis with Protonix 40 milligrams daily and DVT prophylaxis with SCDs. Not on chemical anticoagulation prophylaxis due to thrombocytopenia. Lines: Right subclavian CVP placed 11/18- 11/24, peripheral IV's. AM LABS TRANSFER OUT OF ICU PT AND OT CASE MANAGEMENT FOR DC PLANNING HYPOKALEMIA REPLACE Discharge Planning WILL NEED IV ANTIBIOTICS AT DC Michael Hayden DO Nov 29, 2016 13:02
[2016-11-30] VITALS (8 sets, daily range): BP systolic 127–146; BP diastolic 75–84; PULSE 93–116; RESP 16–20; TEMP 98.4–100.1; O2SAT 95–99
[2016-11-30] MEDS: ACETAMINOPHEN/HYDROcodone 325 MG/10 MG TAB PO PRN ×4 (02:30→18:25)
[2016-11-30] MEDS: CHLORHEXIDINE GLUCONATE 2 % 1 PACK (2 CLOTHS) TOP SCH (03:44)
[2016-11-30] MEDS: CALCIUM CARBONATE 1.25 GM (CA 500 MG) TAB PO SCH ×2 (08:15→19:59)
[2016-11-30] MEDS: guaiFENesin E.R. 600 MG TAB PO SCH ×2 (08:15→19:58)
[2016-11-30] MEDS: POTASSIUM CHLORIDE 10 MEQ CONTROLLED RELEASE TAB PO SCH ×2 (08:15→19:58)
[2016-11-30] MEDS: PANTOPRAZOLE SODIUM 40 MG VIAL IV SCH (08:15)
--- NOTE | 2016-11-30 12:28 | HHI.PR ---
Subjective Remarks The patient is a 45-year-old male with past medical history of colon cancer on radiation treatment last session on Wednesday and has been on radiation for the past 2-3 months being followed by Dr. Harrell, his oncologist, and Dr. Galvan. He presented to [facility] emergency department with a couple of days history of shortness of breath, pleuritic chest pain with deep inspiration , dry cough and feeling nauseous. The patient denies any exposure to sick contacts. In addition, he denies any prior history of pneumonia or flu. He was found to have a temperature of 101.4 orally in the ER. In addition hewas tachycardiac with heart rate of 120s to 130s. Chest x-ray in the ER showed new bilateral mild air space opacities. The patient subsequently had CT scan of the chest which showed multiple new solid and cavitary irregular nodules seen throughout the lungs bilaterally, and small right-sided pleural effusion. His laboratory data is significant for renal failure with a creatinine level of 2.29 and hypokalemia with a potassium level of 2.8. His lactic acid level measured at 1.2. The patient also is thrombocytopenic with a platelet count of 55, however, his INR is 1.2. In the ED he was given three liters of Crystalloid in addition to cefepime, azithromycin, Tylenol and DuoNeb. When seen in the ER he was on room air oxygen with saturation 96%. However, tachycardiac with heart rate of 123 and blood pressure 154/75. He denies any vomiting, abdominal pain. 11/16 No events overnight. Patient is lying in bed in NAD. Afebrile. renal function is improving with Cr: 1.54 from 2.0. Echo from yesterday showed vegetation on TV, EF 50-55%. 11/17 Patient is lying in bed in NAD. Afebrile. 11/18: decompensated overnight. now intubated, on vasopressors, on 100% fio2 APRV with paO2 72. severe ARDS likely combination of pulmonary septic emboli combined with CHF from severe TR, however also now in septic shock. 11/19: persistently hypoxic on APRV. fio2 weaned but still requiring high Phigh in order to remain oxygenated. Cr continues to rise with minimal uop (~300cc/24h ) despite bumex drip. vasopressors continue and remains in shock. 11/20 Patient is sedated with Diprivan, Fentanyl and intubated. On Levophed 8 mics and Vasopressin 0.04 mics. Afebrile. On Bumex drip. 11/21 Patient remains intubated and sedated with Diprivan and Fentanyl. Afebrile. On Bumex drip 0.5mg/hr. Renal function is improving with Cr: 3.21 from 3.81 with UOP: 9424ml in 24 hrs Off all pressors. 11/22 Patient remains sedated with Diprivan, Fentanyl and intubated. T:100.4 at 4 am. WBC is trending down. Renal function is improving with Cr: 2.59 today from 3.21 on Bumex drip 0.5mg/hr. 11/23 Patient is off Diprivan was on Feminal drip overnight however he is awake and follows simple commands. T:100.7. Off Bumex drip. Patient was given additional 2units PRBC ( 3 total) overnight Hgb 9.3 from 6.9. 11/24 No events overnight. Tolerated CPAP for several hrs yesterday now sedated with Diprivan and Fentanyl drips. s/p LP yesterday clear CSF normal protein and glc.. Renal function continue to improve with Cr: 1.29 today from 1.69. Tmax 101.3 11/25: TMax 99.8. Patient has been extubated alert and oriented, conversant appropriately. No acute events overnight. Patient is maintaining O2 saturation via nasal cannula 5 L/m Sodium level improving, renal function also improving. 11/26 PATIENT REMAINS IN ISOLATION COMPLAINS OF DIARRHEA REMAINS AFEBRILE TRANSFER OUT OF ICU CAN MORE TO FLOOR 9-8 OUT OF ICU -ON THE FLOOR NOW NEEDS PT AND OT REHANA RN AND PT CONTINUE JAIL ANTIBIOTICS VERY WEAK STILL 11-28 WANTS BLOOD GLUCOSE TESTING STOPPED ON 3 LITERS OXYGEN NOW NEEDS TO BE MORE ACTIVE 9- REHANA RN AND PT STILL ON 3 LITERS BY TX 11-30 not safe for dc yet will need antibiotics snf at dc no new complaints worked with PHYSICAL THERAPY REHANA RN AND PT Objective Vitals Vital Signs Date Time Temp Pulse Resp B/P (MAP) Pulse Ox O2 Delivery O2 Flow Rate FiO2 11/30/16 08:30 93 11/30/16 08:30 Nasal Cannula 4.00 11/30/16 04:00 100.1 93 18 139/75 (96) 96 11/30/16 03:44 18 11/30/16 00:47 98.6 96 18 127/79 (95) 97 11/29/16 21:30 98 Nasal Cannula 3.00 11/29/16 20:45 Nasal Cannula 4.00 11/29/16 20:26 98.3 104 20 128/81 (97) 98 11/29/16 20:20 98.3 104 18 128/81 (97) 98 11/29/16 20:00 103 11/29/16 17:25 97 Nasal Cannula 3.00 11/29/16 16:00 98.6 98 16 143/93 (110) 97 I/O 11/29/16 11/29/16 11/29/16 11/30/16 11/30/16 11/30/16 07:00 15:00 23:00 07:00 15:00 23:00 Intake Total 100 ml 840 ml Output Total 400 ml 350 ml Balance 100 ml 440 ml -350 ml Intake Oral 840 ml IV Total 100 ml Output Urine Total 400 ml 350 ml # Bowel Movements 0 Result Diagram: 11/29/16 0811 11/29/16 0811 Other Results Laboratory Tests Test 11/28/16 07:22 11/29/16 08:11 White Blood Count 11.7 TH/MM3 10.1 TH/MM3 Red Blood Count 3.69 MIL/MM3 3.75 MIL/MM3 Hemoglobin 9.8 GM/DL 9.9 GM/DL Hematocrit 30.0 % 30.4 % Mean Corpuscular Volume 81.5 FL 81.2 FL Mean Corpuscular Hemoglobin 26.7 PG 26.3 PG Mean Corpuscular Hemoglobin Concent 32.8 % 32.4 % Red Cell Distribution Width 16.0 % 16.4 % Platelet Count 146 TH/MM3 134 TH/MM3 Mean Platelet Volume 8.6 FL 8.2 FL Neutrophils (%) (Auto) 90.8 % 89.1 % Lymphocytes (%) (Auto) 3.8 % 4.8 % Monocytes (%) (Auto) 4.2 % 4.7 % Eosinophils (%) (Auto) 0.9 % 0.9 % Basophils (%) (Auto) 0.3 % 0.5 % Neutrophils # (Auto) 10.7 TH/MM3 9.0 TH/MM3 Lymphocytes # (Auto) 0.5 TH/MM3 0.5 TH/MM3 Monocytes # (Auto) 0.5 TH/MM3 0.5 TH/MM3 Eosinophils # (Auto) 0.1 TH/MM3 0.1 TH/MM3 Basophils # (Auto) 0.0 TH/MM3 0.1 TH/MM3 CBC Comment DIFF FINAL DIFF FINAL Differential Comment Blood Urea Nitrogen 17 MG/DL 14 MG/DL Creatinine 0.97 MG/DL 0.84 MG/DL Random Glucose 86 MG/DL 76 MG/DL Total Protein 6.0 GM/DL 5.8 GM/DL Albumin 1.5 GM/DL 1.6 GM/DL Calcium Level 6.9 MG/DL 8.0 MG/DL Phosphorus Level 3.0 MG/DL 2.5 MG/DL Magnesium Level 2.2 MG/DL 1.8 MG/DL Alkaline Phosphatase 138 U/L 155 U/L Aspartate Amino Transf (AST/SGOT) 21 U/L 26 U/L Alanine Aminotransferase (ALT/SGPT) 33 U/L 39 U/L Total Bilirubin 1.0 MG/DL 0.8 MG/DL Sodium Level 141 MEQ/L 140 MEQ/L Potassium Level 3.9 MEQ/L 4.0 MEQ/L Chloride Level 113 MEQ/L 113 MEQ/L Carbon Dioxide Level 19.0 MEQ/L 18.2 MEQ/L Anion Gap 9 MEQ/L 9 MEQ/L Estimat Glomerular Filtration Rate 84 ML/MIN 100 ML/MIN Protein Corrected Calcium 7.5 MG/DL Imaging Last Impressions Chest X-Ray 11/25/16 0600 Signed Impressions: Service Date/Time: Friday, November 25, 2016 02:53 - CONCLUSION: 1. Stable patchy airspace disease and slight interstitial prominence consistent with atypical infection or edema pattern. 2. Stable small right pleural effusion. 1. Checo Leon MD Lumbar Puncture Fluoroscopy 11/21/16 0000 Signed Impressions: Service Date/Time: Wednesday, November 23, 2016 15:08 - CONCLUSION: Uncomplicated fluoroscopically guided lumbar puncture with pressures as above. Horace Kirkland MD Thoracic Spine MRI 11/20/16 0000 Signed Impressions: Service Date/Time: Sunday, November 20, 2016 21:36 - CONCLUSION: 1. No focal abnormality within the thoracic spine. 2. There is edema/inflammatory change seen in the soft tissues to the left of the C7 and T1 spinous processes better seen on the cervical spine MRI examination. 3. Cavitary lesions in the lungs. Manolo Anne MD Lumbar Spine MRI 11/20/16 Signed Impressions: Service Date/Time: Sunday, November 20, 2016 21:36 - CONCLUSION: 1. No areas of significant stenosis. The disc spaces are preserved. 2. Mild facet hypertrophy at the L3-L4 and L4-L5 old. 3. Nonspecific areas of edema within the soft tissues adjacent to the spinous processes throughout the lumbar spine. This can be seen secondary to some dependent edema. Inflammatory change cannot be excluded. It does appear fairly symmetric when comparing right to left. 4. Ascites. Manolo Anne MD Chest CT 11/20/16 Signed Impressions: Service Date/Time: Sunday, November 20, 2016 11:30 - CONCLUSION: Deterioration in the appearance of the chest with increasing size of nodules and consolidation. Worsening of an inflammatory process is suspected. Michael Youssef MD FACR Cervical Spine MRI 11/20/16 Signed Impressions: Service Date/Time: Sunday, November 20, 2016 21:36 - CONCLUSION: 1. 2.4 cm vague area of edema seen to the left of the spinous processes of C7 and T1 concerning for focal inflammatory/infectious change. The spinous processes themselves demonstrate normal signal. 2. Suspected hemangioma at the C7 vertebral body. 3. Fluid in the nasopharynx, oropharynx and hypopharynx. There is an NG tube and ET tube in place. Manolo Anne MD Brain MRI 11/20/16 Signed Impressions: Service Date/Time: Sunday, November 20, 2016 21:36 - CONCLUSION: 1. Abnormal gyriform signal abnormality in the left frontal and parietal regions associated with some minimally increased signal on the diffusion weighted images. Findings are nonspecific. Differential diagnosis includes an area of meningitis or leptomeningeal spread of tumor given history of malignancy. Infarction less likely. No associated mass effect. Recommend further evaluation with MRI brain with contrast to assess for abnormal meningeal enhancement. Bruno Cleaning MD Abdomen/Pelvis CT 11/20/16 Signed Impressions: Service Date/Time: Sunday, November 20, 2016 11:30 - CONCLUSION: Significant aeration appearance of the lungs. Generalized anasarca, negative for abscess. Adults abdominal abscess. Michael Youssef MD FACR Renal Ultrasound 11/15/16 0000 Signed Impressions: Service Date/Time: Tuesday, November 15, 2016 10:26 - CONCLUSION: Normal examination. Katie Nevarez MD Objective Remarks GENERAL: AWAKE ALERT AND ORIENTED X3 SKIN: Warm and dry.TATTOOS HEAD: Atraumatic. Normocephalic. EYES: Pupils equal and round. No scleral icterus. No injection or drainage. EOMI ENT: No nasal bleeding or discharge. Mucous membranes pink and moist. TONGUE IS MIDLINE NECK: Trachea midline. No JVD. SUPPLE CARDIOVASCULAR: Regular rate and rhythm. S1, S2 NO S3 OR S4 POSITIVE MURMUR RESPIRATORY: No accessory muscle use. COARSE BREATH SOUNDS BL. Breath sounds equal bilaterally. GASTROINTESTINAL: Abdomen soft, non-tender, nondistended. Hepatic and splenic margins not palpable. MUSCULOSKELETAL: Extremities without clubbing, cyanosis, or edema. No obvious deformities. NEUROLOGICAL: Awake and alert. No obvious cranial nerve deficits. Motor grossly within normal limits. 4 out of 5 muscle strength in the arms and legs. Normal speech. PSYCHIATRIC: SLIGHTLY INAppropriate mood and affect; insight and judgment ABnormal. Procedures SP VDRF SP LP Medications and IVs Current Medications Acetaminophen (Tylenol) 650 mg ONCE ONCE PO Last administered on 11/15/16 07: 40; Start 11/15/16 at 07:30; Stop 11/15/16 at 07:31; Status DC Ondansetron HCl (Zofran Inj) 4 mg ONCE ONCE IV Last administered on 11/15/16 07:40; Start 11/15/16 at 07:30; Stop 11/15/16 at 07:31; Status DC Sodium Chloride 1,000 ml @ 1,000 mls/hr Q1H ONCE IV Last administered on 07:40; Start 11/15/16 at 07:24; Stop 11/15/16 at 08:23; Status DC Sodium Chloride 1,000 ml @ 1,000 mls/hr Q1H ONCE IV Last administered on 07:40; Start 11/15/16 at 07:24; Stop 11/15/16 at 08:23; Status DC Sodium Chloride 100 ml @ 1,000 mls/hr Q6M ONCE IV Last administered on 07:40; Start 11/15/16 at 07:24; Stop 11/15/16 at 07:29; Status DC Cefepime HCl 2000 mg/Sodium Chloride 100 ml @ 200 mls/hr ONCE ONCE IV Last administered on 11/15/16 08:53; Start 11/15/16 at 07:45; Stop 11/15/16 at 08:14 ; Status DC Azithromycin 500 mg/Sodium Chloride 250 ml @ 250 mls/hr ONCE ONCE IV Last administered on 11/15/16 07:48; Start 11/15/16 at 07:45; Stop 11/15/16 at 08:44 ; Status DC Albuterol/ Ipratropium (Duoneb Neb) 2 ampule ONCE ONCE NEB Last administered on 11/15/16 07:58; Start 11/15/16 at 08:00; Stop 11/15/16 at 08:01; Status DC Potassium Chloride (KCl) 20 meq ONCE ONCE PO ; Start 11/15/16 at 08:30; Stop at 08:31; Status DC Potassium Chloride 100 ml @ 50 mls/hr Q2H IV Last administered on 11/15/16 17 :03; Start 11/15/16 at 08:30; Stop 11/15/16 at 12:29; Status DC Morphine Sulfate (Morphine Inj) 2 mg ONCE ONCE IV PUSH Last administered on 08:53; Start 11/15/16 at 08:45; Stop 11/15/16 at 08:46; Status DC Pantoprazole Sodium (Protonix Inj) 40 mg DAILY IV Last administered on 08:15; Start 11/15/16 at 10:00 Albuterol/ Ipratropium (Duoneb Neb) 1 ampule Q6HR NEB INH Last administered on 11/19/16 03:16; Start 11/15/16 at 10:00; Stop 11/19/16 at 07:58; Status DC Ipratropium [place] (Atrovent Neb) 0.5 mg Q2HR NEB PRN INH WHEEZING Last administered on 11/18/16 01:12; Start 11/15/16 at 09:00; Stop 11/24/16 at 14:44 ; Status DC Miscellaneous Information 1 [id number] ; Start 11/15/16 at 09:00 Chlorhexidine Gluconate (Chlorhexidine 2% Cloth) Taper DAILY@04 TOP Last administered on 11/26/16 03:13; Start 11/16/16 at 04:00; Stop 11/12/17 at 03:59 Chlorhexidine Gluconate (Chlorhexidine 2% Cloth) 3 pack UNSCH PRN TOP HYGIENIC CARE; Start 11/15/16 at 09:00 Senna/Docusate Sodium (Marina-Colace) 1 tab BID PO Last administered on 11/22/16 21:52; Start 11/15/16 at 11:00; Stop 11/23/16 at 11:41; Status DC Magnesium Hydroxide (Milk Of Magnesia Liq) 30 ml Q12H PRN PO MILD - MODERATE CONSTIPATION; Start 11/15/16 at 09:00 Sennosides (Senokot) 17.2 mg Q12H PRN PO MODERATE - SEVERE CONSTIPATION; Start 11/15/16 at 09:00 Bisacodyl (Dulcolax Supp) 10 mg DAILY PRN RECTAL SEVERE CONSITIPATION; Start at 09:00 Lactulose (Lactulose Liq) 30 ml DAILY PRN PO SEVERE CONSITIPATION; Start at 09:00 Dextrose (D50w (Vial) Inj) 50 ml UNSCH PRN IV HYPOGLYCEMIA-SEE COMMENTS; Start 11/15/16 at 09:45 Glucagon (Glucagon Inj) 1 mg UNSCH PRN OTHER HYPOGLYCEMIA-SEE COMMENTS; Start 11/15/16 at 09:45 Insulin Human Regular (NovoLIN R SUPPLEMENTAL SCALE) 1 Q6H SQ Last administered on 11/21/16 22:24; Start 11/15/16 at 11:00; Stop 11/28/16 at 11:46; Status DC Sodium Chloride 1,000 ml @ 75 mls/hr [id number] IV Last administered on 11:37; Start 11/15/16 at 09:45; Stop 11/17/16 at 10:14; Status DC Vancomycin HCl 1000 mg/Sodium Chloride 250 ml @ 250 mls/hr ONCE ONCE IV Last administered on 11/15/16 10:27; Start 11/15/16 at 10:00; Stop 11/15/16 at 10:59 ; Status DC Piperacillin Sod/ Tazobactam Sod 50 ml @ 100 mls/hr Q6H IV Last administered on 11/16/16 11:37; Start 11/15/16 at 12:00; Stop 11/16/16 at 13:33; Status DC Azithromycin 500 mg/Sodium Chloride 250 ml @ 250 mls/hr Q24H IV ; Start at 08:00; Stop 11/16/16 at 08:00; Status DC Pharmacy Profile Note 0 ml @ 0 mls/hr UNSCH OTHER ; Start 11/15/16 at 10:00; Stop 11/17/16 at 11:03; Status DC Sodium Chloride 1,000 ml @ 999 mls/hr BOLUS ONCE IV Last administered on 11/15 15:16; Start 11/15/16 at 13:00; Stop 11/15/16 at 14:00; Status DC Oxycodone/ Acetaminophen (Percocet 5-325 Mg) 1 tab Q6H PRN PO pain; Start at 12:15; Stop 11/15/16 at 13:02; Status DC Hydromorphone HCl (Dilaudid Pf Inj) 1 mg Q3H PRN IV PUSH PAIN 1 TO 10 AND/OR AGITATION Last administered on 11/18/16 00:54; Start 11/15/16 at 13:00; Stop at 05:48; Status DC Oxycodone/ Acetaminophen (Percocet 5-325 Mg) 1 tab Q4H PRN PO PAIN 1-10 Last administered on 11/18/16 00:54; Start 11/15/16 at 13:00; Stop 11/18/16 at 05:48 ; Status DC Ondansetron HCl (Zofran Inj) 4 mg Q8H PRN IV PUSH NAUSEA OR VOMITING Last administered on 11/24/16 13:07; Start 11/15/16 at 13:15 Diltiazem HCl (Cardizem) 60 mg Q6HR PO Last administered on 11/17/16 23:39; Start 11/16/16 at 08:15; Stop 11/18/16 at 05:48; Status DC Vancomycin HCl 1250 mg/Sodium Chloride 262.5 ml @ 262.5 mls/ hr Q18H IV Last administered on 11/17/16 08:01; Start 11/16/16 at 14:00; Stop 11/17/16 at 11:03 ; Status DC Miscellaneous Information SPECIFIC LAB TO BE CONSTANTINO... ONCE ONCE .XX ; Start 11/18 at 19:45; Stop 11/18/16 at 19:46; Status Cancel Piperacillin Sod/ Tazobactam Sod 50 ml @ 100 mls/hr Q8H IV Last administered on 11/17/16 05:06; Start 11/16/16 at 20:00; Stop 11/17/16 at 07:33; Status DC Potassium Chloride 100 ml @ 50 mls/hr Q2H PRN IV For Potassium 2.8 - 3.2 mEq/L ; Start 11/17/16 at 10:15; Stop 11/18/16 at 06:12; Status DC Potassium Chloride 100 ml @ 50 mls/hr Q2H PRN IV For Potassium 2.8 - 3.2 mEq/ L Last administered on 11/17/16 15:13; Start 11/17/16 at 10:15; Stop 11/18/16 at 06:12; Status DC Potassium Bicarb/ Potassium Chloride (K-Lyte Cl Eff) 50 meq UNSCH PRN PO For Potassium 3.3 - 3.5 mEq/L; Start 11/17/16 at 10:15; Stop 11/18/16 at 06:12; Status DC Potassium Chloride 100 ml @ 25 mls/hr UNSCH PRN IV For Potassium 3.3 - 3.5 mEq /L; Start 11/17/16 at 10:15; Stop 11/18/16 at 06:12; Status DC Potassium Chloride 100 ml @ 50 mls/hr Q2H PRN IV For Potassium 3.3 - 3.5 mEq/ L Last administered on 11/17/16 17:30; Start 11/17/16 at 10:15; Stop 11/18/16 at 06:12; Status DC Magnesium Sulfate 4 gm/Sodium Chloride 100 ml @ 50 mls/hr UNSCH PRN IV For Magnesium 0.9 - 1.1 mg/dL; Start 11/17/16 at 10:15; Stop 11/18/16 at 06:12; Status DC Magnesium Oxide (Mag-Ox) 800 mg UNSCH PRN PO For Magnesium 1.2 - 1.6 mg/dL; Start 11/17/16 at 10:15; Stop 11/18/16 at 06:12; Status DC Magnesium Sulfate 2 gm/Sodium Chloride 100 ml @ 50 mls/hr UNSCH PRN IV For Magnesium 1.2 - 1.6 mg/dL; Start 11/17/16 at 10:15; Stop 11/18/16 at 06:12; Status DC Potassium Phosphate (K-Phos) 2,000 mg Q4H PRN PO For Phosphorus < 2.5 mg/dL; Start 11/17/16 at 10:15; Stop 11/18/16 at 06:12; Status DC Sodium Phosphate 30 mmol/Sodium Chloride 250 ml @ 42 mls/hr UNSCH PRN IV For Phosphorus < 2.5 mg/dL; Start 11/17/16 at 10:15; Stop 11/18/16 at 06:12; Status DC Potassium Phosphate (K-Phos) 2,000 mg UNSCH PRN PO/TUBE SEE LABEL COMMENTS; Start 11/17/16 at 10:15; Stop 11/18/16 at 06:12; Status DC Potassium Phosphate 30 mmol/ Sodium Chloride 260 ml @ 42 mls/hr UNSCH PRN IV SEE LABEL COMMENTS; Start 11/17/16 at 10:15; Stop 11/18/16 at 06:12; Status DC Bumetanide (Bumex Inj) 1 mg ONCE ONCE IV PUSH Last administered on 11/17/16 11:13; Start 11/17/16 at 10:15; Stop 11/18/16 at 01:32; Status DC Daptomycin 590 mg/ Sodium Chloride 100 ml @ 200 mls/hr Q24H IV Last administered on 11/29/16 11:34; Start 11/17/16 at 12:00 Rifampin (Rifampin) 150 mg Q12HR PO Last administered on 11/24/16 21:03; Start 11/17/16 at 21:00; Stop 11/25/16 at 11:11; Status DC Bumetanide (Bumex Inj) 1 mg ONCE ONCE IV PUSH ; Start 11/18/16 at 01:30; Stop 11/18/16 at 01:32; Status DC Methylprednisolone Sodium Succinate (SoluMEDROL INJ) 80 mg ONCE ONCE IM Last administered on 11/18/16 04:17; Start 11/18/16 at 01:30; Stop 11/18/16 at 01:31 ; Status DC Etomidate (Amidate Inj) 20 mg ONCE ONCE IV PUSH Last administered on 01:54; Start 11/18/16 at 01:30; Stop 11/18/16 at 01:31; Status DC Succinylcholine Chloride (Quelicin Inj) 100 mg ONCE ONCE IV PUSH Last administered on 11/18/16 01:54; Start 11/18/16 at 01:30; Stop 11/18/16 at 01:32 ; Status DC Propofol 100 ml @ 2.193 mls/ hr Q24H PRN IV SEDATION Last administered on 12:10; Start 11/18/16 at 01:27; Stop 11/19/16 at 16:48; Status DC Fentanyl Citrate 250 ml @ 5 mls/hr Q24H PRN IV SEDATION Last administered on 21:16; Start 11/18/16 at 01:27; Stop 11/19/16 at 16:41; Status DC Midazolam HCl 100 ml @ 2 mls/hr Q24H PRN IV SEDATION Last administered on 01:55; Start 11/18/16 at 01:27; Stop 11/23/16 at 11:41; Status DC Etomidate (Amidate Inj) 20 mg STK-MED ONCE .ROUTE ; Start 11/18/16 at 01:30; Stop 11/18/16 at 01:31; Status DC Propofol 100 ml @ As Directed STK-MED ONCE .ROUTE ; Start 11/18/16 at 01:32; Stop 11/18/16 at 01:33; Status DC Potassium Chloride 100 ml @ 50 mls/hr Q2H PRN IV For Potassium 2.8 - 3.2 mEq/L ; Start 11/18/16 at 02:15; Stop 11/18/16 at 06:12; Status DC Potassium Chloride 100 ml @ 50 mls/hr Q2H PRN IV For Potassium 2.8 - 3.2 mEq/L ; Start 11/18/16 at 02:15; Stop 11/18/16 at 06:12; Status DC Potassium Bicarb/ Potassium Chloride (K-Lyte Cl Eff) 50 meq UNSCH PRN PO For Potassium 3.3 - 3.5 mEq/L; Start 11/18/16 at 02:15; Stop 11/18/16 at 06:12; Status DC Potassium Chloride 100 ml @ 25 mls/hr UNSCH PRN IV For Potassium 3.3 - 3.5 mEq /L; Start 11/18/16 at 02:15; Stop 11/18/16 at 06:12; Status DC Potassium Chloride 100 ml @ 50 mls/hr Q2H PRN IV For Potassium 3.3 - 3.5 mEq/L ; Start 11/18/16 at 02:15; Stop 11/18/16 at 06:12; Status DC Magnesium Sulfate 4 gm/Sodium Chloride 100 ml @ 50 mls/hr UNSCH PRN IV For Magnesium 0.9 - 1.1 mg/dL; Start 11/18/16 at 02:15; Stop 11/18/16 at 06:12; Status DC Magnesium Oxide (Mag-Ox) 800 mg UNSCH PRN PO For Magnesium 1.2 - 1.6 mg/dL; Start 11/18/16 at 02:15; Stop 11/18/16 at 06:12; Status DC Magnesium Sulfate 2 gm/Sodium Chloride 100 ml @ 50 mls/hr UNSCH PRN IV For Magnesium 1.2 - 1.6 mg/dL; Start 11/18/16 at 02:15; Stop 11/18/16 at 06:12; Status DC Potassium Phosphate (K-Phos) 2,000 mg Q4H PRN PO For Phosphorus < 2.5 mg/dL; Start 11/18/16 at 02:15; Stop 11/18/16 at 06:12; Status DC Sodium Phosphate 30 mmol/Sodium Chloride 250 ml @ 42 mls/hr UNSCH PRN IV For Phosphorus < 2.5 mg/dL; Start 11/18/16 at 02:15; Stop 11/18/16 at 06:12; Status DC Potassium Phosphate (K-Phos) 2,000 mg UNSCH PRN PO/TUBE SEE LABEL COMMENTS; Start 11/18/16 at 02:15; Stop 11/18/16 at 06:12; Status DC Potassium Phosphate 30 mmol/ Sodium Chloride 260 ml @ 42 mls/hr UNSCH PRN IV SEE LABEL COMMENTS; Start 11/18/16 at 02:15; Stop 11/18/16 at 06:12; Status DC Sodium Bicarbonate 150 meq/Dextrose 1,150 ml @ 75 mls/hr [id number] IV Last administered on 11/18/16 04:17; Start 11/18/16 at 03:45; Stop 11/18/16 at 05:48 ; Status DC Sodium Chloride 1,000 ml @ 999 mls/hr BOLUS ONCE IV Last administered on 11/18 04:18; Start 11/18/16 at 03:45; Stop 11/18/16 at 04:45; Status DC Norepinephrine Bitartrate 4 mg/ Sodium Chloride 250 ml @ 7.5 mls/hr TITRATE PRN IV Blood pressure management Last administered on 11/18/16 01:55; Start at 03:45; Stop 11/18/16 at 07:51; Status DC Terbutaline Sulfate (Brethine Inj) 1 mg UNSCH PRN SQ For Extravasation; Start 11/18/16 at 03:45 Sodium Chloride 1,000 ml @ 100 mls/hr Q10H IV Last administered on 11/18/16 04:31; Start 11/18/16 at 04:30; Stop 11/18/16 at 05:48; Status DC Norepinephrine Bitartrate 4 mg/ Sodium Chloride 250 ml @ 7.5 mls/hr TITRATE PRN IV Blood pressure management; Start 11/18/16 at 05:30; Stop 11/18/16 at 06: 30; Status DC Vasopressin 40 units/Dextrose 100 ml @ 6 mls/hr [id number] IV ; Start 11/18/16 at 05:25; Stop 11/18/16 at 06:14; Status DC Bumetanide (Bumex Inj) 1 mg Q6H IV PUSH Last administered on 11/18/16 17:18; Start 11/18/16 at 06:00; Stop 11/20/16 at 08:02; Status DC Magnesium Oxide (Mag-Ox) 800 mg UNSCH PRN PO For Magnesium 1.2 - 1.6 mg/dL; Start 11/18/16 at 06:00; Stop 11/19/16 at 14:59; Status DC Magnesium Sulfate 4 gm/Sodium Chloride 100 ml @ 50 mls/hr UNSCH PRN IV For Magnesium 0.9 - 1.1 mg/dL; Start 11/18/16 at 06:00; Stop 11/19/16 at 14:59; Status DC Magnesium Sulfate 2 gm/Sodium Chloride 100 ml @ 50 mls/hr UNSCH PRN IV For Magnesium 1.2 - 1.6 mg/dL; Start 11/18/16 at 06:00; Stop 11/19/16 at 14:59; Status DC Potassium Chloride 100 ml @ 50 mls/hr Q2H PRN IV For Potassium 2.8 - 3.2 mEq/L ; Start 11/18/16 at 06:00; Stop 11/19/16 at 14:59; Status DC Potassium Chloride 100 ml @ 50 mls/hr Q2H PRN IV For Potassium 3.3 - 3.5 mEq/L ; Start 11/18/16 at 06:00; Stop 11/19/16 at 14:59; Status DC Potassium Chloride 100 ml @ 50 mls/hr Q2H PRN IV For Potassium 2.8 - 3.2 mEq/L ; Start 11/18/16 at 06:00; Stop 11/19/16 at 14:59; Status DC Potassium Chloride 100 ml @ 25 mls/hr UNSCH PRN IV For Potassium 3.3 - 3.5 mEq /L; Start 11/18/16 at 06:00; Stop 11/19/16 at 14:59; Status DC Potassium Phosphate (K-Phos) 2,000 mg Q4H PRN PO For Phosphorus < 2.5 mg/dL; Start 11/18/16 at 06:00; Stop 11/19/16 at 14:59; Status DC Potassium Phosphate (K-Phos) 2,000 mg UNSCH PRN PO/TUBE SEE LABEL COMMENTS; Start 11/18/16 at 06:00; Stop 11/19/16 at 14:59; Status DC Potassium Phosphate 30 mmol/ Sodium Chloride 260 ml @ 42 mls/hr UNSCH PRN IV SEE LABEL COMMENTS; Start 11/18/16 at 06:00; Stop 11/19/16 at 14:59; Status DC Sodium Phosphate 30 mmol/Sodium Chloride 250 ml @ 42 mls/hr UNSCH PRN IV For Phosphorus < 2.5 mg/dL; Start 11/18/16 at 06:00; Stop 11/19/16 at 14:59; Status DC Vasopressin 40 units/Dextrose 100 ml @ 1.5 mls/hr Q24H IV Last administered on 11/20/16 08:47; Start 11/18/16 at 05:54; Stop 11/23/16 at 11:41; Status DC Norepinephrine Bitartrate 16 mg/ Sodium Chloride 250 ml @ 7.5 mls/hr TITRATE PRN IV Blood pressure management; Start 11/18/16 at 06:45; Status Cancel Norepinephrine Bitartrate 16 mg/ Sodium Chloride 250 ml @ 1.87 mls/hr TITRATE PRN IV Maintain MAP > 65 mmHg Last administered on 11/19/16 07:52; Start at 06:45; Stop 11/25/16 at 09:52; Status DC Piperacillin Sod/ Tazobactam Sod 100 ml @ 200 mls/hr Q8H IV Last administered on 11/21/16 08:50; Start 11/18/16 at 08:00; Stop 11/21/16 at 10:28; Status DC Ceftaroline Fosamil 600 mg/ Sodium Chloride 100 ml @ 100 mls/hr Q8H IV Last administered on 11/19/16 09:02; Start 11/18/16 at 09:00; Stop 11/19/16 at 11:03 ; Status DC Bumetanide (Bumex Inj) 1 mg ONCE ONCE IV PUSH Last administered on 11/18/16 10:06; Start 11/18/16 at 10:00; Stop 11/18/16 at 10:01; Status DC Sodium Chloride 1,000 ml @ 100 mls/hr Q10H IV Last administered on 11/18/16 08:00; Start 11/18/16 at 10:00; Stop 11/18/16 at 19:31; Status DC Bumetanide 100 ml @ 4 mls/hr Q24H IV ; Start 11/18/16 at 18:13; Status Cancel Bumetanide 100 ml @ 4 mls/hr Q24H IV Last administered on 11/19/16 23:17; Start 11/18/16 at 19:00; Stop 11/20/16 at 17:02; Status DC Albuterol/ Ipratropium (Duoneb Neb) 1 ampule Q6HR NEB INH Last administered on 11/23/16 08:16; Start 11/19/16 at 10:00; Stop 11/23/16 at 09:59; Status DC Chlorothiazide Sodium (Diuril Inj) 500 mg ONCE ONCE IV Last administered on 10:03; Start 11/19/16 at 09:15; Stop 11/19/16 at 09:16; Status DC Acetazolamide Sodium (Diamox Inj) 500 mg ONCE ONCE IV PUSH Last administered on 11/19/16 10:03; Start 11/19/16 at 09:15; Stop 11/19/16 at 09:16; Status DC Spironolactone (Aldactone) 25 mg ONCE ONCE PO Last administered on 11/19/16 10:03; Start 11/19/16 at 09:00; Stop 11/19/16 at 09:02; Status DC Ceftaroline Fosamil 400 mg/ Sodium Chloride 100 ml @ 100 mls/hr Q8H IV Last administered on 11/21/16 00:51; Start 11/19/16 at 17:00; Stop 11/21/16 at 10:53; Status DC Fentanyl Citrate 250 ml @ 5 mls/hr TITRATE PRN IV Sedation Last administered on 11/24/16 06:41; Start 11/19/16 at 17:00; Stop 11/24/16 at 11:53; Status DC Propofol 100 ml @ 2.427 mls/ hr TITRATE PRN IV SEDATION Last administered on 08:50; Start 11/19/16 at 17:00; Stop 11/21/16 at 12:09; Status DC Chlorothiazide Sodium (Diuril Inj) 500 mg ONCE ONCE IV ; Start 11/20/16 at 06:30 ; Stop 11/20/16 at 08:23; Status DC Albumin Human (Albumin 25% Inj) 25 gm ONCE ONCE IV ; Start 11/20/16 at 06:30; Stop 11/20/16 at 06:31; Status DC Sodium Bicarbonate (Sodium Bicarbonate 8.4% Inj) 100 meq ONCE ONCE IV PUSH Last administered on 11/20/16 09:46; Start 11/20/16 at 09:45; Stop 11/20/16 at 09: 46; Status DC Bumetanide 100 ml @ 2 mls/hr Q24H IV Last administered on 11/20/16 18:00; Start 11/20/16 at 18:00; Stop 11/22/16 at 07:24; Status DC Ceftaroline Fosamil 400 mg/ Sodium Chloride 100 ml @ 100 mls/hr Q8H IV Last administered on 11/26/16 11:59; Start 11/21/16 at 11:00; Stop 11/26/16 at 13:53; Status DC Propofol 100 ml @ 2.19 mls/hr TITRATE PRN IV SEDATION Last administered on 11/24 04:33; Start 11/21/16 at 12:15; Stop 11/24/16 at 11:53; Status DC Acyclovir Sodium 730 mg/Sodium Chloride 150 ml @ 150 mls/hr Q8H IV Last administered on 11/24/16 04:50; Start 11/21/16 at 14:00; Stop 11/24/16 at 11:32; Status DC Midazolam HCl (Versed Inj) 2 mg ONCE ONCE IV PUSH Last administered on 16:39; Start 11/21/16 at 16:30; Stop 11/21/16 at 16:31; Status DC Water (Free Water) 300 ml Q6HR G-TUBE Last administered on 11/23/16 00:00; Start 11/22/16 at 07:30; Stop 11/23/16 at 07:23; Status DC Potassium Chloride 100 ml @ 25 mls/hr BOLUS ONCE IV Last administered on 08:16; Start 11/22/16 at 08:00; Stop 11/22/16 at 11:59; Status DC Acetaminophen (Tylenol) 650 mg Q6H PRN PO fever Last administered on 11/23/16 12:09; Start 11/22/16 at 11:45 Potassium Chloride 100 ml @ 50 mls/hr BOLUS ONCE IV Last administered on 14:40; Start 11/22/16 at 15:00; Stop 11/22/16 at 16:59; Status DC Potassium Chloride 100 ml @ 25 mls/hr Q4H IV Last administered on 11/23/16 01: 36; Start 11/22/16 at 23:15; Stop 11/23/16 at 07:14; Status DC Sodium Chloride 250 ml @ 15 mls/hr ONCE ONCE IV ; Start 11/22/16 at 23:15; Stop 11/23/16 at 15:54; Status DC Water (Free Water) 300 ml Q4HR G-TUBE Last administered on 11/24/16 03:51; Start 11/23/16 at 08:00; Stop 11/25/16 at 09:52; Status DC Dextrose 1,000 ml @ 84 mls/hr [id number] IV Last administered on 11/24/16 06:42; Start 11/23/16 at 08:00; Stop 11/24/16 at 11:53; Status DC Albuterol/ Ipratropium (Duoneb Neb) 1 ampule Q6HR NEB NEB Last administered on 11/24/16 08:09; Start 11/23/16 at 12:00; Stop 11/24/16 at 14:44; Status DC Potassium Chloride 100 ml @ 50 mls/hr Q2H PRN IV For Potassium 2.8 - 3.2 mEq/ L Last administered on 11/24/16 12:17; Start 11/24/16 at 07:30; Stop 11/26/16 at 10:46; Status DC Potassium Chloride 100 ml @ 50 mls/hr Q2H PRN IV For Potassium 2.8 - 3.2 mEq/L ; Start 11/24/16 at 07:30; Stop 11/26/16 at 10:46; Status DC Potassium Bicarb/ Potassium Chloride (K-Lyte Cl Eff) 50 meq UNSCH PRN PO For Potassium 3.3 - 3.5 mEq/L; Start 11/24/16 at 07:30; Stop 11/26/16 at 10:46; Status DC Potassium Chloride 100 ml @ 25 mls/hr UNSCH PRN IV For Potassium 3.3 - 3.5 mEq /L; Start 11/24/16 at 07:30; Stop 11/26/16 at 10:46; Status DC Potassium Chloride 100 ml @ 50 mls/hr Q2H PRN IV For Potassium 3.3 - 3.5 mEq/ L Last administered on 11/25/16 07:00; Start 11/24/16 at 07:30; Stop 11/26/16 at 10:46; Status DC Magnesium Sulfate 4 gm/Sodium Chloride 100 ml @ 50 mls/hr UNSCH PRN IV For Magnesium 0.9 - 1.1 mg/dL; Start 11/24/16 at 07:30; Stop 11/26/16 at 10:46; Status DC Magnesium Oxide (Mag-Ox) 800 mg UNSCH PRN PO For Magnesium 1.2 - 1.6 mg/dL; Start 11/24/16 at 07:30; Stop 11/26/16 at 10:46; Status DC Magnesium Sulfate 2 gm/Sodium Chloride 100 ml @ 50 mls/hr UNSCH PRN IV For Magnesium 1.2 - 1.6 mg/dL; Start 11/24/16 at 07:30; Stop 11/26/16 at 10:46; Status DC Potassium Phosphate (K-Phos) 2,000 mg Q4H PRN PO For Phosphorus < 2.5 mg/dL Last administered on 11/26/16 09:36; Start 11/24/16 at 07:30; Stop 11/26/16 at 10: 46; Status DC Sodium Phosphate 30 mmol/Sodium Chloride 250 ml @ 42 mls/hr UNSCH PRN IV For Phosphorus < 2.5 mg/dL; Start 11/24/16 at 07:30; Stop 11/26/16 at 10:46; Status DC Potassium Phosphate (K-Phos) 2,000 mg UNSCH PRN PO/TUBE SEE LABEL COMMENTS; Start 11/24/16 at 07:30; Stop 11/26/16 at 10:46; Status DC Potassium Phosphate 30 mmol/ Sodium Chloride 260 ml @ 42 mls/hr UNSCH PRN IV SEE LABEL COMMENTS; Start 11/24/16 at 07:30; Stop 11/26/16 at 10:46; Status DC Albuterol/ Ipratropium (Duoneb Neb) 1 ampule Q4HR NEB NEB Last administered on 11/28/16 08:16; Start 11/24/16 at 12:00; Stop 11/28/16 at 11:59; Status DC Albuterol/ Ipratropium (Duoneb Neb) 1 ampule Q2HR NEB PRN NEB SHORTNESS OF BREATH; Start 11/24/16 at 12:00 Acetaminophen/ Hydrocodone Bitart ([place] 10-325 Mg) 1 tab Q4H PRN PO PAIN SCALE 4 TO 10 Last administered on 11/30/16 06:59; Start 11/25/16 at 02:45 Zolpidem Tartrate (Ambien) 10 mg HS PRN PO insomnia Last administered on 23:14; Start 11/25/16 at 02:45 Guaifenesin (Mucinex Er) 600 mg BID PO Last administered on 11/30/16 08:15; Start 11/26/16 at 09:00 Calcium Chloride 1 gm/Sodium Chloride 100 ml @ 100 mls/hr ONCE ONCE IV Last administered on 11/26/16 11:59; Start 11/26/16 at 10:45; Stop 11/26/16 at 11:44; Status DC Calcium Carbonate (Oscal) 1,000 mg BID PO Last administered on 11/30/16 08:15 ; Start 11/26/16 at 11:00 Potassium Chloride (KCl) 40 meq Q12HR PO Last administered on 11/30/16 08:15; Start 11/27/16 at 12:15 Calcium Chloride 1 gm/Sodium Chloride 100 ml @ 100 mls/hr ONCE ONCE IV Last administered on 11/28/16 15:13; Start 11/28/16 at 14:00; Stop 11/28/16 at 14:59; Status DC A/P Assessment and Plan Assessment and Plan Assessment: 45yM with 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 continues to be critically ill, ongoing shock and renal failure. Recently extubated 11/24. Pending evaluation cerebritis versus meningeal carcinomatosis. Prognosis guarded NO LONGER IN SHOCK Plan Neuro: Metabolic encephalopathy-resolved - GCS 15 -UDS: Opiates, Cocaine 11/23 s/p LP showed clear CSF, normal protein and glc, 10 WBC. Follow up on CSF cx and Cytology. 11/20: MRI brain: Abnormal gyriform signal abnormality in the left frontal and parietal regions associated with some minimally increased signal on the diffusion weighted images.ddx meningitis or leptomeningeal spread of tumor given history of malignancy. Neuro is following 11/20: Cervical CT: 2.4 cm vague area of edema seen to the left of the spinous processes of C7 and T1 concerning for focal inflammatory/infectious change. The spinous processes themselves demonstrate normal signal.. Suspected hemangioma at the C7 vertebral body 11/21 EEG: Encephalopathy, no epileptiform features. RESOLVED Pulm: Acute hypoxic and hypercarbic respiratory failure Septic pulmonary emboli Pulmonary Edema Severe ARDS BETTER-RESOLVED - intubated 11/18 for worsening hypoxemia. Extubated 11/24 - Continue with vent support keep sat >92%. On PRVC RR 16, TV 550, IT;1.0, PEEP:5, FIO2 45% -Bronchodilators every 4 hours when necessary -CXR 11/25: Improving, small right bilateral pleural effusion -repeat CT chest 11/20: increasing size of nodules and consolidation. - 11/15 CT chest showed cavitary and irregular nodules throughout the lungs bilaterally. CV: Septic Shock Congestive Heart Failure Exacerbation secondary to valvulopathy Severe tricuspid regurgitation Pulmonary Edema -Monitor HR and BP keep MAP>65mmHg - Echo showed EF 50-55%, +Vegetations on TV, severe TR ENDOCARDITIS ON TV AND SEVERE TR : RACHEL Intravascular volume overload Hypernatremia..improving - Monitor renal function, I/O's, avoid nephrotoxins, place on electrolytes replacement protocol. Will need K replacement today. -Monitor sodium level, encourage free water intake Renal function improving with Cr: 0.9 today from 1. - Renal US 11/15: Unremarkable. Renal signed off 11/24- Dr. Gillis FEN/GI: Acute protein calorie malnutrition- moderate Anion-gap metabolic acidosis Intravascular volume overload Colon cancer on radiation treatment Hepatitis C THROMBOCYTOPENIA CHRONIC Speech evaluation- Mechanical soft with thin liquids Protonix 40mg IV daily for GI prophylaxis ID: MRSA Tricuspid Valve infective endocarditis s/p Septic Shock - ID on board - Continue abx per ID ( On daptomycin, Rifampin, Teflaro) monitor CK's. -s/p LP 11/23: Clear CSF, 10 WBC, normal protein and glc. Follow up on CSF cx and Cytology - Echo showed vegetations on TV. - 11/15, 11/16, 09/17 BC: MRSA, 11/18 BC: MRSA - 11/15 Urine cx: MRSA, 11/18 sputum: MRSA -BC 11/20,11/21,11/22, 11/23: NGTD Heme: Anemia secondary to chronic illness Thrombocytopenia secondary to hepatic dysfunction THROMBOCYTOPENIA - Monitor CBC - Patient s/p transfusion 3 units PRBC total on 11/22, stool Hemoccult negative -Continue to monitor LFTs Endo: Hyperglycemia of critical illness - SSI with Accu-Cheks for glycemic control.- STOP ACCUCHECKS GI prophylaxis with Protonix 40 milligrams daily and DVT prophylaxis with SCDs. Not on chemical anticoagulation prophylaxis due to thrombocytopenia. Lines: Right subclavian CVP placed 11/18- 11/24, peripheral IV's. AM LABS TRANSFER OUT OF ICU PT AND OT CASE MANAGEMENT FOR DC PLANNING HYPOKALEMIA REPLACE Discharge Planning WILL NEED IV ANTIBIOTICS AT DC Michael Hayden DO Nov 30, 2016 12:28
[2016-11-30] MEDS: SODIUM CHLORIDE 0.9% IV SCH (13:03)
[2016-11-30] MEDS: DAPTOMYCIN IV SCH (13:03)
--- NOTE | 2016-11-30 17:34 | HHI.IDPN ---
Subjective Subjective Remarks is a 45 y/o CM with history of Rectal Cancer (Invasive moderately differentiated Adenocarcinoma with no prior lung or distant mets), and has no port or PICC line and has been receiving oral chemotherapy. Patient is followed by Dr. Vielka Harrell. Patient also sees colorectal surgeon and has undergone colonoscopy but no definite surgery. Patient also has been seeing Dr. Santana radiation oncologist and has been undergoing radiation therapy. Reportedly, the patient's last radiation therapy was on Wednesday before admission. Admitted with sepsis. Intubated. BC with MRSA. Sputum with MRSA, TTE with TV vegetatuin and severe TR. CTA with findings of pulmonary septic emboli. MRI cervical abnormal finidngs of inflammatory changes to the left of C7-T1 Infectious disease was consulted for the management of sepsis, pneumonia in an immune compromised patient. Low grade fever in the last 24 hrs diarrhea better co back pain, ambulates with walker, denies incontinence Antibiotics Dapto IV Teflaro IV Rifampin Lines Line sites with no e.o infection. Past Medical History reviewed. Allergies: Coded Allergies: No Known Allergies (Unverified , 11/15/16) Objective . Vital Signs Date Time Temp Pulse Resp B/P (MAP) Pulse Ox O2 Delivery O2 Flow Rate FiO2 11/30/16 12:00 99.4 103 16 146/84 (104) 98 11/30/16 08:30 93 11/30/16 08:30 Nasal Cannula 4.00 11/30/16 08:00 98.4 94 16 134/76 (95) 95 11/30/16 04:00 100.1 93 18 139/75 (96) 96 11/30/16 03:44 18 11/30/16 00:47 98.6 96 18 127/79 (95) 97 11/29/16 21:30 98 Nasal Cannula 3.00 11/29/16 20:45 Nasal Cannula 4.00 11/29/16 20:26 98.3 104 20 128/81 (97) 98 11/29/16 20:20 98.3 104 18 128/81 (97) 98 11/29/16 20:00 103 . Laboratory Tests Test 11/29/16 08:11 White Blood Count 10.1 TH/MM3 Red Blood Count 3.75 MIL/MM3 Hemoglobin 9.9 GM/DL Hematocrit 30.4 % Mean Corpuscular Volume 81.2 FL Mean Corpuscular Hemoglobin 26.3 PG Mean Corpuscular Hemoglobin Concent 32.4 % Red Cell Distribution Width 16.4 % Platelet Count 134 TH/MM3 Mean Platelet Volume 8.2 FL Neutrophils (%) (Auto) 89.1 % Lymphocytes (%) (Auto) 4.8 % Monocytes (%) (Auto) 4.7 % Eosinophils (%) (Auto) 0.9 % Basophils (%) (Auto) 0.5 % Neutrophils # (Auto) 9.0 TH/MM3 Lymphocytes # (Auto) 0.5 TH/MM3 Monocytes # (Auto) 0.5 TH/MM3 Eosinophils # (Auto) 0.1 TH/MM3 Basophils # (Auto) 0.1 TH/MM3 CBC Comment DIFF FINAL Differential Comment Laboratory Tests Test 11/29/16 08:11 Blood Urea Nitrogen 14 MG/DL Creatinine 0.84 MG/DL Random Glucose 76 MG/DL Total Protein 5.8 GM/DL Albumin 1.6 GM/DL Calcium Level 8.0 MG/DL Phosphorus Level 2.5 MG/DL Magnesium Level 1.8 MG/DL Alkaline Phosphatase 155 U/L Aspartate Amino Transf (AST/SGOT) 26 U/L Alanine Aminotransferase (ALT/SGPT) 39 U/L Total Bilirubin 0.8 MG/DL Sodium Level 140 MEQ/L Potassium Level 4.0 MEQ/L Chloride Level 113 MEQ/L Carbon Dioxide Level 18.2 MEQ/L Anion Gap 9 MEQ/L Estimat Glomerular Filtration Rate 100 ML/MIN Imaging Last Impressions Chest X-Ray 11/25/16 0600 Signed Impressions: Service Date/Time: Friday, November 25, 2016 02:53 - CONCLUSION: 1. Stable patchy airspace disease and slight interstitial prominence consistent with atypical infection or edema pattern. 2. Stable small right pleural effusion. 1. Checo Leon MD Lumbar Puncture Fluoroscopy 11/21/16 0000 Signed Impressions: Service Date/Time: Wednesday, November 23, 2016 15:08 - CONCLUSION: Uncomplicated fluoroscopically guided lumbar puncture with pressures as above. Horace Kirkland MD Thoracic Spine MRI 11/20/16 0000 Signed Impressions: Service Date/Time: Sunday, November 20, 2016 21:36 - CONCLUSION: 1. No focal abnormality within the thoracic spine. 2. There is edema/inflammatory change seen in the soft tissues to the left of the C7 and T1 spinous processes better seen on the cervical spine MRI examination. 3. Cavitary lesions in the lungs. Manolo Anne MD Lumbar Spine MRI 11/20/16 Signed Impressions: Service Date/Time: Sunday, November 20, 2016 21:36 - CONCLUSION: 1. No areas of significant stenosis. The disc spaces are preserved. 2. Mild facet hypertrophy at the L3-L4 and L4-L5 old. 3. Nonspecific areas of edema within the soft tissues adjacent to the spinous processes throughout the lumbar spine. This can be seen secondary to some dependent edema. Inflammatory change cannot be excluded. It does appear fairly symmetric when comparing right to left. 4. Ascites. Manolo Anne MD Chest CT 11/20/16 Signed Impressions: Service Date/Time: Sunday, November 20, 2016 11:30 - CONCLUSION: Deterioration in the appearance of the chest with increasing size of nodules and consolidation. Worsening of an inflammatory process is suspected. Michael Youssef MD FACR Cervical Spine MRI 11/20/16 Signed Impressions: Service Date/Time: Sunday, November 20, 2016 21:36 - CONCLUSION: 1. 2.4 cm vague area of edema seen to the left of the spinous processes of C7 and T1 concerning for focal inflammatory/infectious change. The spinous processes themselves demonstrate normal signal. 2. Suspected hemangioma at the C7 vertebral body. 3. Fluid in the nasopharynx, oropharynx and hypopharynx. There is an NG tube and ET tube in place. Manolo Anne MD Brain MRI 11/20/16 Signed Impressions: Service Date/Time: Sunday, November 20, 2016 21:36 - CONCLUSION: 1. Abnormal gyriform signal abnormality in the left frontal and parietal regions associated with some minimally increased signal on the diffusion weighted images. Findings are nonspecific. Differential diagnosis includes an area of meningitis or leptomeningeal spread of tumor given history of malignancy. Infarction less likely. No associated mass effect. Recommend further evaluation with MRI brain with contrast to assess for abnormal meningeal enhancement. Bruno Cleaning MD Abdomen/Pelvis CT 11/20/16 Signed Impressions: Service Date/Time: Sunday, November 20, 2016 11:30 - CONCLUSION: Significant aeration appearance of the lungs. Generalized anasarca, negative for abscess. Adults abdominal abscess. Michael Youssef MD FACR Renal Ultrasound 11/15/16 0000 Signed Impressions: Service Date/Time: Tuesday, November 15, 2016 10:26 - CONCLUSION: Normal examination. Katie Nevarez MD Physical Exam GENERAL: awake, alert comfortable comfortable SKIN: No rashes, ecchymoses or lesions. HEAD: Atraumatic. Normocephalic. No temporal or scalp tenderness. EYES: Pupils equal round and reactive. Extraocular motions intact. No scleral icterus. No injection or drainage. ENT: Nose without bleeding, purulent drainage or septal hematoma. NECK: Trachea midline. Supple, nontender, no meningeal signs. CARDIOVASCULAR: Tachycardic, no rub RESPIRATORY:clear to auscultation GASTROINTESTINAL: Abdomen soft, non-tender, nondistended. MUSCULOSKELETAL: Extremities without clubbing, cyanosis, or edema. NEUROLOGICAL: awake alert non focal Psych could not be assessed. IV line sites with no evidence of infection. Assessment & Plan Remarks Septic Shock with MODS (fever, tachy, low BP, bandemia, source: lung, endocarditis) MRSA bacteremia, TV endocarditis with severe TR. Possible CL infection new vs ongoing seeding due to line being placed in middle of bacteremia. Abnormal MRI brain, ?septic emboli likely meningitis/cerebritis (partially treated at this point) Lung lesions: septic emboli most likely. Other differentials include cancer related mets. Very less likely to be fungal or TB. Acute renal failure: prerenal, sepsis. Acute metabolic encephalopathy: sepsis, less likely to be meningitis. Hyponatremia: Infection, metabolic, meningitis Hepatitis C positive. Rectal ca sp neoadjuvant XRT, chemo New fever, low grade x 1 Recommendations: Continue Daptomycin IV (Re: Worsening clinically, resp distress, back pain, neck pain ? further dissemination). Does not cover Pneumonia. CSF studies from LP today not suggestive of bacterial infection but MRI concerning for possible cerebritis (likely partially treated when imaging obtained). will re chk blood clx (fever) Sandra Daugherty MD Nov 30, 2016 17:34
[2016-11-30] MEDS: ACETAMINOPHEN 325 MG TAB PO PRN (20:08)
[2016-12-01] VITALS (7 sets, daily range): BP systolic 127–169; BP diastolic 81–104; PULSE 96–115; RESP 18–20; TEMP 98–100.8; O2SAT 93–96
[2016-12-01] MEDS: CHLORHEXIDINE GLUCONATE 2 % 1 PACK (2 CLOTHS) TOP SCH (03:01)
[2016-12-01] MEDS: ACETAMINOPHEN/HYDROcodone 325 MG/10 MG TAB PO PRN ×4 (03:34→19:37)
[2016-12-01] MEDS: CALCIUM CARBONATE 1.25 GM (CA 500 MG) TAB PO SCH ×2 (08:45→21:18)
[2016-12-01] MEDS: guaiFENesin E.R. 600 MG TAB PO SCH ×2 (08:45→21:18)
[2016-12-01] MEDS: POTASSIUM CHLORIDE 10 MEQ CONTROLLED RELEASE TAB PO SCH ×2 (08:46→21:18)
[2016-12-01] MEDS: PANTOPRAZOLE SODIUM 40 MG VIAL IV SCH (08:47)
[2016-12-01] MEDS: DAPTOMYCIN IV SCH (13:07)
[2016-12-01] MEDS: SODIUM CHLORIDE 0.9% IV SCH (13:07)
--- NOTE | 2016-12-01 13:44 | HHI.PR ---
Subjective Remarks 45 YOWM with TV Endocarditis,Lung cavities likly septic emboli No diarrhoea No Fever no Abd pain Feels better Weaned off 02 Objective Vital Signs Vital Signs Date Time Temp Pulse Resp B/P (MAP) Pulse Ox O2 Delivery O2 Flow Rate FiO2 12/01/16 12:00 98.8 108 20 129/81 (97) 94 12/01/16 09:00 93 21 12/01/16 08:00 99.1 99 18 142/87 (105) 93 12/01/16 08:00 97 12/01/16 07:15 Room Air 12/01/16 04:00 98.4 109 18 138/81 (100) 96 12/01/16 00:00 Nasal Cannula 4.00 12/01/16 00:00 98.0 96 18 127/81 (96) 95 11/30/16 21:00 98.7 11/30/16 20:03 Nasal Cannula 3.00 11/30/16 20:00 116 11/30/16 20:00 99.3 116 20 131/77 (95) 97 11/30/16 20:00 Nasal Cannula 4.00 11/30/16 16:00 98.8 98 18 140/81 (100) 99 I/O 11/30/16 11/30/16 11/30/16 12/01/16 12/01/16 12/01/16 07:00 15:00 23:00 07:00 15:00 23:00 Intake Total 840 ml Output Total 350 ml 600 ml 400 ml Balance -350 ml 240 ml -400 ml Intake Oral 840 ml Output Urine Total 350 ml 600 ml 400 ml # Bowel Movements 0 Result Diagram: 11/29/1611 11/29/16 0811 Objective Remarks GENERAL: MBMN WM, NAD SKIN: Warm and dry. HEAD: Normocephalic. EYES: No scleral icterus. No injection or drainage. NECK: Supple, trachea midline. No JVD or lymphadenopathy. CARDIOVASCULAR: Regular rate and rhythm without murmurs, gallops, or rubs. RESPIRATORY: Breath sounds equal bilaterally. No accessory muscle use. GASTROINTESTINAL: Abdomen soft, non-tender, nondistended. MUSCULOSKELETAL: No cyanosis, or edema. BACK: Nontender without obvious deformity. No CVA tenderness. A/P Assessment and Plan Pneumonia Septic emboli TV Endocarditis IV drug use Diarrhoea PLAN Cont Abx per ID Aerosol nebs Stable from pulm standpoint Check RA Agustin Dillard MD Dec 01, 2016 13:44
--- NOTE | 2016-12-01 15:18 | HHI.PR ---
Subjective Remarks The patient is a 45-year-old male with past medical history of colon cancer on radiation treatment last session on Wednesday and has been on radiation for the past 2-3 months being followed by Dr. Harrell, his oncologist, and Dr. Galvan. He presented to [facility] emergency department with a couple of days history of shortness of breath, pleuritic chest pain with deep inspiration , dry cough and feeling nauseous. The patient denies any exposure to sick contacts. In addition, he denies any prior history of pneumonia or flu. He was found to have a temperature of 101.4 orally in the ER. In addition hewas tachycardiac with heart rate of 120s to 130s. Chest x-ray in the ER showed new bilateral mild air space opacities. The patient subsequently had CT scan of the chest which showed multiple new solid and cavitary irregular nodules seen throughout the lungs bilaterally, and small right-sided pleural effusion. His laboratory data is significant for renal failure with a creatinine level of 2.29 and hypokalemia with a potassium level of 2.8. His lactic acid level measured at 1.2. The patient also is thrombocytopenic with a platelet count of 55, however, his INR is 1.2. In the ED he was given three liters of Crystalloid in addition to cefepime, azithromycin, Tylenol and DuoNeb. When seen in the ER he was on room air oxygen with saturation 96%. However, tachycardiac with heart rate of 123 and blood pressure 154/75. He denies any vomiting, abdominal pain. 11/16 No events overnight. Patient is lying in bed in NAD. Afebrile. renal function is improving with Cr: 1.54 from 2.0. Echo from yesterday showed vegetation on TV, EF 50-55%. 11/17 Patient is lying in bed in NAD. Afebrile. 11/18: decompensated overnight. now intubated, on vasopressors, on 100% fio2 APRV with paO2 72. severe ARDS likely combination of pulmonary septic emboli combined with CHF from severe TR, however also now in septic shock. 11/19: persistently hypoxic on APRV. fio2 weaned but still requiring high Phigh in order to remain oxygenated. Cr continues to rise with minimal uop (~300cc/24h ) despite bumex drip. vasopressors continue and remains in shock. 11/20 Patient is sedated with Diprivan, Fentanyl and intubated. On Levophed 8 mics and Vasopressin 0.04 mics. Afebrile. On Bumex drip. 11/21 Patient remains intubated and sedated with Diprivan and Fentanyl. Afebrile. On Bumex drip 0.5mg/hr. Renal function is improving with Cr: 3.21 from 3.81 with UOP: 9424ml in 24 hrs Off all pressors. 11/22 Patient remains sedated with Diprivan, Fentanyl and intubated. T:100.4 at 4 am. WBC is trending down. Renal function is improving with Cr: 2.59 today from 3.21 on Bumex drip 0.5mg/hr. 11/23 Patient is off Diprivan was on Feminal drip overnight however he is awake and follows simple commands. T:100.7. Off Bumex drip. Patient was given additional 2units PRBC ( 3 total) overnight Hgb 9.3 from 6.9. 11/24 No events overnight. Tolerated CPAP for several hrs yesterday now sedated with Diprivan and Fentanyl drips. s/p LP yesterday clear CSF normal protein and glc.. Renal function continue to improve with Cr: 1.29 today from 1.69. Tmax 101.3 11/25: TMax 99.8. Patient has been extubated alert and oriented, conversant appropriately. No acute events overnight. Patient is maintaining O2 saturation via nasal cannula 5 L/m Sodium level improving, renal function also improving. 11/26 PATIENT REMAINS IN ISOLATION COMPLAINS OF DIARRHEA REMAINS AFEBRILE TRANSFER OUT OF ICU CAN MORE TO FLOOR 9-8 OUT OF ICU -ON THE FLOOR NOW NEEDS PT AND OT DW RN AND PT CONTINUE SENIOR CARE ANTIBIOTICS VERY WEAK STILL 11-28 WANTS BLOOD GLUCOSE TESTING STOPPED ON 3 LITERS OXYGEN NOW NEEDS TO BE MORE ACTIVE 9- DW RN AND PT STILL ON 3 LITERS BY SD 11-30 not safe for dc yet will need antibiotics half-way at dc no new complaints worked with PHYSICAL THERAPY DW RN AND PT 9- OFF OF OXYGEN NOW CONTINUE CURRENT ANTIBIOTICS PER ID DW PATIENT AND RN AND FAMILY USING WALKER TO MOVE MORE CONTINUE MONITOR DUE TO TV ENDOCARDITIS Objective Vitals Vital Signs Date Time Temp Pulse Resp B/P (MAP) Pulse Ox O2 Delivery O2 Flow Rate FiO2 12/01/16 12:00 98.8 108 20 129/81 (97) 94 12/01/16 09:00 93 21 12/01/16 08:00 99.1 99 18 142/87 (105) 93 12/01/16 08:00 97 12/01/16 07:15 Room Air 12/01/16 04:00 98.4 109 18 138/81 (100) 96 12/01/16 00:00 Nasal Cannula 4.00 12/01/16 00:00 98.0 96 18 127/81 (96) 95 11/30/16 21:00 98.7 11/30/16 20:03 Nasal Cannula 3.00 11/30/16 20:00 116 11/30/16 20:00 99.3 116 20 131/77 (95) 97 11/30/16 20:00 Nasal Cannula 4.00 11/30/16 16:00 98.8 98 18 140/81 (100) 99 I/O 11/30/16 11/30/16 11/30/16 12/01/16 12/01/16 12/01/16 07:00 15:00 23:00 07:00 15:00 23:00 Intake Total 840 ml Output Total 350 ml 600 ml 400 ml Balance -350 ml 240 ml -400 ml Intake Oral 840 ml Output Urine Total 350 ml 600 ml 400 ml # Bowel Movements 0 Result Diagram: 11/29/16 0811 11/29/16 0811 Other Results Laboratory Tests Test 11/29/16 08:11 White Blood Count 10.1 TH/MM3 Red Blood Count 3.75 MIL/MM3 Hemoglobin 9.9 GM/DL Hematocrit 30.4 % Mean Corpuscular Volume 81.2 FL Mean Corpuscular Hemoglobin 26.3 PG Mean Corpuscular Hemoglobin Concent 32.4 % Red Cell Distribution Width 16.4 % Platelet Count 134 TH/MM3 Mean Platelet Volume 8.2 FL Neutrophils (%) (Auto) 89.1 % Lymphocytes (%) (Auto) 4.8 % Monocytes (%) (Auto) 4.7 % Eosinophils (%) (Auto) 0.9 % Basophils (%) (Auto) 0.5 % Neutrophils # (Auto) 9.0 TH/MM3 Lymphocytes # (Auto) 0.5 TH/MM3 Monocytes # (Auto) 0.5 TH/MM3 Eosinophils # (Auto) 0.1 TH/MM3 Basophils # (Auto) 0.1 TH/MM3 CBC Comment DIFF FINAL Differential Comment Blood Urea Nitrogen 14 MG/DL Creatinine 0.84 MG/DL Random Glucose 76 MG/DL Total Protein 5.8 GM/DL Albumin 1.6 GM/DL Calcium Level 8.0 MG/DL Phosphorus Level 2.5 MG/DL Magnesium Level 1.8 MG/DL Alkaline Phosphatase 155 U/L Aspartate Amino Transf (AST/SGOT) 26 U/L Alanine Aminotransferase (ALT/SGPT) 39 U/L Total Bilirubin 0.8 MG/DL Sodium Level 140 MEQ/L Potassium Level 4.0 MEQ/L Chloride Level 113 MEQ/L Carbon Dioxide Level 18.2 MEQ/L Anion Gap 9 MEQ/L Estimat Glomerular Filtration Rate 100 ML/MIN Imaging Last Impressions Chest X-Ray 11/25/16 0600 Signed Impressions: Service Date/Time: Friday, November 25, 2016 02:53 - CONCLUSION: 1. Stable patchy airspace disease and slight interstitial prominence consistent with atypical infection or edema pattern. 2. Stable small right pleural effusion. 1. Checo Leon MD Lumbar Puncture Fluoroscopy 11/21/16 0000 Signed Impressions: Service Date/Time: Wednesday, November 23, 2016 15:08 - CONCLUSION: Uncomplicated fluoroscopically guided lumbar puncture with pressures as above. Horace Kirkland MD Thoracic Spine MRI 11/20/16 0000 Signed Impressions: Service Date/Time: Sunday, November 20, 2016 21:36 - CONCLUSION: 1. No focal abnormality within the thoracic spine. 2. There is edema/inflammatory change seen in the soft tissues to the left of the C7 and T1 spinous processes better seen on the cervical spine MRI examination. 3. Cavitary lesions in the lungs. Manolo Anne MD Lumbar Spine MRI 11/20/16 0000 Signed Impressions: Service Date/Time: Sunday, November 20, 2016 21:36 - CONCLUSION: 1. No areas of significant stenosis. The disc spaces are preserved. 2. Mild facet hypertrophy at the L3-L4 and L4-L5 old. 3. Nonspecific areas of edema within the soft tissues adjacent to the spinous processes throughout the lumbar spine. This can be seen secondary to some dependent edema. Inflammatory change cannot be excluded. It does appear fairly symmetric when comparing right to left. 4. Ascites. Manolo Anne MD Chest CT 11/20/16 Signed Impressions: Service Date/Time: Sunday, November 20, 2016 11:30 - CONCLUSION: Deterioration in the appearance of the chest with increasing size of nodules and consolidation. Worsening of an inflammatory process is suspected. Michael Youssef MD FACR Cervical Spine MRI 11/20/16 Signed Impressions: Service Date/Time: Sunday, November 20, 2016 21:36 - CONCLUSION: 1. 2.4 cm vague area of edema seen to the left of the spinous processes of C7 and T1 concerning for focal inflammatory/infectious change. The spinous processes themselves demonstrate normal signal. 2. Suspected hemangioma at the C7 vertebral body. 3. Fluid in the nasopharynx, oropharynx and hypopharynx. There is an NG tube and ET tube in place. Manolo Anne MD Brain MRI 11/20/16 Signed Impressions: Service Date/Time: Sunday, November 20, 2016 21:36 - CONCLUSION: 1. Abnormal gyriform signal abnormality in the left frontal and parietal regions associated with some minimally increased signal on the diffusion weighted images. Findings are nonspecific. Differential diagnosis includes an area of meningitis or leptomeningeal spread of tumor given history of malignancy. Infarction less likely. No associated mass effect. Recommend further evaluation with MRI brain with contrast to assess for abnormal meningeal enhancement. Bruno Cleaning MD Abdomen/Pelvis CT 11/20/16 Signed Impressions: Service Date/Time: Sunday, November 20, 2016 11:30 - CONCLUSION: Significant aeration appearance of the lungs. Generalized anasarca, negative for abscess. Adults abdominal abscess. Michael Youssef MD FACR Renal Ultrasound 11/15/16 Signed Impressions: Service Date/Time: Tuesday, November 15, 2016 10:26 - CONCLUSION: Normal examination. Katie Nevarez MD Objective Remarks GENERAL: AWAKE ALERT AND ORIENTED X3 SKIN: Warm and dry.TATTOOS HEAD: Atraumatic. Normocephalic. EYES: Pupils equal and round. No scleral icterus. No injection or drainage. EOMI ENT: No nasal bleeding or discharge. Mucous membranes pink and moist. TONGUE IS MIDLINE NECK: Trachea midline. No JVD. SUPPLE CARDIOVASCULAR: Regular rate and rhythm. S1, S2 NO S3 OR S4 POSITIVE MURMUR RESPIRATORY: No accessory muscle use. COARSE BREATH SOUNDS BL. Breath sounds equal bilaterally. GASTROINTESTINAL: Abdomen soft, non-tender, nondistended. Hepatic and splenic margins not palpable. MUSCULOSKELETAL: Extremities without clubbing, cyanosis, or edema. No obvious deformities. NEUROLOGICAL: Awake and alert. No obvious cranial nerve deficits. Motor grossly within normal limits. 4 out of 5 muscle strength in the arms and legs. Normal speech. PSYCHIATRIC: SLIGHTLY INAppropriate mood and affect; insight and judgment ABnormal. Procedures SP VDRF SP LP Medications and IVs Current Medications Acetaminophen (Tylenol) 650 mg ONCE ONCE PO Last administered on 11/15/16 07: 40; Start 11/15/16 at 07:30; Stop 11/15/16 at 07:31; Status DC Ondansetron HCl (Zofran Inj) 4 mg ONCE ONCE IV Last administered on 11/15/16 07:40; Start 11/15/16 at 07:30; Stop 11/15/16 at 07:31; Status DC Sodium Chloride 1,000 ml @ 1,000 mls/hr Q1H ONCE IV Last administered on 07:40; Start 11/15/16 at 07:24; Stop 11/15/16 at 08:23; Status DC Sodium Chloride 1,000 ml @ 1,000 mls/hr Q1H ONCE IV Last administered on 07:40; Start 11/15/16 at 07:24; Stop 11/15/16 at 08:23; Status DC Sodium Chloride 100 ml @ 1,000 mls/hr Q6M ONCE IV Last administered on 07:40; Start 11/15/16 at 07:24; Stop 11/15/16 at 07:29; Status DC Cefepime HCl 2000 mg/Sodium Chloride 100 ml @ 200 mls/hr ONCE ONCE IV Last administered on 11/15/16 08:53; Start 11/15/16 at 07:45; Stop 11/15/16 at 08:14 ; Status DC Azithromycin 500 mg/Sodium Chloride 250 ml @ 250 mls/hr ONCE ONCE IV Last administered on 11/15/16 07:48; Start 11/15/16 at 07:45; Stop 11/15/16 at 08:44 ; Status DC Albuterol/ Ipratropium (Duoneb Neb) 2 ampule ONCE ONCE NEB Last administered on 11/15/16 07:58; Start 11/15/16 at 08:00; Stop 11/15/16 at 08:01; Status DC Potassium Chloride (KCl) 20 meq ONCE ONCE PO ; Start 11/15/16 at 08:30; Stop at 08:31; Status DC Potassium Chloride 100 ml @ 50 mls/hr Q2H IV Last administered on 11/15/16 17 :03; Start 11/15/16 at 08:30; Stop 11/15/16 at 12:29; Status DC Morphine Sulfate (Morphine Inj) 2 mg ONCE ONCE IV PUSH Last administered on 08:53; Start 11/15/16 at 08:45; Stop 11/15/16 at 08:46; Status DC Pantoprazole Sodium (Protonix Inj) 40 mg DAILY IV Last administered on 08:47; Start 11/15/16 at 10:00 Albuterol/ Ipratropium (Duoneb Neb) 1 ampule Q6HR NEB INH Last administered on 11/19/16 03:16; Start 11/15/16 at 10:00; Stop 11/19/16 at 07:58; Status DC Ipratropium [place] (Atrovent Neb) 0.5 mg Q2HR NEB PRN INH WHEEZING Last administered on 11/18/16 01:12; Start 11/15/16 at 09:00; Stop 11/24/16 at 14:44 ; Status DC Miscellaneous Information 1 [id number] ; Start 11/15/16 at 09:00 Chlorhexidine Gluconate (Chlorhexidine 2% Cloth) Taper DAILY@04 TOP Last administered on 11/26/16 03:13; Start 11/16/16 at 04:00; Stop 11/12/17 at 03:59 Chlorhexidine Gluconate (Chlorhexidine 2% Cloth) 3 pack UNSCH PRN TOP HYGIENIC CARE; Start 11/15/16 at 09:00 Senna/Docusate Sodium (Marina-Colace) 1 tab BID PO Last administered on 11/22/16 21:52; Start 11/15/16 at 11:00; Stop 11/23/16 at 11:41; Status DC Magnesium Hydroxide (Milk Of Magnesia Liq) 30 ml Q12H PRN PO MILD - MODERATE CONSTIPATION; Start 11/15/16 at 09:00 Sennosides (Senokot) 17.2 mg Q12H PRN PO MODERATE - SEVERE CONSTIPATION; Start 11/15/16 at 09:00 Bisacodyl (Dulcolax Supp) 10 mg DAILY PRN RECTAL SEVERE CONSITIPATION; Start at 09:00 Lactulose (Lactulose Liq) 30 ml DAILY PRN PO SEVERE CONSITIPATION; Start at 09:00 Dextrose (D50w (Vial) Inj) 50 ml UNSCH PRN IV HYPOGLYCEMIA-SEE COMMENTS; Start 11/15/16 at 09:45 Glucagon (Glucagon Inj) 1 mg UNSCH PRN OTHER HYPOGLYCEMIA-SEE COMMENTS; Start 11/15/16 at 09:45 Insulin Human Regular (NovoLIN R SUPPLEMENTAL SCALE) 1 Q6H SQ Last administered on 11/21/16 22:24; Start 11/15/16 at 11:00; Stop 11/28/16 at 11:46; Status DC Sodium Chloride 1,000 ml @ 75 mls/hr [id number] IV Last administered on 11:37; Start 11/15/16 at 09:45; Stop 11/17/16 at 10:14; Status DC Vancomycin HCl 1000 mg/Sodium Chloride 250 ml @ 250 mls/hr ONCE ONCE IV Last administered on 11/15/16 10:27; Start 11/15/16 at 10:00; Stop 11/15/16 at 10:59 ; Status DC Piperacillin Sod/ Tazobactam Sod 50 ml @ 100 mls/hr Q6H IV Last administered on 11/16/16 11:37; Start 11/15/16 at 12:00; Stop 11/16/16 at 13:33; Status DC Azithromycin 500 mg/Sodium Chloride 250 ml @ 250 mls/hr Q24H IV ; Start at 08:00; Stop 11/16/16 at 08:00; Status DC Pharmacy Profile Note 0 ml @ 0 mls/hr UNSCH OTHER ; Start 11/15/16 at 10:00; Stop 11/17/16 at 11:03; Status DC Sodium Chloride 1,000 ml @ 999 mls/hr BOLUS ONCE IV Last administered on 11/15 15:16; Start 11/15/16 at 13:00; Stop 11/15/16 at 14:00; Status DC Oxycodone/ Acetaminophen (Percocet 5-325 Mg) 1 tab Q6H PRN PO pain; Start at 12:15; Stop 11/15/16 at 13:02; Status DC Hydromorphone HCl (Dilaudid Pf Inj) 1 mg Q3H PRN IV PUSH PAIN 1 TO 10 AND/OR AGITATION Last administered on 11/18/16 00:54; Start 11/15/16 at 13:00; Stop at 05:48; Status DC Oxycodone/ Acetaminophen (Percocet 5-325 Mg) 1 tab Q4H PRN PO PAIN 1-10 Last administered on 11/18/16 00:54; Start 11/15/16 at 13:00; Stop 11/18/16 at 05:48 ; Status DC Ondansetron HCl (Zofran Inj) 4 mg Q8H PRN IV PUSH NAUSEA OR VOMITING Last administered on 11/24/16 13:07; Start 11/15/16 at 13:15 Diltiazem HCl (Cardizem) 60 mg Q6HR PO Last administered on 11/17/16 23:39; Start 11/16/16 at 08:15; Stop 11/18/16 at 05:48; Status DC Vancomycin HCl 1250 mg/Sodium Chloride 262.5 ml @ 262.5 mls/ hr Q18H IV Last administered on 11/17/16 08:01; Start 11/16/16 at 14:00; Stop 11/17/16 at 11:03 ; Status DC Miscellaneous Information SPECIFIC LAB TO BE CONSTANTINO... ONCE ONCE .XX ; Start 11/18 at 19:45; Stop 11/18/16 at 19:46; Status Cancel Piperacillin Sod/ Tazobactam Sod 50 ml @ 100 mls/hr Q8H IV Last administered on 11/17/16 05:06; Start 11/16/16 at 20:00; Stop 11/17/16 at 07:33; Status DC Potassium Chloride 100 ml @ 50 mls/hr Q2H PRN IV For Potassium 2.8 - 3.2 mEq/L ; Start 11/17/16 at 10:15; Stop 11/18/16 at 06:12; Status DC Potassium Chloride 100 ml @ 50 mls/hr Q2H PRN IV For Potassium 2.8 - 3.2 mEq/ L Last administered on 11/17/16t 15:13; Start 11/17/16 at 10:15; Stop 11/18/16 at 06:12; Status DC Potassium Bicarb/ Potassium Chloride (K-Lyte Cl Eff) 50 meq UNSCH PRN PO For Potassium 3.3 - 3.5 mEq/L; Start 11/17/16 at 10:15; Stop 11/18/16 at 06:12; Status DC Potassium Chloride 100 ml @ 25 mls/hr UNSCH PRN IV For Potassium 3.3 - 3.5 mEq /L; Start 11/17/16 at 10:15; Stop 11/18/16 at 06:12; Status DC Potassium Chloride 100 ml @ 50 mls/hr Q2H PRN IV For Potassium 3.3 - 3.5 mEq/ L Last administered on 11/17/16t 17:30; Start 11/17/16 at 10:15; Stop 11/18/16 at 06:12; Status DC Magnesium Sulfate 4 gm/Sodium Chloride 100 ml @ 50 mls/hr UNSCH PRN IV For Magnesium 0.9 - 1.1 mg/dL; Start 11/17/16 at 10:15; Stop 11/18/16 at 06:12; Status DC Magnesium Oxide (Mag-Ox) 800 mg UNSCH PRN PO For Magnesium 1.2 - 1.6 mg/dL; Start 11/17/16 at 10:15; Stop 11/18/16 at 06:12; Status DC Magnesium Sulfate 2 gm/Sodium Chloride 100 ml @ 50 mls/hr UNSCH PRN IV For Magnesium 1.2 - 1.6 mg/dL; Start 11/17/16 at 10:15; Stop 11/18/16 at 06:12; Status DC Potassium Phosphate (K-Phos) 2,000 mg Q4H PRN PO For Phosphorus < 2.5 mg/dL; Start 11/17/16 at 10:15; Stop 11/18/16 at 06:12; Status DC Sodium Phosphate 30 mmol/Sodium Chloride 250 ml @ 42 mls/hr UNSCH PRN IV For Phosphorus < 2.5 mg/dL; Start 11/17/16 at 10:15; Stop 11/18/16 at 06:12; Status DC Potassium Phosphate (K-Phos) 2,000 mg UNSCH PRN PO/TUBE SEE LABEL COMMENTS; Start 11/17/16 at 10:15; Stop 11/18/16 at 06:12; Status DC Potassium Phosphate 30 mmol/ Sodium Chloride 260 ml @ 42 mls/hr UNSCH PRN IV SEE LABEL COMMENTS; Start 11/17/16 at 10:15; Stop 11/18/16 at 06:12; Status DC Bumetanide (Bumex Inj) 1 mg ONCE ONCE IV PUSH Last administered on 11/17/16 11:13; Start 11/17/16 at 10:15; Stop 11/18/16 at 01:32; Status DC Daptomycin 590 mg/ Sodium Chloride 100 ml @ 200 mls/hr Q24H IV Last administered on 12/01/16 13:07; Start 11/17/16 at 12:00 Rifampin (Rifampin) 150 mg Q12HR PO Last administered on 11/24/16 21:03; Start 11/17/16 at 21:00; Stop 11/25/16 at 11:11; Status DC Bumetanide (Bumex Inj) 1 mg ONCE ONCE IV PUSH ; Start 11/18/16 at 01:30; Stop 11/18/16 at 01:32; Status DC Methylprednisolone Sodium Succinate (SoluMEDROL INJ) 80 mg ONCE ONCE IM Last administered on 11/18/16 04:17; Start 11/18/16 at 01:30; Stop 11/18/16 at 01:31 ; Status DC Etomidate (Amidate Inj) 20 mg ONCE ONCE IV PUSH Last administered on 01:54; Start 11/18/16 at 01:30; Stop 11/18/16 at 01:31; Status DC Succinylcholine Chloride (Quelicin Inj) 100 mg ONCE ONCE IV PUSH Last administered on 11/18/16 01:54; Start 11/18/16 at 01:30; Stop 11/18/16 at 01:32 ; Status DC Propofol 100 ml @ 2.193 mls/ hr Q24H PRN IV SEDATION Last administered on 12:10; Start 11/18/16 at 01:27; Stop 11/19/16 at 16:48; Status DC Fentanyl Citrate 250 ml @ 5 mls/hr Q24H PRN IV SEDATION Last administered on 21:16; Start 11/18/16 at 01:27; Stop 11/19/16 at 16:41; Status DC Midazolam HCl 100 ml @ 2 mls/hr Q24H PRN IV SEDATION Last administered on 01:55; Start 11/18/16 at 01:27; Stop 11/23/16 at 11:41; Status DC Etomidate (Amidate Inj) 20 mg STK-MED ONCE .ROUTE ; Start 11/18/16 at 01:30; Stop 11/18/16 at 01:31; Status DC Propofol 100 ml @ As Directed STK-MED ONCE .ROUTE ; Start 11/18/16 at 01:32; Stop 11/18/16 at 01:33; Status DC Potassium Chloride 100 ml @ 50 mls/hr Q2H PRN IV For Potassium 2.8 - 3.2 mEq/L ; Start 11/18/16 at 02:15; Stop 11/18/16 at 06:12; Status DC Potassium Chloride 100 ml @ 50 mls/hr Q2H PRN IV For Potassium 2.8 - 3.2 mEq/L ; Start 11/18/16 at 02:15; Stop 11/18/16 at 06:12; Status DC Potassium Bicarb/ Potassium Chloride (K-Lyte Cl Eff) 50 meq UNSCH PRN PO For Potassium 3.3 - 3.5 mEq/L; Start 11/18/16 at 02:15; Stop 11/18/16 at 06:12; Status DC Potassium Chloride 100 ml @ 25 mls/hr UNSCH PRN IV For Potassium 3.3 - 3.5 mEq /L; Start 11/18/16 at 02:15; Stop 11/18/16 at 06:12; Status DC Potassium Chloride 100 ml @ 50 mls/hr Q2H PRN IV For Potassium 3.3 - 3.5 mEq/L ; Start 11/18/16 at 02:15; Stop 11/18/16 at 06:12; Status DC Magnesium Sulfate 4 gm/Sodium Chloride 100 ml @ 50 mls/hr UNSCH PRN IV For Magnesium 0.9 - 1.1 mg/dL; Start 11/18/16 at 02:15; Stop 11/18/16 at 06:12; Status DC Magnesium Oxide (Mag-Ox) 800 mg UNSCH PRN PO For Magnesium 1.2 - 1.6 mg/dL; Start 11/18/16 at 02:15; Stop 11/18/16 at 06:12; Status DC Magnesium Sulfate 2 gm/Sodium Chloride 100 ml @ 50 mls/hr UNSCH PRN IV For Magnesium 1.2 - 1.6 mg/dL; Start 11/18/16 at 02:15; Stop 11/18/16 at 06:12; Status DC Potassium Phosphate (K-Phos) 2,000 mg Q4H PRN PO For Phosphorus < 2.5 mg/dL; Start 11/18/16 at 02:15; Stop 11/18/16 at 06:12; Status DC Sodium Phosphate 30 mmol/Sodium Chloride 250 ml @ 42 mls/hr UNSCH PRN IV For Phosphorus < 2.5 mg/dL; Start 11/18/16 at 02:15; Stop 11/18/16 at 06:12; Status DC Potassium Phosphate (K-Phos) 2,000 mg UNSCH PRN PO/TUBE SEE LABEL COMMENTS; Start 11/18/16 at 02:15; Stop 11/18/16 at 06:12; Status DC Potassium Phosphate 30 mmol/ Sodium Chloride 260 ml @ 42 mls/hr UNSCH PRN IV SEE LABEL COMMENTS; Start 11/18/16 at 02:15; Stop 11/18/16 at 06:12; Status DC Sodium Bicarbonate 150 meq/Dextrose 1,150 ml @ 75 mls/hr [id number] IV Last administered on 11/18/16 04:17; Start 11/18/16 at 03:45; Stop 11/18/16 at 05:48 ; Status DC Sodium Chloride 1,000 ml @ 999 mls/hr BOLUS ONCE IV Last administered on 11/18 04:18; Start 11/18/16 at 03:45; Stop 11/18/16 at 04:45; Status DC Norepinephrine Bitartrate 4 mg/ Sodium Chloride 250 ml @ 7.5 mls/hr TITRATE PRN IV Blood pressure management Last administered on 11/18/16 01:55; Start at 03:45; Stop 11/18/16 at 07:51; Status DC Terbutaline Sulfate (Brethine Inj) 1 mg UNSCH PRN SQ For Extravasation; Start 11/18/16 at 03:45 Sodium Chloride 1,000 ml @ 100 mls/hr Q10H IV Last administered on 11/18/16 04:31; Start 11/18/16 at 04:30; Stop 11/18/16 at 05:48; Status DC Norepinephrine Bitartrate 4 mg/ Sodium Chloride 250 ml @ 7.5 mls/hr TITRATE PRN IV Blood pressure management; Start 11/18/16 at 05:30; Stop 11/18/16 at 06: 30; Status DC Vasopressin 40 units/Dextrose 100 ml @ 6 mls/hr [id number] IV ; Start 11/18/16 at 05:25; Stop 11/18/16 at 06:14; Status DC Bumetanide (Bumex Inj) 1 mg Q6H IV PUSH Last administered on 11/18/16 17:18; Start 11/18/16 at 06:00; Stop 11/20/16 at 08:02; Status DC Magnesium Oxide (Mag-Ox) 800 mg UNSCH PRN PO For Magnesium 1.2 - 1.6 mg/dL; Start 11/18/16 at 06:00; Stop 11/19/16 at 14:59; Status DC Magnesium Sulfate 4 gm/Sodium Chloride 100 ml @ 50 mls/hr UNSCH PRN IV For Magnesium 0.9 - 1.1 mg/dL; Start 11/18/16 at 06:00; Stop 11/19/16 at 14:59; Status DC Magnesium Sulfate 2 gm/Sodium Chloride 100 ml @ 50 mls/hr UNSCH PRN IV For Magnesium 1.2 - 1.6 mg/dL; Start 11/18/16 at 06:00; Stop 11/19/16 at 14:59; Status DC Potassium Chloride 100 ml @ 50 mls/hr Q2H PRN IV For Potassium 2.8 - 3.2 mEq/L ; Start 11/18/16 at 06:00; Stop 11/19/16 at 14:59; Status DC Potassium Chloride 100 ml @ 50 mls/hr Q2H PRN IV For Potassium 3.3 - 3.5 mEq/L ; Start 11/18/16 at 06:00; Stop 11/19/16 at 14:59; Status DC Potassium Chloride 100 ml @ 50 mls/hr Q2H PRN IV For Potassium 2.8 - 3.2 mEq/L ; Start 11/18/16 at 06:00; Stop 11/19/16 at 14:59; Status DC Potassium Chloride 100 ml @ 25 mls/hr UNSCH PRN IV For Potassium 3.3 - 3.5 mEq /L; Start 11/18/16 at 06:00; Stop 11/19/16 at 14:59; Status DC Potassium Phosphate (K-Phos) 2,000 mg Q4H PRN PO For Phosphorus < 2.5 mg/dL; Start 11/18/16 at 06:00; Stop 11/19/16 at 14:59; Status DC Potassium Phosphate (K-Phos) 2,000 mg UNSCH PRN PO/TUBE SEE LABEL COMMENTS; Start 11/18/16 at 06:00; Stop 11/19/16 at 14:59; Status DC Potassium Phosphate 30 mmol/ Sodium Chloride 260 ml @ 42 mls/hr UNSCH PRN IV SEE LABEL COMMENTS; Start 11/18/16 at 06:00; Stop 11/19/16 at 14:59; Status DC Sodium Phosphate 30 mmol/Sodium Chloride 250 ml @ 42 mls/hr UNSCH PRN IV For Phosphorus < 2.5 mg/dL; Start 11/18/16 at 06:00; Stop 11/19/16 at 14:59; Status DC Vasopressin 40 units/Dextrose 100 ml @ 1.5 mls/hr Q24H IV Last administered on 11/20/16 08:47; Start 11/18/16 at 05:54; Stop 11/23/16 at 11:41; Status DC Norepinephrine Bitartrate 16 mg/ Sodium Chloride 250 ml @ 7.5 mls/hr TITRATE PRN IV Blood pressure management; Start 11/18/16 at 06:45; Status Cancel Norepinephrine Bitartrate 16 mg/ Sodium Chloride 250 ml @ 1.87 mls/hr TITRATE PRN IV Maintain MAP > 65 mmHg Last administered on 11/19/16 07:52; Start at 06:45; Stop 11/25/16 at 09:52; Status DC Piperacillin Sod/ Tazobactam Sod 100 ml @ 200 mls/hr Q8H IV Last administered on 11/21/16 08:50; Start 11/18/16 at 08:00; Stop 11/21/16 at 10:28; Status DC Ceftaroline Fosamil 600 mg/ Sodium Chloride 100 ml @ 100 mls/hr Q8H IV Last administered on 11/19/16 09:02; Start 11/18/16 at 09:00; Stop 11/19/16 at 11:03 ; Status DC Bumetanide (Bumex Inj) 1 mg ONCE ONCE IV PUSH Last administered on 11/18/16 10:06; Start 11/18/16 at 10:00; Stop 11/18/16 at 10:01; Status DC Sodium Chloride 1,000 ml @ 100 mls/hr Q10H IV Last administered on 11/18/16 08:00; Start 11/18/16 at 10:00; Stop 11/18/16 at 19:31; Status DC Bumetanide 100 ml @ 4 mls/hr Q24H IV ; Start 11/18/16 at 18:13; Status Cancel Bumetanide 100 ml @ 4 mls/hr Q24H IV Last administered on 11/19/16 23:17; Start 11/18/16 at 19:00; Stop 11/20/16 at 17:02; Status DC Albuterol/ Ipratropium (Duoneb Neb) 1 ampule Q6HR NEB INH Last administered on 11/23/16 08:16; Start 11/19/16 at 10:00; Stop 11/23/16 at 09:59; Status DC Chlorothiazide Sodium (Diuril Inj) 500 mg ONCE ONCE IV Last administered on 10:03; Start 11/19/16 at 09:15; Stop 11/19/16 at 09:16; Status DC Acetazolamide Sodium (Diamox Inj) 500 mg ONCE ONCE IV PUSH Last administered on 11/19/16 10:03; Start 11/19/16 at 09:15; Stop 11/19/16 at 09:16; Status DC Spironolactone (Aldactone) 25 mg ONCE ONCE PO Last administered on 11/19/16 10:03; Start 11/19/16 at 09:00; Stop 11/19/16 at 09:02; Status DC Ceftaroline Fosamil 400 mg/ Sodium Chloride 100 ml @ 100 mls/hr Q8H IV Last administered on 11/21/16 00:51; Start 11/19/16 at 17:00; Stop 11/21/16 at 10:53; Status DC Fentanyl Citrate 250 ml @ 5 mls/hr TITRATE PRN IV Sedation Last administered on 11/24/16 06:41; Start 11/19/16 at 17:00; Stop 11/24/16 at 11:53; Status DC Propofol 100 ml @ 2.427 mls/ hr TITRATE PRN IV SEDATION Last administered on 08:50; Start 11/19/16 at 17:00; Stop 11/21/16 at 12:09; Status DC Chlorothiazide Sodium (Diuril Inj) 500 mg ONCE ONCE IV ; Start 11/20/16 at 06:30 ; Stop 11/20/16 at 08:23; Status DC Albumin Human (Albumin 25% Inj) 25 gm ONCE ONCE IV ; Start 11/20/16 at 06:30; Stop 11/20/16 at 06:31; Status DC Sodium Bicarbonate (Sodium Bicarbonate 8.4% Inj) 100 meq ONCE ONCE IV PUSH Last administered on 11/20/16 09:46; Start 11/20/16 at 09:45; Stop 11/20/16 at 09: 46; Status DC Bumetanide 100 ml @ 2 mls/hr Q24H IV Last administered on 11/20/16 18:00; Start 11/20/16 at 18:00; Stop 11/22/16 at 07:24; Status DC Ceftaroline Fosamil 400 mg/ Sodium Chloride 100 ml @ 100 mls/hr Q8H IV Last administered on 11/26/16 11:59; Start 11/21/16 at 11:00; Stop 11/26/16 at 13:53; Status DC Propofol 100 ml @ 2.19 mls/hr TITRATE PRN IV SEDATION Last administered on 11/24 04:33; Start 11/21/16 at 12:15; Stop 11/24/16 at 11:53; Status DC Acyclovir Sodium 730 mg/Sodium Chloride 150 ml @ 150 mls/hr Q8H IV Last administered on 11/24/16 04:50; Start 11/21/16 at 14:00; Stop 11/24/16 at 11:32; Status DC Midazolam HCl (Versed Inj) 2 mg ONCE ONCE IV PUSH Last administered on 16:39; Start 11/21/16 at 16:30; Stop 11/21/16 at 16:31; Status DC Water (Free Water) 300 ml Q6HR G-TUBE Last administered on 11/23/16 00:00; Start 11/22/16 at 07:30; Stop 11/23/16 at 07:23; Status DC Potassium Chloride 100 ml @ 25 mls/hr BOLUS ONCE IV Last administered on 08:16; Start 11/22/16 at 08:00; Stop 11/22/16 at 11:59; Status DC Acetaminophen (Tylenol) 650 mg Q6H PRN PO fever Last administered on 11/30/16 20:08; Start 11/22/16 at 11:45 Potassium Chloride 100 ml @ 50 mls/hr BOLUS ONCE IV Last administered on 14:40; Start 11/22/16 at 15:00; Stop 11/22/16 at 16:59; Status DC Potassium Chloride 100 ml @ 25 mls/hr Q4H IV Last administered on 11/23/16 01: 36; Start 11/22/16 at 23:15; Stop 11/23/16 at 07:14; Status DC Sodium Chloride 250 ml @ 15 mls/hr ONCE ONCE IV ; Start 11/22/16 at 23:15; Stop 11/23/16 at 15:54; Status DC Water (Free Water) 300 ml Q4HR G-TUBE Last administered on 11/24/16 03:51; Start 11/23/16 at 08:00; Stop 11/25/16 at 09:52; Status DC Dextrose 1,000 ml @ 84 mls/hr [id number] IV Last administered on 11/24/16 06:42; Start 11/23/16 at 08:00; Stop 11/24/16 at 11:53; Status DC Albuterol/ Ipratropium (Duoneb Neb) 1 ampule Q6HR NEB NEB Last administered on 11/24/16 08:09; Start 11/23/16 at 12:00; Stop 11/24/16 at 14:44; Status DC Potassium Chloride 100 ml @ 50 mls/hr Q2H PRN IV For Potassium 2.8 - 3.2 mEq/ L Last administered on 11/24/16 12:17; Start 11/24/16 at 07:30; Stop 11/26/16 at 10:46; Status DC Potassium Chloride 100 ml @ 50 mls/hr Q2H PRN IV For Potassium 2.8 - 3.2 mEq/L ; Start 11/24/16 at 07:30; Stop 11/26/16 at 10:46; Status DC Potassium Bicarb/ Potassium Chloride (K-Lyte Cl Eff) 50 meq UNSCH PRN PO For Potassium 3.3 - 3.5 mEq/L; Start 11/24/16 at 07:30; Stop 11/26/16 at 10:46; Status DC Potassium Chloride 100 ml @ 25 mls/hr UNSCH PRN IV For Potassium 3.3 - 3.5 mEq /L; Start 11/24/16 at 07:30; Stop 11/26/16 at 10:46; Status DC Potassium Chloride 100 ml @ 50 mls/hr Q2H PRN IV For Potassium 3.3 - 3.5 mEq/ L Last administered on 11/25/16 07:00; Start 11/24/16 at 07:30; Stop 11/26/16 at 10:46; Status DC Magnesium Sulfate 4 gm/Sodium Chloride 100 ml @ 50 mls/hr UNSCH PRN IV For Magnesium 0.9 - 1.1 mg/dL; Start 11/24/16 at 07:30; Stop 11/26/16 at 10:46; Status DC Magnesium Oxide (Mag-Ox) 800 mg UNSCH PRN PO For Magnesium 1.2 - 1.6 mg/dL; Start 11/24/16 at 07:30; Stop 11/26/16 at 10:46; Status DC Magnesium Sulfate 2 gm/Sodium Chloride 100 ml @ 50 mls/hr UNSCH PRN IV For Magnesium 1.2 - 1.6 mg/dL; Start 11/24/16 at 07:30; Stop 11/26/16 at 10:46; Status DC Potassium Phosphate (K-Phos) 2,000 mg Q4H PRN PO For Phosphorus < 2.5 mg/dL Last administered on 11/26/16 09:36; Start 11/24/16 at 07:30; Stop 11/26/16 at 10: 46; Status DC Sodium Phosphate 30 mmol/Sodium Chloride 250 ml @ 42 mls/hr UNSCH PRN IV For Phosphorus < 2.5 mg/dL; Start 11/24/16 at 07:30; Stop 11/26/16 at 10:46; Status DC Potassium Phosphate (K-Phos) 2,000 mg UNSCH PRN PO/TUBE SEE LABEL COMMENTS; Start 11/24/16 at 07:30; Stop 11/26/16 at 10:46; Status DC Potassium Phosphate 30 mmol/ Sodium Chloride 260 ml @ 42 mls/hr UNSCH PRN IV SEE LABEL COMMENTS; Start 11/24/16 at 07:30; Stop 11/26/16 at 10:46; Status DC Albuterol/ Ipratropium (Duoneb Neb) 1 ampule Q4HR NEB NEB Last administered on 11/28/16 08:16; Start 11/24/16 at 12:00; Stop 11/28/16 at 11:59; Status DC Albuterol/ Ipratropium (Duoneb Neb) 1 ampule Q2HR NEB PRN NEB SHORTNESS OF BREATH; Start 11/24/16 at 12:00 Acetaminophen/ Hydrocodone Bitart ([place] 10-325 Mg) 1 tab Q4H PRN PO PAIN SCALE 4 TO 10 Last administered on 12/01/16 12:57; Start 11/25/16 at 02:45 Zolpidem Tartrate (Ambien) 10 mg HS PRN PO insomnia Last administered on 23:14; Start 11/25/16 at 02:45 Guaifenesin (Mucinex Er) 600 mg BID PO Last administered on 12/01/16 08:45; Start 11/26/16 at 09:00 Calcium Chloride 1 gm/Sodium Chloride 100 ml @ 100 mls/hr ONCE ONCE IV Last administered on 11/26/16 11:59; Start 11/26/16 at 10:45; Stop 11/26/16 at 11:44; Status DC Calcium Carbonate (Oscal) 1,000 mg BID PO Last administered on 12/01/16 08:45 ; Start 11/26/16 at 11:00 Potassium Chloride (KCl) 40 meq Q12HR PO Last administered on 12/01/16 08:46; Start 11/27/16 at 12:15 Calcium Chloride 1 gm/Sodium Chloride 100 ml @ 100 mls/hr ONCE ONCE IV Last administered on 11/28/16 15:13; Start 11/28/16 at 14:00; Stop 11/28/16 at 14:59; Status DC Urinary Catheter: No A/P Assessment and Plan Assessment and Plan Assessment: 45yM with 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 continues to be critically ill, ongoing shock and renal failure. Recently extubated 11/24. Pending evaluation cerebritis versus meningeal carcinomatosis. Prognosis guarded NO LONGER IN SHOCK Plan Neuro: Metabolic encephalopathy-resolved - GCS 15 -UDS: Opiates, Cocaine 11/23 s/p LP showed clear CSF, normal protein and glc, 10 WBC. Follow up on CSF cx and Cytology. 11/20: MRI brain: Abnormal gyriform signal abnormality in the left frontal and parietal regions associated with some minimally increased signal on the diffusion weighted images.ddx meningitis or leptomeningeal spread of tumor given history of malignancy. Neuro is following 11/20: Cervical CT: 2.4 cm vague area of edema seen to the left of the spinous processes of C7 and T1 concerning for focal inflammatory/infectious change. The spinous processes themselves demonstrate normal signal.. Suspected hemangioma at the C7 vertebral body 11/21 EEG: Encephalopathy, no epileptiform features. RESOLVED Pulm: Acute hypoxic and hypercarbic respiratory failure Septic pulmonary emboli Pulmonary Edema Severe ARDS BETTER-RESOLVED - intubated 11/18 for worsening hypoxemia. Extubated 11/24 - Continue with vent support keep sat >92%. On PRVC RR 16, TV 550, IT;1.0, PEEP:5, FIO2 45% -Bronchodilators every 4 hours when necessary -CXR 11/25: Improving, small right bilateral pleural effusion -repeat CT chest 11/20: increasing size of nodules and consolidation. - 11/15 CT chest showed cavitary and irregular nodules throughout the lungs bilaterally. OFF OXYGEN NOW CV: Septic Shock Congestive Heart Failure Exacerbation secondary to valvulopathy Severe tricuspid regurgitation Pulmonary Edema -Monitor HR and BP keep MAP>65mmHg - Echo showed EF 50-55%, +Vegetations on TV, severe TR ENDOCARDITIS ON TV AND SEVERE TR : RACHEL Intravascular volume overload Hypernatremia..improving - Monitor renal function, I/O's, avoid nephrotoxins, place on electrolytes replacement protocol. Will need K replacement today. -Monitor sodium level, encourage free water intake Renal function improving with Cr: 0.9 today from 1.29 - Renal US 11/15: Unremarkable. Renal signed off 11/24- Dr. Gillis FEN/GI: Acute protein calorie malnutrition- moderate Anion-gap metabolic acidosis Intravascular volume overload Colon cancer on radiation treatment Hepatitis C THROMBOCYTOPENIA CHRONIC Speech evaluation- Mechanical soft with thin liquids Protonix 40mg IV daily for GI prophylaxis ID: MRSA Tricuspid Valve infective endocarditis s/p Septic Shock - ID on board - Continue abx per ID ( On daptomycin, Rifampin, Teflaro) monitor CK's. -s/p LP 11/23: Clear CSF, 10 WBC, normal protein and glc. Follow up on CSF cx and Cytology - Echo showed vegetations on TV. - 11/15, 11/16, 09/17 BC: MRSA, 11/18 BC: MRSA - 11/15 Urine cx: MRSA, 11/18 sputum: MRSA -BC 11/20,11/21,11/22, 11/23: NGTD Heme: Anemia secondary to chronic illness Thrombocytopenia secondary to hepatic dysfunction THROMBOCYTOPENIA - Monitor CBC - Patient s/p transfusion 3 units PRBC total on 11/22, stool Hemoccult negative -Continue to monitor LFTs Endo: Hyperglycemia of critical illness - SSI with Accu-Cheks for glycemic control.- STOP ACCUCHECKS GI prophylaxis with Protonix 40 milligrams daily and DVT prophylaxis with SCDs. Not on chemical anticoagulation prophylaxis due to thrombocytopenia. Lines: Right subclavian CVP placed 11/18- 11/24, peripheral IV's. AM LABS TRANSFER OUT OF ICU PT AND OT CASE MANAGEMENT FOR DC PLANNING HYPOKALEMIA REPLACE Discharge Planning WILL NEED IV ANTIBIOTICS AT DC Michael Hayden DO Dec 01, 2016 15:18
--- NOTE | 2016-12-01 15:33 | HHI.IDPN ---
Subjective Subjective Remarks is a 45 y/o CM with history of Rectal Cancer (Invasive moderately differentiated Adenocarcinoma with no prior lung or distant mets), and has no port or PICC line and has been receiving oral chemotherapy. Patient is followed by Dr. Vielka Harrell. Patient also sees colorectal surgeon and has undergone colonoscopy but no definite surgery. Patient also has been seeing Dr. Santana radiation oncologist and has been undergoing radiation therapy. Reportedly, the patient's last radiation therapy was on Wednesday before admission. Admitted with sepsis. Intubated. BC with MRSA. Sputum with MRSA, TTE with TV vegetatuin and severe TR. CTA with findings of pulmonary septic emboli. MRI cervical abnormal finidngs of inflammatory changes to the left of C7-T1 Infectious disease was consulted for the management of sepsis, pneumonia in an immune compromised patient. 100.1 F in last 48 hrs. diarrhea better co back pain, ambulates with walker, denies incontinence. No SOB or CP. No rash Antibiotics Dapto IV Lines Line sites with no e.o infection. Past Medical History reviewed. Allergies: Coded Allergies: No Known Allergies (Unverified , 11/15/16) Objective . Vital Signs Date Time Temp Pulse Resp B/P (MAP) Pulse Ox O2 Delivery O2 Flow Rate FiO2 12/01/16 12:00 98.8 108 20 129/81 (97) 94 12/01/16 09:00 93 21 12/01/16 08:00 99.1 99 18 142/87 (105) 93 12/01/16 08:00 97 12/01/16 07:15 Room Air 12/01/16 04:00 98.4 109 18 138/81 (100) 96 12/01/16 00:00 Nasal Cannula 4.00 12/01/16 00:00 98.0 96 18 127/81 (96) 95 11/30/16 21:00 98.7 11/30/16 20:03 Nasal Cannula 3.00 11/30/16 20:00 116 11/30/16 20:00 99.3 116 20 131/77 (95) 97 11/30/16 20:00 Nasal Cannula 4.00 11/30/16 16:00 98.8 98 18 140/81 (100) 99 . Microbiology Date/Time Source Procedure Growth Status 11/30/16 21:30 Blood Peripheral Aerobic Blood Culture - Preliminary NO GROWTH IN 1 DAY Resulted 11/30/16 21:30 Blood Peripheral Anaerobic Blood Culture - Preliminary NO GROWTH IN 1 DAY Resulted 11/30/16 21:25 Blood Peripheral Aerobic Blood Culture - Preliminary NO GROWTH IN 1 DAY Resulted 11/30/16 21:25 Blood Peripheral Anaerobic Blood Culture - Preliminary NO GROWTH IN 1 DAY Resulted Imaging Last Impressions Chest X-Ray 11/25/16 0600 Signed Impressions: Service Date/Time: Friday, November 25, 2016 02:53 - CONCLUSION: 1. Stable patchy airspace disease and slight interstitial prominence consistent with atypical infection or edema pattern. 2. Stable small right pleural effusion. 1. Checo Leon MD Lumbar Puncture Fluoroscopy 11/21/16 0000 Signed Impressions: Service Date/Time: Wednesday, November 23, 2016 15:08 - CONCLUSION: Uncomplicated fluoroscopically guided lumbar puncture with pressures as above. Horace Kirkland MD Thoracic Spine MRI 11/20/16 Signed Impressions: Service Date/Time: Sunday, November 20, 2016 21:36 - CONCLUSION: 1. No focal abnormality within the thoracic spine. 2. There is edema/inflammatory change seen in the soft tissues to the left of the C7 and T1 spinous processes better seen on the cervical spine MRI examination. 3. Cavitary lesions in the lungs. Manolo Anne MD Lumbar Spine MRI 11/20/16 0000 Signed Impressions: Service Date/Time: Sunday, November 20, 2016 21:36 - CONCLUSION: 1. No areas of significant stenosis. The disc spaces are preserved. 2. Mild facet hypertrophy at the L3-L4 and L4-L5 old. 3. Nonspecific areas of edema within the soft tissues adjacent to the spinous processes throughout the lumbar spine. This can be seen secondary to some dependent edema. Inflammatory change cannot be excluded. It does appear fairly symmetric when comparing right to left. 4. Ascites. Manolo Anne MD Chest CT 11/20/16 0000 Signed Impressions: Service Date/Time: Sunday, November 20, 2016 11:30 - CONCLUSION: Deterioration in the appearance of the chest with increasing size of nodules and consolidation. Worsening of an inflammatory process is suspected. Michael Youssef MD FACR Cervical Spine MRI 11/20/16 0000 Signed Impressions: Service Date/Time: Sunday, November 20, 2016 21:36 - CONCLUSION: 1. 2.4 cm vague area of edema seen to the left of the spinous processes of C7 and T1 concerning for focal inflammatory/infectious change. The spinous processes themselves demonstrate normal signal. 2. Suspected hemangioma at the C7 vertebral body. 3. Fluid in the nasopharynx, oropharynx and hypopharynx. There is an NG tube and ET tube in place. Manolo Anne MD Brain MRI 11/20/16 0000 Signed Impressions: Service Date/Time: Sunday, November 20, 2016 21:36 - CONCLUSION: 1. Abnormal gyriform signal abnormality in the left frontal and parietal regions associated with some minimally increased signal on the diffusion weighted images. Findings are nonspecific. Differential diagnosis includes an area of meningitis or leptomeningeal spread of tumor given history of malignancy. Infarction less likely. No associated mass effect. Recommend further evaluation with MRI brain with contrast to assess for abnormal meningeal enhancement. Bruno Cleaning MD Abdomen/Pelvis CT 11/20/16 0000 Signed Impressions: Service Date/Time: Sunday, November 20, 2016 11:30 - CONCLUSION: Significant aeration appearance of the lungs. Generalized anasarca, negative for abscess. Adults abdominal abscess. Michael Youssef MD FACR Renal Ultrasound 11/15/16 0000 Signed Impressions: Service Date/Time: Tuesday, November 15, 2016 10:26 - CONCLUSION: Normal examination. Katie Nevarez MD Physical Exam GENERAL: awake, alert comfortable comfortable SKIN: No rashes, ecchymoses or lesions. HEAD: Atraumatic. Normocephalic. No temporal or scalp tenderness. EYES: Pupils equal round and reactive. Extraocular motions intact. No scleral icterus. No injection or drainage. ENT: Nose without bleeding, purulent drainage or septal hematoma. NECK: Trachea midline. Supple, nontender, no meningeal signs. CARDIOVASCULAR: Tachycardic, no rub RESPIRATORY:clear to auscultation GASTROINTESTINAL: Abdomen soft, non-tender, nondistended. MUSCULOSKELETAL: Extremities without clubbing, cyanosis, or edema. NEUROLOGICAL: awake alert non focal Psych could not be assessed. IV line sites with no evidence of infection. Assessment & Plan Remarks Septic Shock with MODS (fever, tachy, low BP, bandemia, source: lung, endocarditis) on admission. Ongoing sepsis. MRSA bacteremia, TV endocarditis with severe TR. Possible CL infection new vs ongoing seeding due to line being placed in middle of bacteremia. Abnormal MRI brain, ?septic emboli likely meningitis/cerebritis (partially treated at this point) Lung lesions: septic emboli most likely. Other differentials include cancer related mets. Very less likely to be fungal or TB. Acute renal failure: prerenal, sepsis. Acute metabolic encephalopathy: sepsis, less likely to be meningitis. Hyponatremia: Infection, metabolic, meningitis Hepatitis C positive. Rectal ca sp neoadjuvant XRT, chemo New fever, low grade x 1 Recommendations: Continue Daptomycin IV (Re: Worsening clinically, resp distress, back pain, neck pain ? further dissemination). Does not cover Pneumonia. MRI concerning for possible cerebritis (likely partially treated when imaging obtained). CXR today: decreased AE on right side ? pleural effusion vs new consolidation. 2D ECHO: follow up. Plan on repeat MRI brain, MRI L spine and CT chest next week. Patient's Mom will help supervise treatment. Pt admitted to IV drugs in front on Mom and promises to not use drugs. He is aware that doing so can lead to new infections, worsening infections, new sepsis and or morbidity including paralysis. Follow cultures. follow clinically. Hopefully home next week. Mom reports no power at her place to refrigerate medications. Pt undergoing PT/OT. Needs oxygen on discharge possibly. Lucille Lizama MD Dec 01, 2016 15:33
--- NOTE | 2016-12-01 16:13 | RADRPT ---
EXAM DATE/TIME: 12/01/2016 15:29 [facility] COMPARISON: CHEST SINGLE AP, November 20, 2016, 8:15. CHEST SINGLE AP, November 22, 2016, 11:08. CHEST SINGLE AP, November 25, 2016, 2:53. INDICATIONS : Shortness of breath. MEDICAL HISTORY : Carcinoma, colon. SURGICAL HISTORY : None. ENCOUNTER: Subsequent ACUITY: 2 weeks PAIN SCORE: 0/10 LOCATION: Bilateral chest FINDINGS: A single AP portable semierect view of the chest was obtained and again demonstrates patchy airspace disease greatest along the periphery of both lungs. The study is more Midinspiratory. There is blunti ng of the right costophrenic angle. The heart size is at the upper limits of normal. The bony thorax remains intact. CONCLUSION: Patchy airspace disease again noted greatest along the lung periphery. The right cost ophrenic angle is blunted consistent with a small effusion. Giuliano Damian MD on December 01, 2016 at 16:10 Board Certified Radiologist. This report was verified electronically.
[2016-12-01] MEDS: ACETAMINOPHEN 325 MG TAB PO PRN (21:19)
[2016-12-02] VITALS (8 sets, daily range): BP systolic 130–135; BP diastolic 80–92; PULSE 104–120; RESP 16–20; TEMP 98.4–100.8; O2SAT 92–97
[2016-12-02] MEDS: ACETAMINOPHEN/HYDROcodone 325 MG/10 MG TAB PO PRN ×5 (01:32→21:07)
[2016-12-02] MEDS: CHLORHEXIDINE GLUCONATE 2 % 1 PACK (2 CLOTHS) TOP SCH (03:57)
[2016-12-02 04:24] LABS: AUTOMATED NEUTROPHIL # 5.7 TH/MM3 (1.8-7.7); BASOPHIL % 0.7 % (0.0-2.0); EOSINOPHIL # 0.1 TH/MM3 (0-0.4); EOSINOPHIL % 1.6 % (0.0-4.0); HEMO FLAGS DIFF FINAL; LYMPH % 7.4 % (9.0-44.0); LYMPHOCYTE # 0.5 TH/MM3 (1.0-4.8); MEAN CORPUSCULAR HEMOGLOBIN 26.5 PG (27.0-34.0); MEAN CORPUSCULAR HGB CONC 32.7 % (32.0-36.0); MONO % 6.3 % (0.0-8.0); PLATELET COUNT 133 TH/MM3 (150-450); RED BLOOD COUNT 3.83 MIL/MM3 (4.50-5.90); WHITE BLOOD COUNT 6.8 TH/MM3 (4.0-11.0)
[2016-12-02 04:46] LABS: BICARBONATE 22.9 MEQ/L (21.0-32.0); MAGNESIUM 1.9 MG/DL (1.5-2.5); POTASSIUM 3.7 MEQ/L (3.5-5.1); TOTAL BILIRUBIN ADULT 0.7 MG/DL (0.2-1.0)
[2016-12-02 04:51] LABS: CALCIUM-PROTEIN CORRECTED 7.4 MG/DL (8.5-10.1)
[2016-12-02] MEDS ORDERED: CALCIUM GLUCONATE 10% 1 GM/10 ML VIAL IV PUSH ONE (05:15)
[2016-12-02] MEDS ORDERED: CALCIUM GLUCONATE INJ 2 GM in SODIUM CHLORIDE 0.9% INJ 100 ML IV ONE (06:00)
[2016-12-02] MEDS: ACETAMINOPHEN 325 MG TAB PO PRN (06:23)
[2016-12-02] MEDS: POTASSIUM CHLORIDE 10 MEQ CONTROLLED RELEASE TAB PO SCH ×2 (10:16→21:07)
[2016-12-02] MEDS: guaiFENesin E.R. 600 MG TAB PO SCH ×2 (10:16→21:07)
[2016-12-02] MEDS: PANTOPRAZOLE SODIUM 40 MG VIAL IV SCH (10:16)
[2016-12-02] MEDS: DAPTOMYCIN IV SCH (10:17)
[2016-12-02] MEDS: SODIUM CHLORIDE 0.9% IV SCH (10:17)
[2016-12-02] MEDS: CALCIUM CARBONATE 1.25 GM (CA 500 MG) TAB PO SCH ×2 (10:17→21:07)
[2016-12-02] MEDS ORDERED: IOHEXOL 350 MG/ML 10 ML VIAL (for RAD DIAG) IVCONTRAST ONE (13:14)
--- NOTE | 2016-12-02 13:33 | RADRPT ---
EXAM DATE/TIME: 12/02/2016 13:06 [facility] COMPARISON: CT THORAX W/O CONTRAST, November 20, 2016, 11:30. CHEST SINGLE AP, December 01, 2016, 15:29. CT T HORAX W CONTRAST, July 22, 2016, 18:08. INDICATIONS : Evaluate for pneumonia. IV CONTRAST: 65 cc Omnipaque 350 (iohexol) IV RADIATION DOSE: 3.73 CTDIvol (mGy) MEDICAL HISTORY : Carcinoma, rectal. SURGICAL HISTORY : None. ENCOUNTER: Subsequent ACUITY: 2 weeks PAIN SCALE: 0/10 LOCATION: cranial TECHNIQUE: Volumetric scanning of the chest was performed. Using automated exposure control and adjustment of t he mA and/or kV according to patient size, radiation dose was kept as low as reasonably achievable to obtain optimal diagnostic quality images. DICOM format image data is available electronically for review and comparison. Follow-up recommendations for detected pulmonary nodules are based at a minimum on nodule size and pa tient risk factors according to Fleischner Society Guidelines. FINDINGS: LUNGS: Interval improvement in diffuse numerous bilateral cavitary pulmonary nodules. There is also interval near resolution of patchy diffuse bilateral airspace consolidation. Mild residual airspace consolida tion at the lung bases likely reflect compressive atelectasis. PLEURA: Small to moderate, right greater than left, with simple appearing bilateral pleural effusions. MEDIASTINUM: Stable trace pericardial effusion. The heart is otherwise unremarkable. Stable subcentimeter simple l ymph nodes. AXILLAE: Within normal limits. No lymphadenopathy. SKELETAL: Within normal limits for patient age. MISCELLANEOUS: The visualized upper abdominal organs demonstrate no acute abnormality. CONCLUSION: 1. Interval improvement in diffuse numerous bilateral cavitary pulmonary nodules with near interval r esolution of intervening patchy diffuse bilateral airspace consolidations. Findings are compatible wi th improving diffuse/atypical infection. 2. Small to moderate, right greater than left, simple appearing bilateral pleural effusions. Checo Leon MD on December 02, 2016 at 13:25 Board Certified Radiologist. This report was verified electronically.
--- NOTE | 2016-12-02 14:43 | HHI.PR ---
Subjective Remarks He is in bed, family at bedside. He appears in not acute distress at this time. Says he has sometimes chest pain or shortness of breath however he feels much better after she is walking. No fever or chills. No cough. No lower extremity edema. Objective Vitals Vital Signs Date Time Temp Pulse Resp B/P (MAP) Pulse Ox O2 Delivery O2 Flow Rate FiO2 12/02/16 12:00 98.5 108 20 132/92 (105) 96 12/02/16 09:42 96 21 12/02/16 09:00 93 Room Air 12/02/16 08:00 98.7 104 18 134/89 (104) 92 12/02/16 04:00 100.8 104 16 134/85 (101) 94 12/02/16 00:00 100.2 104 16 135/83 (100) 94 12/01/16 20:00 100.8 115 18 169/104 (125) 96 12/01/16 20:00 111 12/01/16 20:00 Room Air 12/01/16 16:00 98.3 110 18 137/84 (101) 96 I/O 12/01/16 12/01/16 12/01/16 12/02/16 12/02/16 12/02/16 07:00 15:00 23:00 07:00 15:00 23:00 Intake Total 720 ml Output Total 400 ml 600 ml 500 ml Balance -400 ml 120 ml -500 ml Intake Oral 720 ml Output Urine Total 400 ml 600 ml 500 ml # Bowel Movements 1 Result Diagram: 12/02/169 12/02/169 Imaging Last Impressions Chest CT 12/02/16 0000 Signed Impressions: Service Date/Time: Friday, December 02, 2016 13:06 - CONCLUSION: 1. Interval improvement in diffuse numerous bilateral cavitary pulmonary nodules with near interval resolution of intervening patchy diffuse bilateral airspace consolidations. Findings are compatible with improving diffuse/atypical infection. 2. Small to moderate, right greater than left, simple appearing bilateral pleural effusions. Checo Leon MD Chest X-Ray 12/01/16 0000 Signed Impressions: Service Date/Time: Thursday, December 01, 2016 15:29 - CONCLUSION: Patchy airspace disease again noted greatest along the lung periphery. The right costophrenic angle is blunted consistent with a small effusion. Giuliano Damian MD Lumbar Puncture Fluoroscopy 11/21/16 Signed Impressions: Service Date/Time: Wednesday, November 23, 2016 15:08 - CONCLUSION: Uncomplicated fluoroscopically guided lumbar puncture with pressures as above. Horace Kirkland MD Thoracic Spine MRI 11/20/16 Signed Impressions: Service Date/Time: Sunday, November 20, 2016 21:36 - CONCLUSION: 1. No focal abnormality within the thoracic spine. 2. There is edema/inflammatory change seen in the soft tissues to the left of the C7 and T1 spinous processes better seen on the cervical spine MRI examination. 3. Cavitary lesions in the lungs. Manolo Anne MD Lumbar Spine MRI 11/20/16 Signed Impressions: Service Date/Time: Sunday, November 20, 2016 21:36 - CONCLUSION: 1. No areas of significant stenosis. The disc spaces are preserved. 2. Mild facet hypertrophy at the L3-L4 and L4-L5 old. 3. Nonspecific areas of edema within the soft tissues adjacent to the spinous processes throughout the lumbar spine. This can be seen secondary to some dependent edema. Inflammatory change cannot be excluded. It does appear fairly symmetric when comparing right to left. 4. Ascites. Manolo Anne MD Cervical Spine MRI 11/20/16 Signed Impressions: Service Date/Time: Sunday, November 20, 2016 21:36 - CONCLUSION: 1. 2.4 cm vague area of edema seen to the left of the spinous processes of C7 and T1 concerning for focal inflammatory/infectious change. The spinous processes themselves demonstrate normal signal. 2. Suspected hemangioma at the C7 vertebral body. 3. Fluid in the nasopharynx, oropharynx and hypopharynx. There is an NG tube and ET tube in place. Manolo Anne MD Brain MRI 11/20/16 Signed Impressions: Service Date/Time: Sunday, November 20, 2016 21:36 - CONCLUSION: 1. Abnormal gyriform signal abnormality in the left frontal and parietal regions associated with some minimally increased signal on the diffusion weighted images. Findings are nonspecific. Differential diagnosis includes an area of meningitis or leptomeningeal spread of tumor given history of malignancy. Infarction less likely. No associated mass effect. Recommend further evaluation with MRI brain with contrast to assess for abnormal meningeal enhancement. Bruno Cleaning MD Abdomen/Pelvis CT 11/20/16 0000 Signed Impressions: Service Date/Time: Sunday, November 20, 2016 11:30 - CONCLUSION: Significant aeration appearance of the lungs. Generalized anasarca, negative for abscess. Adults abdominal abscess. Michael Youssef MD FACR Renal Ultrasound 11/15/16 0000 Signed Impressions: Service Date/Time: Tuesday, November 15, 2016 10:26 - CONCLUSION: Normal examination. Katie Nevarez MD Objective Remarks GENERAL: Middle age M, awake, alert. SKIN: Warm and dry. Multiple tattoos. CARDIOVASCULAR: Regular rate and rhythm. S1, S2 NO S3 OR S4 , + systolic murmur RESPIRATORY: No accessory muscle use. COARSE BREATH SOUNDS BL. Breath sounds equal bilaterally. GASTROINTESTINAL: Abdomen soft, non-tender, nondistended. Hepatic and splenic margins not palpable. MUSCULOSKELETAL: Extremities without clubbing, cyanosis, or edema. No obvious deformities. NEUROLOGICAL: Awake and alert. No obvious cranial nerve deficits. Motor grossly within normal limits. 4 out of 5 muscle strength in the arms and legs. Normal speech. PSYCHIATRIC: poor insight and judgment. 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 continues to be critically ill, ongoing shock and renal failure. Recently extubated 11/24. Pending evaluation cerebritis versus meningeal carcinomatosis. Prognosis guarded NO LONGER IN SHOCK Plan Neuro: Metabolic encephalopathy-resolved - GCS 15 -UDS: Opiates, Cocaine 11/23 s/p LP showed clear CSF, normal protein and glc, 10 WBC. Follow up on CSF cx and Cytology. 11/20: MRI brain: Abnormal gyriform signal abnormality in the left frontal and parietal regions associated with some minimally increased signal on the diffusion weighted images.ddx meningitis or leptomeningeal spread of tumor given history of malignancy. Neuro is following 11/20: Cervical CT: 2.4 cm vague area of edema seen to the left of the spinous processes of C7 and T1 concerning for focal inflammatory/infectious change. The spinous processes themselves demonstrate normal signal.. Suspected hemangioma at the C7 vertebral body 11/21 EEG: Encephalopathy, no epileptiform features. RESOLVED Pulm: Acute hypoxic and hypercarbic respiratory failure Septic pulmonary emboli Pulmonary Edema Severe ARDS BETTER-RESOLVED - intubated 11/18 for worsening hypoxemia. Extubated 11/24 - Continue with vent support keep sat >92%. On PRVC RR 16, TV 550, IT;1.0, PEEP:5, FIO2 45% -Bronchodilators every 4 hours when necessary -CXR 11/25: Improving, small right bilateral pleural effusion -repeat CT chest 11/20: increasing size of nodules and consolidation. - 11/15 CT chest showed cavitary and irregular nodules throughout the lungs bilaterally. OFF OXYGEN NOW CV: Septic Shock Congestive Heart Failure Exacerbation secondary to valvulopathy Severe tricuspid regurgitation Pulmonary Edema -Monitor HR and BP keep MAP>65mmHg - Echo showed EF 50-55%, +Vegetations on TV, severe TR ENDOCARDITIS ON TV AND SEVERE TR : RACHEL Intravascular volume overload Hypernatremia..improving - Monitor renal function, I/O's, avoid nephrotoxins, place on electrolytes replacement protocol. Will need K replacement today. -Monitor sodium level, encourage free water intake Renal function improving with Cr: 0.9 today from 1.29 - Renal US 11/15: Unremarkable. Renal signed off 11/24- Dr. Gillis FEN/GI: Acute protein calorie malnutrition- moderate Anion-gap metabolic acidosis Intravascular volume overload Colon cancer on radiation treatment Hepatitis C THROMBOCYTOPENIA CHRONIC Speech evaluation- Mechanical soft with thin liquids Protonix 40mg IV daily for GI prophylaxis ID: MRSA Tricuspid Valve infective endocarditis s/p Septic Shock - ID on board - Continue abx per ID ( On daptomycin, Rifampin, Teflaro) monitor CK's. -s/p LP 11/23: Clear CSF, 10 WBC, normal protein and glc. Follow up on CSF cx and Cytology - Echo showed vegetations on TV. - 11/15, 11/16, 09/17 BC: MRSA, 11/18 BC: MRSA - 11/15 Urine cx: MRSA, 11/18 sputum: MRSA -BC 11/20,11/21,11/22, 11/23: NGTD Heme: Anemia secondary to chronic illness Thrombocytopenia secondary to hepatic dysfunction THROMBOCYTOPENIA - Monitor CBC - Patient s/p transfusion 3 units PRBC total on 11/22, stool Hemoccult negative -Continue to monitor LFTs Endo: Hyperglycemia of critical illness - SSI with Accu-Cheks for glycemic control.- STOP ACCUCHECKS GI prophylaxis with Protonix 40 milligrams daily and DVT prophylaxis with SCDs. Not on chemical anticoagulation prophylaxis due to thrombocytopenia. Lines: Right subclavian CVP placed 11/18- 11/24, peripheral IV's. PT AND OT CASE MANAGEMENT FOR DC PLANNING HYPOKALEMIA REPLACE Discharge Planning WILL NEED IV ANTIBIOTICS AT DC, THERE [facility] NEXT WEEK Beatrice Bocanegra MD Dec 02, 2016 14:43
--- NOTE | 2016-12-02 16:05 | RADRPT ---
EXAM DATE/TIME: 12/02/2016 14:26 [facility] COMPARISON: US KIDNEY/RENAL/BLADDER, November 15, 2016, 10:26. INDICATIONS : Right pleural effusion. MEDICAL HISTORY : Rectal cancer. IV drug user. Urticaria. Eczema. Abdominal pain. Nausea/vomiting. MRSA. SURGICAL HISTORY : Radiation therapy. ENCOUNTER: Initial ACUITY: 1 day PAIN SCORE: 0/10 LOCATION: Right chest MEASUREMENTS: SKIN TO PARIETAL PLEURA: 1.5 cm SKIN TO MAX SAFE DEPTH: 3.2 cm ESTIMATED FLUID VOLUME: 616 cc FLUID COMPOSITION: simple FINDINGS: Pleural effusion as above. A mariajose was placed on the skin surface superficial to the pleural fluid col lection. CONCLUSION: Sizable right pleural effusion. Estimated volume is 600 cc. Alexander Youssef MD on December 02, 2016 at 16:03 Board Certified Radiologist. This report was verified electronically.
--- NOTE | 2016-12-02 19:06 | HHI.PR ---
Subjective Remarks 45 YOWM with TV Endocarditis,Lung cavities likly septic emboli No diarrhoea No Fever no Abd pain Low grade fever CT chest R>L pl effusion Objective Vital Signs Vital Signs Date Time Temp Pulse Resp B/P (MAP) Pulse Ox O2 Delivery O2 Flow Rate FiO2 12/02/16 16:00 98.7 111 18 134/88 (103) 95 12/02/16 12:00 98.5 108 20 132/92 (105) 96 12/02/16 09:42 96 21 12/02/16 09:00 93 Room Air 12/02/16 08:00 98.7 104 18 134/89 (104) 92 12/02/16 04:00 100.8 104 16 134/85 (101) 94 12/02/16 00:00 100.2 104 16 135/83 (100) 94 12/01/16 20:00 100.8 115 18 169/104 (125) 96 12/01/16 20:00 111 12/01/16 20:00 Room Air I/O 12/01/16 12/01/16 12/01/16 12/02/16 12/02/16 12/02/16 07:00 15:00 23:00 07:00 15:00 23:00 Intake Total 720 ml Output Total 400 ml 600 ml 500 ml Balance -400 ml 120 ml -500 ml Intake Oral 720 ml Output Urine Total 400 ml 600 ml 500 ml # Bowel Movements 1 Result Diagram: 12/02/1631812/02/16318 Objective Remarks GENERAL: MBMN WM, NAD SKIN: Warm and dry. HEAD: Normocephalic. EYES: No scleral icterus. No injection or drainage. NECK: Supple, trachea midline. No JVD or lymphadenopathy. CARDIOVASCULAR: Regular rate and rhythm without murmurs, gallops, or rubs. RESPIRATORY: Breath sounds equal bilaterally. No accessory muscle use. GASTROINTESTINAL: Abdomen soft, non-tender, nondistended. MUSCULOSKELETAL: No cyanosis, or edema. BACK: Nontender without obvious deformity. No CVA tenderness. A/P Assessment and Plan Pneumonia Septic emboli TV Endocarditis IV drug use Pleural effusion PLAN Cont Abx per ID Aerosol nebs Stable from pulm standpoint US Guided Right Pl Thoracentesis Agustin Marc MD Dec 02, 2016 19:06
[2016-12-02 22:23] LABS: HEMATOCRIT 30.3 % (39.0-51.0); MEAN CELL VOLUME 80.9 FL (80.0-100.0); MEAN CORPUSCULAR HEMOGLOBIN 26.3 PG (27.0-34.0); MEAN CORPUSCULAR HGB CONC 32.5 % (32.0-36.0); PLATELET COUNT 136 TH/MM3 (150-450); RED BLOOD COUNT 3.74 MIL/MM3 (4.50-5.90); RED CELL DISTRIBUTION WIDTH 17.6 % (11.6-17.2); REVIEW FLAG FINAL; WHITE BLOOD COUNT 6.6 TH/MM3 (4.0-11.0)
[2016-12-02 22:36] LABS: APTT (PATIENT) 28.7 SEC (24.3-30.1); INTERNATIONAL NORMALIZED RATIO 1.1 RATIO; PROTHROMBIN TIME - PATIENT 12.5 SEC (9.8-11.6)
[2016-12-03] VITALS (9 sets, daily range): BP systolic 130–143; BP diastolic 83–93; PULSE 100–130; RESP 18–20; TEMP 96.6–98.6; O2SAT 94–98
[2016-12-03] MEDS: ACETAMINOPHEN/HYDROcodone 325 MG/10 MG TAB PO PRN ×5 (02:26→20:17)
[2016-12-03] MEDS: CHLORHEXIDINE GLUCONATE 2 % 1 PACK (2 CLOTHS) TOP SCH (04:00)
--- NOTE | 2016-12-03 09:19 | HHI.PR ---
Subjective Remarks In bed, says he is sob at times but mostly with effort. Cough + scant sputum production whitish /brown in color. No fever ro chills. Has mild frontal headache. no n/v/d/c. Objective Vitals Vital Signs Date Time Temp Pulse Resp B/P (MAP) Pulse Ox O2 Delivery O2 Flow Rate FiO2 12/03/16 08:00 98.6 104 20 143/83 (103) 94 12/03/16 04:00 98.2 109 18 143/87 (105) 95 12/03/16 00:00 98.6 105 20 130/88 (102) 97 12/02/16 20:00 98.4 109 20 130/80 (97) 97 12/02/16 20:00 Room Air 12/02/16 20:00 110 12/02/16 16:00 98.7 111 18 134/88 (103) 95 12/02/16 12:00 98.5 108 20 132/92 (105) 96 12/02/16 10:00 120 12/02/16 09:42 96 21 I/O 12/02/16 12/02/16 12/02/16 12/03/16 12/03/16 12/03/16 07:00 15:00 23:00 07:00 15:00 23:00 Intake Total 120 ml 1080 ml Output Total 500 ml 1750 ml Balance -500 ml 120 ml -670 ml Intake Oral 1080 ml IV Total 120 ml Output Urine Total 500 ml 1750 ml # Bowel Movements 0 Result Diagram: 12/02/16 2108 12/02/16 0319 Imaging Last Impressions Chest Ultrasound 12/02/16 0000 Signed Impressions: Service Date/Time: Friday, December 02, 2016 14:26 - CONCLUSION: Sizable right pleural effusion. Estimated volume is 600 cc. Alexander Youssef MD Chest CT 12/02/16 0000 Signed Impressions: Service Date/Time: Friday, December 02, 2016 13:06 - CONCLUSION: 1. Interval improvement in diffuse numerous bilateral cavitary pulmonary nodules with near interval resolution of intervening patchy diffuse bilateral airspace consolidations. Findings are compatible with improving diffuse/atypical infection. 2. Small to moderate, right greater than left, simple appearing bilateral pleural effusions. Checo Leon MD Chest X-Ray 12/01/16 0000 Signed Impressions: Service Date/Time: Thursday, December 01, 2016 15:29 - CONCLUSION: Patchy airspace disease again noted greatest along the lung periphery. The right costophrenic angle is blunted consistent with a small effusion. Giuliano Damian MD Lumbar Puncture Fluoroscopy 11/21/16 Signed Impressions: Service Date/Time: Wednesday, November 23, 2016 15:08 - CONCLUSION: Uncomplicated fluoroscopically guided lumbar puncture with pressures as above. Horace Kirkland MD Thoracic Spine MRI 11/20/16 Signed Impressions: Service Date/Time: Sunday, November 20, 2016 21:36 - CONCLUSION: 1. No focal abnormality within the thoracic spine. 2. There is edema/inflammatory change seen in the soft tissues to the left of the C7 and T1 spinous processes better seen on the cervical spine MRI examination. 3. Cavitary lesions in the lungs. Manolo Anne MD Lumbar Spine MRI 11/20/16 Signed Impressions: Service Date/Time: Sunday, November 20, 2016 21:36 - CONCLUSION: 1. No areas of significant stenosis. The disc spaces are preserved. 2. Mild facet hypertrophy at the L3-L4 and L4-L5 old. 3. Nonspecific areas of edema within the soft tissues adjacent to the spinous processes throughout the lumbar spine. This can be seen secondary to some dependent edema. Inflammatory change cannot be excluded. It does appear fairly symmetric when comparing right to left. 4. Ascites. Manolo Anne MD Cervical Spine MRI 11/20/16 Signed Impressions: Service Date/Time: Sunday, November 20, 2016 21:36 - CONCLUSION: 1. 2.4 cm vague area of edema seen to the left of the spinous processes of C7 and T1 concerning for focal inflammatory/infectious change. The spinous processes themselves demonstrate normal signal. 2. Suspected hemangioma at the C7 vertebral body. 3. Fluid in the nasopharynx, oropharynx and hypopharynx. There is an NG tube and ET tube in place. Manolo Anne MD Brain MRI 11/20/16 Signed Impressions: Service Date/Time: Sunday, November 20, 2016 21:36 - CONCLUSION: 1. Abnormal gyriform signal abnormality in the left frontal and parietal regions associated with some minimally increased signal on the diffusion weighted images. Findings are nonspecific. Differential diagnosis includes an area of meningitis or leptomeningeal spread of tumor given history of malignancy. Infarction less likely. No associated mass effect. Recommend further evaluation with MRI brain with contrast to assess for abnormal meningeal enhancement. Bruno Cleaning MD Abdomen/Pelvis CT 11/20/16 0000 Signed Impressions: Service Date/Time: Sunday, November 20, 2016 11:30 - CONCLUSION: Significant aeration appearance of the lungs. Generalized anasarca, negative for abscess. Adults abdominal abscess. Michael Youssef MD FACR Renal Ultrasound 11/15/16 0000 Signed Impressions: Service Date/Time: Tuesday, November 15, 2016 10:26 - CONCLUSION: Normal examination. Katie Nevarez MD Objective Remarks GENERAL: Middle age M, awake, alert. SKIN: Warm and dry. Multiple tattoos. CARDIOVASCULAR: Regular rate and rhythm. S1, S2 NO S3 OR S4 , + systolic murmur RESPIRATORY: No accessory muscle use. Decreased breath sounds bibasilar worse on the right. No wheezing. GASTROINTESTINAL: Abdomen soft, non-tender, nondistended. Hepatic and splenic margins not palpable. MUSCULOSKELETAL: Extremities without clubbing, cyanosis, or edema. No obvious deformities. NEUROLOGICAL: Awake and alert. No obvious cranial nerve deficits. Motor grossly within normal limits. 4 out of 5 muscle strength in the arms and legs. Normal speech. PSYCHIATRIC: poor insight and judgment. 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 continues to be critically ill, ongoing shock and renal failure. Recently extubated 11/24. Pending evaluation cerebritis versus meningeal carcinomatosis. Prognosis guarded NO LONGER IN SHOCK Plan Neuro: Metabolic encephalopathy-resolved - GCS 15 -UDS: Opiates, Cocaine 11/23 s/p LP showed clear CSF, normal protein and glc, 10 WBC. Follow up on CSF cx and Cytology. 11/20: MRI brain: Abnormal gyriform signal abnormality in the left frontal and parietal regions associated with some minimally increased signal on the diffusion weighted images.ddx meningitis or leptomeningeal spread of tumor given history of malignancy. Neuro is following 11/20: Cervical CT: 2.4 cm vague area of edema seen to the left of the spinous processes of C7 and T1 concerning for focal inflammatory/infectious change. The spinous processes themselves demonstrate normal signal.. Suspected hemangioma at the C7 vertebral body 11/21 EEG: Encephalopathy, no epileptiform features. RESOLVED Pulm: Acute hypoxic and hypercarbic respiratory failure Septic pulmonary emboli Pulmonary Edema Severe ARDS BETTER-RESOLVED Right pleural effusion by US 12/02 plan for thoracentesis - intubated 11/18 for worsening hypoxemia. Extubated 11/24 - Continue with vent support keep sat >92%. On PRVC RR 16, TV 550, IT;1.0, PEEP:5, FIO2 45% -Bronchodilators every 4 hours when necessary -CXR 11/25: Improving, small right bilateral pleural effusion -repeat CT chest 11/20: increasing size of nodules and consolidation. - 11/15 CT chest showed cavitary and irregular nodules throughout the lungs bilaterally. OFF OXYGEN NOW CV: Septic Shock Congestive Heart Failure Exacerbation secondary to valvulopathy Severe tricuspid regurgitation Pulmonary Edema -Monitor HR and BP keep MAP>65mmHg - Echo showed EF 50-55%, +Vegetations on TV, severe TR ENDOCARDITIS ON TV AND SEVERE TR : RACHEL Intravascular volume overload Hypernatremia..improving - Monitor renal function, I/O's, avoid nephrotoxins, place on electrolytes replacement protocol. Will need K replacement today. -Monitor sodium level, encourage free water intake Renal function improving with Cr: 0.9 today from 1. - Renal US 11/15: Unremarkable. Renal signed off 11/24- Dr. Gillis FEN/GI: Acute protein calorie malnutrition- moderate Anion-gap metabolic acidosis Intravascular volume overload Colon cancer on radiation treatment Hepatitis C THROMBOCYTOPENIA CHRONIC Speech evaluation- Mechanical soft with thin liquids Protonix 40mg IV daily for GI prophylaxis ID: MRSA Tricuspid Valve infective endocarditis s/p Septic Shock - ID on board - Continue abx per ID ( On daptomycin, Rifampin, Teflaro) monitor CK's. -s/p LP 11/23: Clear CSF, 10 WBC, normal protein and glc. Follow up on CSF cx and Cytology - Echo showed vegetations on TV. - 11/15, 11/16, 09/17 BC: MRSA, 11/18 BC: MRSA - 11/15 Urine cx: MRSA, 11/18 sputum: MRSA -BC 11/20,11/21,11/22, 11/23: NGTD Heme: Anemia secondary to chronic illness Thrombocytopenia secondary to hepatic dysfunction THROMBOCYTOPENIA - Monitor CBC - Patient s/p transfusion 3 units PRBC total on 11/22, stool Hemoccult negative -Continue to monitor LFTs Endo: Hyperglycemia of critical illness - SSI with Accu-Cheks for glycemic control.- STOP ACCUCHECKS GI prophylaxis with Protonix 40 milligrams daily and DVT prophylaxis with SCDs. Not on chemical anticoagulation prophylaxis due to thrombocytopenia. Lines: Right subclavian CVP placed 11/18- 11/24, peripheral IV's. PT AND OT CASE MANAGEMENT FOR DC PLANNING HYPOKALEMIA REPLACE Discharge Planning With R pleural effusion plan for thoracentesis 12/03/16. [place] NEED IV ANTIBIOTICS AT [place], THERE IS NO POWER AT HIS MOMS [facility], 2/ [facility] [place] NEXT WEEK Beatrice Bocanegra MD Dec 03, 2016 09:19
--- NOTE | 2016-12-03 11:09 | RADRPT ---
EXAM DATE/TIME: 12/03/2016 10:30 [facility] COMPARISON: CT THORAX W CONTRAST, December 02, 2016, 13:06. CHEST SINGLE AP, December 01, 2016, 15:29. INDICATIONS : Right sided thoracentesis. MEDICAL HISTORY : Rectal carcinoma SURGICAL HISTORY : None. ENCOUNTER: Initial ACUITY: 1 day PAIN SCORE: 6/10 LOCATION: Right upper chest FINDINGS: There is no evidence of pneumothorax status-post right thoracentesis. Scattered pulmonary nodular de nsities are again noted and are unchanged. The heart is stable. CONCLUSION: 1. No pneumothorax status-post right thoracentesis. 2. Stable scattered pulmonary nodules bilaterally. Zeyad Bryant MD on December 03, 2016 at 10:50 Board Certified Radiologist. This report was verified electronically.
--- NOTE | 2016-12-03 11:20 | RADRPT ---
EXAM DATE/TIME: 12/03/2016 09:59 [facility] COMPARISON: No previous studies available for comparison. INDICATIONS : Right pleural effusion. MEDICAL HISTORY : Rectal cancer. Abdominal pain. Nausea/vomiting. IV drug abuse. Eczema. Urticaria. MRSA. SURGICAL HISTORY : Radiation therapy. ENCOUNTER: Initial ACUITY: 2 days PAIN SCORE: 6/10 LOCATION: Right chest FLUID: Total volume of 800 cc of clear, dark kenn fluid was removed. Fluid was sent to lab for ordered studies. TECHNIQUE: 1. Ultrasound guidance for thoracentesis. 2. Thoracentesis. The risks, benefits, and alternatives to ultrasound guided thoracentesis were explained to the patien t in lay simple terms, including the risk of bleeding and infection. Written and verbal informed con sent was obtained. Appropriate area for thoracentesis was marked under ultrasound guidance with the patient in the uprig ht position. Overlying skin was prepped and draped in the usual sterile fashion and with local anest hetic, a dermatotomy was made with an 11 blade scalpel. A 6 [place] thoracentesis catheter was placed in the pleural space and fluid was removed. Catheter was then removed and a sterile dressing applie d. There were no immediate complications. The patient tolerated the procedure well and the left the ultrasound suite in stable condition. Chest radiograph is to be obtained. CONCLUSION: Uncomplicated ultrasound guided thoracentesis. Zeyad Bryant MD on December 03, 2016 at 11:18 Board Certified Radiologist. This report was verified electronically.
[2016-12-03] MEDS: CALCIUM CARBONATE 1.25 GM (CA 500 MG) TAB PO SCH ×2 (11:27→20:17)
[2016-12-03] MEDS: guaiFENesin E.R. 600 MG TAB PO SCH ×2 (11:27→20:16)
[2016-12-03] MEDS: POTASSIUM CHLORIDE 10 MEQ CONTROLLED RELEASE TAB PO SCH ×2 (11:27→20:17)
[2016-12-03] MEDS: PANTOPRAZOLE SODIUM 40 MG VIAL IV SCH (11:28)
[2016-12-03] MEDS: SODIUM CHLORIDE 0.9% IV SCH (11:36)
[2016-12-03] MEDS: DAPTOMYCIN IV SCH (11:36)
[2016-12-03 12:02] LABS: TOTAL PROTEIN,PLEURAL FLUID 3.3 GM/DL
[2016-12-03 13:34] LABS: PLEURAL FLUID LYMPHS 20 %
--- NOTE | 2016-12-03 16:24 | HHI.PR ---
Subjective Remarks 45 YOWM with TV Endocarditis,Lung cavities likly septic emboli No diarrhoea No Fever no Abd pain Had Right TC, 900 cc fluid removed Less sob Objective Vital Signs Vital Signs Date Time Temp Pulse Resp B/P (MAP) Pulse Ox O2 Delivery O2 Flow Rate FiO2 12/03/16 12:28 18 12/03/16 12:00 98.3 119 18 137/88 (104) 94 12/03/16 10:58 98.0 130 18 131/90 (104) 98 12/03/16 10:35 98.0 128 18 143/93 (110) 95 12/03/16 10:14 98.0 120 18 133/89 (104) 97 12/03/16 08:00 98.6 104 20 143/83 (103) 94 12/03/16 08:00 Room Air 12/03/16 08:00 100 12/03/16 08:00 95 21 12/03/16 04:00 98.2 109 18 143/87 (105) 95 12/03/16 00:00 98.6 105 20 130/88 (102) 97 12/02/16 20:00 98.4 109 20 130/80 (97) 97 12/02/16 20:00 Room Air 12/02/16 20:00 110 I/O 12/02/16 12/02/16 12/02/16 12/03/16 12/03/16 12/03/16 07:00 15:00 23:00 07:00 15:00 23:00 Intake Total 120 ml 1080 ml Output Total 500 ml 1750 ml Balance -500 ml 120 ml -670 ml Intake Oral 1080 ml IV Total 120 ml Output Urine Total 500 ml 1750 ml # Bowel Movements 0 Result Diagram: 12/02/16210712/02/16318 Objective Remarks GENERAL: MBMN WM, NAD SKIN: Warm and dry. HEAD: Normocephalic. EYES: No scleral icterus. No injection or drainage. NECK: Supple, trachea midline. No JVD or lymphadenopathy. CARDIOVASCULAR: Regular rate and rhythm without murmurs, gallops, or rubs. RESPIRATORY: Breath sounds equal bilaterally. No accessory muscle use. GASTROINTESTINAL: Abdomen soft, non-tender, nondistended. MUSCULOSKELETAL: No cyanosis, or edema. BACK: Nontender without obvious deformity. No CVA tenderness. A/P Assessment and Plan Pneumonia Septic emboli TV Endocarditis IV drug use Pleural effusion PLAN Cont Abx per ID Aerosol nebs Stable from pulm standpoint Check pl fluid results. Agustin Marc MD Dec 03, 2016 16:24
--- NOTE | 2016-12-03 17:23 | ECHRPT ---
Indication: FOLLOW UP ENDOCARDITIS CONCLUSIONS Normal left ventricular size. Wall thickness is measured at the upper limits of normal. The left ventricular systolic function is mildly reduced with an estimated ejection fraction in the range of 45- 50%. The right ventriclar size is upper limits of normal. The right atrial size is [id number] dilated. Mobile vegetation seen on the tricuspid valve There is severe tricuspid regurgitation. There is estimated mild pulmonary hypertension present (range 43 mmHg). BP: / HR: Rhythm: Sinus MEASUREMENTS (Male / Female) Normal Values Technical Quality:Good 2D ECHO LV Diastolic Diameter PLAX 4.2 cm 4.2 - 5.9 / 3.9 - 5.3 cm LV Systolic Diameter PLAX 3.3 cm IVS Diastolic Thickness 1.2 cm 0.6 - 1.0 / 0.6 - 0.9 cm LVPW Diastolic Thickness 0.8 cm 0.6 - 1.0 / 0.6 - 0.9 cm LV Relative Wall Thickness 0.5 RV Internal Dim ED PLAX 2.9 cm DOPPLER TR Peak Velocity 289.0 cm/s TR Peak Gradient 33.4 mmHg FINDINGS LEFT VENTRICLE Normal left ventricular size. Wall thickness is measured at the upper limits of normal. The left ventricular systolic function is mildly reduced with an estimated ejection fraction in the range of 45- 50%. RIGHT VENTRICLE The right ventriclar size is upper limits of normal. RIGHT ATRIUM The right atrial size is [id number] dilated. TRICUSPID VALVE Mobile vegetation seen on the tricuspid valve There is severe tricuspid regurgitation. There is estimated mild pulmonary hypertension present (range 43 mmHg). Darrell Farnsworth MD (Electronically Signed) Final Date:03 December 2016 17:22
[2016-12-03] MEDS: ZOLPIDEM TARTRATE 10 MG TAB PO PRN (22:50)
[2016-12-04] VITALS: BP 129/84; PULSE 102; RESP 20; TEMP 98.4; O2SAT 98
[2016-12-04] MEDS: ACETAMINOPHEN/HYDROcodone 325 MG/10 MG TAB PO PRN ×5 (01:58→19:52)
[2016-12-04] MEDS: CHLORHEXIDINE GLUCONATE 2 % 1 PACK (2 CLOTHS) TOP SCH (03:37)
[2016-12-04 04:00] VITALS: BP 131/96; PULSE 125; RESP 20; TEMP 98.6; O2SAT 95
[2016-12-04 08:00] VITALS: BP 138/95; PULSE 116; PULSE 119; RESP 20; TEMP 98.1; O2SAT 94
[2016-12-04] MEDS: PANTOPRAZOLE SODIUM 40 MG VIAL IV SCH (09:26)
[2016-12-04] MEDS: CALCIUM CARBONATE 1.25 GM (CA 500 MG) TAB PO SCH (09:26)
[2016-12-04] MEDS: guaiFENesin E.R. 600 MG TAB PO SCH ×2 (09:27→19:51)
[2016-12-04] MEDS: POTASSIUM CHLORIDE 10 MEQ CONTROLLED RELEASE TAB PO SCH ×2 (09:27→19:51)
[2016-12-04 12:00] VITALS: BP 130/81; PULSE 130; RESP 20; TEMP 97.9; O2SAT 96
[2016-12-04] MEDS: SODIUM CHLORIDE 0.9% IV SCH (13:14)
[2016-12-04] MEDS: DAPTOMYCIN IV SCH (13:14)
--- NOTE | 2016-12-04 14:03 | HHI.PR ---
Subjective Remarks Seen earlier today, family at bedside. Patiemt had 800 cc fluid removed yesterday during thoracentesis. Says his breathing is improved some. Coughing no blood in it. No fever or chills. No n/v/d/c. Denies chest pain. Eatign fairly well. Objective Vitals Vital Signs Date Time Temp Pulse Resp B/P (MAP) Pulse Ox O2 Delivery O2 Flow Rate FiO2 12/04/16 11:35 18 12/04/16 08:00 98.1 116 20 138/95 (109) 94 12/04/16 04:00 98.6 125 20 131/96 (108) 95 12/04/16 00:00 98.4 102 20 129/84 (99) 98 12/03/16 20:00 112 12/03/16 19:45 Room Air 12/03/16 16:00 96.6 106 20 139/89 (106) 96 I/O 12/03/16 12/03/16 12/03/16 12/04/16 12/04/16 12/04/16 07:00 15:00 23:00 07:00 15:00 23:00 Intake Total 1080 ml 720 ml 550 ml Output Total 1750 ml 700 ml 575 ml Balance -670 ml 20 ml -25 ml Intake Oral 1080 ml 720 ml 550 ml Output Urine Total 1750 ml 700 ml 575 ml # Bowel Movements 0 1 1 Result Diagram: 12/02/16210712/02/16 0319 Imaging Last Impressions Thoracentesis Ultrasound 12/03/16 0600 Signed Impressions: Service Date/Time: November 09:59 - CONCLUSION: Uncomplicated ultrasound guided thoracentesis. Zeyad Bryant MD Chest X-Ray 12/03/16 0000 Signed Impressions: Service Date/Time: November 10:30 - CONCLUSION: 1. No pneumothorax status-post right thoracentesis. 2. Stable scattered pulmonary nodules bilaterally. Zeyad Bryant MD Chest Ultrasound 12/02/16 0000 Signed Impressions: Service Date/Time: Friday, December 02, 2016 14:26 - CONCLUSION: Sizable right pleural effusion. Estimated volume is 600 cc. Alexander Youssef MD Chest CT 12/02/16 0000 Signed Impressions: Service Date/Time: Friday, December 02, 2016 13:06 - CONCLUSION: 1. Interval improvement in diffuse numerous bilateral cavitary pulmonary nodules with near interval resolution of intervening patchy diffuse bilateral airspace consolidations. Findings are compatible with improving diffuse/atypical infection. 2. Small to moderate, right greater than left, simple appearing bilateral pleural effusions. Checo Leon MD Lumbar Puncture Fluoroscopy 11/21/16 Signed Impressions: Service Date/Time: Wednesday, November 23, 2016 15:08 - CONCLUSION: Uncomplicated fluoroscopically guided lumbar puncture with pressures as above. Horace Kirkland MD Thoracic Spine MRI 11/20/16 Signed Impressions: Service Date/Time: Sunday, November 20, 2016 21:36 - CONCLUSION: 1. No focal abnormality within the thoracic spine. 2. There is edema/inflammatory change seen in the soft tissues to the left of the C7 and T1 spinous processes better seen on the cervical spine MRI examination. 3. Cavitary lesions in the lungs. Manolo Anne MD Lumbar Spine MRI 11/20/16 Signed Impressions: Service Date/Time: Sunday, November 20, 2016 21:36 - CONCLUSION: 1. No areas of significant stenosis. The disc spaces are preserved. 2. Mild facet hypertrophy at the L3-L4 and L4-L5 old. 3. Nonspecific areas of edema within the soft tissues adjacent to the spinous processes throughout the lumbar spine. This can be seen secondary to some dependent edema. Inflammatory change cannot be excluded. It does appear fairly symmetric when comparing right to left. 4. Ascites. Manolo Anne MD Cervical Spine MRI 11/20/16 Signed Impressions: Service Date/Time: Sunday, November 20, 2016 21:36 - CONCLUSION: 1. 2.4 cm vague area of edema seen to the left of the spinous processes of C7 and T1 concerning for focal inflammatory/infectious change. The spinous processes themselves demonstrate normal signal. 2. Suspected hemangioma at the C7 vertebral body. 3. Fluid in the nasopharynx, oropharynx and hypopharynx. There is an NG tube and ET tube in place. Manolo Anne MD Brain MRI 11/20/16 Signed Impressions: Service Date/Time: Sunday, November 20, 2016 21:36 - CONCLUSION: 1. Abnormal gyriform signal abnormality in the left frontal and parietal regions associated with some minimally increased signal on the diffusion weighted images. Findings are nonspecific. Differential diagnosis includes an area of meningitis or leptomeningeal spread of tumor given history of malignancy. Infarction less likely. No associated mass effect. Recommend further evaluation with MRI brain with contrast to assess for abnormal meningeal enhancement. Bruno Cleaning MD Abdomen/Pelvis CT 11/20/16 0000 Signed Impressions: Service Date/Time: Sunday, November 20, 2016 11:30 - CONCLUSION: Significant aeration appearance of the lungs. Generalized anasarca, negative for abscess. Adults abdominal abscess. Michael Youssef MD FACR Renal Ultrasound 11/15/16 0000 Signed Impressions: Service Date/Time: Tuesday, November 15, 2016 10:26 - CONCLUSION: Normal examination. Katie Nevarez MD Objective Remarks GENERAL: Middle age M, awake, alert. SKIN: Warm and dry. Multiple tattoos. CARDIOVASCULAR: Regular rate and rhythm. S1, S2 NO S3 OR S4 , + systolic murmur RESPIRATORY: No accessory muscle use. Decreased breath sounds bibasilar worse on the right. No wheezing. GASTROINTESTINAL: Abdomen soft, non-tender, nondistended. Hepatic and splenic margins not palpable. MUSCULOSKELETAL: Extremities without clubbing, cyanosis, or edema. No obvious deformities. NEUROLOGICAL: Awake and alert. No obvious cranial nerve deficits. Motor grossly within normal limits. 4 out of 5 muscle strength in the arms and legs. Normal speech. PSYCHIATRIC: poor insight and judgment. 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 continues to be critically ill, ongoing shock and renal failure. Recently extubated 11/24. Pending evaluation cerebritis versus meningeal carcinomatosis. Prognosis guarded NO LONGER IN SHOCK Plan Neuro: Metabolic encephalopathy-resolved - GCS 15 -UDS: Opiates, Cocaine 11/23 s/p LP showed clear CSF, normal protein and glc, 10 WBC. Follow up on CSF cx and Cytology. 11/20: MRI brain: Abnormal gyriform signal abnormality in the left frontal and parietal regions associated with some minimally increased signal on the diffusion weighted images.ddx meningitis or leptomeningeal spread of tumor given history of malignancy. Neuro is following 11/20: Cervical CT: 2.4 cm vague area of edema seen to the left of the spinous processes of C7 and T1 concerning for focal inflammatory/infectious change. The spinous processes themselves demonstrate normal signal.. Suspected hemangioma at the C7 vertebral body 11/21 EEG: Encephalopathy, no epileptiform features. RESOLVED Pulm: Acute hypoxic and hypercarbic respiratory failure Septic pulmonary emboli Pulmonary Edema Severe ARDS BETTER-RESOLVED Right pleural effusion by US 12/02 s/p thoracentesis on 12/03/16 with 800 cc fluid removal - intubated 11/18 for worsening hypoxemia. Extubated 11/24 - Continue with vent support keep sat >92%. On PRVC RR 16, TV 550, IT;1.0, PEEP:5, FIO2 45% -Bronchodilators every 4 hours when necessary -CXR 11/25: Improving, small right bilateral pleural effusion -repeat CT chest 11/20: increasing size of nodules and consolidation. - 11/15 CT chest showed cavitary and irregular nodules throughout the lungs bilaterally. OFF OXYGEN NOW CV: Septic Shock Congestive Heart Failure Exacerbation secondary to valvulopathy Severe tricuspid regurgitation Pulmonary Edema -Monitor HR and BP keep MAP>65mmHg - Echo showed EF 50-55%, +Vegetations on TV, severe TR ENDOCARDITIS ON TV AND SEVERE TR : RACHEL Intravascular volume overload Hypernatremia..improving - Monitor renal function, I/O's, avoid nephrotoxins, place on electrolytes replacement protocol. Monitor and replace K as need. -Monitor sodium level, encourage free water intake Renal function improving with Cr: 0.9 today from 1. - Renal US 11/15: Unremarkable. Renal signed off 11/24- Dr. Gillis FEN/GI: Acute protein calorie malnutrition- moderate Anion-gap metabolic acidosis Intravascular volume overload Colon cancer on radiation treatment Hepatitis C THROMBOCYTOPENIA CHRONIC Speech evaluation- Mechanical soft with thin liquids Protonix 40mg IV daily for GI prophylaxis ID: MRSA Tricuspid Valve infective endocarditis s/p Septic Shock - ID on board - Continue abx per ID ( On daptomycin, Rifampin, Teflaro) monitor CK's. -s/p LP 11/23: Clear CSF, 10 WBC, normal protein and glc. Follow up on CSF cx and Cytology - Echo showed vegetations on TV. - 11/15, 11/16, 09/17 BC: MRSA, 11/18 BC: MRSA - 11/15 Urine cx: MRSA, 11/18 sputum: MRSA -BC 11/20,11/21,11/22, 11/23: NGTD Heme: Anemia secondary to chronic illness Thrombocytopenia secondary to hepatic dysfunction THROMBOCYTOPENIA - Monitor CBC - Patient s/p transfusion 3 units PRBC total on 11/22, stool Hemoccult negative -Continue to monitor LFTs Endo: Hyperglycemia of critical illness - SSI with Accu-Cheks for glycemic control.- STOP ACCUCHECKS GI prophylaxis with Protonix 40 milligrams daily and DVT prophylaxis with SCDs. Not on chemical anticoagulation prophylaxis due to thrombocytopenia. Lines: Right subclavian CVP placed 11/18- 11/24, peripheral IV's. PT AND OT CASE MANAGEMENT FOR DC PLANNING HYPOKALEMIA REPLACE Discharge Planning With R pleural effusion s/p thoracentesis 12/03/16 with 800 cc fluid removed, pending analysis WILL NEED IV ANTIBIOTICS AT [place], THERE IS NO POWER AT HIS [facility], 2/2 [facility] POSS [facility] NEXT WEEK Beatrice Bocanegra MD Dec 04, 2016 14:03
[2016-12-04] MEDS: CALCIUM CARBONATE 500 MG CHEWABLE TAB CHEW SCH ×2 (14:34→19:52)
[2016-12-04 16:00] VITALS: BP 135/87; PULSE 118; RESP 20; TEMP 98; O2SAT 95
--- NOTE | 2016-12-04 16:01 | HHI.IDPN ---
Subjective Subjective Remarks ID X cover for D r Nemani sp R side thoracocenthesis, fluid is bloody, cyto P; clx NG @ 24 hrs pt is afebrile ambulating co mild XAVIER Antibiotics Dapto IV Lines Line sites with no e.o infection. Past Medical History reviewed. Allergies: Coded Allergies: No Known Allergies (Unverified , 11/15/16) Objective . Vital Signs Date Time Temp Pulse Resp B/P (MAP) Pulse Ox O2 Delivery O2 Flow Rate FiO2 12/04/16 11:35 18 12/04/16 08:00 98.1 116 20 138/95 (109) 94 12/04/16 08:00 Room Air 12/04/16 04:00 98.6 125 20 131/96 (108) 95 12/04/16 00:00 98.4 102 20 129/84 (99) 98 12/03/16 20:00 112 12/03/16 19:45 Room Air 12/03/16 16:00 96.6 106 20 139/89 (106) 96 . Laboratory Tests Test 12/02/16 21:08 White Blood Count 6.6 TH/MM3 Red Blood Count 3.74 MIL/MM3 Hemoglobin 9.8 GM/DL Hematocrit 30.3 % Mean Corpuscular Volume 80.9 FL Mean Corpuscular Hemoglobin 26.3 PG Mean Corpuscular Hemoglobin Concent 32.5 % Red Cell Distribution Width 17.6 % Platelet Count 136 TH/MM3 Mean Platelet Volume 8.0 FL Microbiology Date/Time Source Procedure Growth Status 12/03/16 10:32 Fluid Pleural Fluid Fungal Smear - Final NO FUNGAL ELEMENTS SEEN. Resulted 12/03/16 10:32 Fluid Pleural Fluid Fungal Culture Pending Resulted 12/03/16 10:32 Fluid Pleural Fluid Acid Fast Stain - Final NO ACID FAST BACILLI SEEN Resulted 12/03/16 10:32 Fluid Pleural Fluid Mycobacterial Culture Pending Resulted 12/03/16 10:32 Fluid Pleural Fluid Gram Stain - Final Resulted 12/03/16 10:32 Fluid Pleural Fluid Body Fluid Culture - Preliminary NO GROWTH IN 24 HOURS. Resulted Imaging Last Impressions Thoracentesis Ultrasound 12/03/16 0600 Signed Impressions: Service Date/Time: November 09:59 - CONCLUSION: Uncomplicated ultrasound guided thoracentesis. Zeyad Bryant MD Chest X-Ray 9/14/17 0000 Signed Impressions: Service Date/Time: November 10:30 - CONCLUSION: 1. No pneumothorax status-post right thoracentesis. 2. Stable scattered pulmonary nodules bilaterally. Zeyad Bryant MD Chest Ultrasound 12/02/16 Signed Impressions: Service Date/Time: Friday, December 02, 2016 14:26 - CONCLUSION: Sizable right pleural effusion. Estimated volume is 600 cc. Alexander Youssef MD Chest CT 12/02/16 Signed Impressions: Service Date/Time: Friday, December 02, 2016 13:06 - CONCLUSION: 1. Interval improvement in diffuse numerous bilateral cavitary pulmonary nodules with near interval resolution of intervening patchy diffuse bilateral airspace consolidations. Findings are compatible with improving diffuse/atypical infection. 2. Small to moderate, right greater than left, simple appearing bilateral pleural effusions. Checo Leon MD Lumbar Puncture Fluoroscopy 11/21/16 Signed Impressions: Service Date/Time: Wednesday, November 23, 2016 15:08 - CONCLUSION: Uncomplicated fluoroscopically guided lumbar puncture with pressures as above. Horace Kirkland MD Thoracic Spine MRI 11/20/16 Signed Impressions: Service Date/Time: Sunday, November 20, 2016 21:36 - CONCLUSION: 1. No focal abnormality within the thoracic spine. 2. There is edema/inflammatory change seen in the soft tissues to the left of the C7 and T1 spinous processes better seen on the cervical spine MRI examination. 3. Cavitary lesions in the lungs. Manolo Anne MD Lumbar Spine MRI 11/20/16 Signed Impressions: Service Date/Time: Sunday, November 20, 2016 21:36 - CONCLUSION: 1. No areas of significant stenosis. The disc spaces are preserved. 2. Mild facet hypertrophy at the L3-L4 and L4-L5 old. 3. Nonspecific areas of edema within the soft tissues adjacent to the spinous processes throughout the lumbar spine. This can be seen secondary to some dependent edema. Inflammatory change cannot be excluded. It does appear fairly symmetric when comparing right to left. 4. Ascites. Manolo Anne MD Cervical Spine MRI 11/20/16 Signed Impressions: Service Date/Time: Sunday, November 20, 2016 21:36 - CONCLUSION: 1. 2.4 cm vague area of edema seen to the left of the spinous processes of C7 and T1 concerning for focal inflammatory/infectious change. The spinous processes themselves demonstrate normal signal. 2. Suspected hemangioma at the C7 vertebral body. 3. Fluid in the nasopharynx, oropharynx and hypopharynx. There is an NG tube and ET tube in place. Manolo Anne MD Brain MRI 11/20/16 0000 Signed Impressions: Service Date/Time: Sunday, November 20, 2016 21:36 - CONCLUSION: 1. Abnormal gyriform signal abnormality in the left frontal and parietal regions associated with some minimally increased signal on the diffusion weighted images. Findings are nonspecific. Differential diagnosis includes an area of meningitis or leptomeningeal spread of tumor given history of malignancy. Infarction less likely. No associated mass effect. Recommend further evaluation with MRI brain with contrast to assess for abnormal meningeal enhancement. Bruno Cleaning MD Abdomen/Pelvis CT 11/20/16 0000 Signed Impressions: Service Date/Time: Sunday, November 20, 2016 11:30 - CONCLUSION: Significant aeration appearance of the lungs. Generalized anasarca, negative for abscess. Adults abdominal abscess. Michael Youssef MD FACR Renal Ultrasound 11/15/16 0000 Signed Impressions: Service Date/Time: Tuesday, November 15, 2016 10:26 - CONCLUSION: Normal examination. Katie Nevarez MD Physical Exam GENERAL: awake, alert comfortable comfortable SKIN: No rashes, ecchymoses or lesions. HEAD: Atraumatic. Normocephalic. No temporal or scalp tenderness. EYES: Pupils equal round and reactive. Extraocular motions intact. No scleral icterus. No injection or drainage. CARDIOVASCULAR: Tachycardic, no rub RESPIRATORY: fairly clear to auscultation GASTROINTESTINAL: Abdomen soft, non-tender, nondistended. MUSCULOSKELETAL: Extremities without clubbing, cyanosis, or edema. NEUROLOGICAL: awake alert non focal Psych could not be assessed. IV line sites with no evidence of infection. Assessment & Plan Remarks Septic Shock with MODS (fever, tachy, low BP, bandemia, source: lung, endocarditis) on admission. - sepsis clinically resolved TV endocarditis with severe TR. - resolved bacteremia - persistent mobile TV mobile veg as of 12/03 Abnormal MRI brain, ?septic emboli likely meningitis/cerebritis (partially treated at this point) Lung lesions: septic emboli most likely. Other differentials include cancer related mets. Very less likely to be fungal or TB. sp thoarcaocenthesis of hemorragic effusion, clx so far negative Acute renal failure: prerenal, sepsis. Acute metabolic encephalopathy: sepsis, less likely to be meningitis. Hyponatremia: Infection, metabolic, meningitis Hepatitis C positive. Rectal ca sp neoadjuvant XRT, chemo New fever, low grade: afebrile for 2 days Recommendations: Continue Daptomycin IV (Re: Worsening clinically, resp distress, back pain, neck pain ? further dissemination). Follow pleural fluid cultures. follow clinically. Sandra Daugherty MD Dec 04, 2016 16:01
--- NOTE | 2016-12-04 18:45 | HHI.PR ---
Subjective Remarks 45 YOWM with TV Endocarditis,Lung cavities likly septic emboli No diarrhoea No Fever no Abd pain Had Right TC, 900 cc fluid removed Less sob Walked, feels tired Objective Vital Signs Vital Signs Date Time Temp Pulse Resp B/P (MAP) Pulse Ox O2 Delivery O2 Flow Rate FiO2 12/04/16 15:30 18 12/04/16 08:00 98.1 116 20 138/95 (109) 94 12/04/16 08:00 119 12/04/16 08:00 Room Air 12/04/16 04:00 98.6 125 20 131/96 (108) 95 12/04/16 00:00 98.4 102 20 129/84 (99) 98 12/03/16 20:00 112 12/03/16 19:45 Room Air I/O 12/03/16 12/03/16 12/03/16 12/04/16 12/04/16 12/04/16 07:00 15:00 23:00 07:00 15:00 23:00 Intake Total 1080 ml 720 ml 550 ml Output Total 1750 ml 700 ml 575 ml Balance -670 ml 20 ml -25 ml Intake Oral 1080 ml 720 ml 550 ml Output Urine Total 1750 ml 700 ml 575 ml # Bowel Movements 0 1 1 Result Diagram: 12/02/16210712/02/16318 Objective Remarks GENERAL: MBMN WM, NAD SKIN: Warm and dry. HEAD: Normocephalic. EYES: No scleral icterus. No injection or drainage. NECK: Supple, trachea midline. No JVD or lymphadenopathy. CARDIOVASCULAR: Regular rate and rhythm without murmurs, gallops, or rubs. RESPIRATORY: Breath sounds equal bilaterally. No accessory muscle use. GASTROINTESTINAL: Abdomen soft, non-tender, nondistended. MUSCULOSKELETAL: No cyanosis, or edema. BACK: Nontender without obvious deformity. No CVA tenderness. A/P Assessment and Plan Pneumonia Septic emboli TV Endocarditis IV drug use Pleural effusion PLAN Cont Abx per ID Aerosol nebs Stable from pulm standpoint Check pl fluid results. Stable on Agustin Ashton MD Dec 04, 2016 18:45
[2016-12-04 20:00] VITALS: BP 135/88; PULSE 115; PULSE 117; RESP 18; TEMP 98.2; O2SAT 97
[2016-12-05] VITALS (7 sets, daily range): BP systolic 115–134; BP diastolic 76–93; PULSE 100–116; RESP 16–20; TEMP 98–98.9; O2SAT 94–97
[2016-12-05] MEDS: ZOLPIDEM TARTRATE 10 MG TAB PO PRN ×2 (00:30→23:47)
[2016-12-05] MEDS: ACETAMINOPHEN/HYDROcodone 325 MG/10 MG TAB PO PRN ×7 (00:30→23:47)
[2016-12-05] MEDS: CHLORHEXIDINE GLUCONATE 2 % 1 PACK (2 CLOTHS) TOP SCH (04:00)
[2016-12-05] MEDS: PANTOPRAZOLE SODIUM 40 MG VIAL IV SCH (08:46)
[2016-12-05] MEDS: CALCIUM CARBONATE 500 MG CHEWABLE TAB CHEW SCH ×2 (08:46→20:17)
[2016-12-05] MEDS: POTASSIUM CHLORIDE 10 MEQ CONTROLLED RELEASE TAB PO SCH ×2 (08:46→20:17)
[2016-12-05] MEDS: guaiFENesin E.R. 600 MG TAB PO SCH ×2 (08:46→20:17)
[2016-12-05 10:34] LABS: AUTOMATED NEUTROPHIL # 4.5 TH/MM3 (1.8-7.7); BASOPHIL # 0.1 TH/MM3 (0-0.2); BASOPHIL % 1.2 % (0.0-2.0); EOSINOPHIL # 0.3 TH/MM3 (0-0.4); EOSINOPHIL % 5.1 % (0.0-4.0); HEMATOCRIT 32.3 % (39.0-51.0); HEMO FLAGS DIFF FINAL; LYMPH % 14.4 % (9.0-44.0); LYMPHOCYTE # 0.9 TH/MM3 (1.0-4.8); MEAN CELL VOLUME 80.2 FL (80.0-100.0); MEAN CORPUSCULAR HEMOGLOBIN 26.1 PG (27.0-34.0); MEAN CORPUSCULAR HGB CONC 32.6 % (32.0-36.0); MONO % 8.9 % (0.0-8.0); NEUT % 70.4 % (16.0-70.0); PLATELET COUNT 195 TH/MM3 (150-450); RED BLOOD COUNT 4.03 MIL/MM3 (4.50-5.90); RED CELL DISTRIBUTION WIDTH 16.8 % (11.6-17.2); WHITE BLOOD COUNT 6.4 TH/MM3 (4.0-11.0)
[2016-12-05 11:06] LABS: BICARBONATE 23.4 MEQ/L (21.0-32.0); POTASSIUM 4.3 MEQ/L (3.5-5.1)
[2016-12-05] MEDS: DAPTOMYCIN IV SCH (11:24)
[2016-12-05] MEDS: SODIUM CHLORIDE 0.9% IV SCH (11:24)
--- NOTE | 2016-12-05 13:35 | HHI.PR ---
Subjective Remarks The patient is in bed and appears in not acute distress at this time. Shortness of breath improving. Says he was walking in the room yesterday and now feels his legs are sore. Less pain. No neck pain at this time. No chest pain. No fever or chills. Objective Vitals Vital Signs Date Time Temp Pulse Resp B/P (MAP) Pulse Ox O2 Delivery O2 Flow Rate FiO2 12/05/16 08:00 98.2 113 20 134/93 (107) 95 12/05/16 04:00 98.3 113 16 130/85 (100) 95 12/05/16 00:00 98.9 109 18 115/76 (89) 94 12/04/16 20:00 117 12/04/16 20:00 Room Air 12/04/16 20:00 98.2 115 18 135/88 (104) 97 12/04/16 16:00 98.0 118 20 135/87 (103) 95 12/04/16 15:30 18 I/O 12/04/16 12/04/16 12/04/16 12/05/16 12/05/16 12/05/16 07:00 15:00 23:00 07:00 15:00 23:00 Intake Total 550 ml 720 ml 360 ml Output Total 575 ml 300 ml 600 ml Balance -25 ml 420 ml -240 ml Intake Oral 550 ml 720 ml 360 ml Output Urine Total 575 ml 300 ml 600 ml # Voids 2 # Bowel Movements 1 2 Result Diagram: 12/05/16 0820 12/05/16 0820 Imaging Last Impressions Thoracentesis Ultrasound 12/03/16 0600 Signed Impressions: Service Date/Time: November 09:59 - CONCLUSION: Uncomplicated ultrasound guided thoracentesis. Zeyad Bryant MD Chest X-Ray 12/03/16 0000 Signed Impressions: Service Date/Time: November 10:30 - CONCLUSION: 1. No pneumothorax status-post right thoracentesis. 2. Stable scattered pulmonary nodules bilaterally. Zeyad Bryant MD Chest Ultrasound 12/02/16 0000 Signed Impressions: Service Date/Time: Friday, December 02, 2016 14:26 - CONCLUSION: Sizable right pleural effusion. Estimated volume is 600 cc. Alexander Youssef MD Chest CT 12/02/16 Signed Impressions: Service Date/Time: Friday, December 02, 2016 13:06 - CONCLUSION: 1. Interval improvement in diffuse numerous bilateral cavitary pulmonary nodules with near interval resolution of intervening patchy diffuse bilateral airspace consolidations. Findings are compatible with improving diffuse/atypical infection. 2. Small to moderate, right greater than left, simple appearing bilateral pleural effusions. Checo Leon MD Lumbar Puncture Fluoroscopy 11/21/16 Signed Impressions: Service Date/Time: Wednesday, November 23, 2016 15:08 - CONCLUSION: Uncomplicated fluoroscopically guided lumbar puncture with pressures as above. Horace Kirkland MD Thoracic Spine MRI 11/20/16 Signed Impressions: Service Date/Time: Sunday, November 20, 2016 21:36 - CONCLUSION: 1. No focal abnormality within the thoracic spine. 2. There is edema/inflammatory change seen in the soft tissues to the left of the C7 and T1 spinous processes better seen on the cervical spine MRI examination. 3. Cavitary lesions in the lungs. Manolo Anne MD Lumbar Spine MRI 11/20/16 Signed Impressions: Service Date/Time: Sunday, November 20, 2016 21:36 - CONCLUSION: 1. No areas of significant stenosis. The disc spaces are preserved. 2. Mild facet hypertrophy at the L3-L4 and L4-L5 old. 3. Nonspecific areas of edema within the soft tissues adjacent to the spinous processes throughout the lumbar spine. This can be seen secondary to some dependent edema. Inflammatory change cannot be excluded. It does appear fairly symmetric when comparing right to left. 4. Ascites. Manolo Anne MD Cervical Spine MRI 11/20/16 Signed Impressions: Service Date/Time: Sunday, November 20, 2016 21:36 - CONCLUSION: 1. 2.4 cm vague area of edema seen to the left of the spinous processes of C7 and T1 concerning for focal inflammatory/infectious change. The spinous processes themselves demonstrate normal signal. 2. Suspected hemangioma at the C7 vertebral body. 3. Fluid in the nasopharynx, oropharynx and hypopharynx. There is an NG tube and ET tube in place. Manolo Anne MD Brain MRI 11/20/16 Signed Impressions: Service Date/Time: Sunday, November 20, 2016 21:36 - CONCLUSION: 1. Abnormal gyriform signal abnormality in the left frontal and parietal regions associated with some minimally increased signal on the diffusion weighted images. Findings are nonspecific. Differential diagnosis includes an area of meningitis or leptomeningeal spread of tumor given history of malignancy. Infarction less likely. No associated mass effect. Recommend further evaluation with MRI brain with contrast to assess for abnormal meningeal enhancement. Bruno Cleaning MD Abdomen/Pelvis CT 11/20/16 0000 Signed Impressions: Service Date/Time: Sunday, November 20, 2016 11:30 - CONCLUSION: Significant aeration appearance of the lungs. Generalized anasarca, negative for abscess. Adults abdominal abscess. Michael Youssef MD FACR Renal Ultrasound 11/15/16 0000 Signed Impressions: Service Date/Time: Tuesday, November 15, 2016 10:26 - CONCLUSION: Normal examination. Katie Nevarez MD Objective Remarks GENERAL: Middle age M, awake, alert. SKIN: Warm and dry. Multiple tattoos. CARDIOVASCULAR: Regular rate and rhythm. S1, S2 NO S3 OR S4 , + systolic murmur RESPIRATORY: No accessory muscle use. Decreased breath sounds bibasilar worse on the right. No wheezing. GASTROINTESTINAL: Abdomen soft, non-tender, nondistended. Hepatic and splenic margins not palpable. MUSCULOSKELETAL: Extremities without clubbing, cyanosis, or edema. No obvious deformities. NEUROLOGICAL: Awake and alert. No obvious cranial nerve deficits. Motor grossly within normal limits. 4 out of 5 muscle strength in the arms and legs. Normal speech. PSYCHIATRIC: poor insight and judgment. 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 continues to be critically ill, ongoing shock and renal failure. Recently extubated 11/24. Pending evaluation cerebritis versus meningeal carcinomatosis. Prognosis guarded NO LONGER IN SHOCK Plan Neuro: Metabolic encephalopathy-resolved - GCS 15 -UDS: Opiates, Cocaine 11/23 s/p LP showed clear CSF, normal protein and glc, 10 WBC. Follow up on CSF cx and Cytology. 11/20: MRI brain: Abnormal gyriform signal abnormality in the left frontal and parietal regions associated with some minimally increased signal on the diffusion weighted images.ddx meningitis or leptomeningeal spread of tumor given history of malignancy. Neuro is following 11/20: Cervical CT: 2.4 cm vague area of edema seen to the left of the spinous processes of C7 and T1 concerning for focal inflammatory/infectious change. The spinous processes themselves demonstrate normal signal.. Suspected hemangioma at the C7 vertebral body 11/21 EEG: Encephalopathy, no epileptiform features. RESOLVED Pulm: Acute hypoxic and hypercarbic respiratory failure Septic pulmonary emboli Pulmonary Edema Severe ARDS BETTER-RESOLVED Right pleural effusion by US 12/02 s/p thoracentesis on 12/03/16 with 800 cc fluid removal - intubated 11/18 for worsening hypoxemia. Extubated 11/24 - Continue with vent support keep sat >92%. On PRVC RR 16, TV 550, IT;1.0, PEEP:5, FIO2 45% -Bronchodilators every 4 hours when necessary -CXR 11/25: Improving, small right bilateral pleural effusion -repeat CT chest 11/20: increasing size of nodules and consolidation. - 11/15 CT chest showed cavitary and irregular nodules throughout the lungs bilaterally. OFF OXYGEN NOW CV: Septic Shock Congestive Heart Failure Exacerbation secondary to valvulopathy Severe tricuspid regurgitation Pulmonary Edema -Monitor HR and BP keep MAP>65mmHg - Echo showed EF 50-55%, +Vegetations on TV, severe TR ENDOCARDITIS ON TV AND SEVERE TR : RACHEL Intravascular volume overload Hypernatremia..improving - Monitor renal function, I/O's, avoid nephrotoxins, place on electrolytes replacement protocol. Monitor and replace K as need. -Monitor sodium level, encourage free water intake Renal function improving with Cr: 0.9 today from 1. - Renal US 11/15: Unremarkable. Renal signed off 11/24- Dr. Gillis FEN/GI: Acute protein calorie malnutrition- moderate Anion-gap metabolic acidosis Intravascular volume overload Colon cancer on radiation treatment Hepatitis C THROMBOCYTOPENIA CHRONIC Speech evaluation- Mechanical soft with thin liquids Protonix 40mg IV daily for GI prophylaxis ID: MRSA Tricuspid Valve infective endocarditis s/p Septic Shock - ID on board - Continue abx per ID ( On daptomycin, Rifampin, Teflaro) monitor CK's. -s/p LP 11/23: Clear CSF, 10 WBC, normal protein and glc. Follow up on CSF cx and Cytology - Echo showed vegetations on TV. - 11/15, 11/16, 09/17 BC: MRSA, 11/18 BC: MRSA - 11/15 Urine cx: MRSA, 11/18 sputum: MRSA -BC 11/20,11/21,11/22, 11/23: NGTD Heme: Anemia secondary to chronic illness Thrombocytopenia secondary to hepatic dysfunction THROMBOCYTOPENIA - Monitor CBC - Patient s/p transfusion 3 units PRBC total on 11/22, stool Hemoccult negative -Continue to monitor LFTs Endo: Hyperglycemia of critical illness - SSI with Accu-Cheks for glycemic control.- STOP ACCUCHECKS GI prophylaxis with Protonix 40 milligrams daily and DVT prophylaxis with SCDs. Not on chemical anticoagulation prophylaxis due to thrombocytopenia. Lines: Right subclavian CVP placed 11/18- 11/24, peripheral IV's. PT AND OT CASE MANAGEMENT FOR DC PLANNING HYPOKALEMIA REPLACE Discharge Planning With R pleural effusion s/p thoracentesis 12/03/16 with 800 cc fluid removed, pending analysis WILL NEED IV ANTIBIOTICS AT DC. DC when cleared by ID specialist. Beatrice Bocanegra MD Dec 05, 2016 13:35
--- NOTE | 2016-12-05 15:51 | HHI.PR ---
Subjective Remarks 45 YOWM with TV Endocarditis,Lung cavities likly septic emboli No diarrhoea No Fever no Abd pain Had Right TC, 900 cc fluid removed Less sob Sore legs Objective Vital Signs Vital Signs Date Time Temp Pulse Resp B/P (MAP) Pulse Ox O2 Delivery O2 Flow Rate FiO2 12/05/16 15:40 98.5 116 20 129/87 (101) 96 12/05/16 12:00 98.0 116 20 125/86 (99) 97 12/05/16 08:00 98.2 113 20 134/93 (107) 95 12/05/16 08:00 Room Air 12/05/16 04:00 98.3 113 16 130/85 (100) 95 12/05/16 00:00 98.9 109 18 115/76 (89) 94 12/04/16 20:00 117 12/04/16 20:00 Room Air 12/04/16 20:00 98.2 115 18 135/88 (104) 97 12/04/16 16:00 98.0 118 20 135/87 (103) 95 I/O 12/04/16 12/04/16 12/04/16 12/05/16 12/05/16 12/05/16 07:00 15:00 23:00 07:00 15:00 23:00 Intake Total 550 ml 720 ml 360 ml Output Total 575 ml 300 ml 600 ml Balance -25 ml 420 ml -240 ml Intake Oral 550 ml 720 ml 360 ml Output Urine Total 575 ml 300 ml 600 ml # Voids 2 # Bowel Movements 1 2 Result Diagram: 12/05/1681912/05/16819 Objective Remarks GENERAL: MBMN WM, NAD SKIN: Warm and dry. HEAD: Normocephalic. EYES: No scleral icterus. No injection or drainage. NECK: Supple, trachea midline. No JVD or lymphadenopathy. CARDIOVASCULAR: Regular rate and rhythm without murmurs, gallops, or rubs. RESPIRATORY: Breath sounds equal bilaterally. No accessory muscle use. GASTROINTESTINAL: Abdomen soft, non-tender, nondistended. MUSCULOSKELETAL: No cyanosis, or edema. BACK: Nontender without obvious deformity. No CVA tenderness. A/P Assessment and Plan Pneumonia Septic emboli TV Endocarditis IV drug use Pleural effusion PLAN Cont Abx per ID Aerosol nebs Check pl fluid results. Stable on RA OOB and ambulate. Aneja,Agustin Dev MD Dec 05, 2016 15:51
[2016-12-06] VITALS (7 sets, daily range): BP systolic 109–126; BP diastolic 73–85; PULSE 110–122; RESP 16–20; TEMP 97.3–98.5; O2SAT 94–97
[2016-12-06] MEDS: CHLORHEXIDINE GLUCONATE 2 % 1 PACK (2 CLOTHS) TOP SCH (04:00)
[2016-12-06] MEDS: ACETAMINOPHEN/HYDROcodone 325 MG/10 MG TAB PO PRN ×5 (04:09→21:16)
[2016-12-06] MEDS: PANTOPRAZOLE SODIUM 40 MG VIAL IV SCH (09:06)
[2016-12-06] MEDS: CALCIUM CARBONATE 500 MG CHEWABLE TAB CHEW SCH ×2 (09:06→21:15)
[2016-12-06] MEDS: guaiFENesin E.R. 600 MG TAB PO SCH ×2 (09:06→21:15)
[2016-12-06] MEDS: POTASSIUM CHLORIDE 10 MEQ CONTROLLED RELEASE TAB PO SCH ×2 (09:07→21:15)
--- NOTE | 2016-12-06 09:53 | HHI.PR ---
Subjective Remarks Patient is ambulating with a walker. He is tachycardic, says he feels sob if he is walking more. No nausea or vomiting. No fever or chills. Denies chest pain. Objective Vitals Vital Signs Date Time Temp Pulse Resp B/P (MAP) Pulse Ox O2 Delivery O2 Flow Rate FiO2 12/06/16 09:50 95 21 12/06/16 08:00 98.4 122 18 116/78 (91) 94 12/06/16 04:00 Room Air 12/06/16 04:00 98.2 118 16 126/80 (95) 96 12/06/16 00:00 Room Air 12/06/16 00:00 98.5 116 16 111/79 (90) 97 12/05/16 20:11 110 12/05/16 20:00 98.3 100 18 120/77 (91) 95 12/05/16 20:00 Room Air 12/05/16 15:40 98.5 116 20 129/87 (101) 96 12/05/16 12:00 98.0 116 20 125/86 (99) 97 I/O 12/05/16 12/05/16 12/05/16 12/06/16 12/06/16 12/06/16 07:00 15:00 23:00 07:00 15:00 23:00 Intake Total 360 ml 360 ml Output Total 600 ml 200 ml 450 ml Balance -240 ml 160 ml -450 ml Intake Oral 360 ml 360 ml Output Urine Total 600 ml 200 ml 450 ml # Voids 5 # Bowel Movements 1 Result Diagram: 12/05/16 0820 12/05/16 0820 Imaging Last Impressions Thoracentesis Ultrasound 12/03/16 0600 Signed Impressions: Service Date/Time: November 09:59 - CONCLUSION: Uncomplicated ultrasound guided thoracentesis. Zeyad Bryant MD Chest X-Ray 12/03/16 0000 Signed Impressions: Service Date/Time: November 10:30 - CONCLUSION: 1. No pneumothorax status-post right thoracentesis. 2. Stable scattered pulmonary nodules bilaterally. Zeyad Bryant MD Chest Ultrasound 12/02/16 0000 Signed Impressions: Service Date/Time: Friday, December 02, 2016 14:26 - CONCLUSION: Sizable right pleural effusion. Estimated volume is 600 cc. Alexander Youssef MD Chest CT 12/02/16 Signed Impressions: Service Date/Time: Friday, December 02, 2016 13:06 - CONCLUSION: 1. Interval improvement in diffuse numerous bilateral cavitary pulmonary nodules with near interval resolution of intervening patchy diffuse bilateral airspace consolidations. Findings are compatible with improving diffuse/atypical infection. 2. Small to moderate, right greater than left, simple appearing bilateral pleural effusions. Checo Leon MD Lumbar Puncture Fluoroscopy 11/21/16 Signed Impressions: Service Date/Time: Wednesday, November 23, 2016 15:08 - CONCLUSION: Uncomplicated fluoroscopically guided lumbar puncture with pressures as above. Horace Kirkland MD Thoracic Spine MRI 11/20/16 Signed Impressions: Service Date/Time: Sunday, November 20, 2016 21:36 - CONCLUSION: 1. No focal abnormality within the thoracic spine. 2. There is edema/inflammatory change seen in the soft tissues to the left of the C7 and T1 spinous processes better seen on the cervical spine MRI examination. 3. Cavitary lesions in the lungs. Manolo Anne MD Lumbar Spine MRI 11/20/16 Signed Impressions: Service Date/Time: Sunday, November 20, 2016 21:36 - CONCLUSION: 1. No areas of significant stenosis. The disc spaces are preserved. 2. Mild facet hypertrophy at the L3-L4 and L4-L5 old. 3. Nonspecific areas of edema within the soft tissues adjacent to the spinous processes throughout the lumbar spine. This can be seen secondary to some dependent edema. Inflammatory change cannot be excluded. It does appear fairly symmetric when comparing right to left. 4. Ascites. Manolo Anne MD Cervical Spine MRI 11/20/16 Signed Impressions: Service Date/Time: Sunday, November 20, 2016 21:36 - CONCLUSION: 1. 2.4 cm vague area of edema seen to the left of the spinous processes of C7 and T1 concerning for focal inflammatory/infectious change. The spinous processes themselves demonstrate normal signal. 2. Suspected hemangioma at the C7 vertebral body. 3. Fluid in the nasopharynx, oropharynx and hypopharynx. There is an NG tube and ET tube in place. Manolo Anne MD Brain MRI 9/1/17 0000 Signed Impressions: Service Date/Time: Sunday, November 20, 2016 21:36 - CONCLUSION: 1. Abnormal gyriform signal abnormality in the left frontal and parietal regions associated with some minimally increased signal on the diffusion weighted images. Findings are nonspecific. Differential diagnosis includes an area of meningitis or leptomeningeal spread of tumor given history of malignancy. Infarction less likely. No associated mass effect. Recommend further evaluation with MRI brain with contrast to assess for abnormal meningeal enhancement. Bruno Cleaning MD Abdomen/Pelvis CT 11/20/16 0000 Signed Impressions: Service Date/Time: Sunday, November 20, 2016 11:30 - CONCLUSION: Significant aeration appearance of the lungs. Generalized anasarca, negative for abscess. Adults abdominal abscess. Michael Youssef MD FACR Renal Ultrasound 11/15/16 0000 Signed Impressions: Service Date/Time: Tuesday, November 15, 2016 10:26 - CONCLUSION: Normal examination. Katie Nevarez MD Objective Remarks GENERAL: Middle age M, awake, alert. SKIN: Warm and dry. Multiple tattoos. CARDIOVASCULAR: Regular rate and rhythm. S1, S2 NO S3 OR S4 , + systolic murmur RESPIRATORY: No accessory muscle use. Decreased breath sounds bibasilar worse on the right. No wheezing. GASTROINTESTINAL: Abdomen soft, non-tender, nondistended. Hepatic and splenic margins not palpable. MUSCULOSKELETAL: Extremities without clubbing, cyanosis, or edema. No obvious deformities. NEUROLOGICAL: Awake and alert. No obvious cranial nerve deficits. Motor grossly within normal limits. 4 out of 5 muscle strength in the arms and legs. Normal speech. PSYCHIATRIC: poor insight and judgment. 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 continues to be critically ill, ongoing shock and renal failure. Recently extubated 11/24. Pending evaluation cerebritis versus meningeal carcinomatosis. Prognosis guarded NO LONGER IN SHOCK Plan Neuro: Metabolic encephalopathy-resolved - GCS 15 -UDS: Opiates, Cocaine 11/23 s/p LP showed clear CSF, normal protein and glc, 10 WBC. Follow up on CSF cx and Cytology. 11/20: MRI brain: Abnormal gyriform signal abnormality in the left frontal and parietal regions associated with some minimally increased signal on the diffusion weighted images.ddx meningitis or leptomeningeal spread of tumor given history of malignancy. Neuro is following 11/20: Cervical CT: 2.4 cm vague area of edema seen to the left of the spinous processes of C7 and T1 concerning for focal inflammatory/infectious change. The spinous processes themselves demonstrate normal signal.. Suspected hemangioma at the C7 vertebral body 11/21 EEG: Encephalopathy, no epileptiform features. RESOLVED Pulm: Acute hypoxic and hypercarbic respiratory failure Septic pulmonary emboli Pulmonary Edema Severe ARDS BETTER-RESOLVED Right pleural effusion by US 12/02 s/p thoracentesis on 12/03/16 with 800 cc fluid removal - intubated 11/18 for worsening hypoxemia. Extubated 11/24 - Continue with vent support keep sat >92%. On PRVC RR 16, TV 550, IT;1.0, PEEP:5, FIO2 45% -Bronchodilators every 4 hours when necessary -CXR 11/25: Improving, small right bilateral pleural effusion -repeat CT chest 11/20: increasing size of nodules and consolidation. - 11/15 CT chest showed cavitary and irregular nodules throughout the lungs bilaterally. OFF OXYGEN NOW CV: Septic Shock Congestive Heart Failure Exacerbation secondary to valvulopathy Severe tricuspid regurgitation Pulmonary Edema -Monitor HR and BP keep MAP>65mmHg - Echo showed EF 50-55%, +Vegetations on TV, severe TR ENDOCARDITIS ON TV AND SEVERE TR : RACHEL Intravascular volume overload Hypernatremia..improving - Monitor renal function, I/O's, avoid nephrotoxins, place on electrolytes replacement protocol. Monitor and replace K as need. -Monitor sodium level, encourage free water intake Renal function improving with Cr: 0.9 today from 1.29 - Renal US 11/15: Unremarkable. Renal signed off 11/24- Dr. Gillis FEN/GI: Acute protein calorie malnutrition- moderate Anion-gap metabolic acidosis Intravascular volume overload Colon cancer on radiation treatment Hepatitis C THROMBOCYTOPENIA CHRONIC Speech evaluation- Mechanical soft with thin liquids Protonix 40mg IV daily for GI prophylaxis ID: MRSA Tricuspid Valve infective endocarditis s/p Septic Shock - ID on board - Continue abx per ID ( On daptomycin, Rifampin, Teflaro) monitor CK's. -s/p LP 11/23: Clear CSF, 10 WBC, normal protein and glc. Follow up on CSF cx and Cytology - Echo showed vegetations on TV. - 11/15, 11/16, 09/17 BC: MRSA, 11/18 BC: MRSA - 11/15 Urine cx: MRSA, 11/18 sputum: MRSA -BC 11/20,11/21,11/22, 11/23: NGTD Heme: Anemia secondary to chronic illness Thrombocytopenia secondary to hepatic dysfunction THROMBOCYTOPENIA - Monitor CBC - Patient s/p transfusion 3 units PRBC total on 11/22, stool Hemoccult negative -Continue to monitor LFTs Endo: Hyperglycemia of critical illness - SSI with Accu-Cheks for glycemic control.- STOP ACCUCHECKS GI prophylaxis with Protonix 40 milligrams daily and DVT prophylaxis with SCDs. Not on chemical anticoagulation prophylaxis due to thrombocytopenia. Lines: Right subclavian CVP placed 11/18- 11/24, peripheral IV's. PT AND OT CASE MANAGEMENT FOR DC PLANNING HYPOKALEMIA REPLACE Discharge Planning With R pleural effusion s/p thoracentesis 12/03/16 with 800 cc fluid removed, pending analysis WILL NEED IV ANTIBIOTICS AT DC. DC when cleared by ID specialist. Beatrice Bocanegra MD Dec 06, 2016 09:53
[2016-12-06] MEDS: DAPTOMYCIN IV SCH (12:19)
[2016-12-06] MEDS: SODIUM CHLORIDE 0.9% IV SCH (12:19)
--- NOTE | 2016-12-06 16:08 | HHI.PR ---
Subjective Remarks 45 YOWM with TV Endocarditis,Lung cavities likly septic emboli No diarrhoea No Fever no Abd pain Had Right TC, 900 cc fluid removed has soreness in buttocks at radiation site Objective Vital Signs Vital Signs Date Time Temp Pulse Resp B/P (MAP) Pulse Ox O2 Delivery O2 Flow Rate FiO2 12/06/16 12:00 97.9 114 17 125/85 (98) 95 12/06/16 09:50 95 21 12/06/16 08:00 120 12/06/16 08:00 98.4 122 18 116/78 (91) 94 12/06/16 08:00 Room Air 12/06/16 04:00 Room Air 12/06/16 04:00 98.2 118 16 126/80 (95) 96 12/06/16 00:00 Room Air 12/06/16 00:00 98.5 116 16 111/79 (90) 97 12/05/16 20:11 110 12/05/16 20:00 98.3 100 18 120/77 (91) 95 12/05/16 20:00 Room Air I/O 12/05/16 12/05/16 12/05/16 12/06/16 12/06/16 12/06/16 07:00 15:00 23:00 07:00 15:00 23:00 Intake Total 360 ml 360 ml Output Total 600 ml 200 ml 450 ml Balance -240 ml 160 ml -450 ml Intake Oral 360 ml 360 ml Output Urine Total 600 ml 200 ml 450 ml # Voids 5 # Bowel Movements 1 Result Diagram: 12/05/16 0820 12/05/16 0820 Objective Remarks GENERAL: MBMN WM, NAD SKIN: Warm and dry. HEAD: Normocephalic. EYES: No scleral icterus. No injection or drainage. NECK: Supple, trachea midline. No JVD or lymphadenopathy. CARDIOVASCULAR: Regular rate and rhythm without murmurs, gallops, or rubs. RESPIRATORY: Breath sounds equal bilaterally. No accessory muscle use. GASTROINTESTINAL: Abdomen soft, non-tender, nondistended. MUSCULOSKELETAL: No cyanosis, or edema. BACK: Nontender without obvious deformity. No CVA tenderness. A/P Assessment and Plan Pneumonia Septic emboli TV Endocarditis IV drug use Pleural effusion PLAN Cont Abx per ID Aerosol nebs Stable on RA OOB and ambulate. Agustin Marc MD Dec 06, 2016 16:08
[2016-12-06] MEDS: ZOLPIDEM TARTRATE 10 MG TAB PO PRN (23:56)
[2016-12-07] VITALS (7 sets, daily range): BP systolic 118–140; BP diastolic 70–96; PULSE 117–131; RESP 18–20; TEMP 97.4–98.3; O2SAT 96–99
[2016-12-07] MEDS: CHLORHEXIDINE GLUCONATE 2 % 1 PACK (2 CLOTHS) TOP SCH (03:42)
[2016-12-07] MEDS: ACETAMINOPHEN/HYDROcodone 325 MG/10 MG TAB PO PRN ×4 (03:53→20:08)
--- NOTE | 2016-12-07 10:28 | RADRPT ---
EXAM DATE/TIME: 12/07/2016 09:15 [facility] COMPARISON: No previous studies available for comparison. INDICATIONS : Sepsis. CONTRAST: 14 cc Omniscan (gadodiamide) IV MEDICAL HISTORY : Carcinoma, colon. endocarditis SURGICAL HISTORY : chest drain ENCOUNTER: Subsequent ACUITY: 3 weeks PAIN SCORE: 0/10 LOCATION: lower back TECHNIQUE: Multiplanar multisequence MRI of the lumbar spine was performed with and without contrast. FINDINGS: The most caudal appearing lumbar vertebra is numbered as L5. VERTEBRAE: Homogeneous signal. Normal alignment. CONUS: Normal level and configuration. POST CONTRAST: No abnormal areas of contrast enhancement are seen. T12-L1: The thecal sac has a normal diameter. No evidence of disc bulge or protrusion. The neural foramina are patent bilaterally. L1-L2: The thecal sac has a normal diameter. No evidence of disc bulge or protrusion. The neural foramina are patent bilaterally. L2-L3: The thecal sac has a normal diameter. No evidence of disc bulge or protrusion. The neural foramina are patent bilaterally. L3-L4: The thecal sac has a normal diameter. No evidence of disc bulge or protrusion. The neural foramina are patent bilaterally. L4-L5: The thecal sac has a normal diameter. No evidence of disc bulge or protrusion. The neural foramina are patent bilaterally. L5-S1: The thecal sac has a normal diameter. No evidence of disc bulge or protrusion. The neural foramina are patent bilaterally. CONCLUSION: Negative MRI of the lumbar spine. There is no abnormal contrast enhancement. Michael Youssef MD FACR on December 07, 2016 at 10:18 Board Certified Radiologist. This report was verified electronically.
[2016-12-07] MEDS ORDERED: GADODIAMIDE PF 287 MG/ML 5 ML VIAL (for RAD MRI) IVCONTRAST ONE (10:30)
[2016-12-07] MEDS: POTASSIUM CHLORIDE 10 MEQ CONTROLLED RELEASE TAB PO SCH ×2 (10:33→20:07)
[2016-12-07] MEDS: guaiFENesin E.R. 600 MG TAB PO SCH ×2 (10:33→20:07)
[2016-12-07] MEDS: CALCIUM CARBONATE 500 MG CHEWABLE TAB CHEW SCH ×2 (10:33→20:07)
[2016-12-07] MEDS: PANTOPRAZOLE SODIUM 40 MG VIAL IV SCH (10:33)
--- NOTE | 2016-12-07 10:33 | RADRPT ---
EXAM DATE/TIME: 12/07/2016 09:15 [facility] COMPARISON: No previous studies available for comparison. INDICATIONS : Sepsis. CONTRAST: 103 cc Omniscan (gadodiamide) IV MEDICAL HISTORY : Carcinoma, colon. Endocarditis. SURGICAL HISTORY : chest drain ENCOUNTER: Subsequent ACUITY: 3 weeks PAIN SCORE: 0/10 LOCATION: neck TECHNIQUE: Multiplanar, multisequence MRI examination of the cervical spine was performed. FINDINGS: VERTEBRAE: Normal vertebral body height. Stable apparent meningioma C7 ALIGNMENT: No evidence of subluxation. Minimal edema interspinous ligament at C6-C7. Stable in the interval. CORD: Normal configuration and signal. POST FOSSA: The cerebellar tonsils are normal in position. POST-CONTRAST: No abnormal areas of enhancement are seen. C2-C3: The thecal sac has a normal configuration. There is no evidence of disc herniation or spinal canal stenosis. The neural foramina are patent bilaterally. C3-C4: The thecal sac has a normal configuration. There is no evidence of disc herniation or spinal canal s tenosis. The neural foramina are patent bilaterally. C4-C5: The thecal sac has a normal configuration. There is no evidence of disc herniation or spinal canal s tenosis. The neural foramina are patent bilaterally. C5-C6: The thecal sac has a normal configuration. There is no evidence of disc herniation or spinal canal s tenosis. The neural foramina are patent bilaterally. C6-C7: The thecal sac has a normal configuration. There is no evidence of disc herniation or spinal canal s tenosis. The neural foramina are patent bilaterally. Minimal edema is seen in the interspinous liga ments at C6 and C7 stable interval. C7-T1: The thecal sac has a normal configuration. There is no evidence of disc herniation or spinal canal s tenosis. The neural foramina are patent bilaterally. CONCLUSION: 1. Stable MRI of the cervical spine with minimal edema interspinous ligament at C6 and C7. 2. Stable hemangioma C7. Michael Youssef MD FACR on December 07, 2016 at 10:30 Board Certified Radiologist. This report was verified electronically.
--- NOTE | 2016-12-07 10:38 | HHI.PR ---
Subjective Remarks went for MRI, seen after done with imaging MRI imaging reviewed and findings discussed with the patient. Patient denies new motor deficit. No vision problems. Says she is breathing better. He feels weak. No fever or chills. Has a wound in his buttocks, says is not painful. No n/v/d/c. Objective Vitals Vital Signs Date Time Temp Pulse Resp B/P (MAP) Pulse Ox O2 Delivery O2 Flow Rate FiO2 12/07/16 08:03 98.3 131 18 140/96 (111) 99 12/07/16 03:56 98.3 126 20 122/83 (96) 12/06/16 20:00 Room Air 12/06/16 20:00 97.3 118 20 109/73 (85) 12/06/16 20:00 110 12/06/16 16:00 97.5 115 17 120/78 (92) 96 12/06/16 12:00 97.9 114 17 125/85 (98) 95 I/O 12/06/16 12/06/16 12/06/16 12/07/16 12/07/16 12/07/16 07:00 15:00 23:00 07:00 15:00 23:00 Intake Total 720 ml Output Total 450 ml 400 ml 1100 ml Balance -450 ml 320 ml -1100 ml Intake Oral 720 ml Output Urine Total 450 ml 400 ml 1100 ml # Bowel Movements 0 Result Diagram: 12/05/16 0820 12/05/16 0820 Imaging Last Impressions Lumbar Spine MRI 12/07/16 0000 Signed Impressions: Service Date/Time: Wednesday, December 07, 2016 09:15 - CONCLUSION: Negative MRI of the lumbar spine. There is no abnormal contrast enhancement. Michael Youssef MD FACR Cervical Spine MRI 12/07/16 0000 Signed Impressions: Service Date/Time: Wednesday, December 07, 2016 09:15 - CONCLUSION: 1. Stable MRI of the cervical spine with minimal edema interspinous ligament at C6 and C7. 2. Stable hemangioma C7. Michael Youssef MD FACR Brain MRI 12/07/16 0000 Signed Impressions: Service Date/Time: Wednesday, December 07, 2016 09:15 - CONCLUSION: 1 cm focal area of enhancement medina-white matter junction and left proximal region associated with minimal edema. This on the cortical surface of the brain and may well be subacute infarction. Cortical infarctions are usually associated with venous thrombosis however I see no evidence for such. This could be related to an embolic process there but this is the only evidence for such. Michael Youssef MD FACR Thoracentesis Ultrasound 12/03/16 0600 Signed Impressions: Service Date/Time: November 09:59 - CONCLUSION: Uncomplicated ultrasound guided thoracentesis. Zeyad Bryant MD Chest X-Ray 12/03/16 0000 Signed Impressions: Service Date/Time: November 10:30 - CONCLUSION: 1. No pneumothorax status-post right thoracentesis. 2. Stable scattered pulmonary nodules bilaterally. Zeyad Bryant MD Chest Ultrasound 12/02/16 0000 Signed Impressions: Service Date/Time: Friday, December 02, 2016 14:26 - CONCLUSION: Sizable right pleural effusion. Estimated volume is 600 cc. Alexander Youssef MD Chest CT 12/02/16 0000 Signed Impressions: Service Date/Time: Friday, December 02, 2016 13:06 - CONCLUSION: 1. Interval improvement in diffuse numerous bilateral cavitary pulmonary nodules with near interval resolution of intervening patchy diffuse bilateral airspace consolidations. Findings are compatible with improving diffuse/atypical infection. 2. Small to moderate, right greater than left, simple appearing bilateral pleural effusions. Checo Leon MD Lumbar Puncture Fluoroscopy 11/21/16 0000 Signed Impressions: Service Date/Time: Wednesday, November 23, 2016 15:08 - CONCLUSION: Uncomplicated fluoroscopically guided lumbar puncture with pressures as above. Horace Kirkland MD Thoracic Spine MRI 11/20/16 0000 Signed Impressions: Service Date/Time: Sunday, November 20, 2016 21:36 - CONCLUSION: 1. No focal abnormality within the thoracic spine. 2. There is edema/inflammatory change seen in the soft tissues to the left of the C7 and T1 spinous processes better seen on the cervical spine MRI examination. 3. Cavitary lesions in the lungs. Manolo Anne MD Abdomen/Pelvis CT 11/20/16 0000 Signed Impressions: Service Date/Time: Sunday, November 20, 2016 11:30 - CONCLUSION: Significant aeration appearance of the lungs. Generalized anasarca, negative for abscess. Adults abdominal abscess. Michael Youssef MD FACR Renal Ultrasound 11/15/16 0000 Signed Impressions: Service Date/Time: Tuesday, November 15, 2016 10:26 - CONCLUSION: Normal examination. Katie Nevarez MD Objective Remarks GENERAL: Middle age M, awake, alert. SKIN: Left buttock pressure wound. Warm and dry. Multiple tattoos. CARDIOVASCULAR: Regular rate and rhythm. S1, S2 NO S3 OR S4 , + systolic murmur RESPIRATORY: No accessory muscle use. Decreased breath sounds bibasilar worse on the right. No wheezing. GASTROINTESTINAL: Abdomen soft, non-tender, nondistended. Hepatic and splenic margins not palpable. MUSCULOSKELETAL: Extremities without clubbing, cyanosis, or edema. No obvious deformities. NEUROLOGICAL: Awake and alert. No obvious cranial nerve deficits. Motor grossly within normal limits. 4 out of 5 muscle strength in the arms and legs. Normal speech. PSYCHIATRIC: poor insight and judgment. 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 continues to be critically ill, ongoing shock and renal failure. Recently extubated 11/24. Pending evaluation cerebritis versus meningeal carcinomatosis. Prognosis guarded NO LONGER IN SHOCK Plan Neuro: Metabolic encephalopathy-resolved - GCS 15 -UDS: Opiates, Cocaine 11/23 s/p LP showed clear CSF, normal protein and glc, 10 WBC. Follow up on CSF cx and Cytology. 11/20: MRI brain: Abnormal gyriform signal abnormality in the left frontal and parietal regions associated with some minimally increased signal on the diffusion weighted images.ddx meningitis or leptomeningeal spread of tumor given history of malignancy. Neuro is following 11/20: Cervical CT: 2.4 cm vague area of edema seen to the left of the spinous processes of C7 and T1 concerning for focal inflammatory/infectious change. The spinous processes themselves demonstrate normal signal.. Suspected hemangioma at the C7 vertebral body 11/21 EEG: Encephalopathy, no epileptiform features. RESOLVED Pulm: Acute hypoxic and hypercarbic respiratory failure Septic pulmonary emboli Pulmonary Edema Severe ARDS BETTER-RESOLVED Right pleural effusion by US 12/02 s/p thoracentesis on 12/03/16 with 800 cc fluid removal - intubated 11/18 for worsening hypoxemia. Extubated 11/24 - Continue with vent support keep sat >92%. On PRVC RR 16, TV 550, IT;1.0, PEEP:5, FIO2 45% -Bronchodilators every 4 hours when necessary -CXR 11/25: Improving, small right bilateral pleural effusion -repeat CT chest 11/20: increasing size of nodules and consolidation. - 11/15 CT chest showed cavitary and irregular nodules throughout the lungs bilaterally. OFF OXYGEN NOW CV: Septic Shock Congestive Heart Failure Exacerbation secondary to valvulopathy Severe tricuspid regurgitation Pulmonary Edema -Monitor HR and BP keep MAP>65mmHg - Echo showed EF 50-55%, +Vegetations on TV, severe TR ENDOCARDITIS ON TV AND SEVERE TR : RACHEL Intravascular volume overload Hypernatremia..improving - Monitor renal function, I/O's, avoid nephrotoxins, place on electrolytes replacement protocol. Monitor and replace K as need. -Monitor sodium level, encourage free water intake Renal function improving with Cr: 0.9 today from 1. - Renal US 11/15: Unremarkable. Renal signed off 11/24- Dr. Gillis FEN/GI: Acute protein calorie malnutrition- moderate Anion-gap metabolic acidosis Intravascular volume overload Colon cancer on radiation treatment Hepatitis C THROMBOCYTOPENIA CHRONIC Speech evaluation- Mechanical soft with thin liquids Protonix 40mg IV daily for GI prophylaxis ID: MRSA Tricuspid Valve infective endocarditis s/p Septic Shock Left buttocks pressure ulcer . wound care consulted. Lolie with NS, apply santyl daily. Consult gen surgery for debridement. Discussed with Dory from wound care, appreciate recommendations - ID on board - continue abx per ID ( On daptomycin, Rifampin, Teflaro) monitor CK's. -s/p LP 11/23: Clear CSF, 10 WBC, normal protein and glc. Follow up on CSF cx and Cytology - Echo showed vegetations on TV. - 11/15, 11/16, 09/17 BC: MRSA, 11/18 BC: MRSA - 11/15 Urine cx: MRSA, 11/18 sputum: MRSA -BC 11/20,11/21,11/22, 11/23: NGTD - 12/07/16 s/p multiple imaging MRI spine, neck and brain reviewed. Patient with 1 cm subcortical lesion at the medina/white matter junction might be related to septic emboli. Heme: Anemia secondary to chronic illness Thrombocytopenia secondary to hepatic dysfunction THROMBOCYTOPENIA - Monitor CBC - Patient s/p transfusion 3 units PRBC total on 11/22, stool Hemoccult negative -Continue to monitor LFTs Endo: Hyperglycemia of critical illness - SSI with Accu-Cheks for glycemic control.- STOP ACCUCHECKS GI prophylaxis with Protonix 40 milligrams daily and DVT prophylaxis with SCDs. Not on chemical anticoagulation prophylaxis due to thrombocytopenia. Lines: Right subclavian CVP placed 11/18- 11/24, peripheral IV's. PT AND OT CASE MANAGEMENT FOR DC PLANNING HYPOKALEMIA REPLACE Discharge Planning With R pleural effusion s/p thoracentesis 12/03/16 with 800 cc fluid removed, pending analysis WILL NEED IV ANTIBIOTICS AT DC. DC when cleared by ID specialist. Discussed with Dr Lizama from ID. Patient will need daily PT /OT and might get infusion as OP to infusion center Beatrice Bocanegra MD Dec 07, 2016 10:38
--- NOTE | 2016-12-07 10:39 | RADRPT ---
EXAM DATE/TIME: 12/07/2016 09:15 [facility] COMPARISON: No previous studies available for comparison. INDICATIONS : Sepsis. CONTRAST: 14 cc Omniscan (gadodiamide) IV MEDICAL HISTORY : Carcinoma, colon. Endocarditis. SURGICAL HISTORY : chest drain ENCOUNTER: Subsequent ACUITY: 3 weeks PAIN SCORE: 0/10 LOCATION: head TECHNIQUE: Multiplanar, multisequence MRI of the brain was performed both prior to and following the administrat ion of paramagnetic contrast. FINDINGS: CEREBRUM: The ventricles are normal for age. No evidence of midline shift, mass lesion, hemorrhage or acute in farction. Minimal artifact is seen high in the right orbital fossa region. On the SWI images there is scattered hemosiderin in the right hemisphere without evidence for an acute infarction. Small foc al 1 cm enhancement is seen at the medina-white matter junction on the left the tibia small subacute he morrhagic infarct.. This doesn't show minimal enhancement. POSTERIOR FOSSA: The cerebellum and brainstem are intact. The 4th ventricle is midline. The cerebellopontine angle is unremarkable. The cerebellar tonsils are normal in position. EXTRACRANIAL: The visualized portions of the orbits and paranasal sinuses are unremarkable. CONCLUSION: 1 cm focal area of enhancement medina-white matter junction and left proximal region associated with mi nimal edema. This on the cortical surface of the brain and may well be subacute infarction. Cortica l infarctions are usually associated with venous thrombosis however I see no evidence for such. This could be related to an embolic process there but this is the only evidence for such. Michael Youssef MD FACR on December 07, 2016 at 10:32 Board Certified Radiologist. This report was verified electronically.
[2016-12-07] MEDS: DAPTOMYCIN IV SCH (12:51)
[2016-12-07] MEDS: SODIUM CHLORIDE 0.9% IV SCH (12:51)
[2016-12-07 13:56] LABS: AUTOMATED NEUTROPHIL # 5.6 TH/MM3 (1.8-7.7); BASOPHIL # 0.1 TH/MM3 (0-0.2); BASOPHIL % 0.9 % (0.0-2.0); EOSINOPHIL # 0.2 TH/MM3 (0-0.4); EOSINOPHIL % 2.5 % (0.0-4.0); HEMATOCRIT 29.9 % (39.0-51.0); HEMO FLAGS DIFF FINAL; LYMPH % 10.7 % (9.0-44.0); LYMPHOCYTE # 0.8 TH/MM3 (1.0-4.8); MEAN CELL VOLUME 79.6 FL (80.0-100.0); MEAN CORPUSCULAR HEMOGLOBIN 25.9 PG (27.0-34.0); MEAN CORPUSCULAR HGB CONC 32.5 % (32.0-36.0); MONO % 8.4 % (0.0-8.0); NEUT % 77.5 % (16.0-70.0); PLATELET COUNT 212 TH/MM3 (150-450); RED BLOOD COUNT 3.76 MIL/MM3 (4.50-5.90); RED CELL DISTRIBUTION WIDTH 16.5 % (11.6-17.2); WHITE BLOOD COUNT 7.2 TH/MM3 (4.0-11.0)
[2016-12-07 14:14] LABS: ALT (GPT) 32 U/L (12-78); ANION GAP 8 MEQ/L (5-15); AST (GOT) 16 U/L (15-37); BICARBONATE 21.3 MEQ/L (21.0-32.0); BLOOD UREA NITROGEN 10 MG/DL (7-18); CHLORIDE 110 MEQ/L (98-107); GLOMERULAR FILTRATION RATE 91 ML/MIN (>89); POTASSIUM 4.4 MEQ/L (3.5-5.1); SODIUM (NA) 139 MEQ/L (136-145)
[2016-12-07 14:16] LABS: ALKALINE PHOSPHATASE 90 U/L (45-117); TOTAL BILIRUBIN ADULT 0.6 MG/DL (0.2-1.0)
--- NOTE | 2016-12-07 16:39 | PD.WCN.NOT ---
Wound Consult Description: Consult for Pressure ulcer on buttocks per protocol by MIKE/Dr Bocanegra Communicated with: Patient Patient mother at bedside ANSLEY Rand Dr Recommendation: Consult Plastics for possible debridement. Cleanse left buttock with NORMAL SALINE ONLY Apply Santyl nickel thickness to necrotic tissue within wound bed Cover with gauze dressing and secure with dry cover dressing such as bordered gauze or adhesive tape Use Cavilon skin prep prior to placing any tape to skin Additional Information: Patient was sitting up in chair upon arrival to patient room with patients mother at bedside. Brief removed with minimal pink exudate noted, to reveal a left buttock unstageable wound measuring 5.8cm x 4cm x 0.5cm with 90% yellow/ brown adherent leathery slough in center of wound bed. 10% yellow moist tissue noted in wound bed surrounding adherent yellow leathery slough in the center of wound bed. There is no odor and no active drainage noted. Wound margins are jagged from 6 o'clock to 12 o'clock and smooth rounded edges noted from 12 o' clock to 6 o'clock indicating mixed etiology of pressure and moisture. Patient states that he had a wound there before he came in to the hospital and brought it to the attention of his physician performing his radiation therapy and they had suggested a cream but could not remember what kind. Options for debridement were discussed with patient and patients mother at bedside. Patient voices anxiety about surgical debridement, however it was explained that the patient needed to know about his wound and the options for wound care. Plan is to discuss these with attending physician as well. Dory Barillas [facility] Dec 07, 2016 16:39
--- NOTE | 2016-12-07 18:29 | HHI.IDPN ---
Subjective Subjective Remarks is a patient with rectal cancer who underwent Chemo and radiation prior to admission. He was diagnosed with TV endocarditis, Severe TR and Cerebritis secondary to septic emboli and septic pulm emboli. Overnight events reviewed. d/w pt and Mom sp R side thoracocenthesis, fluid is bloody, cyto P; clx NG @ 24 hrs pt is afebrile ambulating co mild XAVIER Ambulating using walker but still weak. s/b wound care and has un-stageable wounds with eschar, plan for santyl. Antibiotics Dapto IV Lines Line sites with no e.o infection. Past Medical History reviewed. Allergies: Coded Allergies: No Known Allergies (Unverified , 11/15/16) Objective . Vital Signs Date Time Temp Pulse Resp B/P (MAP) Pulse Ox O2 Delivery O2 Flow Rate FiO2 12/07/16 12:03 98.0 120 18 118/72 (87) 96 12/07/16 08:03 98.3 131 18 140/96 (111) 99 12/07/16 03:56 98.3 126 20 122/83 (96) 12/06/16 20:00 Room Air 12/06/16 20:00 97.3 118 20 109/73 (85) 12/06/16 20:00 110 . Laboratory Tests Test 12/07/16 13:16 White Blood Count 7.2 TH/MM3 Red Blood Count 3.76 MIL/MM3 Hemoglobin 9.7 GM/DL Hematocrit 29.9 % Mean Corpuscular Volume 79.6 FL Mean Corpuscular Hemoglobin 25.9 PG Mean Corpuscular Hemoglobin Concent 32.5 % Red Cell Distribution Width 16.5 % Platelet Count 212 TH/MM3 Mean Platelet Volume 7.4 FL Neutrophils (%) (Auto) 77.5 % Lymphocytes (%) (Auto) 10.7 % Monocytes (%) (Auto) 8.4 % Eosinophils (%) (Auto) 2.5 % Basophils (%) (Auto) 0.9 % Neutrophils # (Auto) 5.6 TH/MM3 Lymphocytes # (Auto) 0.8 TH/MM3 Monocytes # (Auto) 0.6 TH/MM3 Eosinophils # (Auto) 0.2 TH/MM3 Basophils # (Auto) 0.1 TH/MM3 CBC Comment DIFF FINAL Differential Comment Laboratory Tests Test 12/07/16 13:16 Blood Urea Nitrogen 10 MG/DL Creatinine 0.91 MG/DL Random Glucose 111 MG/DL Total Protein 7.3 GM/DL Albumin 2.1 GM/DL Calcium Level 7.8 MG/DL Alkaline Phosphatase 90 U/L Aspartate Amino Transf (AST/SGOT) 16 U/L Alanine Aminotransferase (ALT/SGPT) 32 U/L Total Bilirubin 0.6 MG/DL Sodium Level 139 MEQ/L Potassium Level 4.4 MEQ/L Chloride Level 110 MEQ/L Carbon Dioxide Level 21.3 MEQ/L Anion Gap 8 MEQ/L Estimat Glomerular Filtration Rate 91 ML/MIN C-Reactive Protein 2.20 MG/DL Imaging Last Impressions Thoracentesis Ultrasound 12/03/16 0600 Signed Impressions: Service Date/Time: November 09:59 - CONCLUSION: Uncomplicated ultrasound guided thoracentesis. Zeyad Bryant MD Chest X-Ray 12/03/16 0000 Signed Impressions: Service Date/Time: November 10:30 - CONCLUSION: 1. No pneumothorax status-post right thoracentesis. 2. Stable scattered pulmonary nodules bilaterally. Zeyad Bryant MD Chest Ultrasound 12/02/16 0000 Signed Impressions: Service Date/Time: Friday, December 02, 2016 14:26 - CONCLUSION: Sizable right pleural effusion. Estimated volume is 600 cc. Alexander Youssef MD Chest CT 12/02/16 0000 Signed Impressions: Service Date/Time: Friday, December 02, 2016 13:06 - CONCLUSION: 1. Interval improvement in diffuse numerous bilateral cavitary pulmonary nodules with near interval resolution of intervening patchy diffuse bilateral airspace consolidations. Findings are compatible with improving diffuse/atypical infection. 2. Small to moderate, right greater than left, simple appearing bilateral pleural effusions. Checo Leon MD Lumbar Puncture Fluoroscopy 11/21/16 0000 Signed Impressions: Service Date/Time: Wednesday, November 23, 2016 15:08 - CONCLUSION: Uncomplicated fluoroscopically guided lumbar puncture with pressures as above. Horace Kirkland MD Thoracic Spine MRI 11/20/16 0000 Signed Impressions: Service Date/Time: Sunday, November 20, 2016 21:36 - CONCLUSION: 1. No focal abnormality within the thoracic spine. 2. There is edema/inflammatory change seen in the soft tissues to the left of the C7 and T1 spinous processes better seen on the cervical spine MRI examination. 3. Cavitary lesions in the lungs. Manolo Anne MD Lumbar Spine MRI 11/20/16 Signed Impressions: Service Date/Time: Sunday, November 20, 2016 21:36 - CONCLUSION: 1. No areas of significant stenosis. The disc spaces are preserved. 2. Mild facet hypertrophy at the L3-L4 and L4-L5 old. 3. Nonspecific areas of edema within the soft tissues adjacent to the spinous processes throughout the lumbar spine. This can be seen secondary to some dependent edema. Inflammatory change cannot be excluded. It does appear fairly symmetric when comparing right to left. 4. Ascites. Manolo Anne MD Cervical Spine MRI 11/20/16 Signed Impressions: Service Date/Time: Sunday, November 20, 2016 21:36 - CONCLUSION: 1. 2.4 cm vague area of edema seen to the left of the spinous processes of C7 and T1 concerning for focal inflammatory/infectious change. The spinous processes themselves demonstrate normal signal. 2. Suspected hemangioma at the C7 vertebral body. 3. Fluid in the nasopharynx, oropharynx and hypopharynx. There is an NG tube and ET tube in place. Manolo Anne MD Brain MRI 11/20/16 Signed Impressions: Service Date/Time: Sunday, November 20, 2016 21:36 - CONCLUSION: 1. Abnormal gyriform signal abnormality in the left frontal and parietal regions associated with some minimally increased signal on the diffusion weighted images. Findings are nonspecific. Differential diagnosis includes an area of meningitis or leptomeningeal spread of tumor given history of malignancy. Infarction less likely. No associated mass effect. Recommend further evaluation with MRI brain with contrast to assess for abnormal meningeal enhancement. Bruno Cleaning MD Abdomen/Pelvis CT 11/20/16 Signed Impressions: Service Date/Time: Sunday, November 20, 2016 11:30 - CONCLUSION: Significant aeration appearance of the lungs. Generalized anasarca, negative for abscess. Adults abdominal abscess. Michael Youssef MD FACR Renal Ultrasound 11/15/16 Signed Impressions: Service Date/Time: Tuesday, November 15, 2016 10:26 - CONCLUSION: Normal examination. Katie Nevarez MD Physical Exam GENERAL: awake, alert comfortable comfortable SKIN: No rashes, ecchymoses or lesions. HEAD: Atraumatic. Normocephalic. No temporal or scalp tenderness. EYES: Pupils equal round and reactive. Extraocular motions intact. No scleral icterus. No injection or drainage. CARDIOVASCULAR: Tachycardic, no rub RESPIRATORY: fairly clear to auscultation GASTROINTESTINAL: Abdomen soft, non-tender, nondistended. MUSCULOSKELETAL: Extremities without clubbing, cyanosis, or edema. NEUROLOGICAL: awake alert non focal Psych could not be assessed. IV line sites with no evidence of infection. Assessment & Plan Remarks Septic Shock with MODS (fever, tachy, low BP, bandemia, source: lung, endocarditis) on admission. - sepsis clinically resolved TV endocarditis with severe TR. - resolved bacteremia - persistent mobile TV mobile veg as of 12/03 Abnormal MRI brain, ?septic emboli likely meningitis/cerebritis (partially treated at this point) Lung lesions: septic emboli most likely. Other differentials include cancer related mets. Very less likely to be fungal or TB. sp thoarcaocenthesis of hemorragic effusion, clx so far negative Acute renal failure: prerenal, sepsis. Acute metabolic encephalopathy: sepsis, less likely to be meningitis. Hyponatremia: Infection, metabolic, meningitis Hepatitis C positive. Rectal ca sp neoadjuvant XRT, chemo New fever, low grade: afebrile for 2 days Recommendations: Continue Daptomycin IV (Re: Worsening clinically, resp distress, back pain, neck pain ? further dissemination). Continue local wound care. reviewed ECHO, MRI brain and spine. Reviewed CT Chest noted improvement. Personally reviewed by me and explained to patient and family. follow clinically. d/w case management: home health option not possible due to expense of medication. Very weak for daily infusion center visits. I would like an adult to accompany him to infusion center each visit as he has cerebritis and is unsteady. For now plan on aggressive PT/OT and hopefully home with outpt once a day infusion at infusion center when able safely. d/w pt, Mom and . Lucille Lizama MD Dec 07, 2016 18:29
--- NOTE | 2016-12-07 19:33 | HHI.PR ---
Subjective Remarks 45 YOWM with TV Endocarditis,Lung cavities likly septic emboli No diarrhoea No Fever no Abd pain Had Right TC, 900 cc fluid removed has soreness in buttocks at radiation site Objective Vital Signs Vital Signs Date Time Temp Pulse Resp B/P (MAP) Pulse Ox O2 Delivery O2 Flow Rate FiO2 12/07/16 16:03 98.0 118 18 122/70 (87) 97 12/07/16 12:03 98.0 120 18 118/72 (87) 96 12/07/16 08:17 117 12/07/16 08:03 98.3 131 18 140/96 (111) 99 12/07/16 03:56 98.3 126 20 122/83 (96) 12/06/16 20:00 Room Air 12/06/16 20:00 97.3 118 20 109/73 (85) 12/06/16 20:00 110 I/O 12/06/16 12/06/16 12/06/16 12/07/16 12/07/16 12/07/16 07:00 15:00 23:00 07:00 15:00 23:00 Intake Total 720 ml 420 ml Output Total 450 ml 400 ml 1100 ml Balance -450 ml 320 ml -1100 ml 420 ml Intake Oral 720 ml 420 ml Output Urine Total 450 ml 400 ml 1100 ml # Voids 5 # Bowel Movements 0 1 Result Diagram: 12/07/16 1316 12/07/16 1316 Objective Remarks GENERAL: MBMN WM, NAD SKIN: Warm and dry. HEAD: Normocephalic. EYES: No scleral icterus. No injection or drainage. NECK: Supple, trachea midline. No JVD or lymphadenopathy. CARDIOVASCULAR: Regular rate and rhythm without murmurs, gallops, or rubs. RESPIRATORY: Breath sounds equal bilaterally. No accessory muscle use. GASTROINTESTINAL: Abdomen soft, non-tender, nondistended. MUSCULOSKELETAL: No cyanosis, or edema. BACK: Nontender without obvious deformity. No CVA tenderness. A/P Assessment and Plan Pneumonia Septic emboli TV Endocarditis IV drug use Pleural effusion PLAN Cont Abx per ID Aerosol nebs Stable on RA Pl fluid cytology Negative OOB and ambulate. Agustin Marc MD Dec 07, 2016 19:32
[2016-12-07] MEDS: COLLAGENASE OINT 30 GM TUBE TOPICAL SCH (22:21)
[2016-12-07] MEDS: ZOLPIDEM TARTRATE 10 MG TAB PO PRN (22:21)
[2016-12-08] VITALS (9 sets, daily range): BP systolic 113–137; BP diastolic 67–94; PULSE 90–130; RESP 17–20; TEMP 97.9–98.6; O2SAT 94–98
[2016-12-08] MEDS: ACETAMINOPHEN/HYDROcodone 325 MG/10 MG TAB PO PRN ×6 (00:34→22:12)
[2016-12-08] MEDS: CHLORHEXIDINE GLUCONATE 2 % 1 PACK (2 CLOTHS) TOP SCH (03:47)
--- NOTE | 2016-12-08 07:26 | MB ---
cc: AIME MORAES M.D. DATE OF CONSULTATION 12/07/2016 REASON FOR CONSULTATION Left buttock decubitus ulcer. HISTORY This is a 45-year-old white male who is admitted to the medical service since November 15, 2016. The patient came in with bilateral pulmonary septic emboli and tricuspid incompetence arising out of IV drug abuse. He was fairly critically sick for awhile and has recovered with IV antibiotic therapy and supportive medical care over the last few weeks or so. The patient also a history of recently diagnosed rectal carcinoma. The onset was approximately in early 2015 that he was noted to have a rectal mass and eventually had a colonoscopy and biopsy and has provided the pathological diagnosis. He is on radiation therapy for the same. The patient basically has no other major previous medical issues. However, through the acute phase he did have acute renal failure, heart issues, lung issues and also history of hepatitis C with liver changes as well. The patient's drug history goes back a few years. The patient is not diabetic. PAST MEDICAL HISTORY Significant for - 1. Hepatitis C. 2. The ongoing ductal carcinoma. 3. Drug abuse. MEDICATIONS He does not take any medications at home. ALLERGIES No allergies noted. CURRENT MEDICATIONS Listed on the chart, mainly IV antibiotics and supportive medications. SOCIAL HISTORY He is a smoker, alcohol regularly and drug abuse. Known drugs that he has used include cocaine and he also has admitted to taking oral Dilaudid mixing to make it liquid and injecting it himself. That may have been the reason for his septic emboli. PHYSICAL EXAMINATION GENERAL: The examination shows a 45-year-old white male who is alert, cooperative, fully oriented. He is able to get up out of the bed. General examination is grossly within normal range with the patient being somewhat malnourished. SKIN: The local examination of the buttock area shows a full-thickness skin loss, approximately 5 cm vertical and about 3.5 cm transverse. The skin is beginning to break at the edges. The underlying tissues are soft. There is a small amount of drainage noted on the edges but no acute abscess or redness of the surrounding tissue at this time. RECOMMENDATIONS The patient was explained the presence of the decubitus ulcer on his left buttock close to the cleft line. A photograph was taken and shown to him to explain the amount of tissue loss and that the skin and the underlying soft tissues which are also necrotic need to be debrided down to the clean, bleeding tissue and the wound needs to be packed open while the area is allowed to heal. The wound needs to be showing good granulation tissue before the healing will proceed. As far as a surgical closure, this is not immediately necessary and also not advisable particularly in the light that the patient is actually ambulatory and given time a secondary healing is preferable to a muscle flap compromising his muscle function in that area. The patient needs to be cleared from a medical standpoint to have general anesthesia. I will try and schedule him in surgery, earliest this Wednesday possible or at a later date as medically appropriate. The patient was also advised that after the surgery he will need to be referred to the [facility] and further care including any future surgeries need to be arranged through the [facility]. I will not be able to see him in my office since I have down-sized my office and do not see any new patients or take any insurance at this time. The patient understands and is agreeable to have the debridement performed while he is in the hospital and he will be scheduled at the appropriate time. signed, not fully reviewed MD RIC Kennedy/GARY /7:34 PM /7:01 AM [email or web address]
[2016-12-08] MEDS: CALCIUM CARBONATE 500 MG CHEWABLE TAB CHEW SCH ×2 (08:29→20:44)
[2016-12-08] MEDS: guaiFENesin E.R. 600 MG TAB PO SCH ×2 (08:29→20:44)
[2016-12-08] MEDS: PANTOPRAZOLE SODIUM 40 MG VIAL IV SCH (08:29)
[2016-12-08] MEDS: COLLAGENASE OINT 30 GM TUBE TOPICAL SCH (08:30)
[2016-12-08] MEDS: POTASSIUM CHLORIDE 10 MEQ CONTROLLED RELEASE TAB PO SCH ×2 (08:30→20:44)
--- NOTE | 2016-12-08 10:54 | HHI.PR ---
Subjective Remarks In bed, says he gets easily sob and his heart is racing with minimal exertion.No n/v/d/c. Denies chest pain or sob. No Fever or chills.No diarrhea or constipation, Objective Vitals Vital Signs Date Time Temp Pulse Resp B/P (MAP) Pulse Ox O2 Delivery O2 Flow Rate FiO2 12/08/16 08:00 98.2 130 20 126/94 (105) 96 12/08/16 04:41 118 12/08/16 00:31 98.6 118 18 113/80 (91) 95 12/07/16 20:17 122 12/07/16 20:12 Room Air 12/07/16 20:00 97.4 123 18 121/84 (96) 96 12/07/16 16:03 98.0 118 18 122/70 (87) 97 12/07/16 12:03 98.0 120 18 118/72 (87) 96 I/O 12/07/16 12/07/16 12/07/16 12/08/16 12/08/16 12/08/16 07:00 15:00 23:00 07:00 15:00 23:00 Intake Total 420 ml 480 ml Output Total 1100 ml 1100 ml Balance -1100 ml 420 ml -620 ml Intake Oral 420 ml 480 ml Output Urine Total 1100 ml 1100 ml # Voids 5 # Bowel Movements 1 0 Result Diagram: 12/07/16 1316 12/07/16 1316 Objective Remarks GENERAL: Middle age M, awake, alert. SKIN: Left buttock pressure wound. Warm and dry. Multiple tattoos. CARDIOVASCULAR: Regular rate and rhythm. S1, S2 NO S3 OR S4 , + systolic murmur RESPIRATORY: No accessory muscle use. Decreased breath sounds bibasilar worse on the right. No wheezing. GASTROINTESTINAL: Abdomen soft, non-tender, nondistended. Hepatic and splenic margins not palpable. MUSCULOSKELETAL: Extremities without clubbing, cyanosis, or edema. No obvious deformities. NEUROLOGICAL: Awake and alert. No obvious cranial nerve deficits. Motor grossly within normal limits. 4 out of 5 muscle strength in the arms and legs. Normal speech. PSYCHIATRIC: poor insight and judgment. 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 continues to be critically ill, ongoing shock and renal failure. Recently extubated 11/24. Pending evaluation cerebritis versus meningeal carcinomatosis. Prognosis guarded NO LONGER IN SHOCK Plan Neuro: Metabolic encephalopathy-resolved - GCS 15 -UDS: Opiates, Cocaine 11/23 s/p LP showed clear CSF, normal protein and glc, 10 WBC. Follow up on CSF cx and Cytology. 11/20: MRI brain: Abnormal gyriform signal abnormality in the left frontal and parietal regions associated with some minimally increased signal on the diffusion weighted images.ddx meningitis or leptomeningeal spread of tumor given history of malignancy. Neuro is following 11/20: Cervical CT: 2.4 cm vague area of edema seen to the left of the spinous processes of C7 and T1 concerning for focal inflammatory/infectious change. The spinous processes themselves demonstrate normal signal.. Suspected hemangioma at the C7 vertebral body 11/21 EEG: Encephalopathy, no epileptiform features. RESOLVED Pulm: Acute hypoxic and hypercarbic respiratory failure Septic pulmonary emboli Pulmonary Edema Severe ARDS BETTER-RESOLVED Right pleural effusion by US 12/02 s/p thoracentesis on 12/03/16 with 800 cc fluid removal - intubated 11/18 for worsening hypoxemia. Extubated 11/24 - Continue with vent support keep sat >92%. On PRVC RR 16, TV 550, IT;1.0, PEEP:5, FIO2 45% -Bronchodilators every 4 hours when necessary -CXR 11/25: Improving, small right bilateral pleural effusion -repeat CT chest 11/20: increasing size of nodules and consolidation. - 11/15 CT chest showed cavitary and irregular nodules throughout the lungs bilaterally. OFF OXYGEN NOW CV: Septic Shock Congestive Heart Failure Exacerbation secondary to valvulopathy Severe tricuspid regurgitation Pulmonary Edema -Monitor HR and BP keep MAP>65mmHg - Echo showed EF 50-55%, +Vegetations on TV, severe TR ENDOCARDITIS ON TV AND SEVERE TR : RACHEL Intravascular volume overload Hypernatremia..improving - Monitor renal function, I/O's, avoid nephrotoxins, place on electrolytes replacement protocol. Monitor and replace K as need. -Monitor sodium level, encourage free water intake Renal function improving with Cr: 0.9 today from 1. - Renal US 11/15: Unremarkable. Renal signed off 11/24- Dr. Gillis FEN/GI: Acute protein calorie malnutrition- moderate Anion-gap metabolic acidosis Intravascular volume overload Colon cancer on radiation treatment Hepatitis C THROMBOCYTOPENIA CHRONIC Speech evaluation- Mechanical soft with thin liquids Protonix 40mg IV daily for GI prophylaxis ID: MRSA Tricuspid Valve infective endocarditis s/p Septic Shock Left buttocks pressure ulcer . wound care consulted. Cleanse with NS, apply santyl daily. Consult plastic surgery for debridement, plan for debridement inpatient but patient will need to f/u at the [facility] [place] for further treatment. Discussed with Dory from wound care, appreciate recommendations - ID consulted and ff - continue abx per ID ( On daptomycin, Rifampin, Teflaro) monitor CK's. -s/p LP 11/23: Clear CSF, 10 WBC, normal protein and glc. Follow up on CSF cx and Cytology - Echo showed vegetations on TV. - 11/15, 11/16, 09/17 BC: MRSA, 11/18 BC: MRSA - 11/15 Urine cx: MRSA, 11/18 sputum: MRSA -BC 11/20,11/21,11/22, 11/23: NGTD - 12/07/16 s/p multiple imaging MRI spine, neck and brain reviewed. Patient with 1 cm subcortical lesion at the medina/white matter junction might be related to septic emboli. Heme: Anemia secondary to chronic illness Thrombocytopenia secondary to hepatic dysfunction THROMBOCYTOPENIA - Monitor CBC - Patient s/p transfusion 3 units PRBC total on 11/22, stool Hemoccult negative -Continue to monitor LFTs Endo: Hyperglycemia of critical illness - SSI with Accu-Cheks for glycemic control.- STOP ACCUCHECKS GI prophylaxis with Protonix 40 milligrams daily and DVT prophylaxis with SCDs. Not on chemical anticoagulation prophylaxis due to thrombocytopenia. Lines: Right subclavian CVP placed 11/18- 11/24, peripheral IV's. PT AND OT CASE MANAGEMENT FOR DC PLANNING HYPOKALEMIA REPLACE Discharge Planning With R pleural effusion s/p thoracentesis 12/03/16 with 800 cc fluid removed, pending analysis WILL NEED IV ANTIBIOTICS AT DC. DC when cleared by ID specialist. Discussed with Dr Lizama from ID. Patient will need daily PT /OT and might get infusion as OP to infusion center Also needs f/u at the [facility] [place] for poss further debridement of left buttock wound Beatrice Bocanegra MD Dec 08, 2016 10:54
[2016-12-08] MEDS: DAPTOMYCIN IV SCH (11:40)
[2016-12-08] MEDS: SODIUM CHLORIDE 0.9% IV SCH (11:40)
--- NOTE | 2016-12-08 18:10 | HHI.PR ---
Subjective Remarks 45 YOWM with TV Endocarditis,Lung cavities likly septic emboli No diarrhoea No Fever no Abd pain Had Right TC, 900 cc fluid removed has soreness in buttocks at radiation site Did't sleep well, tired now Objective Vital Signs Vital Signs Date Time Temp Pulse Resp B/P (MAP) Pulse Ox O2 Delivery O2 Flow Rate FiO2 12/08/16 17:34 95 21 12/08/16 16:00 97.9 113 20 123/80 (94) 95 12/08/16 14:28 Room Air 21 12/08/16 12:00 98.1 119 20 114/86 (95) 95 12/08/16 08:00 98.2 130 20 126/94 (105) 96 12/08/16 04:41 118 12/08/16 00:31 98.6 118 18 113/80 (91) 95 12/07/16 20:17 122 12/07/16 20:12 Room Air 12/07/16 20:00 97.4 123 18 121/84 (96) 96 I/O 12/07/16 12/07/16 12/07/16 12/08/16 12/08/16 12/08/16 07:00 15:00 23:00 07:00 15:00 23:00 Intake Total 420 ml 480 ml Output Total 1100 ml 1100 ml Balance -1100 ml 420 ml -620 ml Intake Oral 420 ml 480 ml Output Urine Total 1100 ml 1100 ml # Voids 5 # Bowel Movements 1 0 Result Diagram: 12/07/16 1316 12/07/16 1316 Objective Remarks GENERAL: MBMN WM, NAD SKIN: Warm and dry. HEAD: Normocephalic. EYES: No scleral icterus. No injection or drainage. NECK: Supple, trachea midline. No JVD or lymphadenopathy. CARDIOVASCULAR: Regular rate and rhythm without murmurs, gallops, or rubs. RESPIRATORY: Breath sounds equal bilaterally. No accessory muscle use. GASTROINTESTINAL: Abdomen soft, non-tender, nondistended. MUSCULOSKELETAL: No cyanosis, or edema. BACK: Nontender without obvious deformity. No CVA tenderness. A/P Assessment and Plan Pneumonia Septic emboli TV Endocarditis IV drug use Pleural effusion PLAN Cont Abx per ID Aerosol nebs Stable on RA Pl fluid cytology Negative Agustin Marc MD Dec 08, 2016 18:10
[2016-12-08] MEDS: ZOLPIDEM TARTRATE 10 MG TAB PO PRN (20:56)
[2016-12-09] VITALS (8 sets, daily range): BP systolic 114–128; BP diastolic 56–87; PULSE 115–128; RESP 16–19; TEMP 97.4–98.8; O2SAT 95–98
[2016-12-09] MEDS: CHLORHEXIDINE GLUCONATE 2 % 1 PACK (2 CLOTHS) TOP SCH (03:37)
[2016-12-09] MEDS: ACETAMINOPHEN/HYDROcodone 325 MG/10 MG TAB PO PRN ×4 (06:39→20:19)
[2016-12-09] MEDS: COLLAGENASE OINT 30 GM TUBE TOPICAL SCH (07:54)
[2016-12-09] MEDS: PANTOPRAZOLE SODIUM 40 MG VIAL IV SCH (07:54)
[2016-12-09] MEDS: CALCIUM CARBONATE 500 MG CHEWABLE TAB CHEW SCH ×2 (07:54→20:18)
[2016-12-09] MEDS: POTASSIUM CHLORIDE 10 MEQ CONTROLLED RELEASE TAB PO SCH ×2 (07:54→20:18)
[2016-12-09] MEDS: guaiFENesin E.R. 600 MG TAB PO SCH ×2 (07:54→20:18)
[2016-12-09] MEDS ORDERED: GENTAMICIN SULFATE 80 MG/2 ML VIAL ONE (11:56)
[2016-12-09] MEDS ORDERED: MIDAZOLAM HCL 2 MG/2 ML VIAL IV ONE (12:00)
[2016-12-09] MEDS ORDERED: PHENYLEPH/NS 1000 MCG/10 ML SYR IV ONE (12:00)
[2016-12-09] MEDS ORDERED: PROPOFOL 200 MG/20 ML AMP IV ONE (12:00)
[2016-12-09] MEDS ORDERED: EPINEPHrine HCL (1:1000) 1 MG/ML VIAL ONE (12:01)
--- NOTE | 2016-12-09 12:14 | HHI.PR ---
Subjective Remarks Went for debridement, was seen thereafter in his room. Says he felt nauseated after the surgery, however now he feels improved. He says he has severe pain at the surgical site. No fever or chills, no nausea, vomiting, diarrhea or constipation. His breathing well. His tachycardic, however he doesn't feel his heart pounding is his chest at this time. Asking for some more pain medications says Dilaudid helps with severe pain. Satting well on room air at this time. Objective Vitals Vital Signs Date Time Temp Pulse Resp B/P (MAP) Pulse Ox O2 Delivery O2 Flow Rate FiO2 12/09/16 08:58 96 12/09/16 08:00 127 12/09/16 08:00 98.3 122 16 128/84 (99) 95 12/09/16 08:00 Room Air 12/09/16 04:00 98.8 117 18 122/80 (94) 98 12/09/16 03:55 Room Air 12/09/16 00:00 Room Air 12/09/16 00:00 98.4 115 18 114/73 (87) 97 12/08/16 20:00 98.1 115 17 137/67 (90) 94 12/08/16 20:00 Room Air 12/08/16 19:57 120 12/08/16 17:34 95 21 12/08/16 16:00 97.9 113 20 123/80 (94) 95 12/08/16 14:28 Room Air 21 I/O 12/08/16 12/08/16 12/08/16 12/09/16 12/09/16 12/09/16 07:00 15:00 23:00 07:00 15:00 23:00 Intake Total 480 ml 1340 ml Output Total 1100 ml 900 ml 900 ml Balance -620 ml 440 ml -900 ml Intake Oral 480 ml 1340 ml Output Urine Total 1100 ml 900 ml 900 ml # Bowel Movements 0 1 Result Diagram: 12/07/16 1316 12/07/16 1316 Imaging Last Impressions Lumbar Spine MRI 12/07/16 0000 Signed Impressions: Service Date/Time: Wednesday, December 07, 2016 09:15 - CONCLUSION: Negative MRI of the lumbar spine. There is no abnormal contrast enhancement. Michael Youssef MD FACR Cervical Spine MRI 12/07/16 0000 Signed Impressions: Service Date/Time: Wednesday, December 07, 2016 09:15 - CONCLUSION: 1. Stable MRI of the cervical spine with minimal edema interspinous ligament at C6 and C7. 2. Stable hemangioma C7. Michael Youssef MD FACR Brain MRI 12/07/16 0000 Signed Impressions: Service Date/Time: Wednesday, December 07, 2016 09:15 - CONCLUSION: 1 cm focal area of enhancement medina-white matter junction and left proximal region associated with minimal edema. This on the cortical surface of the brain and may well be subacute infarction. Cortical infarctions are usually associated with venous thrombosis however I see no evidence for such. This could be related to an embolic process there but this is the only evidence for such. Michael Youssef MD FACR Thoracentesis Ultrasound 12/03/16 0600 Signed Impressions: Service Date/Time: November 09:59 - CONCLUSION: Uncomplicated ultrasound guided thoracentesis. Zeyad Bryant MD Chest X-Ray 12/03/16 0000 Signed Impressions: Service Date/Time: November 10:30 - CONCLUSION: 1. No pneumothorax status-post right thoracentesis. 2. Stable scattered pulmonary nodules bilaterally. Zeyad Bryant MD Chest Ultrasound 12/02/16 0000 Signed Impressions: Service Date/Time: Friday, December 02, 2016 14:26 - CONCLUSION: Sizable right pleural effusion. Estimated volume is 600 cc. Alexander Youssef MD Chest CT 12/02/16 0000 Signed Impressions: Service Date/Time: Friday, December 02, 2016 13:06 - CONCLUSION: 1. Interval improvement in diffuse numerous bilateral cavitary pulmonary nodules with near interval resolution of intervening patchy diffuse bilateral airspace consolidations. Findings are compatible with improving diffuse/atypical infection. 2. Small to moderate, right greater than left, simple appearing bilateral pleural effusions. Checo Leon MD Lumbar Puncture Fluoroscopy 11/21/16 0000 Signed Impressions: Service Date/Time: Wednesday, November 23, 2016 15:08 - CONCLUSION: Uncomplicated fluoroscopically guided lumbar puncture with pressures as above. Horace Kirkland MD Thoracic Spine MRI 11/20/16 0000 Signed Impressions: Service Date/Time: Sunday, November 20, 2016 21:36 - CONCLUSION: 1. No focal abnormality within the thoracic spine. 2. There is edema/inflammatory change seen in the soft tissues to the left of the C7 and T1 spinous processes better seen on the cervical spine MRI examination. 3. Cavitary lesions in the lungs. Manolo Anne MD Abdomen/Pelvis CT 11/20/16 0000 Signed Impressions: Service Date/Time: Sunday, November 20, 2016 11:30 - CONCLUSION: Significant aeration appearance of the lungs. Generalized anasarca, negative for abscess. Adults abdominal abscess. Michael Youssef MD FACR Renal Ultrasound 11/15/16 0000 Signed Impressions: Service Date/Time: Tuesday, November 15, 2016 10:26 - CONCLUSION: Normal examination. Katie Nevarez MD Objective Remarks GENERAL: Middle age M, awake, alert. SKIN: Left buttock pressure wound. Warm and dry. Multiple tattoos. CARDIOVASCULAR: Regular rate and rhythm. S1, S2 NO S3 OR S4 , + systolic murmur RESPIRATORY: No accessory muscle use. Decreased breath sounds bibasilar worse on the right. No wheezing. GASTROINTESTINAL: Abdomen soft, non-tender, nondistended. Hepatic and splenic margins not palpable. MUSCULOSKELETAL: Extremities without clubbing, cyanosis, or edema. No obvious deformities. NEUROLOGICAL: Awake and alert. No obvious cranial nerve deficits. Motor grossly within normal limits. 4 out of 5 muscle strength in the arms and legs. Normal speech. PSYCHIATRIC: poor insight and judgment. 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 continues to be critically ill, ongoing shock and renal failure. Recently extubated 11/24. Pending evaluation cerebritis versus meningeal carcinomatosis. Prognosis guarded NO LONGER IN SHOCK Plan Neuro: Metabolic encephalopathy-resolved - GCS 15 -UDS: Opiates, Cocaine 11/23 s/p LP showed clear CSF, normal protein and glc, 10 WBC. Follow up on CSF cx and Cytology. 11/20: MRI brain: Abnormal gyriform signal abnormality in the left frontal and parietal regions associated with some minimally increased signal on the diffusion weighted images.ddx meningitis or leptomeningeal spread of tumor given history of malignancy. Neuro is following 11/20: Cervical CT: 2.4 cm vague area of edema seen to the left of the spinous processes of C7 and T1 concerning for focal inflammatory/infectious change. The spinous processes themselves demonstrate normal signal.. Suspected hemangioma at the C7 vertebral body 11/21 EEG: Encephalopathy, no epileptiform features. RESOLVED Pulm: Acute hypoxic and hypercarbic respiratory failure Septic pulmonary emboli Pulmonary Edema Severe ARDS BETTER-RESOLVED Right pleural effusion by US 12/02 s/p thoracentesis on 12/03/16 with 800 cc fluid removal - intubated 11/18 for worsening hypoxemia. Extubated 11/24 - Continue with vent support keep sat >92%. On PRVC RR 16, TV 550, IT;1.0, PEEP:5, FIO2 45% -Bronchodilators every 4 hours when necessary -CXR 11/25: Improving, small right bilateral pleural effusion -repeat CT chest 11/20: increasing size of nodules and consolidation. - 11/15 CT chest showed cavitary and irregular nodules throughout the lungs bilaterally. OFF OXYGEN NOW CV: Septic Shock Congestive Heart Failure Exacerbation secondary to valvulopathy Severe tricuspid regurgitation Pulmonary Edema -Monitor HR and BP keep MAP>65mmHg - Echo showed EF 50-55%, +Vegetations on TV, severe TR ENDOCARDITIS ON TV AND SEVERE TR : RACHEL Intravascular volume overload Hypernatremia..improving - Monitor renal function, I/O's, avoid nephrotoxins, place on electrolytes replacement protocol. Monitor and replace K as need. -Monitor sodium level, encourage free water intake Renal function improving with Cr: 0.9 today from 1.29 - Renal US 11/15: Unremarkable. Renal signed off 11/24- Dr. Gillis FEN/GI: Acute protein calorie malnutrition- moderate Anion-gap metabolic acidosis Intravascular volume overload Colon cancer on radiation treatment Hepatitis C THROMBOCYTOPENIA CHRONIC Speech evaluation- Mechanical soft with thin liquids Protonix 40mg IV daily for GI prophylaxis ID: MRSA Tricuspid Valve infective endocarditis s/p Septic Shock Left buttocks pressure ulcer . wound care consulted. Cleanse with NS, apply santyl daily. Consult plastic surgery for debridement, plan for debridement inpatient but patient will need to f/u at the [facility] for further treatment. Discussed with Dory from wound care, appreciate recommendations Status post debridement of left buttocks pressure wound on 12/09/16. Will add dialudid prn IV as patient with severe pain after debridement - ID consulted and ff - continue abx per ID ( On daptomycin, Rifampin, Teflaro) monitor CK's. -s/p LP 11/23: Clear CSF, 10 WBC, normal protein and glc. Follow up on CSF cx and Cytology - Echo showed vegetations on TV. - 11/15, 11/16, 09/17 BC: MRSA, 11/18 BC: MRSA - 11/15 Urine cx: MRSA, 11/18 sputum: MRSA -BC 11/20,11/21,11/22, 11/23: NGTD - 12/07/16 s/p multiple imaging MRI spine, neck and brain reviewed. Patient with 1 cm subcortical lesion at the medina/white matter junction might be related to septic emboli. Heme: Anemia secondary to chronic illness Thrombocytopenia secondary to hepatic dysfunction THROMBOCYTOPENIA - Monitor CBC - Patient s/p transfusion 3 units PRBC total on 11/22, stool Hemoccult negative -Continue to monitor LFTs Endo: Hyperglycemia of critical illness - SSI with Accu-Cheks for glycemic control.- STOP ACCUCHECKS GI prophylaxis with Protonix 40 milligrams daily and DVT prophylaxis with SCDs. Not on chemical anticoagulation prophylaxis due to thrombocytopenia. Lines: Right subclavian CVP placed 11/18- 11/24, peripheral IV's. PT AND OT CASE MANAGEMENT FOR DC PLANNING HYPOKALEMIA REPLACE Discharge Planning With R pleural effusion s/p thoracentesis 12/03/16 with 800 cc fluid removed, pending analysis WILL NEED IV ANTIBIOTICS AT DC. DC when cleared by ID specialist. Discussed with Dr Lizama from ID. Patient will need daily PT /OT and might get infusion as OP to infusion center Status post debridement of left buttocks pressure wound. Also needs f/u at the [facility] for poss further debridement of left buttock wound Beatrice Bocanegra MD Dec 09, 2016 12:13
[2016-12-09] MEDS ORDERED: DO NOT ADM ANY ANTICOAGULANT DRUGS PRN (12:50)
[2016-12-09] MEDS ORDERED: BUPIVACAINE/EPINEPHRINE 0.75% PF 30 ML VIAL INFIL ONE (12:54)
[2016-12-09] MEDS: DAPTOMYCIN IV SCH (13:25)
[2016-12-09] MEDS: SODIUM CHLORIDE 0.9% IV SCH (13:25)
[2016-12-09] MEDS: SODIUM CHLOR 0.9% 1000 ML INJ 1,000 ML IV SCH (17:27)
[2016-12-09] MEDS: HYDROmorphone HCL PF 1 MG/ML VIAL IV PUSH PRN ×2 (17:42→22:22)
--- NOTE | 2016-12-09 17:51 | MP ---
cc: AIME SANDOVAL M.D. DATE OF SURGERY: 12/09/2016 PREOPERATIVE DIAGNOSIS: Left buttock decubitus ulcer, grade 3. POSTOPERATIVE DIAGNOSIS: Left buttock decubitus ulcer, grade 3. OPERATION: Excision, left buttock decubitus, 6 x 4 cm, grade 3. SURGEON Dr. Sandoval ANESTHESIA General INDICATIONS A 45-year-old white male with recent onset decubitus ulcer over the past three to four weeks. The patient had come in critically sick with a bilateral pulmonary septic emboli from IV drug abuse and tricuspid valve endocarditis, and severe regurgitation. He has been revived and treated under medical care with great success. He has the left decubitus ulcer that needs to be excised. It is full-thickness tissue loss including fat. No gross purulent discharge. The patient agrees to go ahead with the surgery. He also understands that after the surgery for future wound care, he will need to go with [facility] or another physician of his choice. I will not be able to provide outpatient care after he leaves the hospital. He agrees to go ahead with the surgery. PROCEDURE The patient was brought to the operating room, was given supine position. Anesthesia was started with IV sedation. The patient was turned on his right side down. Prep and drape was done. IV antibiotic on, the time-out was called and completed. The area was injected with dilute mixture of saline and Sensorcaine 0.75% with additional epinephrine. It was tumesced to a total volume of approximately 150 cc and the area was excised with coagulating Bovie current with a nasal cautery to provide sharp excision. Left of the wound is approximately 1.5 centimeters into clean fat. Hemostasis is excellent. The area was cleaned and packed with Betadine soaked sterile dressing. Also a culture sample had been taken from the wound itself. The patient remained stable. No complications. Minimal blood loss less than 5 cc. signed, not fully reviewed MD RIC Kennedy/BLAINE /12:44 PM /5:11 PM KOREY
--- NOTE | 2016-12-09 18:56 | HHI.PR ---
Subjective Remarks 45 YOWM with TV Endocarditis,Lung cavities likly septic emboli No diarrhoea No Fever no Abd pain Had Right TC, 900 cc fluid removed had Excision of Buttock Decubitus Objective Vital Signs Vital Signs Date Time Temp Pulse Resp B/P (MAP) Pulse Ox O2 Delivery O2 Flow Rate FiO2 12/09/16 17:31 98 21 12/09/16 16:00 97.4 120 17 127/56 (79) 98 12/09/16 13:00 120 16 117/73 (88) 98 Room Air 12/09/16 12:44 98.2 118 16 96/57 (70) 98 Room Air 12/09/16 12:28 85 75/50 12/09/16 11:00 98.6 128 17 121/87 (98) 96 12/09/16 08:58 96 12/09/16 08:00 127 12/09/16 08:00 98.3 122 16 128/84 (99) 95 12/09/16 08:00 Room Air 12/09/16 04:00 98.8 117 18 122/80 (94) 98 12/09/16 03:55 Room Air 12/09/16 00:00 Room Air 12/09/16 00:00 98.4 115 18 114/73 (87) 97 12/08/16 20:00 98.1 115 17 137/67 (90) 94 12/08/16 20:00 Room Air 12/08/16 19:57 120 I/O 12/08/16 12/08/16 12/08/16 12/09/16 12/09/16 12/09/16 07:00 15:00 23:00 07:00 15:00 23:00 Intake Total 480 ml 1340 ml 300 ml 720 ml Output Total 1100 ml 900 ml 900 ml 10 ml 725 ml Balance -620 ml 440 ml -900 ml 290 ml -5 ml Intake Oral 480 ml 1340 ml 720 ml IV Total 0 ml Other 300 ml Output Urine Total 1100 ml 900 ml 900 ml 725 ml Estimated Blood Loss 10 ml # Bowel Movements 0 1 Result Diagram: 12/07/16 1316 12/07/16 1316 Objective Remarks GENERAL: MBMN WM, NAD SKIN: Warm and dry. HEAD: Normocephalic. EYES: No scleral icterus. No injection or drainage. NECK: Supple, trachea midline. No JVD or lymphadenopathy. CARDIOVASCULAR: Regular rate and rhythm without murmurs, gallops, or rubs. RESPIRATORY: Breath sounds equal bilaterally. No accessory muscle use. GASTROINTESTINAL: Abdomen soft, non-tender, nondistended. MUSCULOSKELETAL: No cyanosis, or edema. BACK: Nontender without obvious deformity. No CVA tenderness. A/P Assessment and Plan Pneumonia Septic emboli TV Endocarditis IV drug use Pleural effusion PLAN Cont Abx per ID Aerosol nebs Stable on RA Pl fluid cytology Negative Agustin Marc MD Dec 09, 2016 18:56
[2016-12-09] MEDS: ZOLPIDEM TARTRATE 10 MG TAB PO PRN (23:19)
[2016-12-10] VITALS (7 sets, daily range): BP systolic 105–148; BP diastolic 72–94; PULSE 117–129; RESP 16–19; TEMP 97.9–101.6; O2SAT 94–96
[2016-12-10] MEDS: CHLORHEXIDINE GLUCONATE 2 % 1 PACK (2 CLOTHS) TOP SCH (04:00)
[2016-12-10] MEDS: ACETAMINOPHEN/HYDROcodone 325 MG/10 MG TAB PO PRN ×4 (04:05→20:27)
[2016-12-10] MEDS: SODIUM CHLOR 0.9% 1000 ML INJ 1,000 ML IV SCH ×2 (04:06→17:47)
[2016-12-10] MEDS: HYDROmorphone HCL PF 1 MG/ML VIAL IV PUSH PRN ×4 (06:24→21:58)
[2016-12-10] MEDS: COLLAGENASE OINT 30 GM TUBE TOPICAL SCH (09:00)
--- NOTE | 2016-12-10 09:21 | HHI.PR ---
Subjective Remarks In the bed, says he has pain in his left buttock after debridement, however pain meds helping now. no fever ro chills. No n/v/d/c. Still with tachycardia. Objective Vitals Vital Signs Date Time Temp Pulse Resp B/P (MAP) Pulse Ox O2 Delivery O2 Flow Rate FiO2 12/10/16 08:00 98.4 121 18 127/86 (100) 95 12/10/16 04:00 97.9 125 19 148/94 (112) 96 12/10/16 00:00 98.9 117 17 105/74 (84) 94 12/09/16 20:00 121 12/09/16 20:00 Room Air 12/09/16 20:00 98.4 120 19 125/87 (100) 96 12/09/16 17:31 98 21 12/09/16 16:00 97.4 120 17 127/56 (79) 98 12/09/16 13:00 120 16 117/73 (88) 98 Room Air 12/09/16 12:44 98.2 118 16 96/57 (70) 98 Room Air 12/09/16 12:28 85 75/50 12/09/16 11:00 98.6 128 17 121/87 (98) 96 I/O 12/09/16 12/09/16 12/09/16 12/10/16 12/10/16 12/10/16 07:00 15:00 23:00 07:00 15:00 23:00 Intake Total 300 ml 720 ml 1480 ml Output Total 900 ml 10 ml 725 ml 750 ml Balance -900 ml 290 ml -5 ml 730 ml Intake Oral 720 ml 480 ml IV Total 0 ml 1000 ml Other 300 ml Output Urine Total 900 ml 725 ml 750 ml Estimated Blood Loss 10 ml # Bowel Movements 0 Result Diagram: 12/07/16 1316 12/07/16 1316 Objective Remarks GENERAL: Middle age M, awake, alert. SKIN: Left buttock pressure wound, dressing on c/d/i. Multiple tattoos. CARDIOVASCULAR: Regular rate and rhythm. S1, S2 NO S3 OR S4 , + systolic murmur RESPIRATORY: No accessory muscle use. Decreased breath sounds bibasilar worse on the right. No wheezing. GASTROINTESTINAL: Abdomen soft, non-tender, nondistended. Hepatic and splenic margins not palpable. MUSCULOSKELETAL: Extremities without clubbing, cyanosis, or edema. No obvious deformities. NEUROLOGICAL: Awake and alert. No obvious cranial nerve deficits. Motor grossly within normal limits. 4 out of 5 muscle strength in the arms and legs. Normal speech. PSYCHIATRIC: poor insight and judgment. 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 continues to be critically ill, ongoing shock and renal failure. Recently extubated 11/24. Pending evaluation cerebritis versus meningeal carcinomatosis. Prognosis guarded NO LONGER IN SHOCK Plan Neuro: Metabolic encephalopathy-resolved - GCS 15 -UDS: Opiates, Cocaine 11/23 s/p LP showed clear CSF, normal protein and glc, 10 WBC. Follow up on CSF cx and Cytology. 11/20: MRI brain: Abnormal gyriform signal abnormality in the left frontal and parietal regions associated with some minimally increased signal on the diffusion weighted images.ddx meningitis or leptomeningeal spread of tumor given history of malignancy. Neuro is following 11/20: Cervical CT: 2.4 cm vague area of edema seen to the left of the spinous processes of C7 and T1 concerning for focal inflammatory/infectious change. The spinous processes themselves demonstrate normal signal.. Suspected hemangioma at the C7 vertebral body 11/21 EEG: Encephalopathy, no epileptiform features. RESOLVED Pulm: Acute hypoxic and hypercarbic respiratory failure Septic pulmonary emboli Pulmonary Edema Severe ARDS BETTER-RESOLVED Right pleural effusion by US 12/02 s/p thoracentesis on 12/03/16 with 800 cc fluid removal - intubated 11/18 for worsening hypoxemia. Extubated 11/24 - Continue with vent support keep sat >92%. On PRVC RR 16, TV 550, IT;1.0, PEEP:5, FIO2 45% -Bronchodilators every 4 hours when necessary -CXR 11/25: Improving, small right bilateral pleural effusion -repeat CT chest 11/20: increasing size of nodules and consolidation. - 11/15 CT chest showed cavitary and irregular nodules throughout the lungs bilaterally. OFF OXYGEN NOW CV: Septic Shock Congestive Heart Failure Exacerbation secondary to valvulopathy Severe tricuspid regurgitation Pulmonary Edema -Monitor HR and BP keep MAP>65mmHg - Echo showed EF 50-55%, +Vegetations on TV, severe TR ENDOCARDITIS ON TV AND SEVERE TR : RACHEL Intravascular volume overload Hypernatremia..improving - Monitor renal function, I/O's, avoid nephrotoxins, place on electrolytes replacement protocol. Monitor and replace K as need. -Monitor sodium level, encourage free water intake Renal function improving with Cr: 0.9 today from . - Renal US 11/15: Unremarkable. Renal signed off 11/24- Dr. Gillis FEN/GI: Acute protein calorie malnutrition- moderate Anion-gap metabolic acidosis Intravascular volume overload Colon cancer on radiation treatment Hepatitis C THROMBOCYTOPENIA CHRONIC Speech evaluation- Mechanical soft with thin liquids Protonix 40mg IV daily for GI prophylaxis ID: MRSA Tricuspid Valve infective endocarditis s/p Septic Shock Left buttocks pressure ulcer . wound care consulted. Cleanse with NS, apply santyl daily. Consult plastic surgery for debridement, plan for debridement inpatient but patient will need to f/u at the [place] [facility] for further treatment. Discussed with Dory from wound care, appreciate recommendations Status post debridement of left buttocks pressure wound on 12/09/16. Will add dialudid prn IV as patient with severe pain after debridement - ID consulted and ff - continue abx per ID ( On daptomycin, Rifampin, Teflaro) monitor CK's. -s/p LP 11/23: Clear CSF, 10 WBC, normal protein and glc. Follow up on CSF cx and Cytology - Echo showed vegetations on TV. - 11/15, 11/16, 09/17 BC: MRSA, 11/18 BC: MRSA - 11/15 Urine cx: MRSA, 11/18 sputum: MRSA -BC 11/20,11/21,11/22, 11/23: NGTD - 12/07/16 s/p multiple imaging MRI spine, neck and brain reviewed. Patient with 1 cm subcortical lesion at the medina/white matter junction might be related to septic emboli. Heme: Anemia secondary to chronic illness Thrombocytopenia secondary to hepatic dysfunction THROMBOCYTOPENIA - Monitor CBC - Patient s/p transfusion 3 units PRBC total on 11/22, stool Hemoccult negative -Continue to monitor LFTs Endo: Hyperglycemia of critical illness - SSI with Accu-Cheks for glycemic control.- STOP ACCUCHECKS GI prophylaxis with Protonix 40 milligrams daily and DVT prophylaxis with SCDs. Not on chemical anticoagulation prophylaxis due to thrombocytopenia. Lines: Right subclavian CVP placed 11/18- 11/24, peripheral IV's. PT AND OT CASE MANAGEMENT FOR DC PLANNING HYPOKALEMIA REPLACE Discharge Planning With R pleural effusion s/p thoracentesis 12/03/16 with 800 cc fluid removed, pending analysis WILL NEED IV ANTIBIOTICS AT DC. DC when cleared by ID specialist. Discussed with Dr Lizama from ID. Patient will need daily PT /OT and might get infusion as OP to infusion center Status post debridement of left buttocks pressure wound. Also needs f/u at the [facility] for poss further debridement of left buttock wound Beatrice Bocanegra MD Dec 10, 2016 09:21
[2016-12-10] MEDS: guaiFENesin E.R. 600 MG TAB PO SCH ×2 (09:55→20:26)
[2016-12-10] MEDS: PANTOPRAZOLE SODIUM 40 MG VIAL IV SCH (09:55)
[2016-12-10] MEDS: CALCIUM CARBONATE 500 MG CHEWABLE TAB CHEW SCH ×2 (09:55→20:26)
[2016-12-10] MEDS: POTASSIUM CHLORIDE 10 MEQ CONTROLLED RELEASE TAB PO SCH ×2 (09:55→20:26)
[2016-12-10] MEDS: SODIUM CHLORIDE 0.9% IV SCH (12:45)
[2016-12-10] MEDS: DAPTOMYCIN IV SCH (12:45)
--- NOTE | 2016-12-10 17:06 | PD.WCN.NOT ---
Wound Consult Description: RE-Consult for Pressure Ulcer on buttocks post op debridement Communicated with: ANSLEY Anne Dr Recommendation: DAILY cleanse left buttock with NORMAL SALINE ONLY Apply Santyl nickel thickness to Normal Saline moistened gauze and place in wound bed. Cover with dry gauze and secure with bordered gauze dressing Use Cavilon skin prep prior to placing any tape to skin Additional Information: Patient seen on for post debridement of left buttock. Wound measures 7.4cm x 4cm x1cm with ~75% adipose tissue, ~20% red non granulating tissue, and ~5% necrotic tissue with no odor, no active drainage, and unremarkable periwound. Wound was cleansed with NS and gauze. Santyl applied as ordered to normal saline moistened gauze and placed in wound bed as recommended and covered with dry gauze and secured with bordered gauze dressing. ANSLEY Anne at bedside during assessment. Dory Barillas [facility] Dec 10, 2016 17:06
--- NOTE | 2016-12-10 17:08 | HHI.PR ---
Subjective Remarks 45 YOWM with TV Endocarditis,Lung cavities likly septic emboli No diarrhoea No Fever no Abd pain has pain in buttocks area Objective Vital Signs Vital Signs Date Time Temp Pulse Resp B/P (MAP) Pulse Ox O2 Delivery O2 Flow Rate FiO2 12/10/16 16:41 20 12/10/16 16:13 94 Room Air 12/10/16 16:00 101.6 123 18 106/72 (83) 95 12/10/16 15:16 20 12/10/16 12:00 98.8 129 18 130/79 (96) 94 12/10/16 08:00 98.4 121 18 127/86 (100) 95 12/10/16 04:00 97.9 125 19 148/94 (112) 96 12/10/16 00:00 98.9 117 17 105/74 (84) 94 12/09/16 20:00 121 12/09/16 20:00 Room Air 12/09/16 20:00 98.4 120 19 125/87 (100) 96 12/09/16 17:31 98 21 I/O 12/09/16 12/09/16 12/09/16 12/10/16 12/10/16 12/10/16 07:00 15:00 23:00 07:00 15:00 23:00 Intake Total 300 ml 720 ml 1480 ml Output Total 900 ml 10 ml 725 ml 750 ml Balance -900 ml 290 ml -5 ml 730 ml Intake Oral 720 ml 480 ml IV Total 0 ml 1000 ml Other 300 ml Output Urine Total 900 ml 725 ml 750 ml Estimated Blood Loss 10 ml # Bowel Movements 0 Result Diagram: 12/07/16 1316 12/07/16 1316 Objective Remarks GENERAL: MBMN WM, NAD SKIN: Warm and dry. HEAD: Normocephalic. EYES: No scleral icterus. No injection or drainage. NECK: Supple, trachea midline. No JVD or lymphadenopathy. CARDIOVASCULAR: Regular rate and rhythm without murmurs, gallops, or rubs. RESPIRATORY: Breath sounds equal bilaterally. No accessory muscle use. GASTROINTESTINAL: Abdomen soft, non-tender, nondistended. MUSCULOSKELETAL: No cyanosis, or edema. BACK: Nontender without obvious deformity. No CVA tenderness. A/P Assessment and Plan Pneumonia Septic emboli TV Endocarditis IV drug use Pleural effusion PLAN Cont Abx per ID Aerosol nebs Stable on RA Pl fluid cytology Negative Agustin Marc MD Dec 10, 2016 17:08
--- NOTE | 2016-12-10 21:27 | PD.PLAS.PN ---
Subjective Remarks Patient seen approx 1415 pm Doing very well, mild to moderate pain at the left buttock no active bleeding. Dressing clean, to be changed later by the nurse Discussed further wound care - he can follow up at the wound care center [place] for out patient care. He is ok to be discharged from my stand point. Thank you for the consult. Vital Signs Date Time Temp Pulse Resp B/P (MAP) Pulse Ox O2 Delivery O2 Flow Rate FiO2 12/10/16 18:56 18 12/10/16 17:30 94 21 12/10/16 16:41 20 12/10/16 16:13 94 Room Air 12/10/16 16:00 101.6 123 18 106/72 (83) 95 12/10/16 12:00 98.8 129 18 130/79 (96) 94 12/10/16 08:00 98.4 121 18 127/86 (100) 95 12/10/16 04:00 97.9 125 19 148/94 (112) 96 12/10/16 00:00 98.9 117 17 105/74 (84) 94 I/O 12/09/16 12/09/16 12/09/16 12/10/16 12/10/16 12/10/16 07:00 15:00 23:00 07:00 15:00 23:00 Intake Total 300 ml 720 ml 1480 ml 1360 ml Output Total 900 ml 10 ml 725 ml 750 ml 1025 ml Balance -900 ml 290 ml -5 ml 730 ml 335 ml Intake Oral 720 ml 480 ml 1260 ml IV Total 0 ml 1000 ml 100 ml Other 300 ml Output Urine Total 900 ml 725 ml 750 ml 1025 ml Estimated Blood Loss 10 ml # Bowel Movements 0 0 Date/Time Source Procedure Growth Status 11/30/16 21:30 Blood Peripheral Aerobic Blood Culture - Final NO GROWTH IN 5 DAYS Complete 11/30/16 21:30 Blood Peripheral Anaerobic Blood Culture - Final NO GROWTH IN 5 DAYS Complete 12/09/16 12:30 Fluid Other Fungal Smear - Final NO FUNGAL ELEMENTS SEEN. Resulted 12/09/16 12:30 Fluid Other Fungal Culture Pending Resulted 11/22/16 18:00 Stool Stool Stool Occult Blood (MAHOGANY) - Final HEMOCCULT NEGATIVE Complete 11/18/16 02:20 Sputum Endotracheal Gram Stain - Final Complete 11/18/16 02:20 Sputum Culture - Final S. Aureus Mrsa Complete 11/18/16 03:00 Urine Catheterized Urine Urine Culture - Final NO GROWTH IN 48 HOURS. Complete Result Diagram: 12/07/16 1316 12/07/16 1316 Jhon Sandoval MD Dec 10, 2016 21:27
[2016-12-11] VITALS: BP 130/99; PULSE 117; RESP 16; TEMP 98.4; O2SAT 96
[2016-12-11] MEDS: ACETAMINOPHEN/HYDROcodone 325 MG/10 MG TAB PO PRN ×4 (02:30→21:17)
[2016-12-11] MEDS: CHLORHEXIDINE GLUCONATE 2 % 1 PACK (2 CLOTHS) TOP SCH (03:18)
[2016-12-11 04:00] VITALS: BP 128/84; PULSE 116; RESP 20; TEMP 98.6; O2SAT 94
[2016-12-11] MEDS: HYDROmorphone HCL PF 1 MG/ML VIAL IV PUSH PRN ×5 (04:26→23:28)
[2016-12-11] MEDS: SODIUM CHLOR 0.9% 1000 ML INJ 1,000 ML IV SCH ×2 (04:51→11:46)
[2016-12-11 08:00] VITALS: BP 139/81; PULSE 121; RESP 16; TEMP 98.6; O2SAT 95; O2SAT 97
[2016-12-11] MEDS: POTASSIUM CHLORIDE 10 MEQ CONTROLLED RELEASE TAB PO SCH ×2 (08:15→21:16)
[2016-12-11] MEDS: PANTOPRAZOLE SODIUM 40 MG VIAL IV SCH (08:15)
[2016-12-11] MEDS: CALCIUM CARBONATE 500 MG CHEWABLE TAB CHEW SCH ×2 (08:15→21:16)
[2016-12-11] MEDS: guaiFENesin E.R. 600 MG TAB PO SCH ×2 (08:15→21:16)
[2016-12-11] MEDS: COLLAGENASE OINT 30 GM TUBE TOPICAL SCH (08:16)
[2016-12-11] MEDS: SODIUM CHLORIDE 0.9% IV SCH (11:09)
[2016-12-11] MEDS: DAPTOMYCIN IV SCH (11:09)
--- NOTE | 2016-12-11 11:12 | HHI.PR ---
Subjective Remarks In the chair, feels sob and is tachycardic as he was ambulating. pain is fairly controlled by meds. No fever ro chills overnight. Feels some improvement. Objective Vitals Vital Signs Date Time Temp Pulse Resp B/P (MAP) Pulse Ox O2 Delivery O2 Flow Rate FiO2 12/11/16 09:13 Room Air 21 12/11/16 08:00 98.6 121 16 139/81 (100) 97 12/11/16 04:00 98.6 116 20 128/84 (99) 94 12/11/16 00:00 98.4 117 16 130/99 (109) 96 12/10/16 20:00 125 12/10/16 20:00 98.2 123 16 130/89 (103) 95 12/10/16 19:00 Room Air 12/10/16 18:56 18 12/10/16 17:30 94 21 12/10/16 16:41 20 12/10/16 16:13 94 Room Air 12/10/16 16:00 101.6 123 18 106/72 (83) 95 12/10/16 12:00 98.8 129 18 130/79 (96) 94 I/O 12/10/16 12/10/16 12/10/16 12/11/16 12/11/16 12/11/16 07:00 15:00 23:00 07:00 15:00 23:00 Intake Total 1480 ml 2416 ml 1880 ml Output Total 750 ml 1025 ml 1450 ml Balance 730 ml 1391 ml 430 ml Intake Oral 480 ml 1260 ml 600 ml IV Total 1000 ml 1156 ml 1280 ml Output Urine Total 750 ml 1025 ml 1450 ml # Bowel Movements 0 0 0 Result Diagram: 12/07/16 1316 12/07/16 1316 Imaging Last Impressions Lumbar Spine MRI 12/07/16 0000 Signed Impressions: Service Date/Time: Wednesday, December 07, 2016 09:15 - CONCLUSION: Negative MRI of the lumbar spine. There is no abnormal contrast enhancement. Michael Youssef MD FACR Cervical Spine MRI 12/07/16 0000 Signed Impressions: Service Date/Time: Wednesday, December 07, 2016 09:15 - CONCLUSION: 1. Stable MRI of the cervical spine with minimal edema interspinous ligament at C6 and C7. 2. Stable hemangioma C7. Michael Youssef MD FACR Brain MRI 12/07/16 0000 Signed Impressions: Service Date/Time: Wednesday, December 07, 2016 09:15 - CONCLUSION: 1 cm focal area of enhancement medina-white matter junction and left proximal region associated with minimal edema. This on the cortical surface of the brain and may well be subacute infarction. Cortical infarctions are usually associated with venous thrombosis however I see no evidence for such. This could be related to an embolic process there but this is the only evidence for such. Michael Youssef MD FACR Thoracentesis Ultrasound 12/03/16 0600 Signed Impressions: Service Date/Time: November 09:59 - CONCLUSION: Uncomplicated ultrasound guided thoracentesis. Zeyad Bryant MD Chest X-Ray 12/03/16 0000 Signed Impressions: Service Date/Time: November 10:30 - CONCLUSION: 1. No pneumothorax status-post right thoracentesis. 2. Stable scattered pulmonary nodules bilaterally. Zeyad Bryant MD Chest Ultrasound 12/02/16 0000 Signed Impressions: Service Date/Time: Friday, December 02, 2016 14:26 - CONCLUSION: Sizable right pleural effusion. Estimated volume is 600 cc. Alexander Youssef MD Chest CT 12/02/16 0000 Signed Impressions: Service Date/Time: Friday, December 02, 2016 13:06 - CONCLUSION: 1. Interval improvement in diffuse numerous bilateral cavitary pulmonary nodules with near interval resolution of intervening patchy diffuse bilateral airspace consolidations. Findings are compatible with improving diffuse/atypical infection. 2. Small to moderate, right greater than left, simple appearing bilateral pleural effusions. Checo Leon MD Lumbar Puncture Fluoroscopy 11/21/16 0000 Signed Impressions: Service Date/Time: Wednesday, November 23, 2016 15:08 - CONCLUSION: Uncomplicated fluoroscopically guided lumbar puncture with pressures as above. Horace Kirkland MD Thoracic Spine MRI 11/20/16 0000 Signed Impressions: Service Date/Time: Sunday, November 20, 2016 21:36 - CONCLUSION: 1. No focal abnormality within the thoracic spine. 2. There is edema/inflammatory change seen in the soft tissues to the left of the C7 and T1 spinous processes better seen on the cervical spine MRI examination. 3. Cavitary lesions in the lungs. Manolo Anne MD Abdomen/Pelvis CT 11/20/16 0000 Signed Impressions: Service Date/Time: Sunday, November 20, 2016 11:30 - CONCLUSION: Significant aeration appearance of the lungs. Generalized anasarca, negative for abscess. Adults abdominal abscess. Michael Youssef MD FACR Renal Ultrasound 11/15/16 0000 Signed Impressions: Service Date/Time: Tuesday, November 15, 2016 10:26 - CONCLUSION: Normal examination. Katie Nevarez MD Objective Remarks GENERAL: Middle age M, awake, alert. SKIN: Left buttock pressure wound, dressing on c/d/i. Multiple tattoos. CARDIOVASCULAR: Regular rate and rhythm. S1, S2 NO S3 OR S4 , + systolic murmur RESPIRATORY: No accessory muscle use. Decreased breath sounds bibasilar worse on the right. No wheezing. GASTROINTESTINAL: Abdomen soft, non-tender, nondistended. Hepatic and splenic margins not palpable. MUSCULOSKELETAL: Extremities without clubbing, cyanosis, or edema. No obvious deformities. NEUROLOGICAL: Awake and alert. No obvious cranial nerve deficits. Motor grossly within normal limits. 4 out of 5 muscle strength in the arms and legs. Normal speech. PSYCHIATRIC: poor insight and judgment. 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 continues to be critically ill, ongoing shock and renal failure. Recently extubated 11/24. Pending evaluation cerebritis versus meningeal carcinomatosis. Prognosis guarded NO LONGER IN SHOCK Plan Neuro: Metabolic encephalopathy-resolved - GCS 15 -UDS: Opiates, Cocaine 11/23 s/p LP showed clear CSF, normal protein and glc, 10 WBC. Follow up on CSF cx and Cytology. 11/20: MRI brain: Abnormal gyriform signal abnormality in the left frontal and parietal regions associated with some minimally increased signal on the diffusion weighted images.ddx meningitis or leptomeningeal spread of tumor given history of malignancy. Neuro is following 11/20: Cervical CT: 2.4 cm vague area of edema seen to the left of the spinous processes of C7 and T1 concerning for focal inflammatory/infectious change. The spinous processes themselves demonstrate normal signal.. Suspected hemangioma at the C7 vertebral body 11/21 EEG: Encephalopathy, no epileptiform features. RESOLVED Pulm: Acute hypoxic and hypercarbic respiratory failure Septic pulmonary emboli Pulmonary Edema Severe ARDS BETTER-RESOLVED Right pleural effusion by US 12/02 s/p thoracentesis on 12/03/16 with 800 cc fluid removal - intubated 11/18 for worsening hypoxemia. Extubated 11/24 - Continue with vent support keep sat >92%. On PRVC RR 16, TV 550, IT;1.0, PEEP:5, FIO2 45% -Bronchodilators every 4 hours when necessary -CXR 11/25: Improving, small right bilateral pleural effusion -repeat CT chest 11/20: increasing size of nodules and consolidation. - 11/15 CT chest showed cavitary and irregular nodules throughout the lungs bilaterally. OFF OXYGEN NOW CV: Septic Shock Congestive Heart Failure Exacerbation secondary to valvulopathy Severe tricuspid regurgitation Pulmonary Edema -Monitor HR and BP keep MAP>65mmHg - Echo showed EF 50-55%, +Vegetations on TV, severe TR ENDOCARDITIS ON TV AND SEVERE TR : RACHEL Intravascular volume overload Hypernatremia..improving - Monitor renal function, I/O's, avoid nephrotoxins, place on electrolytes replacement protocol. Monitor and replace K as need. -Monitor sodium level, encourage free water intake Renal function improving with Cr: 0.9 today from 1.29 - Renal US 11/15: Unremarkable. Renal signed off 11/24- Dr. Gillis FEN/GI: Acute protein calorie malnutrition- moderate Anion-gap metabolic acidosis Intravascular volume overload Colon cancer on radiation treatment Hepatitis C THROMBOCYTOPENIA CHRONIC Speech evaluation- Mechanical soft with thin liquids Protonix 40mg IV daily for GI prophylaxis ID: MRSA Tricuspid Valve infective endocarditis s/p Septic Shock Left buttocks pressure ulcer . wound care consulted. Cleanse with NS, apply santyl daily. Consult plastic surgery for debridement, plan for debridement inpatient but patient will need to f/u at the [place] [facility] for further treatment. Discussed with Dory from wound care, appreciate recommendations Status post debridement of left buttocks pressure wound on 12/09/16. Will add dialudid prn IV as patient with severe pain after debridement - ID consulted and ff - continue abx per ID ( On daptomycin, Rifampin, Teflaro) monitor CK's. -s/p LP 11/23: Clear CSF, 10 WBC, normal protein and glc. Follow up on CSF cx and Cytology - Echo showed vegetations on TV. - 11/15, 11/16, 09/17 BC: MRSA, 11/18 BC: MRSA - 11/15 Urine cx: MRSA, 11/18 sputum: MRSA -BC 11/20,11/21,11/22, 11/23: NGTD - 12/07/16 s/p multiple imaging MRI spine, neck and brain reviewed. Patient with 1 cm subcortical lesion at the medina/white matter junction might be related to septic emboli. Heme: Anemia secondary to chronic illness Thrombocytopenia secondary to hepatic dysfunction THROMBOCYTOPENIA - Monitor CBC - Patient s/p transfusion 3 units PRBC total on 11/22, stool Hemoccult negative -Continue to monitor LFTs Endo: Hyperglycemia of critical illness - SSI with Accu-Cheks for glycemic control.- STOP ACCUCHECKS GI prophylaxis with Protonix 40 milligrams daily and DVT prophylaxis with SCDs. Not on chemical anticoagulation prophylaxis due to thrombocytopenia. Lines: Right subclavian CVP placed 11/18- 11/24, peripheral IV's. PT AND OT CASE MANAGEMENT FOR DC PLANNING HYPOKALEMIA REPLACE Discharge Planning With R pleural effusion s/p thoracentesis 12/03/16 with 800 cc fluid removed, pending analysis WILL NEED IV ANTIBIOTICS AT DC. DC when cleared by ID specialist. Discussed with Dr Lizama from ID. Patient will need daily PT /OT and might get infusion as OP to infusion center. Status post debridement of left buttocks pressure wound. Also needs f/u at the [place] [facility] for poss further debridement of left buttock wound. DC when improves Beatrice Bocanegra MD Dec 11, 2016 11:12
--- NOTE | 2016-12-11 11:44 | HHI.PR ---
Subjective Remarks 45 YOWM with TV Endocarditis,Lung cavities likly septic emboli No diarrhoea No Fever no Abd pain No SOB Objective Vital Signs Vital Signs Date Time Temp Pulse Resp B/P (MAP) Pulse Ox O2 Delivery O2 Flow Rate FiO2 12/11/16 09:13 Room Air 21 12/11/16 08:00 98.6 121 16 139/81 (100) 97 12/11/16 04:00 98.6 116 20 128/84 (99) 94 12/11/16 00:00 98.4 117 16 130/99 (109) 96 12/10/16 20:00 125 12/10/16 20:00 98.2 123 16 130/89 (103) 95 12/10/16 19:00 Room Air 12/10/16 18:56 18 12/10/16 17:30 94 21 12/10/16 16:41 20 12/10/16 16:13 94 Room Air 12/10/16 16:00 101.6 123 18 106/72 (83) 95 12/10/16 12:00 98.8 129 18 130/79 (96) 94 I/O 12/10/16 12/10/16 12/10/16 12/11/16 12/11/16 12/11/16 07:00 15:00 23:00 07:00 15:00 23:00 Intake Total 1480 ml 2416 ml 1880 ml Output Total 750 ml 1025 ml 1450 ml Balance 730 ml 1391 ml 430 ml Intake Oral 480 ml 1260 ml 600 ml IV Total 1000 ml 1156 ml 1280 ml Output Urine Total 750 ml 1025 ml 1450 ml # Bowel Movements 0 0 0 Result Diagram: 12/07/16 1316 12/07/16 1316 Objective Remarks GENERAL: MBMN WM, NAD SKIN: Warm and dry. HEAD: Normocephalic. EYES: No scleral icterus. No injection or drainage. NECK: Supple, trachea midline. No JVD or lymphadenopathy. CARDIOVASCULAR: Regular rate and rhythm without murmurs, gallops, or rubs. RESPIRATORY: Breath sounds equal bilaterally. No accessory muscle use. GASTROINTESTINAL: Abdomen soft, non-tender, nondistended. MUSCULOSKELETAL: No cyanosis, or edema. BACK: Nontender without obvious deformity. No CVA tenderness. A/P Assessment and Plan Pneumonia Septic emboli TV Endocarditis IV drug use Pleural effusion PLAN Cont Abx per ID Aerosol nebs Stable on RA Pl fluid cytology Negative Stable from pulm standpoint Available prn over weekend Agustin Marc MD Dec 11, 2016 11:44
[2016-12-11 12:00] VITALS: BP 127/88; PULSE 116; RESP 16; TEMP 97.9; O2SAT 96
[2016-12-11 16:00] VITALS: BP 131/83; PULSE 94; RESP 18; TEMP 97.3; O2SAT 94
[2016-12-11 20:00] VITALS: BP 128/88; PULSE 113; PULSE 117; RESP 16; TEMP 98.7; O2SAT 96
[2016-12-12] VITALS (8 sets, daily range): BP systolic 103–129; BP diastolic 68–82; PULSE 110–120; RESP 16–20; TEMP 97.6–99.6; O2SAT 93–95
[2016-12-12] MEDS: ACETAMINOPHEN/HYDROcodone 325 MG/10 MG TAB PO PRN ×6 (01:52→23:31)
[2016-12-12] MEDS: HYDROmorphone HCL PF 1 MG/ML VIAL IV PUSH PRN ×5 (03:43→20:49)
[2016-12-12] MEDS: CHLORHEXIDINE GLUCONATE 2 % 1 PACK (2 CLOTHS) TOP SCH (04:00)
[2016-12-12] MEDS: SODIUM CHLOR 0.9% 1000 ML INJ 1,000 ML IV SCH (04:32)
[2016-12-12] MEDS: POTASSIUM CHLORIDE 10 MEQ CONTROLLED RELEASE TAB PO SCH ×2 (07:53→20:47)
[2016-12-12] MEDS: PANTOPRAZOLE SODIUM 40 MG VIAL IV SCH (07:53)
[2016-12-12] MEDS: CALCIUM CARBONATE 500 MG CHEWABLE TAB CHEW SCH ×2 (07:54→20:47)
[2016-12-12] MEDS: COLLAGENASE OINT 30 GM TUBE TOPICAL SCH (07:54)
[2016-12-12] MEDS: guaiFENesin E.R. 600 MG TAB PO SCH ×2 (07:54→20:47)
[2016-12-12 07:57] LABS: AUTOMATED NEUTROPHIL # 4.9 TH/MM3 (1.8-7.7); BASOPHIL % 0.6 % (0.0-2.0); EOSINOPHIL # 0.2 TH/MM3 (0-0.4); EOSINOPHIL % 2.6 % (0.0-4.0); HEMATOCRIT 29.2 % (39.0-51.0); HEMO FLAGS DIFF FINAL; LYMPH % 10.5 % (9.0-44.0); LYMPHOCYTE # 0.7 TH/MM3 (1.0-4.8); MEAN CELL VOLUME 79.5 FL (80.0-100.0); MEAN CORPUSCULAR HEMOGLOBIN 25.7 PG (27.0-34.0); MEAN CORPUSCULAR HGB CONC 32.3 % (32.0-36.0); MONO % 9.7 % (0.0-8.0); NEUT % 76.6 % (16.0-70.0); PLATELET COUNT 181 TH/MM3 (150-450); RED BLOOD COUNT 3.68 MIL/MM3 (4.50-5.90); RED CELL DISTRIBUTION WIDTH 16.3 % (11.6-17.2); WHITE BLOOD COUNT 6.5 TH/MM3 (4.0-11.0)
[2016-12-12 08:18] LABS: BICARBONATE 23.1 MEQ/L (21.0-32.0); POTASSIUM 4.1 MEQ/L (3.5-5.1)
--- NOTE | 2016-12-12 12:06 | HHI.PR ---
Subjective Remarks Follow-up tricuspid valve infective endocarditis 12/12/16-patient seen and examined, currently afebrile. Still feels weak. Denies any chest pain or shortness of breath. Objective Vitals Vital Signs Date Time Temp Pulse Resp B/P (MAP) Pulse Ox O2 Delivery O2 Flow Rate FiO2 12/12/16 10:41 94 21 12/12/16 09:30 Room Air 21 12/12/16 08:00 98.5 110 16 129/77 (94) 94 12/12/16 04:00 98.3 113 16 125/78 (94) 95 12/12/16 00:00 97.6 118 16 103/75 (84) 95 12/11/16 20:00 98.7 113 16 128/88 (101) 96 12/11/16 20:00 117 12/11/16 19:00 Room Air 12/11/16 16:00 97.3 94 18 131/83 (99) 94 I/O 12/11/16 12/11/16 12/11/16 12/12/16 12/12/16 12/12/16 07:00 15:00 23:00 07:00 15:00 23:00 Intake Total 1880 ml 760 ml 480 ml Output Total 1450 ml 825 ml 400 ml Balance 430 ml -65 ml 80 ml Intake Oral 600 ml 760 ml 480 ml IV Total 1280 ml Output Urine Total 1450 ml 825 ml 400 ml # Bowel Movements 0 0 Result Diagram: 12/12/16 0530 12/12/16 0530 Imaging Last Impressions Lumbar Spine MRI 12/07/16 0000 Signed Impressions: Service Date/Time: Wednesday, December 07, 2016 09:15 - CONCLUSION: Negative MRI of the lumbar spine. There is no abnormal contrast enhancement. Michael Youssef MD FACR Cervical Spine MRI 12/07/16 0000 Signed Impressions: Service Date/Time: Wednesday, December 07, 2016 09:15 - CONCLUSION: 1. Stable MRI of the cervical spine with minimal edema interspinous ligament at C6 and C7. 2. Stable hemangioma C7. Michael Youssef MD FACR Brain MRI 12/07/16 0000 Signed Impressions: Service Date/Time: Wednesday, December 07, 2016 09:15 - CONCLUSION: 1 cm focal area of enhancement medina-white matter junction and left proximal region associated with minimal edema. This on the cortical surface of the brain and may well be subacute infarction. Cortical infarctions are usually associated with venous thrombosis however I see no evidence for such. This could be related to an embolic process there but this is the only evidence for such. Michael Youssef MD FACR Thoracentesis Ultrasound 12/03/16 0600 Signed Impressions: Service Date/Time: November 09:59 - CONCLUSION: Uncomplicated ultrasound guided thoracentesis. Zeyad Bryant MD Chest X-Ray 12/03/16 0000 Signed Impressions: Service Date/Time: November 10:30 - CONCLUSION: 1. No pneumothorax status-post right thoracentesis. 2. Stable scattered pulmonary nodules bilaterally. Zeyad Bryant MD Chest Ultrasound 12/02/16 0000 Signed Impressions: Service Date/Time: Friday, December 02, 2016 14:26 - CONCLUSION: Sizable right pleural effusion. Estimated volume is 600 cc. Alexander Youssef MD Chest CT 12/02/16 0000 Signed Impressions: Service Date/Time: Friday, December 02, 2016 13:06 - CONCLUSION: 1. Interval improvement in diffuse numerous bilateral cavitary pulmonary nodules with near interval resolution of intervening patchy diffuse bilateral airspace consolidations. Findings are compatible with improving diffuse/atypical infection. 2. Small to moderate, right greater than left, simple appearing bilateral pleural effusions. Checo Leon MD Lumbar Puncture Fluoroscopy 11/21/16 0000 Signed Impressions: Service Date/Time: Wednesday, November 23, 2016 15:08 - CONCLUSION: Uncomplicated fluoroscopically guided lumbar puncture with pressures as above. Horace Kirkland MD Thoracic Spine MRI 11/20/16 0000 Signed Impressions: Service Date/Time: Sunday, November 20, 2016 21:36 - CONCLUSION: 1. No focal abnormality within the thoracic spine. 2. There is edema/inflammatory change seen in the soft tissues to the left of the C7 and T1 spinous processes better seen on the cervical spine MRI examination. 3. Cavitary lesions in the lungs. Manolo Anne MD Abdomen/Pelvis CT 11/20/16 0000 Signed Impressions: Service Date/Time: Sunday, November 20, 2016 11:30 - CONCLUSION: Significant aeration appearance of the lungs. Generalized anasarca, negative for abscess. Adults abdominal abscess. Michael Youssef MD FACR Renal Ultrasound 11/15/16 0000 Signed Impressions: Service Date/Time: Tuesday, November 15, 2016 10:26 - CONCLUSION: Normal examination. Katie Nevarez MD Objective Remarks GENERAL: NAD SKIN: Warm and dry. HEAD: Normocephalic. EYES: No scleral icterus. No injection or drainage. NECK: Supple, trachea midline. No JVD or lymphadenopathy. CARDIOVASCULAR: Regular rate and rhythm without murmurs, gallops, or rubs. RESPIRATORY: Breath sounds equal bilaterally. No accessory muscle use. GASTROINTESTINAL: Abdomen soft, non-tender, nondistended. MUSCULOSKELETAL: No cyanosis, or edema. BACK: Nontender without obvious deformity. No CVA tenderness. 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 Appreciate input from plastic surgery Continue with current wound care Metabolic encephalopathy- resolved Acute hypoxic and hypercarbic respiratory failure-resolved Septic pulmonary emboli Pulmonary Edema Severe ARDS BETTER-RESOLVED Right pleural effusion s/p thoracentesis on 12/03/16 with 800 cc fluid removal RACHEL Intravascular volume overload Hypernatremia..improving Resolved Nephrology signed off Colon cancer on radiation treatment Hepatitis C THROMBOCYTOPENIA CHRONIC Anemia secondary to chronic illness transfused 3 units PRBC total on 11/22, stool Hemoccult negative Continue to monitor LFTs Physical deconditioning Continue aggressive physical therapy Alejo Barragan MD Dec 12, 2016 12:06
[2016-12-12] MEDS: DAPTOMYCIN IV SCH (12:35)
[2016-12-12] MEDS: SODIUM CHLORIDE 0.9% IV SCH (12:35)
[2016-12-13] VITALS (9 sets, daily range): BP systolic 112–125; BP diastolic 73–83; PULSE 113–125; RESP 20–22; TEMP 97.4–98.4; O2SAT 93–96
[2016-12-13] MEDS: HYDROmorphone HCL PF 1 MG/ML VIAL IV PUSH PRN ×6 (01:15→22:40)
[2016-12-13] MEDS: CHLORHEXIDINE GLUCONATE 2 % 1 PACK (2 CLOTHS) TOP SCH (03:23)
[2016-12-13] MEDS: ACETAMINOPHEN/HYDROcodone 325 MG/10 MG TAB PO PRN ×5 (03:29→20:52)
[2016-12-13] MEDS: guaiFENesin E.R. 600 MG TAB PO SCH ×2 (07:50→20:52)
[2016-12-13] MEDS: CALCIUM CARBONATE 500 MG CHEWABLE TAB CHEW SCH ×2 (07:50→20:51)
[2016-12-13] MEDS: PANTOPRAZOLE SOD 40 MG DELAYED RELEASE TAB PO SCH (07:50)
[2016-12-13] MEDS: POTASSIUM CHLORIDE 10 MEQ CONTROLLED RELEASE TAB PO SCH ×2 (07:51→20:52)
--- NOTE | 2016-12-13 10:52 | HHI.PR ---
Subjective Remarks Follow-up tricuspid valve infective endocarditis 12/12/16-patient seen and examined, currently afebrile. Still feels weak. Denies any chest pain or shortness of breath. 12/13/16-patient seen and examined, stable and no change. Good appetite Objective Vitals Vital Signs Date Time Temp Pulse Resp B/P (MAP) Pulse Ox O2 Delivery O2 Flow Rate FiO2 12/13/16 08:00 98.0 113 20 125/77 (93) 95 12/13/16 07:50 95 21 12/13/16 04:00 98.3 117 20 120/83 (95) 96 12/13/16 00:00 98.4 117 22 118/82 (94) 95 12/12/16 20:54 Room Air 12/12/16 20:00 120 12/12/16 20:00 98.5 118 20 121/82 (95) 94 12/12/16 16:00 99.6 117 16 119/76 (90) 93 12/12/16 12:00 98.6 110 16 108/68 (81) 93 I/O 12/12/16 12/12/16 12/12/16 12/13/16 12/13/16 12/13/16 07:00 15:00 23:00 07:00 15:00 23:00 Intake Total 480 ml 720 ml 280 ml Output Total 400 ml 300 ml 550 ml Balance 80 ml 420 ml -270 ml Intake Oral 480 ml 720 ml 280 ml Output Urine Total 400 ml 300 ml 550 ml # Voids 4 # Bowel Movements 0 Result Diagram: 12/12/1652912/12/16 0530 Objective Remarks GENERAL: NAD SKIN: Warm and dry. HEAD: Normocephalic. EYES: No scleral icterus. No injection or drainage. NECK: Supple, trachea midline. No JVD or lymphadenopathy. CARDIOVASCULAR: Regular rate and rhythm without murmurs, gallops, or rubs. RESPIRATORY: Breath sounds equal bilaterally. No accessory muscle use. GASTROINTESTINAL: Abdomen soft, non-tender, nondistended. MUSCULOSKELETAL: No cyanosis, or edema. BACK: Nontender without obvious deformity. No CVA tenderness. Procedures SP VDRF SP LP A/P Problem List: (1) Endocarditis of tricuspid valve ICD Code: I36.8 - Other nonrheumatic tricuspid valve disorders Assessment and Plan 45-year-old man with MRSA Tricuspid Valve infective endocarditis Continue current antibiotics including Cubicin and monitor labs Management per infectious disease specialist Septic Shock Resolved Left buttocks pressure ulcer Status post debridement of left buttocks pressure wound on 12/09/16. Appreciate input from plastic surgery Continue with current wound care Metabolic encephalopathy- resolved Acute hypoxic and hypercarbic respiratory failure-resolved Septic pulmonary emboli Pulmonary Edema-resolved Severe ARDS BETTER-RESOLVED Right pleural effusion s/p thoracentesis on 12/03/16 with 800 cc fluid removal RACHEL Intravascular volume overload Hypernatremia..improving Resolved Nephrology signed off Colon cancer on radiation treatment Hepatitis C THROMBOCYTOPENIA CHRONIC Anemia secondary to chronic illness transfused 3 units PRBC total on 11/22, stool Hemoccult negative Continue to monitor LFTs Physical deconditioning Continue aggressive physical therapy Alejo Barragan MD Dec 13, 2016 10:52
[2016-12-13] MEDS: DAPTOMYCIN IV SCH (11:56)
[2016-12-13] MEDS: COLLAGENASE OINT 30 GM TUBE TOPICAL SCH (11:56)
[2016-12-13] MEDS: SODIUM CHLORIDE 0.9% IV SCH (11:56)
[2016-12-14] VITALS (8 sets, daily range): BP systolic 111–131; BP diastolic 72–84; PULSE 109–119; RESP 16–20; TEMP 97.6–98.8; O2SAT 93–97
[2016-12-14] MEDS: ACETAMINOPHEN/HYDROcodone 325 MG/10 MG TAB PO PRN ×5 (01:03→21:38)
[2016-12-14] MEDS: CHLORHEXIDINE GLUCONATE 2 % 1 PACK (2 CLOTHS) TOP SCH (03:10)
[2016-12-14] MEDS: HYDROmorphone HCL PF 1 MG/ML VIAL IV PUSH PRN ×5 (03:24→23:54)
[2016-12-14 07:25] LABS: AUTOMATED NEUTROPHIL # 4.5 TH/MM3 (1.8-7.7); BASOPHIL % 0.7 % (0.0-2.0); EOSINOPHIL # 0.1 TH/MM3 (0-0.4); EOSINOPHIL % 2.3 % (0.0-4.0); HEMATOCRIT 29.9 % (39.0-51.0); HEMO FLAGS DIFF FINAL; LYMPHOCYTE # 0.8 TH/MM3 (1.0-4.8); MEAN CELL VOLUME 77.8 FL (80.0-100.0); MEAN CORPUSCULAR HEMOGLOBIN 25.6 PG (27.0-34.0); MEAN CORPUSCULAR HGB CONC 32.9 % (32.0-36.0); MONO % 8.7 % (0.0-8.0); NEUT % 75.3 % (16.0-70.0); PLATELET COUNT 204 TH/MM3 (150-450); RED BLOOD COUNT 3.84 MIL/MM3 (4.50-5.90); RED CELL DISTRIBUTION WIDTH 16.3 % (11.6-17.2)
[2016-12-14 07:41] LABS: POTASSIUM 4.2 MEQ/L (3.5-5.1)
[2016-12-14] MEDS: PANTOPRAZOLE SOD 40 MG DELAYED RELEASE TAB PO SCH (07:54)
[2016-12-14] MEDS: guaiFENesin E.R. 600 MG TAB PO SCH ×2 (07:54→21:38)
[2016-12-14] MEDS: POTASSIUM CHLORIDE 10 MEQ CONTROLLED RELEASE TAB PO SCH ×2 (07:54→21:38)
[2016-12-14] MEDS: CALCIUM CARBONATE 500 MG CHEWABLE TAB CHEW SCH ×2 (07:55→21:39)
[2016-12-14] MEDS: COLLAGENASE OINT 30 GM TUBE TOPICAL SCH (07:55)
--- NOTE | 2016-12-14 11:19 | HHI.PR ---
Subjective Remarks Follow-up tricuspid valve infective endocarditis 12/12/16-patient seen and examined, currently afebrile. Still feels weak. Denies any chest pain or shortness of breath. 12/13/16-patient seen and examined, stable and no change. Good appetite 12/14/16-patient seen and examined, reports episode of tachycardia with movement otherwise stable. No other issues. States he is getting stronger Objective Vitals Vital Signs Date Time Temp Pulse Resp B/P (MAP) Pulse Ox O2 Delivery O2 Flow Rate FiO2 12/14/16 08:00 98.8 116 20 120/72 (88) 97 12/14/16 03:22 98.3 111 16 111/75 (87) 95 12/14/16 00:00 97.6 119 20 118/72 (87) 96 12/13/16 21:58 95 21 12/13/16 21:08 Room Air 12/13/16 20:00 97.7 125 20 122/77 (92) 95 12/13/16 19:59 121 12/13/16 16:00 97.4 118 20 125/75 (92) 93 12/13/16 12:00 97.9 116 20 112/73 (86) 94 I/O 12/13/16 12/13/16 12/13/16 12/14/16 12/14/16 12/14/16 07:00 15:00 23:00 07:00 15:00 23:00 Intake Total 280 ml 840 ml 480 ml Output Total 550 ml 600 ml 1200 ml Balance -270 ml 240 ml -720 ml Intake Oral 280 ml 840 ml 480 ml Output Urine Total 550 ml 600 ml 1200 ml # Voids 1 3 # Bowel Movements 0 1 1 Result Diagram: 12/14/16 0600 12/14/16 0600 Objective Remarks GENERAL: NAD SKIN: Warm and dry. HEAD: Normocephalic. EYES: No scleral icterus. No injection or drainage. NECK: Supple, trachea midline. No JVD or lymphadenopathy. CARDIOVASCULAR: Regular rate and rhythm without murmurs, gallops, or rubs. RESPIRATORY: Breath sounds equal bilaterally. No accessory muscle use. GASTROINTESTINAL: Abdomen soft, non-tender, nondistended. MUSCULOSKELETAL: No cyanosis, or edema. BACK: Nontender without obvious deformity. No CVA tenderness. Procedures SP VDRF SP LP A/P Problem List: (1) Endocarditis of tricuspid valve ICD Code: I36.8 - Other nonrheumatic tricuspid valve disorders Assessment and Plan 45-year-old man with MRSA Tricuspid Valve infective endocarditis Continue current antibiotics including Cubicin and monitor labs Management per infectious disease specialist Septic Shock Resolved Left buttocks pressure ulcer Status post debridement of left buttocks pressure wound on 12/09/16. Appreciate input from plastic surgery Continue with current wound care Metabolic encephalopathy- resolved Acute hypoxic and hypercarbic respiratory failure-resolved Septic pulmonary emboli Pulmonary Edema-resolved Severe ARDS BETTER-RESOLVED Right pleural effusion s/p thoracentesis on 12/03/16 with 800 cc fluid removal RACHEL Intravascular volume overload Hypernatremia..improving Resolved Nephrology signed off Colon cancer on radiation treatment Hepatitis C THROMBOCYTOPENIA CHRONIC Anemia secondary to chronic illness transfused 3 units PRBC total on 11/22, stool Hemoccult negative Continue to monitor LFTs Physical deconditioning Continue aggressive physical therapy Alejo Barragan MD Dec 14, 2016 11:19
[2016-12-14] MEDS: SODIUM CHLORIDE 0.9% IV SCH (12:38)
[2016-12-14] MEDS: DAPTOMYCIN IV SCH (12:38)
--- NOTE | 2016-12-14 19:45 | HHI.PR ---
Subjective Remarks 45 YOWM with TV Endocarditis,Lung cavities likly septic emboli No diarrhoea No Fever no Abd pain No SOB Up in chair, comfortable Objective Vital Signs Vital Signs Date Time Temp Pulse Resp B/P (MAP) Pulse Ox O2 Delivery O2 Flow Rate FiO2 12/14/16 17:38 93 12/14/16 16:00 98.3 113 20 131/81 (98) 94 12/14/16 12:00 98.3 118 20 116/75 (89) 95 12/14/16 08:05 Room Air 12/14/16 08:00 98.8 116 20 120/72 (88) 97 12/14/16 07:48 109 12/14/16 03:22 98.3 111 16 111/75 (87) 95 12/14/16 00:00 97.6 119 20 118/72 (87) 96 12/13/16 21:58 95 21 12/13/16 21:08 Room Air 12/13/16 20:00 97.7 125 20 122/77 (92) 95 12/13/16 19:59 121 I/O 12/13/16 12/13/16 12/13/16 12/14/16 12/14/16 12/14/16 07:00 15:00 23:00 07:00 15:00 23:00 Intake Total 280 ml 840 ml 480 ml 100 ml 600 ml Output Total 550 ml 600 ml 1200 ml 675 ml Balance -270 ml 240 ml -720 ml 100 ml -75 ml Intake Oral 280 ml 840 ml 480 ml 600 ml IV Total 100 ml Output Urine Total 550 ml 600 ml 1200 ml 675 ml # Voids 1 3 # Bowel Movements 0 1 1 0 Result Diagram: 12/14/16 0612/14/16 06 Objective Remarks GENERAL: MBMN WM, NAD SKIN: Warm and dry. HEAD: Normocephalic. EYES: No scleral icterus. No injection or drainage. NECK: Supple, trachea midline. No JVD or lymphadenopathy. CARDIOVASCULAR: Regular rate and rhythm without murmurs, gallops, or rubs. RESPIRATORY: Breath sounds equal bilaterally. No accessory muscle use. GASTROINTESTINAL: Abdomen soft, non-tender, nondistended. MUSCULOSKELETAL: No cyanosis, or edema. BACK: Nontender without obvious deformity. No CVA tenderness. A/P Assessment and Plan Pneumonia Septic emboli TV Endocarditis IV drug use Pleural effusion PLAN Cont Abx per ID Aerosol nebs Stable on RA Pl fluid cytology Negative Stable from pulm standpoint Agustin Marc MD Dec 14, 2016 19:45
[2016-12-15] VITALS: BP 130/82; PULSE 112; RESP 18; TEMP 98.2; O2SAT 95
[2016-12-15] MEDS: ACETAMINOPHEN/HYDROcodone 325 MG/10 MG TAB PO PRN ×6 (02:02→23:00)
[2016-12-15] MEDS: CHLORHEXIDINE GLUCONATE 2 % 1 PACK (2 CLOTHS) TOP SCH (03:10)
[2016-12-15 04:00] VITALS: BP 125/71; PULSE 113; RESP 16; TEMP 98.2; O2SAT 95
[2016-12-15] MEDS: HYDROmorphone HCL PF 1 MG/ML VIAL IV PUSH PRN ×2 (04:12→08:18)
[2016-12-15 08:00] VITALS: BP 112/75; PULSE 113; RESP 18; TEMP 98.2; O2SAT 94
[2016-12-15] MEDS: PANTOPRAZOLE SOD 40 MG DELAYED RELEASE TAB PO SCH (08:18)
[2016-12-15] MEDS: POTASSIUM CHLORIDE 10 MEQ CONTROLLED RELEASE TAB PO SCH ×2 (08:18→20:21)
[2016-12-15] MEDS: CALCIUM CARBONATE 500 MG CHEWABLE TAB CHEW SCH ×2 (08:18→20:21)
[2016-12-15] MEDS: guaiFENesin E.R. 600 MG TAB PO SCH ×2 (08:18→20:21)
[2016-12-15] MEDS: COLLAGENASE OINT 30 GM TUBE TOPICAL SCH (08:19)
--- NOTE | 2016-12-15 09:59 | HHI.PR ---
Subjective Remarks Follow-up tricuspid valve infective endocarditis 12/12/16-patient seen and examined, currently afebrile. Still feels weak. Denies any chest pain or shortness of breath. 12/13/16-patient seen and examined, stable and no change. Good appetite 12/14/16-patient seen and examined, reports episode of tachycardia with movement otherwise stable. No other issues. States he is getting stronger 12/15/16-patient seen and examined, stable. He was seen up and ambulated. Feels he is getting stronger Objective Vitals Vital Signs Date Time Temp Pulse Resp B/P (MAP) Pulse Ox O2 Delivery O2 Flow Rate FiO2 12/15/16 08:00 98.2 113 18 112/75 (87) 94 12/15/16 04:00 98.2 113 16 125/71 (89) 95 12/15/16 00:00 98.2 112 18 130/82 (98) 95 12/14/16 20:00 Room Air 12/14/16 20:00 98.4 115 20 122/84 (97) 93 12/14/16 17:38 93 12/14/16 16:00 98.3 113 20 131/81 (98) 94 12/14/16 12:00 98.3 118 20 116/75 (89) 95 I/O 12/14/16 12/14/16 12/14/16 12/15/16 12/15/16 12/15/16 07:00 15:00 23:00 07:00 15:00 23:00 Intake Total 480 ml 100 ml 600 ml 620 ml Output Total 1200 ml 675 ml 1050 ml Balance -720 ml 100 ml -75 ml -430 ml Intake Oral 480 ml 600 ml 620 ml IV Total 100 ml Output Urine Total 1200 ml 675 ml 1050 ml # Bowel Movements 0 1 Result Diagram: 12/14/16 0600 12/14/16 0600 Objective Remarks GENERAL: NAD SKIN: Warm and dry. HEAD: Normocephalic. EYES: No scleral icterus. No injection or drainage. NECK: Supple, trachea midline. No JVD or lymphadenopathy. CARDIOVASCULAR: Regular rate and rhythm without murmurs, gallops, or rubs. RESPIRATORY: Breath sounds equal bilaterally. No accessory muscle use. GASTROINTESTINAL: Abdomen soft, non-tender, nondistended. MUSCULOSKELETAL: No cyanosis, or edema. BACK: Nontender without obvious deformity. No CVA tenderness. 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 Appreciate input from plastic surgery Continue with current wound care Metabolic encephalopathy- resolved Acute hypoxic and hypercarbic respiratory failure-resolved Septic pulmonary emboli Pulmonary Edema-resolved Severe ARDS BETTER-RESOLVED Right pleural effusion s/p thoracentesis on 12/03/16 with 800 cc fluid removal RACHEL Intravascular volume overload Hypernatremia..improving Resolved Nephrology signed off Colon cancer on radiation treatment Hepatitis C THROMBOCYTOPENIA CHRONIC Anemia secondary to chronic illness transfused 3 units PRBC total on 11/22, stool Hemoccult negative Continue to monitor LFTs Physical deconditioning Continue aggressive physical therapy Alejo Barragan MD Dec 15, 2016 09:59
[2016-12-15 11:46] VITALS: BP 119/76; PULSE 113; RESP 18; TEMP 98.2; O2SAT 93
[2016-12-15] MEDS: SODIUM CHLORIDE 0.9% IV SCH (12:19)
[2016-12-15] MEDS: DAPTOMYCIN IV SCH (12:19)
[2016-12-15 16:00] VITALS: BP 114/71; PULSE 115; RESP 18; TEMP 97.6; O2SAT 92
--- NOTE | 2016-12-15 18:39 | HHI.PR ---
Subjective Remarks 45 YOWM with TV Endocarditis,Lung cavities likly septic emboli No diarrhoea No Fever no Abd pain No SOB No new complaint Objective Vital Signs Vital Signs Date Time Temp Pulse Resp B/P (MAP) Pulse Ox O2 Delivery O2 Flow Rate FiO2 12/15/16 16:00 97.6 115 18 114/71 (85) 92 12/15/16 11:46 98.2 113 18 119/76 (90) 93 12/15/16 08:14 Room Air 12/15/16 08:00 98.2 113 18 112/75 (87) 94 12/15/16 04:00 98.2 113 16 125/71 (89) 95 12/15/16 00:00 98.2 112 18 130/82 (98) 95 12/14/16 20:00 Room Air 12/14/16 20:00 98.4 115 20 122/84 (97) 93 I/O 12/14/16 12/14/16 12/14/16 12/15/16 12/15/16 12/15/16 07:00 15:00 23:00 07:00 15:00 23:00 Intake Total 480 ml 100 ml 600 ml 620 ml Output Total 1200 ml 675 ml 1050 ml Balance -720 ml 100 ml -75 ml -430 ml Intake Oral 480 ml 600 ml 620 ml IV Total 100 ml Output Urine Total 1200 ml 675 ml 1050 ml # Bowel Movements 0 1 Result Diagram: 12/14/16 0600 12/14/16 0600 Objective Remarks GENERAL: MBMN WM, NAD SKIN: Warm and dry. HEAD: Normocephalic. EYES: No scleral icterus. No injection or drainage. NECK: Supple, trachea midline. No JVD or lymphadenopathy. CARDIOVASCULAR: Regular rate and rhythm without murmurs, gallops, or rubs. RESPIRATORY: Breath sounds equal bilaterally. No accessory muscle use. GASTROINTESTINAL: Abdomen soft, non-tender, nondistended. MUSCULOSKELETAL: No cyanosis, or edema. BACK: Nontender without obvious deformity. No CVA tenderness. A/P Assessment and Plan Pneumonia Septic emboli TV Endocarditis IV drug use Pleural effusion PLAN Cont Abx per ID Aerosol nebs Pl fluid cytology Negative Stable from pulm standpoint Agustin Marc MD Dec 15, 2016 18:39
[2016-12-15 20:00] VITALS: BP 115/73; PULSE 122; RESP 16; TEMP 98.2; O2SAT 96
[2016-12-16] VITALS: BP 123/64; PULSE 108; RESP 16; TEMP 98; O2SAT 95
[2016-12-16 04:00] VITALS: BP 113/67; PULSE 111; RESP 16; TEMP 99.7; O2SAT 96
[2016-12-16] MEDS: CHLORHEXIDINE GLUCONATE 2 % 1 PACK (2 CLOTHS) TOP SCH (04:00)
[2016-12-16] MEDS: ACETAMINOPHEN/HYDROcodone 325 MG/10 MG TAB PO PRN ×5 (04:31→21:38)
[2016-12-16 08:00] VITALS: BP 126/79; PULSE 113; RESP 18; TEMP 98; O2SAT 96
[2016-12-16] MEDS: PANTOPRAZOLE SOD 40 MG DELAYED RELEASE TAB PO SCH (08:19)
[2016-12-16] MEDS: CALCIUM CARBONATE 500 MG CHEWABLE TAB CHEW SCH ×2 (08:19→21:39)
[2016-12-16] MEDS: guaiFENesin E.R. 600 MG TAB PO SCH ×2 (08:19→21:38)
[2016-12-16] MEDS: POTASSIUM CHLORIDE 10 MEQ CONTROLLED RELEASE TAB PO SCH ×2 (08:20→21:37)
--- NOTE | 2016-12-16 10:07 | HHI.PR ---
Subjective Remarks Follow-up tricuspid valve infective endocarditis 12/12/16-patient seen and examined, currently afebrile. Still feels weak. Denies any chest pain or shortness of breath. 12/13/16-patient seen and examined, stable and no change. Good appetite 12/14/16-patient seen and examined, reports episode of tachycardia with movement otherwise stable. No other issues. States he is getting stronger 12/15/16-patient seen and examined, stable. He was seen up and ambulated. Feels he is getting stronger 12/16/16-patient seen and examined, walking more on his feet. Getting much more stronger. Afebrile Objective Vitals Vital Signs Date Time Temp Pulse Resp B/P (MAP) Pulse Ox O2 Delivery O2 Flow Rate FiO2 12/16/16 08:00 98.0 113 18 126/79 (95) 96 12/16/16 04:00 99.7 111 16 113/67 (82) 96 12/16/16 00:00 98.0 108 16 123/64 (83) 95 12/15/16 20:00 Room Air 12/15/16 20:00 98.2 122 16 115/73 (87) 96 12/15/16 16:00 97.6 115 18 114/71 (85) 92 12/15/16 11:46 98.2 113 18 119/76 (90) 93 I/O 12/15/16 12/15/16 12/15/16 12/16/16 12/16/16 12/16/16 07:00 15:00 23:00 07:00 15:00 23:00 Intake Total 620 ml 720 ml Output Total 1050 ml 700 ml 400 ml Balance -430 ml 20 ml -400 ml Intake Oral 620 ml 720 ml Output Urine Total 1050 ml 700 ml 400 ml # Bowel Movements 1 1 Result Diagram: 12/14/16 0600 12/14/16 06 Objective Remarks GENERAL: NAD SKIN: Warm and dry. HEAD: Normocephalic. EYES: No scleral icterus. No injection or drainage. NECK: Supple, trachea midline. No JVD or lymphadenopathy. CARDIOVASCULAR: Regular rate and rhythm without murmurs, gallops, or rubs. RESPIRATORY: Breath sounds equal bilaterally. No accessory muscle use. GASTROINTESTINAL: Abdomen soft, non-tender, nondistended. MUSCULOSKELETAL: No cyanosis, or edema. BACK: Nontender without obvious deformity. No CVA tenderness. 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 Appreciate input from plastic surgery Continue with current wound care Metabolic encephalopathy- resolved Acute hypoxic and hypercarbic respiratory failure-resolved Septic pulmonary emboli Pulmonary Edema-resolved Severe ARDS BETTER-RESOLVED Right pleural effusion s/p thoracentesis on 12/03/16 with 800 cc fluid removal and cytology negative Continue with Aerosol nebs RACHEL Intravascular volume overload Hypernatremia..improving Resolved Nephrology signed off Colon cancer on radiation treatment Hepatitis C THROMBOCYTOPENIA CHRONIC Anemia secondary to chronic illness transfused 3 units PRBC total on 11/22, stool Hemoccult negative Continue to monitor LFTs Physical deconditioning Continue aggressive physical therapy Alejo Barragan MD Dec 16, 2016 10:07
[2016-12-16 12:00] VITALS: BP 124/65; PULSE 111; RESP 18; TEMP 98.2; O2SAT 95
[2016-12-16] MEDS: SODIUM CHLORIDE 0.9% IV SCH (12:28)
[2016-12-16] MEDS: DAPTOMYCIN IV SCH (12:28)
[2016-12-16 16:00] VITALS: BP 115/73; PULSE 112; RESP 20; TEMP 98.6; O2SAT 97
--- NOTE | 2016-12-16 17:17 | HHI.PR ---
Subjective Remarks 45 YOWM with TV Endocarditis,Lung cavities likly septic emboli No diarrhoea No Fever no Abd pain No SOB No new complaint Mother at BS Objective Vital Signs Vital Signs Date Time Temp Pulse Resp B/P (MAP) Pulse Ox O2 Delivery O2 Flow Rate FiO2 12/16/16 12:00 98.2 111 18 124/65 (84) 95 12/16/16 08:00 98.0 113 18 126/79 (95) 96 12/16/16 08:00 96 Room Air 21 12/16/16 04:00 99.7 111 16 113/67 (82) 96 12/16/16 00:00 98.0 108 16 123/64 (83) 95 12/15/16 20:00 Room Air 12/15/16 20:00 98.2 122 16 115/73 (87) 96 I/O 12/15/16 12/15/16 12/15/16 12/16/16 12/16/16 12/16/16 07:00 15:00 23:00 07:00 15:00 23:00 Intake Total 620 ml 720 ml 100 ml Output Total 1050 ml 700 ml 400 ml Balance -430 ml 20 ml -400 ml 100 ml Intake Oral 620 ml 720 ml IV Total 100 ml Output Urine Total 1050 ml 700 ml 400 ml # Bowel Movements 1 1 Result Diagram: 12/14/16 0612/14/16 06 Objective Remarks GENERAL: MBMN WM, NAD SKIN: Warm and dry. HEAD: Normocephalic. EYES: No scleral icterus. No injection or drainage. NECK: Supple, trachea midline. No JVD or lymphadenopathy. CARDIOVASCULAR: Regular rate and rhythm without murmurs, gallops, or rubs. RESPIRATORY: Breath sounds equal bilaterally. No accessory muscle use. GASTROINTESTINAL: Abdomen soft, non-tender, nondistended. MUSCULOSKELETAL: No cyanosis, or edema. BACK: Nontender without obvious deformity. No CVA tenderness. A/P Assessment and Plan Pneumonia Septic emboli TV Endocarditis IV drug use Pleural effusion PLAN Cont Abx per ID Aerosol nebs Pl fluid cytology Negative Stable from pulm standpoint DW pt and his mother. Agustin Marc MD Dec 16, 2016 17:17
[2016-12-16 20:00] VITALS: BP 112/68; PULSE 114; RESP 20; TEMP 98.4; O2SAT 93
[2016-12-17] VITALS: BP 124/77; PULSE 105; RESP 20; TEMP 98.1; O2SAT 94
[2016-12-17] MEDS: CHLORHEXIDINE GLUCONATE 2 % 1 PACK (2 CLOTHS) TOP SCH (01:12)
[2016-12-17] MEDS: ACETAMINOPHEN/HYDROcodone 325 MG/10 MG TAB PO PRN ×5 (02:35→21:48)
[2016-12-17 04:00] VITALS: BP 108/74; PULSE 107; RESP 20; TEMP 98; O2SAT 95
[2016-12-17] MEDS: COLLAGENASE OINT 30 GM TUBE TOPICAL SCH (08:14)
[2016-12-17] MEDS: CALCIUM CARBONATE 500 MG CHEWABLE TAB CHEW SCH ×2 (08:23→21:47)
[2016-12-17] MEDS: guaiFENesin E.R. 600 MG TAB PO SCH ×2 (08:23→21:47)
[2016-12-17] MEDS: PANTOPRAZOLE SOD 40 MG DELAYED RELEASE TAB PO SCH (08:23)
[2016-12-17] MEDS: POTASSIUM CHLORIDE 10 MEQ CONTROLLED RELEASE TAB PO SCH ×2 (08:23→21:47)
[2016-12-17 08:56] VITALS: BP 125/91; PULSE 115; RESP 16; TEMP 97.7; O2SAT 97
--- NOTE | 2016-12-17 09:55 | HHI.PR ---
Subjective Remarks Follow-up tricuspid valve infective endocarditis 12/12/16-patient seen and examined, currently afebrile. Still feels weak. Denies any chest pain or shortness of breath. 12/13/16-patient seen and examined, stable and no change. Good appetite 12/14/16-patient seen and examined, reports episode of tachycardia with movement otherwise stable. No other issues. States he is getting stronger 12/15/16-patient seen and examined, stable. He was seen up and ambulated. Feels he is getting stronger 12/16/16-patient seen and examined, walking more on his feet. Getting much more stronger. Afebrile 12/17/16; patient unable to ambulates without much with assistance. States he is ready for discharge. Objective Vitals Vital Signs Date Time Temp Pulse Resp B/P (MAP) Pulse Ox O2 Delivery O2 Flow Rate FiO2 12/17/16 08:56 97.7 115 16 125/91 (102) 97 12/17/16 08:25 Room Air 12/17/16 04:00 98.0 107 20 108/74 (85) 95 12/17/16 00:00 98.1 105 20 124/77 (93) 94 12/16/16 20:00 Room Air 12/16/16 20:00 98.4 114 20 112/68 (83) 93 12/16/16 16:00 98.6 112 20 115/73 (87) 97 12/16/16 12:00 98.2 111 18 124/65 (84) 95 I/O 12/16/16 12/16/16 12/16/16 12/17/16 12/17/16 12/17/16 07:00 15:00 23:00 07:00 15:00 23:00 Intake Total 100 ml 1000 ml 240 ml Output Total 400 ml 300 ml 300 ml Balance -400 ml 100 ml 700 ml -60 ml Intake Oral 1000 ml 240 ml IV Total 100 ml Output Urine Total 400 ml 300 ml 300 ml # Voids 6 # Bowel Movements 2 0 Result Diagram: 12/14/16 0612/14/16 06 Objective Remarks GENERAL: NAD SKIN: Warm and dry. HEAD: Normocephalic. EYES: No scleral icterus. No injection or drainage. NECK: Supple, trachea midline. No JVD or lymphadenopathy. CARDIOVASCULAR: Regular rate and rhythm without murmurs, gallops, or rubs. RESPIRATORY: Breath sounds equal bilaterally. No accessory muscle use. GASTROINTESTINAL: Abdomen soft, non-tender, nondistended. MUSCULOSKELETAL: No cyanosis, or edema. BACK: Nontender without obvious deformity. No CVA tenderness. 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 Appreciate input from plastic surgery Continue with current wound care Metabolic encephalopathy- resolved Acute hypoxic and hypercarbic respiratory failure-resolved Septic pulmonary emboli Pulmonary Edema-resolved Severe ARDS BETTER-RESOLVED Right pleural effusion s/p thoracentesis on 12/03/16 with 800 cc fluid removal and cytology negative Continue with Aerosol nebs RACHEL Intravascular volume overload Hypernatremia..improving Resolved Nephrology signed off Colon cancer on radiation treatment Hepatitis C THROMBOCYTOPENIA CHRONIC Anemia secondary to chronic illness transfused 3 units PRBC total on 11/22, stool Hemoccult negative Continue to monitor LFTs Physical deconditioning-improving Continue aggressive physical therapy Alejo Barragan MD Dec 17, 2016 09:55
[2016-12-17] MEDS: DAPTOMYCIN IV SCH (12:22)
[2016-12-17] MEDS: SODIUM CHLORIDE 0.9% IV SCH (12:22)
[2016-12-17 13:33] VITALS: BP 110/74; PULSE 115; RESP 18; TEMP 98.1; O2SAT 95
[2016-12-17 16:00] VITALS: BP 125/77; PULSE 119; RESP 20; TEMP 97.6; O2SAT 95
[2016-12-17 20:00] VITALS: BP 117/64; PULSE 110; RESP 20; TEMP 97.6; O2SAT 95
--- NOTE | 2016-12-17 20:35 | HHI.PR ---
Subjective Remarks 45 YOWM with TV Endocarditis,Lung cavities likly septic emboli No diarrhoea No Fever no Abd pain No SOB No new complaint Objective Vital Signs Vital Signs Date Time Temp Pulse Resp B/P (MAP) Pulse Ox O2 Delivery O2 Flow Rate FiO2 12/17/16 16:00 97.6 119 20 125/77 (93) 95 12/17/16 16:00 Room Air 12/17/16 13:33 98.1 115 18 110/74 (86) 95 12/17/16 12:00 Room Air 12/17/16 08:56 97.7 115 16 125/91 (102) 97 12/17/16 08:25 Room Air 12/17/16 04:00 98.0 107 20 108/74 (85) 95 12/17/16 00:00 98.1 105 20 124/77 (93) 94 I/O 12/16/16 12/16/16 12/16/16 12/17/16 12/17/16 12/17/16 07:00 15:00 23:00 07:00 15:00 23:00 Intake Total 100 ml 1000 ml 240 ml 720 ml Output Total 400 ml 300 ml 300 ml Balance -400 ml 100 ml 700 ml -60 ml 720 ml Intake Oral 1000 ml 240 ml 720 ml IV Total 100 ml Output Urine Total 400 ml 300 ml 300 ml # Voids 6 4 # Bowel Movements 2 0 0 Result Diagram: 12/14/16 0600 12/14/16 0600 Objective Remarks GENERAL: MBMN WM, NAD SKIN: Warm and dry. HEAD: Normocephalic. EYES: No scleral icterus. No injection or drainage. NECK: Supple, trachea midline. No JVD or lymphadenopathy. CARDIOVASCULAR: Regular rate and rhythm without murmurs, gallops, or rubs. RESPIRATORY: Breath sounds equal bilaterally. No accessory muscle use. GASTROINTESTINAL: Abdomen soft, non-tender, nondistended. MUSCULOSKELETAL: No cyanosis, or edema. BACK: Nontender without obvious deformity. No CVA tenderness. A/P Assessment and Plan Pneumonia Septic emboli TV Endocarditis IV drug use Pleural effusion PLAN Cont Abx per ID Aerosol nebs Pl fluid cytology Negative Stable from pulm standpoint Agustin Marc MD Dec 17, 2016 20:35
[2016-12-18] VITALS: BP 115/76; PULSE 112; RESP 18; TEMP 98.3; O2SAT 95
[2016-12-18] MEDS: CHLORHEXIDINE GLUCONATE 2 % 1 PACK (2 CLOTHS) TOP SCH (03:25)
[2016-12-18] MEDS: ACETAMINOPHEN/HYDROcodone 325 MG/10 MG TAB PO PRN ×4 (03:25→22:04)
[2016-12-18 04:00] VITALS: BP 110/82; PULSE 111; RESP 18; TEMP 98.4; O2SAT 97
[2016-12-18 08:00] VITALS: BP 113/77; PULSE 106; RESP 20; TEMP 98; O2SAT 96
[2016-12-18] MEDS: COLLAGENASE OINT 30 GM TUBE TOPICAL SCH (09:00)
[2016-12-18] MEDS: POTASSIUM CHLORIDE 10 MEQ CONTROLLED RELEASE TAB PO SCH ×2 (09:00→22:03)
--- NOTE | 2016-12-18 10:14 | HHI.PR ---
Subjective Remarks Follow-up tricuspid valve infective endocarditis 12/12/16-patient seen and examined, currently afebrile. Still feels weak. Denies any chest pain or shortness of breath. 12/13/16-patient seen and examined, stable and no change. Good appetite 12/14/16-patient seen and examined, reports episode of tachycardia with movement otherwise stable. No other issues. States he is getting stronger 12/15/16-patient seen and examined, stable. He was seen up and ambulated. Feels he is getting stronger 12/16/16-patient seen and examined, walking more on his feet. Getting much more stronger. Afebrile 12/17/16; patient unable to ambulates without much with assistance. States he is ready for discharge. 12/18/16-patient states his appetite and ambulated without assistance. Patient' s mom was taught on how to change his wound dressing yesterday Objective Vitals Vital Signs Date Time Temp Pulse Resp B/P (MAP) Pulse Ox O2 Delivery O2 Flow Rate FiO2 12/18/16 08:00 98.0 106 20 113/77 (89) 96 12/18/16 04:00 98.4 111 18 110/82 (91) 97 12/18/16 00:00 98.3 112 18 115/76 (89) 95 12/17/16 20:00 97.6 110 20 117/64 (81) 95 12/17/16 19:15 Room Air 12/17/16 16:00 97.6 119 20 125/77 (93) 95 12/17/16 16:00 Room Air 12/17/16 13:33 98.1 115 18 110/74 (86) 95 12/17/16 12:00 Room Air I/O 12/17/16 12/17/16 12/17/16 12/18/16 12/18/16 12/18/16 07:00 15:00 23:00 07:00 15:00 23:00 Intake Total 240 ml 720 ml 960 ml Output Total 300 ml Balance -60 ml 720 ml 960 ml Intake Oral 240 ml 720 ml 960 ml Output Urine Total 300 ml # Voids 4 4 # Bowel Movements 0 0 Result Diagram: 12/14/16 0600 12/14/16 0600 Imaging Last Impressions Lumbar Spine MRI 12/07/16 0000 Signed Impressions: Service Date/Time: Wednesday, December 07, 2016 09:15 - CONCLUSION: Negative MRI of the lumbar spine. There is no abnormal contrast enhancement. Michael Youssef MD FACR Cervical Spine MRI 12/07/16 0000 Signed Impressions: Service Date/Time: Wednesday, December 07, 2016 09:15 - CONCLUSION: 1. Stable MRI of the cervical spine with minimal edema interspinous ligament at C6 and C7. 2. Stable hemangioma C7. Michael Youssef MD FACR Brain MRI 12/07/16 0000 Signed Impressions: Service Date/Time: Wednesday, December 07, 2016 09:15 - CONCLUSION: 1 cm focal area of enhancement medina-white matter junction and left proximal region associated with minimal edema. This on the cortical surface of the brain and may well be subacute infarction. Cortical infarctions are usually associated with venous thrombosis however I see no evidence for such. This could be related to an embolic process there but this is the only evidence for such. Michael Youssef MD FACR Thoracentesis Ultrasound 12/03/16 0600 Signed Impressions: Service Date/Time: November 09:59 - CONCLUSION: Uncomplicated ultrasound guided thoracentesis. Zeyad Bryant MD Chest X-Ray 12/03/16 0000 Signed Impressions: Service Date/Time: November 10:30 - CONCLUSION: 1. No pneumothorax status-post right thoracentesis. 2. Stable scattered pulmonary nodules bilaterally. Zeyad Bryant MD Chest Ultrasound 12/02/16 0000 Signed Impressions: Service Date/Time: Friday, December 02, 2016 14:26 - CONCLUSION: Sizable right pleural effusion. Estimated volume is 600 cc. Alexander Youssef MD Chest CT 12/02/16 0000 Signed Impressions: Service Date/Time: Friday, December 02, 2016 13:06 - CONCLUSION: 1. Interval improvement in diffuse numerous bilateral cavitary pulmonary nodules with near interval resolution of intervening patchy diffuse bilateral airspace consolidations. Findings are compatible with improving diffuse/atypical infection. 2. Small to moderate, right greater than left, simple appearing bilateral pleural effusions. Checo Leon MD Lumbar Puncture Fluoroscopy 11/21/16 0000 Signed Impressions: Service Date/Time: Wednesday, November 23, 2016 15:08 - CONCLUSION: Uncomplicated fluoroscopically guided lumbar puncture with pressures as above. Horace Kirkland MD Thoracic Spine MRI 11/20/16 0000 Signed Impressions: Service Date/Time: Sunday, November 20, 2016 21:36 - CONCLUSION: 1. No focal abnormality within the thoracic spine. 2. There is edema/inflammatory change seen in the soft tissues to the left of the C7 and T1 spinous processes better seen on the cervical spine MRI examination. 3. Cavitary lesions in the lungs. Manolo Anne MD Abdomen/Pelvis CT 11/20/16 0000 Signed Impressions: Service Date/Time: Sunday, November 20, 2016 11:30 - CONCLUSION: Significant aeration appearance of the lungs. Generalized anasarca, negative for abscess. Adults abdominal abscess. Michael Youssef MD FACR Renal Ultrasound 11/15/16 0000 Signed Impressions: Service Date/Time: Tuesday, November 15, 2016 10:26 - CONCLUSION: Normal examination. Katie Nevarez MD Objective Remarks GENERAL: NAD SKIN: Warm and dry. HEAD: Normocephalic. EYES: No scleral icterus. No injection or drainage. NECK: Supple, trachea midline. No JVD or lymphadenopathy. CARDIOVASCULAR: Regular rate and rhythm without murmurs, gallops, or rubs. RESPIRATORY: Breath sounds equal bilaterally. No accessory muscle use. GASTROINTESTINAL: Abdomen soft, non-tender, nondistended. MUSCULOSKELETAL: No cyanosis, or edema. BACK: Nontender without obvious deformity. No CVA tenderness. 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 Appreciate input from plastic surgery Continue with current wound care Patient believes his wound dressing can be changed by his mom, as she was taught on how to do it yesterday 12/17/16 Metabolic encephalopathy- resolved Acute hypoxic and hypercarbic respiratory failure-resolved Septic pulmonary emboli Pulmonary Edema-resolved Severe ARDS BETTER-RESOLVED Right pleural effusion s/p thoracentesis on 12/03/16 with 800 cc fluid removal and cytology negative Continue with Aerosol nebs RACHEL Intravascular volume overload Hypernatremia..improving Resolved Nephrology signed off Colon cancer on radiation treatment Hepatitis C THROMBOCYTOPENIA CHRONIC Anemia secondary to chronic illness transfused 3 units PRBC total on 11/22, stool Hemoccult negative Continue to monitor LFTs Physical deconditioning-improving Continue aggressive physical therapy Alejo Barragan MD Dec 18, 2016 10:14
[2016-12-18] MEDS: PANTOPRAZOLE SOD 40 MG DELAYED RELEASE TAB PO SCH (11:04)
[2016-12-18] MEDS: CALCIUM CARBONATE 500 MG CHEWABLE TAB CHEW SCH ×2 (11:05→22:03)
[2016-12-18] MEDS: guaiFENesin E.R. 600 MG TAB PO SCH ×2 (11:05→22:02)
[2016-12-18 12:00] VITALS: BP 117/79; PULSE 113; RESP 20; TEMP 96; O2SAT 97
[2016-12-18] MEDS: SODIUM CHLORIDE 0.9% IV SCH (12:27)
[2016-12-18] MEDS: DAPTOMYCIN IV SCH (12:27)
[2016-12-18] MEDS ORDERED: SOLU250I IV PUSH (14:06)
[2016-12-18] MEDS ORDERED: EPIN1INJ21 IV PUSH (14:06)
[2016-12-18] MEDS ORDERED: EPIN1INJ21 SQ (14:06)
[2016-12-18] MEDS ORDERED: DAPT500P IV (14:06)
--- NOTE | 2016-12-18 14:11 | HHI.FF ---
Infusion Therapy Location of Infusion Therapy: Ambulatory Infusion Therapy Order Patient Information Appointment Date: Dec 18, 2016 Patient Weight 60.3 kg Diagnosis: Diagnosis MRSA TV endocarditis. MRSA Cerebritis MRSA Septic Emboli Rectal Cancer Coded Allergies: No Known Allergies (Unverified , 11/15/16) Administer Medication Daptomycin 590 mg IV every 24 hours Start Treatment: Dec 19, 2016 Stop Treatment: Jan 08, 2017 Additional Information Venous access: PICC Line Additional Instructions [x] Peripheral flush and dressing changes per protocol [x] Implanted port and central engineer station mainline: * Implanted port: 10 ml Normal Saline followed by 5 ml Heparin 100 units/ml Heparin flush after each use and monthly to maintain. [] May leave port accessed during therapy. [] May leave peripheral site accessed for duration of therapy. [x] If patient has SOB or respiratory distress, check oxygen saturation. If less than 90% or clinical signs of respiratory distress, administer oxygen at 2 L/min. via nasal cannula and notify physician. [x] Anaphylaxis/Reaction orders: * Stop infusion. * Keep IV line open with saline flush. * Notify physician. * Monitor vital signs every 15 minutes until symptoms resolve. * Check Oxygen saturation; Oxygen at 2 L/min. via nasal cannula if less than 90% or clinical signs of respiratory distress. * Administer diphenhydramine (Benadryl) 25 mg IV STAT, (unless patient has received as pre-med). May repeat once, if necessary. * Solu-Cortef 250 mg IVP over 30-60 seconds, use 100 mg vials for each dissolution. * Epinephrine (1mg/1 ml) 0.3 mg subcutaneously or IVP now with any signs of respiratory distress. * Check with physician for new additional pre-med orders if patient is re- challenged or re-treated. [x] May remove PICC line when treatment complete, after confirming with Physician. [x] If the patient is admitted to the hospital, the ED, or transferred via [facility] , complete transfer form including medication reconciliation order sheet. Laboratory Tests Weekly Labs: CBC w/diff, Creatinine, CRP, LFT's (Hepatic function test), Serum CK Levels Additional Information Please draw weekly labs, Call with abnormals, change in clinical condition or problems to: or covering ID Physician Follow up appt: Follow up with PCP Follow up with other MDs as planned. Counseling: Counseled about medication side effects Counseled about PICC line care and hand hygiene. Lucille Lizama MD Dec 18, 2016 14:11
[2016-12-18 16:00] VITALS: BP 115/70; PULSE 110; RESP 20; TEMP 96; O2SAT 97
--- NOTE | 2016-12-18 16:36 | HHI.PR ---
Subjective Remarks 45 YOWM with TV Endocarditis,Lung cavities likly septic emboli No diarrhoea No Fever no Abd pain No SOB Objective Vital Signs Vital Signs Date Time Temp Pulse Resp B/P (MAP) Pulse Ox O2 Delivery O2 Flow Rate FiO2 12/18/16 12:00 96.0 113 20 117/79 (92) 97 12/18/16 08:00 98.0 106 20 113/77 (89) 96 12/18/16 04:00 98.4 111 18 110/82 (91) 97 12/18/16 00:00 98.3 112 18 115/76 (89) 95 12/17/16 20:00 97.6 110 20 117/64 (81) 95 12/17/16 19:15 Room Air I/O 12/17/16 12/17/16 12/17/16 12/18/16 12/18/16 12/18/16 07:00 15:00 23:00 07:00 15:00 23:00 Intake Total 240 ml 720 ml 960 ml Output Total 300 ml Balance -60 ml 720 ml 960 ml Intake Oral 240 ml 720 ml 960 ml Output Urine Total 300 ml # Voids 4 4 # Bowel Movements 0 0 Result Diagram: 12/14/16 0600 12/14/16 0600 Objective Remarks GENERAL: MBMN WM, NAD SKIN: Warm and dry. HEAD: Normocephalic. EYES: No scleral icterus. No injection or drainage. NECK: Supple, trachea midline. No JVD or lymphadenopathy. CARDIOVASCULAR: Regular rate and rhythm without murmurs, gallops, or rubs. RESPIRATORY: Breath sounds equal bilaterally. No accessory muscle use. GASTROINTESTINAL: Abdomen soft, non-tender, nondistended. MUSCULOSKELETAL: No cyanosis, or edema. BACK: Nontender without obvious deformity. No CVA tenderness. A/P Assessment and Plan Pneumonia Septic emboli TV Endocarditis IV drug use Pleural effusion PLAN Cont Abx per ID Aerosol nebs Pl fluid cytology Negative Stable from pulm standpoint Available prn over weekend. Agustin Marc MD Dec 18, 2016 16:36
[2016-12-18] MEDS ORDERED: SODIUM CHLORIDE 0.9% FLUSH 10 ML FLUSH IV FLUSH PRN (16:45)
--- NOTE | 2016-12-18 18:15 | RADRPT ---
EXAM DATE/TIME: 12/18/2016 17:43 [facility] COMPARISON: CHEST EXPIRATION ONLY, December 03, 2016, 10:30. INDICATIONS : Picc line placement. MEDICAL HISTORY : Carcinoma, colon. Endocarditis. SURGICAL HISTORY : chest drain ENCOUNTER: Initial ACUITY: 3 weeks PAIN SCORE: 0/10 LOCATION: Bilateral chest FINDINGS: There is a PICC present. The catheter tip ends at the level of the superior vena cava area is in sati sfactory position. There is a right-sided pleural effusion. This is small in size. This is stable compared to previous. The heart is normal in size. There is been partial interval clearing of the left lung compared to prior of 12/03/16. CONCLUSION: 1. PICC in satisfactory position. 2. Small right-sided effusion. 3. Improvement in the appearance of the left lung base compared to previous of 12/03/16. Alexander Youssef MD on December 18, 2016 at 18:12 Board Certified Radiologist. This report was verified electronically.
[2016-12-18 20:00] VITALS: BP 121/73; PULSE 109; RESP 20; TEMP 97.9; O2SAT 95
--- NOTE | 2016-12-18 20:25 | HHI.IDPN ---
Note Infectious Disease Note D/w case management he needs MRI brain, CT chest and 2D ECHO as outpatient. Will try to determine if this can be arranged before discharging pt. d/w Mom PICC being placed today. Vital Signs Date Time Temp Pulse Resp B/P (MAP) Pulse Ox O2 Delivery O2 Flow Rate FiO2 12/18/16 16:00 96.0 110 20 115/70 (85) 97 12/18/16 12:20 20 12/18/16 12:00 96.0 113 20 117/79 (92) 97 12/18/16 08:00 98.0 106 20 113/77 (89) 96 12/18/16 04:00 98.4 111 18 110/82 (91) 97 12/18/16 00:00 98.3 112 18 115/76 (89) 95 Laboratory Tests Test 12/18/16 18:00 Total Creatine Kinase 31 U/L Lucille Lizama MD Dec 18, 2016 20:25
[2016-12-19] VITALS: BP 116/84; PULSE 99; RESP 19; TEMP 98.3; O2SAT 95
[2016-12-19 04:00] VITALS: BP 123/76; PULSE 116; RESP 19; TEMP 98.2; O2SAT 96
[2016-12-19] MEDS: CHLORHEXIDINE GLUCONATE 2 % 1 PACK (2 CLOTHS) TOP SCH (04:00)
[2016-12-19] MEDS: ACETAMINOPHEN/HYDROcodone 325 MG/10 MG TAB PO PRN ×5 (04:33→21:52)
[2016-12-19 08:00] VITALS: BP 125/79; PULSE 110; RESP 18; TEMP 97.4; O2SAT 96
[2016-12-19] MEDS: COLLAGENASE OINT 30 GM TUBE TOPICAL SCH (09:00)
[2016-12-19] MEDS: PANTOPRAZOLE SOD 40 MG DELAYED RELEASE TAB PO SCH (09:05)
[2016-12-19] MEDS: POTASSIUM CHLORIDE 10 MEQ CONTROLLED RELEASE TAB PO SCH ×2 (09:05→21:52)
[2016-12-19] MEDS: guaiFENesin E.R. 600 MG TAB PO SCH ×2 (09:05→21:52)
[2016-12-19] MEDS: CALCIUM CARBONATE 500 MG CHEWABLE TAB CHEW SCH ×2 (09:05→21:52)
[2016-12-19] MEDS: SODIUM CHLORIDE 0.9% FLUSH 10 ML FLUSH IV FLUSH SCH ×2 (09:06→12:48)
--- NOTE | 2016-12-19 09:27 | HHI.PR ---
Subjective Remarks Follow-up tricuspid valve infective endocarditis 12/12/16-patient seen and examined, currently afebrile. Still feels weak. Denies any chest pain or shortness of breath. 12/13/16-patient seen and examined, stable and no change. Good appetite 12/14/16-patient seen and examined, reports episode of tachycardia with movement otherwise stable. No other issues. States he is getting stronger 12/15/16-patient seen and examined, stable. He was seen up and ambulated. Feels he is getting stronger 12/16/16-patient seen and examined, walking more on his feet. Getting much more stronger. Afebrile 12/17/16; patient unable to ambulates without much with assistance. States he is ready for discharge. 12/18/16-patient states his appetite and ambulated without assistance. Patient' s mom was taught on how to change his wound dressing yesterday 12/19/16-stable and no complaint. Currently afebrile. This was discussed yesterday with infectious disease specialist. Objective Vitals Vital Signs Date Time Temp Pulse Resp B/P (MAP) Pulse Ox O2 Delivery O2 Flow Rate FiO2 12/19/16 08:00 97.4 110 18 125/79 (94) 96 12/19/16 04:00 98.2 116 19 123/76 (92) 96 12/19/16 04:00 Room Air 12/19/16 00:00 Room Air 12/19/16 00:00 98.3 99 19 116/84 (95) 95 12/18/16 20:00 97.9 109 20 121/73 (89) 95 12/18/16 20:00 Room Air 12/18/16 16:00 96.0 110 20 115/70 (85) 97 12/18/16 12:20 20 12/18/16 12:00 96.0 113 20 117/79 (92) 97 I/O 12/18/16 12/18/16 12/18/16 12/19/16 12/19/16 12/19/16 07:00 15:00 23:00 07:00 15:00 23:00 Intake Total 960 ml 720 ml 480 ml Output Total 1000 ml Balance 960 ml -280 ml 480 ml Intake Oral 960 ml 720 ml 480 ml Output Urine Total 1000 ml # Voids 4 4 # Bowel Movements 1 Objective Remarks GENERAL: NAD SKIN: Warm and dry. HEAD: Normocephalic. EYES: No scleral icterus. No injection or drainage. NECK: Supple, trachea midline. No JVD or lymphadenopathy. CARDIOVASCULAR: Regular rate and rhythm without murmurs, gallops, or rubs. RESPIRATORY: Breath sounds equal bilaterally. No accessory muscle use. GASTROINTESTINAL: Abdomen soft, non-tender, nondistended. MUSCULOSKELETAL: No cyanosis, or edema. BACK: Nontender without obvious deformity. No CVA tenderness. Procedures SP VDRF SP LP A/P Problem List: (1) Endocarditis of tricuspid valve ICD Code: I36.8 - Other nonrheumatic tricuspid valve disorders Assessment and Plan 45-year-old man with MRSA Tricuspid Valve infective endocarditis Continue current antibiotics including Cubicin Management per infectious disease specialist Awaiting for final recommendation from infectious disease specialist Likely would get outpatient MRI, CT chest and repeat 2-D echo if these can be arranged by senior case manager prior to discharge Septic Shock Resolved Left buttocks pressure ulcer Status post debridement of left buttocks pressure wound on 12/09/16. Appreciate input from plastic surgery Continue with current wound care Metabolic encephalopathy- resolved Acute hypoxic and hypercarbic respiratory failure-resolved Septic pulmonary emboli Pulmonary Edema-resolved Severe ARDS BETTER-RESOLVED Right pleural effusion s/p thoracentesis on 12/03/16 with 800 cc fluid removal and cytology negative Continue with Aerosol nebs RACHEL Intravascular volume overload Hypernatremia..improving Resolved Nephrology signed off Colon cancer on radiation treatment Hepatitis C THROMBOCYTOPENIA CHRONIC Anemia secondary to chronic illness transfused 3 units PRBC total on 11/22, stool Hemoccult negative Continue to monitor LFTs Physical deconditioning-improving Continue aggressive physical therapy Alejo Barragan MD Dec 19, 2016 09:27
[2016-12-19 12:00] VITALS: BP 114/73; PULSE 110; RESP 18; TEMP 98.3; O2SAT 96
[2016-12-19] MEDS: DAPTOMYCIN IV SCH (12:49)
[2016-12-19] MEDS: SODIUM CHLORIDE 0.9% IV SCH (12:49)
[2016-12-19 16:00] VITALS: BP 104/82; PULSE 108; RESP 18; TEMP 98; O2SAT 96
[2016-12-19 20:00] VITALS: BP 126/81; PULSE 122; RESP 20; TEMP 97.9; O2SAT 93
[2016-12-20] VITALS (7 sets, daily range): BP systolic 107–126; BP diastolic 61–78; PULSE 103–116; RESP 20; TEMP 97.4–98.3; O2SAT 94–98
[2016-12-20] MEDS: CHLORHEXIDINE GLUCONATE 2 % 1 PACK (2 CLOTHS) TOP SCH (04:00)
[2016-12-20] MEDS: ACETAMINOPHEN/HYDROcodone 325 MG/10 MG TAB PO PRN ×5 (05:12→22:38)
[2016-12-20] MEDS: POTASSIUM CHLORIDE 10 MEQ CONTROLLED RELEASE TAB PO SCH ×2 (09:17→21:57)
[2016-12-20] MEDS: CALCIUM CARBONATE 500 MG CHEWABLE TAB CHEW SCH ×2 (09:17→21:57)
[2016-12-20] MEDS: PANTOPRAZOLE SOD 40 MG DELAYED RELEASE TAB PO SCH (09:17)
[2016-12-20] MEDS: guaiFENesin E.R. 600 MG TAB PO SCH ×2 (09:17→21:57)
[2016-12-20] MEDS: COLLAGENASE OINT 30 GM TUBE TOPICAL SCH (09:18)
[2016-12-20] MEDS: SODIUM CHLORIDE 0.9% FLUSH 10 ML FLUSH IV FLUSH SCH ×2 (09:19→21:58)
--- NOTE | 2016-12-20 10:07 | HHI.PR ---
Subjective Remarks Follow-up tricuspid valve infective endocarditis 12/12/16-patient seen and examined, currently afebrile. Still feels weak. Denies any chest pain or shortness of breath. 12/13/16-patient seen and examined, stable and no change. Good appetite 12/14/16-patient seen and examined, reports episode of tachycardia with movement otherwise stable. No other issues. States he is getting stronger 12/15/16-patient seen and examined, stable. He was seen up and ambulated. Feels he is getting stronger 12/16/16-patient seen and examined, walking more on his feet. Getting much more stronger. Afebrile 12/17/16; patient unable to ambulates without much with assistance. States he is ready for discharge. 12/18/16-patient states his appetite and ambulated without assistance. Patient' s mom was taught on how to change his wound dressing yesterday 12/19/16-stable and no complaint. Currently afebrile. This was discussed yesterday with infectious disease specialist. 12/20/16-no acute event overnight, looking for discharge home within the next 24 hours. Afebrile and denies any chest pain or shortness of breath. Objective Vitals Vital Signs Date Time Temp Pulse Resp B/P (MAP) Pulse Ox O2 Delivery O2 Flow Rate FiO2 12/20/16 08:00 97.9 113 20 118/61 (80) 98 12/20/16 04:00 97.6 106 20 114/73 (87) 96 12/20/16 04:00 Room Air 12/20/16 00:00 Room Air 12/20/16 00:00 97.4 103 20 110/72 (85) 95 12/19/16 20:00 97.9 122 20 126/81 (96) 93 12/19/16 20:00 Room Air 12/19/16 16:00 98.0 108 18 104/82 (89) 96 12/19/16 12:00 98.3 110 18 114/73 (87) 96 12/19/16 11:00 18 12/19/16 10:30 97 Room Air I/O 12/19/16 12/19/16 12/19/16 12/20/16 12/20/16 12/20/16 07:00 15:00 23:00 07:00 15:00 23:00 Intake Total 480 ml 960 ml Balance 480 ml 960 ml Intake Oral 480 ml 960 ml # Voids 4 3 # Bowel Movements 1 Imaging Last Impressions Chest X-Ray 12/18/16 0000 Signed Impressions: Service Date/Time: Sunday, December 18, 2016 17:43 - CONCLUSION: 1. PICC in satisfactory position. 2. Small right-sided effusion. 3. Improvement in the appearance of the left lung base compared to previous of 12/03/16. Alexander Youssef MD Lumbar Spine MRI 12/07/16 0000 Signed Impressions: Service Date/Time: Wednesday, December 07, 2016 09:15 - CONCLUSION: Negative MRI of the lumbar spine. There is no abnormal contrast enhancement. Michael Youssef MD FACR Cervical Spine MRI 12/07/16 0000 Signed Impressions: Service Date/Time: Wednesday, December 07, 2016 09:15 - CONCLUSION: 1. Stable MRI of the cervical spine with minimal edema interspinous ligament at C6 and C7. 2. Stable hemangioma C7. Michael Youssef MD FACR Brain MRI 12/07/16 0000 Signed Impressions: Service Date/Time: Wednesday, December 07, 2016 09:15 - CONCLUSION: 1 cm focal area of enhancement medina-white matter junction and left proximal region associated with minimal edema. This on the cortical surface of the brain and may well be subacute infarction. Cortical infarctions are usually associated with venous thrombosis however I see no evidence for such. This could be related to an embolic process there but this is the only evidence for such. Michael Youssef MD FACR Thoracentesis Ultrasound 12/03/16 0600 Signed Impressions: Service Date/Time: November 09:59 - CONCLUSION: Uncomplicated ultrasound guided thoracentesis. Zeyad Bryant MD Chest Ultrasound 12/02/16 0000 Signed Impressions: Service Date/Time: Friday, December 02, 2016 14:26 - CONCLUSION: Sizable right pleural effusion. Estimated volume is 600 cc. Alexander Youssef MD Chest CT 12/02/16 0000 Signed Impressions: Service Date/Time: Friday, December 02, 2016 13:06 - CONCLUSION: 1. Interval improvement in diffuse numerous bilateral cavitary pulmonary nodules with near interval resolution of intervening patchy diffuse bilateral airspace consolidations. Findings are compatible with improving diffuse/atypical infection. 2. Small to moderate, right greater than left, simple appearing bilateral pleural effusions. Checo Leon MD Lumbar Puncture Fluoroscopy 11/21/16 0000 Signed Impressions: Service Date/Time: Wednesday, November 23, 2016 15:08 - CONCLUSION: Uncomplicated fluoroscopically guided lumbar puncture with pressures as above. Horace Kirkland MD Thoracic Spine MRI 11/20/16 0000 Signed Impressions: Service Date/Time: Sunday, November 20, 2016 21:36 - CONCLUSION: 1. No focal abnormality within the thoracic spine. 2. There is edema/inflammatory change seen in the soft tissues to the left of the C7 and T1 spinous processes better seen on the cervical spine MRI examination. 3. Cavitary lesions in the lungs. Manolo Anne MD Abdomen/Pelvis CT 11/20/16 0000 Signed Impressions: Service Date/Time: Sunday, November 20, 2016 11:30 - CONCLUSION: Significant aeration appearance of the lungs. Generalized anasarca, negative for abscess. Adults abdominal abscess. Michael Youssef MD FACR Renal Ultrasound 11/15/16 0000 Signed Impressions: Service Date/Time: Tuesday, November 15, 2016 10:26 - CONCLUSION: Normal examination. Katie Nevarez MD Objective Remarks GENERAL: NAD SKIN: Warm and dry. HEAD: Normocephalic. EYES: No scleral icterus. No injection or drainage. NECK: Supple, trachea midline. No JVD or lymphadenopathy. CARDIOVASCULAR: Regular rate and rhythm without murmurs, gallops, or rubs. RESPIRATORY: Breath sounds equal bilaterally. No accessory muscle use. GASTROINTESTINAL: Abdomen soft, non-tender, nondistended. MUSCULOSKELETAL: No cyanosis, or edema. BACK: Nontender without obvious deformity. No CVA tenderness. Procedures SP VDRF SP LP A/P Problem List: (1) Endocarditis of tricuspid valve ICD Code: I36.8 - Other nonrheumatic tricuspid valve disorders Assessment and Plan 45-year-old man with MRSA Tricuspid Valve infective endocarditis Continue current antibiotics including Cubicin Management per infectious disease specialist Awaiting for final recommendation from infectious disease specialist Likely would get outpatient MRI, CT chest and repeat 2-D echo if these can be arranged by director case management prior to discharge Septic Shock Resolved Left buttocks pressure ulcer Status post debridement of left buttocks pressure wound on 12/09/16. Appreciate input from plastic surgery who signed off Continue with current wound care Patient's mother has been taught on how to change his dressing Metabolic encephalopathy- resolved Acute hypoxic and hypercarbic respiratory failure-resolved Septic pulmonary emboli Pulmonary Edema-resolved Severe ARDS BETTER-RESOLVED Right pleural effusion s/p thoracentesis on 12/03/16 with 800 cc fluid removal and cytology negative Continue with Aerosol nebs RACHEL Intravascular volume overload Hypernatremia..improving Resolved Nephrology signed off Colon cancer on radiation treatment Hepatitis C THROMBOCYTOPENIA CHRONIC Anemia secondary to chronic illness transfused 3 units PRBC total on 11/22, stool Hemoccult negative Continue to monitor LFTs Physical deconditioning-improving Continue aggressive physical therapy Alejo Barragan MD Dec 20, 2016 10:07
[2016-12-20] MEDS: SODIUM CHLORIDE 0.9% IV SCH (12:11)
[2016-12-20] MEDS: DAPTOMYCIN IV SCH (12:11)
[2016-12-21] VITALS: BP 99/65; PULSE 109; RESP 18; TEMP 97.7; O2SAT 97
[2016-12-21 04:00] VITALS: BP 106/77; PULSE 114; RESP 17; TEMP 97.8; O2SAT 98
[2016-12-21] MEDS: CHLORHEXIDINE GLUCONATE 2 % 1 PACK (2 CLOTHS) TOP SCH (04:00)
[2016-12-21] MEDS: ACETAMINOPHEN/HYDROcodone 325 MG/10 MG TAB PO PRN ×2 (04:55→09:30)
[2016-12-21 08:00] VITALS: BP 117/73; PULSE 120; RESP 18; TEMP 98.1; O2SAT 95
[2016-12-21] MEDS: COLLAGENASE OINT 30 GM TUBE TOPICAL SCH (09:00)
[2016-12-21] MEDS: POTASSIUM CHLORIDE 10 MEQ CONTROLLED RELEASE TAB PO SCH (09:29)
[2016-12-21] MEDS: guaiFENesin E.R. 600 MG TAB PO SCH (09:29)
[2016-12-21] MEDS: PANTOPRAZOLE SOD 40 MG DELAYED RELEASE TAB PO SCH (09:29)
[2016-12-21] MEDS: CALCIUM CARBONATE 500 MG CHEWABLE TAB CHEW SCH (09:29)
--- NOTE | 2016-12-21 10:40 | HHI.PR ---
Subjective Remarks Follow-up tricuspid valve infective endocarditis 12/12/16-patient seen and examined, currently afebrile. Still feels weak. Denies any chest pain or shortness of breath. 12/13/16-patient seen and examined, stable and no change. Good appetite 12/14/16-patient seen and examined, reports episode of tachycardia with movement otherwise stable. No other issues. States he is getting stronger 12/15/16-patient seen and examined, stable. He was seen up and ambulated. Feels he is getting stronger 12/16/16-patient seen and examined, walking more on his feet. Getting much more stronger. Afebrile 12/17/16; patient unable to ambulates without much with assistance. States he is ready for discharge. 12/18/16-patient states his appetite and ambulated without assistance. Patient' s mom was taught on how to change his wound dressing yesterday 12/19/16-stable and no complaint. Currently afebrile. This was discussed yesterday with infectious disease specialist. 12/20/16-no acute event overnight, looking for discharge home within the next 24 hours. Afebrile and denies any chest pain or shortness of breath. 12/21/16-patient seen and examined, no acute event overnight. Stable and afebrile. Case discussed with heel caser regarding discharge disposition today. Objective Vitals Vital Signs Date Time Temp Pulse Resp B/P (MAP) Pulse Ox O2 Delivery O2 Flow Rate FiO2 12/21/16 09:05 Room Air 12/21/16 08:00 98.1 120 18 117/73 (88) 95 12/21/16 04:00 97.8 114 17 106/77 (87) 98 12/21/16 00:00 97.7 109 18 99/65 (76) 97 12/21/16 00:00 Room Air 12/20/16 21:45 Room Air 12/20/16 20:00 97.7 116 20 126/66 (86) 94 12/20/16 18:06 96 12/20/16 16:00 98.3 110 20 107/71 (83) 96 12/20/16 15:55 18 12/20/16 12:00 98.2 111 20 114/78 (90) 94 12/20/16 11:49 98 Room Air I/O 12/20/16 12/20/16 12/20/16 12/21/16 12/21/16 12/21/16 07:00 15:00 23:00 07:00 15:00 23:00 Intake Total 100 ml 960 ml Output Total 680 ml Balance 100 ml 960 ml -680 ml Intake Oral 960 ml IV Total 100 ml Output Urine Total 680 ml # Voids 3 3 # Bowel Movements 1 0 Imaging Last Impressions Chest X-Ray 12/18/16 0000 Signed Impressions: Service Date/Time: Sunday, December 18, 2016 17:43 - CONCLUSION: 1. PICC in satisfactory position. 2. Small right-sided effusion. 3. Improvement in the appearance of the left lung base compared to previous of 12/03/16. Alexander Youssef MD Lumbar Spine MRI 12/07/16 0000 Signed Impressions: Service Date/Time: Wednesday, December 07, 2016 09:15 - CONCLUSION: Negative MRI of the lumbar spine. There is no abnormal contrast enhancement. Michael Youssef MD FACR Cervical Spine MRI 12/07/16 0000 Signed Impressions: Service Date/Time: Wednesday, December 07, 2016 09:15 - CONCLUSION: 1. Stable MRI of the cervical spine with minimal edema interspinous ligament at C6 and C7. 2. Stable hemangioma C7. Michael Youssef MD FACR Brain MRI 12/07/16 0000 Signed Impressions: Service Date/Time: Wednesday, December 07, 2016 09:15 - CONCLUSION: 1 cm focal area of enhancement medina-white matter junction and left proximal region associated with minimal edema. This on the cortical surface of the brain and may well be subacute infarction. Cortical infarctions are usually associated with venous thrombosis however I see no evidence for such. This could be related to an embolic process there but this is the only evidence for such. Michael Youssef MD FACR Thoracentesis Ultrasound 12/03/16 0600 Signed Impressions: Service Date/Time: November 09:59 - CONCLUSION: Uncomplicated ultrasound guided thoracentesis. Zeyad Bryant MD Chest Ultrasound 12/02/16 0000 Signed Impressions: Service Date/Time: Friday, December 02, 2016 14:26 - CONCLUSION: Sizable right pleural effusion. Estimated volume is 600 cc. Alexander Youssef MD Chest CT 12/02/16 0000 Signed Impressions: Service Date/Time: Friday, December 02, 2016 13:06 - CONCLUSION: 1. Interval improvement in diffuse numerous bilateral cavitary pulmonary nodules with near interval resolution of intervening patchy diffuse bilateral airspace consolidations. Findings are compatible with improving diffuse/atypical infection. 2. Small to moderate, right greater than left, simple appearing bilateral pleural effusions. Checo Leon MD Lumbar Puncture Fluoroscopy 11/21/16 0000 Signed Impressions: Service Date/Time: Wednesday, November 23, 2016 15:08 - CONCLUSION: Uncomplicated fluoroscopically guided lumbar puncture with pressures as above. Horace Kirkland MD Thoracic Spine MRI 11/20/16 0000 Signed Impressions: Service Date/Time: Sunday, November 20, 2016 21:36 - CONCLUSION: 1. No focal abnormality within the thoracic spine. 2. There is edema/inflammatory change seen in the soft tissues to the left of the C7 and T1 spinous processes better seen on the cervical spine MRI examination. 3. Cavitary lesions in the lungs. Manolo Anne MD Abdomen/Pelvis CT 11/20/16 0000 Signed Impressions: Service Date/Time: Sunday, November 20, 2016 11:30 - CONCLUSION: Significant aeration appearance of the lungs. Generalized anasarca, negative for abscess. Adults abdominal abscess. Michael Youssef MD FACR Renal Ultrasound 11/15/16 0000 Signed Impressions: Service Date/Time: Tuesday, November 15, 2016 10:26 - CONCLUSION: Normal examination. Katie Nevarez MD Objective Remarks GENERAL: NAD SKIN: Warm and dry. HEAD: Normocephalic. EYES: No scleral icterus. No injection or drainage. NECK: Supple, trachea midline. No JVD or lymphadenopathy. CARDIOVASCULAR: Regular rate and rhythm without murmurs, gallops, or rubs. RESPIRATORY: Breath sounds equal bilaterally. No accessory muscle use. GASTROINTESTINAL: Abdomen soft, non-tender, nondistended. MUSCULOSKELETAL: No cyanosis, or edema. Dressing over left buttocks BACK: Nontender without obvious deformity. No CVA tenderness. Procedures SP VDRF SP LP A/P Problem List: (1) Endocarditis of tricuspid valve ICD Code: I36.8 - Other nonrheumatic tricuspid valve disorders (2) Severe sepsis ICD Code: A41.9 - Sepsis, unspecified organism; R65.20 - Severe sepsis without septic shock Status: Resolved (3) MRSA bacteremia ICD Code: R78.81 - Bacteremia Status: Acute (4) Rectal cancer ICD Code: C20 - Malignant neoplasm of rectum Status: Chronic (5) Acute renal failure ICD Code: N17.9 - Acute kidney failure, unspecified Status: Resolved (6) Pressure ulcer of buttock ICD Code: L89.309 - Pressure ulcer of unspecified buttock, unspecified stage Assessment and Plan 45-year-old man with MRSA Tricuspid Valve infective endocarditis Continue current antibiotics including Cubicin Management per infectious disease specialist He would get outpatient MRI, CT chest and repeat 2-D echo i Septic Shock Resolved Left buttocks pressure ulcer Status post debridement of left buttocks pressure wound on 12/09/16. Appreciate input from plastic surgery who signed off Continue with current wound care Patient's mother has been taught on how to change his dressing Metabolic encephalopathy- resolved Acute hypoxic and hypercarbic respiratory failure-resolved Septic pulmonary emboli Pulmonary Edema-resolved Severe ARDS BETTER-RESOLVED Right pleural effusion s/p thoracentesis on 12/03/16 with 800 cc fluid removal and cytology negative Continue with Aerosol nebs RACHEL Intravascular volume overload Hypernatremia..improving Resolved Nephrology signed off Colon cancer on radiation treatment Hepatitis C THROMBOCYTOPENIA CHRONIC Anemia secondary to chronic illness transfused 3 units PRBC total on 11/22, stool Hemoccult negative Continue to monitor LFTs Physical deconditioning-improving Continue aggressive physical therapy Alejo Barragan MD Dec 21, 2016 10:40
--- NOTE | 2016-12-21 10:41 | HHI.DS ---
Discharge Summary Admission Date Nov 15, 2016 at 09:05 Discharge Date: Dec 21, 2016 Admitting Diagnosis bilateral pneumonia, UTI, severe sepsis, acute kidney injury (1) Endocarditis of tricuspid valve ICD Code: I36.8 - Other nonrheumatic tricuspid valve disorders (2) Severe sepsis ICD Code: A41.9 - Sepsis, unspecified organism; R65.20 - Severe sepsis without septic shock Status: Resolved (3) MRSA bacteremia ICD Code: R78.81 - Bacteremia Status: Acute (4) Rectal cancer ICD Code: C20 - Malignant neoplasm of rectum Status: Chronic (5) Acute renal failure ICD Code: N17.9 - Acute kidney failure, unspecified Status: Resolved (6) Pressure ulcer of buttock ICD Code: L89.309 - Pressure ulcer of unspecified buttock, unspecified stage Procedures SP VDRF SP LP Brief History - From Admission The patient is a 45-year-old male with past medical history of colon cancer on radiation treatment last session on Wednesday and has been on radiation for the past 2-3 months being followed by Dr. Harrell, his oncologist, and Dr. Galvan. He presented to [facility] emergency department with a couple of days history of shortness of breath, pleuritic chest pain with deep inspiration, dry cough and feeling nauseous. The patient denies any exposure to sick contacts. In addition, he denies any prior history of pneumonia or flu. He was found to have a temperature of 101.4 orally in the ER. In addition he was tachycardiac with heart rate of 120s to 130s. Chest x-ray in the ER showed new bilateral mild air space opacities. The patient subsequently had CT scan of the chest which showed multiple new solid and cavitary irregular nodules seen throughout the lungs bilaterally, and small right-sided pleural effusion. His laboratory data is significant for renal failure with a creatinine level of 2.29 and hypokalemia with a potassium level of 2.8. His lactic acid level measured at 1.2. The patient also is thrombocytopenic with a platelet count of 55, however, his INR is 1.2. In the ED he was given three liters of Crystalloid in addition to cefepime, azithromycin, Tylenol and DuoNeb. When seen in the ER he was on room air oxygen with saturation 96%. However, tachycardiac with heart rate of 123 and blood pressure 154/75. He denies any vomiting, abdominal pain. Significant Findings Laboratory Tests Test 12/18/16 18:00 Total Creatine Kinase 31 U/L ([id number]) Imaging Last Impressions Chest X-Ray 12/18/16 0000 Signed Impressions: Service Date/Time: Sunday, December 18, 2016 17:43 - CONCLUSION: 1. PICC in satisfactory position. 2. Small right-sided effusion. 3. Improvement in the appearance of the left lung base compared to previous of 12/03/16. Alexander Youssef MD Lumbar Spine MRI 12/07/16 0000 Signed Impressions: Service Date/Time: Wednesday, December 07, 2016 09:15 - CONCLUSION: Negative MRI of the lumbar spine. There is no abnormal contrast enhancement. Michael Youssef MD FACR Cervical Spine MRI 12/07/16 0000 Signed Impressions: Service Date/Time: Wednesday, December 07, 2016 09:15 - CONCLUSION: 1. Stable MRI of the cervical spine with minimal edema interspinous ligament at C6 and C7. 2. Stable hemangioma C7. Michael Youssef MD FACR Brain MRI 12/07/16 0000 Signed Impressions: Service Date/Time: Wednesday, December 07, 2016 09:15 - CONCLUSION: 1 cm focal area of enhancement medina-white matter junction and left proximal region associated with minimal edema. This on the cortical surface of the brain and may well be subacute infarction. Cortical infarctions are usually associated with venous thrombosis however I see no evidence for such. This could be related to an embolic process there but this is the only evidence for such. Michael Youssef MD FACR Thoracentesis Ultrasound 12/03/16 0600 Signed Impressions: Service Date/Time: November 09:59 - CONCLUSION: Uncomplicated ultrasound guided thoracentesis. Zeyad Bryant MD Chest Ultrasound 12/02/16 0000 Signed Impressions: Service Date/Time: Friday, December 02, 2016 14:26 - CONCLUSION: Sizable right pleural effusion. Estimated volume is 600 cc. Alexander Youssef MD Chest CT 12/02/16 0000 Signed Impressions: Service Date/Time: Friday, December 02, 2016 13:06 - CONCLUSION: 1. Interval improvement in diffuse numerous bilateral cavitary pulmonary nodules with near interval resolution of intervening patchy diffuse bilateral airspace consolidations. Findings are compatible with improving diffuse/atypical infection. 2. Small to moderate, right greater than left, simple appearing bilateral pleural effusions. Checo Leon MD Lumbar Puncture Fluoroscopy 11/21/16 0000 Signed Impressions: Service Date/Time: Wednesday, November 23, 2016 15:08 - CONCLUSION: Uncomplicated fluoroscopically guided lumbar puncture with pressures as above. Horace Kirkland MD Thoracic Spine MRI 11/20/16 0000 Signed Impressions: Service Date/Time: Sunday, November 20, 2016 21:36 - CONCLUSION: 1. No focal abnormality within the thoracic spine. 2. There is edema/inflammatory change seen in the soft tissues to the left of the C7 and T1 spinous processes better seen on the cervical spine MRI examination. 3. Cavitary lesions in the lungs. Manolo Anne MD Abdomen/Pelvis CT 11/20/16 0000 Signed Impressions: Service Date/Time: Sunday, November 20, 2016 11:30 - CONCLUSION: Significant aeration appearance of the lungs. Generalized anasarca, negative for abscess. Adults abdominal abscess. Michael Youssef MD FACR Renal Ultrasound 11/15/16 0000 Signed Impressions: Service Date/Time: Tuesday, November 15, 2016 10:26 - CONCLUSION: Normal examination. Katie Nevarez MD PE at Discharge GENERAL: NAD SKIN: Warm and dry. HEAD: Normocephalic. EYES: No scleral icterus. No injection or drainage. NECK: Supple, trachea midline. No JVD or lymphadenopathy. CARDIOVASCULAR: Regular rate and rhythm without murmurs, gallops, or rubs. RESPIRATORY: Breath sounds equal bilaterally. No accessory muscle use. GASTROINTESTINAL: Abdomen soft, non-tender, nondistended. MUSCULOSKELETAL: No cyanosis, or edema. Dressing over left buttocks BACK: Nontender without obvious deformity. No CVA tenderness. Hospital Course MRSA Tricuspid Valve infective endocarditis Continue current antibiotics including Cubicin Management per infectious disease specialist He would get outpatient MRI, CT chest and repeat 2-D echo i Septic Shock Resolved Left buttocks pressure ulcer Status post debridement of left buttocks pressure wound on 12/09/16. Appreciate input from plastic surgery who signed off Continue with current wound care Patient's mother has been taught on how to change his dressing Metabolic encephalopathy- resolved Acute hypoxic and hypercarbic respiratory failure-resolved Septic pulmonary emboli Pulmonary Edema-resolved Severe ARDS BETTER-RESOLVED Right pleural effusion s/p thoracentesis on 12/03/16 with 800 cc fluid removal and cytology negative Continue with Aerosol nebs RACHEL Intravascular volume overload Hypernatremia..improving Resolved Nephrology signed off Colon cancer on radiation treatment Hepatitis C THROMBOCYTOPENIA CHRONIC Anemia secondary to chronic illness transfused 3 units PRBC total on 11/22, stool Hemoccult negative Continue to monitor LFTs Physical deconditioning-improving Continue aggressive physical therapy Pt Condition on Discharge: Stable Discharge Disposition: Discharge Home Discharge Time: > 30 minutes Discharge Instructions DIET: Follow Instructions for: Heart Healthy Diet Speech Therapy-Diet Recommends: Mechanical Soft Activities you can perform: Regular-No Restrictions Follow up Referrals: PCP Follow-up - 1 Week New Medications: Daptomycin Inj (Cubicin Inj) 500 Mg Bag 590 MG IV Q24H for Infection for 21 Days, BAG 0 Refills Must dilute in appropriate IV Fluid prior to administration Epinephrine Inj (Epinephrine Inj) 1 Mg/Ml (1 Ml) Inj 0.3 MG IV PUSH ONCE PRN for ALLERGIC REACTION, #1 VIAL Epinephrine Inj (Epinephrine Inj) 1 Mg/Ml (1 Ml) Inj 0.3 MG SQ ONCE PRN for ALLERGIC REACTION, #1 VIAL Give with any signs of respiratory distress. Hydrocortisone Inj (Solu-Cortef Inj) 250 Mg/2 Ml Inj 250 MG IV PUSH ONCE PRN for ALLERGIC REACTION, #1 VIAL 0 Refills Give over 30-60 seconds. Sennosides-Docusate Sodium (Marina-Colace) 8.6-50 Mg Tab 1 TAB PO BID for Constipation, #20 TAB 0 Refills Collagenase (Santyl) 250 Unit/Gram Oin 1 APPLIC TOPICAL DAILY for Infection, #1 TUBE Hydrocodone-Acetaminophen (Hydrocodone-Acetaminophen) 10-325 mg Tab 1 TAB PO Q4H PRN for PAIN SCALE 4 TO 10, #20 TAB Continued Medications: Oxycodone-Acetaminophen (Percocet) 5-325 mg Tab 1 TAB PO Q4H PRN for PAIN, TAB 0 Refills [nausea medication] () Alejo Barragan MD Dec 21, 2016 10:41
[2016-12-21] MEDS ORDERED: PERI8.6T PO (10:43)
[2016-12-21] MEDS ORDERED: HYDR-3583 PO (10:43)
[2016-12-21] MEDS ORDERED: COLL30T TOPICAL (10:43)
[2016-12-21 12:00] VITALS: BP 120/64; PULSE 119; RESP 18; TEMP 98.8; O2SAT 96
[2016-12-21] MEDS: SODIUM CHLORIDE 0.9% IV SCH (12:25)
[2016-12-21] MEDS: DAPTOMYCIN IV SCH (12:25)
--- NOTE | 2016-12-21 14:02 | HHI.IDPN ---
Subjective Subjective Remarks is a patient with rectal cancer who underwent Chemo and radiation prior to admission. He was diagnosed with TV endocarditis, Severe TR and Cerebritis secondary to septic emboli and septic pulm emboli. Overnight events reviewed. pt is afebrile ambulating No rash No diarrhea Antibiotics Dapto IV Lines Line sites with no e.o infection. Past Medical History reviewed. Allergies: Coded Allergies: No Known Allergies (Unverified , 11/15/16) Objective . Vital Signs Date Time Temp Pulse Resp B/P (MAP) Pulse Ox O2 Delivery O2 Flow Rate FiO2 12/21/16 12:00 98.8 119 18 120/64 (82) 96 12/21/16 09:05 Room Air 12/21/16 08:00 98.1 120 18 117/73 (88) 95 12/21/16 04:00 97.8 114 17 106/77 (87) 98 12/21/16 00:00 97.7 109 18 99/65 (76) 97 12/21/16 00:00 Room Air 12/20/16 21:45 Room Air 12/20/16 20:00 97.7 116 20 126/66 (86) 94 12/20/16 18:06 96 12/20/16 16:00 98.3 110 20 107/71 (83) 96 12/20/16 15:55 18 Imaging Last Impressions Thoracentesis Ultrasound 12/03/16 0600 Signed Impressions: Service Date/Time: November 09:59 - CONCLUSION: Uncomplicated ultrasound guided thoracentesis. Zeyad Bryant MD Chest X-Ray 12/03/16 0000 Signed Impressions: Service Date/Time: November 10:30 - CONCLUSION: 1. No pneumothorax status-post right thoracentesis. 2. Stable scattered pulmonary nodules bilaterally. Zeyad Bryant MD Chest Ultrasound 12/02/16 0000 Signed Impressions: Service Date/Time: Friday, December 02, 2016 14:26 - CONCLUSION: Sizable right pleural effusion. Estimated volume is 600 cc. Alexander Youssef MD Chest CT 12/02/16 0000 Signed Impressions: Service Date/Time: Friday, December 02, 2016 13:06 - CONCLUSION: 1. Interval improvement in diffuse numerous bilateral cavitary pulmonary nodules with near interval resolution of intervening patchy diffuse bilateral airspace consolidations. Findings are compatible with improving diffuse/atypical infection. 2. Small to moderate, right greater than left, simple appearing bilateral pleural effusions. Checo Leon MD Lumbar Puncture Fluoroscopy 11/21/16 Signed Impressions: Service Date/Time: Wednesday, November 23, 2016 15:08 - CONCLUSION: Uncomplicated fluoroscopically guided lumbar puncture with pressures as above. Horace Kirkland MD Thoracic Spine MRI 11/20/16 Signed Impressions: Service Date/Time: Sunday, November 20, 2016 21:36 - CONCLUSION: 1. No focal abnormality within the thoracic spine. 2. There is edema/inflammatory change seen in the soft tissues to the left of the C7 and T1 spinous processes better seen on the cervical spine MRI examination. 3. Cavitary lesions in the lungs. Manolo Anne MD Lumbar Spine MRI 11/20/16 Signed Impressions: Service Date/Time: Sunday, November 20, 2016 21:36 - CONCLUSION: 1. No areas of significant stenosis. The disc spaces are preserved. 2. Mild facet hypertrophy at the L3-L4 and L4-L5 old. 3. Nonspecific areas of edema within the soft tissues adjacent to the spinous processes throughout the lumbar spine. This can be seen secondary to some dependent edema. Inflammatory change cannot be excluded. It does appear fairly symmetric when comparing right to left. 4. Ascites. Manolo Anne MD Cervical Spine MRI 11/20/16 Signed Impressions: Service Date/Time: Sunday, November 20, 2016 21:36 - CONCLUSION: 1. 2.4 cm vague area of edema seen to the left of the spinous processes of C7 and T1 concerning for focal inflammatory/infectious change. The spinous processes themselves demonstrate normal signal. 2. Suspected hemangioma at the C7 vertebral body. 3. Fluid in the nasopharynx, oropharynx and hypopharynx. There is an NG tube and ET tube in place. Manolo Anne MD Brain MRI 11/20/16 Signed Impressions: Service Date/Time: Sunday, November 20, 2016 21:36 - CONCLUSION: 1. Abnormal gyriform signal abnormality in the left frontal and parietal regions associated with some minimally increased signal on the diffusion weighted images. Findings are nonspecific. Differential diagnosis includes an area of meningitis or leptomeningeal spread of tumor given history of malignancy. Infarction less likely. No associated mass effect. Recommend further evaluation with MRI brain with contrast to assess for abnormal meningeal enhancement. Bruno Cleaning MD Abdomen/Pelvis CT 11/20/16 0000 Signed Impressions: Service Date/Time: Sunday, November 20, 2016 11:30 - CONCLUSION: Significant aeration appearance of the lungs. Generalized anasarca, negative for abscess. Adults abdominal abscess. Michael Youssef MD FACR Renal Ultrasound 11/15/16 0000 Signed Impressions: Service Date/Time: Tuesday, November 15, 2016 10:26 - CONCLUSION: Normal examination. Katie Nevarez MD Physical Exam GENERAL: awake, alert comfortable comfortable SKIN: No rashes, ecchymoses or lesions. HEAD: Atraumatic. Normocephalic. No temporal or scalp tenderness. EYES: Pupils equal round and reactive. Extraocular motions intact. No scleral icterus. No injection or drainage. CARDIOVASCULAR: Tachycardic, no rub RESPIRATORY: fairly clear to auscultation GASTROINTESTINAL: Abdomen soft, non-tender, nondistended. MUSCULOSKELETAL: Extremities without clubbing, cyanosis, or edema. NEUROLOGICAL: awake alert non focal Psych could not be assessed. IV line sites with no evidence of infection. Assessment & Plan Remarks Septic Shock with MODS (fever, tachy, low BP, bandemia, source: lung, endocarditis) on admission. - sepsis clinically resolved TV endocarditis with severe TR. - resolved bacteremia - persistent mobile TV mobile veg as of 12/03 Abnormal MRI brain, ?septic emboli likely meningitis/cerebritis (partially treated at this point) Lung lesions: septic emboli most likely. Other differentials include cancer related mets. Very less likely to be fungal or TB. sp thoarcaocenthesis of hemorragic effusion, clx so far negative Acute renal failure: prerenal, sepsis. Acute metabolic encephalopathy: sepsis, less likely to be meningitis. Hyponatremia: Infection, metabolic, meningitis Hepatitis C positive. Rectal ca sp neoadjuvant XRT, chemo New fever, low grade: afebrile for 2 days Recommendations: Continue Daptomycin IV (Re: Worsening clinically, resp distress, back pain, neck pain ? further dissemination). Daily infusion orders in chart. Plan on repeat Imaging MRI Brain/C-spine. Repeat 2D ECHO. Scripts in chart. Will sign off please call back if any change in clinical condition or questions. Lucille Lizama MD Dec 21, 2016 14:02
== END 2016-12-21 14:31 | disposition home or self-care (01) | DRG 853 ==
LOC: NEPE 07:07 → NEDA 09:05 → HIMW 10:45 → N04A 11-26 10:53
PROVIDERS: ADMIT Internal Medicine Critical Care Medicine; ATTEND Hospitalist
PROC: 5A1955Z Respiratory Ventilation, Greater than 96 Consecutive Hours (ICD-10-PCS; principal; 2016-11-18)
PROC: 0BH18EZ Insertion of Endotracheal Airway into Trachea, Via Natural or Artificial Opening Endoscopic (ICD-10-PCS; 2016-11-18)
PROC: 02HV33Z Insertion of Infusion Device into Superior Vena Cava, Percutaneous Approach (ICD-10-PCS; 2016-11-18)
PROC: 009U3ZX Drainage of Spinal Canal, Percutaneous Approach, Diagnostic (ICD-10-PCS; 2016-11-23)
PROC: 0W993ZX Drainage of Right Pleural Cavity, Percutaneous Approach, Diagnostic (ICD-10-PCS; 2016-12-03)
PROC: 0JB90ZZ Excision of Buttock Subcutaneous Tissue and Fascia, Open Approach (ICD-10-PCS; 2016-12-09)
PROC: 02HV33Z Insertion of Infusion Device into Superior Vena Cava, Percutaneous Approach (ICD-10-PCS; 2016-12-18)
DX: A41.02 Sepsis due to Methicillin resistant Staphylococcus aureus (principal); I26.90 Septic pulmonary embolism without acute cor pulmonale; I33.0 Acute and subacute infective endocarditis; R65.21 Severe sepsis with septic shock; G93.41 Metabolic encephalopathy; J96.01 Acute respiratory failure with hypoxia; J96.02 Acute respiratory failure with hypercapnia; J90 Pleural effusion, not elsewhere classified; G04.81 Other encephalitis and encephalomyelitis; J80 Acute respiratory distress syndrome; J15.212 Pneumonia due to Methicillin resistant Staphylococcus aureus; G03.8 Meningitis due to other specified causes; I76 Septic arterial embolism; E87.2 Acidosis; C20 Malignant neoplasm of rectum; E87.0 Hyperosmolality and hypernatremia; E44.0 Moderate protein-calorie malnutrition; N17.9 Acute kidney failure, unspecified; N39.0 Urinary tract infection, site not specified; E87.1 Hypo-osmolality and hyponatremia; L89.323 Pressure ulcer of left buttock, stage 3; D69.59 Other secondary thrombocytopenia; E87.70 Fluid overload, unspecified; D63.8 Anemia in other chronic diseases classified elsewhere; B95.62 Methicillin resistant Staphylococcus aureus infection as the cause of diseases classified elsewhere; E87.6 Hypokalemia; R73.9 Hyperglycemia, unspecified; Z68.20 Body mass index [BMI] 20.0-20.9, adult; R19.7 Diarrhea, unspecified; I50.9 Heart failure, unspecified; B19.20 Unspecified viral hepatitis C without hepatic coma; F14.10 Cocaine abuse, uncomplicated; F11.10 Opioid abuse, uncomplicated; R53.1 Weakness; Z91.19 Patient's noncompliance with other medical treatment and regimen; Z87.891 Personal history of nicotine dependence; Z92.3 Personal history of irradiation; Z92.21 Personal history of antineoplastic chemotherapy
CPT/HCPCS: 31500; 32555; 36430; 36556; 36569; 36600; 62270; 70551; 70553; 71010; 71250; 71260; 72141; 72146; 72148; 72156; 72158; 74176; 76604; 76775; 76937; 77003; 80048; 80053; 80074; 80076; 80202; 80307; 81001; 82150; 82272; 82378; 82550; 82552; 82805; 82945; 82948; 83010; 83036; 83540; 83550; 83605; 83615; 83690; 83735; 83986; 84100; 84132; 84155; 84157; 84439; 84443; 84484; 85007; 85014; 85018; 85025; 85027; 85044; 85384; 85610; 85730; 86140; 86160; 86403; 86592; 86618; 86703; 86850; 86900; 86901; 86920; 87015; 87040; 87070; 87086; 87102; 87116; 87147; 87186; 87205; 87206; 87449; 87493; 87497; 87529; 87641; 87804; 89051; 93005; 93306; 93308; 94003; 94150; 94640; 94664; 95819; 96365; 96375; A9579; C1729; C9113; J0133; J0171; J0330; J0456; J0610; J0692; J0712; J0878; J1120; J1170; J1205; J1580; J1642; J2250; J2270; J2370; J2405; J2543; J2930; J3010; J3370; J3480; J7030; J7050; J7070; J7644; P9016; Q9967

== ENCOUNTER → 2017-01-04 | Outpatient (CLI) | payer OTHER ==
[~2017-01-04] MED LIST: COLL30T TOPICAL; DAPT500P IV; EPIN1INJ21 IV PUSH; EPIN1INJ21 SQ; HYDR-3583 PO; IOHEXOL 350 MG/ML 10 ML VIAL (for RAD DIAG) IVCONTRAST ONE; PERC5TAB12 PO; PERI8.6T PO; SOLU250I IV PUSH; [UNRECOGNIZED DRUG - OTHER]
--- NOTE | 2017-01-04 12:25 | RADRPT ---
EXAM DATE/TIME: 01/04/2017 10:42 [facility] COMPARISON: CT THORAX W CONTRAST, December 02, 2016, 13:06. INDICATIONS : Evaluate for septic emboli, dyspnea IV CONTRAST: 71 cc Omnipaque 350 (iohexol) IV RADIATION DOSE: 5.1 CTDIvol (mGy) MEDICAL HISTORY : None SURGICAL HISTORY : None. ENCOUNTER: Initial ACUITY: 1 week PAIN SCALE: 0/10 LOCATION: chest TECHNIQUE: Volumetric scanning of the chest was performed. Using automated exposure control and adjustment of t he mA and/or kV according to patient size, radiation dose was kept as low as reasonably achievable to obtain optimal diagnostic quality images. DICOM format image data is available electronically for review and comparison. Follow-up recommendations for detected pulmonary nodules are based at a minimum on nodule size and pa tient risk factors according to Fleischner Society Guidelines. FINDINGS: Interval improvement with less cavitating areas of airspace disease evident. Pleural effusions have d ecreased in size. There is no evidence for central pulmonary emboli. There is no axillary or mediasti nal adenopathy. Liver and spleen are free of focal defects. CONCLUSION: Significant improvement with less cavitating airspace disease and pleural effusions. Minimal airspace disease remains in the left base and right upper lobe. Michael Youssef MD FACR on January 04, 2017 at 12:21 Board Certified Radiologist. This report was verified electronically.
[2017-01-04 12:51] LABS: AUTOMATED NEUTROPHIL # 5.4 TH/MM3 (1.8-7.7); BASOPHIL % 0.5 % (0.0-2.0); EOSINOPHIL # 0.2 TH/MM3 (0-0.4); HEMATOCRIT 34.1 % (39.0-51.0); HEMO FLAGS DIFF FINAL; LYMPH % 17.7 % (9.0-44.0); LYMPHOCYTE # 1.3 TH/MM3 (1.0-4.8); MEAN CORPUSCULAR HEMOGLOBIN 24.5 PG (27.0-34.0); MEAN CORPUSCULAR HGB CONC 31.8 % (32.0-36.0); NEUT % 71.8 % (16.0-70.0); PLATELET COUNT 201 TH/MM3 (150-450); RED BLOOD COUNT 4.42 MIL/MM3 (4.50-5.90); RED CELL DISTRIBUTION WIDTH 17.8 % (11.6-17.2); WHITE BLOOD COUNT 7.5 TH/MM3 (4.0-11.0)
[2017-01-04 13:26] LABS: INDIRECT BILIRUBIN 0.5 MG/DL (0.0-0.8); TOTAL BILIRUBIN ADULT 0.7 MG/DL (0.2-1.0)
--- NOTE | 2017-01-04 14:06 | ECHRPT ---
Indication: ENDOCARDITIS CONCLUSIONS The left ventricular systolic function is severely reduced with an estimated ejection fraction in th e range of 40%. Normal left ventricular size. Wall thickness is normal. There is global left ventricular dysfunction. The right ventricle is moderately dilated. There is moderate tricuspid valve regurgitation. There is an mobile echogenic structure in the tricuspid valve consistent with a vegetation. The estimated pulmonary arterial pressure is 38.1 mmHg. BP: / HR: Rhythm: Sinus MEASUREMENTS (Male / Female) Normal Values Technical Quality:Fair 2D ECHO LV Diastolic Diameter PLAX 3.4 cm 4.2 - 5.9 / 3.9 - 5.3 cm LV Systolic Diameter PLAX 2.8 cm IVS Diastolic Thickness 1.3 cm 0.6 - 1.0 / 0.6 - 0.9 cm LVPW Diastolic Thickness 1.3 cm 0.6 - 1.0 / 0.6 - 0.9 cm LV Relative Wall Thickness 0.7 LVOT Diameter 2.1 cm LA Systolic Diameter LX 3.4 cm 3.0 - 4.0 / 2.7 - 3.8 cm LV Ejection Fraction MOD 4C 24.1 % LV Ejection Fraction 4C AL 27.8 % M-MODE Aortic Root Diameter MM 2.2 cm AV Cusp Separation MM 1.8 cm DOPPLER AV Peak Velocity 92.3 cm/s AV Peak Gradient 3.4 mmHg LVOT Peak Velocity 87.4 cm/s LVOT Peak Gradient 3.1 mmHg AV Area Cont Eq pk 3.3 cm MV Area PHT 7.1 cm Mitral E Point Velocity 65.2 cm/s Mitral A Point Velocity 52.8 cm/s Mitral E to A Ratio 1.2 LV E' Lateral Velocity 13.6 cm/s Mitral E to LV E' Lateral Ratio 4.8 LV E' Septal Velocity 7.2 cm/s Mitral E to LV E' Septal Ratio 9.0 TR Peak Velocity 265.0 cm/s TR Peak Gradient 28.1 mmHg Right Atrial Pressure 10.0 mmHg Pulmonary Artery Systolic Pressu 38.1 mmHg Right Ventricular Systolic Press 38.1 mmHg PV Peak Velocity 73.3 cm/s PV Peak Gradient 2.1 mmHg FINDINGS LEFT VENTRICLE The left ventricular systolic function is severely reduced with an estimated ejection fraction in th e range of 30-35%. Normal left ventricular size. Wall thickness is normal. There is global left ventricular dysfunction. RIGHT VENTRICLE The right ventricle is moderately dilated. LEFT ATRIUM The left atrial size is normal. RIGHT ATRIUM The right atrial size is normal. ATRIAL SEPTUM Normal atrial septal thickness without atrial level shunting by limited color doppler interrogation. AORTA The aortic root and proximal ascending aorta are normal in size on limited imaging. MITRAL VALVE Structurally normal mitral valve. No mitral valve stenosis or regurgitation. AORTIC VALVE Trileaflet aortic valve. No aortic valve stenosis or regurgitation. TRICUSPID VALVE There is mild tricuspid valve regurgitation. The estimated pulmonary arterial pressure is 38.1 mmHg. Findings consistent with vegetation on the tricuspid valve. PULMONARY VALVE No pulmonary valve regurgitation or stenosis. VESSELS The inferior vena cava is normal in size. PERICARDIUM No pericardial effusion. Darrell Farnsworth MD (Electronically Signed) Final Date:04 January 2017 14:05
--- NOTE | 2017-01-05 13:23 | HHI.PR ---
Addendum to Inpatient Note Addendum Reason: Additional Documentation Additional Information Received a call from ECHO dept patient still has persistent vegetations. Patient otherwise ok and following in infusion clinic for Dapto infusions: tolerating well. Labs reviewed. CRP now normal. rest labs including CK ok too. d/w Dr.Ruby Harrell: recommends referral to . d.w office pt needs follow up for multiple issues: 1. Cardiothoracic surgery to assess if surgical candidate pt has been clean and showed remorse. Good family support. Due to severe TR and large mobile ECHO vegetation will refer to Dr.Sohit Bagley. 2. : patient has rectal cancer that eventually needs surgery. and Cardiology to decide timing. 3. Dr. Vielka Harrell oncology for determination of chemotherapy and radiotherapy needs. 4. office 5. Referral to wound care clinic to follow up on sacral decub as needed. I attempted to call the patients mother and also the numbers listed in [employer] multiple times and left message to call me through the [facility] call center(no left on voice message). I got in touch with Case Management as patient is [facility] and will need appointments set up through that program. From ID standpoint pt will be finishing IV therapy soon. Lucille Lizama MD Jan 05, 2017 13:23
== END ==
LOC: HECH 08:49
PROVIDERS: ATTEND Internal Medicine Infectious Disease
DX: R06.00 Dyspnea, unspecified (principal); I76 Septic arterial embolism
CPT/HCPCS: 71260; 80076; 82550; 82565; 85025; 86140; 93306; Q9967

== ENCOUNTER → 2017-02-09 | Outpatient (CLI) | payer OTHER ==
[~2017-02-09] MED LIST changes: +AUGM875T3 PO; -COLL30T TOPICAL; -DAPT500P IV; -EPIN1INJ21 IV PUSH; -EPIN1INJ21 SQ; +HYDR-3516 PO; -HYDR-3583 PO; -IOHEXOL 350 MG/ML 10 ML VIAL (for RAD DIAG) IVCONTRAST ONE; -PERC5TAB12 PO; -PERI8.6T PO; -SOLU250I IV PUSH; -[UNRECOGNIZED DRUG - OTHER]
[2017-02-09 11:37] LABS: AUTOMATED NEUTROPHIL # 5.4 TH/MM3 (1.8-7.7); BASOPHIL % 0.6 % (0.0-2.0); EOSINOPHIL # 0.2 TH/MM3 (0-0.4); EOSINOPHIL % 2.7 % (0.0-4.0); HEMATOCRIT 45.4 % (39.0-51.0); HEMO FLAGS DIFF FINAL; LYMPH % 10.7 % (9.0-44.0); LYMPHOCYTE # 0.7 TH/MM3 (1.0-4.8); MEAN CELL VOLUME 79.3 FL (80.0-100.0); MEAN CORPUSCULAR HEMOGLOBIN 25.9 PG (27.0-34.0); MEAN CORPUSCULAR HGB CONC 32.6 % (32.0-36.0); MONO % 6.6 % (0.0-8.0); NEUT % 79.4 % (16.0-70.0); PLATELET COUNT 135 TH/MM3 (150-450); RED BLOOD COUNT 5.72 MIL/MM3 (4.50-5.90); RED CELL DISTRIBUTION WIDTH 18.6 % (11.6-17.2); WHITE BLOOD COUNT 6.8 TH/MM3 (4.0-11.0)
[2017-02-09 11:38] LABS: BLOOD, URINE MOD (NEG); COMMENT (UR) CULT NOT INDICATED; CULTURE IF INDICATED CULT NOT INDICATED; GLUCOSE,URINE NEG (NEG); KETONE, URINE NEG (NEG); MUCUS URINE FEW /lpf (OCC); NITRITE,URINE NEG (NEG); SQUAMOUS EPITHELIAL CELL URINE <1 /hpf (0-5); URINE COLOR YELLOW (YELLW/STRAW)
--- NOTE | 2017-02-09 12:05 | RADRPT ---
EXAM DATE/TIME: 02/09/2017 11:47 [facility] COMPARISON: CHEST SINGLE AP, December 18, 2016, 17:43. INDICATIONS : Evaluate for pneumonia,pneumothorax and communicable diseases. Pre-op Exploratory laparotomy MEDICAL HISTORY : Carcinoma, colon. SURGICAL HISTORY : None. ENCOUNTER: Initial ACUITY: 1 day PAIN SCORE: 0/10 LOCATION: chest FINDINGS: PA and lateral views of the chest demonstrate the lungs to be symmetrically aerated without evidence of mass, infiltrate or effusion. The cardiomediastinal contours are unremarkable. Osseous structure s are intact. CONCLUSION: Normal examination. Darius Cortez MD on February 09, 2017 at 12:03 Board Certified Radiologist. This report was verified electronically.
[2017-02-09 12:08] LABS: APTT (PATIENT) 25.8 SEC (24.3-30.1); PROTHROMBIN TIME - PATIENT 11.2 SEC (9.8-11.6)
[2017-02-09 12:09] LABS: ANION GAP 8 MEQ/L (5-15); AST (GOT) 38 U/L (15-37); BICARBONATE 26.5 MEQ/L (21.0-32.0); BLOOD UREA NITROGEN 13 MG/DL (7-18); CHLORIDE 107 MEQ/L (98-107); GLOMERULAR FILTRATION RATE 87 ML/MIN (>89); GLUCOSE,FASTING 87 MG/DL (74-99); POTASSIUM 4.2 MEQ/L (3.5-5.1); SODIUM (NA) 141 MEQ/L (136-145)
[2017-02-09 12:10] LABS: ALT (GPT) 59 U/L (12-78)
[2017-02-09 12:12] LABS: ALKALINE PHOSPHATASE 81 U/L (45-117); TOTAL BILIRUBIN ADULT 0.7 MG/DL (0.2-1.0)
== END ==
LOC: CPRE 10:54
PROVIDERS: ATTEND Colon & Rectal Surgery
DX: Z01.812 Encounter for preprocedural laboratory examination (principal); Z01.811 Encounter for preprocedural respiratory examination; C20 Malignant neoplasm of rectum
CPT/HCPCS: 36415; 71020; 80053; 81001; 82378; 85025; 85610; 85730

== ENCOUNTER 2017-02-16 11:54 | Inpatient (IN) | payer OTHER ==
[2017-02-16] VITALS (7 sets, daily range): BP systolic 140–144; BP diastolic 97–102; PULSE 85–95; RESP 18; TEMP 97.5–98.5; O2SAT 92–97
[~2017-02-16] VITALS: Ht 172.7 cm; Wt 62.0 kg
[~2017-02-16 11:54] MED LIST changes: -HYDR-3516 PO
[2017-02-16] MEDS ORDERED: LIDOCAINE HCL 1% PF 5 ML SYRINGE OTHER ONE (12:00)
[2017-02-16] MEDS ORDERED: PHENYLEPH/NS 1000 MCG/10 ML SYR IV ONE (12:00)
[2017-02-16] MEDS ORDERED: PROPOFOL 200 MG/20 ML AMP IV ONE (12:00)
[2017-02-16] MEDS ORDERED: LABETALOL HCL 100 MG/20 ML VIAL IV ONE (12:00)
[2017-02-16] MEDS ORDERED: ONDANSETRON HCL 4 MG/2 ML VIAL IV PUSH ONE (12:00)
[2017-02-16] MEDS ORDERED: ROCURONIUM INJ 50 MG/5 ML SYRINGE IV PUSH ONE (12:00)
[2017-02-16] MEDS ORDERED: NORMOSOL R INJ 2,000 ML IV ONE (12:00)
[2017-02-16] MEDS ORDERED: MIDAZOLAM HCL 2 MG/2 ML VIAL IV ONE (12:00)
[2017-02-16] MEDS ORDERED: DEXAMETHASONE SOD PHOS 4 MG/ML VIAL IV ONE (12:00)
[2017-02-16] MEDS ORDERED: SODIUM CHLORID 0.9% 500 ML INJ 500 ML IV ONE (12:00)
[2017-02-16] MEDS ORDERED: BUPIVACAINE HCL PF 0.5% 30 ML VIAL ONE (12:09)
[2017-02-16] MEDS ORDERED: METRONIDAZOLE 500 MG/100 ML ISONTONIC SOLN IV SCH (12:30)
[2017-02-16] MEDS ORDERED: ceFAZolin 1,000 MG/NS 100 ML IV SCH ×2 (12:30)
[2017-02-16] MEDS ORDERED: DEXT 5%-NACL 0.9% 1000 ML INJ 1,000 ML IV SCH (12:30)
[2017-02-16] MEDS ORDERED: CHLORHEXIDINE GLUCONATE 2 % 1 PACK (2 CLOTHS) TOPICAL PRN (12:30)
[2017-02-16] MEDS ORDERED: ALVIMOPAN 12 MG CAPSULE - On Call PO SCH (12:30)
[2017-02-16] MEDS ORDERED: LACTATED RINGER'S 1000 ML IV PRN (12:30)
[2017-02-16] MEDS ORDERED: METOPROLOL TARTRATE 25 MG TAB PO PRN (12:30)
[2017-02-16] MEDS ORDERED: SODIUM CHLORID 0.9% 500 ML IV PRN (12:30)
[2017-02-16] MEDS ORDERED: POVIDONE IODINE 5% (ANTISEPSIS KIT) 4 APPLICATIONS EACH NARE PRN (12:30)
--- NOTE | 2017-02-16 13:21 | PD.HP.UP ---
H&P Update Note The Pre-Admit History and Physical Examination regarding the above named patient was reviewed (including, but not limited to, vital signs, heart, lungs, co-morbid conditions), and upon re-examination it is noted that: the patient's condition has not significantly changed since the last examination. Daniel Galvan MD Feb 16, 2017 13:21
[2017-02-16] MEDS ORDERED: HYDROmorphone HCL PF 2 MG/ML VIAL ONE (13:34)
[2017-02-16] MEDS ORDERED: ACETAMINOPHEN 1000 MG/100 ML 100 ML IV ONE (13:34)
[2017-02-16] MEDS ORDERED: SUGAMMADEX SODIUM 200 MG/2 ML VIAL IV PUSH ONE ×2 (13:34)
--- NOTE | 2017-02-16 14:42 | EKG ---
Date Performed: 02/16/2017 Time Performed: 13:10:44 PTAGE: 46 years EKG: Sinus rhythm NORMAL ECG Compared to prior electrocardiogram, rate has decreased PREVIOUS TRACING : 11/15/2016 07.23 DOCTOR: Tylor Thurston Interpretating Date/Time 02/16/2017 14:39:55
--- NOTE | 2017-02-16 15:00 | PD.OP ---
Operative Report Date of Surgery: Feb 16, 2017 Preoperative Diagnosis: (1) Rectal cancer Postoperative Diagnosis: (1) Rectal cancer Procedure: Urologic surgery procedures: Cystoscopy and placement of bilateral ureteral catheters Anesthesia: General Surgeon: Kamran Gonzalez Power Distribution Engineer(s): None Operation and Findings: Indication for urologic procedures: Consult intraoperatively to pass bilateral ureteral catheters to aid in visualization of this patient's ureters during his colorectal procedure. Urologic surgery procedures in detail: Concurrent with the colorectal surgeons, I proceeded with cystoscopy and placement of bilateral ureteral catheters as follows: Initially cystoscopic evaluation was performed utilizing the rigid cystoscope with the 30 lens and 22 Burmese sheath. The urethra was patent without stricture formation. The prostatic urethra was nonobstructing. Further passes of the cystoscope within the urinary bladder revealed both right and left ureteral orifices to be in correct anatomic position effluxing clear yellow urine. There were no bladder mucosal lesions, calculi or diverticula formation. There was no evidence of any tumor formation noted. I then proceeded with passing a sensor 0.035 wire up the patient's left ureter until a small amount of resistance was met. A 6 Burmese open-ended catheter was then placed over the wire 25 cm in a cephalad direction. Once the catheter was in place, the wire was withdrawn and reduce to a secondary site via cystoscope. In similar fashion the contralateral side was accomplished. With both catheters in place the cystoscope and wire were withdrawn and a 16 Burmese 10 cc Ricketts catheter was placed. Both ureteral catheters were anchored to the Ricketts by a connector and all 3 catheters placed to gravity drainage. This completes the urologic surgery portion of combined procedures on this patient. Kamran Gonzalez MD Feb 16, 2017 15:00
[2017-02-16] MEDS ORDERED: DO NOT ADM ANY ANTICOAGULANT DRUGS PRN (16:35)
[2017-02-16] MEDS ORDERED: *morphine SULFATE 8 MG/ML PERIprocedure ONLY ONE ×2 (16:41→17:14)
[2017-02-16] MEDS ORDERED: POTASSIUM CHLOR 40 MEQ PREMIX 100 ML IV PRN (16:45)
[2017-02-16] MEDS ORDERED: SODIUM CHLORIDE 0.9% FLUSH 5 ML FLUSH IVF PRN (16:45)
[2017-02-16] MEDS ORDERED: BENZOCAINE 6 MG/MENTHOL 10 MG LOZENGE BUCCAL PRN (16:45)
[2017-02-16] MEDS ORDERED: ENALAPRILAT 2.5 MG/2 ML VIAL IV PUSH PRN (16:45)
[2017-02-16] MEDS ORDERED: ONDANSETRON HCL 4 MG/2 ML VIAL IV PUSH PRN (16:45)
[2017-02-16] MEDS ORDERED: ACETAMINOPHEN/HYDROcodone 325 MG/5 MG TAB PO PRN (16:45)
[2017-02-16] MEDS ORDERED: ENALAPRILAT 1.25 MG/ML VIAL IV PUSH PRN (16:45)
[2017-02-16] MEDS ORDERED: ACETAMINOPHEN 325 MG TAB PO PRN (16:45)
[2017-02-16] MEDS ORDERED: Post-op Orders (for Pharmacy) MISC XX ONE (16:45)
[2017-02-16] MEDS ORDERED: POTASSIUM CHLOR 20 MEQ PREMIX 100 ML IV PRN (16:45)
[2017-02-16] MEDS ORDERED: NALOXONE HCL 0.4 MG/ML AMP IV PUSH PRN (16:45)
[2017-02-16] MEDS: D5-NS + KCL 20 MEQ INJ 1,000 ML IV SCH ×2 (17:00→21:38)
[2017-02-16] MEDS ORDERED: *LABETALOL HCL 100 MG/20 ML VIAL PERIprocedural Use ONLY ONE (17:14)
[2017-02-16] MEDS ORDERED: *HYDROmorphone PF 1 MG VIAL PERIprocedural Use ONLY ONE ×2 (17:30→17:54)
[2017-02-16] MEDS: MORPHINE SULFATE 30 MG/30 ML PCA IV SCH (17:58)
[2017-02-16] MEDS: KETOROLAC TROMETHAMINE 30 MG/ML (IVP) VIAL IVP PRN (18:46)
[2017-02-16] MEDS: SODIUM CHLORIDE 0.9% FLUSH 5 ML FLUSH IVF SCH (21:00)
[2017-02-16] MEDS: PCA - TOTAL MG MORPHINE DELIVERED PER SHIFT SCH (21:37)
[2017-02-16] MEDS: METOCLOPRAMIDE HCL 10 MG/2 ML VIAL IVS SCH (21:37)
[2017-02-16] MEDS: metroNIDAZOLE 500 MG INJ 100 ML IV SCH (21:38)
[2017-02-17] VITALS (27 sets, daily range): BP systolic 131–146; BP diastolic 84–97; PULSE 75–102; RESP 17–18; TEMP 96.8–97.7; O2SAT 93–97
[2017-02-17] MEDS: KETOROLAC TROMETHAMINE 30 MG/ML (IVP) VIAL IVP PRN ×3 (02:42→17:04)
[2017-02-17] MEDS: MORPHINE SULFATE 30 MG/30 ML PCA IV SCH ×2 (03:52→15:24)
[2017-02-17] MEDS: metroNIDAZOLE 500 MG INJ 100 ML IV SCH ×2 (05:16→14:13)
[2017-02-17] MEDS: D5-NS + KCL 20 MEQ INJ 1,000 ML IV SCH ×2 (05:16→14:13)
[2017-02-17 05:51] LABS: AUTOMATED NEUTROPHIL # 13.7 TH/MM3 (1.8-7.7); HEMATOCRIT 40.3 % (39.0-51.0); HEMO FLAGS DIFF FINAL; LYMPH % 3.3 % (9.0-44.0); LYMPHOCYTE # 0.5 TH/MM3 (1.0-4.8); MEAN CELL VOLUME 78.6 FL (80.0-100.0); MEAN CORPUSCULAR HEMOGLOBIN 25.6 PG (27.0-34.0); MEAN CORPUSCULAR HGB CONC 32.6 % (32.0-36.0); MONO % 5.3 % (0.0-8.0); NEUT % 91.4 % (16.0-70.0); PLATELET COUNT 118 TH/MM3 (150-450); RED BLOOD COUNT 5.12 MIL/MM3 (4.50-5.90); RED CELL DISTRIBUTION WIDTH 17.5 % (11.6-17.2)
[2017-02-17] MEDS: PCA - TOTAL MG MORPHINE DELIVERED PER SHIFT SCH ×3 (06:00→22:00)
[2017-02-17 06:13] LABS: BICARBONATE 22.6 MEQ/L (21.0-32.0); POTASSIUM 4.7 MEQ/L (3.5-5.1)
[2017-02-17] MEDS: PANTOPRAZOLE SODIUM 40 MG VIAL IVP SCH (09:00)
[2017-02-17] MEDS: METOCLOPRAMIDE HCL 10 MG/2 ML VIAL IVS SCH ×2 (09:04→20:07)
[2017-02-17] MEDS: SODIUM CHLORIDE 0.9% FLUSH 5 ML FLUSH IVF SCH ×2 (09:05→20:07)
[2017-02-17] MEDS: PANTOPRAZOLE SOD 40 MG DELAYED RELEASE TAB PO SCH (09:05)
[2017-02-17] MEDS: ALVIMOPAN 12 MG CAPSULE - Post-op dosing PO SCH ×2 (09:05→20:07)
--- NOTE | 2017-02-17 11:22 | HHI.PR ---
Subjective Remarks C/R Surg POD #1 afebrile, VSS UO good VINICIUS mod urine bloody Objective - Vital Signs Date Time Temp Pulse Resp B/P (MAP) Pulse Ox O2 Delivery O2 Flow Rate FiO2 02/17/17 10:00 86 02/17/17 07:30 18 131/93 (106) 97 02/17/17 07:30 Nasal Cannula 2.00 02/17/17 03:00 97.5 Result Diagram: 02/17/17 0510 02/17/17 0510 Other Results PE alert Abd - soft, wound dry stoma pink A/P Assessment and Plan Imp: stable post-op OOB decr IVF check cardiology for rhythm Daniel Galvan MD Feb 17, 2017 11:22
--- NOTE | 2017-02-17 11:48 | PD.WCN.NOT ---
Wound Consult Description: Consult for NEW OSTOMY TEACHING of stoma per Dr Galvan Communicated with: Patient EstellaRN Recommendation: Colostomy: Empty pouch every 2-3 hours or when 1/3-1/2 full Left upper medial buttock wound: 1. Cleanse every other day for continuity of care. 2. Cut Maxorb extra AG and place into wound bed. 3. Cover with gauze 4. Secure with bordered gauze (adhesive island dressing) 5. Date dressing Additional Information: Patient seen on [facility] for ostomy assessment and teaching. Patient is also noted with a left buttock wound that was assessed and measured 1.6cm x 0.6cm x 1.1cm full thickness with ~30% pink tissue and ~70% fascia. Patient is known to singer songwriter from previous admission with debridement of left buttock. Patient is being followed by outpatient wound care. For continuity of care, dressing changes were described as above. Ostomy Type: Colostomy Surgeon: Daniel Galvan MD Date of Surgery: Feb 16, 2017 Educated patient on: Opening and closing pouch Emptying pouch Additional information Patient seen on [facility] for ostomy assessment and teaching. Colostomy is noted to the left abdomen measuring 1 3/4". Stoma is red, round, moist, moderately protruding, edematous, lumen noted to center. Pouch was closed, flange was noted to be open at the top and was closed after measuring and assessing stoma. There is no output at this time. There is scant sanguinous liquid noted in pouch that was not emptied. Dory Barillas [facility] Feb 17, 2017 11:48
[2017-02-17] MEDS ORDERED: METOPROLOL TARTRATE 5 MG/5 ML VIAL IV PUSH PRN (14:30)
[2017-02-17] MEDS ORDERED: METOPROLOL TARTRATE 25 MG TAB PO ONE (15:30)
[2017-02-17] MEDS: MAGNESIUM SULFATE 1 GM PREMIX 100 ML IV SCH ×2 (16:20→17:03)
[2017-02-17] MEDS: LORazepam 1 MG TAB PO PRN ×2 (16:21→22:46)
--- NOTE | 2017-02-17 16:50 | MB ---
cc: RYAN BACA M.D. DATE OF CONSULTATION: 02/17/2017 REASON FOR CONSULTATION: HISTORY OF PRESENT ILLNESS: Sree is a very pleasant 46 old gentleman with history of endocarditis, questionable IV drug abuse in the past, colorectal cancer status post of colorectal surgery per Dr. Galvan, postop with drains in place in CV CU currently. Consult was obtained for frequent 4-6 beat runs of wide complex tachycardia. The patient notes occasional mild palpitations. He did have some mild dull chest pain he admits to today which was brief in duration. Denies shortness of breath, fever, chills, cough, GI or bleeding, paroxysmal nocturnal dyspnea, orthopnea, syncope or dizziness. PAST MEDICAL HISTORY: As per history of present illness. He had an echocardiogram on 01/04/2017. SOCIAL HISTORY He recently quit smoking. Denies alcohol use. ALLERGIES None. CURRENT MEDICATIONS IN THE HOSPITAL: 1. Pantoprazole 40 IV daily. 2. Cephazolin. 3. Metronidazole. 4. Reglan. 5. Potassium repletion. 6. DOWEL MACHINE OPERATOR pump. PHYSICAL EXAMINATION VITAL SIGNS: Pulse 86, blood pressure 135/84, respiratory rate 17, temperature 96.8. Telemetry reveals frequent 5 to 6 beat runs of wide complex tachycardia which appear to be regular, otherwise normal sinus rhythm. General: He is alert and oriented x3 in no acute distress. Neck: Supple. No JVD or bruits. Cardiovascular: S1-S2, no murmurs, rubs, or gallops. Lungs: Clear to auscultation bilaterally. Abdomen: Soft, non-tender, non-distended. Positive bowel sounds. Extremities: No lower extremity edema. LABORATORY DATA White count 15.0, hemoglobin 13.1, hematocrit 40.3, platelet count 118. Sodium 138, potassium 4.7, chloride 109, bicarb 22.6, BUN 11, creatinine 1.01. Glucose 189. Chest x-ray on 02/09/17 is normal. EK02/16/17, which shows normal sinus rhythm at 97 beats per minute. Corrected QT interval is 440 milliseconds. DIAGNOSIS 1. Wide complex tachycardia, nonsustained. 2. Nonsustained V-tach. 3. Tobacco abuse. 4. Colorectal cancer. 5. Recent endocarditis. 6. Hyperglycemia. 7. Elevated white count. 8. Thrombocytopenia. 9. Cardiomyopathy with ejection fraction of 40% on 01/04/2017, mild pulmonary hypertension. PA pressure 38.1. 10. Vegetation on the tricuspid valve on 01/04/17. DISCUSSION: At this point in time, will give the patient two grams of magnesium empirically, will give him 5 milligrams of IV Lopressor q5 minutes x3. If he tolerates this hemodynamically we will then start Lopressor 25 milligrams q6 hours. Check serial troponin, repeat EKG. I have reordered the patient's 2-D echocardiogram. Recommend continued observation in CV CU and telemetry monitoring. At this point in time, I am holding aspirin due to his thrombocytopenia. Will check BMP, BNP, magnesium in the morning. If he seems hemodynamically stable, will also start AVTAR inhibitor as well. MD NORTH Dunne/BLAINE /2:23 PM /4:19 PM
[2017-02-17] MEDS ORDERED: ALVIMOPAN 12 MG CAPSULE PO SCH (21:00)
--- NOTE | 2017-02-17 22:24 | HHI.PR ---
Subjective Remarks C/R Surg POD #1 2 afebrile, VSS - runs of VT UO good VINICIUS mod urine bloody - stent dc'd Objective - Vital Signs Date Time Temp Pulse Resp B/P (MAP) Pulse Ox O2 Delivery O2 Flow Rate FiO2 02/17/17 18:14 17 02/17/17 18:00 90 02/17/17 16:02 97 Nasal Cannula 1.00 02/17/17 15:00 142/94 (110) 02/17/17 11:00 96.8 Result Diagram: 02/17/17 0510 02/17/17 0510 Objective Remarks PE alert Abd - soft, wound dry, stoma stable A/P Assessment and Plan Imp: OOB decr IVF check cardiology for rhythm start PO slowly Daniel Galvan MD Feb 17, 2017 22:24
[2017-02-17] MEDS: METOPROLOL TARTRATE 25 MG TAB PO SCH (22:46)
[2017-02-18] VITALS (21 sets, daily range): BP systolic 129–155; BP diastolic 88–108; PULSE 67–98; RESP 16–19; TEMP 97.8–98.5; O2SAT 92–97
[2017-02-18] MEDS: D5-NS + KCL 20 MEQ INJ 1,000 ML IV SCH ×2 (03:17→14:26)
[2017-02-18] MEDS: MORPHINE SULFATE 30 MG/30 ML PCA IV SCH ×2 (04:34→17:49)
[2017-02-18] MEDS: PCA - TOTAL MG MORPHINE DELIVERED PER SHIFT SCH ×3 (05:36→22:00)
[2017-02-18] MEDS: METOPROLOL TARTRATE 25 MG TAB PO SCH ×3 (05:37→22:47)
[2017-02-18 05:59] LABS: AUTOMATED NEUTROPHIL # 8.3 TH/MM3 (1.8-7.7); BASOPHIL % 0.2 % (0.0-2.0); EOSINOPHIL % 0.4 % (0.0-4.0); HEMATOCRIT 36.2 % (39.0-51.0); LYMPH % 9.2 % (9.0-44.0); LYMPHOCYTE # 0.9 TH/MM3 (1.0-4.8); MEAN CORPUSCULAR HEMOGLOBIN 26.6 PG (27.0-34.0); MEAN CORPUSCULAR HGB CONC 33.3 % (32.0-36.0); MONO % 7.2 % (0.0-8.0); PLATELET COUNT 97 TH/MM3 (150-450); RED BLOOD COUNT 4.53 MIL/MM3 (4.50-5.90); RED CELL DISTRIBUTION WIDTH 17.9 % (11.6-17.2)
[2017-02-18 06:00] LABS: HEMO FLAGS AUTO DIFF
[2017-02-18 06:27] LABS: ANION GAP 7 MEQ/L (5-15); BICARBONATE 23.6 MEQ/L (21.0-32.0); BLOOD UREA NITROGEN 9 MG/DL (7-18); CHLORIDE 108 MEQ/L (98-107); GLOMERULAR FILTRATION RATE 131 ML/MIN (>89); MAGNESIUM 2.2 MG/DL (1.5-2.5); POTASSIUM 4.1 MEQ/L (3.5-5.1); SODIUM (NA) 139 MEQ/L (136-145)
--- NOTE | 2017-02-18 07:24 | MP ---
cc: ANDRADE ESTRADA M.D. DATE OF SURGERY February 16, 2017 PREOPERATIVE DIAGNOSIS Rectal cancer. PROCEDURE Exploratory laparotomy with abdominoperineal resection and omental flap. POSTOPERATIVE DIAGNOSIS Rectal cancer. SURGEON Dr. Estrada PHOTOGRAPHY COLORIST Dr. Hadley Huffman PROCEDURE The patient was placed in the supine position. After adequate general anesthesia his legs were placed in the Keyser stirrups and supported appropriately. The abdomen and perineum were then prepped with Betadine solution and draped in the usual sterile fashion. With Dr. Huffman's assistance the abdomen was opened through a midline incision. Exploration of the abdominal cavity revealed thickening and postop radiation changes in the pelvis with the tumor palpable below the perineal reflection. The proximal colon was palpated and felt to be pretty unremarkable. The small bowel was run from the ligament of Treitz down to the ileocecal valve and felt to be normal. The stomach and duodenum were normal. The liver and gallbladder were unremarkable. Great vessels were of normal caliber and only slightly calcified First the sigmoid colon was mobilized medially by dividing along the white line of Toldt. The left ureteral stent was palpated and carefully preserved. Dissection then proceeded up the left gutter freeing the left colon off the retroperitoneum. The right retroperitoneal space was then opened and the bowel dissected off the presacral fascia preserving the presacral nerves. The pedicle for the superior hemorrhoidal vessels was identified and divided between Keysha's obtaining hemostasis with Vicryl ties. Dissection then proceeded down into the pelvis mobilizing the rectum off the presacral fascia down to the pelvic floor. The lateral rectal stalks were taken using electrocautery and cul-de-sac was opened developing a rather tough, fibrous plane between the anterior rectal wall and the prostatic capsule. The seminal vessels were also somewhat scarred and stuck in the region of the anterior dissection. After the pelvic floor was visualized, dissection proceeded down as far as possible. Dr. Huffman then went to the perineal aspect of the patient and completed the proctectomy by making an elliptical incision around the anal canal, dissecting through the ischiorectal spaces, entering the pelvis around the tip of the coccyx. The bowel was then divided in the mid-sigmoid colon, taking the marginal artery between Keysha's, obtaining hemostasis with Vicryl ties. The bowel was then divided using the DOMO stapling device. After completing the anterior part of the dissection the bowel was delivered through the posterior pelvis and Dr. Huffman completed the proctectomy through the perineal incision. The abdomen was then irrigated copiously with normal saline. Adequate hemostasis was achieved. The perineal wound was closed in several layers reapproximating some of the subcutaneous tissue and remaining pelvic floor muscles with interrupted Vicryl sutures. The subcutaneous tissue was irrigated copiously and the skin closed with multiple interrupted Vicryl sutures and some wound malini for hemostasis. Next, the omentum was taken off the transverse colon, entering the lesser sac and fashioning a long pedicle flap to reach down the left gutter to fill the pelvic cavity. A circular stab wound was then created in the left lower quadrant deep into the subcutaneous tissues. The rectus muscles were split along the direction of their fibers and the peritoneal cavity entered. The end of the sigmoid colon was brought up through this circular stab wound without tension and with good blood supply. A Ernie-Coburn drain was placed down into the pelvis and brought up through a stab wound in the right lower quadrant, secured to the skin with a nylon suture. The midline incision was then closed anatomically using a running #1 PDS suture to reapproximate the midline fascia. The subcutaneous tissue was irrigated copiously and the skin closed with a subcuticular Vicryl suture. The wound area was washed with normal saline and dried, sterile dressing of Telfa and gauze applied. Finally the DOMO staple line was removed from the end of the sigmoid colon and the colostomy matured in the usual Michelle fashion by placing a row of interrupted chromic catgut sutures around the circumference. At completion the stoma did appear to be viable and was patent through the fascial level. Sterile colostomy appliance fitted over the new stoma. The patient tolerated the procedure quite well and was brought to the recovery room in stable condition. The sponge and needle counts were correct at the end of the procedure. MD LOLA Powell/GARY /10:40 PM /7:07 AM
[2017-02-18 07:50] LABS: OVALOCYTES 1+ (NORMAL); PLATELET ESTIMATE SMEAR LOW (NORMAL); PLATELET MORPHOLOGY ENLARGED (NORMAL); SCAN/DIFF AUTO DIFF CONFIRMED
--- NOTE | 2017-02-18 08:13 | HHI.FF ---
Face to Face Verification Diagnosis: (1) Rectal cancer Physical Therapy Order: Evaluate and Treat, Improve ambulation, Strength and gait training Home Health Nursing Order: Medical education Signs/symptoms of disease process Wound care and dressing changes I have seen patient Sree West on 02/18/17. My clinical findings support the need for the requested home health care services because: Ltd mobility - disease progression Deconditioned w/ increased weakness Limited ability to care for self Infection w/ risk of complications I certify that my clinical findings support that this patient is homebound because: Post-op weakness Unsteady gait/balance Poor cardiac reserve Daniel Galvan MD Feb 18, 2017 08:13
[2017-02-18] MEDS: SODIUM CHLORIDE 0.9% FLUSH 5 ML FLUSH IVF SCH ×2 (09:00→21:00)
[2017-02-18] MEDS: METOCLOPRAMIDE HCL 10 MG/2 ML VIAL IVS SCH ×2 (09:00→22:45)
[2017-02-18] MEDS: PANTOPRAZOLE SOD 40 MG DELAYED RELEASE TAB PO SCH (09:00)
[2017-02-18] MEDS: PANTOPRAZOLE SODIUM 40 MG VIAL IVP SCH (09:00)
[2017-02-18] MEDS: ALVIMOPAN 12 MG CAPSULE - Post-op dosing PO SCH ×2 (09:00→22:45)
--- NOTE | 2017-02-18 09:00 | HHI.PR ---
Subjective Remarks C/R Surg POD #2 2 afebrile, VSS - runs of VT UO good VINICIUS mod urine bloody - stent dc'd cardiology noted Objective - Vital Signs Date Time Temp Pulse Resp B/P (MAP) Pulse Ox O2 Delivery O2 Flow Rate FiO2 02/18/17 07:00 84 02/18/17 05:36 16 02/18/17 03:00 94 Nasal Cannula 3.00 02/18/17 03:00 97.8 129/88 (102) Result Diagram: 02/18/17 0511 02/18/17 0511 Objective Remarks PE alert Abd - soft, wound dry, stoma stable A/P Assessment and Plan Imp: OOB decr IVF check cardiology for rhythm - cath today start PO slowly Daniel Galvan MD Feb 18, 2017 09:00
[2017-02-18] MEDS: LORazepam 1 MG TAB PO PRN (11:30)
[2017-02-18] MEDS ORDERED: HEPARIN-NS/PF INJ 1,000 ML ONE (11:44)
[2017-02-18] MEDS ORDERED: MIDAZOLAM HCL 2 MG/2 ML VIAL ONE (11:49)
--- NOTE | 2017-02-18 12:28 | PD.WCN.NOT ---
Wound Consult Description: Consult for NEW OSTOMY TEACHING of stoma per Dr Galvan Communicated with: Patient Estella,RN ANSLEY Nobles Recommendation: Colostomy: Empty pouch every 2-3 hours or when 1/3-1/2 full Left upper medial buttock wound: 1. Cleanse every other day for continuity of care. 2. Cut Maxorb extra AG and place into wound bed. 3. Cover with gauze 4. Secure with bordered gauze (adhesive island dressing) 5. Date dressing Additional Information: Patient seen on for ostomy assessment, teaching, and appliance change today. Ostomy Type: Colostomy Surgeon: Daniel Galvan MD Date of Surgery: Feb 16, 2017 Complete: Education materials, Other (wafer and pouch changed today with patient observing and assisting) Educated patient on: Removing barrier Cleansing peristomal skin Measuring stoma Stoma appearance Size of appliance used for ostomy appliance change Warming wafer (barrier) prior to applying to dry skin Attaching low pressure adaptor to wafer Attaching pouch Closing pouch Additional information *Late entry* Patient seen earlier today for ostomy assessment, teaching, and appliance change. Wafer was noted to be lifting off of patient at the medial side where suture line is located. Wet gauze was used to remove wafer. Peristomal skin was cleansed with gauze and noted to be unremarkable. Stoma was measured at 1 3/4" red, round, moist, lumen noted in center, moderately protruding, edematous, not functioning at this time. Mucocutaneous junction is noted circumferentially with sutures in place. Barrier size 2 1/4" was warmed underneath patient arm prior to application. Low pressure adaptor was attached to barrier by snapping into place on the flange. Plastic was removed from barrier and then placed down around stoma and slight pressure with warm hand was used to help polymers activate. Pouch was then applied by typewriter operator automatic and closed by patient. Patient held his hand over the appliance to keep warm. All questions were answered at this time and educational materials were left at bedside for reinforcement of teaching. Follow up scheduled for tomorrow 02/19/17. [facility]illas [facility] Feb 18, 2017 12:28
--- NOTE | 2017-02-18 13:04 | CATHPROC ---
[employer] HIS Report Study Information Study Number Admission Scheduled Start Study Start [id number] Feb 16 2017 11:54AM 02/18/2017 Feb 18 2017 12:03PM [place] [facility] Cardiac Catheterization Admit Source Facility Department Other [facility] - Blend Technician Physician and Clinical Staff Initial Shiv Malone [facility] Business Development Managerhoang Patiño RN, Tess Ramos RN Other cathlab, cathlab Recorder Jeri Ferraro,LAUNDERETTE ATTENDANT TECH2 Scrub HostGonzalo cummins,RT(R) Procedures Performed Procedure Location (Site) Vessel Name Coronary Angiograms LCA Left Coronary Coronary Angiograms RCA Right Coronary L Heart Cath LV Gram-hand inj. LV LV Ventricle Equipment Time Dry End Operator Description Size Mfg Part Number Used/Scraped TRANSDUCER, TRUWAVE [id number] 12:05 KRAUS DO * Used W/STOCKCOCK *[id number] [id number] *[id number] *[id number] 12:05 Prot-On INDUSTRIES PACK, CCL CUSTOM * Used *[id number] 12:05 Prot-On PACER PEN, SKIN DUAL W/ RULER * Used *[id number] 12:05 IvyDate WIRE, 3MMJ .035 180CM 180CM Used *[id number] 12:05 NAM[employer] Bag Solutions MANIFOLD, 4 PORT * Used *[id number] 12:05 NYCOMED OMNIPAQUE, 350 MG, 150ML 150ML [id number] 12:05 FlowBelow Aero MEDICAL BLANKET,WARM AIR CCL * Used *[id number] 12:05 TERStockStreams MEDICAL SHEATH, FR4 TERUMO (10CM) FR 4 Used *[id number] History: Allergies Allergy Reaction No Known Allergies History: Risk Factors Family History of Hypertension Dyslipidemia Previous [place] Previous Heart Failure Premature CAD No No No No No Prior Valve Prior PCI Prior CABG Surgery No No No Cerebrovascular Peripheral Artery Chronic Lung On Dialysis Diabetes Disease Disease Disease No No No No No History: Symptoms/Diagnosis Selection Items Chest pain SOB History: Stress Tests Stress or Imaging Studies Performed No History: Other Disease Selection Items Renal Failure/Insufficiency History: Other Current Smoker Method Packs a Day Years Used Pack Years Yes Cigarettes 1 25 25 Labs Hgb (g/dl) Hct (%) WBC (l/cumm) 11.60-17.00 35.00-51.00 4.00-11.00 12.1 36.2 10 Glucose (mg/dl) BUN (mg/dl) Creatinine (mg/dl) BUN:Creatinine (1:x) 74.00-106.00 7.00-18.00 0.50-1.30 10.00-20.00 103 9 0.6 15 Na (meq/l) K (meq/l) 136.00-145.00 3.50-5.10 139 4.1 Medication Medication Total Dose (Bolus/Oral) Medication Total Dosage/Unit 1% XYLOCAINE 20 mL MORPHINE 18 mg/hr OXYGEN 2 l/min VERSED 2 mg Medications (Bolus/Oral) Medication Time Given Dosage/Unit Administered By Reason 02/18/2017 12:03:51 MORPHINE 18 mg/hr cathlabshruthi PM Patient arrived on 18 mg/hr MORPHINE given by shruthi hawkins in Left Forearm via Peripheral IV. Pum p/Drip Flow = 0 ml/hr using [Solution Name]. 02/18/2017 12:03:55 OXYGEN 2 l/min PM Patient arrived on 2 l/min OXYGEN via Nasal. 02/18/2017 12:32:53 VERSED 1 mg Avel Patiño RN PM Patient arrived on 1 mg VERSED given by Avel Patiño RN in Right Hand via Peripheral IV. 02/18/2017 12:33:51 1% XYLOCAINE 20 mL Shiv Daugherty PM Patient arrived on 20 mL 1% XYLOCAINE given by Shiv Daugherty in Right Groin via Subcutaneous. 02/18/2017 12:38:58 VERSED 1 mg Avel Patiño RN PM Patient arrived on 1 mg VERSED given by Avel Patiño RN in Right Hand via Peripheral IV. Medication (Drip) Medication Time Given Dosage/Unit Concentration/Unit Diluent (ml) Solution 02/18/2017 12:03:49 IV Solutions 0 mL (IV) 500 NaCl .9 PM Patient arrived on IV Solutions given by shruthi hawkins in Right Hand via Peripheral IV. Pump/Drip Flow = 20 ml/hr using NaCl .9. 02/18/2017 12:03:07 POTASSIUM DRIP 75 mL/hr 10 mL 100 D5W .9 NaCl PM Patient arrived on 75 mL/hr POTASSIUM DRIP in Left Forearm via Peripheral IV. Pump/Drip Flow = 750 ml /hr using D5W .9 NaCl with a concentration of 10 mL in 100 ml. Initial Case Assessment Cardiovascular HR Rhythm NIBP Chest Pain 88 SINUS 159/115 0 Edema Present Skin color Skin None Normal Warm Dry Circulatory - Right Pulses Dorsalis Pedis Femoral 2 2 Scale (0,1,2,3,4,d) Circulatory - Left Pulses Dorsalis Pedis Femoral 2 2 Scale (0,1,2,3,4,d) Neurological State Oriented to time-place- Alert Moves all extremities person Respiration - General Respiration Rate SpO2 (%) O2 (lpm) (B/min) 18 96 2 Chronological Log Time Study Chronological Log 12:02:52 Patient arrived via Bed. 12:02:55 Patient Name, D.O.B, / Armband Verified By R.N. 12:02:56 Consent signed by the physician and the patient and verified by the Blend Technician staff. 12:02:57 Pre-op and post- op instructions given; patient acknowledges understanding of instructions. Verbal Stimulation=~VERBAL~ Physical Stimulation=~PHYSICAL~ Airway=~AIRWAY~ Respiration=~RESPIR ATION~ 12:02:58 TOTAL=~TOTAL~. (0=absent, 1=limited, 2=present) 12:03:00 Patient has been NPO for More than 6Hrs. 12:03:00 Skin Breakdown- 12:03:04 Joe Prominences Protected 12:03:05 A # 20 IV was noted in the Forearm (left). Grade = 0 12:03:07 A # 20 IV was noted in the Wrist (left). Grade = 0 Patient arrived on 75 mL/hr POTASSIUM DRIP in Left Forearm via Peripheral IV. Pump/Drip Flow = 750 ml/hr using 12:03:07 D5W .9 NaCl with a concentration of 10 mL in 100 ml. 12:03:08 History and physical on the chart or being dictated. 12:03:39 A # 20 IV was noted in the Hand (right). Grade = 0 Patient arrived on IV Solutions given by cathlab, cathlab in Right Hand via Peripheral IV. Pump /Drip Flow = 20 ml/hr 12:03:49 using NaCl .9. Patient arrived on 18 mg/hr MORPHINE given by cathlab, cathlab in Left Forearm via Peripheral I V. Pump/Drip Flow = 0 12:03:51 ml/hr using [Solution Name]. 12:03:55 Patient arrived on 2 l/min OXYGEN via Nasal. Vitals capture started with the following parameters, Patient=Adult, Interval=5 min, Initial Pr trnjfw=912 mmHg, 12:10:12 Deflation Rate=5 mmHg, Cuff placed on Left Arm 12:10:20 History and physical on the chart or being dictated. 12:10:48 Reference ECG taken 12:11:25 HR=88 bpm, YLRP=219/115 mmhg, SpO2=96.0 %, Resp=18 B/min, Pain=0, Eugenia=10 Assessment: Initial Case, HR=88 BPM, Rhythm=SINUS, MIUX=312/115 mmhg, Chest Pain=0, Edema=None, Color=Normal, Skin = Warm, Dry Right Pulses: Joe Ped=2, Femoral=2 12:11:30 Left Pulses: Joe Ped=2, Femoral=2 Neurological: State=Alert, Ox3, DICKEY Respiration: Resp=18 B/min, SpO2=96 %, O2=2 lpm 12:15:49 HR=87 bpm, YJPD=341/112 mmhg, SpO2=96.0 %, Resp=13 B/min, Pain=0, Eugenia=10 12:16:28 Bilateral groins prepped with 2% chlorhexidine, and draped after a 3 minute waiting time. 12:19:15 Pressure channel 1 zeroed. 12:20:46 HR=93 bpm, JMXM=366/113 mmhg, SpO2=97.0 %, Resp=18 B/min, Pain=0, Eugenia=10 12:25:49 HR=91 bpm, RVLJ=581/109 mmhg, SpO2=97.0 %, Resp=15 B/min, Pain=0, Eugenia=10 12:30:48 HR=92 bpm, ICDK=315/104 mmhg, SpO2=95.0 %, Resp=13 B/min, Pain=0, Eugenia=10 Time Out. Correct patient, correct procedure, correct physician, power injector not loaded with contrast with surgical 12:32:26 team present. Time Out Concurred by MD and individual staff in procedure. 12:32:38 Case Start 12:32:53 Patient arrived on 1 mg VERSED given by Avel Patiño RN in Right Hand via Peripheral IV. 12:33:51 Patient arrived on 20 mL 1% XYLOCAINE given by Shiv Daugherty in Right Groin via Subcutan eous. 12:34:13 Access site was Right Femoral Artery. 12:34:19 A SHEATH, FR4 TERUMO (10CM) FR 4 was advanced into the Fem Art (right) using the Modified S eldinger technique. Recorded Pressure: LV, HR=96, Condition=Condition 1 12:35:19 (Left Ventricle) LV 158/9/16 Recorded Pressure: LV, Ao, HR=94, Condition=Condition 1 12:35:30 (Left Ventricle) LV 149/7/15, (Aorta) Ao 159/114/135 12:35:34 The LV was manually injected with 10 cc's and visualized. OMNIPAQUE, 350 MG, 150ML 150ML us ed. 12:35:48 HR=91 bpm, ZQGX=910/104 mmhg, SpO2=96.0 %, Resp=15 B/min, Pain=0, Eugenia=10 12:36:23 The RCA was injected and visualized at various angles. OMNIPAQUE, 350 MG, 150ML 150ML used . 12:36:43 Catheter was removed A JL 4.0 INFINITI CATHETER FR 4 was advanced over a wire. OMNIPAQUE, 350 MG, 150ML 150ML was us ed for 12:36:45 injections. 12:37:27 The LCA was injected and visualized at various angles. OMNIPAQUE, 350 MG, 150ML 150ML used . Recorded Pressure: Ao, HR=97, Condition=Condition 1 12:37:44 (Aorta) Ao 155/105/126 12:38:40 Catheter was removed 12:38:45 Case End 12:38:58 Patient arrived on 1 mg VERSED given by Avel Patiño RN in Right Hand via Peripheral IV. 12:40:49 CT=089 bpm, EFVJ=180/106 mmhg, SpO2=95.0 %, Resp=14 B/min, Pain=0, Eugenia=10 12:43:01 Catheter(s) removed without difficulty 12:43:30 No case complications noted. 12:43:31 Cine recording checked. 12:43:35 Bedside Report will be given. 12:43:36 Contrast Scanned 12:43:38 A Left Heart Cath was performed. 12:45:40 Sheath removed; pressure applied to access site. 12:45:46 HR=94 bpm, TTEQ=445/109 mmhg, SpO2=95.0 %, Resp=11 B/min, Pain=0, Eugenia=10 12:50:47 HR=92 bpm, WPBB=340/105 mmhg, SpO2=95.0 %, Resp=12 B/min, Aiken=2 12:55:46 HR=78 bpm, XDSK=304/93 mmhg, SpO2=95.0 %, Resp=11 B/min, Aiken=2 13:00:43 HR=89 bpm, BKKW=913/91 mmhg, SpO2=95.0 %, Resp=11 B/min, Aiken=2 13:02:42 Sterile dressing applied to site 13:02:48 [facility] - Contrast Media Used In Study Contrast Total Opened (mL) Total Used (mL) Total Wasted (mL) Omnipaque 40 40 0 End Study - Maximum Contrast Load Max Contrast Load (mL) 525.8 End Study - Radiation Exposure Fluoro Time (minutes) 1.1 End Study - Patient Disposition Complications Transferred To Telemetry Bed
--- NOTE | 2017-02-18 13:40 | MA ---
cc: SHIV BACA M.D. DATE: 02/18/2017 PROCEDURE PERFORMED Left heart catheterization, left ventriculography, left coronary angiography. INDICATION Frequent nonsustained V-tach, wide-complex tachycardia, cardiomyopathy, tobacco use, multiple cardiac risk factors. PROCEDURAL SUMMARY The patient brought to the cardiac catheterization laboratory, prepped and draped in the usual sterile fashion. 10 cc of one-percent lidocaine was used to locally anesthetize the right common femoral artery. 4-Qatari sheath successfully placed in the right common femoral artery. 4-Qatari JR-4, JL-4 catheters were used to perform left and right coronary angiography, left ventriculography. FINDINGS LV pressure is 150/5-8. EF 60%. Right coronary is large and dominant; it has no significant disease angiographically. Left main coronary artery has no significant disease angiographically. Left circumflex vessel has no significant disease angiographically. First obtuse marginal vessel is a small 0.5-mm vessel AV groove, left circ no significant disease angiographically. Second obtuse marginal vessel is a medium to large size vessel bifurcating in the [id number] segment, tortuous in both branches of the bifurcation with no significant disease angiographically. There are two small posterolateral arteries distally with no significant disease angiographically. LAD is transapical and has no significant disease angiographically. CONCLUSION 1. Angiographically no significant coronary artery disease in right dominant system as detailed above. 2. Normal LV systolic function, ejection fraction 60%. 3. Normal LV pressures 150/5-8. 4. Recommend medical management of nonsustained V-tach. Continue beta javan as previously ordered. Shiv Baca MD AWAnnalisa/KATELYNN /12:41 PM /1:04 PM
[2017-02-18] MEDS ORDERED: MISC INFORMATION XX ONE (13:45)
[2017-02-18] MEDS ORDERED: SODIUM CHLORIDE 0.9% FLUSH 10 ML FLUSH IV FLUSH PRN (13:45)
--- NOTE | 2017-02-18 15:47 | ECHRPT ---
Indication: endocarditis CONCLUSIONS The left ventricular systolic function is severely reduced with an estimated ejection fraction in th e range of 30-35%. Normal left ventricular size. Wall thickness is measured at the upper limits of normal. Trace mitral valve regurgitation. There is moderate tricuspid regurgitation. Large vegetation seen on tricuspid valve The estimated pulmonary arterial pressure is 36.8 mmHg. BP: / HR: Rhythm: Sinus MEASUREMENTS (Male / Female) Normal Values Technical Quality:Good 2D ECHO LV Diastolic Diameter PLAX 4.6 cm 4.2 - 5.9 / 3.9 - 5.3 cm LV Systolic Diameter PLAX 4.0 cm IVS Diastolic Thickness 1.1 cm 0.6 - 1.0 / 0.6 - 0.9 cm LVPW Diastolic Thickness 0.9 cm 0.6 - 1.0 / 0.6 - 0.9 cm LV Relative Wall Thickness 0.4 RV Internal Dim ED PLAX 3.5 cm M-MODE Aortic Root Diameter MM 2.9 cm LA Systolic Diameter MM 3.7 cm LA Ao Ratio MM 1.3 AV Cusp Separation MM 1.7 cm DOPPLER Mitral E Point Velocity 44.9 cm/s Mitral A Point Velocity 61.2 cm/s Mitral E to A Ratio 0.7 LV E' Lateral Velocity 13.5 cm/s Mitral E to LV E' Lateral Ratio 3.3 LV E' Septal Velocity 8.1 cm/s Mitral E to LV E' Septal Ratio 5.6 TR Peak Velocity 259.0 cm/s TR Peak Gradient 26.8 mmHg Right Atrial Pressure 10.0 mmHg Pulmonary Artery Systolic Pressu 36.8 mmHg Right Ventricular Systolic Press 36.8 mmHg FINDINGS LEFT VENTRICLE The left ventricular systolic function is severely reduced with an estimated ejection fraction in th e range of 30-35%. Normal left ventricular size. Wall thickness is measured at the upper limits of normal. RIGHT VENTRICLE Normal right ventricular size and systolic function. LEFT ATRIUM The left atrial size is normal. RIGHT ATRIUM The right atrial size is normal. ATRIAL SEPTUM Normal atrial septal thickness without atrial level shunting by limited color doppler interrogation. AORTA The aortic root and proximal ascending aorta are normal in size on limited imaging. MITRAL VALVE Trace mitral valve regurgitation. Structurally normal mitral valve. AORTIC VALVE Trileaflet aortic valve. No aortic valve stenosis or regurgitation. TRICUSPID VALVE There is moderate tricuspid regurgitation. large vegetation seen on tricuspid valve The estimated pulmonary arterial pressure is 36.8 mmHg. PULMONARY VALVE No pulmonary valve regurgitation or stenosis. VESSELS The inferior vena cava is normal in size. PERICARDIUM No pericardial effusion. Darrell Farnsworth MD (Electronically Signed) Final Date:18 February 2017 15:46
[2017-02-18] MEDS ORDERED: IOHEXOL 350 MG/ML 50 ML BTL (for Cath Lab) OTHER ONE (16:50)
--- NOTE | 2017-02-18 17:26 | EKG ---
Date Performed: 02/17/2017 Time Performed: 15:45:22 PTAGE: 46 years EKG: Sinus rhythm . When compared to previous tracing, there is now evidence of a Couplet of premature ventricular cont ractions now present. Normal ECG PREVIOUS TRACING : 02/16/2017 13.10 DOCTOR: Darinel Hernandez Interpretating Date/Time 02/18/2017 17:24:18
[2017-02-18] MEDS ORDERED: SODIUM CHLORIDE 0.9% FLUSH 10 ML FLUSH IV FLUSH SCH (21:00)
[2017-02-18] MEDS: KETOROLAC TROMETHAMINE 30 MG/ML (IVP) VIAL IVP PRN (22:52)
[2017-02-19] VITALS (20 sets, daily range): BP systolic 124–148; BP diastolic 72–101; PULSE 84–102; RESP 16–22; TEMP 96.9–98.6; O2SAT 90–94
[2017-02-19] MEDS: LORazepam 1 MG TAB PO PRN ×3 (00:17→23:23)
[2017-02-19] MEDS: D5-NS + KCL 20 MEQ INJ 1,000 ML IV SCH (00:19)
[2017-02-19] MEDS: PCA - TOTAL MG MORPHINE DELIVERED PER SHIFT SCH (06:00)
[2017-02-19] MEDS: MORPHINE SULFATE 30 MG/30 ML PCA IV SCH (06:46)
[2017-02-19] MEDS: METOPROLOL TARTRATE 25 MG TAB PO SCH ×3 (06:47→21:10)
[2017-02-19] MEDS: PANTOPRAZOLE SOD 40 MG DELAYED RELEASE TAB PO SCH (08:28)
[2017-02-19] MEDS: ALVIMOPAN 12 MG CAPSULE - Post-op dosing PO SCH ×2 (08:28→21:10)
[2017-02-19] MEDS: SODIUM CHLORIDE 0.9% FLUSH 5 ML FLUSH IVF SCH ×2 (08:28→21:00)
[2017-02-19] MEDS: METOCLOPRAMIDE HCL 10 MG/2 ML VIAL IVS SCH (08:28)
[2017-02-19] MEDS: PANTOPRAZOLE SODIUM 40 MG VIAL IVP SCH (08:30)
[2017-02-19] MEDS: KETOROLAC TROMETHAMINE 30 MG/ML (IVP) VIAL IVP PRN (08:38)
[2017-02-19] MEDS ORDERED: METOCLOPRAMIDE HCL 10 MG/2 ML VIAL IVS PRN (10:15)
--- NOTE | 2017-02-19 11:49 | PD.CARD.PN ---
Subjective Subjective Remarks alert in nad Objective Medications Current Medications Medications (Trade) Dose Ordered Sig/Osvaldo Route Start Time Stop Time Status Last Admin (Entereg) 12 mg BOOM MAN PO 02/16/17 12:30 02/19/17 12:29 02/16/17 13:45 (Entereg) 12 mg BID PO 02/17/17 09:00 02/23/17 21:01 02/19/17 08:28 Sodium Chloride 500 ml @ 30 mls/hr [id number] PRN IV 02/16/17 12:30 02/19/17 12:29 (Lopressor) 25 mg BOOM MAN PRN PO 02/16/17 12:30 02/19/17 12:29 (Betadine 5% Antisepsis Kit) 1 applic BOOM MAN PRN EACH NARE 02/16/17 12:30 02/19/17 12:29 02/16/17 12:45 (Chlorhexidine 2% Cloth) 3 pack BOOM MAN PRN TOPICAL 02/16/17 12:30 02/19/17 12:29 Potassium Chloride/Dextrose/ Sod Cl 1,000 ml @ 60 mls/hr [id number] IV 02/16/17 18:00 02/19/17 00:19 (NS Flush) 2 ml UNSCH PRN IVF 02/16/17 16:45 (NS Flush) 2 ml BID IVF 02/16/17 21:00 02/19/17 08:28 ([place] 5-325 Mg) 1 tab Q4H PRN PO 02/16/17 16:45 ([place] 5-325 Mg) 2 tab Q4H PRN PO 02/16/17 16:45 (Toradol Inj) 30 mg Q6H PRN IVP 02/16/17 16:45 02/19/17 16:44 02/19/17 08:38 (Tylenol) 650 mg Q4H PRN PO 02/16/17 16:45 (Protonix Inj) 40 mg DAILY IVP 02/17/17 09:00 (Protonix) 40 mg DAILY PO 02/17/17 09:00 02/19/17 08:28 (Zofran Inj) 4 mg Q6H PRN IV PUSH 02/16/17 16:45 02/16/17 21:49 (Vasotec Inj) 1.25 mg Q4H PRN IV PUSH 02/16/17 16:45 (Vasotec Inj) 2.5 mg Q6H PRN IV PUSH 02/16/17 16:45 02/18/17 14:37 (Chloraseptic Flex) 1 lozenge UNSCH PRN BUCCAL 02/16/17 16:45 Potassium Chloride 100 ml @ 50 mls/hr UNSCH PRN IV 02/16/17 16:45 Potassium Chloride 100 ml @ 25 mls/hr UNSCH PRN IV 02/16/17 16:45 (Lopressor Inj) 5 mg Q5M PRN IV PUSH 02/17/17 14:30 (Lopressor) 25 mg Q8HR PO 02/17/17 22:00 02/19/17 06:47 (Ativan) 1 mg Q6H PRN PO 02/17/17 16:00 02/19/17 08:38 (Reglan Inj) 10 mg Q12HR PRN IVS 02/19/17 10:15 Vital Signs / I&O Vital Signs Date Time Temp Pulse Resp B/P (MAP) Pulse Ox O2 Delivery O2 Flow Rate FiO2 02/19/17 11:43 98.1 95 21 124/91 (102) 94 02/19/17 11:43 94 Room Air 02/19/17 11:00 92 02/19/17 10:00 91 02/19/17 09:00 98 02/19/17 08:00 90 02/19/17 07:15 98.0 99 18 132/85 (101) 93 02/19/17 07:15 93 Room Air 02/19/17 07:00 99 02/19/17 06:46 16 02/19/17 06:00 86 02/19/17 06:00 16 02/19/17 05:00 97 02/19/17 04:00 86 02/19/17 03:40 98.6 102 18 148/98 (115) 90 02/19/17 03:14 97 Nasal Cannula 1.00 02/19/17 03:00 90 02/19/17 02:00 84 02/19/17 01:00 84 02/19/17 00:34 94 Nasal Cannula 1.00 02/19/17 00:30 98.3 88 18 139/72 (94) 93 02/19/17 00:00 89 02/18/17 23:00 98 02/18/17 22:00 95 02/18/17 22:00 16 02/18/17 21:00 92 02/18/17 21:00 97 Nasal Cannula 2.00 02/18/17 20:00 89 02/18/17 20:00 98.5 91 18 152/103 (119) 93 02/18/17 19:00 86 02/18/17 18:00 98 02/18/17 17:49 17 02/18/17 16:00 87 02/18/17 15:00 97 Nasal Cannula 2.00 02/18/17 15:00 92 02/18/17 15:00 93 19 155/108 (124) 97 02/18/17 15:00 97 Nasal Cannula 2.00 02/18/17 14:00 88 02/18/17 14:00 17 I/O 02/18/17 02/18/17 02/18/17 02/19/17 02/19/17 02/19/17 07:00 15:00 23:00 07:00 15:00 23:00 Intake Total 1112 ml 850 ml 880 ml 480 ml Output Total 690 ml 3305 ml 3910 ml Balance 422 ml 850 ml -2425 ml -3430 ml Intake Oral 100 ml 360 ml 480 ml IV Total 1012 ml 850 ml 520 ml Output Urine Total 450 ml 2650 ml 3600 ml Stool Total 0 ml Drainage Total 240 ml 655 ml 310 ml Physical Exam GENERAL: SKIN: Warm and dry. HEAD: Normocephalic. EYES: No scleral icterus. No injection or drainage. NECK: Supple, trachea midline. No JVD or lymphadenopathy. CARDIOVASCULAR: Regular rate and rhythm without murmurs, gallops, or rubs. RESPIRATORY: Breath sounds equal bilaterally. No accessory muscle use. GASTROINTESTINAL: Abdomen soft, non-tender, nondistended. MUSCULOSKELETAL: No cyanosis, or edema. BACK: Nontender without obvious deformity. No CVA tenderness. Assessment and Plan Problem List: (1) NSVT (nonsustained ventricular tachycardia) ICD Codes: I47.2 - Ventricular tachycardia Assessment and Plan 1.) NSVT - c wnl, ef=60%, ectopy improved on lopressor and electrolyte repletion Shiv Daugherty MD Feb 19, 2017 11:49
--- NOTE | 2017-02-19 12:37 | PD.WCN.NOT ---
Wound Consult Description: Consult for NEW OSTOMY TEACHING of stoma per Dr Galvan Communicated with: Patient Recommendation: Colostomy: 1. Empty pouch every 2-3 hours or when 1/3-1/2 full 2. Change appliance using 2 1/4" before leaks occur Left upper medial buttock wound: 1. Cleanse every other day for continuity of care. 2. Cut Maxorb extra AG and place into wound bed. 3. Cover with gauze 4. Secure with bordered gauze (adhesive island dressing) 5. Date dressing Additional Information: Patient seen on for ostomy assessment and teaching. Ostomy Type: Colostomy Surgeon: Daniel Galvan MD Date of Surgery: Feb 16, 2017 Complete: Education materials, Rx (Left on chart), Other Educated patient on: Calling RN/SATELLITE DISH TECHNICIAN for help to empty pouch when 1/3-1/2 full Reading educational materials left in room for reinforcement of teaching Diet Additional information Patient seen on for ostomy assessment and teaching. Patient was sleeping upon arrival. Easily arousable. Appliance was noted to be intact. Pouch had minimal yellow/pink liquid noted that was not emptied. Pouch was full of air and it was demonstrated to patient how to release the air from the pouch at the top by pulling tab and the flange. Pouch was decompressed and then snapped back into place. Patient states that the pouch needs to be emptied often and will ask for help if needed. Stoma is red, round, moist, moderately protruding, edematous, not functioning at this time with lumen noted to center of stoma, measuring 1 3/4". Dory Barillas [facility] Feb 19, 2017 12:37
[2017-02-19] MEDS: ACETAMINOPHEN/HYDROcodone 325 MG/5 MG TAB PO PRN ×2 (14:55→21:14)
--- NOTE | 2017-02-19 15:38 | PD.ID.CON ---
History of Present Illness Service ID Consult Requested By Dr.Arthur Daugherty Reason for Consult Evaluation and Mment of Vegetation in patient with prior h/o MRSA endocarditis. Primary Care Physician Unknown Diagnoses: History of Present Illness is a 45 y/o CM with history of Rectal Cancer (Invasive moderately differentiated Adenocarcinoma with no prior lung or distant mets), and had no port or PICC line and had been receiving oral chemotherapy. Patient is followed by Dr. Vielka Harrell. Patient also sees colorectal surgeon and has undergone colonoscopy. Patient also has been seeing Dr. Santana radiation oncologist and has been undergoing radiation therapy. Patient presented in October 2015 with MRSA endocarditis with extensive workup, prolonged stay. He developed a sacral decub during this admission and has been undergoing wound care for the same. Patient has been following with and underwent an exploratory laparotomy with abdominoperineal resection and omental flap on 02/16/2017. On same day patient was seen by and underwent Cystoscopy and placement of bilateral ureteral catheters. Patient underwent a cardiac cath on 02/18/17 by . ECHO shows large vegetation. Patient denies any fever, chills, night sweats or interim drug abuse since discharge. Last positive blood culture 11/18/2016. Patient needs Cardiothoracic surgery follow up. Patient reports he was scheduled for appointment but it was post poned by CTS office but no scheduled appt date. No fevers No rash No diarrhea No night sweats No new symptoms in the interim No interim drug use. Compliant with follow up appts. ID consulted for evaluation and Mment of Vegetation in patient with prior h/o MRSA endocarditis. Review of Systems Constitutional: DENIES: Diaphoretic episodes, Fatigue, Fever, Weight gain, Weight loss, Chills, Dizziness, Change in appetite, Night Sweats Endocrine: DENIES: Heat/cold intolerance, Polydipsia, Polyuria, Polyphagia Eyes: DENIES: Blurred vision, Diplopia, Eye inflammation, Eye pain, Vision loss , Photosensitivity, Double Vision Ears, nose, mouth, throat: DENIES: Tinnitus, Hearing loss, Vertigo, Nasal discharge, Oral lesions, Throat pain, Hoarseness, Ear Pain, Running Nose, Epistaxis, Sinus Pain, Toothache, Odynophagia Respiratory: DENIES: Apneas, Cough, Snoring, Wheezing, Hemoptysis, Sputum production, Shortness of breath Cardiovascular: DENIES: Chest pain, Palpitations, Syncope, Dyspnea on Exertion , PND, Lower Extremity Edema, Orthopnea, Claudication Gastrointestinal: DENIES: Abdominal pain, Black stools, Bloody stools, Constipation, Diarrhea, Nausea, Vomiting, Difficulty Swallowing, Anorexia Genitourinary: DENIES: Sexual dysfunction, Urinary frequency, Urinary incontinence, Urgency, Hematuria, Dysuria, Nocturia, Penile Discharge, Testicular Pain, Testicular Swelling Musculoskeletal: DENIES: Joint pain, Muscle aches, Stiffness, Joint Swelling, Back pain, Neck pain Integumentary: DENIES: Abnormal pigmentation, Nail changes, Pruritus, Rash Hematologic/lymphatic: DENIES: Bruising, Lymphadenopathy Immunologic/allergic: DENIES: Eczema, Urticaria Neurologic: DENIES: Abnormal gait, Headache, Localized weakness, Paresthesias, Seizures, Speech Problems, Tremor, Poor Balance Psychiatric: DENIES: Anxiety, Confusion, Mood changes, Depression, Hallucinations, Agitation, Suicidal Ideation, Homicidal Ideation, Delusions Except as stated in HPI: all other systems reviewed are Neg Past Family Social History Allergies: Coded Allergies: No Known Allergies (Verified Adverse Reaction, Unknown, 02/16/17) Past Medical History Rectal Cancer (Invasive moderately differentiated Adenocarcinoma) MRSA endocarditis Sacral decub ulcer Prior h/o IVDA Past Surgical History per HPI Reported Medications Reported Meds & Active Scripts Active Augmentin (Amoxicillin-Clavulanate) 875-125 Mg Tab 1 Tab PO BID 14 Days Active Ordered Medications Current Medications Medications (Trade) Dose Ordered Sig/Osvaldo Route Start Time Stop Time Status Last Admin (Entereg) 12 mg BID PO 02/17/17 09:00 02/23/17 21:01 02/19/17 08:28 Potassium Chloride/Dextrose/ Sod Cl 1,000 ml @ 60 mls/hr [id number] IV 02/16/17 18:00 02/19/17 00:19 (NS Flush) 2 ml UNSCH PRN IVF 02/16/17 16:45 (NS Flush) 2 ml BID IVF 02/16/17 21:00 02/19/17 08:28 ([place] 5-325 Mg) 1 tab Q4H PRN PO 02/16/17 16:45 ([place] 5-325 Mg) 2 tab Q4H PRN PO 02/16/17 16:45 02/19/17 14:55 (Tylenol) 650 mg Q4H PRN PO 02/16/17 16:45 (Protonix Inj) 40 mg DAILY IVP 02/17/17 09:00 (Protonix) 40 mg DAILY PO 02/17/17 09:00 02/19/17 08:28 (Zofran Inj) 4 mg Q6H PRN IV PUSH 02/16/17 16:45 02/16/17 21:49 (Vasotec Inj) 1.25 mg Q4H PRN IV PUSH 02/16/17 16:45 (Vasotec Inj) 2.5 mg Q6H PRN IV PUSH 02/16/17 16:45 02/18/17 14:37 (Chloraseptic Flex) 1 lozenge UNSCH PRN BUCCAL 02/16/17 16:45 Potassium Chloride 100 ml @ 50 mls/hr UNSCH PRN IV 02/16/17 16:45 Potassium Chloride 100 ml @ 25 mls/hr UNSCH PRN IV 02/16/17 16:45 (Lopressor Inj) 5 mg Q5M PRN IV PUSH 02/17/17 14:30 (Lopressor) 25 mg Q8HR PO 02/17/17 22:00 02/19/17 14:49 (Ativan) 1 mg Q6H PRN PO 02/17/17 16:00 02/19/17 08:38 (Reglan Inj) 10 mg Q12HR PRN IVS 02/19/17 10:15 Family History single. Mother helps patient. Social History Prior h/o IVDA none recently. No alcohol. No smoking. Physical Exam Vital Signs Vital Signs Date Time Temp Pulse Resp B/P (MAP) Pulse Ox O2 Delivery O2 Flow Rate FiO2 02/19/17 15:00 94 Room Air 02/19/17 13:00 96 02/19/17 12:00 90 02/19/17 11:43 98.1 95 21 124/91 (102) 94 02/19/17 11:43 94 Room Air 02/19/17 11:00 92 02/19/17 10:00 91 02/19/17 09:00 98 02/19/17 08:00 90 02/19/17 07:15 98.0 99 18 132/85 (101) 93 02/19/17 07:15 93 Room Air 02/19/17 07:00 99 02/19/17 06:46 16 02/19/17 06:00 86 02/19/17 06:00 16 02/19/17 05:00 97 02/19/17 04:00 86 02/19/17 03:40 98.6 102 18 148/98 (115) 90 02/19/17 03:14 97 Nasal Cannula 1.00 02/19/17 03:00 90 02/19/17 02:00 84 02/19/17 01:00 84 02/19/17 00:34 94 Nasal Cannula 1.00 02/19/17 00:30 98.3 88 18 139/72 (94) 93 02/19/17 00:00 89 02/18/17 23:00 98 02/18/17 22:00 95 02/18/17 22:00 16 02/18/17 21:00 92 02/18/17 21:00 97 Nasal Cannula 2.00 02/18/17 20:00 89 02/18/17 20:00 98.5 91 18 152/103 (119) 93 02/18/17 19:00 86 02/18/17 18:00 98 02/18/17 17:49 17 02/18/17 16:00 87 Physical Exam GENERAL: This is a well-nourished, well-developed patient, in no apparent distress. SKIN: No rashes, ecchymoses or lesions. Cool and dry. HEAD: Atraumatic. Normocephalic. No temporal or scalp tenderness. EYES: Pupils equal round and reactive. Extraocular motions intact. No scleral icterus. No injection or drainage. ENT: Nose without bleeding, purulent drainage or septal hematoma. Throat without erythema, tonsillar hypertrophy or exudate. Uvula midline. Airway patent. NECK: Trachea midline. Supple, nontender, no meningeal signs. CARDIOVASCULAR: HS audible. Tachycardia. RESPIRATORY: Clear to auscultation. Breath sounds equal bilaterally. No wheezes , rales, or rhonchi. GASTROINTESTINAL: Abdomen soft, non-tender, nondistended. No hepato-splenomegaly , or palpable masses. No guarding. MUSCULOSKELETAL: Extremities without clubbing, cyanosis, or edema. No joint tenderness, effusion, or edema noted. No calf tenderness. Negative Homans sign bilaterally. NEUROLOGICAL: Awake and alert. Gross exam non focal. Psych cooperative IV line sites with no e.o infection. Result Diagram: 02/18/17 0511 02/18/17 05 Assessment and Plan Assessment and Plan Prior h/o MRSA endocarditis. Persistent large vegetation with no other criteria that met for Infective endocarditis at present time. Rectal Cancer. Exploratory laparotomy with abdominoperineal resection and omental flap on 02/16. Cystoscopy and placement of bilateral ureteral catheters 02/16/17. Recs: Cannot perform CRP as he is post op and cannot be accurately interpreted in post op setting. Patient does not report any new symptoms s.o IE. Follow clinically. Recommend follow up with Cardiothoracic surgery as outpatient. Observe off antibiotics. Will sign off please call back if any change in clinical condition. Lucille Lizama MD Feb 19, 2017 15:38
--- NOTE | 2017-02-19 17:12 | HHI.PR ---
Subjective Remarks C/R Surg POD #3 2 afebrile, VSS - runs of VT UO good VINICIUS mod urine bloody - stent dc'd cardiology noted - cath normal Objective - Vital Signs Date Time Temp Pulse Resp B/P (MAP) Pulse Ox O2 Delivery O2 Flow Rate FiO2 02/19/17 15:00 94 Room Air 02/19/17 13:00 96 02/19/17 11:43 98.1 21 124/91 (102) 02/19/17 03:14 1.00 Result Diagram: 02/18/17 0511 02/18/17 0511 Objective Remarks PE alert Abd - soft, wound dry, stoma stable - functioning A/P Assessment and Plan Imp: OOB decr IVF check cardiology for rhythm - tx if stable start PO slowly Daniel Galvan MD Feb 19, 2017 17:12
[2017-02-20] VITALS: BP 138/99; PULSE 100; PULSE 106; RESP 20; TEMP 96.7; O2SAT 95
[2017-02-20 04:00] VITALS: BP 128/89; PULSE 96; RESP 20; TEMP 96.1; O2SAT 94
[2017-02-20] MEDS: METOPROLOL TARTRATE 25 MG TAB PO SCH ×3 (04:22→21:50)
[2017-02-20] MEDS: D5-NS + KCL 20 MEQ INJ 1,000 ML IV SCH ×2 (04:22→21:51)
[2017-02-20] MEDS: ACETAMINOPHEN/HYDROcodone 325 MG/5 MG TAB PO PRN ×5 (04:22→21:51)
[2017-02-20 08:00] VITALS: BP 128/90; PULSE 92; RESP 19; TEMP 96.8; O2SAT 90
[2017-02-20] MEDS: SODIUM CHLORIDE 0.9% FLUSH 5 ML FLUSH IVF SCH ×2 (09:00→21:00)
[2017-02-20] MEDS: PANTOPRAZOLE SODIUM 40 MG VIAL IVP SCH (09:00)
[2017-02-20] MEDS: ALVIMOPAN 12 MG CAPSULE - Post-op dosing PO SCH ×2 (09:04→21:50)
[2017-02-20] MEDS: PANTOPRAZOLE SOD 40 MG DELAYED RELEASE TAB PO SCH (09:04)
[2017-02-20] MEDS: LORazepam 1 MG TAB PO PRN ×3 (09:07→21:50)
[2017-02-20 12:00] VITALS: BP 124/91; PULSE 95; RESP 19; TEMP 96.1; O2SAT 93
--- NOTE | 2017-02-20 14:28 | HHI.PR ---
Subjective Remarks POD#4 s/p APR Sore, no nausea Objective Vital Signs Date Time Temp Pulse Resp B/P (MAP) Pulse Ox O2 Delivery O2 Flow Rate FiO2 02/20/17 13:28 Room Air 02/20/17 12:00 96.1 95 19 124/91 (102) 93 02/20/17 08:00 96.8 92 19 128/90 (103) 90 02/20/17 08:00 Room Air 02/20/17 04:00 96.1 96 20 128/89 (102) 94 02/20/17 00:00 96.7 106 20 138/99 (112) 95 02/20/17 00:00 100 02/19/17 20:00 98.4 99 22 136/101 (113) 94 02/19/17 20:00 98 02/19/17 16:00 96.9 101 16 142/93 (109) 94 02/19/17 15:00 94 Room Air I/O 02/19/17 02/19/17 02/19/17 02/20/17 02/20/17 02/20/17 07:00 15:00 23:00 07:00 15:00 23:00 Intake Total 480 ml 1180 ml 1140 ml Output Total 3910 ml 570 ml 985 ml Balance -3430 ml 610 ml 155 ml Intake Oral 480 ml 460 ml 480 ml IV Total 720 ml 660 ml Output Urine Total 3600 ml 500 ml 500 ml Stool Total 150 ml Drainage Total 310 ml 70 ml 335 ml # Bowel Movements 0 Result Diagram: 02/18/17 0511 02/18/17 0511 Objective Remarks Abdomen soft, nondistended, tender Wounds Clean Stoma pink VINICIUS serosanguinous Assessment and Plan Assessment and Plan Doing well Advance diet Platelets decreased, watch Adelita Metz MD Feb 20, 2017 14:28
[2017-02-20 16:00] VITALS: BP 145/95; PULSE 115; RESP 20; TEMP 97.4; O2SAT 91
--- NOTE | 2017-02-20 17:22 | PD.CARD.PN ---
Subjective Subjective Remarks alert in nad Objective Medications Current Medications Medications (Trade) Dose Ordered Sig/Osvaldo Route Start Time Stop Time Status Last Admin (Entereg) 12 mg BID PO 02/17/17 09:00 02/23/17 21:01 02/20/17 09:04 Potassium Chloride/Dextrose/ Sod Cl 1,000 ml @ 60 mls/hr [id number] IV 02/16/17 18:00 02/20/17 04:22 (NS Flush) 2 ml UNSCH PRN IVF 02/16/17 16:45 (NS Flush) 2 ml BID IVF 02/16/17 21:00 02/19/17 08:28 ([place] 5-325 Mg) 1 tab Q4H PRN PO 02/16/17 16:45 ([place] 5-325 Mg) 2 tab Q4H PRN PO 02/16/17 16:45 02/20/17 12:57 (Tylenol) 650 mg Q4H PRN PO 02/16/17 16:45 (Protonix Inj) 40 mg DAILY IVP 02/17/17 09:00 (Protonix) 40 mg DAILY PO 02/17/17 09:00 02/20/17 09:04 (Zofran Inj) 4 mg Q6H PRN IV PUSH 02/16/17 16:45 02/16/17 21:49 (Vasotec Inj) 1.25 mg Q4H PRN IV PUSH 02/16/17 16:45 (Vasotec Inj) 2.5 mg Q6H PRN IV PUSH 02/16/17 16:45 02/18/17 14:37 (Chloraseptic Flex) 1 lozenge UNSCH PRN BUCCAL 02/16/17 16:45 Potassium Chloride 100 ml @ 50 mls/hr UNSCH PRN IV 02/16/17 16:45 Potassium Chloride 100 ml @ 25 mls/hr UNSCH PRN IV 02/16/17 16:45 (Lopressor Inj) 5 mg Q5M PRN IV PUSH 02/17/17 14:30 (Lopressor) 25 mg Q8HR PO 02/17/17 22:00 02/20/17 14:30 (Ativan) 1 mg Q6H PRN PO 02/17/17 16:00 02/20/17 15:40 (Reglan Inj) 10 mg Q12HR PRN IVS 02/19/17 10:15 Vital Signs / I&O Vital Signs Date Time Temp Pulse Resp B/P (MAP) Pulse Ox O2 Delivery O2 Flow Rate FiO2 02/20/17 16:00 97.4 115 20 145/95 (112) 91 02/20/17 15:19 Room Air 02/20/17 13:28 Room Air 02/20/17 12:00 96.1 95 19 124/91 (102) 93 02/20/17 08:00 96.8 92 19 128/90 (103) 90 02/20/17 08:00 Room Air 02/20/17 04:00 96.1 96 20 128/89 (102) 94 02/20/17 00:00 96.7 106 20 138/99 (112) 95 02/20/17 00:00 100 02/19/17 20:00 98.4 99 22 136/101 (113) 94 02/19/17 20:00 98 I/O 02/19/17 02/19/17 02/19/17 02/20/17 02/20/17 02/20/17 06:59 14:59 22:59 06:59 14:59 22:59 Intake Total 480 ml 1180 ml 1140 ml Output Total 3910 ml 570 ml 985 ml Balance -3430 ml 610 ml 155 ml Intake Oral 480 ml 460 ml 480 ml IV Total 720 ml 660 ml Output Urine Total 3600 ml 500 ml 500 ml Stool Total 150 ml Drainage Total 310 ml 70 ml 335 ml # Bowel Movements 0 Physical Exam GENERAL: SKIN: Warm and dry. HEAD: Normocephalic. EYES: No scleral icterus. No injection or drainage. NECK: Supple, trachea midline. No JVD or lymphadenopathy. CARDIOVASCULAR: Regular rate and rhythm without murmurs, gallops, or rubs. RESPIRATORY: Breath sounds equal bilaterally. No accessory muscle use. GASTROINTESTINAL: Abdomen soft, non-tender, nondistended. MUSCULOSKELETAL: No cyanosis, or edema. BACK: Nontender without obvious deformity. No CVA tenderness. Assessment and Plan Problem List: (1) NSVT (nonsustained ventricular tachycardia) ICD Codes: I47.2 - Ventricular tachycardia Assessment and Plan 1.) NSVT - lhc wnl, ef=60%, ectopy improved on lopressor and electrolyte repletion 2.) SBE - id rec f/u ct surgery Shiv Daugherty MD Feb 20, 2017 17:22
[2017-02-20 20:00] VITALS: BP 145/95; PULSE 93; RESP 18; TEMP 98.2; O2SAT 96
[2017-02-21] VITALS: BP 136/99; PULSE 92; RESP 18; TEMP 96.5; O2SAT 93
[2017-02-21 04:16] VITALS: BP 134/100; PULSE 93; RESP 18; TEMP 96.7; O2SAT 94
[2017-02-21] MEDS: LORazepam 1 MG TAB PO PRN ×3 (04:23→23:09)
[2017-02-21] MEDS: ACETAMINOPHEN/HYDROcodone 325 MG/5 MG TAB PO PRN ×5 (04:23→21:18)
[2017-02-21] MEDS: METOPROLOL TARTRATE 25 MG TAB PO SCH ×3 (04:23→21:18)
[2017-02-21 08:00] VITALS: BP 129/97; PULSE 92; RESP 19; TEMP 96.7; O2SAT 92
[2017-02-21] MEDS: SODIUM CHLORIDE 0.9% FLUSH 5 ML FLUSH IVF SCH ×2 (08:56→21:00)
[2017-02-21] MEDS: PANTOPRAZOLE SODIUM 40 MG VIAL IVP SCH (08:56)
[2017-02-21] MEDS: PANTOPRAZOLE SOD 40 MG DELAYED RELEASE TAB PO SCH (08:56)
[2017-02-21] MEDS: ALVIMOPAN 12 MG CAPSULE - Post-op dosing PO SCH ×2 (08:56→21:18)
--- NOTE | 2017-02-21 10:40 | PD.CARD.PN ---
Subjective Subjective Remarks alert in nad, states palpitations less frequent, denies chest pain Objective Medications Current Medications Medications (Trade) Dose Ordered Sig/Osvaldo Route Start Time Stop Time Status Last Admin (Entereg) 12 mg BID PO 02/17/17 09:00 02/23/17 21:01 02/21/17 08:56 Potassium Chloride/Dextrose/ Sod Cl 1,000 ml @ 60 mls/hr [id number] IV 02/16/17 18:00 02/20/17 21:51 (NS Flush) 2 ml UNSCH PRN IVF 02/16/17 16:45 (NS Flush) 2 ml BID IVF 02/16/17 21:00 02/19/17 08:28 ([place] 5-325 Mg) 1 tab Q4H PRN PO 02/16/17 16:45 ([place] 5-325 Mg) 2 tab Q4H PRN PO 02/16/17 16:45 02/21/17 08:57 (Tylenol) 650 mg Q4H PRN PO 02/16/17 16:45 (Protonix Inj) 40 mg DAILY IVP 02/17/17 09:00 (Protonix) 40 mg DAILY PO 02/17/17 09:00 02/21/17 08:56 (Zofran Inj) 4 mg Q6H PRN IV PUSH 02/16/17 16:45 02/16/17 21:49 (Vasotec Inj) 1.25 mg Q4H PRN IV PUSH 02/16/17 16:45 (Vasotec Inj) 2.5 mg Q6H PRN IV PUSH 02/16/17 16:45 02/18/17 14:37 (Chloraseptic Flex) 1 lozenge UNSCH PRN BUCCAL 02/16/17 16:45 Potassium Chloride 100 ml @ 50 mls/hr UNSCH PRN IV 02/16/17 16:45 Potassium Chloride 100 ml @ 25 mls/hr UNSCH PRN IV 02/16/17 16:45 (Lopressor Inj) 5 mg Q5M PRN IV PUSH 02/17/17 14:30 (Lopressor) 25 mg Q8HR PO 02/17/17 22:00 02/21/17 04:23 (Ativan) 1 mg Q6H PRN PO 02/17/17 16:00 02/21/17 04:23 (Reglan Inj) 10 mg Q12HR PRN IVS 02/19/17 10:15 Vital Signs / I&O Vital Signs Date Time Temp Pulse Resp B/P (MAP) Pulse Ox O2 Delivery O2 Flow Rate FiO2 02/21/17 08:00 96.7 92 19 129/97 (108) 92 02/21/17 04:16 96.7 93 18 134/100 (111) 94 02/21/17 00:00 96.5 92 18 136/99 (111) 93 02/20/17 20:00 98.2 93 18 145/95 (112) 96 02/20/17 16:00 97.4 115 20 145/95 (112) 91 02/20/17 15:19 Room Air 02/20/17 13:28 Room Air 02/20/17 12:00 96.1 95 19 124/91 (102) 93 I/O 02/20/17 02/20/17 02/20/17 02/21/17 02/21/17 02/21/17 07:00 15:00 23:00 07:00 15:00 23:00 Intake Total 1140 ml 1600 ml 269 ml Output Total 985 ml 580 ml 665 ml Balance 155 ml 1020 ml -396 ml Intake Oral 480 ml 600 ml IV Total 660 ml 1000 ml 269 ml Output Urine Total 500 ml 400 ml Stool Total 150 ml 400 ml Drainage Total 335 ml 180 ml 265 ml # Voids 3 Physical Exam GENERAL: SKIN: Warm and dry. HEAD: Normocephalic. EYES: No scleral icterus. No injection or drainage. NECK: Supple, trachea midline. No JVD or lymphadenopathy. CARDIOVASCULAR: Regular rate and rhythm without murmurs, gallops, or rubs. RESPIRATORY: Breath sounds equal bilaterally. No accessory muscle use. GASTROINTESTINAL: Abdomen soft, non-tender, nondistended. MUSCULOSKELETAL: No cyanosis, or edema. BACK: Nontender without obvious deformity. No CVA tenderness. Assessment and Plan Problem List: (1) NSVT (nonsustained ventricular tachycardia) ICD Codes: I47.2 - Ventricular tachycardia Assessment and Plan 1.) NSVT - lhc wnl, ef=60%, ectopy improved on lopressor and electrolyte repletion 2.) SBE - id rec f/u ct surgery Shiv Daugherty MD Feb 21, 2017 10:40
--- NOTE | 2017-02-21 11:14 | HHI.PR ---
Subjective Remarks POD#5 s/p APR emesis with full liquid diet, tolerating clears c/o's abdominal pain Objective Vital Signs Date Time Temp Pulse Resp B/P (MAP) Pulse Ox O2 Delivery O2 Flow Rate FiO2 02/21/17 08:00 96.7 92 19 129/97 (108) 92 02/21/17 04:16 96.7 93 18 134/100 (111) 94 02/21/17 00:00 96.5 92 18 136/99 (111) 93 02/20/17 20:00 98.2 93 18 145/95 (112) 96 02/20/17 16:00 97.4 115 20 145/95 (112) 91 02/20/17 15:19 Room Air 02/20/17 13:28 Room Air 02/20/17 12:00 96.1 95 19 124/91 (102) 93 I/O 02/20/17 02/20/17 02/20/17 02/21/17 02/21/17 02/21/17 07:00 15:00 23:00 07:00 15:00 23:00 Intake Total 1140 ml 1600 ml 269 ml Output Total 985 ml 580 ml 665 ml Balance 155 ml 1020 ml -396 ml Intake Oral 480 ml 600 ml IV Total 660 ml 1000 ml 269 ml Output Urine Total 500 ml 400 ml Stool Total 150 ml 400 ml Drainage Total 335 ml 180 ml 265 ml # Voids 3 Result Diagram: 02/18/17 0511 02/18/17 0511 Objective Remarks Abdomen soft, nondistended, tender Wounds Clean Stoma pink VINICIUS serosanguinous Assessment and Plan Assessment and Plan Mobilize Hold at [facility] for now recheck plts/CBC Adelita Metz MD Feb 21, 2017 11:14
[2017-02-21 12:00] VITALS: BP 147/93; PULSE 95; RESP 19; TEMP 96.4; O2SAT 96
[2017-02-21] MEDS: D5-NS + KCL 20 MEQ INJ 1,000 ML IV SCH (14:31)
[2017-02-21 16:00] VITALS: BP 124/89; PULSE 92; RESP 18; TEMP 96.8; O2SAT 95
[2017-02-21 20:00] VITALS: BP 125/92; PULSE 105; RESP 18; TEMP 97.1; O2SAT 96
[2017-02-22] VITALS (10 sets, daily range): BP systolic 101–142; BP diastolic 79–97; PULSE 81–104; RESP 16–18; TEMP 96.2–98.7; O2SAT 93–98
[2017-02-22] MEDS: ACETAMINOPHEN/HYDROcodone 325 MG/5 MG TAB PO PRN ×5 (01:26→20:24)
[2017-02-22] MEDS: METOPROLOL TARTRATE 25 MG TAB PO SCH ×3 (05:44→21:53)
[2017-02-22 08:19] LABS: HEMATOCRIT 21.1 % (39.0-51.0); MEAN CELL VOLUME 85.3 FL (80.0-100.0); MEAN CORPUSCULAR HEMOGLOBIN 28.7 PG (27.0-34.0); MEAN CORPUSCULAR HGB CONC 33.7 % (32.0-36.0); PLATELET COUNT 182 TH/MM3 (150-450); RED BLOOD COUNT 2.47 MIL/MM3 (4.50-5.90); RED CELL DISTRIBUTION WIDTH 18.1 % (11.6-17.2); REVIEW FLAG FINAL; WHITE BLOOD COUNT 9.6 TH/MM3 (4.0-11.0)
[2017-02-22] MEDS: SODIUM CHLORIDE 0.9% FLUSH 5 ML FLUSH IVF SCH ×2 (09:00→19:42)
[2017-02-22] MEDS: LORazepam 1 MG TAB PO PRN ×4 (09:17→21:53)
[2017-02-22] MEDS: PANTOPRAZOLE SODIUM 40 MG VIAL IVP SCH (09:17)
[2017-02-22] MEDS: ALVIMOPAN 12 MG CAPSULE - Post-op dosing PO SCH ×2 (09:27→19:31)
[2017-02-22] MEDS: PANTOPRAZOLE SOD 40 MG DELAYED RELEASE TAB PO SCH (09:27)
--- NOTE | 2017-02-22 09:29 | PD.WCN.NOT ---
Wound Consult Description: Consult for NEW OSTOMY TEACHING of stoma per Dr Galvan Communicated with: Patient Recommendation: Colostomy: 1. Empty pouch every 2-3 hours or when 1/3-1/2 full 2. Change appliance every 5-7 days and PRN using 2 1/4" before leaks occur Left upper medial buttock wound: 1. Cleanse every other day for continuity of care. 2. Cut Maxorb extra AG and place into wound bed. 3. Cover with gauze 4. Secure with bordered gauze (adhesive island dressing) 5. Date dressing Additional Information: Patient seen this am on [address] [place] [address] for ostomy assessment and teaching. Ostomy Type: Colostomy Surgeon: Daniel Galvan MD Date of Surgery: Feb 16, 2017 Complete: Education materials, Rx (Left on chart) Educated patient on: Changing appliance every 5-7 days and PRN before leaks occur Opening pouch at top to release air Emptying pouch of effluent when 1/3-1/2 full of effluent Assessing stoma size for correct fit of appliance Peristomal skin care with water only in between wafer changes Stoma decreases in size over the next 6-8 weeks Where to obtain supplies Additional information Patient seen on for ostomy assessment and teaching. Patient states that the pouch was changed last night, however the entire appliance appears to be new. Colostomy is noted to the left side abdomen. Stoma is red, round, moist, moderately protruding, lumen noted in center, functioning with brown soft effluent on stoma and liquid noted in new pouch that was not emptied. Patient states that he has been checking it often and has released the air from it just recently this morning. Colostomy kit size 2 1/4" is in place and intact without leaks. Supplies are available in room for next appliance change. Patient states that he had questions but cannot remember them at this time and will write them when he remembers them for our next teaching session tomorrow Wednesday02/23/17. Dory Barillas CARO CENTERNasreen Feb 22, 2017 09:29
[2017-02-22] MEDS: D5-NS + KCL 20 MEQ INJ 1,000 ML IV SCH ×2 (13:52→23:34)
--- NOTE | 2017-02-22 14:19 | PD.CARD.PN ---
Subjective Subjective Remarks alert in nad, states palpitations less frequent, denies chest pain, no ectopy on telemetry per nursing staff Objective Medications Current Medications Medications (Trade) Dose Ordered Sig/Osvaldo Route Start Time Stop Time Status Last Admin (Entereg) 12 mg BID PO 02/17/17 09:00 02/23/17 21:01 02/22/17 09:27 Potassium Chloride/Dextrose/ Sod Cl 1,000 ml @ 60 mls/hr [id number] IV 02/16/17 18:00 02/22/17 13:52 (NS Flush) 2 ml UNSCH PRN IVF 02/16/17 16:45 (NS Flush) 2 ml BID IVF 02/16/17 21:00 02/22/17 09:00 ([place] 5-325 Mg) 1 tab Q4H PRN PO 02/16/17 16:45 ([place] 5-325 Mg) 2 tab Q4H PRN PO 02/16/17 16:45 02/22/17 12:09 (Tylenol) 650 mg Q4H PRN PO 02/16/17 16:45 (Protonix Inj) 40 mg DAILY IVP 02/17/17 09:00 02/22/17 09:17 (Protonix) 40 mg DAILY PO 02/17/17 09:00 02/22/17 09:27 (Zofran Inj) 4 mg Q6H PRN IV PUSH 02/16/17 16:45 02/16/17 21:49 (Vasotec Inj) 1.25 mg Q4H PRN IV PUSH 02/16/17 16:45 (Vasotec Inj) 2.5 mg Q6H PRN IV PUSH 02/16/17 16:45 02/18/17 14:37 (Chloraseptic Flex) 1 lozenge UNSCH PRN BUCCAL 02/16/17 16:45 Potassium Chloride 100 ml @ 50 mls/hr UNSCH PRN IV 02/16/17 16:45 Potassium Chloride 100 ml @ 25 mls/hr UNSCH PRN IV 02/16/17 16:45 (Lopressor Inj) 5 mg Q5M PRN IV PUSH 02/17/17 14:30 (Lopressor) 25 mg Q8HR PO 02/17/17 22:00 02/22/17 13:53 (Ativan) 1 mg Q6H PRN PO 02/17/17 16:00 02/22/17 09:18 (Reglan Inj) 10 mg Q12HR PRN IVS 02/19/17 10:15 Vital Signs / I&O Vital Signs Date Time Temp Pulse Resp B/P (MAP) Pulse Ox O2 Delivery O2 Flow Rate FiO2 02/22/17 12:00 97.0 99 17 130/88 (102) 98 02/22/17 08:00 96.2 91 16 130/97 (108) 96 02/22/17 07:00 88 02/22/17 05:48 126/94 (105) 02/22/17 04:24 97.3 97 18 101/79 (86) 95 02/22/17 00:30 96.9 99 18 123/96 (105) 93 02/22/17 00:00 99 02/21/17 20:00 97.1 105 18 125/92 (103) 96 02/21/17 16:00 96.8 92 18 124/89 (101) 95 I/O 02/21/17 02/21/17 02/21/17 02/22/17 02/22/17 02/22/17 07:00 15:00 23:00 07:00 15:00 23:00 Intake Total 269 ml 1000 ml 750 ml 752 ml 850 ml Output Total 665 ml 50 ml 870 ml Balance -396 ml 1000 ml 700 ml -118 ml 850 ml Intake Oral 750 ml IV Total 269 ml 1000 ml 752 ml 850 ml Output Urine Total 400 ml 500 ml Drainage Total 265 ml 50 ml 370 ml # Voids 3 # Bowel Movements 0 Physical Exam GENERAL: SKIN: Warm and dry. HEAD: Normocephalic. EYES: No scleral icterus. No injection or drainage. NECK: Supple, trachea midline. No JVD or lymphadenopathy. CARDIOVASCULAR: Regular rate and rhythm without murmurs, gallops, or rubs. RESPIRATORY: Breath sounds equal bilaterally. No accessory muscle use. GASTROINTESTINAL: Abdomen soft, non-tender, nondistended. MUSCULOSKELETAL: No cyanosis, or edema. BACK: Nontender without obvious deformity. No CVA tenderness. Laboratory Laboratory Tests Test 02/22/17 07:35 White Blood Count 9.6 TH/MM3 Red Blood Count 2.47 MIL/MM3 Hemoglobin 7.1 GM/DL Hematocrit 21.1 % Mean Corpuscular Volume 85.3 FL Mean Corpuscular Hemoglobin 28.7 PG Mean Corpuscular Hemoglobin Concent 33.7 % Red Cell Distribution Width 18.1 % Platelet Count 182 TH/MM3 Mean Platelet Volume 8.0 FL Assessment and Plan Problem List: (1) NSVT (nonsustained ventricular tachycardia) ICD Codes: I47.2 - Ventricular tachycardia Assessment and Plan 1.) NSVT - [facility] wnl, ef=60%, ectopy improved on lopressor and electrolyte repletion 2.) SBE - id rec f/u ct surgery Shiv Daugherty MD Feb 22, 2017 14:19
--- NOTE | 2017-02-22 15:49 | HHI.PR ---
Subjective Remarks C/R Surg POD #6 2 afebrile, VSS UO good VINICIUS mod urine bloody - VOIDING cardiology noted - cath normal Objective - Vital Signs Date Time Temp Pulse Resp B/P (MAP) Pulse Ox O2 Delivery O2 Flow Rate FiO2 02/22/17 15:00 81 02/22/17 12:00 97.0 17 130/88 (102) 98 02/20/17 15:19 Room Air 02/19/17 03:14 1.00 Result Diagram: 02/22/17 0735 02/18/17 0511 Objective Remarks PE alert Abd - soft, wound dry, stoma stable - functioning A/P Assessment and Plan Imp: OOB decr IVF start PO slowly - adv dc plans Daniel Galvan MD Feb 22, 2017 15:49
[2017-02-23] VITALS (12 sets, daily range): BP systolic 125–139; BP diastolic 86–97; PULSE 77–102; RESP 16–20; TEMP 96.3–98.6; O2SAT 92–98
[2017-02-23] MEDS: ACETAMINOPHEN/HYDROcodone 325 MG/5 MG TAB PO PRN ×6 (00:31→23:39)
[2017-02-23] MEDS: LORazepam 1 MG TAB PO PRN ×4 (04:20→23:39)
[2017-02-23] MEDS: METOPROLOL TARTRATE 25 MG TAB PO SCH ×3 (06:00→21:40)
[2017-02-23] MEDS: ALVIMOPAN 12 MG CAPSULE - Post-op dosing PO SCH ×2 (08:48→19:09)
[2017-02-23] MEDS: SODIUM CHLORIDE 0.9% FLUSH 5 ML FLUSH IVF SCH ×2 (08:48→19:09)
[2017-02-23] MEDS: PANTOPRAZOLE SOD 40 MG DELAYED RELEASE TAB PO SCH (08:48)
[2017-02-23] MEDS: PANTOPRAZOLE SODIUM 40 MG VIAL IVP SCH (08:48)
[2017-02-23] MEDS: D5-NS + KCL 20 MEQ INJ 1,000 ML IV SCH (09:00)
--- NOTE | 2017-02-23 15:00 | PD.CARD.PN ---
Subjective Subjective Remarks alert in nad Objective Medications Current Medications Medications (Trade) Dose Ordered Sig/Osvaldo Route Start Time Stop Time Status Last Admin (Entereg) 12 mg BID PO 02/17/17 09:00 02/23/17 21:01 02/23/17 08:48 Potassium Chloride/Dextrose/ Sod Cl 1,000 ml @ 60 mls/hr [id number] IV 02/16/17 18:00 02/22/17 13:52 (NS Flush) 2 ml UNSCH PRN IVF 02/16/17 16:45 (NS Flush) 2 ml BID IVF 02/16/17 21:00 02/23/17 08:48 ([place] 5-325 Mg) 1 tab Q4H PRN PO 02/16/17 16:45 ([place] 5-325 Mg) 2 tab Q4H PRN PO 02/16/17 16:45 02/23/17 14:01 (Tylenol) 650 mg Q4H PRN PO 02/16/17 16:45 (Protonix Inj) 40 mg DAILY IVP 02/17/17 09:00 02/23/17 08:48 (Protonix) 40 mg DAILY PO 02/17/17 09:00 02/23/17 08:48 (Zofran Inj) 4 mg Q6H PRN IV PUSH 02/16/17 16:45 02/16/17 21:49 (Vasotec Inj) 1.25 mg Q4H PRN IV PUSH 02/16/17 16:45 (Vasotec Inj) 2.5 mg Q6H PRN IV PUSH 02/16/17 16:45 02/18/17 14:37 (Chloraseptic Flex) 1 lozenge UNSCH PRN BUCCAL 02/16/17 16:45 Potassium Chloride 100 ml @ 50 mls/hr UNSCH PRN IV 02/16/17 16:45 Potassium Chloride 100 ml @ 25 mls/hr UNSCH PRN IV 02/16/17 16:45 (Lopressor Inj) 5 mg Q5M PRN IV PUSH 02/17/17 14:30 (Lopressor) 25 mg Q8HR PO 02/17/17 22:00 02/23/17 14:06 (Ativan) 1 mg Q6H PRN PO 02/17/17 16:00 02/23/17 10:12 (Reglan Inj) 10 mg Q12HR PRN IVS 02/19/17 10:15 Vital Signs / I&O Vital Signs Date Time Temp Pulse Resp B/P (MAP) Pulse Ox O2 Delivery O2 Flow Rate FiO2 02/23/17 12:00 96.7 94 16 125/89 (101) 94 02/23/17 12:00 90 02/23/17 09:58 18 02/23/17 08:00 88 02/23/17 08:00 96.4 80 17 135/88 (104) 92 02/23/17 04:47 97.0 77 18 125/86 (99) 96 02/23/17 04:08 95 02/23/17 00:18 96 02/23/17 00:00 98.2 94 20 135/91 (106) 96 02/22/17 20:00 96.2 92 17 123/90 (101) 96 02/22/17 20:00 104 02/22/17 16:00 98.7 99 16 142/94 (110) 97 02/22/17 15:00 81 I/O 02/22/17 02/22/17 02/22/17 02/23/17 02/23/17 02/23/17 07:00 15:00 23:00 07:00 15:00 23:00 Intake Total 752 ml 850 ml 1570 ml 680 ml Output Total 870 ml 1210 ml 1030 ml Balance -118 ml 850 ml 360 ml -350 ml Intake Oral 1470 ml 680 ml IV Total 752 ml 850 ml 100 ml Output Urine Total 500 ml 1150 ml 880 ml Stool Total 0 ml Drainage Total 370 ml 60 ml 150 ml # Bowel Movements 0 Physical Exam GENERAL: SKIN: Warm and dry. HEAD: Normocephalic. EYES: No scleral icterus. No injection or drainage. NECK: Supple, trachea midline. No JVD or lymphadenopathy. CARDIOVASCULAR: Regular rate and rhythm without murmurs, gallops, or rubs. RESPIRATORY: Breath sounds equal bilaterally. No accessory muscle use. GASTROINTESTINAL: Abdomen soft, non-tender, nondistended. MUSCULOSKELETAL: No cyanosis, or edema. BACK: Nontender without obvious deformity. No CVA tenderness. Imaging GENERAL: SKIN: Warm and dry. HEAD: Normocephalic. EYES: No scleral icterus. No injection or drainage. NECK: Supple, trachea midline. No JVD or lymphadenopathy. CARDIOVASCULAR: Regular rate and rhythm without murmurs, gallops, or rubs. RESPIRATORY: Breath sounds equal bilaterally. No accessory muscle use. GASTROINTESTINAL: Abdomen soft, non-tender, nondistended. MUSCULOSKELETAL: No cyanosis, or edema. BACK: Nontender without obvious deformity. No CVA tenderness. Assessment and Plan Problem List: (1) NSVT (nonsustained ventricular tachycardia) ICD Codes: I47.2 - Ventricular tachycardia Assessment and Plan 1.) NSVT - [facility] wnl, ef=60%, ectopy improved on lopressor and electrolyte repletion 2.) SBE - id rec f/u ct surgery; advised patient and his family to contact case management for assistance arranging follow up Shiv Daugherty MD Feb 23, 2017 15:00
--- NOTE | 2017-02-23 17:48 | PD.WCN.NOT ---
Wound Consult Description: Consult for NEW OSTOMY TEACHING of stoma per Dr Galvan Communicated with: Patient Recommendation: Colostomy: 1. Empty pouch every 2-3 hours or when 1/3-1/2 full 2. Change appliance every 5-7 days and PRN using 2 1/4" before leaks occur Left upper medial buttock wound: 1. Cleanse every other day for continuity of care. 2. Cut Maxorb extra AG and place into wound bed. 3. Cover with gauze 4. Secure with bordered gauze (adhesive island dressing) 5. Date dressing Additional Information: Patient seen on [address] [place] [address] for ostomy assessment and teaching. Ostomy Type: Colostomy Surgeon: Daniel Galvan MD Date of Surgery: Feb 16, 2017 Complete: Education materials, Rx (Left on chart) Educated patient on: Emptying pouch of effluent when 1/3-1/2 full Changing the appliance tomorrow 02/24/17 Stoma appearance and size Changing appliance every 5-7 days and PRN for leaks Additional information Patient seen on [facility] for ostomy assessment. Left abdomen colostomy is noted to be red, round, moist, moderately protruding, lumen noted in center, mildly edematous, functioning with green/brown soft effluent noted in pouch and around stoma. Plans for ostomy wafer to be changed tomorrow 02/24/17 for demonstration and teaching. Dory Barillas [facility] Feb 23, 2017 17:48
[2017-02-23] MEDS ORDERED: HYDR-3516 PO (18:36)
--- NOTE | 2017-02-23 18:42 | HHI.FF ---
Face to Face Verification Diagnosis: (1) Rectal cancer Home Health Nursing Order: Signs/symptoms of disease process Wound care and dressing changes Instructions: stoma teaching I have seen patient Sree West on 02/23/17. My clinical findings support the need for the requested home health care services because: Deconditioned w/ increased weakness Med compliance is questionable Need for psychosocial assistance Infection w/ risk of complications I certify that my clinical findings support that this patient is homebound because: Post-op weakness Need for psychosocial assistance Daniel Galvan MD Feb 23, 2017 18:42
--- NOTE | 2017-02-23 18:43 | HHI.PR ---
Subjective Remarks C/R Surg POD afebrile, VSS UO good VINICIUS mod VOIDING cardiology noted - less ectopy Objective - Vital Signs Date Time Temp Pulse Resp B/P (MAP) Pulse Ox O2 Delivery O2 Flow Rate FiO2 02/23/17 16:00 96.3 100 16 126/92 (103) 95 02/20/17 15:19 Room Air Result Diagram: 02/22/17 0735 Objective Remarks PE alert Abd - soft, wound dry, stoma stable - functioning A/P Assessment and Plan Imp: OOB decr IVF start PO slowly - adv dc plans Daniel Galvan MD Feb 23, 2017 18:43
[2017-02-24] MEDS: ACETAMINOPHEN/HYDROcodone 325 MG/5 MG TAB PO PRN ×2 (03:52→07:52)
[2017-02-24 05:07] VITALS: BP 134/90; PULSE 96; RESP 18; TEMP 97.2; O2SAT 97
[2017-02-24] MEDS: METOPROLOL TARTRATE 25 MG TAB PO SCH (05:08)
--- NOTE | 2017-02-24 07:42 | MB ---
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 This was found after colonoscopy. He has been off the radiation and the chemo for a couple of months. The oncologist is Dr. Harrell and radiation oncologist, Dr. Santana. The patient just underwent exploratory laparotomy, abdominal perineal resection, omental flap 02/16/2017, with cystoscopy, bilateral ureteral catheter 02/16/2017. During the postop course he developed a short run of V-tach and was seen and evaluated by Dr. Daugherty, who did an echocardiogram which showed an EF of 30 to 35%, trace mitral valve regurgitation, moderate tricuspid valve regurgitation, large vegetation on the tricuspid valve. This was followed by heart catheterization where that ejection fraction is documented at 60% and showed no significant coronary artery disease. He had recommended beta-javan therapy. We were consulted due to the vegetative disease on his tricuspid valve. He was treated back in November 15, 2016, with endocarditis, MRSA bacteremia, was treated with eight week therapy with IV antibiotics. At that time the vegetation was moderate, mobile, echogenic structure consistent with vegetation. After discussing with the patient, he has a history of IV drug use. The last time he used anything was about four months ago where at that time his urine was positive for cocaine which he snorted, but he did inject Dilaudid IV. He was a prior drug user for five years, went into rehab and had a couple of relapses. He has been negative he states for any IV drug use since his last admission back in October of 2016. PAST MEDICAL HISTORY: 1. MRSA bacteremia with tricuspid valve endocarditis treated with an eight week course of antibiotics. 2. Moderately invasive differentiated adenocarcinoma of the rectum, treated with oral chemotherapy. 3. Colonoscopy. 4. Stage III left buttocks pressure ulcer. ALLERGIES: None known. HOME MEDICATIONS: Augmentin. FAMILY HISTORY: Noncontributory. SOCIAL HISTORY: The patient is single, has four children, lives with his mother. Quit smoking in November of 2016, smoked for 20 years, rare alcohol. REVIEW OF SYSTEMS: GENERAL: No night sweats, fever, heat and cold intolerance. Skin: No psoriasis, itching or hives. HEENT: No blurred vision, hearing loss. Respiratory: No cough, shortness of breath. No chest pain. Gastrointestinal: He is just now starting some liquids or regular diet. Genitourinary: No burning, frequency, urgency. GROCERY MANAGER: No history of TIA, CVA, seizure disorder. PHYSICAL EXAMINATION: VITAL SIGNS: Blood pressure 120/60, heart rate of 90, temperature max 96.7. GENERAL: The patient is awake, alert, in no acute distress. HEAD: Normocephalic, atraumatic. Pupils equal and reactive. Oral mucosa pink, moist. NECK: Supple. No JVD. HEART: Heart sounds S1-S2, regular rate and rhythm. No audible rubs or gallops. LUNGS: Clear to auscultation, no wheezes, rales or rhonchi. ABDOMEN: Soft. He has a left stoma, stable with some dark brownish drainage. The stoma is pink. He has a midline abdominal incision with malini intact and well approximated. He has a right lower quadrant VINICIUS drain. EXTREMITIES: Reveal no cyanosis, clubbing or edema. LABORATORY DATA: Lab work shows hemoglobin 7.1, hematocrit of 21, white cell count of 9.6, platelet count 182, sodium 139, potassium 4.1, BUN 9, creatinine 0.6, troponin less than 0.02, BMP is 388. Recent echocardiogram as above. Heart catheterization as above. IMPRESSION/RECOMMENDATION: This is a 46-year-old male with history of prior IV drug use. Last time he had a urine tox was 4 months ago. He says he has not used since then. He had prior IV drug use for above five years and has gone into rehab with relapse. He was treated in October for MRSA bacteremia, tricuspid valve endocarditis. The patient has been evaluated by Infectious Disease for persistent large vegetation. No new symptoms have been reported. Their recommendation is to observe off antibiotics, follow up with cardiothoracic as outpatient and at this time we agree that the patient needs to recover from his surgical course and be evaluated in our office regarding further evaluation for possible need for tricuspid valve replacement. Further plan per Dr. Ocampo. Dictated by: WENDIE Palomares Beet Kevyn MARRERO /3:55 PM /7:37 AM
[2017-02-24] MEDS: PANTOPRAZOLE SOD 40 MG DELAYED RELEASE TAB PO SCH (07:51)
[2017-02-24] MEDS: PANTOPRAZOLE SODIUM 40 MG VIAL IVP SCH (07:51)
[2017-02-24] MEDS: SODIUM CHLORIDE 0.9% FLUSH 5 ML FLUSH IVF SCH (07:53)
[2017-02-24 08:00] VITALS: BP 119/84; PULSE 92; RESP 20; TEMP 96.9; O2SAT 95
[2017-02-24] MEDS: D5-NS + KCL 20 MEQ INJ 1,000 ML IV SCH (09:19)
--- NOTE | 2017-02-24 11:31 | PD.WCN.NOT ---
Wound Consult Description: Consult for NEW OSTOMY TEACHING of stoma per Dr Galvan Communicated with: Patient Patients mother at bedside ANSLEY Awan Recommendation: Colostomy: 1. Empty pouch every 2-3 hours or when 1/3-1/2 full 2. Change appliance every 5-7 days and PRN using 2 1/4" before leaks occur Left upper medial buttock wound: 1. Cleanse every other day for continuity of care. 2. Cut Maxorb extra AG and place into wound bed. 3. Cover with gauze 4. Secure with bordered gauze (adhesive island dressing) 5. Date dressing Additional Information: Patient seen earlier this am for ostomy assessment, teaching, and appliance change prior to discharge with supplies ordered from [facility] for patient to go home. Starter kit ordered via [facility] and being sent to patient home via 2 day air (expected delivery date is Wednesday02/26/17. Ostomy Type: Colostomy Surgeon: Daniel Galvan MD Date of Surgery: Feb 16, 2017 Complete: Starter kit (sent), Education materials, Rx (Left on chart), Other ( Ostomy appliance changed with patient assistance prior to discharge) Educated patient on: Emptying pouch of air/effuent every 2-3 hours and PRN Changing wafer every 5-7 days and PRN before leaks occur Removing wafer with adhesive removal wipes Inspecting the barrier after removal for breakdown Stoma appearance Stoma size Peristomal skin care Warming wafer prior to applying for better adhesion Closing pouch before attaching to wafer Shaving peristomal hair with an electric razor Additional information Patient seen on [address] [place] [address] for ostomy assessment, teaching, and ostomy appliance change prior to discharge. Patient assisted freelance writer in removing barrier, inspecting barrier, measuring stoma, and cleansing peristomal skin. Patient was assisted in applying new moldable wafer and pouch. Stoma is measuring 1 1/2" round, red, moist, moderately protruding, mildly edematous, lumen noted to center and functioning with green/brown soft effluent and mucus. Mucocutaneous junction is noted with circumferential sutures, otherwise unremarkable. Peristomal skin is unremarkable. Dory Barillas [facility] Feb 24, 2017 11:31
[2017-02-24 12:00] VITALS: BP 113/78; PULSE 93; RESP 19; TEMP 96.9; O2SAT 95
== END 2017-02-24 12:34 | disposition home health service (06) | DRG 329 ==
LOC: HSDI 11:54 → HCPC 18:13 → N07A 02-19 13:30
PROVIDERS: ADMIT Colon & Rectal Surgery; ATTEND Colon & Rectal Surgery
PROC: 0DBQ0ZZ Excision of Anus, Open Approach (ICD-10-PCS; 2017-02-16)
PROC: 0D1N0Z4 Bypass Sigmoid Colon to Cutaneous, Open Approach (ICD-10-PCS; 2017-02-16)
PROC: 0WUF07Z Supplement Abdominal Wall with Autologous Tissue Substitute, Open Approach (ICD-10-PCS; 2017-02-16)
PROC: 07BC0ZX Excision of Pelvis Lymphatic, Open Approach, Diagnostic (ICD-10-PCS; 2017-02-16)
PROC: 0T788DZ Dilation of Bilateral Ureters with Intraluminal Device, Via Natural or Artificial Opening Endoscopic (ICD-10-PCS; 2017-02-16)
PROC: 0DTP0ZZ Resection of Rectum, Open Approach (ICD-10-PCS; principal; 2017-02-16 13:59)
PROC: 0DBN0ZZ Excision of Sigmoid Colon, Open Approach (ICD-10-PCS; 2017-02-16 13:59)
PROC: 4A023N7 Measurement of Cardiac Sampling and Pressure, Left Heart, Percutaneous Approach (ICD-10-PCS; 2017-02-18)
PROC: B2111ZZ Fluoroscopy of Multiple Coronary Arteries using Low Osmolar Contrast (ICD-10-PCS; 2017-02-18)
PROC: B2151ZZ Fluoroscopy of Left Heart using Low Osmolar Contrast (ICD-10-PCS; 2017-02-18)
DX: C20 Malignant neoplasm of rectum (principal); L89.323 Pressure ulcer of left buttock, stage 3; I33.0 Acute and subacute infective endocarditis; I47.2 Ventricular tachycardia; I42.9 Cardiomyopathy, unspecified; D69.6 Thrombocytopenia, unspecified; I27.20 Pulmonary hypertension, unspecified; I08.1 Rheumatic disorders of both mitral and tricuspid valves; Z87.891 Personal history of nicotine dependence; R73.9 Hyperglycemia, unspecified; Z86.14 Personal history of Methicillin resistant Staphylococcus aureus infection
CPT/HCPCS: 80048; 83735; 83880; 84484; 85025; 85027; 86850; 86900; 86901; 88309; 93005; 93306; 93458; 94150; 99152; C1769; C1893; C9113; J0131; J0690; J1100; J1170; J1644; J1885; J2250; J2270; J2370; J2405; J2765; J3010; J3475; J3480; J7040; J7120; Q9967